=== PATIENT | female | born 2000 | race Caucasian/White ===

== ENCOUNTER 2022-11-14 05:06 | Emergency (ER) | payer BC, OTHER, SELFPAY ==
[2022-11-14 05:19] VITALS: BP 106/75; PULSE 103; RESP 18; TEMP 36.8; O2SAT 96; BMI 51.6
--- NOTE | 2022-11-14 05:44 | PC.NURSE ---
patient c/o nausea and vomiting since 6pm yesterday when she took her colonoscopy prep.patient states she was nauseous before she took it but believes it was due to not eating all day in preparment for colonoscopy this morning at 11am. patient states she still has to finish the rest of her prep at 6am this morning. patient has been having diarrhea since taking prep which is normal. complaints of slight abdominal cramping but states its not that bad vomiting x2
--- NOTE | 2022-11-14 05:51 | ED_ITS ---
HPI - Nausea/Vomiting/Diarrhea General Chief complaint: Nausea/Vomiting/Diarrhea Stated complaint: NAUSEA Time Seen by Provider: 11/14/22 05:10 Source: patient and family Mode of arrival: walk-in Limitations: no limitations History of Present Illness HPI Narrative: This 22-year-old female presents for evaluation of nausea vomiting and diarrhea. She is currently doing a colon prep for colonoscopy later this morning at [facility]. She is having a colonoscopy performed because she had some lower gastrointestinal bleeding in the recent past. She started her colon prep last night around 10 PM and around midnight started having nausea and diarrhea. She has had 2 episodes of vomiting since that time and multiple episodes of diarrhea. She denies any chest pain or shortness of breath. MD elicited complaint: Reports nausea, vomiting and diarrhea Related Data Home Medications Medication Instructions Recorded Confirmed peg-electrolyte solution 420 gram ml 11/14/22 oral solution vits no.130-ferrous fum tab 11/14/22 27 mg iron-folic acid 800 mcg tablet ( Vitamin) Allergies Allergy/AdvReac Type Severity Reaction Status Date / Time amoxicillin Allergy Verified 11/14/22 05:23 Review of Systems ROS Status of ROS 10 or more systems reviewed and unremarkable except as noted in history and below PFSH PFS Social History Smoking status: Never smoker Exam Narrative Exam Narrative: Constitutional: Nontoxic thin female resting comfortably on the stretcher, no respiratory distress, 1 episode of emesis emergency department Vital signs reviewed, the patient is afebrile, she is medically tachycardic with a pulse of 103, she is not hypoxic with pulse ox 96 percent on room air HEENT: Normocephalic atraumatic, mucous membranes are dry, no scleral icterus Neck: supple Chest: Clear to auscultation with good air entry, there is no wheezing rhonchi or rales appreciated, patient speaking in complete sentences CVS: Regular rate and rhythm at 90 and exam, no murmurs rubs or gallops appreciated Abd: Nondistended, nontender, no rebound guarding rigidity, hyperactive bowel sounds appreciated, 1 episode of emesis in emergency department Ext: Nontender, full range of motion Neuro: No focal deficits Psych: tearful Constitutional Vital Signs - 24 hr 11/14/22 05:19 Temperature 98.2 F Pulse Rate [Monitor] 103 H Respiratory Rate 18 Blood Pressure [Right Arm] 106/75 Pulse Oximetry 96 Oxygen Delivery Method Room Air Course Vital Signs Vital signs: Vital Signs Temperature 98.2 F 11/14/22 05:19 Pulse Rate 103 H 11/14/22 05:19 Respiratory Rate 18 11/14/22 05:19 Blood Pressure 106/75 11/14/22 05:19 Pulse Oximetry 96 11/14/22 05:19 Oxygen Delivery Method Room Air 11/14/22 05:19 Temperature 98.2 F 11/14/22 05:19 Pulse Rate 103 H 11/14/22 05:19 Respiratory Rate 18 11/14/22 05:19 Blood Pressure 106/75 11/14/22 05:19 Pulse Oximetry 96 11/14/22 05:19 Oxygen Delivery Method Room Air 11/14/22 05:19 MDM - Nausea/Vomiting/Diarrhea MDM Narrative Medical decision making narrative: This 22-year-old female who is scheduled to have a colonoscopy later today was brought to the emergency department by her mother for evaluation of nausea vomiting and diarrhea. The symptoms started after starting the bowel prep last night. She has had diarrhea throughout the night and has had 2 episodes of vomiting. She does not think she can finish the colon prep. She denies any chest pain or shortness of breath. She has no specific abdominal pain. Her abdomen is soft. She did have an episode of vomiting in the emergency department. An IV is placed and she was medicated with IV fluids, Zofran, Pepcid and Toradol. She was reevaluated and states she is feeling somewhat better. Her vomiting has resolved. She has a normal white count and hemoglobin. lactic acid is normal. She will be discharged home with Rx for zofran. She has decided that she is going to complete the bowel prep this morning and have the colonoscopy She is otherwise improved and stable for discharge. Lab Data Labs: Lab Results 11/14/22 Range/Units 05:35 WBC 8.1 (4.0-11.0) 10^3/uL RBC 4.39 (4.20-5.40) 10^6/uL Hgb 13.4 (12.0-16.0) g/dL Hct 40.2 (36.0-48.0) % MCV 91.6 (81.0-99.0) fL MCH 30.5 (26.7-34.0) pg MCHC 33.3 (29.9-35.2) g/dL RDW 13.5 (11.0-15.0) % Plt Count 168 (150-450) 10^3/uL MPV 10.5 (9.5-13.5) fL Neut % (Auto) 77.2 H (43.0-75.0) % Lymph % (Auto) 15.8 L (20.5-60.0) % Dawes % (Auto) 6.0 (1.7-12.0) % Eos % (Auto) 0.1 L (0.9-7.0) % Baso % (Auto) 0.4 (0.2-2.0) % Neut # (Auto) 6.3 (1.4-6.5) 10^3/uL Lymph # (Auto) 1.3 (1.2-3.8) 10^3/uL Dawes # (Auto) 0.5 (0.3-0.8) 10^3/uL Eos # (Auto) 0.0 (0.0-0.7) 10^3/uL Baso # (Auto) 0.0 (0.0-0.1) 10^3/uL Abs Immat Gran (auto) 0.04 H (0.00-0.03) 10^3/uL Imm/Tot Granulo (auto) 0.5 (0.0-0.5) % Sodium 133 L (136-145) mmol/L Potassium 3.8 (3.5-5.1) mmol/L Chloride 100 (98-107) mmol/L Carbon Dioxide 21.0 (21.0-32.0) mmol/L Anion Gap 15.8 BUN 15.0 (7.0-18.0) mg/dL Creatinine 0.71 (0.55-1.02) mg/dL Est GFR ( Amer) >60 (>=60) Est GFR (Non-Af Amer) >60 (>=60) BUN/Creatinine Ratio 21.1 Glucose 84 (74-106) mg/dL Lactate 1.6 (0.4-2.0) mmol/L Calcium 8.9 (8.5-10.1) mg/dL Total Bilirubin 1.2 H (0.2-1.0) mg/dL AST 17 (15-37) U/L ALT 19 (14-59) U/L Alkaline Phosphatase 81 (46-116) U/L Total Protein 7.1 (6.4-8.2) g/dL Albumin 4.0 (3.4-5.0) g/dL Globulin 3.1 g/dL Albumin/Globulin Ratio 1.3 Lipase 94.0 (73.0-393.0) U/L Discharge Plan Discharge Chief Complaint: Nausea/Vomiting/Diarrhea Clinical Impression: Drug-induced nausea and vomiting Patient Disposition: Home, Self-Care Time of Disposition Decision: 06:58 Condition: Good Prescriptions / Home Meds: No Action peg-electrolyte soln 420 gram recon soln Vitamin 27 mg iron- 800 mcg tablet Stand Alone Forms: Portal Instructions Referrals: EMIR HACKETT [Primary Care Provider] - 1 week
[2022-11-14] MEDS: 0.9 % SODIUM CHLORIDE 1,000 ML 999 ML IV (06:00)
[2022-11-14] MEDS: ONDANSETRON PF 4 MG/2 ML VIAL IV (06:01)
[2022-11-14] MEDS: KETOROLAC TROMETHAMINE 30 MG/ML VIAL 15 MG IVP (06:01)
[2022-11-14] MEDS: FAMOTIDINE/PF 20 MG/2 ML VIAL IV (06:01)
[2022-11-14 06:13] LABS: Basophils Percent Auto 0.4 % (0.2-2.0); Eosinophils Percent Auto 0.1 % (0.9-7.0); Hematocrit 40.2 % (36.0-48.0); Hemoglobin 13.4 g/dL (12.0-16.0); Immature Granulocytes Abs Auto 0.04 10^3/uL (0.00-0.03); Immature Granulocytes Pct Auto 0.5 % (0.0-0.5); Lymphocytes Absolute Auto 1.3 10^3/uL (1.2-3.8); Lymphocytes Percent Auto 15.8 % (20.5-60.0); Mean Corpuscular HGB Conc 33.3 g/dL (29.9-35.2); Mean Corpuscular Hemoglobin 30.5 pg (26.7-34.0); Mean Corpuscular Volume 91.6 fL (81.0-99.0); Mean Platelet Volume 10.5 fL (9.5-13.5); Monocytes Absolute Auto 0.5 10^3/uL (0.3-0.8); Neutrophils Absolute Auto 6.3 10^3/uL (1.4-6.5); Neutrophils Percent Auto 77.2 % (43.0-75.0); Platelet Count 168 10^3/uL (150-450); Red Blood Count 4.39 10^6/uL (4.20-5.40); Red Cell Distribution Width 13.5 % (11.0-15.0); White Blood Count 8.1 10^3/uL (4.0-11.0)
[2022-11-14 06:29] LABS: Lactate/Lactic Acid 1.6 mmol/L (0.4-2.0)
[2022-11-14 06:52] LABS: Alanine Aminotransferase 19 U/L (14-59); Albumin Globulin Ratio 1.3; Alkaline Phosphatase 81 U/L (46-116); Anion Gap 15.8; Aspartate Amino Transferase 17 U/L (15-37); BUN Creatinine Ratio 21.1; Bilirubin Total 1.2 mg/dL (0.2-1.0); Calcium 8.9 mg/dL (8.5-10.1); Chloride 100 mmol/L (98-107); Estimated GFR (African America >60 (>=60); Estimated GFR (Non-African Ame >60 (>=60); Globulin 3.1 g/dL; Glucose 84 mg/dL (74-106); Potassium 3.8 mmol/L (3.5-5.1); Sodium 133 mmol/L (136-145); Total Protein 7.1 g/dL (6.4-8.2)
== END 2022-11-14 07:27 | disposition home or self-care (01) ==
PROVIDERS: Emergency Provider Emergency Medicine; PCP Family Medicine
DX: R11.2 Nausea with vomiting, unspecified (principal); R11.10 Vomiting, unspecified
CPT/HCPCS: 36415; 80053; 83605; 83690; 84703; 85025; 96374; 96375; 99284

== ENCOUNTER 2024-02-19 13:34 | Outpatient (OUT) | payer OTHER, SELFPAY ==
--- NOTE | 2024-02-19 | US_ITS ---
[address] [address] Patient Name: BASSAM FERGUSON MRN: [id number] date: 2000 Sex: F Assigned Patient Location: [facility] Current Patient Location: [facility] Accession/Order Number: [id number] Exam Date: 02/19/2024 13:36 Report Date: 02/19/2024 15:42 At the request of: SHADI VAZQUEZ Procedure: US OB transvaginal EXAMINATION: US OB transvaginal HISTORY: MISSED MENSES COMPARISON: No relevant comparison available. FINDINGS: Transvaginal images Sierra intrauterine gestation Gestational sac: 4.09 cm, 9 weeks 3 days CRL: 2.02 cm, 8 weeks 4 days Yolk sac: 3.7 mm Heart rate: 171 beats minute Cervix: Closed, 4.2 cm Clinical age: 8 weeks 6 days Clinical ARTUR: 09/20/2024 Ultrasound age: 8 weeks 4 days Ultrasound ARTUR: 09/26/2024 US/US OB transvaginal IMPRESSION: Viable sierra intrauterine gestation measuring 8 weeks 4 days Electronically authenticated by: NATASHA HERNANDEZ Date: 02/19/2024 15:42
== END 2024-02-19 13:35 | disposition home or self-care (01) ==
LOC: NOMS 13:35
PROVIDERS: PCP Family Medicine; Visit Provider Obstetrics & Gynecology
DX: Z34.91 Encounter for supervision of normal pregnancy, unspecified, first trimester (principal); Z3A.08 8 weeks gestation of pregnancy; N92.6 Irregular menstruation, unspecified
CPT/HCPCS: 76817

== ENCOUNTER 2024-02-27 10:55 | Outpatient (OUT) | payer OTHER, SELFPAY ==
--- OUTSIDE RECORDS SUMMARY | 2024-02-27 11:01 | XMS_ITS | CCD ---
Author Organization [facility] ion [facility] Care Team Providers Care Clock Maker Name Role Phone DR EMIR HACKETT Primary Care Unavailable ANAI, DR BRIAN Madera Admitting Unavailabl e ANAI, DR BRIAN Madera Attending Unavailabl e ANAI, DR BRIAN Madera Consulting Unavailabl e GRECHNY ., KRISTY ECHAVARRIA Consulting Unavailabl e OWENS, HUGO Consulting Unavailable LEW, DR EMIR Fisher Primary Care Unavailable ERICKA Go, DR MORIN Admitting Unavailable ERICKA Go, DR MORIN Attending Unavailable SHREE, DR AGUSTIN Montes De Oca Consulting Unavailable ERICKA Go, DR MORIN Consulting Unavailable Unavailable Primary Care Provider UnavailCARLI Garcia Referring Unavailable VENITA AMBROSIO Admitting Unavailable VENITA AMBROSIO Attending Unavailable CARLI WILD Referring Unavailable Brian Harris ROBERT Primary Care Provider [phone] MD Brian Elizabeth Primary Care Provider MD Krzysztof Montesinos Admit Provider MD Krzysztof Montesinos Attending Provider [phone] HARRIS MONTAGUE Attending Unavailable EMIR HACKETT Referring Unavailable HARRIS MONTAGUE Primary Care Unavailable HARRIS MONTAGUE Attending Unavailable HARRIS MONTAGUE Referring Unavailable BRIANHARRIS Primary Care Unavailable BRIANHARRIS Referring Unavailable BRIANHARRIS Primary Care Unavailable Glenn, Brian Primary Care Unavailable Demetrius Kelley Attending Unavailable Krzysztof Montesinos Admitting Unavailab le Brian Elizbaeth Primary Care Unavailable Krzysztof Montesinos Admitting Unavailab le Krzysztof Montesinos Attending Unavailab SHADI Trevino Attending Unavailable BRIANKAL FinneyHAMID M Primary Care Unavailable NATASHA ELIZABETH Attending Unavailable HAROLDO SOTO Attending Unavailable HAROLDO SOTO Referring Unavailable BRIAN MUHAMID M Primary Care Unavailable SHADI FLOWERS RDonavan Referring Unavailable BRIAN, MUHAMID M Primary Care Unavailable SHADI FLOWERS RDonavan Referring Unavailable BRIAN MUHAMID M Primary Care Unavailable SHADI FLOWERS RDonavan Referring Unavailable BRIAN, MUHAMID M Primary Care Unavailable SHADI FLOWERS RDonavan Referring Unavailable BRIAN, MUHAMID M Primary Care Unavailable BRIAN, KALHAMID M Primary Care Unavailable ALEX CHAVES Attending Unavailable SHADI FLOWERS Referring Unavailable BRIANKALHAMID M Primary Care Unavailable Allergies Allergy Classification Reported Allergen(s) Allergy Type Date of Onset Reaction(s) Facility (4 sources) Amoxicillin; Translations: [AMOXICILLIN] Drug Allergy 01-14-2021 [facility] Repository (3 sources) Amoxicillin Drug Allergy 04-07-2021 Vomiting [facility] Medications Current Medications Medication Drug Class(es) Dates Sig (Normalized) Sig (Original) nicotine 2 mg chewing gum (1 source) Cholinergic Nicotinic Agonist Start: 11-25-2023 Nicotine (Polacrilex) Active 2 MG BUCCAL Q2H 20 November 25, 2023 12:00am Pnv Cmb#95-Ferrous Fumarate-Fa () 28 mg iron- 800 mcg tablet (1 source) Start: 11-22-2023 take 1 tablet by mouth once daily Pnv Cmb#95-Ferrous Fumarate-Fa () 28 mg iron- 800 mcg tablet Active 1 TAB PO Daily November 22, 2023 12:00am polyethylene glycol 3350 16643 mg powder for oral solution (1 source) Osmotic Laxative Start: 11-22-2023 Polyethylene Glycol 3350 (Miralax) 17 gram/dose powder Active 17 GM PO Daily November 22, 2023 12:00am 25/iron fum/folic/dha (-1 ORAL) (2 sources) take 1 tablet by mouth once daily 25/iron fum/folic/dha (-1 ORAL) Take 1 tablet by mouth daily. 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] Onset: 2 10-23-2022 Chronic Gastrointestinal hemorrhage (3 sources) Gastrointestinal hemorrhage, unspecified; Translations: [Rectal hemorrhage] Onset: 2 Episodic Genitourinary symptoms and ill-defined conditions (3 sources) Personal history of urinary (tract) infections; Translations: [Dysuria] Onset: 3 Episodic Menstrual disorders (1 source) Irregular menstruation, unspecified; Translations: [Irregular menstruation, unspecified] Onset: 4 Chronic Mood disorders (3 sources) Recurrent major depressive episodes, moderate ; Translations: [Major depressive disorder, recurrent, moderate] Onset: 4 11-23-2023 Chronic Mood disorders (3 sources) Mood disorders; Translations: [Depression, unspecified] Onset: 4 07-23-2023 Other gastrointestinal disorders (1 source) Irritable bowel syndrome; Translations: [Mixed irritable bowel syndrome] 07-23-2023 Chronic Other gastrointestinal disorders (1 source) Right lower quadrant abdominal swelling, mass and lump; Translations: [Right lower quadrant abdominal swelling, mass and lump] Onset: 4 Episodic Other lower respiratory disease (4 sources) Shortness of breath; Translations: [SHORTNESS OF BREATH] Onset: 3 Episodic Other and delivery including normal (3 sources) Finding of ; Translations: [Encounter for care and examination of lactating mother] Onset: 2 11-07-2021 Episodic Other screening for suspected conditions (not mental disorders or infectious disease) (2 sources) CT of abdomen abnormal; Translations: [Abnormal findings on diagnostic imaging of other abdominal regions, including retroperitoneum] Onset: 3 Episodic Residual codes; unclassified (1 source) Gestation period, 9 weeks; Translations: [9 weeks gestation of ] 07-23-2023 Episodic Unclassified (1 source) Establish Care Onset: 4 Unclassified (1 source) Vaginal Bleeding - Onset: 4 Unclassified (1 source) Vaginal Bleeding - 10 wks Onset: 4 Urinary tract infections (1 source) Urinary tract infectious disease Onset: 4 Episodic Past or Other Problems Problem Classification Problem Date Documented Da te Episodic/Chronic Abdominal pain (4 sources) Lower abdominal pain, unspecified; Translations: [LOWER ABDOMINAL PAIN UNSPECIFIED] Onset: 02-14-2022 Episodic Hemorrhage during ; abruptio placenta; placenta previa (1 source) Hemorrhage in early , unspecified; Translations: [Hemorrhage in early , unspecified] Onset: 07-30-2023 Episodic Hemorrhoids (2 sources) Residual hemorrhoidal skin tags; Translations: [Other hemorrhoids] Onset: 02-15-2022 Episodic Spontaneous (1 source) Complete or unspecified spontaneous without complication; Translations: [Complete or unspecified spontaneous without complication] Onset: 08-06-2023 Episodic Results Test Name Value Interpretation Reference Range Facility CBC AND AUTO DIFFon 02-19-20 24 ABSOLUTE BASOPHIL 0.0 X10E9/L Normal 0.0-0.[address] [facility] Comment on above: Performed By: #### C MIL [facility], #### [facility] ([id number]) [address] [place] [address] 97396 ABSOLUTE NEUTROPHIL 6.7 X10E9/L High 1.5-6.6 [facility] Comment on above: Performed By: #### C MIL [facility], #### [facility] ([id number]) [address] [place] [address] 56344 Basophils/100 WBC (Bld) 0.3 % Normal [facility] Comment on above: Performed By: #### C MIL [facility], #### [facility] ([id number]) [address] [place] [address] 08147 Eosinophils (Bld) [#/Vol] 0.0 10*3/uL Normal 0.0-0.4 [facility] Comment on above: Performed By: #### Manish JAEGER CMP, #### [facility] ([id number]) [address] [place] [address] 47224 Eosinophils/100 WBC (Bld) 0.4 % Normal [facility] Comment on above: Performed By: #### Manish JAEGER [facility], #### [facility] ([id number]) [address] [place] [address] 04617 Erythrocyte distribution width (RBC) [Ratio] 14.2 % Normal 11.5-15.0 [facility] Comment on above: Performed By: #### Manish JAEGER CMP, #### [facility] ([id number]) [address] [place] [address] 62375 Hematocrit (Bld) [Volume fraction] 40.0 % Normal 35-47 [facility] Comment on above: Performed By: #### Manish JAEGER [facility], #### [facility] ([id number]) [address] [place] [address] 11076 Hemoglobin (Bld) [Mass/Vol] 13.7 g/dL Normal 11.7-15.5 [facility] Comment on above: Performed By: #### Manish JAEGER CMP, #### [facility] ([id number]) [address] [place] [address] 79699 Lymphocytes (Bld) [#/Vol] 1.6 10*3/uL Normal 1.0-3.5 [facility] Comment on above: Performed By: #### Manish JAEGER CMP, #### [facility] ([id number]) [address] [place] [address] 86425 Lymphocytes/100 WBC (Bld) 17.6 % Normal [facility] Comment on above: Performed By: #### Manish JAEGER CMP, #### [facility] ([id number]) [address] [place] [address] 75355 MCH (RBC) [Entitic mass] 31.3 pg Normal 27-34 [facility] Comment on above: Performed By: #### Manish JAEGER CMP, #### [facility] ([id number]) [address] [place] [address] 07475 MCHC (RBC) [Mass/Vol] 34.3 g/dL Normal 32-36 [facility] Comment on above: Performed By: #### Manish JAEGER CMP, #### [facility] ([id number]) [address] [place] [address] 13060 MCV (RBC) [Entitic vol] 91 fL Normal 80-100 [facility] Comment on above: Performed By: #### Manish JAEGER CMP, #### [facility] ([id number]) [address] [place] [address] 14033 Monocytes (Bld) [#/Vol] 0.6 10*3/uL Normal 0-0.9 [facility] Comment on above: Performed By: #### Manish JAEGER CMP, #### [facility] ([id number]) [address] [place] [address] 58403 Monocytes/100 WBC (Bld) 6.6 % Normal [facility] Comment on above: Performed By: #### Manish JAEGER CMP, #### [facility] ([id number]) [address] [place] [address] 08970 Neutrophils/100 WBC (Bld) 75.1 % Normal [facility] Comment on above: Performed By: #### Manish JAEGER CMP, #### [facility] ([id number]) [address] [place] [address] 96189 Platelet mean volume (Bld) [Entitic vol] 9.0 fL Normal 7-12 [facility] Comment on above: Performed By: #### C MIL CMP, #### [facility] ([id number]) [address] [place] [address] 02723 Platelets (Bld) [#/Vol] 173 10*3/uL Normal 150-450 [facility] Comment on above: Performed By: #### C MIL CMP, #### [facility] ([id number]) [address] [place] [address] 57130 RBC COUNT 4.39 X10E12/L Normal 3.80-5.20 [facility] Comment on above: Performed By: #### Manish JAEGER CMP, #### [facility] ([id number]) [address] [place] [address] 16185 WBC (Bld) [#/Vol] 8.9 10*3/uL Normal 4.0-11.[address] [facility] Comment on above: Performed By: #### Manish JAEGER CMP, #### [facility] ([id number]) [address] [place] [address] 90613 DRUG SCREEN, URINEon 024 AMPHETAMINE/METHAMP Negative Normal NEG [facility] Comment on above: Result Comment: AMPH /METH screening cut off = 1000 ng/mL Performed By: #### C MIL CMP, #### [facility] ([id number]) [address] [place] [address] 89090 BARBITURATES Negative Normal NEG [facility] Comment on above: Result Comment: Marcela iturates screening cut off value = 200 ng/mL Performed By: #### C MIL, CMP, #### [facility] ([id number]) [address] [place] [address] 14244 BENZODIAZEPINES Negative Normal [facility] Comment on above: Result Comment: Jose odiazepines screening cut off value = 200 ng/mL Performed By: #### C MIL [facility], #### [facility] ([id number]) [address] [place] [address] 34706 CANNABINOIDS Negative Normal NEG [facility] Comment on above: Result Comment: Tre abinoids/THC screening cut off value = 50 ng/mL Performed By: #### C MIL [facility], #### [facility] ([id number]) [address] [place] [address] 38804 COCAINE METABOLITE Negative Normal NEG [facility] Comment on above: Result Comment: Coca ine screening cut off value = 300 ng/mL Performed By: #### C MIL [facility], #### [facility] ([id number]) [address] [place] [address] [address] [facility] Comment on above: Result Comment: Ecst asy screening cut off value = 500 ng/mL This report is intended for use in clinical monitoring or management of patients. Performed By: #### C MIL [facility], #### [facility] ([id number]) [address] [place] [address] 42424 [address] [facility] Comment on above: Result Comment: Meth adone screening cut off value = 300 ng/mL. Performed By: #### C MIL [facility], #### [facility] ([id number]) [address] [place] [address] 43144 OPIATES Negative Normal NEG [facility] Comment on above: Result Comment: Opia krys screening cut off value = 300 ng/mL NOTE: This test is used for the detection of codeine, hydrocodone (>1000 ng/mL), morphine and hydromorphone (>900 ng/mL) in urine. Performed By: #### C NIKA JAEGER, #### [facility] ([id number]) [address] [place] [address] 16136 OXYCODONE Negative Normal NEG [facility] Comment on above: Result Comment: Oxyc odone screening cut off value = 300 ng/mL NOTE: This test is used for the detection of oxycodone and oxymorphone in urine. Performed By: #### C NIKA JAEGER, #### [facility] ([id number]) [address] [place] [address] 32655 PHENCYCLIDINE Negative Normal NEG [facility] Comment on above: Result Comment: Phen cyclidine screening cut off value = 25 ng/mL Performed By: #### Manish JAEGER CMP, #### [facility] ([id number]) [address] [place] [address] 55965 HBV surface Ag IA Qlon 02-18 HEPATITIS B SURF AG Negative Normal NEG [facility] Comment on above: Performed By: #### Manish JAEGER CMP, #### [facility] ([id number]) [address] [place] [address] 13509 HCV Ab IA Qlon 02-19-2024 ANTI HCV W/PCR REFLX Non-Reactive Normal NRCT [facility] Comment on above: Result Comment: If recent infection suspected, recommend repeat testing (>2 months). Bcumrg-mm-ulifwm ratio is <0.80. Performed By: #### C NIKA JAEGER, #### [facility] ([id number]) [address] [place] [address] 80091 HGB A1C (GLYCO-HGB)on 2023 Glucose [Mass/Vol] 105 mg/dL Normal [facility] Comment on above: Performed By: #### C NIKA JAEGER, #### [facility] ([id number]) [address] [place] [address] 94168 HbA1c (Bld) [Mass fraction] 5.3 % Normal 4.4-5.6 [facility] Comment on above: Result Comment: NOTE ADA Guidelines Result HgbA1c Normal : less than 5.7 % Prediabetes : 5.7 % to 6.4 % Diabetes : > 6.4 % Use with caution in patients with abnormal hemoglobin variants as the half-life of red blood cells and in vivo glycation rates are affected. Performed By: #### C NIKA JAEGER, #### [facility] ([id number]) [address] [place] [address] 21683 HIV 1+2 Ab+HIV1 p24 Ag IA Ql on 02-19-2024 HIV 1 and 2 Ab/Ag Screen Non-Reactive Normal NRCT [facility] Comment on above: Result Comment: This information has been disclosed to you from confidential records protected from disclosure by state law. You shall make no further disclosure of this information without the specific, written and informed release of the individual to whom it pertains, or as otherwise permitted by state law. A general authorization for the release of medical or other information is not sufficient for the purpose of the release of HIV test results or diagnoses. Performed By: #### C NIKA JAEGER, #### [facility] ([id number]) [address] [place] [address] 28060 Rubella virus IgG Qn (S)on RUBELLA IgG 119 IU/mL Normal [facility] Comment on above: Result Comment: Interpretation-------- <8 NEGATIVE-considered Not Immune 8-9 EQUIVOCAL-consider retesting with new specimen >9 POSITIVE-considered Immune Performed By: #### C NIKA JAEGER, #### [facility] ([id number]) [address] [place] [address] 22231 T. pallidum IgG+IgM IA Ql (S )on 02-19-2024 Syphilis Total <0.2 Normal 0.0-0.8 [facility] Comment on above: Result Comment: NON REACTIVE No serologic evidence of infection to Treponema pallidum (syphilis). Repeat testing may be considered in patients with suspected acute or primary syphilis in 2 to 4 weeks. Performed By: #### C NIKA JAEGER, #### [facility] ([id number]) [address] [place] [address] 54605 URINE CULTUREon 02-19-2024 Bacteria identified Cx Nom (U) CULTURE RESULTS 10-50,000 ORGANISMS/mL NORMAL UROGENITAL KACEY Normal [facility] Comment on above: Performed By: #### C MIL [facility], #### [facility] ([id number]) [address] [place] [address] 85085 URINE CULTUREon 02-05-2024 Bacteria identified Cx Nom (U) CULTURE RESULTS 10-50,000 ORGANISMS/mL NORMAL UROGENITAL KACEY Normal [facility] Comment on above: Performed By: #### 6 30-4 #### [facility] ([id number]) [address], [address] [place] [address] Alanine aminotransferase [En zymatic activity/volume] in Serum or PlasmaOrdered By: Krzysztof Montesinos on 11-24-2023 ALT [Catalytic activity/Vol] 9 U/L Normal 7-52 [facility] Comment on above: Performed By: #### C MP #### [facility] [address] [place] [address] [facility] Albumin [Mass/volume] in Ser um or Plasma by Bromocresol green (BCG) dye binding methoOrdered By: Krzysztof Montesinos on 11-24-2023 Albumin BCG dye [Mass/Vol] 4.3 g/dL 3.5-5.7 [facility] Alkaline phosphatase [Enzyma tic activity/volume] in Serum or PlasmaOrdered By: Krzysztof Montesinos on 11-24-2023 ALP [Catalytic activity/Vol] 39 U/L Normal 34-104 [facility] Comment on above: Performed By: #### C MP #### [address] Aspartate aminotransferase [ Enzymatic activity/volume] in Serum or PlasmaOrdered By: Krzysztof Montesinos on 11-24-2023 AST [Catalytic activity/Vol] 14 U/L Normal 13-39 [facility] Comment on above: Performed By: #### C MP #### [address] Bilirubin.total [Mass/volume ] in Serum or PlasmaOrdered By: Krzysztof Montesinos on 11-24-2023 Bilirubin [Mass/Vol] 1.0 mg/dL Normal 0.3-1.0 [facility] Comment on above: Performed By: #### C MP #### [address] Calcium [Mass/volume] in Ser um or PlasmaOrdered By: Krzysztof Montesinos on 11-24-2023 Calcium [Mass/Vol] 9.0 mg/dL Normal 8.6-10.3 [facility] Comment on above: Performed By: #### C MP #### [place] [address] [place] Carbon dioxide, total [Moles /volume] in Serum or PlasmaOrdered By: Krzysztof Montesinos on 11-24-2023 CO2 [Moles/Vol] 25.4 mmol/L Normal 21.0-31.0 [facility] Comment on above: Performed By: #### C MP #### [place] [address] [place] Chloride [Moles/volume] in S delgado or PlasmaOrdered By: Krzysztof Montesinos on 11-24-2023 Chloride [Moles/Vol] 111 mmol/L High 98-107 [facility] Comment on above: Performed By: #### C MP #### [address] Comprehensive Metabolic Pane thomas 11-24-2023 Albumin [Mass/Vol] 4.3 g/dL Normal 3.5-5.7 [facility] Comment on above: Performed By: #### C MP #### [place] [address] [place] Creatinine Clr Calc Pharmacy 94.43 Normal [facility] Comment on above: Result Comment: PERF ORMED BY: [place] [address] PATHOLOGIST MARINE FIRE FIGHTER MARGARITA CUELLAR M.D. Performed By: #### C MP #### [address] GFR/1.73 sq M.predicted MDRD (S/P/Bld) [Vol rate/Area] mL/min/{1.73_m2} Normal [facility] Comment on above: Performed By: #### C MP #### [address] Creatinine [Mass/volume] in Serum or PlasmaOrdered By: Krzysztof Montesinos on 11-24-2023 Creatinine [Mass/Vol] 0.86 mg/dL Normal 0.60-1.20 [facility] Comment on above: Performed By: #### C MP #### [place] [address] [place] Glucose [Mass/volume] in Ser um or PlasmaOrdered By: Krzysztof Montesinos on 11-24-2023 Glucose [Mass/Vol] 94 mg/dL Normal 70-100 [facility] Comment on above: ADA recommended refe rence rangeRandom Glucose Reference Range is dependent on time and content of last meal. Glucose of more than 200 mg/dL in a nonstressed, ambulatory subject supports the diagnosis of Diabetes Mellitus. Result Comment: [facility] Glucose Reference Range is dependent on time and content of last meal. Glucose of more than 200 mg/dL in a nonstressed, ambulatory subject supports the diagnosis of Diabetes Mellitus. ADA recommended reference range Performed By: #### C MP #### [address] No Panel InformationOrdered By: Krzysztof Montesinos on 11-24-2023 Estimated GFR (CKD-EPI) > 60.0 mL/Min [facility] Creatinine Clearance (Chem 94.43 [facility] Potassium [Moles/volume] in Serum or PlasmaOrdered By: Krzysztof Montesinos on 11-24-2023 Potassium [Moles/Vol] 4.7 mmol/L Normal 3.5-5.1 [facility] Comment on above: Performed By: #### C MP #### [address] Protein [Mass/volume] in Ser um or PlasmaOrdered By: Krzysztof Montesinos on 11-24-2023 Protein [Mass/Vol] 6.7 g/dL Normal 6.4-8.9 [facility] Comment on above: Performed By: #### C MP #### [address] Serum globulin measurement b y calculation (mass/volume)Ordered By: Krzysztof Montesinos on 11-24-2023 Globulin (S) [Mass/Vol] 2.4 g/dL Normal [facility] Comment on above: Performed By: #### C MP #### [address] Serum or plasma albumin/glob ulin mass ratioOrdered By: Krzysztof Montesinos on 11-24-2023 Albumin/Globulin [Mass ratio] 1.8 {ratio} Normal [facility] Comment on above: Performed By: #### C MP #### [address] [place] [address] [place] Serum or plasma anion gap de terminationOrdered By: Krzysztof Montesinos on 11-24-2023 Anion gap [Moles/Vol] 9.3 mmol/L Normal 6.0-15.0 [facility] Comment on above: Performed By: #### C MP #### [place] [address] [place] Sodium [Moles/volume] in Ser um or PlasmaOrdered By: Krzysztof Montesinos on 11-24-2023 Sodium [Moles/Vol] 141 mmol/L Normal 136-145 [facility] Comment on above: Performed By: #### C MP #### [address] Urea nitrogen [Mass/volume] in Serum or PlasmaOrdered By: Krzysztof Montesinos on 11-24-2023 Urea nitrogen [Mass/Vol] 12 mg/dL Normal 7-25 [facility] Comment on above: Performed By: #### C MP #### [address] Cholesterol [Mass/volume] in Serum or PlasmaOrdered By: Krzysztof Montesinos on 11-23-2023 Cholesterol [Mass/Vol] 129 mg/dL Low 140-200 [facility] Comment on above: Chol less than 200 m g/dl low riskChol 201-239 mg/dl borderline riskChol 240 mg/dl and greater high risk Result Comment: Chol less than 200 mg/dl low risk Chol 201-239 mg/dl borderline risk Chol 240 mg/dl and greater high risk Performed By: #### L IPID, TSH3 [id number] #### [place] [address] [place] Cholesterol in LDL Calc [Mas s/Vol]Ordered By: Krzysztof Montesinos on 11-23-2023 Cholesterol in LDL [Mass/Vol] 64 mg/dL 0-100 [facility] Comment on above: LDL ATP III CLASSIFI CATIONLDL less than 100 mg/dL OptimalLDL 100-129 mg/dL Near or above optimalLDL 130-159 mg/dL Borderline highLDL 160-189 mg/dL HighLDL greater than 189 mg/dL Very high Cholesterol in VLDL Calc [Ma ss/Vol]Ordered By: Krzysztof Montesinos on 11-23-2023 Cholesterol in VLDL [Mass/Vol] 7 mg/dL [facility] Lipid Panelon 11-23-2023 LDL Cholesterol,Calculated 64 mg/dL Normal 0-100 [facility] Comment on above: Result Comment: LDL ATP III CLASSIFICATION LDL less than 100 mg/dL Optimal LDL 100-129 mg/dL Near or above optimal LDL 130-159 mg/dL Borderline high LDL 160-189 mg/dL High LDL greater than 189 mg/dL Very high Performed By: #### L IPID, TSH3 wRFLX, [id number] #### [facility] [address] Triglyceride w/Reflex 39 mg/dL Normal 0-149 [facility] Comment on above: Result Comment: TRIG ATP III CLASSIFICATION TRIG less than 150 mg/dL Normal TRIG 150-199 mg/dL Borderline high TRIG 200-500 mg/dL High TRIG greater than 500 mg/dL Very high Standard traceable to the Center for Disease Conrtrol and Prevention (CDC) test method. Performed By: #### L IPID, TSH3 wRFLX, [id number] #### [facility] [address] VLDL CHOLESTEROL 7 mg/dL Normal [facility] Comment on above: Performed By: #### L IPID, TSH3 wRFLX, [id number] #### [facility] [address] [place] [address] [facility] Serum or plasma high density lipoprotein (HDL) cholesterol measurementOrdered By: Krzysztof Montesinos on 11-23-2023 Cholesterol in HDL [Mass/Vol] 57 mg/dL Normal 23-92 [facility] Comment on above: HDL CHOL ATP-III CLA SSIFICATION Cardiovascular RiskHDL > or equal to 60 mg/dL LOWHDL < 40 mg/dL HIGH Result Comment: HDL CHOL ATP-III CLASSIFICATION Cardiovascular Risk HDL > or equal to 60 mg/dL LOW HDL < 40 mg/dL HIGH Performed By: #### L IPID, TSH3 wRFLX, [id number] #### [facility] [address] Serum or plasma total choles terol/high density lipoprotein (HDL) cholesterol mass ratOrdered By: Krzysztof Montesinos on 11-23-2023 Cholesterol.total/Choles terol in HDL [Mass ratio] 2.3 {ratio} Normal <5.0 [facility] Comment on above: Performed By: #### L IPID, TSH3 wRFLX, [id number] #### [facility] [address] Thyroid Stim Hormone w/Rflxo n 11-23-2023 Thyroid Stim Hormone w/Rflx 1.52 u[iU]/mL Normal 0.45-5.33 [facility] Comment on above: Performed By: #### L IPID, TSH3 wRFLX, [id number] #### [facility] [address] [place] [address] Thyrotropin [Units/volume] i n Serum or PlasmaOrdered By: Krzysztof Montesinos on 11-23-2023 TSH Qn 1.52 m[IU]/L 0.45-5.33 [facility] Triglyceride [Mass/volume] i n Serum or PlasmaOrdered By: Krzysztof Montesinos on 11-23-2023 Triglyceride [Mass/Vol] 39 mg/dL 0-149 [facility] Comment on above: TRIG ATP III CLASSIF ICATIONTRIG less than 150 mg/dL NormalTRIG 150-199 mg/dL Borderline highTRIG 200-500 mg/dL High TRIG greater than 500 mg/dL Very highStandard traceable to the Center for Disease Conrtrol and Prevention (CDC) test method. Vitamin D 25 Hydroxy Totalon 11-23-2023 Vitamin D 25 Hydroxy Total 23.9 ng/mL Low 30-100 [facility] Comment on above: Result Comment: NATE MIN D STATUS 25(OH)VITAMIN D RANGE (ng/mL) Deficient <20 Insufficient 20 to <30 Sufficient 30 to 100 Reference: Shanthi MF,Ysabel NC, Jia CABRERA, et al. Evaluation,treatment, and prevention of vitamin D deficiency; an Endocrine Society clinical practice guideline. JCEM. 2010; 96(7):1911-30. PERFORMED BY: [facility] [address] [facility] [address] [place] [address] PATHOLOGIST MARINE [employer]RE FIGHTER MARGARITA CUELLAR M.D. Performed By: #### L IPID, TSH3 wRFLX, [id number] #### [facility] [address] [place] [address] [facility] Vitamin D+Metabolites [Mass/ volume] in Serum or PlasmaOrdered By: Krzysztof Montesinos on 11-23-2023 Vitamin D+Metabolites [Mass/Vol] 23.9 ng/mL Low 30-100 [facility] Comment on above: VITAMIN D STATUS 25( [place])VITAMIN D RANGE (ng/mL) Deficient <20 Insufficient 20 to <30Sufficient 30 to 100Reference: Shanthi CHERRY,Ysabel PACKER, Jia CABRERA, et al. Evaluation,treatment, and prevention of vitamin D deficiency; an Endocrine Society clinical practice guideline. JCEM. 2010; 96(7):1911-30. BASIC METABOLIC PANLon 11-21 Anion gap [Moles/Vol] 6 mmol/L Normal 5-15 [facility] Comment on above: Performed By: #### C BCA, CMP, #### [facility] ([id number]) [address] [place] [address] 76899 Calcium [Mass/Vol] 8.6 mg/dL Normal 8.5-10.5 [facility] Comment on above: Performed By: #### C BCA, CMP, #### [facility] ([id number]) [address] [place] [address] 45931 Chloride [Moles/Vol] 108 mmol/L Normal 98-109 [facility] Comment on above: Performed By: #### C BCA, CMP, #### [facility] ([id number]) [address] [place] [address] 03396 CO2 [Moles/Vol] 22 mmol/L Normal 22-32 [facility] Comment on above: Performed By: #### C NIKA JAEGER, #### [facility] ([id number]) [address] [place] [address] 37742 Creatinine [Mass/Vol] 0.84 mg/dL Normal 0.40-1.00 [facility] Comment on above: Result Comment: METH OD TRACEABLE TO IDMS STANDARD Performed By: #### C NIKA JAEGER, #### [facility] ([id number]) [address] [place] [address] 68825 eGFR (CKD-EPI) NON-RACE DEPENDENT >90 Normal >59 [facility] Comment on above: Result Comment: Reported eGFR is based on the CKD-EPI 2020 equation that does not use a race coefficient. Performed By: #### C NIKA JAEGER, #### [facility] ([id number]) [address] [place] [address] 55249 Glucose [Mass/Vol] 98 mg/dL Normal 65-[address] [facility] Comment on above: Performed By: #### C NIKA JAEGER, 47605-9 #### [facility] ([id number]) [address] [place] [address] 74493 Potassium [Moles/Vol] 3.3 mmol/L Low 3.5-5.0 [facility] Comment on above: Performed By: #### C NIKA JAEGER, #### [facility] ([id number]) [address] [place] [address] 14586 Sodium [Moles/Vol] 136 mmol/L Normal 134-[address] [facility] Comment on above: Performed By: #### C NIKA JAEGER, #### [facility] ([id number]) [address] [place] [address] 21361 Urea nitrogen [Mass/Vol] 14 mg/dL Normal 5-23 [facility] Comment on above: Performed By: #### Manish JAEGER CMP, #### [facility] ([id number]) [address] [place] [address] 21280 CBC AND AUTO DIFFon 11-22-19 24 ABSOLUTE BASOPHIL 0.0 X10E9/L Normal 0.0-0.[address] [facility] Comment on above: Performed By: #### C NIKA JAEGER, #### [facility] ([id number]) [address] [place] [address] 93126 ABSOLUTE NEUTROPHIL 5.3 X10E9/L Normal 1.5-6.6 [facility] Comment on above: Performed By: #### Manish JAEGER CMP, #### [facility] ([id number]) [address] [place] [address] 97025 Basophils/100 WBC (Bld) 0.5 % Normal [facility] Comment on above: Performed By: #### Manish JAEGER [facility], #### [facility] ([id number]) [address] [place] [address] 93493 Eosinophils (Bld) [#/Vol] 0.1 10*3/uL Normal 0.0-0.4 [facility] Comment on above: Performed By: #### Manish JAEGER CMP, #### [facility] ([id number]) [address] [place] [address] 27957 Eosinophils/100 WBC (Bld) 0.7 % Normal [facility] Comment on above: Performed By: #### Manish JAEGER CMP, #### [facility] ([id number]) [address] [place] [address] 52066 Erythrocyte distribution width (RBC) [Ratio] 14.2 % Normal 11.5-15.0 [facility] Comment on above: Performed By: #### Manish JAEGER CMP, #### [facility] ([id number]) [address] [place] [address] 61642 Hematocrit (Bld) [Volume fraction] 41.6 % Normal 35-47 [facility] Comment on above: Performed By: #### Manish JAEGER CMP, #### [facility] ([id number]) [address] [place] [address] 10154 Hemoglobin (Bld) [Mass/Vol] 14.3 g/dL Normal 11.7-15.5 [facility] Comment on above: Performed By: #### Manish JAEGER CMP, #### [facility] ([id number]) [address] [place] [address] 72082 Lymphocytes (Bld) [#/Vol] 1.8 10*3/uL Normal 1.0-3.5 [facility] Comment on above: Performed By: #### Manish JAEGER CMP, #### [facility] ([id number]) [address] [place] [address] 86231 Lymphocytes/100 WBC (Bld) 23.3 % Normal [facility] Comment on above: Performed By: #### Manish JAEGER CMP, #### [facility] ([id number]) [address] [place] [address] 36039 MCH (RBC) [Entitic mass] 30.6 pg Normal 27-34 [facility] Comment on above: Performed By: #### Manish JAEGER CMP, #### [facility] ([id number]) [address] [place] [address] 49419 MCHC (RBC) [Mass/Vol] 34.5 g/dL Normal 32-36 [facility] Comment on above: Performed By: #### C MIL CMP, #### [facility] ([id number]) [address] [place] [address] 07150 MCV (RBC) [Entitic vol] 89 fL Normal 80-100 [facility] Comment on above: Performed By: #### C MIL, CMP, #### [facility] ([id number]) [address] [place] [address] 08653 Monocytes (Bld) [#/Vol] 0.5 10*3/uL Normal 0-0.9 [facility] Comment on above: Performed By: #### Manish JAEGER CMP, #### [facility] ([id number]) [address] [place] [address] 67252 Monocytes/100 WBC (Bld) 6.6 % Normal [facility] Comment on above: Performed By: #### Manish JAEGER CMP, #### [facility] ([id number]) [address] [place] [address] 04923 Neutrophils/100 WBC (Bld) 68.9 % Normal [facility] Comment on above: Performed By: #### Manish JAEGER, CMP, #### [facility] ([id number]) [address] [place] [address] 90453 Platelet mean volume (Bld) [Entitic vol] 9.0 fL Normal 7-12 [facility] Comment on above: Performed By: #### Manish JAEGER, CMP, #### [facility] ([id number]) [address] [place] [address] 66198 Platelets (Bld) [#/Vol] 186 10*3/uL Normal 150-450 [facility] Comment on above: Performed By: #### Manish JAEGER, CMP, #### [facility] ([id number]) [address] [place] [address], [place] [address] RBC COUNT 4.68 X10E12/L Normal 3.80-5.20 [facility] Comment on above: Performed By: #### C MIL, CMP, #### [facility] ([id number]) [address] [place] [address] 19494 WBC (Bld) [#/Vol] 7.7 10*3/uL Normal 4.0-11.[address] [facility] Comment on above: Performed By: #### C MIL, CMP, #### [facility] ([id number]) [address] [place] [address] 62633 DRUG SCREEN, URINEon 024 AMPHETAMINE/METHAMP Negative Normal NEG [facility] Comment on above: Result Comment: AMPH /METH screening cut off = 1000 ng/mL Performed By: #### C MIL, [facility], #### [facility] ([id number]) [address] [place] [address] 06674 BARBITURATES Negative Normal NEG [facility] Comment on above: Result Comment: Marcela iturates screening cut off value = 200 ng/mL Performed By: #### C MIL, [facility], #### [facility] ([id number]) [address] [place] [address] 57177 BENZODIAZEPINES Negative Normal NEG [facility] Comment on above: Result Comment: Jose odiazepines screening cut off value = 200 ng/mL Performed By: #### C MIL, [facility], #### [facility] ([id number]) [address] [place] [address] 83180 CANNABINOIDS Negative Normal NEG [facility] Comment on above: Result Comment: Tre abinoids/THC screening cut off value = 50 ng/mL Performed By: #### C BCA, CMP, #### [facility] ([id number]) [address] [place] [address] 16390 COCAINE METABOLITE Negative Normal NEG [facility] Comment on above: Result Comment: Coca ine screening cut off value = 300 ng/mL Performed By: #### C NIKA JAEGER, #### [facility] ([id number]) [address] [place] [address] 48123 ECSTASY Negative Normal NEG [facility] Comment on above: Result Comment: Ecst asy screening cut off value = 500 ng/mL This report is intended for use in clinical monitoring or management of patients. Performed By: #### C NIKA JAEGER, #### [facility] ([id number]) [address] [place] [address] 35475 METHADONE Negative Normal NEG [facility] Comment on above: Result Comment: Meth adone screening cut off value = 300 ng/mL. Performed By: #### C MIL [facility], #### [facility] ([id number]) [address] [place] [address] 46390 OPIATES Negative Normal NEG [facility] Comment on above: Result Comment: Opia krys screening cut off value = 300 ng/mL NOTE: This test is used for the detection of codeine, hydrocodone (>1000 ng/mL), morphine and hydromorphone (>900 ng/mL) in urine. Performed By: #### C MIL [facility], #### [facility] ([id number]) [address] [place] [address] 27777 OXYCODONE Negative Normal NEG [facility] Comment on above: Result Comment: Oxyc odone screening cut off value = 300 ng/mL NOTE: This test is used for the detection of oxycodone and oxymorphone in urine. Performed By: #### C NIKA JAEGER, #### [facility] ([id number]) [address] [place] [address] 89754 PHENCYCLIDINE Negative Normal NEG [facility] Comment on above: Result Comment: Phen cyclidine screening cut off value = 25 ng/mL Performed By: #### C NIKA JAEGER, 70878-5 #### [facility] ([id number]) [address] [place] [address] 56253 ECG 12 lead ECGon 11-22-2023 ECG 12 lead ECG [facility] [place] [address] [place] [address] 25997 Electrocardiograph Report Signed Patient: Megan Collado MR#: [id number] : 2000 Acct:[id number] Age/Sex: 23 / F ADM Date: 11/22/23 Loc: Room: [address] [place] [address] Type: ADM IN Attending Dr: Krzysztof Montesinos MD Ordering Provider: Krzysztof Montesinos MD Date of Service: 11/22/2311/09/1412 ECG/ECG 12 lead ECG: New Admit Copies to: Test Reason : Blood Pressure : / mmHG Vent. Rate : 096 BPM Atrial Rate : 096 BPM P-R Int : 108 ms QRS Dur : 066 ms QT Int : 356 ms P-R-T Axes : 041 081 049 degrees QTc Int : 449 ms Sinus rhythm with sinus arrhythmia with short MT Otherwise normal ECG No previous ECGs available Confirmed by HODAN ROBERT [facility], GEMA ([id number]) on 11/23/2023 9:57:14 AM Referred By: Electronically Signed By:GEMA SLAUGHTER MD [facility] Transcribed By: MUS Signed By Gema Slaughter MD, [facility] 11/23/23 0957 Normal [facility] ETHANOLon 11-22-2023 Ethanol [Mass/Vol] mg/dL Normal 0.00-0.[address] [facility] Comment on above: Result Comment: This report is intended for use in clinical monitoring or management of patients. Performed By: #### C NIKA JAEGER, 86717-1 #### [facility] ([id number]) [address] [place] [address] 41284 HCG ( test) Ql (U)o n 11-22-2023 Beta HCG ( test) Ql (U) Negative Normal NEG [facility] Comment on above: Performed By: #### 2 106-3 #### [facility] ([id number]) [address] [place] [address] 23270 TSH Qnon 11-22-2023 TSH 1.42 uIU/mL Normal 0.49-4.67 [facility] Comment on above: Performed By: #### C BCA, CMP, 20874-3 #### [facility] ([id number]) [address] [place] [address] 05286 URN MACROSCOPIC NURon 2023 BILIRUBIN BAO Negative Normal NEG [facility] Comment on above: Performed By: #### N UM #### [facility] ([id number]) [address] [place] [address] 10181 BLOOD/HGB BAO Negative Normal NEG [facility] Comment on above: Performed By: #### N UM #### [facility] ([id number]) [address] [place] [address] 01949 GLUCOSE BAO Negative Normal NEG [facility] Comment on above: Performed By: #### N UM #### [facility] ([id number]) [address] [place] [address] [place] [address] KETONES BAO Negative Normal NEG [facility] Comment on above: Performed By: #### N UM #### [facility] ([id number]) [address] [place] [address] [place] [address] LEUKOCYTE ESTERASE BAO Negative Normal NEG [facility] Comment on above: Performed By: #### N UM #### [facility] ([id number]) [address] [place] [address] [place] [address] NITRITE BAO Negative Normal NEG [facility] Comment on above: Performed By: #### N UM #### [facility] ([id number]) [address] [place] [address] PH BAO 6.5 Normal 5.0-8.5 [facility] Comment on above: Performed By: #### N UM #### [facility] ([id number]) [address] [place] [address] PROTEIN BAO Negative Normal NEG [facility] Comment on above: Performed By: #### N UM #### [facility] ([id number]) [address] [place] [address] 12709 SPECIFIC GRAVITY BAO 1.010 Normal 1.003-1.035 [facility] Comment on above: Performed By: #### N UM #### [facility] ([id number]) [address] [place] [address] 62870 UROBILINOGEN BAO 0.2 eu/dL Normal <1.1 [facility] Comment on above: Performed By: #### N UM #### [facility] ([id number]) [address] [place] [address] 72379 HCG.beta subunit IA 3rd IS Q non 08-29-2023 SERUM B HCG,3RD I.S. <5 Normal [facility] Comment on above: Result Comment: NEW REFERENCE RANGE WEEKS (SINCE LMP) MIU/mL 3 WEEKS 5 - 50 4 WEEKS 5 - 426 5 WEEKS 18 - 7,340 6 WEEKS 1,080 - 56,500 7-8 WEEKS 7,650 - 229,000 9-12 WEEKS 25,700 - 288,000 13-16 WEEKS 13,300 - 254,000 17-24 WEEKS 4,060 - 165,400 25-40 WEEKS 3,640 - 117,000 MALES AND NON- FEMALES - <5 MIU/mL This test has been FDA approved for use in only. Elevated levels are not necessarily diagnostic for trophoblastic or nontrophoblastic neoplasms. Performed By: #### 2 0415-6 #### [facility] ([id number]) [address] [place] [address], [address] [place] [id number] HCG.beta subunit IA 3rd IS Q non 08-22-2023 HCG.beta subunit Qn 11 m[IU]/mL Normal [facility] Comment on above: Result Comment: NEW REFERENCE RANGE WEEKS (SINCE LMP) MIU/mL 3 WEEKS 5 - 50 4 WEEKS 5 - 426 5 WEEKS 18 - 7,340 6 WEEKS 1,080 - 56,500 7-8 WEEKS 7,650 - 229,000 9-12 WEEKS 25,700 - 288,000 13-16 WEEKS 13,300 - 254,000 17-24 WEEKS 4,060 - 165,400 25-40 WEEKS 3,640 - 117,000 MALES AND NON- FEMALES - <5 MIU/mL This test has been FDA approved for use in only. Elevated levels are not necessarily diagnostic for trophoblastic or nontrophoblastic neoplasms. Performed By: #### 2 0415-6 #### [facility] ([id number]) [address] [place] [address], [address] [place] [address] HCG.beta subunit IA 3rd IS Q non 08-13-2023 HCG.beta subunit Qn 60 m[IU]/mL Normal [facility] Comment on above: Result Comment: NEW REFERENCE RANGE WEEKS (SINCE LMP) MIU/mL 3 WEEKS 5 - 50 4 WEEKS 5 - 426 5 WEEKS 18 - 7,340 6 WEEKS 1,080 - 56,500 7-8 WEEKS 7,650 - 229,000 9-12 WEEKS 25,700 - 288,000 13-16 WEEKS 13,300 - 254,000 17-24 WEEKS 4,060 - 165,400 25-40 WEEKS 3,640 - 117,000 MALES AND NON- FEMALES - <5 MIU/mL This test has been FDA approved for use in only. Elevated levels are not necessarily diagnostic for trophoblastic or nontrophoblastic neoplasms. Performed By: #### 2 0415-6 #### [facility] ([id number]) [address], [address] [place] [address] HCG.beta subunit IA 3rd IS Q non 08-06-2023 HCG.beta subunit Qn 394 m[IU]/mL Normal [facility] Comment on above: Result Comment: NEW REFERENCE RANGE WEEKS (SINCE LMP) MIU/mL 3 WEEKS 5 - 50 4 WEEKS 5 - 426 5 WEEKS 18 - 7,340 6 WEEKS 1,080 - 56,500 7-8 WEEKS 7,650 - 229,000 9-12 WEEKS 25,700 - 288,000 13-16 WEEKS 13,300 - 254,000 17-24 WEEKS 4,060 - 165,400 25-40 WEEKS 3,640 - 117,000 MALES AND NON- FEMALES - <5 MIU/mL This test has been FDA approved for use in only. Elevated levels are not necessarily diagnostic for trophoblastic or nontrophoblastic neoplasms. Performed By: #### 2 0415-6 #### [facility] ([id number]) [address], [address] [place] [address] CBC AND AUTO DIFFon 07-30-19 24 ABSOLUTE BASOPHIL 0.0 X10E9/L Normal 0.0-0.[address] [facility] Comment on above: Performed By: #### C NIKA JAEGER, #### [facility] ([id number]) [address] [place] [address], [place] [address] ABSOLUTE NEUTROPHIL 6.4 X10E9/L Normal 1.5-6.6 [facility] Comment on above: Performed By: #### Manish JAEGER CMP, #### [facility] ([id number]) [address] [place] [address] 27213 Basophils/100 WBC (Bld) 0.5 % Normal [facility] Comment on above: Performed By: #### C NIKA JAEGER, #### [facility] ([id number]) [address] [place] [address] 88142 Eosinophils (Bld) [#/Vol] 0.0 10*3/uL Normal 0.0-0.4 [facility] Comment on above: Performed By: #### C MIL [facility], #### [facility] ([id number]) [address] [place] [address] 32474 Eosinophils/100 WBC (Bld) 0.2 % Normal [facility] Comment on above: Performed By: #### Manish JAEGER [facility], #### [facility] ([id number]) [address] [place] [address] 54982 Erythrocyte distribution width (RBC) [Ratio] 14.2 % Normal 11.5-15.0 [facility] Comment on above: Performed By: #### Manish JAEGER [facility], #### [facility] ([id number]) [address] [place] [address] 67839 Hematocrit (Bld) [Volume fraction] 43.4 % Normal 35-47 [facility] Comment on above: Performed By: #### C MIL [facility], #### [facility] ([id number]) [address] [place] [address] 33803 Hemoglobin (Bld) [Mass/Vol] 14.9 g/dL Normal 11.7-15.5 [facility] Comment on above: Performed By: #### Manish JAEGER CMP, #### [facility] ([id number]) [address] [place] [address], [place] [address] Lymphocytes (Bld) [#/Vol] 1.4 10*3/uL Normal 1.0-3.5 [facility] Comment on above: Performed By: #### Manish JAEGER CMP, #### [facility] ([id number]) [address] [place] [address] 44266 Lymphocytes/100 WBC (Bld) 16.3 % Normal [facility] Comment on above: Performed By: #### Manish JAEGER CMP, #### [facility] ([id number]) [address] [place] [address] 20029 MCH (RBC) [Entitic mass] 30.9 pg Normal 27-34 [facility] Comment on above: Performed By: #### Manish JAEGER CMP, #### [facility] ([id number]) [address] [place] [address] 42476 MCHC (RBC) [Mass/Vol] 34.4 g/dL Normal 32-36 [facility] Comment on above: Performed By: #### Manish JAEGER [facility], #### [facility] ([id number]) [address] [place] [id number] MCV (RBC) [Entitic vol] 90 fL Normal 80-100 P [facility] Comment on above: Performed By: #### Manish JAEGER CMP, #### [facility] ([id number]) [address] [place] [id number] Monocytes (Bld) [#/Vol] 0.7 10*3/uL Normal 0-0.9 [facility] Comment on above: Performed By: #### Manish JAEGER CMP, #### [facility] ([id number]) [address] [place] [address] [id number] Monocytes/100 WBC (Bld) 7.8 % Normal P [facility] Comment on above: Performed By: #### C BCA, CMP, #### [facility] ([id number]) [address] [place] [address] 26682 Neutrophils/100 WBC (Bld) 75.2 % Normal [facility] Comment on above: Performed By: #### C BCA, CMP, #### [facility] ([id number]) [address] [place] [address] 98059 Platelet mean volume (Bld) [Entitic vol] 8.5 fL Normal 7-12 [facility] Comment on above: Performed By: #### C BCA, CMP, #### [facility] ([id number]) [address] [place] [address] 51743 Platelets (Bld) [#/Vol] 188 10*3/uL Normal 150-450 [facility] Comment on above: Performed By: #### C BCA, CMP, #### [facility] ([id number]) [address] [place] [address] 25528 RBC COUNT 4.83 X10E12/L Normal 3.80-5.20 [facility] Comment on above: Performed By: #### C BCA, CMP, #### [facility] ([id number]) [address] [place] [address] 06564 WBC (Bld) [#/Vol] 8.5 10*3/uL Normal 4.0-11.[address] [facility] Comment on above: Performed By: #### C BCA, CMP, #### [facility] ([id number]) [address] [place] [address] 85855 COMPREHENSIVE METABOLIC PANE Thomas 07-30-2023 Albumin [Mass/Vol] 4.7 g/dL Normal 3.2-5.[address] [facility] Comment on above: Performed By: #### C BCA, CMP, #### [facility] ([id number]) [address] [place] [address] 04192 ALP [Catalytic activity/Vol] 57 U/L Normal 39-130 [facility] Comment on above: Performed By: #### C BCA, CMP, #### [facility] ([id number]) [address] [place] [address] 51798 ALT [Catalytic activity/Vol] 12 U/L Normal 0-31 [facility] Comment on above: Performed By: #### C BCA, CMP, #### [facility] ([id number]) [address] [place] [address] 47316 Anion gap [Moles/Vol] 6 mmol/L Normal 5-15 [facility] Comment on above: Performed By: #### C BCA, CMP, #### [facility] ([id number]) [address] [place] [address] 15762 AST [Catalytic activity/Vol] 18 U/L Normal 0-41 [facility] Comment on above: Performed By: #### C BCA, CMP, #### [facility] ([id number]) [address] [place] [address] 84535 Bilirubin [Mass/Vol] 0.8 mg/dL Normal 0.3-1.2 [facility] Comment on above: Performed By: #### C BCA, CMP, #### [facility] ([id number]) [address] [place] [address] 10994 Calcium [Mass/Vol] 9.4 mg/dL Normal 8.5-10.[address] [facility] Comment on above: Performed By: #### C BCA, CMP, #### [facility] ([id number]) [address] [place] [address], [place] [address] Chloride [Moles/Vol] 107 mmol/L Normal 98-109 [facility] Comment on above: Performed By: #### C NIKA JAEGER, #### [facility] ([id number]) [address] [place] [address] 24416 CO2 [Moles/Vol] 23 mmol/L Normal 22-32 [facility] Comment on above: Performed By: #### C NIKA JAEGER, #### [facility] ([id number]) [address] [place] [address] 09621 Creatinine [Mass/Vol] 0.63 mg/dL Normal 0.40-1.00 [facility] Comment on above: Result Comment: METH OD TRACEABLE TO IDMS STANDARD Performed By: #### C NIKA JAEGER, #### [facility] ([id number]) [address] [place] [address] 58425 eGFR (CKD-EPI) NON-RACE DEPENDENT >90 Normal >59 [facility] Comment on above: Result Comment: Reported eGFR is based on the CKD-EPI 2020 equation that does not use a race coefficient. Performed By: #### C NIKA JAEGER, #### [facility] ([id number]) [address] [place] [address] 00150 Glucose [Mass/Vol] 92 mg/dL Normal 65-[address] [facility] Comment on above: Performed By: #### C NIKA JAEGER, #### [facility] ([id number]) [address] [place] [address] 76142 Potassium [Moles/Vol] 3.5 mmol/L Normal 3.5-5.0 [facility] Comment on above: Performed By: #### C NIKA JAEGER, #### [facility] ([id number]) [address] [place] [address] 82203 Protein [Mass/Vol] 7.8 g/dL Normal 6.0-8.[address] [facility] Comment on above: Performed By: #### C NIKA JAEGER, #### [facility] ([id number]) [address] [place] [address] 72775 Sodium [Moles/Vol] 136 mmol/L Normal 134-[address] [facility] Comment on above: Performed By: #### C MIL CMP, #### [facility] ([id number]) [address] [place] [address] 61246 Urea nitrogen [Mass/Vol] 12 mg/dL Normal 5-23 [facility] Comment on above: Performed By: #### C NIKA JAEGER, #### [facility] ([id number]) [address] [place] [address] 14220 HCG.beta subunit IA 3rd IS Q non 07-30-2023 [place] [address] m[IU]/mL Normal P [facility] Comment on above: Result Comment: NEW REFERENCE RANGE WEEKS (SINCE LMP) MIU/mL 3 WEEKS 5 - 50 4 WEEKS 5 - 426 5 WEEKS 18 - 7,340 6 WEEKS 1,080 - 56,500 7-8 WEEKS 7,650 - 229,000 9-12 WEEKS 25,700 - 288,000 13-16 WEEKS 13,300 - 254,000 17-24 WEEKS 4,060 - 165,400 25-40 WEEKS 3,640 - 117,000 MALES AND NON- FEMALES - <5 MIU/mL This test has been FDA approved for use in only. Elevated levels are not necessarily diagnostic for trophoblastic or nontrophoblastic neoplasms. Performed By: #### C BCA, CMP, #### [facility] ([id number]) [address] [place] [address] [place] [address] US PREG LESS THAN 14 WKS WIT H TRANSVAGINALon 07-30-2023 US PREG LESS THAN 14 WKS WITH TRANSVAGINAL US PREG LESS THAN 14 WKS WITH TRANSVAGINAL Indication: patient with vaginal bleeding. Pelvic cramping. TECHNIQUE: Transabdominal real-time grayscale and color-flow imaging was first performed followed by transvaginal imaging for better visualization of endometrial contents and adnexa. No prior comparison. FINDINGS: Endometrium appears thickened and heterogeneous with no definite internal color flow likely some blood. The right ovary measures 1.19 x 1.16 x 3.4 cm. The left ovary measures 4.4 cm x 1.6 cm x 2.6 cm. Uterus measures 9.9 cm x 5.3 cm x 6.2 cm. No intrauterine or ectopic gestation demonstrated. No intrauterine gestation demonstrated therefore there is no gestational sac, amniotic fluid, placenta, yolk sac, subchorionic hemorrhage or crown-rump length. IMPRESSION: 1. Heterogeneous thickened endometrium likely containing some blood. No abnormal color flow to suggest retained products of conception. 2. No intrauterine or ectopic gestation demonstrated. Follow-up beta hCG levels recommended. Finalized by Izzy Rodrigues MD on 07/30/2023 2:51 PM Normal [facility] US ABDOMEN LIMITEDon 024 US ABDOMEN LIMITED EXAMINATION: LIMITED ABDOMINAL ULTRASOUND 05/29/2023 9:27 am COMPARISON: None. HISTORY: ORDERING SYSTEM PROVIDED HISTORY: Abdominal mass, right lower quadrant TECHNOLOGIST PROVIDED HISTORY: This procedure can be scheduled via [employer]. Access your [employer] account by visiting [employer]. RUQ lump with straining or sitting up. FINDINGS: Direct scanning was performed in the area of interest in the right upper quadrant indicated by the patient. The patient was scanned supine, sitting, and with Valsalva maneuver. By ultrasound no discrete mass, fluid collection or definite hernia is identified. Consider CT if additional imaging is warranted clinically. IMPRESSION: Unremarkable exam Interpreted by: Zay Boyce MD Signed by: Zay Boyce MD 05/29/23 Final result Normal [facility] CBC WITH DIFFon 02-24-2023 ABS BASOPHIL 0.04 x10^3ul Normal (0.00 - 0.16) [facility] Comment on above: Order Comment: FACIL ITY: [facility] [id number] Performed By: #### C BC/D, CHEM-C, TSHT34, B12+, MG #### [place] [facility] [address] [place], [address] ABS EOSINOPHIL 0.08 x10^3ul Normal (0.00 - 0.40) [facility] Comment on above: Order Comment: FACIL ITY: [facility] [id number] Performed By: #### C BC/D, CHEM-C, TSHT34, B12+, MG #### [facility] [address] [facility], [address] ABS IMMATURE GRANS 0.01 x10^3ul Normal (0.00 - 0.11) [facility] Comment on above: Order Comment: FACIL ITY: [facility] [id number] Performed By: #### C BC/D, CHEM-C, TSHT34, B12+, MG #### [facility] [address] [facility], [address] ABS LYMPHOCYTE 2.28 x10^3ul Normal (0.96 - 5.40) [facility] Comment on above: Order Comment: FACIL ITY: [facility] [id number] Performed By: #### C BC/D, CHEM-C, TSHT34, B12+, MG #### [facility] [address] [facility], [address] ABS MONOCYTE 0.70 x10^3ul Normal (0.10 - 1.00) [facility] Comment on above: Order Comment: FACIL ITY: [facility] [id number] Performed By: #### C BC/D, CHEM-C, TSHT34, B12+, MG #### [place] [facility] [address] [place], [address] ABS NEUTROPHIL 3.91 x10^3ul Normal (1.50 - 7.00) [facility] Comment on above: Order Comment: FACIL ITY: [facility] [id number] Performed By: #### C BC/D, CHEM-C, TSHT34, B12+, MG #### [place] [facility] [address] [place], [address] Basophils/100 WBC (Bld) 0.6 % Normal () [facility] Comment on above: Order Comment: FACIL ITY: [facility] [id number] Performed By: #### C BC/D, CHEM-C, TSHT34, B12+, MG #### [facility] [address] [place], [address] Eosinophils/100 WBC (Bld) 1.1 % Normal () [facility] Comment on above: Order Comment: FACIL ITY: [facility] [id number] Performed By: #### C BC/D, CHEM-C, TSHT34, B12+, MG #### [facility] [address] [place], [address] Hematocrit (Bld) [Volume fraction] 46.1 % Normal (37.0 - 47.0) [facility] Comment on above: Order Comment: FACIL ITY: [facility] [id number] Performed By: #### C BC/D, CHEM-C, TSHT34, B12+, MG #### [facility] [address] [place], [address] Hemoglobin (Bld) [Mass/Vol] 15.3 g/dL Normal (12.0 - 16.0) [facility] Comment on above: Order Comment: FACIL ITY: [facility] [id number] Performed By: #### C BC/D, CHEM-C, TSHT34, B12+, MG #### [place] [facility] [address] [place], [address] IMMATURE GRANS (IG) 0.1 % Normal () [facility] Comment on above: Order Comment: [facility] [id number] Performed By: #### C BC/D, CHEM-C, TSHT34, B12+, MG #### [facility] [address] [place], [address] LYMPS 32.5 % Normal () [facility] Comment on above: Order Comment: [facility] [id number] Performed By: #### C BC/D, CHEM-C, TSHT34, B12+, MG #### [place] [facility] [address] [place], [address] MCH (RBC) [Entitic mass] 30.5 pg Normal (27 .0 - 33.0) [facility] Comment on above: Order Comment: [facility] [id number] Performed By: #### C BC/D, CHEM-C, TSHT34, B12+, MG #### [place] [facility] [address] [place], [address] MCHC (RBC) [Mass/Vol] 33.2 g/dL Normal (30.0 - 37.0) [facility] Comment on above: Order Comment: [facility] [id number] Performed By: #### C BC/D, CHEM-C, TSHT34, B12+, MG #### [place] [facility] [address] [place], [address] MCV (RBC) [Entitic vol] 92.0 fL Normal (81. 0 - 99.0) [facility] Comment on above: Order Comment: [facility]IL [facility] [id number] Performed By: #### C BC/D, CHEM-C, TSHT34, B12+, MG #### [facility] [address] [place], [address] MONOS 10.0 % Normal () [facility] Comment on above: Order Comment: FACIL ITY: [facility] [id number] Performed By: #### C BC/D, CHEM-C, TSHT34, B12+, MG #### [facility] [address] [place], [address] PLT 201 x10^3ul Normal (130 - 400) [facility] Comment on above: Order Comment: FACIL ITY: [facility] [id number] Performed By: #### C BC/D, CHEM-C, TSHT34, B12+, MG #### [place] [facility] [address] [place], [address] RBC 5.01 x10^6ul Normal (4.20 - 5.40) [facility] Comment on above: Order Comment: FACIL ITY: [facility] [id number] Performed By: #### C BC/D, CHEM-C, TSHT34, B12+, MG #### [facility] [address] [place], [address] RDW-SD 46.7 fl Normal (37.0 - 49.0) [place] [facility] Comment on above: Order Comment: FACIL ITY: [facility] [id number] Performed By: #### C BC/D, CHEM-C, TSHT34, B12+, MG #### [facility] [address] [place], [address] SEGS 55.7 % Normal () [facility] Comment on above: Order Comment: FACIL ITY: [facility] [id number] Performed By: #### C BC/D, CHEM-C, TSHT34, B12+, MG #### [facility] [address] [place], [address] WBC 7.02 x10^3ul Normal (3.80 - 10.60) [place] [facility] Comment on above: Order Comment: FACIL ITY: [facility] [id number] Performed By: #### C BC/D, CHEM-C, TSHT34, B12+, MG #### [facility] [address] [place], [address] COMP METABOLIC PANEL W/GFRon 02-24-2023 Albumin [Mass/Vol] 4.8 g/dL Normal (3.5 - 5.0) [facility] Comment on above: Performed By: #### C BC/D, CHEM-C, TSHT34, B12+, MG #### [facility] [address] [place], [address] ALK PHOS 63 U/L Normal (38 - 126) [facility] Comment on above: Performed By: #### C BC/D, CHEM-C, TSHT34, B12+, MG #### [facility] [address] [place], [address] ALT [Catalytic activity/Vol] 18 U/L Normal (1 - 35) [facility] Comment on above: Performed By: #### C BC/D, CHEM-C, TSHT34, B12+, MG #### [facility] [address] [place], [address] AST [Catalytic activity/Vol] 22 U/L Normal (15 - 46) [facility] Comment on above: Performed By: #### C BC/D, CHEM-C, TSHT34, B12+, MG #### [facility] [address] [place], [address] Bilirubin [Mass/Vol] 1.0 mg/dL Normal (0.2 - 1.3) [facility] Comment on above: Performed By: #### C BC/D, CHEM-C, TSHT34, B12+, MG #### [facility] [address] [place], [address] Calcium [Mass/Vol] 9.6 mg/dL Normal (8.6 - 10.6) [facility] Comment on above: Performed By: #### C BC/D, CHEM-C, TSHT34, B12+, MG #### [place] [facility] [address] [place], [address] Chloride [Moles/Vol] 105 mmol/L Normal (98 - 107) [facility] Comment on above: Performed By: #### C BC/D, CHEM-C, TSHT34, B12+, MG #### [place] [facility] [address] [place], [address] CO2 [Moles/Vol] 24 mmol/L Normal (22 - 30) [facility] Comment on above: Performed By: #### C BC/D, CHEM-C, TSHT34, B12+, MG #### [place] [facility] [address] [place], [address] Creatinine [Mass/Vol] 0.67 mg/dL Normal (0.52 - 1.04) [facility] Comment on above: Performed By: #### C BC/D, CHEM-C, TSHT34, B12+, MG #### [place] [facility] [address] [place], [address] GFR- AMER 132.0 ML/M1.7 Normal (60.0 - 140.1) [facility] Comment on above: Performed By: #### C BC/D, CHEM-C, TSHT34, B12+, MG #### [place] [facility] [address] [place], [address] GFR-NON AFRIC-AMER 109.1 ML/M1.7 Normal (60.0 - 115.8) [facility] Comment on above: Performed By: #### C BC/D, CHEM-C, TSHT34, B12+, MG #### [place] [facility] [address] [place], [address] Glucose [Mass/Vol] 76 mg/dL Normal (74 - 106) [facility] Comment on above: Performed By: #### C BC/D, CHEM-C, TSHT34, B12+, MG #### [facility] [address] [place], [address] Potassium [Moles/Vol] 4.0 mmol/L Normal (3.5 - 5.1) [facility] Comment on above: Performed By: #### C BC/D, CHEM-C, TSHT34, B12+, MG #### [facility] [address] [place], [address] Protein [Mass/Vol] 7.5 g/dL Normal (6.3 - 8.2) [facility] Comment on above: Performed By: #### C BC/D, CHEM-C, TSHT34, B12+, MG #### [facility] [address] [place], [address] Sodium [Moles/Vol] 143 mmol/L Normal (137 - 145) [facility] Comment on above: Performed By: #### C BC/D, CHEM-C, TSHT34, B12+, MG #### [facility] [address] [place], [address] Urea nitrogen [Mass/Vol] 12 mg/dL Normal (7 - 17) [facility] Comment on above: Performed By: #### C BC/D, CHEM-C, TSHT34, B12+, MG #### [facility] [address] [place], [address] MAGNESIUMon 02-24-2023 Magnesium [Mass/Vol] 1.8 mg/dL Normal (1.6 - 2.3) [facility] Comment on above: Performed By: #### C BC/D, CHEM-C, TSHT34, B12+, MG #### [facility] [address] [place], [address] T3 FREE, T4 FREE AND TSHon 1 Free T3 [Mass/Vol] 5.32 pg/mL Normal (2.32 - 6.09) [facility] Comment on above: Performed By: #### C BC/D, CHEM-C, TSHT34, B12+, MG #### [place] [facility] [address] [place], [address] Free T4 [Mass/Vol] 1.45 ng/dL Normal (0.78 - 2.35) [facility] Comment on above: Performed By: #### C BC/D, CHEM-C, TSHT34, B12+, MG #### [place] [facility] [address] [place], [address] TSH Qn 1.43 m[IU]/L Normal (0.470 - 4.680) [facility] Comment on above: Performed By: #### C BC/D, CHEM-C, TSHT34, B12+, MG #### [facility] [address] [place], [address] VIT B12 AND FOLATEon 023 Cobalamin (Vitamin B12) [Mass/Vol] 653 pg/mL Normal (239 - 931) [facility] Comment on above: Performed By: #### C BC/D, CHEM-C, TSHT34, B12+, MG #### [place] [facility] [address] [place], [address] FOLIC ACID >20.0 High (2.8 - 20.0) [facility] Comment on above: Performed By: #### C BC/D, CHEM-C, TSHT34, B12+, MG #### [place] [facility] [address] [place], [address] HCG, ,Urineon 11-14 Beta HCG ( test) Ql (U) Negative Normal NEG [facility] Comment on above: Performed By: #### U HCG #### [facility] [address] [place] [address] Inside Tester: Natasha Bragg MD Surgical Pathologyon 023 Surgical Pathology (NOTE) Path Number: [id number] -- Diagnosis -- TERMINAL ILEUM, BIOPSY: -UNREMARKABLE SMALL INTESTINAL MUCOSA WITH NO SIGNIFICANT INFLAMMATION. Natasha Bragg M.D Electronically Signed Out 11/18/2022 Clinical Information Pre-Op Diagnosis: HEMORRHAGE OF RECTUM AND ANUS Operative Findings: TERMINAL ILEUM BIOPSIES Operation Performed: COLONOSCOPY BIOPSY/STOMA cd Source of Specimen A: TERMINAL ILEUM BIOPSY Gross Description JORDAN COLLADO TERMINAL ILEUM BIOPSIES Received in formalin is one soft montano fragment, 0.3 x 0.2 x 0.1 cm. Entirely 1cs. jj cd Microscopic Description Microscopic examination performed. Processing Lab: [address] [id number] Interpretation Performed at [address] [address] SURGICAL PATHOLOGY CONSULTATION Patient Name: MEGAN COLLADO [facility] Rec: [id number] [facility] ANATOMIC PATHOLOGY [address] [place] [id number] Normal [facility] Comment on above: Performed By: #### P PPVS #### [address] [address] Inside Tester: Alex Deleon MD Calprotectin, Fecalon 2022 Calprotectin, Fecal 7 ug/g Normal <=49 [facility] Comment on above: Result Comment: (NOT E) REFERENCE INTERVAL: Calprotectin, Fecal by Immunoassay Less than 50 ug/g.........Normal 50-120 ug/g...............Borderline elevated, test should be re-evaluated in 4-6 weeks. 121 ug/g or greater.......Elevated Performed By: [employer] [address] [place] [address] Monitor Tech: Louie Kidd MD, PhD Performed By: #### A CALPF #### [employer] [address] [place] [address] Inside Tester: Jesu Farley MD Celiac Disease Panelon 10-24 Gliadin Deam Pep IgA 0.5 U/mL Normal <7.0 [facility] Comment on above: Result Comment: CELIAC INTERPRETATION <7.0 Negative 7.0-10.0 Equivocal >10.0 Positive units: U/mL Performed By: #### C ELP #### [address] [address] Inside Tester: Alex Deleon MD Gliadin Deam Pep IgG <0.4 Normal <7.0 [facility] Comment on above: Result Comment: CELIAC INTERPRETATION <7.0 Negative 7.0-10.0 Equivocal >10.0 Positive units: U/mL Performed By: #### C ELP #### [address] [address] Inside Tester: Alex Deleon MD Tiss Transglutam IgA <0.1 Normal <7.0 [facility] Comment on above: Result Comment: CELIAC INTERPRETATION <7.0 Negative 7.0-10.0 Equivocal >10.0 Positive units: U/mL Performed By: #### C ELP #### [address] [address] Inside Tester: Alex Deleon MD IgA [Mass/Vol] 132 mg/dL Normal 70-400 [facility] Comment on above: Performed By: #### C ELP #### [address] [address] Inside Tester: Alex Deleon MD AEROBIC CULTURE AND SENSITIV ITYon 10-07-2022 AMPICILLIN N/A Normal () [facility] Comment on above: Order Comment: FACIL ITY: [facility] [id number] Performed By: #### C -M75 #### [facility] [address] [facility], [address] CEFOXITIN SCREEN Negative Normal () [facility] Comment on above: Order Comment: FACIL ITY: [facility] [id number] Performed By: #### C -M75 #### [facility] [address] [place], [address] CIPROFLOXACIN S Normal () [facility] Comment on above: Order Comment: FACIL ITY: [facility] [id number] Performed By: #### C -M75 #### [facility] [address] [place], [address] CLINDAMYCIN S Normal () [facility] Comment on above: Order Comment: FACIL ITY: [facility] [id number] Performed By: #### C -M75 #### [facility] [address] [place], [address] CULTURE, AEROBIC SENS Normal (SEE - REPOR) [facility] Comment on above: Order Comment: [facility] [id number] Performed By: #### C -M75 #### [facility] [address] [place], [address] DAPTOMYCIN S Normal () [facility] Comment on above: Order Comment: [facility]IL ITY[facility] [id number] Performed By: #### C -M75 #### [facility] [address] [place], [address] DOXYCYCLINE I Normal () [facility] Comment on above: Order Comment: FACIL ITY: [facility] [id number] Performed By: #### C -M75 #### [facility] [address] [place], [address] ERYTHROMYCIN R High () [facility] Comment on above: Order Comment: FACIL ITY: [facility] [id number] Performed By: #### C -M75 #### [facility] [address] [place], [address] GENTAMICIN S Normal () [facility] Comment on above: Order Comment: FACIL ITY: [facility] [id number] Performed By: #### C -M75 #### [facility] [address] [facility], [address] GENTAMICIN HIGH LEVEL N/A Normal () [facility] Comment on above: Order Comment: FACIL ITY: [facility] [id number] Performed By: #### C -M75 #### [facility] [address] [facility], [address] INDUCIBLE CLINDAMYCIN RESISTANCE Negative Normal () [facility] Comment on above: Order Comment: FACIL ITY: [facility] [id number] Performed By: #### C -M75 #### [facility] [address] [facility], [address] LEVOFLOXACIN S Normal () [facility] Comment on above: Order Comment: FACIL ITY: [facility] [id number] Performed By: #### C -M75 #### [facility] [address] [facility], [address] LINEZOLID S Normal () [facility] Comment on above: Order Comment: FACIL ITY: [facility] [id number] Performed By: #### C -M75 #### [facility] [address] [facility], [address] MOXIFLOXACIN S Normal () [facility] Comment on above: Order Comment: FACIL ITY: [facility] [id number] Performed By: #### C -M75 #### [facility] [address] [facility], [address] NITROFURANTOIN S Normal () [facility] Comment on above: Order Comment: FACIL ITY: [facility] [id number] Performed By: #### C -M75 #### [facility] [address] [facility], [address] OXACILLIN S Normal () [facility] Comment on above: Order Comment: FACIL ITY: [facility] [id number] Performed By: #### C -M75 #### [facility] [address] [facility], [address] REPORT STATUS FINAL Normal () [facility] Comment on above: Order Comment: FACIL ITY: [facility] [id number] Result Comment: SOUR CE: NO SOURCE INDICATED GROWTH: FEW ISOLATE: STAPHYLOCOCCUS EPIDERMIDIS SENSITIVITY INTERPRETATION S = SUSCEPTIBLE R = RESISTANT I = INTERMEDIATE N/A = NOT APPLICABLE Performed By: #### C -M75 #### [facility] [address] [facility], [address] RIFAMPICIN S Normal () [facility] Comment on above: Order Comment: [facility] [id number] Performed By: #### C -M75 #### [facility] [address] [facility], [address] STREPTOMYCIN HIGH LEVEL N/A Normal () [facility] Comment on above: Order Comment: [facility] [id number] Performed By: #### C -M75 #### [facility] [address] [facility], [address] TETRACYCLINE R High () [facility] Comment on above: Order Comment: [facility] [id number] Performed By: #### C -M75 #### [facility] [address] [facility], [address] TIGECYCLINE S Normal () [facility] Comment on above: Order Comment: [facility] [id number] Performed By: #### C -M75 #### [facility] [address] [facility], [address] TRIMETH/SULFA S Normal () [facility] Comment on above: Order Comment: FACIL ITY: [facility] [id number] Performed By: #### C -M75 #### [facility] [address] [facility], [address] VANCOMYCIN S Normal () [facility] Comment on above: Order Comment: FACIL ITY: [facility] [id number] Performed By: #### C -M75 #### [facility] [address] [facility], [address] BNPon 08-07-2022 Natriuretic peptide B (Bld) [Mass/Vol] 23.0 pg/mL Normal <=450.0 [facility] Comment on above: Performed By: #### H STROPN, BNP, BMP #### [facility] [address] [place] [address] Dr. Anette Siddiqui CBC AUTO DIFFon 08-07-2022 BASO # 0.0 103/ul Normal 0.0-0.1 [facility] Comment on above: Performed By: #### C BC #### [facility] [address] [place] [address] Dr. Anette Siddiqui Basophils/100 WBC (Bld) 0.4 % Normal 0.2-2.0 [facility] Comment on above: Performed By: #### C BC #### [facility] [address] [place] [address] Dr. Anette Siddiqui EO # 0.1 103/ul Normal 0.0-0.7 [facility] Comment on above: Performed By: #### C BC #### [facility] [address] [place] [address] Dr. Anette Siddiqui Eosinophils/100 WBC (Bld) 1.0 % Normal 0.9-7.0 [facility] Comment on above: Performed By: #### C BC #### [facility] [address] [place] [address] Dr. Anette Siddiqui Erythrocyte distribution width (RBC) [Ratio] 13.3 % Normal 11.0-15.0 [facility] Comment on above: Performed By: #### C BC #### [facility] [address] [place] [address] Dr. Anette Siddiqui Hematocrit (Bld) [Volume fraction] 42.2 % Normal 36.0-48.0 [facility] Comment on above: Performed By: #### C BC #### [facility] [address] [place] [address] Dr. Anette Siddiqui Hemoglobin (Bld) [Mass/Vol] 14.2 g/dL Normal 12.0-16.0 [facility] Comment on above: Performed By: #### C BC #### [facility] [address] [place] [address] Dr. Anette Siddiqui IG # 0.02 10e3/ul Normal 0.00-0.03 [facility] Comment on above: Performed By: #### C BC #### [facility] [address] [place] [address] Dr. Anette Siddiqui IG % 0.3 % Normal 0.0-0.5 [facility] Comment on above: Performed By: #### C BC #### [facility] [address] [place] [address] Dr. Anette Siddiqui LYMPH # 1.9 103/ul Normal 1.2-3.8 [facility] Comment on above: Performed By: #### C BC #### [facility] [address] [place] [address] Dr. Anette Siddiqui Lymphocytes/100 WBC (Bld) 24.8 % Normal 20.5-60.0 [facility] Comment on above: Performed By: #### C BC #### [facility] [address] [place] [address] Dr. Anette Siddiqui MANUAL DIFF REQ NO Normal [facility] Comment on above: Performed By: #### C BC #### [facility] [address] [place] [address] Dr. Anette Siddiqui MCH (RBC) [Entitic mass] 30.5 pg Normal 26.7-34.0 [facility] Comment on above: Performed By: #### C BC #### [facility] [address] [address] [address] Anette Siddiqui MCHC (RBC) [Mass/Vol] 33.6 g/dL Normal 29.9-35.2 [facility] Comment on above: Performed By: #### C BC #### [facility] [address] [address] [address] Anette Siddiqui MCV (RBC) [Entitic vol] 90.8 fL Normal 81.0-99.0 [facility] Comment on above: Performed By: #### C BC #### [facility] [address] [address] [address] Anette Siddiqui MONO # 0.6 103/ul Normal 0.3-0.8 [facility] Comment on above: Performed By: #### C BC #### [facility] [address] [place] [address] Dr. Anette Siddiqui Monocytes/100 WBC (Bld) 7.7 % Normal 1.7-12.0 [facility] Comment on above: Performed By: #### C BC #### [facility] [address] [place] [address] Dr. Anette Siddiqui NEUT # 5.0 103/ul Normal 1.4-6.5 [facility] Comment on above: Performed By: #### C BC #### [facility] [address] [place] [address] Dr. Anette Siddiqui Neutrophils/100 WBC (Bld) 65.8 % Normal 43.0-75.0 [facility] Comment on above: Performed By: #### C BC #### [facility] [address] [place] [address] Dr. Anette Siddiqui Platelet mean volume (Bld) [Entitic vol] 10.3 fL Normal 9.5-13.5 [facility] Comment on above: Performed By: #### C BC #### [facility] [address] [place] [address] Dr. Anette Siddiqui PLT 186 103/ul Normal 150-450 [facility] Comment on above: Performed By: #### C BC #### [facility] [address] [address] [address] Anette Siddiqui RBC 4.65 106/ul Normal 4.20-5.40 [facility] Comment on above: Performed By: #### C BC #### [facility] [address] [address] [address] Anette Siddiqui WBC 7.6 103/ul Normal 4.0-11.0 [facility] Comment on above: Performed By: #### C BC #### [facility] [address] [address] [address] Anette Siddiqui PREG HCG QUALon 08-07-2022 , QUAL Negative Normal NEGATIVE [facility] Comment on above: Performed By: #### P TT, PT #### [facility] [address] [place] [address] Dr. Anette Siddiqui PROF CHEM 8 (BAS METB)on Anion gap [Moles/Vol] 14.8 mmol/L Normal [facility] Comment on above: Performed By: #### H STROPN, BNP, BMP #### [facility] [address] [address] [address] Anette Siddiqui Calcium [Mass/Vol] 8.8 mg/dL Normal 8.5-10.1 [facility] Comment on above: Performed By: #### H STROPN, BNP, BMP #### [facility] [address] [address] [address] Anette Siddiqui Chloride [Moles/Vol] 105 mmol/L Normal 98-107 [facility] Comment on above: Performed By: #### H STROPN, BNP, BMP #### [facility] [address] [address] [address] Anette Siddiqui CO2 [Moles/Vol] 24.0 mmol/L Normal 21.0-32.0 [facility] Comment on above: Performed By: #### H STROPN, BNP, BMP #### [facility] [address] [address] [address] Anette Siddiqui Creatinine [Mass/Vol] 0.71 mg/dL Normal 0.55-1.02 [facility] Comment on above: Performed By: #### H STROPN, BNP, BMP #### [facility] [address] [address] [address] Anette Siddiqui EGFR-AF POLISH >60 Normal >=60 [facility] Comment on above: Performed By: #### H STROPN, BNP, BMP #### [facility] [address] [address] [address] Anette Siddiqui EGFR-NON AF POLISH >60 Normal >=60 [facility] Comment on above: Performed By: #### H STROPN, BNP, BMP #### [facility] [address] [address] [address] Anette Siddiqui Glucose [Mass/Vol] 99 mg/dL Normal 74-106 [facility] Comment on above: Performed By: #### H STROPN, BNP, BMP #### [facility] [address] [place] [address] Dr. Anette Siddiqui Potassium [Moles/Vol] 3.8 mmol/L Normal 3.5-5.1 [facility] Comment on above: Performed By: #### H STROPN, BNP, BMP #### [facility] [address] [place] [address] Dr. Anette Siddiqui Sodium [Moles/Vol] 140 mmol/L Normal 136-145 [facility] Comment on above: Performed By: #### H STROPN, BNP, BMP #### [facility] [address] [place] [address] Dr. Anette Siddiqui Urea nitrogen [Mass/Vol] 15.0 mg/dL Normal 7.0-18.0 [facility] Comment on above: Performed By: #### H STROPN, BNP, BMP #### [facility] [address] [place] [address] Dr. Anette Siddiqui Urea nitrogen/Creatinine [Mass ratio] 21.1 mg/mg Normal [facility] Comment on above: Performed By: #### H STROPN, BNP, BMP #### [facility] [address] [place] [address] Dr. Anette Siddiqui TROPONIN, HIGH SENSITIVITYon 08-07-2022 HSTROP <4.0 Normal 4.0-51.3 [facility] Comment on above: Result Comment: CUT- OFF POINTS HAVE BEEN ESTABLISHED BASED ON THE FOURTH UNIVERSAL DEFINITIONS OF MYOCARDIAL INFARCTION. THE UPPER REFERENCE LIMIT (URL) OF TROPONIN, DEFINED THE 99TH PERCENTILE OF cTnI DISTRIBUTION IN A REFERENCE POPULATION, HAS BEEN CONFIRMED THE DECISION THRESHOLD FOR [place] DIAGNOSIS. Performed By: #### H STROPN, BNP, BMP #### [facility] [address] [place] [address] Dr. Anette Siddiqui XR CHEST 1 Von 08-07-2022 XR CHEST 1 V TITLE: XR CHEST 1 V COMPARISON: 2020 chest x-ray CLINICAL HISTORY: SHORTNESS OF BREATH TECHNIQUE: 1 view FINDINGS: The cardiac and mediastinal contours are unremarkable. There is no infiltrate, edema, pleural effusion, or pneumothorax. There is no skeletal abnormality IMPRESSION: NO ACUTE X-RAY FINDINGS Electronically authenticated by: HUGO OWENS Date: 2022-08-07 15:54 Normal [facility] CBC AUTO DIFFon 02-14-2022 BASO # 0.0 103/ul Normal 0.0-0.1 [facility] Comment on above: Performed By: #### C BC #### [facility] [address] [place] [address] Dr. Anette Siddiqui Basophils/100 WBC (Bld) 0.5 % Normal 0.2-2.0 [facility] Comment on above: Performed By: #### C BC #### [facility] [address] [place] [address] Dr. Anette Siddiqui EO # 0.1 103/ul Normal 0.0-0.7 [facility] Comment on above: Performed By: #### C BC #### [facility] [address] [place] [address] Dr. Anette Siddiqui Eosinophils/100 WBC (Bld) 1.0 % Normal 0.9-7.0 [facility] Comment on above: Performed By: #### C BC #### [facility] [address] [place] [address] Dr. Anette Siddiqui Erythrocyte distribution width (RBC) [Ratio] 12.9 % Normal 11.0-15.0 [facility] Comment on above: Performed By: #### C BC #### [facility] [address] [place] [address] Dr. Anette Siddiqui Hematocrit (Bld) [Volume fraction] 43.2 % Normal 36.0-48.0 [facility] Comment on above: Performed By: #### C BC #### [facility] [address] [place] [address] Dr. Anette Siddiqui Hemoglobin (Bld) [Mass/Vol] 14.4 g/dL Normal 12.0-16.0 [facility] Comment on above: Performed By: #### C BC #### [facility] [address] [place] [address] Dr. Anette Siddiqui IG # 0.01 10e3/ul Normal 0.00-0.03 [facility] Comment on above: Performed By: #### C BC #### [facility] [address] [place] [address] Dr. Anette Siddiqui IG % 0.2 % Normal 0.0-0.5 [facility] Comment on above: Performed By: #### C BC #### [facility] [address] [place] [address] Dr. Anette Siddiqui LYMPH # 1.7 103/ul Normal 1.2-3.8 [facility] Comment on above: Performed By: #### C BC #### [facility] [address] [place] [address] Dr. Anette Siddiqui Lymphocytes/100 WBC (Bld) 29.8 % Normal 20.5-60.0 [facility] Comment on above: Performed By: #### C BC #### [facility] [address] [place] [address] Dr. Anette Siddiqui MANUAL DIFF REQ NO Normal [facility] Comment on above: Performed By: #### C BC #### [facility] [address] [place] [address] Dr. Anette Siddiqui MCH (RBC) [Entitic mass] 30.4 pg Normal 26.7-34.0 [facility] Comment on above: Performed By: #### C BC #### [facility] [address] [address] [address] Anette Siddiqui MCHC (RBC) [Mass/Vol] 33.3 g/dL Normal 29.9-35.2 [facility] Comment on above: Performed By: #### C BC #### [facility] [address] [address] [address] Anette Siddiqui MCV (RBC) [Entitic vol] 91.1 fL Normal 81.0-99.0 [facility] Comment on above: Performed By: #### C BC #### [facility] [address] [place] [address] Dr. Anette Siddiqui MONO # 0.5 103/ul Normal 0.3-0.8 [facility] Comment on above: Performed By: #### C BC #### [facility] [address] [place] [address] Dr. Anette Siddiqui Monocytes/100 WBC (Bld) 9.1 % Normal 1.7-12.0 [facility] Comment on above: Performed By: #### C BC #### [facility] [address] [place] [address] Dr. Anette Siddiqui NEUT # 3.5 103/ul Normal 1.4-6.5 [facility] Comment on above: Performed By: #### C BC #### [facility] [address] [place] [address] Dr. Anette Siddiqui Neutrophils/100 WBC (Bld) 59.4 % Normal 43.0-75.0 [facility] Comment on above: Performed By: #### C BC #### [facility] [address] [address] [address] Anette Siddiqui Platelet mean volume (Bld) [Entitic vol] 10.1 fL Normal 9.5-13.5 [facility] Comment on above: Performed By: #### C BC #### [facility] [address] [address] [address] Anette Siddiqui PLT 198 103/ul Normal 150-450 [facility] Comment on above: Performed By: #### C BC #### [facility] [address] [place], [place] [address] Dr. Anette Siddiqui RBC 4.74 106/ul Normal 4.20-5.40 [facility] Comment on above: Performed By: #### C BC #### [facility] [address] [place], [place] [address] Dr. Anette Siddiqui WBC 5.8 103/ul Normal 4.0-11.0 [facility] Comment on above: Performed By: #### C BC #### [facility] [address] [place], [place] [address] ABD/PELVIS WO CONon 02-14 CT ABD/PELVIS WO CON EXAMINATION: CT ABD/PELVIS WO CON HISTORY: Lower abdominal pain and cramping ; bloody stool for one day COMPARISON: No relevant comparison available. TECHNIQUE: Axial, Coronal, and Sagittal images were obtained without and/or with IV contrast as indicated by examination type. Dose reduction techniques were achieved by using automated exposure control and/or adjustment of mA and/or kV according to patient size and/or use of iterative reconstruction technique. FINDINGS: LUNG BASES: No visible pulmonary or pleural disease. LIVER: No enlargement, atrophy, suspicious density, or significant focal lesion. BILIARY: No dilatation or calcification. PANCREAS: No lesion, fluid collection, or abnormal duct dilatation. SPLEEN: No enlargement or focal lesion. ADRENALS: No mass or enlargement. KIDNEYS: No mass, obstruction, or calcification. BOWEL/MESENTERY: No visible mass, obstruction, or bowel wall thickening. Normal appendix. AORTA/VASCULAR: No aneurysm or dissection. RETROPERITONEUM: No mass or adenopathy. LYMPH NODES: No adenopathy. URINARY BLADDER: No visible focal wall thickening, lesion, or calculus. PELVIC ORGANS: No visible mass. Pelvic organs appropriate for patient age. ABDOMINAL WALL: No mass or hernia. BONES: No bony lesion or fracture. OTHER: Negative. IMPRESSION: 1. No abnormal or suspicious findings to account for patient's symptoms. Electronically authenticated by: AGUSTIN SWANN Date: 2022-02-14 13:11 Normal [facility] URINE PROFILEon 2 Bilirubin Ql (U) Negative Normal NEGATIVE [facility] Comment on above: Performed By: #### P TT, PT #### [facility] [address] [place] [address] Dr. Anette Siddiqui Clarity (U) CLEAR Normal CLEAR [facility] Comment on above: Performed By: #### P TT, PT #### [facility] [address] [place] [address] Dr. Anette Siddiqui Color (U) LT. YELLOW Normal YELLOW [facility] Comment on above: Performed By: #### P TT, PT #### [facility] [address] [place] [address] Dr. Anette BOWMAN A micrscopic examination will be performed if indicated. Normal [facility] Comment on above: Performed By: #### P TT, PT #### [facility] [address] [place] [address] Dr. Anette Siddiqui Glucose Ql (U) Negative Normal NEGATIVE [facility] Comment on above: Performed By: #### P TT, PT #### [facility] [address] [place] [address] Dr. Anette Siddiqui Hemoglobin Ql (U) Negative Normal NEGATIVE [facility] Comment on above: Performed By: #### P TT, PT #### [facility] [address] [place] [address] Dr. Anette Siddiqui Ketones Ql (U) Negative Normal NEGATIVE [facility] Comment on above: Performed By: #### P TT, PT #### [facility] [address] [place] [address] Dr. Anette Siddiqui LEUKOCYTES Negative Normal NEGATIVE [facility] Comment on above: Performed By: #### P TT, PT #### [facility] [facility] [address] [place] [address] Dr. Anette Siddiqui Nitrite Ql (U) Negative Normal NEGATIVE [facility] Comment on above: Performed By: #### P TT, PT #### [facility] [address] [place] [address] Dr. Anette Siddiqui pH (U) 6.0 [pH] Normal 5-9 [facility] Comment on above: Performed By: #### P TT, PT #### [facility] [address] [address] [address] Anette Siddiqui SPEC GRAVITY 1.015 Normal 1.005-<=1.02 5 [facility] Comment on above: Performed By: #### P TT, PT #### [facility] [address] [address] [address] Anette Siddiqui UA PROTEIN Negative Normal NEGATIVE/ TRACE [facility] Comment on above: Performed By: #### P TT, PT #### [facility] [address] [address] [address] Anette Siddiqui UR MICRO IND NOT INDICATED Normal [facility] Comment on above: Performed By: #### P TT, PT #### [facility] [address] [place] [address] Dr. Anette Siddiqui Urobilinogen Qn (U) 0.2 {Shaniqua'U}/dL Normal 0.2 - 1. 0 [facility] Comment on above: Performed By: #### P TT, PT #### [facility] [address] [place] [address] Dr. Anette Siddiqui URon 02-14-2022 , QUAL Negative Normal NEGATIVE [facility] Comment on above: Performed By: #### P TT, PT #### [facility] [address] [place] [address] Dr. Anette Siddiqui PROF 14(COMP METB)on 022 Albumin [Mass/Vol] 4.2 g/dL Normal 3.4-5.0 [facility] Comment on above: Performed By: #### C MP #### [facility] [address] [place] [address] Dr. Anette Siddiqui Albumin/Globulin [Mass ratio] 1.4 {ratio} Normal [facility] Comment on above: Performed By: #### C MP #### [facility] [address] [place] [address] Dr. Anette Siddiqui ALP [Catalytic activity/Vol] 105 U/L Normal 46-116 [facility] Comment on above: Performed By: #### C MP #### [facility] [address] [address] [address] Aentte Siddiqui ALT [Catalytic activity/Vol] 31 U/L Normal 14-59 [facility] Comment on above: Performed By: #### C MP #### [facility] [address] [place] [address] Dr. Anette Siddiqui Anion gap [Moles/Vol] 11.9 mmol/L Normal [facility] Comment on above: Performed By: #### C MP #### [facility] [address] [address] [address] Aentte Siddiqui AST [Catalytic activity/Vol] 17 U/L Normal 15-37 [facility] Comment on above: Performed By: #### C MP #### [facility] [address] [address] [address] Anette Siddiqui Bilirubin [Mass/Vol] 0.6 mg/dL Normal 0.2-1.0 [facility] Comment on above: Performed By: #### C MP #### [facility] [address] [place] [address] Dr. Anette Siddiqui Calcium [Mass/Vol] 9.2 mg/dL Normal 8.5-10.1 [facility] Comment on above: Performed By: #### C MP #### [facility] [address] [place] [address] Dr. Antete Siddiqui Chloride [Moles/Vol] 105 mmol/L Normal 98-107 [facility] Comment on above: Performed By: #### C MP #### [facility] [address] [address] [address] Anette Siddiqui CO2 [Moles/Vol] 27.8 mmol/L Normal 21.0-32.0 [facility] Comment on above: Performed By: #### C MP #### [facility] [address] [place] [address] Dr. Anette Siddiqui Creatinine [Mass/Vol] 0.74 mg/dL Normal 0.55-1.02 [facility] Comment on above: Performed By: #### C MP #### [facility] [address] [address] [address] Anette Siddiqui EGFR-AF POLISH >60 Normal >=60 [facility] Comment on above: Performed By: #### C MP #### [facility] [address] [address] [address] Anette Siddiqui EGFR-NON AF POLISH >60 Normal >=60 [facility] Comment on above: Performed By: #### C MP #### [facility] [address] [address] [address] Anette Siddiqui Globulin (S) [Mass/Vol] 3.0 g/dL Normal [facility] Comment on above: Performed By: #### C MP #### [facility] [address] [address] [address] Anette Siddiqui Glucose [Mass/Vol] 79 mg/dL Normal 74-106 [facility] Comment on above: Performed By: #### C MP #### [facility] [address] [address] [address] Anette Siddiqui Potassium [Moles/Vol] 3.7 mmol/L Normal 3.5-5.1 [facility] Comment on above: Performed By: #### C MP #### [facility] [address] [address] [address] Anette Siddiqui Protein [Mass/Vol] 7.2 g/dL Normal 6.4-8.2 [facility] Comment on above: Performed By: #### C MP #### [facility] [address] [address] [address] Anette Siddiqui Sodium [Moles/Vol] 141 mmol/L Normal 136-145 [facility] Comment on above: Performed By: #### C MP #### [facility] [address] [address] [address] Anette Siddiqui Urea nitrogen [Mass/Vol] 13.0 mg/dL Normal 7.0-18.0 [facility] Comment on above: Performed By: #### C MP #### [facility] [address] [address] [address] Anette Siddiqui Urea nitrogen/Creatinine [Mass ratio] 17.6 mg/mg Normal [facility] Comment on above: Performed By: #### C MP #### [facility] [address] [address] [address] Anette Siddiqui PROTIMEon 02-14-2022 INR Coag (PPP) [Relative time] 1.01 {INR} Normal [facility] Comment on above: Performed By: #### P TT, PT #### [facility] [address] [place] [address] Dr. Anette Siddiqui INR GUIDELINES SEE BELOW Normal [facility] Comment on above: Result Comment: HERB RED INR: 2.0 - 3.0 CONDITIONS NOT LISTED BELOW 2.5 - 3.5 FOR PROSTHETIC HEART VALVE REPLACEMENT 2.5 - 3.5 RECURRENT THROMBOSIS Performed By: #### P TT, PT #### [facility] [address] [place] [address] Dr. Anette Siddiqui PT Coag (PPP) [Time] 10.9 s Normal 9.0-11.6 [facility] Comment on above: Performed By: #### P TT, PT #### [facility] [address] [place] [address] Dr. Anette Siddiqui PTTon 02-14-2022 aPTT Coag (Bld) [Time] 26.9 s Normal 22.3-36.2 [facility] Comment on above: Performed By: #### P TT, PT #### [facility] [address] [place] [address] Dr. Anette Siddiqui Vital Signs Date Time Vital Sign Value Performing Clinician Facility 11-25-2023 11:50-0400 Body temperature 98.5 [degF] MD Brian Elizabeth Work Phone: [facility] 11-25-2023 11:50-0400 Diastolic blood pressure 77 mm[Hg] MD Brian Elizabeth Work Phone: [facility] 11-25-2023 11:50-0400 Heart rate 104 /min MD Brian Elizabeth Work Phone: [facility] 11-25-2023 11:50-0400 SaO2% (BldA) [Mass fraction] 97 % MD Brian Elizabeth Work Phone: [facility] 11-25-2023 11:50-0400 Systolic blood pressure 108 mm[Hg] MD Brian Elizabeth Work Phone: [facility] 11-24-2023 20:13-0400 Respiratory rate 18 /min MD Brian Elizabeth Work Phone: [facility] 11-24-2023 14:55-0400 Body height 167.64 cm MD Brian Elizabeth Work Phone: [facility] 11-24-2023 09:00-0400 Body weight 60.32 kg MD Brian Elizabeth Work Phone: [facility] 07-23-2023 09:12-0500 Body height 167.6 cm Harris Montague MD Work Phone: [facility] 07-23-2023 09:12-0500 Body mass index (BMI) [Ratio] 23.25 kg/m2 Harris Montague MD Work Phone: [facility] 07-23-2023 09:12-0500 Body temperature 98.49 [degF] Harris Montague MD Work Phone: [facility] 07-23-2023 09:12-0500 Body weight 65.32 kg Harris Montague MD Work Phone: [facility] 07-23-2023 09:12-0500 Diastolic blood pressure 74 mm[Hg] Harris Montague MD Work Phone: [facility] 07-23-2023 09:12-0500 Heart rate 56 /min Harris Montague MD Work Phone: [facility] 07-23-2023 09:12-0500 SaO2% (BldA) [Mass fraction] 97 % Harris Montague MD Work Phone: [facility] 07-23-2023 09:12-0500 Systolic blood pressure 124 mm[Hg] Harris Montague MD Work Phone: [facility] Encounters Encounter Date Encounter Type Care Provider Facility Start: 02-19-2024 End: 02-19-2024 ambulatory SHADI Ignacio [facility] Start: 02-19-2024 End: 02-19-2024 ambulatory SHADI TAYLOR Not Available Start: 02-05-2024 End: 02-05-2024 ambulatory [facility] Start: 02-05-2024 End: 02-05-2024 ambulatory KASEY Crandall [facility] Start: 02-03-2024 ambulatory Brian Elizabeth Facility:[facility] Start: 11-23-2023 Non-patient / Non-visit MD Treasure Elizabeth Work Phone: [facility] Work Phone: Start: 11-22-2023 End: 11-25-2023 Evaluation and management of inpatient MD Brian Elizabeth Work Phone: [address] Work Phone: Start: 11-22-2023 End: 11-22-2023 Emergency department patient visit KASEY Crandall [facility] Start: 08-29-2023 End: 08-29-2023 ambulatory [facility]. [facility] Start: 08-22-2023 End: 08-22-2023 ambulatory [facility] R. [facility] Start: 08-14-2023 Telephone encounter Malia Hammond MA [facility] Start: 08-14-2023 End: 08-14-2023 ambulatory SHADI TAYLOR Not Available Start: 08-13-2023 End: 08-13-2023 ambulatory [facility] R[facility] Start: 08-06-2023 End: 08-06-2023 ambulatory [facility] Start: 07-30-2023 End: 07-31-2023 Emergency department patient visit HAROLDO SOTO [facility] Start: 07-23-2023 End: 07-23-2023 Office outpatient new 45 minutes Harris Montague MD Work Phone: [facility] Comment on above: Irritable bowel synd sarah with both constipation and diarrhea (Primary Dx); 9 weeks gestation of Start: 07-23-2023 End: 07-23-2023 ambulatory HARRIS MONTAGUE [facility] Start: 05-29-2023 End: 06-01-2023 ambulatory [facility] Start: 11-14-2022 End: 11-14-2022 ambulatory [facility] Start: 10-23-2022 End: 10-24-2022 ambulatory CARLI [facility] Start: 10-23-2022 End: 10-23-2022 Subsequent hospital visit by physician [facility] Comment on above: Rectal bleeding; Abnormal CT of the abdomen Start: 08-07-2022 End: 08-07-[address] EMIR HACKETT Facility:[facility] Start: 02-14-2022 End: 02-14-[address] EMIR HACKETT Facility:[facility] Procedures Date Procedure Procedure Detail Performing Clinician Start: 07-23-2023 Adult depression scr eening assessment Harris Montague MD Work Phone: Start: 10-23-2022 Assay of gammaglobul in iga igd igg igm each Carli Wild PET 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 - 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 Work Phone: Plan of Treatment Date Care Activity Detail Author Start: 08-02-2031 DTaP,Tdap and Td Vaccines (7 - Td or Tdap) DTaP,Tdap and Td Vaccines (7 - Td or Tdap) [facility] Start: 08-02-2031 DTaP/Tdap/Td vaccine (7 - Td or Tdap) DTaP/Tdap/Td vaccine (7 - Td or Tdap) [facility] Start: 07-29-2024 Adult BMI Screening Adult BMI Screen ing [facility] Start: 07-29-2024 Tobacco Screening Tobacco Screening [facility] Start: 07-22-2024 Adult BMI Screening Adult BMI Screen ing [facility] [employer] [facility] Start: 07-22-2024 Depression Screening Depression Scre ening [facility] Start: 07-22-2024 Tobacco Screening Tobacco Screening [facility] Start: 11-25-2023 [facility] Start: 11-22-2023 Hospital admission [facility] Start: 11-22-2023 [facility] Start: 01-17-2023 Influenza vaccination Influenza Vacc ine [facility] Start: 12-17-2022 Influenza vaccination Flu vacc ine (Season Ended) [facility] Start: 04-03-2022 Screening for Chlamy altagracia trachomatis Chlamydia Screening [facility] Start: 09-23-2020 Screening for malign ant neoplasm of cervix Pap smear [facility] Start: 09-23-2017 Hepatitis C screening Hepatitis C sc [facility]en [facility] Start: 2015 Screening for Chlamy altagracia trachomatis Chlamydia/GC screen [facility] Start: 09-23-2014 HIV screening HIV screen [employer] Start: 2011 Depression Screen Depression Screen [facility] Start: 03-26-2000 COVID-19 Vaccine (#1) COVID-19 Vacci ne (#1) [facility] End: 10-23-2022 Calprotectin Stool [facility] Work Phone: Comment on above: 1 Occurrences starti ng 10/23/2022 until 10/23/2022 Celiac Disease Panel Celiac Dise ase Panel Lab Routine Rectal bleeding Abnormal CT of the abdomen 10/23/2022 4:23 PM EDT [facility] [employer] Work Phone: Patient Education Depression, Ad ult (DC) [facility] [place] Instructions Know your Med[facility] Work Phone: Patient referral [facility] Work Phone: Payers Date Payer Category Payer Self-pay 2021 Medicaid [employer] [id number] 2021-Present [phone] [address] [place] [address] [id number] 2019 Unknown VIRI VELEZ ATUL REYNA (PPO) [id number] 2019-Present [phone] [address] [place] [address] [id number] 1999 Unknown [id number] 2.16.840.1.550101.3.579.2.593 1999 Unknown [id number] 2.16.840.1.109308.3.579.2.593 1999 Unknown [id number] 2.16.840.1.924397.3.579.2.174 1999 Unknown [id number] 2.16.840.1.164999.3.579.2.174 1999 Unknown [id number] 2.16.840.1.476149.3.579.2.173 1999 Unknown [id number] 2.16.840.1.053541.3.579.2.1286 1999 Unknown [id number] 2.16.840.1.037625.3.579.2.1286 1999 Unknown [id number] 2.16.840.1.982813.3.579.2.1286 1999 Unknown [id number] 2.16.840.1.266943.3.579.2.1259 1999 Unknown [id number] 2.16.840.1.086386.3.579.2.9 1999 Unknown [id number] 2.16.840.1.713049.3.579.2.1286 1999 Unknown [id number] 2.16.840.1.616291.3.579.2.1286 1999 Unknown [id number] 2.16.840.1.940322.3.579.2.1285 1999 Unknown [id number] 2.16.840.1.457041.3.579.2.1285 1999 Unknown [id number] 2.16.840.1.693641.3.579.2.1285 1999 Unknown [id number] 2.16.840.1.761744.3.579.2.128 1999 Unknown [id number] 2.16.840.1.194388.3.579.2.1285 1999 Unknown [id number] 2.16.840.1.625107.3.579.2.1286 1959 Unknown [id number] 1959 Unknown [id number] Unknown [id number] 2.16.840.1.665783.3.579.2.531 Unknown [id number] 2.16.840.1.728171.3.579.2.531 Social History Date Type Detail Facility Start: 10-23-2022 End: 11-23-2023 Tobacco smoking status NHIS Never smoked tobacco [employer] Phone: Start: 10-23-2022 End: 07-23-2023 Tobacco use and exposure Smokeless tobacco [facility] Phone: Start: 2000 Sex Assigned At Not on file B ON [employer] Phone: Start: 07-23-2023 End: 07-30-2023 Alcohol intake Lifetime non-drinker (finding) [facility] Start: 03-11-2020 End: 06-29-2020 History of Social function [facility] Start: 03-11-2020 End: 06-29-2020 Alcohol Use Disorder Identification Test - Consumption [AUDIT-C] [facility] How often to you hav e a drink containing alcohol? Never [facility] Average Number of Drinks Not on file [facility] How hard is it for y ou to pay for the very basics like food, housing, medical care, and heating Somewhat hard [facility] The thought of kelli flynn myself has occurred to me Hardly ever [facility] Start: 05-27-2023 [facility] Start: 2000 Sex Assigned At Female F [facility] Goals Date Patient Goal Desired Activity /State Functional Status Date Assessment Result Facility 11-25-2023 Functional status Patient at [facility] Work Phone: Mental Status Date Assessment Result Facility 11-25-2023 Cognitive function Cognitive Sta tus Patient at [facility] Work Phone: Clinical Notes 07-23-2023 to 11-24-2023 Note Date & Type Note Facility 11-24-2023 Progress note Note Date/Time November 24, 2023 1:21p m [facility] [address] [place] [address] Psychiatry Progress Note Signed Patient: Megan Collado MR#: [id number] : 2000 Acct:[id number] Age/Sex: 23 / F Adm Date: 4 Loc: Room: [address] [place] [address] Type : ADM IN Attending Dr: Krzysztof Montesinos MD Copies to: ~ Date of Service: 11/24/2023 Subjective Subjective Narrative: Ms. Collado reported that she is not too bad. She is tolerating her medications. She stated that she has been talking with her son's father and they have discussed about plans moving forward for the relationship. She denies current suicidal thoughts at this time. She reported that she slept better overnight and appetite has been normal. She does report some mild nausea but this has been improved today. Mental Status Exam: Appearance: grossly normal Mental Status: mental status grossly normal Mood: Improving mood Affect: Improving affect Speech and Movement: speech normal, movement normal Attitude: cooperative Thought Process: normal Thought Content: Denied hallucinations, no homicidality, improving suicidality Insight: fair Judgment: fair Exam Physical Exam Vital Signs: Temp Pulse Resp BP Pulse Ox O2 Del Method 98.2 F 109 H 16 108/67 98 Room Air 11/24/23 07:30 11/24/23 07:30 11/24/23 07:30 11/24/23 07:30 11/24/23 07:30 11/24/23 07:30 Objective Labs Labs: Abnormal Labs 11/24/23 05:29 Chloride 111 H Assessment/Plan Assessment/Plan (1) Major depressive disorder, recurrent, moderate: Plan Patient reported that mood has been improving Continue Zoloft 25 mg daily Continue to monitor mental status Encourage group participation and medication compliance Risk benefits alternatives explained Documented By: Demetrius Kelley MD 11/24/23 1320 Signed By: <Electronically signed by Demetrius Kelley MD> 11/24/23 1322 [facility] Work Phone: 1(635) 753-147807-07-2024 History and physical note Author Krzysztof vargas [facility] November 23, 2023 9:45am Note Date/Time November 23, 2023 7:42a m [facility] [address] [place] [address] Psychiatry H&P Signed Patient: Megan Collado MR#: [id number] : 2000 Acct:[id number] Age/Sex: 23 / F Adm Date: 4 Loc: Room: [address] [place] [address] Type: ADM IN Attending Dr: Krzysztof Montesinos MD Copies to: MD Brian Grant MD~ Date of Service: 11/23/2023 HPI History of Present Illness History of present illness: Ms. Collado is a 23 year old female with a reported history of depression who presents for inpatient admission due to worsening of depression and feeling suicidal with a plan to wreck her car. Reportedly, pt states that she found out her boyfriend is cheating on her again. Pt lives with boyfriend and their 2 yearold son in an apartment. Pt states she had a miscarriage in July 2023. At the time of the interview, she presents as overwhelmed. She said she wants to speak to the counselor to ventilate her feelings and build better coping skills. She rates her depression at 8 out of 10 with 10 being the worst. For at least two weeks, the patient complains of depressed mood most of the day every day, decreased interest in activities normally enjoyed, low energy andfatigue throughout the day even when sleeping adequately, feelings of worthlessness, high anxiety, and poor focus and concentration in routine activities. Sleep has been poor and appetite fluctuates. Pertinent stressors include not trusting her significant other due to cheating on her. She said he has done this frequently and always apologizes but she cannot trust them anymore. She is not sure what she will do about her relationship. Pt states she still currently breast feeding the 2 year old because he will only eat chicken nuggets and macaroni and cheese and will not drink cows milk. Pt states she has no support person and described her childhoodas rough. She said her family had the money but were not generous with her. 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 She said she does not talkto them and does not rely on them for any support. 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 She denies any illicit drug use. She reports previously taking Zoloft which was effective in reducing her depressive symptoms. She denies previous psychiatric hospitalization or previous suicide attempts. She denies symptoms suggestive of hernán, psychosis or agitation. Review of Systems Constitutional: Pt denies fatigue, malaise. Neuro: Denies dizziness/lightheadedness. Denies TBI, seizure, memory loss. Denies numbness/tingling in extremities HEENT: Denies vision/hearing changes. Pulmonary: Denies SOB, dyspnea, cough, wheezing. Cardiac: Denies chest pain/pressure. Denies edema, palpitations. GI: Denies abdominal pain, heartburn, N/V. Denies constipation and diarrhea : Denies dysuria, hematuria, polyuria. Physical exam General: not in any acute distress Skin: intact HEENT: head atraumatic, face symmetrical. Pulm: Breathing normally without excessive effort Cardio: Regular rate and rhythm Abdomen: Normal inspection Musculoskeletal: Moves all extremities, normal strength all extremities. Neuro: Pt alert, oriented x3. Gait normal. CNI: normal olfaction, no concerns reported CNII: Visual springer intact CNIII,IV,: EOM intact, no nystagmus. CNV: Sensation intact to light touch. CNVII: Raises eyebrows, smile/frown, puff out cheeks symmetrically. CNVIII: Hearing intact bilaterally. CNIX,X: Voice normal, soft palate elevation normal, symmetrical. CNXI: Shoulder shrug strong, equal bilaterally. CNXII: Tongue protrusion midline Mental Status: mental status grossly normal Mood: depressed mood Affect: constricted affect Speech and Movement: speech and movement normal and speech clear Attitude: cooperative Thought Process: normal Thought Content: Denied hallucinations, no homicidality and positive suicidality Insight: Fair Judgment: Fair PMFSH Social History Smoking Status: Never smoker Substance Use Type: None Meds Medications and Allergies Allergies No Known Allergies Allergy (Verified 11/22/23 15:06) Home Medications polyethylene glycol 3350 17 gram/dose oral powder (Miralax) 17 g PO DAILY PRN constipation 11/22/23 [History Confirmed 11/22/23] vit no.95-ferrous fumarate 28 mg-folic acid 800 mcg tablet () 1tab PO DAILY 11/22/23 [History Confirmed 11/22/23] Exam Physical Exam Vital Signs: Temp Pulse Resp BP Pulse Ox O2 Del Method 98.4 F 100 16 104/75 99 Room Air 11/22/23 22:34 11/22/23 22:34 11/22/23 22:34 11/22/23 22:34 11/22/23 22:34 11/22/23 22:34 Assessment/Plan (1) Major depressive disorder, recurrent, moderate: Plan Admit to 1S for management of depression and to ensure safety of self due to SI. Start Zoloft 25 mg p.o. daily. Monitor suicidal behaviors for safety of self (15-minute face check). Recommend attending groups and psychoeducation for building coping skills. Typical short- and long-term side effects of the proposed medication regimen, including contraindications and clinically significant interactions, were discussed with the patient. I gave examples of side effects such as but not limited to sedation, movement disorders (TD, EPS), weight gain, and appetite changes and advised the patient not to drive while taking these meds. We also discussed risk of overdose with this current med regimen. Targeted symptoms and signs, possible therapeutic benefit, side effect and risks No abnormal movements noted on exam. AIMS is Zero. Involve friends/family members if applicable to coordinate care and ensure appropriate outpatient appointments are scheduled prior to discharge. I have reviewed evaluations by other providers (ER notes, nurses and staff) Documented By: Krzysztof Montesinos MD [id number] Signed By: <Electronically signed by Krzysztof Montesinos MD> 11/23/23 0945 [facility] Work Phone: 1(190) 999-866803-28-2024 Miscellaneous Notes* Telephone Encounter - Malia Sanchez CMA - 08/14/2023 1:54 PM EDT ----- Message from Harris Montague MD sent at 08/14/2023 12:44 PM EDT ----- Abnormal result. Concerning for miscarriage/ termination Please call patient to see if she would like appointment with provider to discuss or if OB providerhas already reviewed? * Telephone Encounter - Malia Sanchez CMA - 08/14/2023 1:54 PM EDT Called patient she stated that she did not need to set up an appointment [facility]* Telephone Encounter - Malia Sanchez CMA - 08/14/2023 1:54 PM EDT ----- Message from Harris Montague MD sent at 08/14/2023 12:44 PM EDT ----- Abnormal result. Concerning for miscarriage/ termination Please call patient to see if she would like appointment with provider to discuss or if OB providerhas already reviewed? [facility] Telephone encounter Note* Telephone Encounter - Malia Sanchez CMA - 08/14/2023 1:54 PM EDT Called patient she stated that she did not need to set up an appointment T [facility]03[facility] History of Present illness Narrative* Harris Montague MD - 07/23/2023 9:00 AM EST Images from the original note were not included. [address] [place] [address] [facility] [id number] Patient: Megan Collado Date of : 2000 Encounter Date: 07/23/2023 SUBJECTIVE: Chief Complaint: Chief Complaint Patient presents with [facility] Care Patient ID: Megan Collado is a 22 y.o. female. Pleasant 22-year-old female comes in today She is currently 9 weeks , . Has intake scheduled with OB [facility] next week, Dr. Flowers. Last was a spontaneous vaginal delivery, went to term and was uncomplicated. Her did have SVT and required readmission Past medical history is largely unremarkable, she has a healthy 22-year-old female with some history of anxiety previously required SSRI is not currently on any therapy or seeing any counseling services. No other hospitalizations reported Did have a colonoscopy completed and found to have a tortuous colon. Does continue have some symptoms of constipation and diarrhea consistent with IBS. Has previously tried MiraLax among other therapies. Never tried the FODMAP diet. The following portions of the patient's history were reviewed and updated as appropriate: allergies, current medications, past family history, past medical history, past social history, past surgicalhistory and problem list. PHYSICAL EXAMINATION: Vitals: 07/23/23 0912 BP: 124/74 Pulse: 56 Temp: 36.9 C (98.5 F) SpO2: 97% Weight: 65.3 kg (144 lb) Height: 167.6 cm (5' 5.98 ) Physical Exam Vitals reviewed. Constitutional: General: She is not in acute distress. Appearance: Normal appearance. Eyes: Extraocular Movements: Extraocular movements intact. Pupils: Pupils are equal, round, and reactive to light. Cardiovascular: Rate and Rhythm: Normal rate and regular rhythm. Pulses: Normal pulses. Heart sounds: Normal heart sounds. Pulmonary: Effort: Pulmonary effort is normal. No respiratory distress. Breath sounds: Normal breath sounds. No wheezing or rhonchi. Abdominal: General: Bowel sounds are normal. There is no distension. Palpations: Abdomen is soft. There is no mass. Tenderness: There is no abdominal tenderness. There is no right CVA tenderness, left CVA tendernessor guarding. Musculoskeletal: Cervical back: Normal range of motion and neck supple. Neurological: Mental Status: She is alert and oriented to person, place, and time. Mental status is at baseline. ASSESSMENT/PLAN: Megan was seen today for establish care. Diagnoses and all orders for this visit: Irritable bowel syndrome with both constipation and diarrhea 9 weeks gestation of Discussed FODMAP diet Diet and exercise counseling Recommended use of probiotics regularly Follow-up as needed. HARRIS MONTAGUE MD Family Medicine Physician [facility] 07/23/23 This note was completed with voice recognition software. The document was reviewed for errors however some may still be present. Please do not hesitate to contact/[facility] the author to verify any questions/concerns. documented in this encounter[facility] SystemDischarge summary Author Demetrius Kelley [facility] November 25, 2023 12:08pm Note Date/Time November 25, 2023 11:[address] [facility] [address] [place] [address] Discharge Summary Signed Patient: Megan Collado MR#: [id number] : 2000 Acct:[id number] Age/Sex: 23 / F Adm Date: 4 Loc: Room: [address] [place] [address]: Krzysztof Montesinos MD Copies to: MD Demetrius Grant MD Asif Mahmood MD~ Providers Date of Discharge: 11/25/23 Discharging Provider: Demetrius Kelley Primary Care Provider: Brian Elizabeth Discharge Diagnosis (1) Major depressive disorder, recurrent, moderate: Final Diagnosis Final Discharge Diagnosis: Major depressive disorder Summary Hospital Course Hospital course: Ms. Collado is a 23 year old female with a reported history of depression who presents for inpatient admission due to worsening of depression and feeling suicidal with a plan to wreck her car. Reportedly, pt states that she found outher boyfriend is cheating on her again. Pt lives with boyfriend and their 2 yearold son in an apartment. Pt states she had a miscarriage in July 2023. At the time of the interview, she presents as overwhelmed. She said she wants to speak to the counselor to ventilate her feelings and build better coping skills. She rates her depression at 8 out of 10 with 10 being the worst. For at least two weeks, the patient complains of depressed mood most of the day every day, decreased interest in activities normally enjoyed, low energy andfatigue throughout the day even when sleeping adequately, feelings of worthlessness, high anxiety, and poor focus and concentration in routine activities. Sleep has been poor and appetite fluctuates. Pertinent stressors include not trusting her significant other due to cheating on her. She said he has done this frequently and always apologizes but she cannot trust them anymore. She is not sure what she will do about her relationship. Pt states she still currently breast feeding the 2 year old because he will only eat chicken nuggets and macaroni and cheese and will not drink cows milk. Pt states she has no support person and described her childhoodas rough. She said her family had the money but were not generous with her. 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 She said she does not talkto them and does not rely on them for any support. 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 She denies any illicit drug use. She reports previously taking Zoloft which was effective in reducing her depressive symptoms. She denies previous psychiatric hospitalization or previous suicide attempts. She denies symptoms suggestive of hernán, psychosis or agitation. Patient was started on Zoloft. She tolerated the medication without any problems and did not report any side effects. She had gradual improvement of her symptoms as time went on. Her depression gradually improved and she no longer reported any suicidal thoughts. She did not exhibit any behavior concerning for suicidality during her hospitalization. As her symptoms improved, shesocialized with peers. Her appetite and sleep were normal during her hospitalization. She does report better outlook of her relationship as time went on during her hospitalization. She was open to continuing to work on things. She was future oriented during her hospitalization and talked about continuing to complete her college course. On the day of discharge, she reported she was feeling better. She denied any depression or suicidality. Shewas comfortable with the discharge plan home and following up with outpatient services. Time spent discussing smoking cessation with patient: 3 to 10 minutes Condition Condition at Discharge: Stable Status at Discharge Cognitive/behavioral status at discharge: Mental Status Exam: Appearance: grossly normal Mental Status: mental status grossly normal Mood: Euthymic mood Affect: Normal affect Speech and Movement: speech normal, movement normal Attitude: cooperative Thought Process: normal Thought Content: Denied hallucinations, no homicidality and no suicidality Insight: Good Judgment: Good Functional status at discharge: independent ambulation Overall status at discharge: patient is back to baseline Time Spent with Patient Time spent providing/coordinating discharge services (# min): 30 Discharge Plan Discharge Plan Patient Disposition: Home Activity: No Activity Restriction Diet: Regular Additional Instructions: Important Contact Information You can call [facility] at [phone] any time day or night if you have emergent questions or question regarding discharge instructions. If at any time you are feeling an increase inyour psychiatric symptoms, call your physician or behavioral healthcare provider. If any time you have thoughts of harming yourself or others contact one of the following: Call 98-8 (available 09/12) Crisis Text Line (available 09/12) text 4HOPE to [phone] [facility] Hope Line (available 8 a.m. Midnight) call [phone] ([phone]) Instructions: Depression, Adult (DC), [facility]al [facility] DC Instructions, Know your Meds Stand Alone Forms: Work/School Release Form Prescriptions: New nicotine (polacrilex) 2 mg Gum 2 mg buccal Q2H PRN (Reason: Nicotine Cravings) Qty: 20 0RF sertraline 25 mg Tablet 25 mg PO QAM 30 Days Qty: 30 0RF Continued PNV cmb#95-ferrous fumarate-FA [] 28 mg iron- 800 mcg tablet 1 tab PO DAILY polyethylene glycol 3350 [Miralax] 17 gram/dose powder 17 g PO DAILY PRN (Reason: constipation) Follow Up: [facility] [Outside] - 11/26/23 (This will be phone call. If you miss the call please return it as soon as possible. All future appointments will be made then.) Brian Elizabeth MD [Primary Care Provider] - (Please contact for any medical needs or concerns) Exam Physical Exam Vital Signs: Temp Pulse Resp BP Pulse Ox O2 Del Method 98.5 F 104 H 18 108/77 97 Room Air 11/25/23 07:30 11/25/23 07:30 11/24/23 20:13 11/25/23 07:30 11/25/23 07:30 11/25/23 07:30 Documented By: Demetrius Kelley MD 11/25/23 1113 Signed By: <Electronically signed by Demetrius Kelley MD> 11/25/23 1208 [facility] Work Phone: Evaluation note* Diagnosis Rectal bleeding Hemorrhage of rectum and anus Abnormal CT of the abdomen Nonspecific (abnormal) findings on radiological and other examination of abdominal area, including retroperitoneum documented in this encounter [facility] Work Phone: evaluation note* Diagnosis Irritable bowel syndrome with both constipation and diarrhea- Primary 9 weeks gestation of documented in this encounter [facility] SystemEvaluation note* Diagnosis Onset Date Resolution Status Major depressive disorder, recurrent, moderate acute [facility] Work Phone: InstructionsNot on filedocumented in this encounter [facility] [employer] SystemInstructionsNot on filedocumented in this encounter [facility] Summary Purpose Family History No Family History Records FoundNo Family History Records FoundNo Family History Records FoundNo Family History Records FoundNo Family History Records FoundNo Family History Records FoundNo Family History Records FoundNo Family History Records FoundNo Family History Records Found Advance Directives No Advanced Directives Records FoundLatest Code Status on File Code Status Date Activated Date Inactivated Comments Full Code 09/25/2021 12:10 PM 09/27/2021 3:39 PM Code Status History Code Status Date Activated Date Inactivated Comments Full Code 08/24/2021 12:03 PM 08/24/2021 2:24 PM Advance Directive Response Recorded Date/ Time Advance Directives No November 21 1:28pm Chief Complaint and Reason for Visit Chief Complaint Major Depression Major Depression Reason for Visit Major depressive dis order, recurrent, moderate Additional Source Comments INFORMATION SOURCE (unrecogn ized section and content) DATE CREATED AUTHOR 08/10/2022 [facility] DATE CREATED AUTHOR AUTHOR'S ORGANIZ ATION 11/18/2022 [facility] DATE CREATED AUTHOR AUTHOR'S ORGANIZ ATION 02/26/2023 [facility] DATE CREATED AUTHOR AUTHOR'S ORGANIZ ATION 06/01/2023 [facility] DATE CREATED AUTHOR AUTHOR'S ORGANIZ ATION 02/07/2024 [facility] DATE CREATED AUTHOR AUTHOR'S ORGANIZ ATION 02/08/2024 [facility] DATE CREATED AUTHOR AUTHOR'S ORGANIZ ATION 02/19/2024 [facility] DATE CREATED AUTHOR AUTHOR'S ORGANIZ ATION 02/21/2024 [facility] DATE CREATED AUTHOR AUTHOR'S ORGANIZ ATION 02/21/2024 [facility] Reason for Visit (unrecogniz ed section and content) Reason Comments Establish Care Care Teams (unrecognized sec tion and content) Clock Maker Relationship Specialty Start Date End Date Harris Montague MD [address] [place] [address] PCP - General Internal Medicine 07/23/23 Clock Maker Relationship Specialty Start Date End Date Harris Montague MD [address] [facility] [place] [address] PCP - General Internal Medicine 07/23/23 Team Status: Active Member Role Status Dates Brian Elizabeth MD Primary Care Provider Active Team Status: Inactive Member Role Status Dates Brian Elizabeth MD Primary Care Provider Active S tart: November 22, 2023 End: November 25, 2023 Krzysztof Montesinos MD Admit Provide r, Attending Provider Active Start: November 22, 2023 End: November 25, 2023 Team Status: Active Member Role Status Dates Brian Elizabeth MD Primary Care Provider Active S tart: November 23, 2023 Krzysztof Montesinos MD Admit Provide r, Attending Provider, Other Provider Active Start: November 23, 2023 FOR RECORDS PERTAINING TO PATIENTS WHO ARE OR HAVE BEEN ENROLLED IN A CHEMICAL DEPENDENCY/SUBSTANCEABUSE PROGRAM, SOME INFORMATION MAY BE OMITTED. This clinical summary was aggregated from multiple sources. Caution should be exercised in using it in the provision of clinical care. This summary normalizes information from multiple sources, and as a consequence, information in this document may materially change the coding, format and clinical context of patient data. In addition, data may be omitted in some cases. CLINICAL DECISIONS SHOULD BE BASED ON THE PRIMARY CLINICAL RECORDS. [facility]. provides no warranty or guarantee of the accuracy or completeness of information in this document.
== END 2024-02-27 10:56 | disposition home or self-care (01) ==
LOC: LAB 10:55
PROVIDERS: PCP Family Medicine; Visit Provider Obstetrics & Gynecology
DX: Z34.80 Encounter for supervision of other normal pregnancy, unspecified trimester (principal)

== ENCOUNTER 2024-04-06 21:11 | Outpatient (REF) | payer OTHER, SELFPAY ==
--- OUTSIDE RECORDS SUMMARY | 2024-04-06 21:17 | XMS_ITS | CCD ---
Author Organization [facility] CliniSyid Care Team Providers Care Senior Field Engineer Name Role Phone DR SHARMILA KING Primary Care Unavailable ANAI, DR BRIAN Madera Admitting Unavailabl e REINECK, DR BRIAN Madera Attending Unavailabl e DINAECK, DR BRIAN Madera Consulting Unavailabl e GRECHNY ., KRISTY ECHAVARRIA Consulting Unavailabl e OWENS, HUGO Consulting Unavailable LEW, DR SHARMILA Fisher Primary Care Unavailable ERICKA Go, DR MORIN Admitting Unavailable ERICKA Go, DR MORIN Attending Unavailable SHREE, DR AGUSTIN Montes De Oca Consulting Unavailable ERICKA Go, DR MORIN Consulting Unavailable Unavailable Primary Care Provider UnavailCARLI Garcia Referring Unavailable VENITA AMBROSIO Admitting Unavailable VENITA AMBROSIO Attending Unavailable CARLI WILD Referring Unavailable Harris Montague MD Primary Care Provider [phone] MD Brian Elizabeth Primary Care Provider [phone] MD Krzysztof Montesinos Admit Provider MD Krzysztof Montesinos Attending Provider HARRIS MONTAGUE Attending Unavailable SHARMILA KING Referring Unavailable BRIANHARRIS Primary Care Unavailable BRIANHARRIS Attending Unavailable HARRIS MONTAGUE Referring Unavailable BRIANKALHAMID Karley Primary Care Unavailable BRIANKALHAMID Karley Referring Unavailable BRIAN MUHAMID Karley Primary Care Unavailable PRADIP FLOWERS Attending Unavailable Sharmila King MD Unavailable [phone] Harris Montague MD Primary Care Provider HARRIS MONTAGUE Primary Care Unavailable NATASHA ELIZABETH Attending Unavailable HAROLDO SOTO Attending Unavailable HAROLDO SOTO Referring Unavailable BRIAN, MUHAMID M Primary Care Unavailable LIONEL, PRADIP R Referring Unavailable BRIAN, MUHAMID M Primary Care Unavailable LIONEL, PRADIP R Referring Unavailable BRIAN, MUHAMID M Primary Care Unavailable LIONEL, PRADIP R Referring Unavailable BRIAN, MUHAMID M Primary Care Unavailable LIONEL, PRADIP R Referring Unavailable BRIAN, MUHAMID M Primary Care Unavailable BRIAN, MUHAMID M Primary Care Unavailable ALEX CHAVES Attending Unavailable LIONEL, PRADIP R Referring Unavailable BRIAN, MUHAMID M Primary Care Unavailable BRIAN, MUHAMID M Primary Care Unavailable JaguarKrzysztof vargas Admitting Unavailab le Glenn, Brian Primary Care Unavailable Demetrius Kelley Attending Unavailable Krzysztof Montesinos Attending Unavailab le JaguarKrzysztof vargas Admitting Unavailab le Glenn, Brian Primary Care Unavailable Allergies Allergy Classification Reported Allergen(s) Allergy Type Date of Onset Reaction(s) Facility (4 sources) Amoxicillin; Translations: [AMOXICILLIN] Drug Allergy 01-14-2021 [facility] Repository (7 sources) Amoxicillin Drug Allergy 04-07-2021 Vomiting [facility] Medications Current Medications Medication Drug Class(es) Dates Sig (Normalized) Sig (Original) nicotine 2 mg chewing gum (1 source) Cholinergic Nicotinic Agonist Start: 11-25-2023 Nicotine (Polacrilex) Active 2 MG BUCCAL Q2H November 25, 2023 12:00am ondansetron 4 mg disintegrating oral tablet (3 sources) Serotonin-3 Receptor Antagonist Start: 02-25-2024 End: 03-26-2024 take 1 tablet by mouth every six hours for nausea ondansetron ODT (Zofran-ODT) 4 MG disintegrating tablet Indications: Nausea and vomiting in Take 1 tablet (4 mg) by mouth every 6 (six) hours if needed for nausea or vomiting 30 tablet 2 02/25/2024 03/26/2024 Active Pnv Cmb#95-Ferrous Fumarate-Fa () 28 mg iron- 800 mcg tablet (1 source) Start: 11-22-2023 take 1 tablet by mouth once daily Pnv Cmb#95-Ferrous Fumarate-Fa () 28 mg iron- 800 mcg tablet Active 1 TAB PO Daily November 22, 2023 12:00am polyethylene glycol 3350 03276 mg powder for oral solution (1 source) Osmotic Laxative Start: 11-22-2023 Polyethylene Glycol 3350 (Miralax) 17 gram/dose powder Active 17 GM PO Daily November 22, 2023 12:00am 25/iron fum/folic/dha (-1 ORAL) (2 sources) take 1 tablet by mouth once daily 25/iron fum/folic/dha (-1 ORAL) Take 1 tablet by mouth daily. 0 Active MV & Min w/FA-DHA ( Gummies) 0.18-25 MG chewable tablet (2 sources) Start: 03-09-2024 MV & Min w/FA-DHA ( Gummies) 0.18-25 MG chewable tablet Indications: First trimester Chew 1 each Daily 30 tablet 11 03/09/2024 Active MV-Min-Fe Fum-FA-DHA ( 1 PO) (1 source) MV-Min- Fe Fum-FA-DHA ( 1 PO) Take 1 tablet by mouth daily 0 Active Vit-Fe Fumarate-FA ( Vitamins) 28-0.8 MG tablet (4 sources) Start: 11-17-2023 take 1 tablet by mouth once daily Vit-Fe Fumarate-FA ( Vitamins) 28-0.8 MG tablet Take 1 tablet by mouth Daily 11/17/2023 Active sertraline 50 mg oral tablet (5 sources) Serotonin Reuptake Inhibitor Start: 01-27-2024 take 1 tablet by mouth once daily sertraline (Zoloft) 50 MG tablet Take 50 mg by mouth Daily 01/27/2024 Active Start: 11-25-2023 take 25 mg by mouth once daily in the morning Sertraline Active 25 MG PO Every morning November 25, 2023 12:00am Problems Active Problems Problem Classification Problem Date Documented Da te Episodic/Chronic Anxiety disorders (5 sources) Anxiety disorder, unspecified; 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] Onset: 2 10-23-2022 Chronic Gastrointestinal hemorrhage (3 sources) Gastrointestinal hemorrhage, unspecified; Translations: [Rectal hemorrhage] Onset: Episodic Genitourinary symptoms and ill-defined conditions (3 sources) Personal history of urinary (tract) infections; Translations: [Dysuria] Onset: 3 Episodic Menstrual disorders (2 sources) Missed period; Translations: [Irregular menstruation, unspecified] Onset: 4 02-19-2024 Chronic Mood disorders (3 sources) Recurrent major [...] mass and lump] Onset: 4 Episodic Other gastrointestinal disorders (1 source) Constipation, unspecified; Translations: [Constipation, unspecified] Onset: 4 Episodic Other gastrointestinal disorders (1 source) Constipation Onset: 4 Episodic Other lower respiratory disease (4 sources) Shortness of breath; Translations: [SHORTNESS OF BREATH] Onset: 3 Episodic Other and delivery including normal (7 sources) Finding of ; Translations: [Encounter for [...] [9 weeks gestation of ] 07-23-2023 Episodic Residual codes; unclassified (2 sources) Gestation period, 11 weeks; Translations: [11 weeks gestation of ] 03-09-2024 Episodic Unclassified (1 source) Establish Care Onset: 4 Unclassified (1 source) Vaginal Bleeding - Onset: 4 Unclassified (1 source) Vaginal Bleeding - 10 wks Onset: 4 Urinary tract infections (1 source) Urinary tract infectious disease Onset: 09-19-202 4 Episodic Past or Other Problems Problem [...] Test Name Value Interpretation Reference Range Facility Urinalysis macro (dipstick) panel (U)on 03-09-2024 Bilirubin, UA Negative Negative - 4(70) +++ mg/dL [facility] Blood, UA Negative Negative - 50 Hosea/mcL [facility] Clarity, UA Clear [facility] Color, UA Yellow [facility] Glucose, UA Negative Negative - 2000(110) ++++ mg/dL [facility] Interpretation and review of laboratory results Abnormal [facility] Ketones, UA Negative Negative - 160(16) ++++ mg/dL [facility] Leukocytes, UA Trace Negative - 500+++ Greg/mcL [facility] Nitrite, UA Negative Negative - Positive [facility] pH, UA 6.5 5 - 9 [facility] Protein, UA Negative Negative - 2000(20) ++++ mg/dL [facility] Spec Grav, UA 1.02 1 - 1.03 [facility] Urobilinogen, UA 0.2 0.2 - 12 mg/dL Replaced by [facility] CBC AND AUTO DIFFon 02-19-20 24 ABSOLUTE BASOPHIL 0.0 X10E9/L Normal 0.0-0.[address] [facility] Comment on above: Performed By: #### C BCA, CMP, [id number] #### [facility] ([id number]) [address] [place] [address], [place] [address] ABSOLUTE NEUTROPHIL 6.7 X10E9/L High 1.5-6.6 [facility] Comment on above: Performed By: #### C MIL CMP, #### [facility] ([id number]) [address] [place] [address]38 Basophils/100 WBC (Bld) 0.3 % Normal [facility] Comment on above: Performed By: #### C MIL, CMP, #### [facility] ([id number]) [address] [place] [address]121 Eosinophils (Bld) [#/Vol] 0.0 10*3/uL Normal 0.0-0.4 [facility] Comment on above: Performed By: #### C MIL, CMP, #### [facility] ([id number]) [address] [place] [address] 05149 Eosinophils/100 WBC (Bld) 0.4 % Normal [facility] Comment on above: Performed By: #### Manish JAEGER CMP, #### [facility] ([id number]) [address] [place] [address] 65655 Erythrocyte distribution width (RBC) [Ratio] 14.2 % Normal 11.5-15.0 [facility] Comment on above: Performed By: #### C MIL CMP, #### [facility] ([id number]) [address] [place] [address] 51993 Hematocrit (Bld) [Volume fraction] 40.0 % Normal 35-47 [facility] Comment on above: Performed By: #### C MIL, CMP, #### [facility] ([id number]) [address] [place] [address] 71453 Hemoglobin (Bld) [Mass/Vol] 13.7 g/dL Normal 11.7-15.5 [facility] Comment on above: Performed By: #### Manish JAEGER, CMP, #### [facility] ([id number]) [address] [place] [address] 36778 Lymphocytes (Bld) [#/Vol] 1.6 10*3/uL Normal 1.0-3.5 [facility] Comment on above: Performed By: #### Manish JAEGER CMP, #### [facility] ([id number]) [address] [place] [address] 71686 Lymphocytes/100 WBC (Bld) 17.6 % Normal [facility] Comment on above: Performed By: #### Manish JAEGER CMP, #### [facility] ([id number]) [address] [place] [address] 22882 MCH (RBC) [Entitic mass] 31.3 pg Normal 27-34 [facility] Comment on above: Performed By: #### Manish JAEGER CMP, #### [facility] ([id number]) [address] [place] [address] 46683 MCHC (RBC) [Mass/Vol] 34.3 g/dL Normal 32-36 [facility] Comment on above: Performed By: #### Manish JAEGER CMP, #### [facility] ([id number]) [address] [place] [address] 30709 MCV (RBC) [Entitic vol] 91 fL Normal 80-100 [facility] Comment on above: Performed By: #### Manish JAEGER CMP, #### [facility] ([id number]) [address] [place] [address] 80705 Monocytes (Bld) [#/Vol] 0.6 10*3/uL Normal 0-0.9 [facility] Comment on above: Performed By: #### Manish JAEGER CMP, #### [facility] ([id number]) [address] [place] [address] 99292 Monocytes/100 WBC (Bld) 6.6 % Normal [facility] Comment on above: Performed By: #### Manish JAEGER CMP, #### [facility] ([id number]) [address] [place] [address] 16389 Neutrophils/100 WBC (Bld) 75.1 % Normal [facility] Comment on above: Performed By: #### Manish JAEGER CMP, #### [facility] ([id number]) [address] [place] [address] 59745 Platelet mean volume (Bld) [Entitic vol] 9.0 fL Normal 7-12 [facility] Comment on above: Performed By: #### Manish JAEGER CMP, #### [facility] ([id number]) [address] [place] [address] 34514 Platelets (Bld) [#/Vol] 173 10*3/uL Normal 150-450 [facility] Comment on above: Performed By: #### Manish JAEGER CMP, #### [facility] ([id number]) [address] [place] [address] 89726 RBC COUNT 4.39 X10E12/L Normal 3.80-5.20 [facility] Comment on above: Performed By: #### Manish JAEGER CMP, #### [facility] ([id number]) [address] [place] [address] 99349 WBC (Bld) [#/Vol] 8.9 10*3/uL Normal 4.0-11.[address] [facility] Comment on above: Performed By: #### Manish JAEGER CMP, #### [facility] ([id number]) [address] [place] [address] 29069 DRUG SCREEN, URINEon 024 AMPHETAMINE/METHAMP Negative Normal NEG [facility] Comment on above: Result Comment: AMPH /METH screening cut off = 1000 ng/mL Performed By: #### C MIL [facility], #### [facility] ([id number]) [address] [place] [address] 77833 BARBITURATES Negative Normal NEG [facility] Comment on above: Result Comment: Marcela iturates screening cut off value = 200 ng/mL Performed By: #### C MIL [facility], #### [facility] ([id number]) [address] [place] [address] 70230 BENZODIAZEPINES Negative Normal NEG [facility] Comment on above: Result Comment: Jose odiazepines screening cut off value = 200 ng/mL Performed By: #### C MIL [facility], #### [facility] ([id number]) [address] [place] [address] 08222 CANNABINOIDS Negative Normal NEG [facility] Comment on above: Result Comment: Tre abinoids/THC screening cut off value = 50 ng/mL Performed By: #### C MIL [facility], #### [facility] ([id number]) [address] [place] [address] 83368 COCAINE METABOLITE Negative Normal NEG [facility] Comment on above: Result Comment: Coca ine screening cut off value = 300 ng/mL Performed By: #### C MIL [facility], #### [facility] ([id number]) [address] [place] [address] 60941 ECSTASY Negative Normal NEG [facility] Comment on above: Result Comment: Ecst asy screening cut off value = 500 ng/mL This report is intended for use in clinical monitoring or management of patients. Performed By: #### C MIL [facility], #### [facility] ([id number]) [address] [place] [address] 65450 METHADONE Negative Normal NEG [facility] Comment on above: Result Comment: Meth adone screening cut off value = 300 ng/mL. Performed By: #### C NIKA JAEGER, #### [facility] ([id number]) [address] [place] [address] 52380 OPIATES Negative Normal NEG [facility] Comment on above: Result Comment: Opia krys screening cut off value = 300 ng/mL NOTE: This test is used for the detection of codeine, hydrocodone (>1000 ng/mL), morphine and hydromorphone (>900 ng/mL) in urine. Performed By: #### C NIKA JAEGER, #### [facility] ([id number]) [address] [place] [address] 26079 OXYCODONE Negative Normal NEG [facility] Comment on above: Result Comment: Oxyc odone screening cut off value = 300 ng/mL NOTE: This test is used for the detection of oxycodone and oxymorphone in urine. Performed By: #### C NIKA JAEGER, #### [facility] ([id number]) [address] [place] [address] 96725 PHENCYCLIDINE Negative Normal NEG [facility] Comment on above: Result Comment: Phen cyclidine screening cut off value = 25 ng/mL Performed By: #### Manish JAEGER CMP, #### [facility] ([id number]) [address] [place] [address] 72854 HBV surface Ag IA Qlon 02-18 HEPATITIS B SURF AG Negative Normal NEG [facility] Comment on above: Performed By: #### Manish JAEGER CMP, #### [facility] ([id number]) [address] [place] [address] 90022 HCG ( test) Ql (U)o n 02-19-2024 Interpretation and review of laboratory results Abnormal [facility] Preg Test, Ur Positive [facility] HCV Ab IA Qlon 02-19-2024 ANTI HCV W/PCR REFLX Non-Reactive Normal NRCT [facility] Comment on above: Result Comment: If recent infection suspected, recommend repeat testing (>2 months). Whgtvn-bn-lbizcd ratio is <0.80. Performed By: #### C NIKA JAEGER, #### [facility] ([id number]) [address] [place] [address] 74341 HGB A1C (GLYCO-HGB)on 2023 Glucose [Mass/Vol] 105 mg/dL Normal [facility] Comment on above: Performed By: #### C MIL [facility], #### [facility] ([id number]) [address] [place] [address] 20576 HbA1c (Bld) [Mass fraction] 5.3 % Normal 4.4-5.6 [facility] Comment on above: Result Comment: NOTE ADA Guidelines Result HgbA1c Normal : less than 5.7 % Prediabetes : 5.7 % to 6.4 % Diabetes : > 6.4 % Use with caution in patients with abnormal hemoglobin variants as the half-life of red blood cells and in vivo glycation rates are affected. Performed By: #### C MIL [facility], #### [facility] ([id number]) [address] [place] [address] 43402 HIV 1+2 Ab+HIV1 p24 Ag IA Ql on 02-19-2024 HIV 1 and 2 Ab/Ag Screen Non-Reactive Normal NRCT [facility] Comment on above: Result Comment: This information [...] test results or diagnoses. Performed By: #### Manish JAEGER CMP, #### [facility] ([id number]) [address] [place] [address] 77587 Rubella virus IgG Qn (S)on 1 RUBELLA IgG 119 IU/mL Normal [facility] Comment on above: Result Comment: Interpretation-------- <8 NEGATIVE-considered Not Immune 8-9 EQUIVOCAL-consider retesting with new specimen >9 POSITIVE-considered Immune Performed By: #### Manish JAEGER CMP, #### [facility] ([id number]) [address] [place] [address] 27887 T. pallidum IgG+IgM IA Ql (S )on 02-19-2024 Syphilis Total <0.2 Normal 0.0-0.8 [facility] Comment on above: Result Comment: NON REACTIVE No serologic evidence of infection to Treponema pallidum (syphilis). Repeat testing may be considered in patients with suspected acute or primary syphilis in 2 to 4 weeks. Performed By: #### Manish JAEGER CMP, #### [facility] ([id number]) [address] [place] [address] 64935 URINE CULTUREon 02-19-2024 Bacteria identified Cx Nom (U) CULTURE RESULTS 10-50,000 ORGANISMS/mL NORMAL UROGENITAL KACEY Normal [facility] Comment on above: Performed By: #### Manish JAEGER CMP, #### [facility] ([id number]) [address] [place] [address] 48575 Urinalysis macro (dipstick) panel (U)on 02-19-2024 Bilirubin, UA Negative Negative - 4(70) +++ mg/dL [facility] Blood, UA Negative Negative - 50 Hosea/mcL [facility] Clarity, UA Clear [facility] Color, UA Yellow [facility] Glucose, UA Negative Negative - 1999(110) ++++ mg/dL [facility] Interpretation and review of laboratory results Normal [facility] Ketones, UA Negative Negative - 160(16) ++++ mg/dL [facility] Leukocytes, UA Negative Negative - 500+++ Greg/mcL [facility] Nitrite, UA Negative Negative - Positive [facility] pH, UA 5.5 5 - 9 [facility] Protein, UA Negative Negative - 2000(20) ++++ mg/dL [facility] Spec Grav, UA 1.015 1 - 1.03 [facility] Urobilinogen, UA 1.0 0.2 - 12 mg/dL Replaced by [facility] URINE CULTUREon 02-05-2024 Bacteria identified Cx [facility] (U) CULTURE RESULTS 10-50,000 ORGANISMS/mL NORMAL UROGENITAL KACEY Normal [facility] Comment on above: Performed By: #### 6 30-4 #### [facility] ([id number]) [address] [place] [address], [address] [place] [address] Alanine aminotransferase [En zymatic activity/volume] in Serum or PlasmaOrdered By: Krzysztof Montesinos on 11-24-2023 ALT [Catalytic activity/Vol] 9 U/L Normal 7-52 [facility] Comment on above: Performed By: #### C MP #### [facility] [address] Albumin [Mass/volume] in Ser um or Plasma by Bromocresol green (BCG) dye binding methoOrdered By: Krzysztof Montesinos on 11-24-2023 Albumin BCG dye [Mass/Vol] 4.3 g/dL 3.5-5.7 [facility] Alkaline phosphatase [Enzyma tic activity/volume] in Serum or PlasmaOrdered By: Krzysztof Montesinos on 11-24-2023 ALP [Catalytic activity/Vol] 39 U/L Normal 34-104 [facility] Comment on above: Performed By: #### C MP #### [address] Aspartate aminotransferase [ Enzymatic activity/volume] in Serum or PlasmaOrdered By: Krzysztof Montesinos on 11-24-2023 AST [Catalytic activity/Vol] 14 U/L Normal 13-39 [facility] Comment on above: Performed By: #### C MP #### [address] Bilirubin.total [Mass/volume ] in Serum or PlasmaOrdered By: Krzysztof Montesinos on 11-24-2023 Bilirubin [Mass/Vol] 1.0 mg/dL Normal 0.3-1.0 [facility] Comment on above: Performed By: #### C MP #### [address] Calcium [Mass/volume] in Ser um or PlasmaOrdered By: Krzysztof Montesinos on 11-24-2023 Calcium [Mass/Vol] 9.0 mg/dL Normal 8.6-10.3 [facility] Comment on above: Performed By: #### C MP #### [address] Carbon dioxide, total [Moles /volume] in Serum or PlasmaOrdered By: Krzysztof Montesinos on 11-24-2023 CO2 [Moles/Vol] 25.4 mmol/L Normal 21.0-31.0 [facility] Comment on above: Performed By: #### C MP #### [place] [address] [place] Chloride [Moles/volume] in S delgado or PlasmaOrdered By: Krzysztof Montesinos on 11-24-2023 Chloride [Moles/Vol] 111 mmol/L High 98-107 [facility] Comment on above: Performed By: #### C MP #### [address] Comprehensive Metabolic Pane thomas 11-24-2023 Albumin [Mass/Vol] 4.3 g/dL Normal 3.5-5.7 [facility] Comment on above: Performed By: #### C MP #### [address] Creatinine Clr Calc Pharmacy 94.43 Normal [facility] Comment on above: Result Comment: PERF ORMED BY: [place] [address] PATHOLOGIST PUBLIC POLICY COORDINATOR MARGARITA CUELLAR M.D. Performed By: #### C MP #### [address] GFR/1.73 sq M.predicted MDRD (S/P/Bld) [Vol rate/Area] mL/min/{1.73_m2} Normal [facility] Comment on above: Performed By: #### C MP #### [address] Creatinine [Mass/volume] in Serum or PlasmaOrdered By: Krzysztof Montesinos on 11-24-2023 Creatinine [Mass/Vol] 0.86 mg/dL Normal 0.60-1.20 [facility] Comment on above: Performed By: #### C MP #### [address] Glucose [Mass/volume] in Ser um or PlasmaOrdered By: Krzysztof Montesinos on 11-24-2023 Glucose [Mass/Vol] 94 mg/dL Normal 70-100 [facility] Comment on above: ADA recommended refe rence rangeRandom Glucose Reference Range is dependent on time and content of last meal. Glucose of more than 200 mg/dL in a nonstressed, ambulatory subject supports the diagnosis of Diabetes Mellitus. Result Comment: [place] om Glucose Reference Range is dependent on time and content of last meal. Glucose of more than 200 mg/dL in a nonstressed, ambulatory subject supports the diagnosis of Diabetes Mellitus. ADA recommended reference range Performed By: #### C MP #### [address] No Panel InformationOrdered By: Krzysztof Montesinos on 11-24-2023 Estimated GFR (CKD-EPI) > 60.0 mL/Min [facility] Creatinine Clearance (Chem 94.43 [facility] Potassium [Moles/volume] in Serum or PlasmaOrdered By: Krzysztof Montesinos on 11-24-2023 Potassium [Moles/Vol] 4.7 mmol/L Normal 3.5-5.1 [facility] Comment on above: Performed By: #### C MP #### [address] Protein [Mass/volume] in Ser um or PlasmaOrdered By: Krzysztof Montesinos on 11-24-2023 Protein [Mass/Vol] 6.7 g/dL Normal 6.4-8.9 [facility] Comment on above: Performed By: #### C MP #### [address] Serum globulin measurement b y calculation (mass/volume)Ordered By: Krzysztof Montesinos on 11-24-2023 Globulin (S) [Mass/Vol] 2.4 g/dL Normal [facility] Comment on above: Performed By: #### C MP #### [address] Serum or plasma albumin/glob ulin mass ratioOrdered By: Krzysztof Montesinos on 11-24-2023 Albumin/Globulin [Mass ratio] 1.8 {ratio} Normal [facility] Comment on above: Performed By: #### C MP #### [address] Serum or plasma anion gap de terminationOrdered By: Krzystzof Montesinos on 11-24-2023 Anion gap [Moles/Vol] 9.3 mmol/L Normal 6.0-15.0 [facility] Comment on above: Performed By: #### C MP #### [place] [address] [place] Sodium [Moles/volume] in Ser um or PlasmaOrdered By: Krzysztof Montesinos on 11-24-2023 Sodium [Moles/Vol] 141 mmol/L Normal 136-145 [facility] Comment on above: Performed By: #### C MP #### [facility] [address] [place] [address] [place] Urea nitrogen [Mass/volume] in Serum or PlasmaOrdered By: Krzysztof Montesinos on 11-24-2023 Urea nitrogen [Mass/Vol] 12 mg/dL Normal 7-25 [facility] Comment on above: Performed By: #### C MP #### [facility] [address] [place] [address] [place] Cholesterol [Mass/volume] in Serum or PlasmaOrdered By: Krzysztof Montesinos on 11-23-2023 Cholesterol [Mass/Vol] 129 mg/dL Low 140-200 [facility] Comment on above: Chol less than 200 m g/dl low riskChol 201-239 mg/dl borderline riskChol 240 mg/dl and greater high risk Result Comment: Chol less than 200 mg/dl low risk Chol 201-239 mg/dl borderline risk Chol 240 mg/dl and greater high risk Performed By: #### L IPID, TSH3 wRFLX, [id number] #### [facility] [address] [place] [address] [place] Cholesterol in LDL Calc [Mas s/Vol]Ordered By: Krzysztof Montesinos on 11-23-2023 Cholesterol in LDL [Mass/Vol] 64 mg/dL 0-100 [facility] Comment on above: LDL ATP III CLASSIFI CATIONLDL less than 100 mg/dL OptimalLDL 100-129 mg/dL Near or above optimalLDL 130-159 mg/dL Borderline highLDL 160-189 mg/dL HighLDL greater than 189 mg/dL Very high Cholesterol in VLDL Calc [Ma ss/Vol]Ordered By: Krzysztof Montesinos on 11-23-2023 Cholesterol in VLDL [Mass/Vol] 7 mg/dL [facility] Lipid Panelon 11-23-2023 LDL Cholesterol,Calculated 64 mg/dL Normal 0-100 [facility] Comment on above: Result Comment: LDL ATP III CLASSIFICATION LDL less than 100 mg/dL Optimal LDL 100-129 mg/dL Near or above optimal LDL 130-159 mg/dL Borderline high LDL 160-189 mg/dL High LDL greater than 189 mg/dL Very high Performed By: #### L IPID, TSH3 wRFLX, [id number] #### [facility] [address] [place] [id number] [facility] Triglyceride w/Reflex 39 mg/dL Normal 0-149 [facility] Comment on above: Result Comment: TRIG ATP III CLASSIFICATION TRIG less than 150 mg/dL Normal TRIG 150-199 mg/dL Borderline high TRIG 200-500 mg/dL High TRIG greater than 500 mg/dL Very high Standard traceable to the Center for Disease Conrtrol and Prevention (CDC) test method. Performed By: #### L IPID, TSH3 wRFLX, [id number] #### [facility] [address] VLDL CHOLESTEROL 7 mg/dL Normal [facility] Comment on above: Performed By: #### L IPID, TSH3 wRFLX, [id number] #### [facility] [address] [place] [id number] [facility] Serum or plasma high density lipoprotein (HDL) cholesterol measurementOrdered By: Krzysztof Motnesinos on 11-23-2023 Cholesterol in HDL [Mass/Vol] 57 mg/dL Normal 23-92 [facility] Comment on above: HDL CHOL ATP-III CLA SSIFICATION Cardiovascular RiskHDL > or equal to 60 mg/dL LOWHDL < 40 mg/dL HIGH Result Comment: HDL CHOL ATP-III CLASSIFICATION Cardiovascular Risk HDL > or equal to 60 mg/dL LOW HDL < 40 mg/dL HIGH Performed By: #### L IPID, TSH3 wRFLX, [id number] #### [facility] [address] Serum or plasma total choles terol/high density lipoprotein (HDL) cholesterol mass ratOrdered By: Krzysztof Montesinos on 11-23-2023 Cholesterol.total/Choles terol in HDL [Mass ratio] 2.3 {ratio} Normal <5.0 [facility] Comment on above: Performed By: #### L IPID, TSH3 wRFLX, [id number] #### [address] Thyroid Stim Hormone w/Rflxo n 11-23-2023 Thyroid Stim Hormone w/Rflx 1.52 u[iU]/mL Normal 0.45-5.33 [facility] Comment on above: Performed By: #### L IPID, TSH3 wRFLX, [id number] #### [address] Thyrotropin [Units/volume] i n Serum or PlasmaOrdered By: Krzysztof Montesinos on 11-23-2023 TSH Qn 1.52 m[IU]/L 0.45-5.33 [facility] Triglyceride [Mass/volume] i n Serum or PlasmaOrdered By: Krzysztof Montesinos on 11-23-2023 Triglyceride [Mass/Vol] 39 mg/dL 0-149 [facility] Comment on above: TRIG ATP III CLASSIF ICATIONTRIG less than 150 mg/dL NormalTRIG 150-199 mg/dL Borderline highTRIG 200-500 mg/dL High TRIG greater than 500 mg/dL Very highStandard traceable to the Center for Disease Conrtrol and Prevention (CDC) test method. Vitamin D 25 Hydroxy Totalon 11-23-2023 Vitamin D 25 Hydroxy Total 23.9 ng/mL Low 30-100 [facility] Comment on above: Result Comment: NATE MIN D STATUS 25(OH)VITAMIN D RANGE (ng/mL) Deficient <20 Insufficient 20 to <30 Sufficient 30 to 100 Reference: Shanthi MF,Ysabel NC, Jia CABRERA, et al. Evaluation,treatment, and prevention of vitamin D deficiency; an Endocrine Society clinical practice guideline. JCEM. 2010; 96(7):1911-30. PERFORMED BY: [place] [address] PATHOLOGIST PUBLIC POLICY COORDINATOR MARGARITA CUELLAR M.D. Performed By: #### L IPID, TSH3 wRFLX, [id number] #### [address] Vitamin D+Metabolites [Mass/ volume] in Serum or PlasmaOrdered By: Krzysztof Montesinos on 11-23-2023 Vitamin D+Metabolites [Mass/Vol] 23.9 ng/mL Low 30-100 [facility] Comment on above: VITAMIN D STATUS 25( [place])VITAMIN D RANGE (ng/mL) Deficient <20 Insufficient 20 to <30Sufficient 30 to 100Reference: Shanthi MF,Ysabel PACKER, Jia CABRERA, et al. Evaluation,treatment, and prevention of vitamin D deficiency; an Endocrine Society clinical practice guideline. JCEM. 2010; 96(7):1911-30. BASIC METABOLIC PANLon 11-21 Anion gap [Moles/Vol] 6 mmol/L Normal 5-15 [facility] Comment on above: Performed By: #### C MIL CMP, #### [facility] ([id number]) [address] [place] [address], [place] [address] Calcium [Mass/Vol] 8.6 mg/dL Normal 8.5-10.[address] [facility] Comment on above: Performed By: #### C MIL [facility], #### [facility] ([id number]) [address] [place] [address] Chloride [Moles/Vol] 108 mmol/L Normal 98-109 [facility] Comment on above: Performed By: #### Manish BCA CMP, #### [facility] ([id number]) [address] [place] [address], [place] [address] CO2 [Moles/Vol] 22 mmol/L Normal 22-32 [facility] Comment on above: Performed By: #### C BCA CMP, #### [facility] ([id number]) [address] [place] [address] [place] [address] Creatinine [Mass/Vol] 0.84 mg/dL Normal 0.40-1.00 [facility] Comment on above: Result Comment: METH OD TRACEABLE TO IDMS STANDARD Performed By: #### C NIKA JAEGER, 47221-0 #### [facility] ([id number]) [address] [place] [address]44 eGFR (CKD-EPI) NON-RACE DEPENDENT >90 Normal >59 [facility] Comment on above: Result Comment: Reported eGFR is based on the CKD-EPI 2020 equation that does not use a race coefficient. Performed By: #### C NIKA JAEGER, #### [facility] ([id number]) [address] [place] [address]11 Glucose [Mass/Vol] 98 mg/dL Normal 65-[address] [facility] Comment on above: Performed By: #### C NIKA JAEGER, #### [facility] ([id number]) [address] [place] [address] Potassium [Moles/Vol] 3.3 mmol/L Low 3.5-5.0 [facility] Comment on above: Performed By: #### C NIKA JAEGER, #### [facility] ([id number]) [address] [place] [address] 44877 Sodium [Moles/Vol] 136 mmol/L Normal 134-[address] [facility] Comment on above: Performed By: #### C NIKA JAEGER, #### [facility] ([id number]) [address] [place] [address] 01591 Urea nitrogen [Mass/Vol] 14 mg/dL Normal 5-23 [facility] Comment on above: Performed By: #### C NIKA JAEGER, 33776-9 #### [facility] ([id number]) [address] [place] [address] 78643 CBC AND AUTO DIFFon 11-22-19 24 ABSOLUTE BASOPHIL 0.0 X10E9/L Normal 0.0-0.[address] [facility] Comment on above: Performed By: #### C MIL CMP, #### [facility] ([id number]) [address] [place] [address] ABSOLUTE NEUTROPHIL 5.3 X10E9/L Normal 1.5-6.6 [facility] Comment on above: Performed By: #### C BCA, CMP, #### [facility] ([id number]) [address] [place] [address] Basophils/100 WBC (Bld) 0.5 % Normal [facility] Comment on above: Performed By: #### C MIL, CMP, #### [facility] ([id number]) [address] [place] [address] Eosinophils (Bld) [#/Vol] 0.1 10*3/uL Normal 0.0-0.4 [facility] Comment on above: Performed By: #### C BCA, CMP, #### [facility] ([id number]) [address] [place] [address] 18218 Eosinophils/100 WBC (Bld) 0.7 % Normal [facility] Comment on above: Performed By: #### Manish JAEGER, CMP, #### [facility] ([id number]) [address] [place] [address]68 Erythrocyte distribution width (RBC) [Ratio] 14.2 % Normal 11.5-15.0 [facility] Comment on above: Performed By: #### C BCA, CMP, #### [facility] ([id number]) [address] [place] [address] 93735 Hematocrit (Bld) [Volume fraction] 41.6 % Normal 35-47 [facility] Comment on above: Performed By: #### C BCA, CMP, #### [facility] ([id number]) [address] [place] [address] 48423 Hemoglobin (Bld) [Mass/Vol] 14.3 g/dL Normal 11.7-15.5 [facility] Comment on above: Performed By: #### Manish JAEGER CMP, #### [facility] ([id number]) [address] [place] [address] 31754 Lymphocytes (Bld) [#/Vol] 1.8 10*3/uL Normal 1.0-3.5 [facility] Comment on above: Performed By: #### Manish JAEGER CMP, #### [facility] ([id number]) [address] [place] [address] 83877 Lymphocytes/100 WBC (Bld) 23.3 % Normal [facility] Comment on above: Performed By: #### Manish JAEGER CMP, #### [facility] ([id number]) [address] [place] [address] 11013 MCH (RBC) [Entitic mass] 30.6 pg Normal 27-34 [facility] Comment on above: Performed By: #### Manish JAEGER [facility], #### [facility] ([id number]) [address] [place] [address] 22830 MCHC (RBC) [Mass/Vol] 34.5 g/dL Normal 32-36 [facility] Comment on above: Performed By: #### Manish JAEGER CMP, #### [facility] ([id number]) [address] [place] [address] 92990 MCV (RBC) [Entitic vol] 89 fL Normal 80-100 [facility] Comment on above: Performed By: #### Manish JAEGER CMP, #### [facility] ([id number]) [address] [place] [address] 70008 Monocytes (Bld) [#/Vol] 0.5 10*3/uL Normal 0-0.9 [facility] Comment on above: Performed By: #### C NIKA JAEGER, #### [facility] ([id number]) [address] [place] [address] 56034 Monocytes/100 WBC (Bld) 6.6 % Normal [facility] Comment on above: Performed By: #### C NIKA JAEGER, #### [facility] ([id number]) [address] [place] [address] 31261 Neutrophils/100 WBC (Bld) 68.9 % Normal [facility] Comment on above: Performed By: #### Manish JAEGER CMP, #### [facility] ([id number]) [address] [place] [address] 84837 Platelet mean volume (Bld) [Entitic vol] 9.0 fL Normal 7-12 [facility] Comment on above: Performed By: #### Manish JAEGER CMP, #### [facility] ([id number]) [address] [place] [address] 23276 Platelets (Bld) [#/Vol] 186 10*3/uL Normal 150-450 [facility] Comment on above: Performed By: #### Manish JAEGER CMP, #### [facility] ([id number]) [address] [place] [address] 81405 RBC COUNT 4.68 X10E12/L Normal 3.80-5.20 [facility] Comment on above: Performed By: #### Manish JAEGER CMP, #### [facility] ([id number]) [address] [place] [address] 45558 WBC (Bld) [#/Vol] 7.7 10*3/uL Normal 4.0-11.[address] [facility] Comment on above: Performed By: #### C MIL, [facility], #### [facility] ([id number]) [address] [place] [address] 00102 DRUG SCREEN, URINEon 024 AMPHETAMINE/METHAMP Negative Normal NEG [facility] Comment on above: Result Comment: AMPH /METH screening cut off = 1000 ng/mL Performed By: #### C MIL, [facility], #### [facility] ([id number]) [address] [place] [address] 37649 BARBITURATES Negative Normal NEG [facility] Comment on above: Result Comment: Marcela iturates screening cut off value = 200 ng/mL Performed By: #### C MIL, [facility], #### [facility] ([id number]) [address] [place] [address] 53523 BENZODIAZEPINES Negative Normal NEG [facility] Comment on above: Result Comment: Jose odiazepines screening cut off value = 200 ng/mL Performed By: #### C MIL, [facility], #### [facility] ([id number]) [address] [place] [address] 87935 CANNABINOIDS Negative Normal NEG [facility] Comment on above: Result Comment: Tre abinoids/THC screening cut off value = 50 ng/mL Performed By: #### C MIL, [facility], #### [facility] ([id number]) [address] [place] [address] 89078 COCAINE METABOLITE Negative Normal NEG [facility] Comment on above: Result Comment: Coca ine screening cut off value = 300 ng/mL Performed By: #### C MIL, [facility], #### [facility] ([id number]) [address] [place] [address] 64148 ECSTASY Negative Normal NEG [facility] Comment on above: Result Comment: Ecst asy screening cut off value = 500 ng/mL This report is intended for use in clinical monitoring or management of patients. Performed By: #### C NIKA JAEGER, 12046-1 #### [facility] ([id number]) [address] [place] [address] 18946 METHADONE Negative Normal NEG [facility] Comment on above: Result Comment: Meth adone screening cut off value = 300 ng/mL. Performed By: #### C NIKA JAEGER, #### [facility] ([id number]) [address] [place] [address] 82079 OPIATES Negative Normal NEG [facility] Comment on above: Result Comment: Opia krys screening cut off value = 300 ng/mL NOTE: This test is used for the detection of codeine, hydrocodone (>1000 ng/mL), morphine and hydromorphone (>900 ng/mL) in urine. Performed By: #### C NIKA JAEGER, #### [facility] ([id number]) [address] [place] [address] 11290 OXYCODONE Negative Normal NEG [facility] Comment on above: Result Comment: Oxyc odone screening cut off value = 300 ng/mL NOTE: This test is used for the detection of oxycodone and oxymorphone in urine. Performed By: #### C NIKA JAEGER, #### [facility] ([id number]) [address] [place] [address] 32083 PHENCYCLIDINE Negative Normal NEG [facility] Comment on above: Result Comment: Phen cyclidine screening cut off value = 25 ng/mL Performed By: #### C NIKA JAEGER, #### [facility] ([id number]) [address] [place] [address] 47387 ECG 12 lead ECGon 11-22-2023 ECG 12 lead ECG [facility] [place] [address] Electrocardiograph Report Signed Patient: Bassam Collado MR#: [id number] : 2000 Acct:[id number] Age/Sex: 23 / F ADM Date: 11/22/23 Loc: Room: 3K3754-7 Type: ADM IN Attending Dr: Krzysztof Montesinos [...] Sinus rhythm with sinus arrhythmia with short RI Otherwise normal ECG No previous ECGs available Confirmed by HODAN ROBERT [facility], GEMA ([id number]) on 11/23/2023 9:57:14 AM Referred By: Electronically Signed By:GEMA SLAUGHTER MD [facility] Transcribed By: MUS Signed By Gema Slaughter MD, FACC 11/23/23 0957 Normal [facility] ETHANOLon 11-22-2023 Ethanol [Mass/Vol] mg/dL Normal 0.00-0.[address] [facility] Comment on above: Result Comment: This report is intended for use in clinical monitoring or management of patients. Performed By: #### C NIKA JAEGER, 16805-5 #### [facility] ([id number]) [address] [place] [address] 05472 HCG ( test) Ql (U)o n 11-22-2023 Beta HCG ( test) Ql (U) Negative Normal NEG [facility] Comment on above: Performed By: #### 2 106-3 #### [facility] ([id number]) [address] [place] [address] 69136 TSH Qnon 11-22-2023 TSH 1.42 uIU/mL Normal 0.49-4.67 [facility] Comment on above: Performed By: #### C NIKA JAEGER, 46126-7 #### [facility] ([id number]) [address] [place] [address] 04026 URN MACROSCOPIC NURon 2023 BILIRUBIN BAO Negative Normal NEG [facility] Comment on above: Performed By: #### N UM #### [facility] ([id number]) [address] [place] [address] 11676 BLOOD/HGB BAO Negative Normal NEG [facility] Comment on above: Performed By: #### N UM #### [facility] ([id number]) [address] [place] [address] 77438 GLUCOSE BAO Negative Normal NEG [facility] Comment on above: Performed By: #### N UM #### [facility] ([id number]) [address] [place] [address] [place] [address] KETONES BAO Negative Normal NEG [facility] Comment on above: Performed By: #### N UM #### [facility] ([id number]) [address] [place] [address] 64676 LEUKOCYTE ESTERASE BAO Negative Normal NEG [facility] Comment on above: Performed By: #### N UM #### [facility] ([id number]) [address] [place] [address] 63587 NITRITE BAO Negative Normal NEG [facility] Comment on above: Performed By: #### N UM #### [facility] ([id number]) [address] [place] [address] 12661 PH BAO 6.5 Normal 5.0-8.5 [facility] Comment on above: Performed By: #### N UM #### [facility] ([id number]) [address] [place] [address] 59430 PROTEIN BAO Negative Normal NEG [facility] Comment on above: Performed By: #### N UM #### [facility] ([id number]) [address] [facility], [place] [address] SPECIFIC GRAVITY BAO 1.010 Normal 1.003-1.035 [facility] Comment on above: Performed By: #### N UM #### [facility] ([id number]) [address] [facility], [place] [address] UROBILINOGEN BAO 0.2 eu/dL Normal <1.1 [facility] Comment on above: Performed By: #### N UM #### [facility] ([id number]) [address] [facility], [place] [address] HCG.beta subunit IA 3rd IS Q non 08-29-2023 SERUM B HCG,3RD I.S. <5 Normal [facility] Comment on above: Result Comment: NEW [...] neoplasms. Performed By: #### 2 0415-6 #### [facility] ([id number]) [address] [facility], [address] [place] [address] HCG.beta subunit IA 3rd IS Q non 08-22-2023 HCG.beta subunit Qn 11 m[IU]/mL Normal [facility] Comment on above: Result Comment: NEW [...] neoplasms. Performed By: #### 2 0415-6 #### [facility] ([id number]) [address] [place] [address], [address] [place] [address] HCG.beta subunit IA 3rd IS Q non 08-13-2023 HCG.beta subunit Qn 60 m[IU]/mL Normal [facility] Comment on above: Result Comment: NEW [...] neoplasms. Performed By: #### 2 0415-6 #### [facility] ([id number]) [address] [place] [address], [address] [place] [address] HCG.beta subunit IA 3rd IS Q non 08-06-2023 HCG.beta subunit Qn 394 m[IU]/mL Normal [facility] Comment on above: Result Comment: NEW [...] neoplasms. Performed By: #### 2 0415-6 #### [facility] ([id number]) [address] [place] [address], [address] [place] [address] CBC AND AUTO DIFFon 07-30-19 24 ABSOLUTE BASOPHIL 0.0 X10E9/L Normal 0.0-0.[address] [facility] Comment on above: Performed By: #### C MIL [facility], #### [facility] ([id number]) [address] [place] [address] 14254 ABSOLUTE NEUTROPHIL 6.4 X10E9/L Normal 1.5-6.6 [facility] Comment on above: Performed By: #### C MIL [facility], #### [facility] ([id number]) [address] [place] [address] 32421 Basophils/100 WBC (Bld) 0.5 % Normal [facility] Comment on above: Performed By: #### C MIL [facility], 24970-2 #### [facility] ([id number]) [address] [place] [address] 14613 Eosinophils (Bld) [#/Vol] 0.0 10*3/uL Normal 0.0-0.4 [facility] Comment on above: Performed By: #### C NIKA JAEGER, #### [facility] ([id number]) [address] [place] [address] 63196 Eosinophils/100 WBC (Bld) 0.2 % Normal [facility] Comment on above: Performed By: #### C MIL [facility], #### [facility] ([id number]) [address] [place] [address] 82213 Erythrocyte distribution width (RBC) [Ratio] 14.2 % Normal 11.5-15.0 [facility] Comment on above: Performed By: #### C NIKA JAEGER, #### [facility] ([id number]) [address] [place] [address] 65225 Hematocrit (Bld) [Volume fraction] 43.4 % Normal 35-47 [facility] Comment on above: Performed By: #### C MIL [facility], #### [facility] ([id number]) [address] [place] [address] 84150 Hemoglobin (Bld) [Mass/Vol] 14.9 g/dL Normal 11.7-15.5 [facility] Comment on above: Performed By: #### C MIL [facility], #### [facility] ([id number]) [address] [place] [address] 81289 Lymphocytes (Bld) [#/Vol] 1.4 10*3/uL Normal 1.0-3.5 [facility] Comment on above: Performed By: #### C NIKA JAEGER, #### [facility] ([id number]) [address] [place] [address] 19991 Lymphocytes/100 WBC (Bld) 16.3 % Normal [facility] Comment on above: Performed By: #### C BCA, CMP, #### [facility] ([id number]) [address] [place] [address] 39444 MCH (RBC) [Entitic mass] 30.9 pg Normal 27-34 [facility] Comment on above: Performed By: #### C BCA, CMP, #### [facility] ([id number]) [address] [place] [address] 40845 MCHC (RBC) [Mass/Vol] 34.4 g/dL Normal 32-36 [facility] Comment on above: Performed By: #### C MIL, CMP, #### [facility] ([id number]) [address] [place] [address] 62585 MCV (RBC) [Entitic vol] 90 fL Normal 80-100 [facility] Comment on above: Performed By: #### Manish BCA, CMP, #### [facility] ([id number]) [address] [place] [address] 57648 Monocytes (Bld) [#/Vol] 0.7 10*3/uL Normal 0-0.9 [facility] Comment on above: Performed By: #### C MIL, CMP, #### [facility] ([id number]) [address] [place] [address] 95703 Monocytes/100 WBC (Bld) 7.8 % Normal [facility] Comment on above: Performed By: #### C BCA, CMP, #### [facility] ([id number]) [address] [place] [address] [id number] Neutrophils/100 WBC (Bld) 75.2 % Normal [facility] Comment on above: Performed By: #### C BCA, CMP, #### [facility] ([id number]) [address] [place] [address] Platelet mean volume (Bld) [Entitic vol] 8.5 fL Normal 7-12 [facility] Comment on above: Performed By: #### C MIL, CMP, #### [facility] ([id number]) [address] [place] [address] 61354 Platelets (Bld) [#/Vol] 188 10*3/uL Normal 150-450 [facility] Comment on above: Performed By: #### C MIL, CMP, #### [facility] ([id number]) [address] [place] [address] 49765 RBC COUNT 4.83 X10E12/L Normal 3.80-5.20 [facility] Comment on above: Performed By: #### C MIL, CMP, #### [facility] ([id number]) [address] [place] [address] 06742 WBC (Bld) [#/Vol] 8.5 10*3/uL Normal 4.0-11.[address] [facility] Comment on above: Performed By: #### C BCA, CMP, #### [facility] ([id number]) [address] [place] [address] 46913 COMPREHENSIVE METABOLIC PANE Thomas 07-30-2023 Albumin [Mass/Vol] 4.7 g/dL Normal 3.2-5.[address] [facility] Comment on above: Performed By: #### C BCA, CMP, #### [facility] ([id number]) [address] [place] [address] 04255 ALP [Catalytic activity/Vol] 57 U/L Normal 39-130 [facility] Comment on above: Performed By: #### C BCA, CMP, #### [facility] ([id number]) [address] [place] [address] 60449 ALT [Catalytic activity/Vol] 12 U/L Normal 0-31 [facility] Comment on above: Performed By: #### C NIKA JAEGER, #### [facility] ([id number]) [address] [place] [address] 82537 Anion gap [Moles/Vol] 6 mmol/L Normal 5-15 [facility] Comment on above: Performed By: #### C NIKA JAEGER, #### [facility] ([id number]) [address] [place] [address] 50914 AST [Catalytic activity/Vol] 18 U/L Normal 0-41 [facility] Comment on above: Performed By: #### C NIKA JAEGER, #### [facility] ([id number]) [address] [place] [address] 63591 Bilirubin [Mass/Vol] 0.8 mg/dL Normal 0.3-1.2 [facility] Comment on above: Performed By: #### C NIKA JAEGER, #### [facility] ([id number]) [address] [place] [address] 13560 Calcium [Mass/Vol] 9.4 mg/dL Normal 8.5-10.[address] [facility] Comment on above: Performed By: #### C NIKA JAEGER, #### [facility] ([id number]) [address] [place] [address] 76755 Chloride [Moles/Vol] 107 mmol/L Normal 98-109 [facility] Comment on above: Performed By: #### C MIL CMP, #### [facility] ([id number]) [address] [place] [address] 50358 CO2 [Moles/Vol] 23 mmol/L Normal 22-32 [facility] Comment on above: Performed By: #### C MIL CMP, #### [facility] ([id number]) [address] [place] [address] 57808 Creatinine [Mass/Vol] 0.63 mg/dL Normal 0.40-1.00 [facility] Comment on above: Result Comment: METH OD TRACEABLE TO IDMS STANDARD Performed By: #### C NIKA JAEGER, #### [facility] ([id number]) [address] [place] [address] 59136 eGFR (CKD-EPI) NON-RACE DEPENDENT >90 Normal >59 [facility] Comment on above: Result Comment: Reported eGFR is based on the CKD-EPI 2020 equation that does not use a race coefficient. Performed By: #### C NIKA JAEGER, #### [facility] ([id number]) [address] [place] [address] 96541 Glucose [Mass/Vol] 92 mg/dL Normal 65-[address] [facility] Comment on above: Performed By: #### Manish JAEGER CMP, #### [facility] ([id number]) [address] [place] [address] 18698 Potassium [Moles/Vol] 3.5 mmol/L Normal 3.5-5.0 [facility] Comment on above: Performed By: #### C NIKA JAEGER, #### [facility] ([id number]) [address] [place] [address] 30614 Protein [Mass/Vol] 7.8 g/dL Normal 6.0-8.[address] [facility] Comment on above: Performed By: #### C NIKA JAEGER, #### [facility] ([id number]) [address] [place] [address] 83425 Sodium [Moles/Vol] 136 mmol/L Normal 134-[address] [facility] Comment on above: Performed By: #### C NIKA JAEGER, #### [facility] ([id number]) [address] [place] [address] 60306 Urea nitrogen [Mass/Vol] 12 mg/dL Normal 5-23 [facility] Comment on above: Performed By: #### C NIKA JAEGER, [id number] #### [facility] ([id number]) [address] [place] [address] 15974 HCG.beta subunit IA 3rd IS Q non 07-30-2023 [place] [address] m[IU]/mL Normal P [facility] Comment on above: Result Comment: NEW [...] or nontrophoblastic neoplasms. Performed By: #### C NIKA JAEGER, #### [facility] ([id number]) [address] [place] [address] 21172 US PREG LESS THAN 14 WKS WIT [...] Rodrigues MD on 07/30/2023 2:51 PM Normal [facility] US ABDOMEN LIMITEDon 024 US ABDOMEN LIMITED EXAMINATION: LIMITED ABDOMINAL ULTRASOUND 05/29/2023 9:27 am COMPARISON: None. HISTORY: ORDERING SYSTEM PROVIDED HISTORY: Abdominal mass, right lower quadrant TECHNOLOGIST PROVIDED HISTORY: This procedure can be scheduled via [employer]. Access your [employer] account by visiting [employer]. RUQ lump with straining or sitting up. [...] Zay Boyce MD 05/29/23 Final result Normal [facility] CBC WITH DIFFon 02-24-2023 ABS BASOPHIL 0.04 x10^3ul Normal (0.00 - 0.16) [facility] Comment on above: Order Comment: FACIL ITY: [facility] [id number] Performed By: #### C BC/D, CHEM-C, TSHT34, B12+, MG #### [facility] [address] [facility], [address] ABS EOSINOPHIL 0.08 x10^3ul Normal (0.00 - 0.40) [facility] Comment on above: Order Comment: FACIL ITY: [facility] [id number] Performed By: #### C BC/D, CHEM-C, TSHT34, B12+, MG #### [facility] [address] [place], [address] ABS IMMATURE GRANS 0.01 x10^3ul Normal (0.00 - 0.11) [place] Comment on above: Order Comment: FACIL ITY: [facility] - [facility] [id number] Performed By: #### C BC/D, CHEM-C, TSHT34, B12+, MG #### [facility] [address] [facility], [address] ABS LYMPHOCYTE 2.28 x10^3ul Normal (0.96 - 5.40) [place] Comment on above: Order Comment: FACIL ITY: [facility] [id number] Performed By: #### C BC/D, CHEM-C, TSHT34, B12+, MG #### [facility] [address] [facility], [address] ABS MONOCYTE 0.70 x10^3ul Normal (0.10 - 1.00) [place] Comment on above: Order Comment: FACIL ITY: [facility] [id number] Performed By: #### C BC/D, CHEM-C, TSHT34, B12+, MG #### [facility] [address] [facility], [address] ABS NEUTROPHIL 3.91 x10^3ul Normal (1.50 - 7.00) [place] Comment on above: Order Comment: FACIL ITY: [facility] [id number] Performed By: #### C BC/D, CHEM-C, TSHT34, B12+, MG #### [facility] [address] [place], [address] Basophils/100 WBC (Bld) 0.6 % Normal () [facility] Comment on above: Order Comment: FACIL ITY: [facility] [id number] Performed By: #### C BC/D, CHEM-C, TSHT34, B12+, MG #### [facility] [address] [place], [address] Eosinophils/100 WBC (Bld) 1.1 % Normal () [facility] Comment on above: Order Comment: FACIL ITY: [facility] [id number] Performed By: #### C BC/D, CHEM-C, TSHT34, B12+, MG #### [facility] [address] [place], [address] Hematocrit (Bld) [Volume fraction] 46.1 % Normal (37.0 - 47.0) [facility] Comment on above: Order Comment: [facility] [id number] Performed By: #### C BC/D, CHEM-C, TSHT34, B12+, MG #### [facility] [address] [place], [address] Hemoglobin (Bld) [Mass/Vol] 15.3 g/dL Normal (12.0 - 16.0) [facility] Comment on above: Order Comment: FACIL ITY: [facility] [id number] Performed By: #### C BC/D, CHEM-C, TSHT34, B12+, MG #### [place] [facility] [address] [place], [address] IMMATURE GRANS (IG) 0.1 % Normal () [facility] Comment on above: Order Comment: FACIL ITY: [facility] [id number] Performed By: #### C BC/D, CHEM-C, TSHT34, B12+, MG #### [place] [facility] [address] [place], [address] LYMPS 32.5 % Normal () [facility] Comment on above: Order Comment: FACIL ITY: [facility] [id number] Performed By: #### C BC/D, CHEM-C, TSHT34, B12+, MG #### [place] [facility] [address] [place], [address] MCH (RBC) [Entitic mass] 30.5 pg Normal (27 .0 - 33.0) [facility] Comment on above: Order Comment: [facility]ACIL ITY[facility] [id number] Performed By: #### C BC/D, CHEM-C, TSHT34, B12+, MG #### [facility] [address] [place], [address] MCHC (RBC) [Mass/Vol] 33.2 g/dL Normal (30.0 - 37.0) [place] Comment on above: Order Comment: FACIL ITY: [facility] [id number] Performed By: #### C BC/D, CHEM-C, TSHT34, B12+, MG #### [facility] [address] [place], [address] MCV (RBC) [Entitic vol] 92.0 fL Normal (81. 0 - 99.0) [facility] Comment on above: Order Comment: FACIL ITY[facility] [id number] Performed By: #### C BC/D, CHEM-C, TSHT34, B12+, MG #### [place] [facility] [address] [place], [address] MONOS 10.0 % Normal () [facility] Comment on above: Order Comment: FACIL ITY[facility] [id number] Performed By: #### C BC/D, CHEM-C, TSHT34, B12+, MG #### [place] [facility] [address] [place], [address] PLT 201 x10^3ul Normal (130 - 400) [place] [facility] Comment on above: Order Comment: FACIL ITY[facility] [id number] Performed By: #### C BC/D, CHEM-C, TSHT34, B12+, MG #### [place] [facility] [address] [place], [address] RBC 5.01 x10^6ul Normal (4.20 - 5.40) [facility] Comment on above: Order Comment: FACIL ITY[facility] [id number] Performed By: #### C BC/D, CHEM-C, TSHT34, B12+, MG #### [place] [facility] [address] [place], [address] RDW-SD 46.7 fl Normal (37.0 - 49.0) [facility] Comment on above: Order Comment: FACIL ITY: [facility] [id number] Performed By: #### C BC/D, CHEM-C, TSHT34, B12+, MG #### [place] [facility] [address] [place], [address] SEGS 55.7 % Normal () [place] Comment on above: Order Comment: FACIL ITY[facility] [id number] Performed By: #### C BC/D, CHEM-C, TSHT34, B12+, MG #### [facility] [address] [place], [address] WBC 7.02 x10^3ul Normal (3.80 - 10.60) [facility] Comment on above: Order Comment: FACIL ITY: [facility] [id number] Performed By: #### C BC/D, CHEM-C, TSHT34, B12+, MG #### [facility] [address] [place], [address] COMP METABOLIC PANEL W/GFRon 02-24-2023 Albumin [Mass/Vol] 4.8 g/dL Normal (3.5 - 5.0) [facility] Comment on above: Performed By: #### C BC/D, CHEM-C, TSHT34, B12+, MG #### [place] [facility] [address] [place], [address] ALK PHOS 63 U/L Normal (38 - 126) [place] [facility] Comment on above: Performed By: #### C BC/D, CHEM-C, TSHT34, B12+, MG #### [place] [facility] [address] [place], [address] ALT [Catalytic activity/Vol] 18 U/L Normal (1 - 35) [place] [facility] Comment on above: Performed By: #### C BC/D, CHEM-C, TSHT34, B12+, MG #### [place] [facility] [address] [place], [address] AST [Catalytic activity/Vol] 22 U/L Normal (15 - 46) [facility] Comment on above: Performed By: #### C BC/D, CHEM-C, TSHT34, B12+, MG #### [facility] [address] [place], [address] Bilirubin [Mass/Vol] 1.0 mg/dL Normal (0.2 - 1.3) [facility] Comment on above: Performed By: #### C BC/D, CHEM-C, TSHT34, B12+, MG #### [facility] [address] [place], [address] Calcium [Mass/Vol] 9.6 mg/dL Normal (8.6 - 10.6) [facility] Comment on above: Performed By: #### C BC/D, CHEM-C, TSHT34, B12+, MG #### [facility] [address] [place], [address] Chloride [Moles/Vol] 105 mmol/L Normal (98 - 107) [facility] Comment on above: Performed By: #### C BC/D, CHEM-C, TSHT34, B12+, MG #### [facility] [address] [place], [address] CO2 [Moles/Vol] 24 mmol/L Normal (22 - 30) [facility] Comment on above: Performed By: #### C BC/D, CHEM-C, TSHT34, B12+, MG #### [facility] [address] [place], [address] Creatinine [Mass/Vol] 0.67 mg/dL Normal (0.52 - 1.04) [facility] Comment on above: Performed By: #### C BC/D, CHEM-C, TSHT34, B12+, MG #### [place] [facility] [address] [place], [address] GFR- AMER 132.0 ML/M1.7 Normal (60.0 - 140.1) [facility] Comment on above: Performed By: #### C BC/D, CHEM-C, TSHT34, B12+, MG #### [place] [facility] [address] [place], [address] GFR-NON AFRIC-AMER 109.1 ML/M1.7 Normal (60.0 - 115.8) [facility] Comment on above: Performed By: #### C BC/D, CHEM-C, TSHT34, B12+, MG #### [facility] [address] [place], [address] Glucose [Mass/Vol] 76 mg/dL Normal (74 - 106) [facility] Comment on above: Performed By: #### C BC/D, CHEM-C, TSHT34, B12+, MG #### [facility] [address] [place], [address] Potassium [Moles/Vol] 4.0 mmol/L Normal (3.5 - 5.1) To [facility] Comment on above: Performed By: #### C BC/D, CHEM-C, TSHT34, B12+, MG #### [place] [facility] [address] [place], [address] Protein [Mass/Vol] 7.5 g/dL Normal (6.3 - 8.2) [facility] Comment on above: Performed By: #### C BC/D, CHEM-C, TSHT34, B12+, MG #### [facility] [address] [place], [address] Sodium [Moles/Vol] 143 mmol/L Normal (137 - 145) [facility] Comment on above: Performed By: #### C BC/D, CHEM-C, TSHT34, B12+, MG #### [facility] [address] [place], [address] Urea nitrogen [Mass/Vol] 12 mg/dL Normal (7 - 17) [facility] Comment on above: Performed By: #### C BC/D, CHEM-C, TSHT34, B12+, MG #### [facility] [address] [place], [address] MAGNESIUMon 02-24-2023 Magnesium [Mass/Vol] 1.8 mg/dL Normal (1.6 - 2.3) [facility] Comment on above: Performed By: #### C BC/D, CHEM-C, TSHT34, B12+, MG #### [facility] [address] [place], [address] T3 FREE, T4 FREE AND TSHon 1 Free T3 [Mass/Vol] 5.32 pg/mL Normal (2.32 - 6.09) [facility] Comment on above: Performed By: #### C BC/D, CHEM-C, TSHT34, B12+, MG #### [facility] [address] [place], [address] Free T4 [Mass/Vol] 1.45 ng/dL Normal (0.78 - 2.35) [facility] Comment on above: Performed By: #### C BC/D, CHEM-C, TSHT34, B12+, MG #### [place] [facility] [address] [place], [address] TSH Qn 1.43 m[IU]/L Normal (0.470 - 4.680) [place] Comment on above: Performed By: #### C BC/D, CHEM-C, TSHT34, B12+, MG #### [place] [facility] [address] [facility], [address] VIT B12 AND FOLATEon 023 Cobalamin (Vitamin B12) [Mass/Vol] 653 pg/mL Normal (239 - 931) [place] Comment on above: Performed By: #### C BC/D, CHEM-C, TSHT34, B12+, MG #### [place] [facility] [address] [place], [address] FOLIC ACID >20.0 High (2.8 - 20.0) [place] [facility] Comment on above: Performed By: #### C BC/D, CHEM-C, TSHT34, B12+, MG #### [place] [facility] [address] [facility], [address] HCG, ,Urineon 11-14 Beta HCG ( test) Ql (U) Negative Normal NEG [facility] Comment on above: Performed By: #### U HCG #### [facility] [address] [place] [address] Database Designer: Natasha Bragg MD Surgical Pathologyon 023 Surgical Pathology (NOTE) Path Number: [id number] -- Diagnosis -- TERMINAL ILEUM, BIOPSY: -UNREMARKABLE SMALL INTESTINAL MUCOSA WITH NO SIGNIFICANT INFLAMMATION. Natasha Bragg M.D Electronically Signed Out 11/18/2022 Clinical Information Pre-Op Diagnosis: HEMORRHAGE OF RECTUM AND ANUS Operative Findings: TERMINAL ILEUM BIOPSIES Operation Performed: COLONOSCOPY BIOPSY/STOMA cd Source of Specimen A: TERMINAL ILEUM BIOPSY Gross Description JORDAN COLLADO, TERMINAL ILEUM BIOPSIES Received in formalin is one soft montano fragment, 0.3 x 0.2 x 0.1 cm. Entirely 1cs. jj cd Microscopic Description Microscopic examination performed. Processing Lab: [facility] [address] [place] [address] Interpretation Performed at [facility] [address] [place], [place] [address] SURGICAL PATHOLOGY CONSULTATION Patient Name: BASSAM COLLADO [facility] Rec: [id number] [facility] ANATOMIC PATHOLOGY [address] [place] [id number] Normal [facility] Comment on above: Performed By: #### P PPVS #### [facility] [address] [place] [address] Database Designer: Alex Deleon MD Calprotectin, Fecalon 2022 Calprotectin, Fecal 7 ug/g Normal <=49 [facility] Comment on above: Result Comment: (NOT E) REFERENCE INTERVAL: Calprotectin, Fecal by Immunoassay Less than 50 ug/g.........Normal 50-120 ug/g...............Borderline elevated, test should be re-evaluated in 4-6 weeks. 121 ug/g or greater.......Elevated Performed By: [facility] [address] [place] [address] Binder Caser: Louie Kidd MD, PhD Performed By: #### A CALPF #### [facility] [address] [place] [address] Database Designer: Jesu Farley MD Celiac Disease Panelon 10-24 Gliadin Deam Pep IgA 0.5 U/mL Normal <7.0 [facility] Comment on above: Result Comment: CELIAC INTERPRETATION <7.0 Negative 7.0-10.0 Equivocal >10.0 Positive units: U/mL Performed By: #### C ELP #### [address] [address] Database Designer: Alex Deleon MD Gliadin Deam Pep IgG <0.4 Normal <7.0 [facility] Comment on above: Result Comment: CELIAC INTERPRETATION <7.0 Negative 7.0-10.0 Equivocal >10.0 Positive units: U/mL Performed By: #### C ELP #### [address] [facility] [address] [place] [address] Database Designer: Alex Deleon MD Tiss Transglutam IgA <0.1 Normal <7.0 [facility] Comment on above: Result Comment: CELIAC INTERPRETATION <7.0 Negative 7.0-10.0 Equivocal >10.0 Positive units: U/mL Performed By: #### C ELP #### [address] [address] Database Designer: Alex Deleon MD IgA [Mass/Vol] 132 mg/dL Normal 70-400 [facility] Comment on above: Performed By: #### C ELP #### [address] [address] Database Designer: Alex Deleon MD AEROBIC CULTURE AND SENSITIV ITYon 10-07-2022 AMPICILLIN N/A Normal () [facility] Comment on above: Order Comment: FACIL ITY: [facility] [id number] Performed By: #### C -M75 #### [facility] [address] [facility], [address] CEFOXITIN SCREEN Negative Normal () [facility] Comment on above: Order Comment: FACIL ITY[facility] [id number] Performed By: #### C -M75 #### [facility] [address] [facility], [address] CIPROFLOXACIN S Normal () [facility] Comment on above: Order Comment: FACIL ITY: [facility] [id number] Performed By: #### C -M75 #### [facility] [address] [facility], [address] CLINDAMYCIN S Normal () [facility] Comment on above: Order Comment: FACIL ITY: [facility] [id number] Performed By: #### C -M75 #### [facility] [address] [facility], [address] CULTURE, AEROBIC SENS Normal (SEE - REPOR) [facility] Comment on above: Order Comment: FACIL ITY: [facility] [id number] Performed By: #### C -M75 #### [facility] [address] [facility], [address] DAPTOMYCIN S Normal () [facility] Comment on above: Order Comment: FACIL ITY: [facility] [id number] Performed By: #### C -M75 #### [facility] [address] [facility], [address] DOXYCYCLINE I Normal () [facility] Comment on above: Order Comment: FACIL ITY: [facility] [id number] Performed By: #### C -M75 #### [facility] [address] [facility], [address] ERYTHROMYCIN R High () [facility] Comment on above: Order Comment: FACIL ITY: [facility] [id number] Performed By: #### C -M75 #### [facility] [address] [facility], [address] GENTAMICIN S Normal () [facility] Comment on above: Order Comment: FACIL ITY: [facility] [id number] Performed By: #### C -M75 #### [facility] [address] [facility], [address] GENTAMICIN HIGH LEVEL N/A Normal () [facility] Comment on above: Order Comment: FACIL ITY: [facility] [id number] Performed By: #### C -M75 #### [facility] [address] [place], [address] INDUCIBLE CLINDAMYCIN RESISTANCE Negative Normal () [facility] Comment on above: Order Comment: FACIL ITY: [facility] [id number] Performed By: #### C -M75 #### [facility] [address] [place], [address] LEVOFLOXACIN S Normal () [facility] Comment on above: Order Comment: FACIL ITY: [facility] [id number] Performed By: #### C -M75 #### [facility] [address] [place], [address] LINEZOLID S Normal () [facility] Comment on above: Order Comment: FACIL ITY: [facility] [id number] Performed By: #### C -M75 #### [facility] [address] [place], [address] MOXIFLOXACIN S Normal () [facility] Comment on above: Order Comment: FACIL ITY: [facility] [id number] Performed By: #### C -M75 #### [facility] [address] [place], [address] NITROFURANTOIN S Normal () [facility] Comment on above: Order Comment: FACIL ITY: [facility] [id number] Performed By: #### C -M75 #### [facility] [address] [place], [address] OXACILLIN S Normal () [facility] Comment on above: Order Comment: FACIL ITY: [facility] [id number] Performed By: #### C -M75 #### [facility] [address] [place], [address] REPORT STATUS FINAL Normal () [facility] Comment on above: Order Comment: FACIL ITY: [facility] [id number] Result Comment: SOUR CE: NO SOURCE INDICATED GROWTH: FEW ISOLATE: STAPHYLOCOCCUS EPIDERMIDIS SENSITIVITY INTERPRETATION S = SUSCEPTIBLE R = RESISTANT I = INTERMEDIATE N/A = NOT APPLICABLE Performed By: #### C -M75 #### [facility] [address] [place], [address] RIFAMPICIN S Normal () [facility] Comment on above: Order Comment: FACIL ITY: [facility] [id number] Performed By: #### C -M75 #### [facility] [address] [place], [address] STREPTOMYCIN HIGH LEVEL N/A Normal () [facility] Comment on above: Order Comment: FACIL ITY[facility] [id number] Performed By: #### C -M75 #### [place] [facility] [address] [place], [address] TETRACYCLINE R High () [facility] Comment on above: Order Comment: FACIL ITY: [facility] [id number] Performed By: #### C -M75 #### [facility] [address] [place], [address] TIGECYCLINE S Normal () [facility] Comment on above: Order Comment: FACIL ITY: [facility] [id number] Performed By: #### C -M75 #### [facility] [address] [place], [address] TRIMETH/SULFA S Normal () [facility] Comment on above: Order Comment: FACIL ITY: [facility] [id number] Performed By: #### C -M75 #### [facility] [address] [place], [address] VANCOMYCIN S Normal () [facility] Comment on above: Order Comment: FACIL ITY: [facility] [id number] Performed By: #### C -M75 #### [facility] [address] [facility], [address] BNPon 08-07-2022 Natriuretic peptide B (Bld) [Mass/Vol] 23.0 pg/mL Normal <=450.0 [facility] Comment on above: Performed By: #### H STROPN, BNP, BMP #### [facility] [address] [place] [address] Dr. Anette Siddiqui CBC AUTO DIFFon 08-07-2022 BASO # 0.0 103/ul Normal 0.0-0.1 [facility] Comment on above: Performed By: #### C BC #### [facility] [address] [place] [address] Dr. Anette Siddiqui Basophils/100 WBC (Bld) 0.4 % Normal 0.2-2.0 [facility] Comment on above: Performed By: #### C BC #### [facility] [address] [place] [address] Dr. Anette Siddiqui EO # 0.1 103/ul Normal 0.0-0.7 [facility] Comment on above: Performed By: #### C BC #### [facility] [address] [place] [address] Dr. Anette Siddiqui Eosinophils/100 WBC (Bld) 1.0 % Normal 0.9-7.0 [facility] Comment on above: Performed By: #### C BC #### [facility] [address] [place] [address] Dr. Anette Siddiqui Erythrocyte distribution width (RBC) [Ratio] 13.3 % Normal 11.0-15.0 [facility] Comment on above: Performed By: #### C BC #### [facility] [address] [place] [address] Dr. Anette Siddiqui Hematocrit (Bld) [Volume fraction] 42.2 % Normal 36.0-48.0 [facility] Comment on above: Performed By: #### C BC #### [facility] [address] [place] [address] Dr. Anette Siddiqui Hemoglobin (Bld) [Mass/Vol] 14.2 g/dL Normal 12.0-16.0 [facility] Comment on above: Performed By: #### C BC #### [facility] [address] [place] [address] Dr. Anette Sididqui IG # 0.02 10e3/ul Normal 0.00-0.03 [facility] Comment on above: Performed By: #### C BC #### [facility] [address] [place] [address] Dr. Anette Siddiqui IG % 0.3 % Normal 0.0-0.5 [facility] Comment on above: Performed By: #### C BC #### [facility] [address] [place] [address] Dr. Anette Siddiqui LYMPH # 1.9 103/ul Normal 1.2-3.8 [facility] Comment on above: Performed By: #### C BC #### [facility] [address] [place] [address] Dr. Anette Siddiqui Lymphocytes/100 WBC (Bld) 24.8 % Normal 20.5-60.0 [facility] Comment on above: Performed By: #### C BC #### [facility] [address] [place] [address] Dr. Anette Siddiqui MANUAL DIFF REQ NO Normal [facility] Comment on above: Performed By: #### C BC #### [facility] [address] [place] [address] Dr. Anette Siddiqui MCH (RBC) [Entitic mass] 30.5 pg Normal 26.7-34.0 [facility] Comment on above: Performed By: #### C BC #### [facility] [address] [place] [address] Dr. Anette Siddiqui MCHC (RBC) [Mass/Vol] 33.6 g/dL Normal 29.9-35.2 [facility] Comment on above: Performed By: #### C BC #### [facility] [address] [place] [address] Dr. Anette Siddiqui MCV (RBC) [Entitic vol] 90.8 fL Normal 81.0-99.0 [facility] Comment on above: Performed By: #### C BC #### [facility] [address] [place] [address] Dr. Anette Siddiqui MONO # 0.6 103/ul Normal 0.3-0.8 [facility] Comment on above: Performed By: #### C BC #### [facility] [address] [place] [address] Dr. Anette Siddiqui Monocytes/100 WBC (Bld) 7.7 % Normal 1.7-12.0 [facility] Comment on above: Performed By: #### C BC #### [facility] [address] [place] [address] Dr. Anette Siddiqui NEUT # 5.0 103/ul Normal 1.4-6.5 [facility] Comment on above: Performed By: #### C BC #### [facility] [address] [place] [address] Dr. Anette Siddiqui Neutrophils/100 WBC (Bld) 65.8 % Normal 43.0-75.0 [facility] Comment on above: Performed By: #### C BC #### [facility] [address] [place] [address] Dr. Anette Siddiqui Platelet mean volume (Bld) [Entitic vol] 10.3 fL Normal 9.5-13.5 [facility] Comment on above: Performed By: #### C BC #### [facility] [address] [place] [address] Dr. Anette Siddiqui PLT 186 103/ul Normal 150-450 [facility] Comment on above: Performed By: #### C BC #### [facility] [address] [place] [address] Dr. Anette Siddiqui RBC 4.65 106/ul Normal 4.20-5.40 [facility] Comment on above: Performed By: #### C BC #### [facility] [address] [place] [address] Dr. Anette Siddiqui WBC 7.6 103/ul Normal 4.0-11.0 [facility] Comment on above: Performed By: #### C BC #### [facility] [address] [address] [address] Anette Siddiqui PREG HCG QUALon 08-07-2022 , QUAL Negative Normal NEGATIVE [facility] Comment on above: Performed By: #### P TT, PT #### [facility] [address] [address] [address] Anette Siddiqui PROF CHEM 8 (BAS METB)on Anion gap [Moles/Vol] 14.8 mmol/L Normal [facility] Comment on above: Performed By: #### H STROPN, BNP, BMP #### [facility] [address] [place] [address] Dr. Anette Siddiqui Calcium [Mass/Vol] 8.8 mg/dL Normal 8.5-10.1 [facility] Comment on above: Performed By: #### H STROPN, BNP, BMP #### [facility] [address] [place] [address] Dr. Anette Siddiqui Chloride [Moles/Vol] 105 mmol/L Normal 98-107 [facility] Comment on above: Performed By: #### H STROPN, BNP, BMP #### [facility] [address] [place] [address] Dr. Anette Siddiqui CO2 [Moles/Vol] 24.0 mmol/L Normal 21.0-32.0 [facility] Comment on above: Performed By: #### H STROPN, BNP, BMP #### [facility] [address] [place] [address] Dr. Anette Siddiqui Creatinine [Mass/Vol] 0.71 mg/dL Normal 0.55-1.02 [facility] Comment on above: Performed By: #### H STROPN, BNP, BMP #### [facility] [address] [place] [address] Dr. Anette Siddiqui EGFR-AF GEORGIAN >60 Normal >=60 [facility] Comment on above: Performed By: #### H STROPN, BNP, BMP #### [facility] [address] [address] [address] Anette Siddiqui EGFR-NON AF GEORGIAN >60 Normal >=60 [facility] Comment on above: Performed By: #### H STROPN, BNP, BMP #### [facility] [address] [address] [address] Anette Siddiqui Glucose [Mass/Vol] 99 mg/dL Normal 74-106 [facility] Comment on above: Performed By: #### H STROPN, BNP, BMP #### [facility] [address] [place] [address] Dr. Anette Siddiqui Potassium [Moles/Vol] 3.8 mmol/L Normal 3.5-5.1 [facility] Comment on above: Performed By: #### H STROPN, BNP, BMP #### [facility] [address] [address] [address] Anette Siddiqui Sodium [Moles/Vol] 140 mmol/L Normal 136-145 [facility] Comment on above: Performed By: #### H STROPN, BNP, BMP #### [facility] [address] [place] [address] Dr. Anette Siddiqui Urea nitrogen [Mass/Vol] 15.0 mg/dL Normal 7.0-18.0 [facility] Comment on above: Performed By: #### H STROPN, BNP, BMP #### [facility] [address] [place] [address] Dr. Anette Siddiqui Urea nitrogen/Creatinine [Mass ratio] 21.1 mg/mg Normal [facility] Comment on above: Performed By: #### H STROPN, BNP, BMP #### [facility] [address] [place] [address] Dr. Anette Siddiqui TROPONIN, HIGH SENSITIVITYon 08-07-2022 HSTROP <4.0 Normal 4.0-51.3 [facility] Comment on above: Result Comment: CUT- OFF POINTS HAVE BEEN ESTABLISHED BASED ON THE FOURTH UNIVERSAL DEFINITIONS OF MYOCARDIAL INFARCTION. THE UPPER REFERENCE LIMIT (URL) OF TROPONIN, DEFINED THE 99TH PERCENTILE OF cTnI DISTRIBUTION IN A REFERENCE POPULATION, HAS BEEN CONFIRMED THE DECISION THRESHOLD FOR IA DIAGNOSIS. Performed By: #### H STROPN, BNP, BMP #### [facility] [address] [place] [address] Dr. Anette Siddiqui XR CHEST 1 Von [...] HUGO OWENS Date: 2022-08-07 15:54 Normal [facility] CBC AUTO DIFFon 02-14-2022 BASO # 0.0 103/ul Normal 0.0-0.1 [facility] Comment on above: Performed By: #### C BC #### [facility] [address] [place] [address] Dr. Anette Siddiqui Basophils/100 WBC (Bld) 0.5 % Normal 0.2-2.0 [facility] Comment on above: Performed By: #### C BC #### [facility] [address] [place] [address] Dr. Anette Siddiqui EO # 0.1 103/ul Normal 0.0-0.7 [facility] Comment on above: Performed By: #### C BC #### [facility] [address] [place] [address] Dr. Anette Siddiqui Eosinophils/100 WBC (Bld) 1.0 % Normal 0.9-7.0 [facility] Comment on above: Performed By: #### C BC #### [facility] [address] [place] [address] Dr. Anette Siddiqui Erythrocyte distribution width (RBC) [Ratio] 12.9 % Normal 11.0-15.0 [facility] Comment on above: Performed By: #### C BC #### [facility] [address] [place] [address] Dr. Anette Siddiqui Hematocrit (Bld) [Volume fraction] 43.2 % Normal 36.0-48.0 [facility] Comment on above: Performed By: #### C BC #### [facility] [address] [place] [address] Dr. Anette Siddiqui Hemoglobin (Bld) [Mass/Vol] 14.4 g/dL Normal 12.0-16.0 [facility] Comment on above: Performed By: #### C BC #### [facility] [address] [place] [address] Dr. Anette Siddiqui IG # 0.01 10e3/ul Normal 0.00-0.03 [facility] Comment on above: Performed By: #### C BC #### [facility] [address] [place] [address] Dr. Anette Siddiqui IG % 0.2 % Normal 0.0-0.5 [facility] Comment on above: Performed By: #### C BC #### [facility] [address] [place] [address] Dr. Anette Siddiqui LYMPH # 1.7 103/ul Normal 1.2-3.8 [facility] Comment on above: Performed By: #### C BC #### [facility] [address] [place] [address] Dr. Anette Siddiqui Lymphocytes/100 WBC (Bld) 29.8 % Normal 20.5-60.0 [facility] Comment on above: Performed By: #### C BC #### [facility] [address] [place] [address] Dr. Anette Siddiqui MANUAL DIFF REQ NO Normal [facility] Comment on above: Performed By: #### C BC #### [facility] [address] [place] [address] Dr. Anette Siddiqui MCH (RBC) [Entitic mass] 30.4 pg Normal 26.7-34.0 [facility] Comment on above: Performed By: #### C BC #### [facility] [address] [place] [address] Dr. Anette Siddiqui MCHC (RBC) [Mass/Vol] 33.3 g/dL Normal 29.9-35.2 [facility] Comment on above: Performed By: #### C BC #### [facility] [address] [place] [address] Dr. Anette Siddiqui MCV (RBC) [Entitic vol] 91.1 fL Normal 81.0-99.0 [facility] Comment on above: Performed By: #### C BC #### [facility] [address] [place] [address] Dr. Anette Siddiqui MONO # 0.5 103/ul Normal 0.3-0.8 [facility] Comment on above: Performed By: #### C BC #### [facility] [address] [place] [address] Dr. Anette Siddiqui Monocytes/100 WBC (Bld) 9.1 % Normal 1.7-12.0 [facility] Comment on above: Performed By: #### C BC #### [facility] [address] [place] [address] Dr. Anette Siddiqui NEUT # 3.5 103/ul Normal 1.4-6.5 [facility] Comment on above: Performed By: #### C BC #### [facility] [address] [place] [address] Dr. Anette Siddiqui Neutrophils/100 WBC (Bld) 59.4 % Normal 43.0-75.0 [facility] Comment on above: Performed By: #### C BC #### [facility] [address] [place] [address] Dr. Anette Siddiqui Platelet mean volume (Bld) [Entitic vol] 10.1 fL Normal 9.5-13.5 [facility] Comment on above: Performed By: #### C BC #### [facility] [address] [place] [address] Dr. Anette Siddiqui PLT 198 103/ul Normal 150-450 [facility] Comment on above: Performed By: #### C BC #### [facility] [address] [place] [address] Dr. Anette Siddiqui RBC 4.74 106/ul Normal 4.20-5.40 [facility] Comment on above: Performed By: #### C BC #### [facility] [address] [place] [address] Dr. Anette Siddiqui WBC 5.8 103/ul Normal 4.0-11.0 [facility] Comment on above: Performed By: #### C BC #### [facility] [address] [address] [address] ABD/PELVIS WO CONon [...] AGUSTIN SWANN Date: 2022-02-14 13:11 Normal [facility] ER URINE PROFILEon 2 Bilirubin Ql (U) Negative Normal NEGATIVE [facility] Comment on above: Performed By: #### P TT, PT #### [facility] [address] [address] [address] Anette Siddiqui Clarity (U) CLEAR Normal CLEAR [facility] Comment on above: Performed By: #### P TT, PT #### [facility] [address] [place], [place] [address] Dr. Anette Siddiqui Color (U) LT. YELLOW Normal YELLOW [facility] Comment on above: Performed By: #### P TT, PT #### [facility] [address] [address] [address] Anette BOWMAN A micrscopic examination will be performed if indicated. Normal [facility] Comment on above: Performed By: #### P TT, PT #### [facility] [address] [place] [address] Dr. Anette Siddiqui Glucose Ql (U) Negative Normal NEGATIVE [facility] Comment on above: Performed By: #### P TT, PT #### [facility] [address] [address] [address] Anette Siddiqui Hemoglobin Ql (U) Negative Normal NEGATIVE [facility] Comment on above: Performed By: #### P TT, PT #### [facility] [address] [place] [address] Dr. Anette Siddiqui Ketones Ql (U) Negative Normal NEGATIVE [facility] Comment on above: Performed By: #### P TT, PT #### [facility] [address] [place] [address] Dr. Anette Siddiqui LEUKOCYTES Negative Normal NEGATIVE [facility] Comment on above: Performed By: #### P TT, PT #### [facility] [address] [address] [address] Anette Siddiqui Nitrite Ql (U) Negative Normal NEGATIVE [facility] Comment on above: Performed By: #### P TT, PT #### [facility] [address] [place] [address] Dr. Anette Siddiqui pH (U) 6.0 [pH] Normal 5-9 [facility] Comment on above: Performed By: #### P TT, PT #### [facility] [address] [address] [address] Anette Siddiqui SPEC GRAVITY 1.015 Normal 1.005-<=1.02 5 [facility] Comment on above: Performed By: #### P TT, PT #### [facility] [address] [place] [address] Dr. Anette Siddiqui UA PROTEIN Negative Normal NEGATIVE/ TRACE [facility] Comment on above: Performed By: #### P TT, PT #### [facility] [address] [place] [address] Dr. Anette Siddiqui UR MICRO IND NOT INDICATED Normal [facility] Comment on above: Performed By: #### P TT, PT #### [facility] [address] [place] [address] Dr. Anette Siddiqui Urobilinogen Qn (U) 0.2 {Shaniqua'U}/dL Normal 0.2 - 1. 0 [facility] Comment on above: Performed By: #### P TT, PT #### [facility] [address] [place] [address] Dr. Anette Siddiqui URon 02-14-2022 , QUAL Negative Normal NEGATIVE [facility] Comment on above: Performed By: #### P TT, PT #### [facility] [address] [place] [address] Dr. Anette Siddiqui PROF 14(COMP METB)on 022 Albumin [Mass/Vol] 4.2 g/dL Normal 3.4-5.0 [facility] Comment on above: Performed By: #### C MP #### [facility] [address] [place] [address] Dr. Anette Siddiqui Albumin/Globulin [Mass ratio] 1.4 {ratio} Normal [facility] Comment on above: Performed By: #### C MP #### [facility] [address] [place] [address] Dr. Anette Siddiqui ALP [Catalytic activity/Vol] 105 U/L Normal 46-116 [facility] Comment on above: Performed By: #### C MP #### [facility] [address] [place] [address] Dr. Anette Siddiqui ALT [Catalytic activity/Vol] 31 U/L Normal 14-59 [facility] Comment on above: Performed By: #### C MP #### [facility] [address] [place] [address] Dr. Anette Siddiqui Anion gap [Moles/Vol] 11.9 mmol/L Normal [facility] Comment on above: Performed By: #### C MP #### [facility] [address] [address] [address] Anette Siddiqui AST [Catalytic activity/Vol] 17 U/L Normal 15-37 [facility] Comment on above: Performed By: #### C MP #### [facility] [address] [address] [address] Anette Siddiqui Bilirubin [Mass/Vol] 0.6 mg/dL Normal 0.2-1.0 [facility] Comment on above: Performed By: #### C MP #### [facility] [address] [address] [address] Anette Siddiqui Calcium [Mass/Vol] 9.2 mg/dL Normal 8.5-10.1 [facility] Comment on above: Performed By: #### C MP #### [facility] [address] [place] [address] Dr. Anette Siddiqui Chloride [Moles/Vol] 105 mmol/L Normal 98-107 [facility] Comment on above: Performed By: #### C MP #### [facility] [address] [address] [address] Anette Siddiqui CO2 [Moles/Vol] 27.8 mmol/L Normal 21.0-32.0 [facility] Comment on above: Performed By: #### C MP #### [facility] [address] [address] [address] Anette Siddiqui Creatinine [Mass/Vol] 0.74 mg/dL Normal 0.55-1.02 [facility] Comment on above: Performed By: #### C MP #### [facility] [address] [address] [address] Anette Siddiqui EGFR-AF GEORGIAN >60 Normal >=60 [facility] Comment on above: Performed By: #### C MP #### [facility] [address] [address] [address] Anette Siddiqui EGFR-NON AF GEORGIAN >60 Normal >=60 [facility] Comment on above: Performed By: #### C MP #### [facility] [address] [address] [address] Anette Siddiqui Globulin (S) [Mass/Vol] 3.0 g/dL Normal [facility] Comment on above: Performed By: #### C MP #### [facility] [address] [place] [address] Dr. Anette Siddiqui Glucose [Mass/Vol] 79 mg/dL Normal 74-106 [facility] Comment on above: Performed By: #### C MP #### [facility] [address] [address] [address] Anette Siddiqui Potassium [Moles/Vol] 3.7 mmol/L Normal 3.5-5.1 [facility] Comment on above: Performed By: #### C MP #### [facility] [address] [place] [address] Dr. Anette Siddiqui Protein [Mass/Vol] 7.2 g/dL Normal 6.4-8.2 [facility] Comment on above: Performed By: #### C MP #### [facility] [address] [place] [address] Dr. Anette Siddiqui Sodium [Moles/Vol] 141 mmol/L Normal 136-145 [facility] Comment on above: Performed By: #### C MP #### [facility] [address] [place] [address] Dr. Anette Siddiqui Urea nitrogen [Mass/Vol] 13.0 mg/dL Normal 7.0-18.0 [facility] Comment on above: Performed By: #### C MP #### [facility] [address] [place] [address] Dr. Anette Siddiqui Urea nitrogen/Creatinine [Mass ratio] 17.6 mg/mg Normal [facility] Comment on above: Performed By: #### C MP #### [facility] [address] [place] [address] Dr. Anette Siddiqui PROTIMEon 02-14-2022 INR Coag (PPP) [Relative time] 1.01 {INR} Normal [facility] Comment on above: Performed By: #### P TT, PT #### [facility] [address] [place] [address] Dr. Anette Siddiqui INR GUIDELINES SEE BELOW Normal [facility] Comment on above: Result Comment: HERB RED INR: 2.0 - 3.0 CONDITIONS NOT LISTED BELOW 2.5 - 3.5 FOR PROSTHETIC HEART VALVE REPLACEMENT 2.5 - 3.5 RECURRENT THROMBOSIS Performed By: #### P TT, PT #### [facility] [address] [address] [address] Anette Siddiqui PT Coag (PPP) [Time] 10.9 s Normal 9.0-11.6 [facility] Comment on above: Performed By: #### P TT, PT #### [facility] [address] [address] [address] Anette Siddiqui PTTon 02-14-2022 aPTT Coag (Bld) [Time] 26.9 s Normal 22.3-36.2 [facility] Comment on above: Performed By: #### P TT, PT #### [facility] [address] [place] [address] Dr. Anette Siddiqui Vital Signs Date Time Vital Sign Value Performing Clinician Facility 03-09-2024 13:40-0400 Body mass index (BMI) [Ratio] 21.21 kg/m2 [employer] Work Phone: [facility] 03-09-2024 13:40-0400 Body weight 60.06 kg Pradip [employer] Work Phone: [facility] 03-09-2024 13:40-0400 Diastolic blood pressure 60 mm[Hg] Pradip Lionel DO Work Phone: [facility] 03-09-2024 13:40-0400 Systolic blood pressure 106 mm[Hg] Pradip Lionel DO Work Phone: [facility] 02-19-2024 14:28-0400 Body mass index (BMI) [Ratio] 21.21 kg/m2 [facility] Nurse [facility] 02-19-2024 14:28-0400 Body weight 60.06 kg [facility] Nurse [facility] 11-25-2023 11:50-0400 Body temperature 98.5 [degF] MD Brian Elizabeth Work Phone: [facility] 11-25-2023 11:50-0400 Diastolic blood pressure 77 mm[Hg] MD Brian Elizabeth Work Phone: [facility] 11-25-2023 11:50-0400 Heart rate 104 /min MD Brian Elizabeth Work Phone: [facility] 11-25-2023 11:50-0400 SaO2% (BldA) [Mass fraction] 97 % MD Brian Elizabeth Work Phone: [facility] 11-25-2023 11:50-0400 Systolic blood pressure 108 mm[Hg] MD Brian Elizabeth Work Phone: [facility] 11-24-2023 20:13-0400 Respiratory rate 18 /min MD Brian Elizabeth Work Phone: [facility] 11-24-2023 14:55-0400 Body height 167.64 cm MD Brian Elizabeth Work Phone: [facility] 11-24-2023 09:00-0400 Body weight 60.32 kg MD Brian Elizabeth Work Phone: [facility] 07-23-2023 09:12-0500 Body height 167.6 cm Harris Montague MD Work Phone: [facility] 07-23-2023 09:12-0500 Body mass index (BMI) [Ratio] 23.25 kg/m2 Harris Montague MD Work Phone: [facility] 07-23-2023 09:12-0500 Body temperature 98.49 [degF] Harris Montague MD Work Phone: [facility] 07-23-2023 09:12-0500 Body weight 65.32 kg Harris Montague MD Work Phone: [facility] 07-23-2023 09:12-0500 Diastolic blood pressure 74 mm[Hg] Harris Montague MD Work Phone: [facility] [employer] [facility] 07-23-2023 09:12-0500 Heart rate 56 /min Harris Montague MD Work Phone: [facility] [employer] [facility] 07-23-2023 09:12-0500 SaO2% (BldA) [Mass fraction] 97 % Harris Montague MD Work Phone: [facility] 07-23-2023 09:12-0500 Systolic blood pressure 124 mm[Hg] Harris Montague MD Work Phone: [facility] [employer] Encounters Encounter Date Encounter Type Care Provider Facility Start: 03-09-2024 End: 03-09-2024 Bamboo flowsheet Pradip Lionel DO Work Phone: [facility] Start: 03-09-2024 End: 03-09-2024 Bamboo flowsheet Pradip Lionel DO Work Phone: [facility] Start: 03-09-2024 End: 03-09-2024 Office outpatient visit 15 minutes Pradip Lionel DO Work Phone: [facility] Comment on above: 11 weeks gestation o f ; First trimester Start: 03-01-2024 End: 03-01-2024 Emergency department patient visit [facility] Start: 02-19-2024 End: 02-19-2024 ambulatory PRADIP R LIONEL [facility] Start: 02-19-2024 End: 02-19-2024 Office outpatient visit 5 minutes [facility] Lionel Nurse [facility] Start: 02-19-2024 End: 02-19-2024 ambulatory PRADIP LIONEL Not Available Start: 02-05-2024 End: 02-05-2024 ambulatory [facility] Start: 02-05-2024 End: 02-05-2024 ambulatory [facility] Start: 02-03-2024 ambulatory Krzysztof Finney acility:[facility] Start: 11-23-2023 Non-patient / Non-visit MD Treasure Elizabeth Work Phone: [facility] Work Phone: Start: 11-22-2023 End: 11-25-2023 Evaluation and management of inpatient MD Brian Elizabeth Work Phone: [address] Work Phone: Start: 11-22-2023 End: 11-22-2023 Emergency department patient visit HARRIS Crandall [facility] Start: 08-29-2023 End: 08-29-2023 ambulatory [facility] Start: 08-22-2023 End: 08-22-2023 ambulatory [facility] Start: 08-14-2023 Telephone encounter Malia Hammond MA [facility] Start: 08-14-2023 End: 08-14-2023 ambulatory [facility] Not Available Start: 08-13-2023 End: 08-13-2023 ambulatory [facility] Start: 08-06-2023 End: 08-06-2023 ambulatory [facility] Start: 07-30-2023 End: 07-31-2023 [facility] Start: 07-23-2023 End: 07-23-2023 Office outpatient new 45 minutes Harris Montague MD Work Phone: [facility] Comment on above: Irritable bowel synd sarah with both constipation and diarrhea (Primary Dx); 9 weeks gestation of Start: 07-23-2023 End: 07-23-2023 ambulatory HARRIS Crandall [facility] Start: 05-29-2023 End: 06-01-2023 ambulatory CARLI WILD [facility] Start: 11-14-2022 End: 11-14-2022 ambulatory VENITA N [facility] Start: 10-23-2022 End: 10-24-2022 ambulatory CARLI Tavon WILD [facility] Start: 10-23-2022 End: 10-23-2022 Subsequent hospital visit by physician [facility] Comment on above: Rectal bleeding; Abnormal CT of the abdomen Start: 08-07-2022 End: 08-07-[address] SHARMILA KING Facility:[facility] Start: 02-14-2022 End: 02-14-[address] SHARMILA KING Facility:[facility] Procedures Date Procedure Procedure Detail Performing Clinician Start: 03-09-2024 Urnls dip stick/tabl et rgnt non-auto w/o micrscp Pradip Lionel DO Work Phone: Start: 02-19-2024 Urnls dip stick/tabl et rgnt non-auto w/o micrscp Pradip Lionel DO Work Phone: Start: 07-23-2023 Adult depression scr eening assessment Harris Montague MD Work Phone: Start: 10-23-2022 Assay of gammaglobul in iga igd igg igm each Carli R Everton [employer] Work Phone: Plan of Treatment Date Care Activity Detail Author Start: 08-02-2031 DTaP,Tdap and Td Vaccines (7 - Td or Tdap) DTaP,Tdap and Td Vaccines (7 - Td or Tdap) [facility] Start: 08-02-2031 DTaP/Tdap/Td vaccine (7 - Td or Tdap) DTaP/Tdap/Td vaccine (7 - Td or Tdap) [facility] Start: 07-29-2024 Adult BMI Screening Adult BMI Screen ing [facility] Start: 07-29-2024 Tobacco Screening Tobacco Screening [facility] Start: 07-22-2024 Adult BMI Screening Adult BMI Screen ing [facility] Start: 07-22-2024 Depression Screening Depression Scre ening [facility] Start: 07-22-2024 Tobacco Screening Tobacco Screening [facility] Start: 04-06-2024 End: 04-06-2024 Patient encounter procedure 04/06/2024 1:50 PM EST Routine [facility] [address] [place] [id number] Dasha Martin PA [address] [place] [address] [facility] Start: 03-09-2024 End: 03-09-2024 Patient encounter procedure [facility] Comment on above: Arrived Start: 02-19-2024 End: 02-18-2025 ABO/Rh ABO/Rh Lab Routine Missed menses , unspecified gestational age Expected: 02/19/2024 (Approximate), Expires: 02/18/2025 [facility] Comment on above: Expected: 02/19/2024 (Approximate), Expires: 02/18/2025 Start: 02-19-2024 End: 02-18-2025 Blood type and Indirect antibody screen panel - Blood Type and screen Lab Routine Missed menses , unspecified gestational age Expected: 02/19/2024 (Approximate), Expires: 02/18/2025 [facility] Work Phone: Comment on above: Expected: 02/19/2024 (Approximate), Expires: 02/18/2025 Start: 02-19-2024 End: 02-18-2025 Drugs of abuse panel - Urine by Screen method Rapid drug screen, urine Lab Routine , unspecified gestational age Encounter for supervision of normal first in first trimester Expected: 02/19/2024 (Approximate), Expires: 02/18/2025 [facility] Comment on above: Expected: 02/19/2024 (Approximate), Expires: 02/18/2025 Start: 02-19-2024 End: 02-18-2025 US Pelvis transvaginal US OB transvaginal Imaging Routine Missed menses Expected: 02/19/2024 (Approximate), Expires: 02/18/2025 [facility] Comment on above: Expected: 02/19/2024 (Approximate), Expires: 02/18/2025 Start: 11-25-2023 [facility] Start: 11-22-2023 Hospital admission [facility] Start: 11-22-2023 [facility] Start: 01-17-2023 Influenza vaccination Influenza Vacc ine [facility] Start: 12-17-2022 Influenza vaccination Flu vacc ine (Season Ended) [facility] Start: 04-03-2022 Screening for Chlamy altagracia trachomatis Chlamydia Screening [facility] Start: 09-23-2020 Screening for malign ant neoplasm of cervix Pap smear [facility] Start: 09-23-2017 Hepatitis C screening Hepatitis C sc reen [facility] Start: 2015 Screening for Chlamy altagracia trachomatis Chlamydia/GC screen [facility] Start: 09-23-2014 HIV screening HIV screen [facility] [employer] Start: 2011 Depression Screen Depression Screen [facility] [employer] Start: 03-26-2000 COVID-19 Vaccine (#1) COVID-19 Vacci ne (#1) [facility] Bacteria identified in Urine by Culture Urine culture Microbiology Routine Missed menses Ordered: 02/19/2024 [facility] Comment on above: Ordered: 02/19/2024 End: 10-23-2022 Calprotectin Stool [employer] Phone: Comment on above: 1 Occurrences starti ng 10/23/2022 until 10/23/2022 CBC W Auto Different ial panel - Blood CBC and differential Lab Routine Missed menses , unspecified gestational age Ordered: 02/19/2024 [facility] Comment on above: Ordered: 02/19/2024 Celiac Disease Panel Celiac Dise ase Panel Lab Routine Rectal bleeding Abnormal CT of the abdomen 10/23/2022 4:23 PM EDT [facility] [employer] Phone: Hemoglobin A1c/Hemoglobin.total in Blood Hemoglobin A1c Lab Routine Missed menses , unspecified gestational age Ordered: 02/19/2024 [facility] Comment on above: Ordered: 02/19/2024 Hepatitis B virus surface Ag [Presence] in Serum or Plasma by Immunoassay Hepatitis B surface antigen Lab Routine Missed menses , unspecified gestational age Ordered: 02/19/2024 [facility] Comment on above: Ordered: 02/19/2024 Hepatitis C virus Ab [Presence] in Serum or Plasma by Immunoassay Hepatitis C antibody Lab Routine Missed menses , unspecified gestational age Ordered: 02/19/2024 [facility] Comment on above: Ordered: 02/19/2024 HIV-1/HIV-2 antigen/antibody combination immunoassay HIV-1 and HIV-2 antibodies Lab Routine Missed menses , unspecified gestational age Ordered: 02/19/2024 [facility] Comment on above: Ordered: 02/19/2024 Patient Education Depression, Ad ult (DC) [facility] [place] Instructions Know your Meds [facility] Work Phone: Patient referral [facility] Work Phone: Reagin Ab [Presence] in Serum by RPR RPR Lab Routine Missed menses , unspecified gestational age Ordered: 02/19/2024 [facility] Comment on above: Ordered: 02/19/2024 Rubella antibody, IgG Rubella an tibody, IgG Lab Routine Missed menses , unspecified gestational age Ordered: 02/19/2024 [facility] Comment on above: Ordered: 02/19/2024 Payers Date Payer Category Payer Self-pay 2021 Medicaid (Managed Care) [facility] MEDICAID [id number] 2021 Medicaid [id number] 2019 Unknown VIRI REYNA (PPO) [id number] 2019-Present [phone] [address] [place] [address] [id number]. [id number] 1999 Unknown [id number] 2.16.840.1.313464.3.579.2. 593 1999 Unknown [id number] 2.16.840.1.034163.3.579.2. 593 1999 Unknown [id number] 2.16.840.1.424804.3.579.2. 174 1999 Unknown [id number] 2.16.840.1.756495.3.579.2. 174 1999 Unknown [id number] 2.16.840.1.112342.3.579.2. 173 1999 Unknown [id number] 2.16.840.1.714232.3.579.2. 1285 1999 Unknown [id number] 2.16.840.1.767086.3.579.2. 1285 1999 Unknown [id number] 2.16.840.1.294197.3.579.2. 1285 1999 Unknown [id number] 2.16.840.1.629218.3.579.2. 9 1999 Unknown [id number] 2.16.840.1.487426.3.579.2. 9 1999 Unknown [id number] 2.16.840.1.662256.3.579.2. 1285 1999 Unknown [id number] 2.16.840.1.985289.3.579.2. 1285 1999 Unknown [id number] 2.16.840.1.204888.3.579.2. 1285 1999 Unknown [id number] 2.16.840.1.093435.3.579.2. 1285 1999 Unknown [id number] 2.16.840.1.800380.3.579.2. 1285 1999 Unknown [id number] 2.16.840.1.712009.3.579.2. 1286 1999 Unknown [id number] 2.16.840.1.996332.3.579.2. 1286 1999 Unknown [id number] 2.16.840.1.511520.3.579.2. 1286 1999 Unknown [id number] 2.16.840.1.591749.3.579.2. 1286 1959 Unknown [id number] 1959 Unknown [id number] Unknown [id number] 2.16.840.1.305662.3.579.2. 531 Unknown [id number] 2.16.840.1.034609.3.579.2. 531 Social History Date Type Detail Facility Start: 10-23-2022 End: 08-13-2023 Tobacco smoking status ALIS Never smoked tobacco [employer] Phone: Start: 10-23-2022 End: 07-23-2023 Tobacco use and exposure Smokeless tobacco non-user [employer] Phone: Start: 2000 Sex Assigned At Not on file [employer] Phone: Start: 07-23-2023 End: 03-09-2024 Alcohol intake Lifetime non-drinker (finding) [facility] [employer] [facility] Start: 03-11-2020 End: 08-13-2023 History of Social function [facility] [employer] [facility] Start: 03-11-2020 End: 08-13-2023 Alcohol Use Disorder Identification Test - Consumption [AUDIT-C] [facility] How often to you hav e a drink containing alcohol? Never [facility] Average Number of Drinks Not on file [facility] How hard is it for y ou to pay for the very basics like food, housing, medical care, and heating Somewhat hard [facility] The thought of kelli flynn myself has occurred to me Hardly ever [facility] Start: 05-27-2023 [facility] Start: 2000 Sex Assigned At Female [facility] Start: 07-24-2023 Sexual orientation Heterosexual (finding) [facility] Goals Date Patient Goal Desired Activity /State Functional Status Date Assessment Result Facility 11-25-2023 Functional status Patient at Baseline [facility] Work Phone: Mental Status Date Assessment Result Facility 11-25-2023 Cognitive function Cognitive Sta tus Patient at Baseline [facility] Work Phone: Clinical Notes 07-23-2023 to 03-09-2024 Iris Espositodonn, CASH APPLICATIONS CLERK - 03/09/2024 1:30 PM EDTErandrade Stone, CASH APPLICATIONS CLERK - 02/19/2024 2:00 PM EDT Note Date & Type Note Facility 03-09-2024 History of Presen t illness Narrative Reason for Appointment: Patient ID: Bassam Collado is a 23 y.o. female who presents for Routine Visit Patient presents today for Return OB appointment. MEDICATIONS Current Outpatient Medications Medication Instructions ondansetron ODT (ZOFRAN-ODT) 4 mg, Oral, Every 6 hours PRN Vit-Fe Fumarate-FA ( Vitamins) 28-0.8 MG tablet 1 tablet, Daily sertraline (ZOLOFT) 50 mg, Daily ALLERGIES Allergies Allergen Reactions Amoxicillin Other Reaction(s): stomach upset, Vomiting PROBLEMS Active Ambulatory Problems Diagnosis Date Noted No Active Ambulatory Problems Resolved Ambulatory Problems Diagnosis Date Noted No Resolved Ambulatory Problems Past Medical History: Diagnosis Date Heavy periods Tortuous colon HISTORY PAST MEDICAL HISTORY SOCIAL HISTORY Past Medical History: Diagnosis Date Heavy periods Tortuous colon Social History Tobacco Use Smoking status: Never Smokeless tobacco: Not on file Substance Use Topics Alcohol use: Never Drug use: Never FAMILY HISTORY Family History Problem Relation Name Age of Onset Mitral valve prolapse Father No Known Problems Brother SURGICAL HISTORY Past Surgical History: Procedure Laterality Date TONSILLECTOMY REVIEW OF SYSTEMS Review of Systems: Review of Systems Constitutional: Negative. HENT: Negative. Eyes: Negative. Respiratory: Negative. Cardiovascular: Negative. Gastrointestinal: Negative. Genitourinary: Negative. Musculoskeletal: Negative. Skin: Negative. Neurological: Negative. All other systems reviewed and are negative. Hematological: Negative. Endocrine: Negative. Allergic/Immunologic: Negative. OBJECTIVE Objective: Physical Exam Constitutional: Appearance: Normal appearance. She is well-developed. Cardiovascular: Rate and Rhythm: Normal rate and regular rhythm. Pulmonary: Effort: Pulmonary effort is normal. Breath sounds: Normal breath sounds. Abdominal: General: Bowel sounds are normal. There is no distension. Palpations: Abdomen is soft. Tenderness: There is no abdominal tenderness. There is no guarding or rebound. Musculoskeletal: General: No swelling. Normal range of motion. Right lower leg: No edema. Left lower leg: No edema. Neurological: Mental Status: She is alert and oriented to person, place, and time. Skin: General: Skin is warm and dry. Psychiatric: Mood and Affect: Mood normal. Behavior: Behavior normal. Vitals and nursing note reviewed. Exam conducted with a fiberglass container winding operator present. Vitals: Estimated body mass index is 21.21 kg/m as calculated from the following: Height as of 18: 5' 6.25 . Weight as of this encounter: 132 lb 6.4 oz. BP: 106/60 Patient's last menstrual period was 12/19/2023. ASSESSMENT & PLAN ICD-10-CM 1. 11 weeks gestation of Z3A.11 POCT urinalysis dipstick manually resulted 2. First trimester Z34.91 POCT urinalysis dipstick manually resulted New OB: Patient presents today for 1st time obstetrics appointment with provider. Patient is currently 11w4d . Patients history has been reviewed in great detail including any potential risks. Patient stated she currently has no complaints. Expectations throughout regarding labs, ultrasounds, and appointments have been discussed with the patient in detail. It was reiterated that the patient is to drink 6-8 glasses of water a day, eat 6 small meals a day, do not consume raw or undercooked meat, and stay away from [facility]. Patient has been consulted regarding any further do's and don'ts of . Patient voiced understanding and all questions and concerns were answered. Orders Placed This Encounter Procedures POCT urinalysis dipstick manually resulted Follow Up: Patient is to return in 4 weeks for routine OB appointment. Documented by Irsi Gale LPN on behalf of: Pradip Flowers DO documented in this encounter [facility] 02-19-2024 History of Presen t illness Narrative Reason for Appointment: Patient ID: Bassam Collado is a 23 y.o. female who presents for Amenorrhea Patient presents today for a Nurse OB Intake appointment. Patient is Unknown with a Estimated Date of Delivery: None noted. OB History Para Term AB Living 3 1 1 1 1 SAB IAB Ectopic Multiple Live Births 1 1 # Outcome Date GA Lbr Thony/2nd Weight Sex Type Anes PTL Lv 3 Current 2 SAB 08/06/23 1 Term 09/25/21 40w0d 10:55 / 00:44 8 lb 4 oz M Vag-Spont Local N CANDACE Comments: SPONTANEOUS CRY AT DELIVERY Current Medications: has a current medication list which includes the following prescription(s): vitamins and sertraline. Medical History: Active Ambulatory Problems Diagnosis Date Noted No Active Ambulatory Problems Resolved Ambulatory Problems Diagnosis Date Noted No Resolved Ambulatory Problems Past Medical History: Diagnosis Date Heavy periods Family History Problem Relation Name Age of Onset Mitral valve prolapse Father No Known Problems Brother Social History Tobacco Use Smoking status: Never Smokeless tobacco: Not on file Substance Use Topics Alcohol use: Never Drug use: Never Past Surgical History: Procedure Laterality Date TONSILLECTOMY Allergies Allergen Reactions Amoxicillin Other Reaction(s): stomach upset, Vomiting Vitals: Estimated body mass index is 21.21 kg/m as calculated from the following: Height as of 18: 5' 6.25 . Weight as of this encounter: 132 lb 6.4 oz. BP: Patient's last menstrual period was 12/19/2023. Assessment/Plan Diagnoses and all orders for this visit: Missed menses - Type and screen; Future - ABO/Rh; Future - CBC and differential - Hemoglobin A1c - RPR - Rubella antibody, IgG - Hepatitis B surface antigen - Hepatitis C antibody - HIV-1 and HIV-2 antibodies - Urine culture - US OB transvaginal; Future - POCT , urine manually resulted - POCT urinalysis dipstick manually resulted , unspecified gestational age - Type and screen; Future - ABO/Rh; Future - CBC and differential - Hemoglobin A1c - RPR - Rubella antibody, IgG - Hepatitis B surface antigen - Hepatitis C antibody - HIV-1 and HIV-2 antibodies - Rapid drug screen, urine; Future Encounter for supervision of normal first in first trimester - Rapid drug screen, urine; Future Nurse Note: OB Intake: Patient presents today for first OB visit. Patients history has been reviewed in great detail including any potential risks. Patient signed consent forms and patient desires testing in both trimesters. Patient currently has no complaints and has been advised to drink 6-8 glasses of water a day, eat no raw or undercooked meat, and stay away from [facility]. Patient has also been advised to not change litter boxes and eat 6 small meals a day. Patient has been consulted regarding the do's and don'ts of . Patient was given labs and all questions and concerns were answered. Follow Up: Patient is to return in 4 weeks for routine OB appointment. Follow Up: Patient is to have labs drawn at directed and return to office for initial OB appointment with provider. Patient may call office as needed with any concerns or questions. Nurse Visit Completed by: Sridevi Stone LPN documented in this encounter [facility] 11-24-2023 Progress note Note Date/Time November 24, 2023 1:21p m [facility] [address] [place] [address] Psychiatry Progress Note Signed Patient: Bassam Collado MR#: [id number] : 2000 Acct:[id number] Age/Sex: 23 / F Adm Date: 4 Loc: Room: [address] [place] [address] Type : ADM IN Attending Dr: Krzysztof [...] alternatives explained Documented By: Demetrius Kelley MD 11/24/231319 Signed By: <Electronically signed by Demetrius Kelley MD> 11/24/23 1322 [facility] Work Phone: 1(610) 709-387307-07-2024 History and physical note Author Krzysztof vargas [facility] November 23, 2023 9:45am Note Date/Time November 23, 2023 7:42a m [facility] [address] [place] [address] Psychiatry H&P Signed Patient: Bassam Collado MR#: [id number] : 2000 Acct:[id number] Age/Sex: 23 / F Adm Date: 4 Loc: Room: [address] [place] [address] Type: ADM IN Attending Dr: Krzysztof Montesinos [...] them for any support. 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[employer], pt is worried about falling behind in [...] depressive disorder, recurrent, moderate: Plan Admit to for management of depression and to ensure [...] staff) Documented By: Krzysztof Montesinos MD 4 [id number] Signed By: <Electronically signed by Krzysztof Montesinos MD> 11/23/23 0936 [facility] Work Phone: [phone] 277-661603-28-2024 Miscellaneous Notes* Telephone Encounter - Malia Sanchez [...] set up an appointment [facility] Telephone encounter Note* Telephone Encounter - Malia Sanchez CMA - 08/14/2023 1:54 PM EDT ----- Message from Harris Montague MD sent at 08/14/2023 12:44 PM EDT ----- Abnormal result. Concerning for miscarriage/ termination Please call patient to see if she would like appointment with provider to discuss or if OB providerhas already reviewed? [facility]03-28-2024 Telephone encounter Note* Telephone Encounter - Malia Sanchez CMA - 08/14/2023 1:54 PM EDT Called patient she stated that she did not need to set up an appointment [facility]03-06-[facility]24 History of Present illness Narrative* Harris Montague MD - 07/23/2023 9:00 AM EST Images from the original note were not included. [address] [place] [address] [address] [facility] [id number] Patient: Bassam Collado Date of : 2000 Encounter Date: 07/23/2023 SUBJECTIVE: Chief Complaint: Chief Complaint Patient presents with [facility] Care Patient ID: Bassam Collado is a 22 y.o. female. Pleasant [...] time. Mental status is at baseline. ASSESSMENT/PLAN: Bassam was seen today for establish care. Diagnoses and all orders for this visit: Irritable bowel syndrome with both constipation and diarrhea 9 weeks gestation of Discussed FODMAP diet Diet and exercise counseling Recommended use of probiotics regularly Follow-up as needed. HARRIS MONTAGUE MD Family Medicine Physician [facility] Family Medicine / [facility] 07/23/23 This note was completed with voice recognition software. The document was reviewed for errors however some may still be present. Please do not hesitate to contact/Epic ms the author to verify any questions/concerns. documented in this encounterGenesis Hospital SystemDischarge summary Author Demetrius Kelley [facility] November 25, 2023 12:08pm Note Date/Time November 25, 2023 11:13 am [facility] [address] [place] [address] Discharge Summary Signed Patient: Bassam Collado MR#: [id number] : 2000 Acct:[id number] Age/Sex: 23 / F Adm Date: 4 Loc: Room: [address] [place] [address]: Krzysztof Montesinos MD Copies to: [...] them for any support. 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 If at any time you are feeling an increase inyour psychiatric symptoms, call your physician or behavioral healthcare provider. If any time you have thoughts of harming yourself or others contact one of the following: Call 8-8 (available 09/12) Crisis Text Line (available 09/12) text [facility] to [phone] [facility] Line (available 8 a.m. Midnight) call [phone]) Instructions: Depression, Adult (DC), [facility] DC Instructions, Know your Meds [...] PO DAILY PRN (Reason: constipation) Follow Up: [facility] [Outside] - 11/26/23 (This will be [...] signed by Demetrius Kelley MD> 11/25/23 1208 [facility] Work Phone: Evaluation note* Diagnosis Rectal bleeding Hemorrhage of rectum and anus Abnormal CT of the abdomen Nonspecific (abnormal) findings on radiological and other examination of abdominal area, including retroperitoneum documented in this encounter [facility] Work Phone: evaluation note* Diagnosis Irritable bowel syndrome with both constipation and diarrhea- Primary 9 weeks gestation of [facility] this encounter [facility] Diagnosis Onset Date Resolution Status Major depressive disorder, recurrent, moderate acute [facility] Work Phone: Evaluation note* Diagnosis Missed menses , unspecified gestational age Encounter for supervision of normal first in first trimester documented [facility] this encounter [facility] Diagnosis 11 weeks gestation of First trimester state, incidental documented in this encounter [facility] HealthcareInstructionsNot on filedocumented in this encounterProMedica Health SystemInstructionsNot on filedocumented in this encounterProMercy Health [facility] Summary Purpose Family History No Family [...] and content) DATE CREATED AUTHOR 08/10/2022 [facility] DATE CREATED AUTHOR AUTHOR'S ORGANIZ ATION 11/18/2022 [facility] DATE CREATED AUTHOR AUTHOR'S ORGANIZ ATION 02/26/2023 [place] DATE CREATED AUTHOR AUTHOR'S ORGANIZ ATION [facility]/01/2023 [facility] DATE CREATED AUTHOR AUTHOR'S ORGANIZ ATION 02/07/2024 [facility] DATE CREATED AUTHOR AUTHOR'S ORGANIZ ATION 02/08/2024 [facility] DATE CREATED AUTHOR AUTHOR'S ORGANIZ ATION 02/21/2024 [facility] DATE CREATED AUTHOR AUTHOR'S ORGANIZ ATION 03/03/2024 [facility] DATE CREATED AUTHOR AUTHOR'S ORGANIZ ATION 03/14/2024 [facility] Reason for Visit (unrecogniz ed section and content) Reason Comments Establish Care Reason Comments Amenorrhea Reason Comments Routine Visit Care Teams (unrecognized sec tion and content) Senior Field Engineer Relationship Specialty Start Date End Date Harris Montague MD [address] [place] [address] PCP - General Internal Medicine 07/23/23 Senior Field Engineer Relationship Specialty Start Date End Date Harris Montague MD [address] [place] [address] PCP - General Internal Medicine 07/23/23 Team [...] Other Provider Active Start: November 23, 2023 Senior Field Engineer Relationship Specialty Start Date End Date Sharmila King MD [address] [place] [address] PCP - External PCP Family Medicine 10/26/22 Harris Montague MD [address] [facility] [place] [place] [address] PCP - General Family Medicine 08/14/23 Senior Field Engineer Relationship Specialty Start Date End Date Sharmila King MD [address] [place], [place] [id number] PCP - External PCP Family Medicine 10/26/22 Harris Montague MD [address] [facility] [place] [address] PCP - General Family Medicine 08/14/23 Senior Field Engineer Relationship Specialty Start Date End Date Sharmila King MD [address] [place] [address] PCP - External PCP Family Medicine 10/26/22 Harris Montague MD [address] [facility] [place] [address] PCP - General Family Medicine 08/14/23 FOR RECORDS PERTAINING TO PATIENTS WHO ARE [...] BE BASED ON THE PRIMARY CLINICAL RECORDS. [facility] [facility]. provides no warranty or guarantee of the accuracy or completeness of information in this document.
== END 2024-04-06 21:12 | disposition home or self-care (01) ==
LOC: LAB 21:11
PROVIDERS: PCP Family Medicine; Visit Provider Physician Assistant
DX: Z01.419 Encounter for gynecological examination (general) (routine) without abnormal findings (principal)
CPT/HCPCS: 88175

== ENCOUNTER 2024-05-07 14:41 | Outpatient (OUT) | payer OTHER, SELFPAY ==
--- NOTE | 2024-05-07 14:47 | US_ITS ---
[address] [address] Patient Name: BASSAM FERGUSON MRN: [id number] date: 2000 Sex: F Assigned Patient Location: US Current Patient Location: Accession/Order Number: [id number] Exam Date: 05/07/2024 15:01 Report Date: 05/08/2024 05:29 At the request of: SHADI VAZQUEZ Procedure: US OB anatomy EXAMINATION: US OB anatomy, US OB cervical length HISTORY: Screening Anatomic Survey COMPARISON: Ultrasound OB transvaginal 02/19/2024 TECHNIQUE: Transabdominal sonographic examination was performed for obstetrical and evaluation. FINDINGS: Number: 1 Heart Rate: 159.76 bpm H.B. /min Amniotic Fluid Volume: Subjectively normal. Placental Location: ANTERIOR with lower margin 4.3 cm from os. Cervix Length: 3.77 cm ; closed. ANATOMY: Normal Structures -cerebellum, choroid plexus, cisterna magna, lateral cerebral ventricles, orbits, midline falx, hard palate, four-chamber heart, RVOT, LVOT, stomach, kidneys, bladder, umbilical cord insertion into abdomen, three-vessel cord, cervical spine, thoracic spine, lumbar spine, sacral spine, right upper extremity, left upper extremity, right lower extremity, left lower extremity. SUBOPTIMALLY SEEN: None ABNORMALITIES: 2 mm round hyperechoic structure within stomach; nonspecific. BIOMETRY: BPD: 4.80 cm; 20 weeks 4 days; 71.10 % HC: 17.82 cm; 20 weeks 2 days; 55.30 % AC: 15.54 cm; 20 weeks 5 days; 68.30 % FL: 3.08 cm; 19 weeks 4 days; 26.10 % EFW:338.15 g; 56.80 % FL/AC: 19.80 FL/BPD: 64.14 HC/AC: 1.15 GESTATIONAL AGE: Age by EDC: 20 weeks 0 days Age by current US: 20 weeks 2 days ARTUR by current US: 2024-09-22 ARTUR by EDC: 2024-09-24 US/US OB anatomy IMPRESSION: 1. Single live intrauterine with growth detailed above. 2. Nonspecific 2 mm round hyperechoic structure within stomach; nonspecific. Consider follow-up. Electronically authenticated by: AGUSTIN SWANN Date: 05/08/2024 05:29
--- NOTE | 2024-05-07 14:47 | US_ITS ---
[address] [address] Patient Name: BASSAM FERGUSON MRN: [id number] date: 2000 Sex: F Assigned Patient Location: US Current Patient Location: Accession/Order Number: [id number] Exam Date: 05/07/2024 15:01 Report Date: 05/08/2024 05:29 At the request of: SHADI VAZQUEZ Procedure: US OB cervical length EXAMINATION: US OB anatomy, US OB cervical length HISTORY: Screening Anatomic Survey COMPARISON: Ultrasound OB transvaginal 02/19/2024 TECHNIQUE: Transabdominal sonographic examination was performed for obstetrical and evaluation. FINDINGS: Number: 1 Heart Rate: 159.76 bpm H.B. /min Amniotic Fluid Volume: Subjectively normal. Placental Location: ANTERIOR with lower margin 4.3 cm from os. Cervix Length: 3.77 cm ; closed. ANATOMY: Normal Structures -cerebellum, choroid plexus, cisterna magna, lateral cerebral ventricles, orbits, midline falx, hard palate, four-chamber heart, RVOT, LVOT, stomach, kidneys, bladder, umbilical cord insertion into abdomen, three-vessel cord, cervical spine, thoracic spine, lumbar spine, sacral spine, right upper extremity, left upper extremity, right lower extremity, left lower extremity. SUBOPTIMALLY SEEN: None ABNORMALITIES: 2 mm round hyperechoic structure within stomach; nonspecific. BIOMETRY: BPD: 4.80 cm; 20 weeks 4 days; 71.10 % HC: 17.82 cm; 20 weeks 2 days; 55.30 % AC: 15.54 cm; 20 weeks 5 days; 68.30 % FL: 3.08 cm; 19 weeks 4 days; 26.10 % EFW:338.15 g; 56.80 % FL/AC: 19.80 FL/BPD: 64.14 HC/AC: 1.15 GESTATIONAL AGE: Age by EDC: 20 weeks 0 days Age by current US: 20 weeks 2 days ARTUR by current US: 2024-09-22 ARTUR by EDC: 2024-09-24 US/US OB cervical length IMPRESSION: 1. Single live intrauterine with growth detailed above. 2. Nonspecific 2 mm round hyperechoic structure within stomach; nonspecific. Consider follow-up. Electronically authenticated by: AGUSTIN SWANN Date: 05/08/2024 05:29
--- OUTSIDE RECORDS SUMMARY | 2024-05-07 14:48 | XMS_ITS | CCD ---
Author Organization [facility] Care Team Providers Care Production Operations Engineer Name Role Phone DR SHARMILA KING [...] Referring Unavailable VENITA AMBROSIO Admitting Unavailable VENITA AMBORSIO Attending Unavailable CARLI WILD Referring Unavailable Harris Montague MD Primary Care Provider MD Brian Elizabeth Primary Care Provider MD Krzysztof Montesinos Admit Provider MD Krzysztof Montesinos Attending Provider [phone] HARRIS MONTAGUE Attending Unavailable SHARMILA KING Referring Unavailable BRIANHARRIS Primary Care Unavailable BRIANHARRIS Attending Unavailable BRIANHARRIS Referring Unavailable BRIANKALHAMID Karley Primary Care Unavailable BRIANJOSELINID Karley Referring Unavailable BRIANHARRIS Primary Care Unavailable Sharmila King MD Unavailable [phone] Harris Montague MD Primary Care Provider BRIANKALHAMID Karley Primary Care Unavailable NATASHA ELIZABETH Attending Unavailable [...] Unavailable BRIAN, MUHAMID M Primary Care Unavailable Krzysztof Montesinos Admitting Unavailab le Glenn, Brian Primary Care Unavailable Demetrius Kelley Attending Unavailable Krzysztof Montesinos Attending Unavailab le JaguarKrzysztof vargas Admitting Unavailab le Glenn, Brian Primary Care Unavailable LIONEL, PRADIP Attending Unavailable LIONEL, PRADIP Attending Unavailable DASHA POWERS Attending Unavailable Allergies Allergy Classification Reported Allergen(s) Allergy Type Date of Onset Reaction(s) Facility (4 sources) Amoxicillin; Translations: [AMOXICILLIN] Drug Allergy 01-14-2021 [facility] (11 sources) Amoxicillin Drug Allergy 04-07-2021 Vomiting [facility] Medications Current Medications Medication Drug Class(es) Dates Sig (Normalized) Sig (Original) nicotine 2 mg chewing gum (1 source) Cholinergic Nicotinic Agonist Start: 11-25-2023 Nicotine (Polacrilex) Active 2 MG BUCCAL Q2H November 25, 2023 12:00am ondansetron 4 mg disintegrating oral tablet (7 sources) Serotonin-3 Receptor Antagonist Start: 02-25-2024 End: 04-22-2024 take 1 tablet by mouth every six hours for nausea ondansetron ODT (Zofran-ODT) 4 MG disintegrating tablet Indications: Nausea and vomiting in Take 1 tablet (4 mg) by mouth every 6 (six) hours if needed for nausea or vomiting 30 tablet 2 03/23/2024 04/22/2024 Active Pnv Cmb#95-Ferrous Fumarate-Fa () 28 mg iron- 800 mcg tablet (1 source) Start: 11-22-2023 take 1 tablet by mouth once daily Pnv Cmb#95-Ferrous Fumarate-Fa () 28 mg iron- 800 mcg tablet Active 1 TAB PO Daily November 22, 2023 12:00am polyethylene glycol 3350 69822 mg powder for oral solution (1 source) Osmotic Laxative Start: 11-22-2023 Polyethylene Glycol 3350 (Miralax) 17 gram/dose powder Active 17 GM PO Daily November 22, 2023 12:00am 25/iron fum/folic/dha (-1 ORAL) (2 sources) take 1 tablet by mouth once daily 25/iron fum/folic/dha (-1 ORAL) Take 1 tablet by mouth daily. 0 Active MV & Min w/FA-DHA ( Gummies) 0.18-25 MG chewable tablet (6 sources) Start: 03-09-2024 MV & Min w/FA-DHA ( Gummies) 0.18-25 MG chewable tablet Indications: First trimester Chew 1 each Daily 30 tablet 11 03/09/2024 Active MV-Min-Fe Fum-FA-DHA ( 1 PO) (1 source) MV-Min- Fe Fum-FA-DHA ( 1 PO) Take 1 tablet by mouth daily 0 Active Vit-Fe Fumarate-FA ( Vitamins) 28-0.8 MG tablet (8 sources) Start: 11-17-2023 take 1 tablet by mouth once daily Vit-Fe Fumarate-FA ( Vitamins) 28-0.8 MG tablet Take 1 tablet by mouth Daily 11/17/2023 Active sertraline 50 mg oral tablet (9 sources) Serotonin Reuptake Inhibitor Start: 01-27-2024 take [...] (tract) infections; Translations: [Dysuria] Onset: 3 Episodic Immunizations and screening for infectious disease (2 sources) Exposure to sexually transmissible disorder; Translations: [Contact with and (suspected) exposure to infections with a predominantly sexual mode of transmission] 04-06-2024 Episodic Menstrual disorders (2 sources) Missed period; [...] 3 Episodic Other and delivery including normal (9 sources) Finding of ; Translations: [Encounter for care and examination of lactating mother] Onset: 2 11-07-2021 Episodic Other screening for suspected conditions (not mental disorders or infectious disease) (8 sources) CT of abdomen abnormal; Translations: [Abnormal findings on diagnostic imaging of other abdominal regions, including retroperitoneum] Onset: 3 Episodic Residual codes; unclassified (1 source) Gestation period, 9 weeks; Translations: [9 weeks gestation of ] 07-23-2023 Episodic Residual codes; unclassified (2 sources) Gestation period, 11 weeks; Translations: [11 weeks gestation of ] 03-09-2024 Episodic Residual codes; unclassified (2 sources) Gestation period, 15 weeks; Translations: [15 weeks gestation of ] 04-06-2024 Episodic Unclassified (1 source) Establish Care Onset: [...] Test Name Value Interpretation Reference Range Facility IGP,APTIMA HPV,AGE GDLNon AGE GDLN ACOG TESTING Note . [facility] Comment on above: TESTS RESULT FLAG U NITS REF RANGE LAB Clinician Provided Cytology Information Source.............Cervix No. of containers..01 ThinPrep Vial Age Algo ACOG Krys... FLAG LEGEND: L-Low Normal,H-High Normal,LL-Alert Low,HH-Alert High <-Panic Low,>-Panic High,A-Abnormal,AA-Critical Abnormal Performed at: 01 =G [facility] [place] [address] Eliza Peters MD, IGP, RFX APTIMA HPV ASCU Note . [facility] Comment on above: TESTS RESULT FLAG UN ITS REF RANGE LAB DIAGNOSIS: 02 NEGATIVE FOR INTRAEPITHELIAL LESION OR MALIGNANCY. THIS SPECIMEN WAS RESCREENED PART OF OUR SKEIN TIER PROGRAM. Specimen adequacy: 02 Satisfactory for evaluation. No endocervical component is identified. Performed by: 02 Alyssia Funez, Washtub Worker Helper (ASCP) QC reviewed by: 02 Elena Dumont, Supervisory Washtub Worker Helper (ASCP) . 02 Note: Note 02 The Pap smear is a screening test designed to aid in the detection of premalignant and malignant conditions of the uterine cervix. It is not a diagnostic procedure and should not be used as the sole means of detecting cervical cancer. Both false-positive and false-negative reports do occur. Test Methodology: Note 02 This liquid based ThinPrep(R) pap test was screened with the use of an image guided system. . 02 The HPV DNA reflex criteria were not met with this specimen result therefore, no HPV testing was performed. FLAG LEGEND: L-Low Normal,H-High Normal,LL-Alert Low,HH-Alert High <-Panic Low,>-Panic High,A-Abnormal,AA-Critical Abnormal Performed at: [address] [facility] [address] [address] Eliza Peters MD, Performed at: = - [facility] [address] [id number] Hydroelectric Production Technician: Eliza Peters MD, Phone: [phone] Performed at: [facility] [id number] Hydroelectric Production Technician: Eliza Peters MD, Phone: [phone] [facility] macro (dipstick) panel (U)on 04-06-2024 Bilirubin, UA Negative Negative - 4(70) +++ mg/dL [facility] Blood, UA Negative Negative - 50 Hosea/mcL [facility] Clarity, UA Clear [facility] Color, UA Yellow [facility] Glucose, UA Negative Negative - 1999(110) ++++ mg/dL [facility] Interpretation and review of laboratory results Abnormal [facility] Ketones, UA Positive Negative - 160(16) ++++ mg/dL [facility] Comment on above: trace Leukocytes, UA Negative Negative - 500+++ Greg/mcL [facility] Nitrite, UA Negative Negative - Positive [facility] pH, UA 7 5 - 9 [facility] Protein, UA Negative Negative - 1999(20) ++++ mg/dL [facility] Spec Grav, UA 1.025 1 - 1.03 [facility] Urobilinogen, UA 1.0 0.2 - 12 mg/dL [facility] Urinalysis macro (dipstick) panel (U)on 03-09-2024 Bilirubin, UA Negative Negative - 4(70) +++ mg/dL [facility] Blood, UA Negative Negative - 50 Hosea/mcL [facility] Clarity, UA Clear [facility] Color, UA Yellow [facility] Glucose, UA Negative Negative - 1999(110) ++++ mg/dL [facility] Interpretation and review of laboratory results Abnormal [facility] Ketones, UA Negative Negative - 160(16) ++++ mg/dL [facility] Leukocytes, UA Trace Negative - 500+++ Greg/mcL [facility] Nitrite, UA Negative Negative - Positive [facility] pH, UA 6.5 5 - 9 [facility] Protein, UA Negative Negative - 2000(20) ++++ mg/dL [facility] Spec Grav, UA 1.02 1 - 1.03 [facility] Urobilinogen, UA 0.2 0.2 - 12 mg/dL [facility] CBC AND AUTO DIFFon 02-19-20 24 ABSOLUTE BASOPHIL 0.0 X10E9/L Normal 0.0-0.2 [facility] Comment on above: Performed By: #### C NIKA JAEGER, #### [facility] ([id number]) [address] [place] [address] ABSOLUTE NEUTROPHIL 6.7 X10E9/L High 1.5-6.6 [facility] Comment on above: Performed By: #### Manish JAEGER CMP, #### [facility] ([id number]) [address] [place] [address] Basophils/100 WBC (Bld) 0.3 % Normal [facility] Comment on above: Performed By: #### C MIL CMP, #### [facility] ([id number]) [address] [place] [address] 08547 Eosinophils (Bld) [#/Vol] 0.0 10*3/uL Normal 0.0-0.4 [facility] Comment on above: Performed By: #### C MIL, CMP, #### [facility] ([id number]) [address] [place] [address] 26766 Eosinophils/100 WBC (Bld) 0.4 % Normal [facility] Comment on above: Performed By: #### C MIL, CMP, #### [facility] ([id number]) [address] [place] [address] 24394 Erythrocyte distribution width (RBC) [Ratio] 14.2 % Normal 11.5-15.0 [facility] Comment on above: Performed By: #### C MIL [facility], #### [facility] ([id number]) [address] [place] [address] 71279 Hematocrit (Bld) [Volume fraction] 40.0 % Normal 35-47 [facility] Comment on above: Performed By: #### C MIL [facility], #### [facility] ([id number]) [address] [place] [address] 16231 Hemoglobin (Bld) [Mass/Vol] 13.7 g/dL Normal 11.7-15.5 [facility] Comment on above: Performed By: #### Manish JAEGER [facility], #### [facility] ([id number]) [address] [place] [address] 67038 Lymphocytes (Bld) [#/Vol] 1.6 10*3/uL Normal 1.0-3.5 [facility] Comment on above: Performed By: #### Manish JAEGER [facility], #### [facility] ([id number]) [address] [place] [address] 82482 Lymphocytes/100 WBC (Bld) 17.6 % Normal [facility] Comment on above: Performed By: #### Manish JAEGER [facility], #### [facility] ([id number]) [address] [place] [address] 61556 MCH (RBC) [Entitic mass] 31.3 pg Normal 27-34 [facility] Comment on above: Performed By: #### Manish JAEGER [facility], #### [facility] ([id number]) [address] [place] [address] 35542 MCHC (RBC) [Mass/Vol] 34.3 g/dL Normal 32-36 [facility] Comment on above: Performed By: #### C NIKA JAEGER, #### [facility] ([id number]) [address] [place] [address] 97379 MCV (RBC) [Entitic vol] 91 fL Normal 80-100 [facility] Comment on above: Performed By: #### Manish JAEGER CMP, #### [facility] ([id number]) [address] [place] [address] 07044 Monocytes (Bld) [#/Vol] 0.6 10*3/uL Normal 0-0.9 [facility] Comment on above: Performed By: #### C NIKA JAEGER, #### [facility] ([id number]) [address] [place] [address] 37410 Monocytes/100 WBC (Bld) 6.6 % Normal [facility] Comment on above: Performed By: #### Manish JAEGER CMP, #### [facility] ([id number]) [address] [place] [address] 72479 Neutrophils/100 WBC (Bld) 75.1 % Normal [facility] Comment on above: Performed By: #### C NIKA JAEGER, #### [facility] ([id number]) [address] [place] [address] 52763 Platelet mean volume (Bld) [Entitic vol] 9.0 fL Normal 7-12 [facility] Comment on above: Performed By: #### Manish JAEGER CMP, #### [facility] ([id number]) [address] [place] [address] 66723 Platelets (Bld) [#/Vol] 173 10*3/uL Normal 150-450 [facility] Comment on above: Performed By: #### C MIL CMP, #### [facility] ([id number]) [address] [place] [address] 51999 RBC COUNT 4.39 X10E12/L Normal 3.80-5.20 [facility] Comment on above: Performed By: #### C BCA, [facility], #### [facility] ([id number]) [address] [place] [address] 55730 WBC (Bld) [#/Vol] 8.9 10*3/uL Normal 4.0-11.0 [facility] Comment on above: Performed By: #### C MIL, [facility], #### [facility] ([id number]) [address] [place] [address] 74469 DRUG SCREEN, URINEon 024 AMPHETAMINE/METHAMP Negative Normal NEG [facility] Comment on above: Result Comment: AMPH /METH screening cut off = 1000 ng/mL Performed By: #### C MIL, [facility], #### [facility] ([id number]) [address] [place] [address] 68155 BARBITURATES Negative Normal NEG [facility] Comment on above: Result Comment: Marcela iturates screening cut off value = 200 ng/mL Performed By: #### C MIL, [facility], #### [facility] ([id number]) [address] [place] [address] 82670 BENZODIAZEPINES Negative Normal NEG [facility] Comment on above: Result Comment: Jose odiazepines screening cut off value = 200 ng/mL Performed By: #### C BCA, [facility], #### [facility] ([id number]) [address] [place] [address] 04689 CANNABINOIDS Negative Normal NEG [facility] Comment on above: Result Comment: Tre abinoids/THC screening cut off value = 50 ng/mL Performed By: #### C BCA, CMP, #### [facility] ([id number]) [address] [place] [address] 82942 COCAINE METABOLITE Negative Normal NEG [facility] Comment on above: Result Comment: Coca ine screening cut off value = 300 ng/mL Performed By: #### C MIL, NIKA, #### [facility] ([id number]) [address] [place] [address] 93544 ECSTASY Negative Normal NEG [facility] Comment on above: Result Comment: Ecst asy screening cut off value = 500 ng/mL This report is intended for use in clinical monitoring or management of patients. Performed By: #### C NIKA JAEGER, #### [facility] ([id number]) [address] [place] [address] 80418 METHADONE Negative Normal NEG [facility] Comment on above: Result Comment: Meth adone screening cut off value = 300 ng/mL. Performed By: #### C NIKA JAEGER, #### [facility] ([id number]) [address] [place] [address] 05897 OPIATES Negative Normal NEG [facility] Comment on above: Result Comment: Opia krys screening cut off value = 300 ng/mL NOTE: This test is used for the detection of codeine, hydrocodone (>1000 ng/mL), morphine and hydromorphone (>900 ng/mL) in urine. Performed By: #### C MIL, NIKA, #### [facility] ([id number]) [address] [place] [address] 81877 OXYCODONE Negative Normal NEG [facility] Comment on above: Result Comment: Oxyc odone screening cut off value = 300 ng/mL NOTE: This test is used for the detection of oxycodone and oxymorphone in urine. Performed By: #### C MIL, CMP, #### [facility] ([id number]) [address] [place] [address] PHENCYCLIDINE Negative Normal NEG [facility] Comment on above: Result Comment: Phen cyclidine screening cut off value = 25 ng/mL Performed By: #### C NIKA JAEGER, #### [facility] ([id number]) [address] [place] [address] 17005 HBV surface Ag IA Qlon 02-18 HEPATITIS B SURF AG Negative Normal NEG [facility] Comment on above: Performed By: #### C NIKA JAEGER, #### [facility] ([id number]) [address] [place] [address] 85512 HCG ( test) Ql (U)o n 02-19-2024 Interpretation and review of laboratory results Abnormal [facility] Preg Test, Ur Positive [facility] HCV Ab IA Qlon 02-19-2024 ANTI HCV W/PCR REFLX Non-Reactive Normal NRCT Pr [facility] Comment on above: Result Comment: If recent infection suspected, recommend repeat testing (>2 months). Szuarl-bv-bqvfub ratio is <0.80. Performed By: #### C MIL [facility], #### [facility] ([id number]) [address] [place] [address] 11696 HGB A1C (GLYCO-HGB)on 2023 Glucose [Mass/Vol] 105 mg/dL Normal [facility] Comment on above: Performed By: #### C NIKA JAEGER, #### [facility] ([id number]) [address] [place] [address] 22272 HbA1c (Bld) [Mass fraction] 5.3 % Normal 4.4-5.6 [facility] Comment on above: Result Comment: NOTE ADA Guidelines Result HgbA1c Normal : less than 5.7 % Prediabetes : 5.7 % to 6.4 % Diabetes : > 6.4 % Use with caution in patients with abnormal hemoglobin variants as the half-life of red blood cells and in vivo glycation rates are affected. Performed By: #### C NIKA JAEGER, #### [facility] ([id number]) [address] [place] [address] 50291 HIV 1+2 Ab+HIV1 p24 Ag IA Ql on 02-19-2024 HIV 1 and 2 Ab/Ag Screen Non-Reactive Normal NRCT [facility] Comment on above: Result Comment: This [...] results or diagnoses. Performed By: #### C MIL [facility], #### [facility] ([id number]) [address] [place] [address] 36593 Rubella virus IgG Qn (S)on 1 RUBELLA IgG 119 IU/mL Normal [facility] Comment on above: Result Comment: Interpretation-------- <8 NEGATIVE-considered Not Immune 8-9 EQUIVOCAL-consider retesting with new specimen >9 POSITIVE-considered Immune Performed By: #### Manish JAEGER CMP, #### [facility] ([id number]) [address] [place] [address] 08088 T. pallidum IgG+IgM IA Ql (S )on 02-19-2024 Syphilis Total <0.2 Normal 0.0-0.8 [facility] Comment on above: Result Comment: NON REACTIVE No serologic evidence of infection to Treponema pallidum (syphilis). Repeat testing may be considered in patients with suspected acute or primary syphilis in 2 to 4 weeks. Performed By: #### C BCA, CMP, [id number] #### [facility] ([id number]) [address] [place] [address] URINE CULTUREon 02-19-2024 Bacteria identified Cx Nom (U) CULTURE RESULTS 10-50,000 ORGANISMS/mL NORMAL UROGENITAL KACEY Normal [facility] Comment on above: Performed By: #### C BCA, [facility], #### [facility] ([id number]) [address] [place] [address] 75763 Urinalysis macro (dipstick) panel (U)on 02-19-2024 Bilirubin, UA Negative Negative - 4(70) +++ mg/dL [facility] Blood, UA Negative Negative - 50 Hosea/mcL [facility] Clarity, UA Clear [facility] Color, UA Yellow [facility] Glucose, UA Negative Negative - 2000(110) ++++ mg/dL [facility] Interpretation and review of laboratory results Normal [facility] Ketones, UA Negative Negative - 160(16) ++++ mg/dL [facility] Leukocytes, UA Negative Negative - 500+++ Greg/mcL [facility] Nitrite, UA Negative Negative - Positive [facility] pH, UA 5.5 5 - 9 [facility] Protein, UA Negative Negative - 2000(20) ++++ mg/dL [facility] Spec Grav, UA 1.015 1 - 1.03 [facility] Urobilinogen, UA 1.0 0.2 - 12 mg/dL [facility] URINE CULTUREon 02-05-2024 Bacteria identified Cx Nom (U) CULTURE RESULTS 10-50,000 ORGANISMS/mL NORMAL UROGENITAL KACEY Normal [facility] Comment on above: Performed By: #### 6 30-4 #### [facility] ([id number]) [address], [address] [place] [address] Alanine aminotransferase [En zymatic activity/volume] in Serum or PlasmaOrdered By: Krzysztof Montesinos on 11-24-2023 ALT [Catalytic activity/Vol] 9 U/L Normal 7-52 [facility] Comment on above: Performed By: #### C MP #### [facility] [address] [place] [address] [place] Albumin [Mass/volume] in Ser um or Plasma by Bromocresol green (BCG) dye binding methoOrdered By: Krzysztof Montesinos on 11-24-2023 Albumin BCG dye [Mass/Vol] 4.3 g/dL 3.5-5.7 [facility] Alkaline phosphatase [Enzyma tic activity/volume] in Serum or PlasmaOrdered By: Krzysztof Montesinos on 11-24-2023 ALP [Catalytic activity/Vol] 39 U/L Normal 34-104 [facility] Comment on above: Performed By: #### C MP #### [facility] [address] [place] [id number] [place] Aspartate aminotransferase [ Enzymatic activity/volume] in Serum or PlasmaOrdered By: Krzysztof Montesinos on 11-24-2023 AST [Catalytic activity/Vol] 14 U/L Normal 13-39 [facility] Comment on above: Performed By: #### C MP #### [facility] [address] [place] [address] [place] Bilirubin.total [Mass/volume ] in Serum or PlasmaOrdered By: Krzysztof Montesinos on 11-24-2023 Bilirubin [Mass/Vol] 1.0 mg/dL Normal 0.3-1.0 [facility] Comment on above: Performed By: #### C MP #### [facility] [address] [place] [address] [place] Calcium [Mass/volume] in Ser um or PlasmaOrdered By: Krzysztof Montesinos on 11-24-2023 Calcium [Mass/Vol] 9.0 mg/dL Normal 8.6-10.3 [facility] Comment on above: Performed By: #### C MP #### [address] Carbon dioxide, total [Moles /volume] in Serum or PlasmaOrdered By: Krzysztof Montesinos on 11-24-2023 CO2 [Moles/Vol] 25.4 mmol/L Normal 21.0-31.0 [facility] Comment on above: Performed By: #### C MP #### [address] Chloride [Moles/volume] in S delgado or PlasmaOrdered By: Krzysztof Montesinos on 11-24-2023 Chloride [Moles/Vol] 111 mmol/L High 98-107 [facility] Comment on above: Performed By: #### C MP #### [address] Comprehensive Metabolic Pane thomas 11-24-2023 Albumin [Mass/Vol] 4.3 g/dL Normal 3.5-5.7 [facility] Comment on above: Performed By: #### C MP #### [address] Creatinine Clr Calc Pharmacy 94.43 Normal [facility] Comment on above: Result Comment: PERF ORMED BY: [place] [address] PATHOLOGIST BEHAVIORAL HEALTH ASSISTANT MARGARITA CUELLAR M.D. Performed By: #### C MP #### [address] GFR/1.73 sq M.predicted MDRD (S/P/Bld) [Vol rate/Area] mL/min/{1.73_m2} Normal [facility] Comment on above: Performed By: #### C MP #### [address] Creatinine [Mass/volume] in Serum or PlasmaOrdered By: Krzysztof Montesinos on 11-24-2023 Creatinine [Mass/Vol] 0.86 mg/dL Normal 0.60-1.20 [facility] Comment on above: Performed By: #### C MP #### [facility] [address] Glucose [Mass/volume] in Ser um or PlasmaOrdered By: Krzysztof Montesinos on 11-24-2023 Glucose [Mass/Vol] 94 mg/dL Normal 70-100 [facility] Comment on above: ADA recommended refe rence rangeRandom Glucose Reference Range is dependent on time and content of last meal. Glucose of more than 200 mg/dL in a nonstressed, ambulatory subject supports the diagnosis of Diabetes Mellitus. Result Comment: [place] om Glucose Reference Range is dependent on time and content of last meal. Glucose of more than 200 mg/dL in a nonstressed, ambulatory subject supports the diagnosis of Diabetes Mellitus. ADA recommended reference range Performed By: #### C MP #### [address] No Panel InformationOrdered By: Krzysztof Montesinos on 11-24-2023 Estimated GFR (CKD-EPI) > 60.0 mL/Min [facility] Creatinine Clearance (Chem 94.43 [facility] Potassium [Moles/volume] in Serum or PlasmaOrdered By: Krzysztof Montesinos on 11-24-2023 Potassium [Moles/Vol] 4.7 mmol/L Normal 3.5-5.1 [facility] Comment on above: Performed By: #### C MP #### [address] Protein [Mass/volume] in Ser um or PlasmaOrdered By: Krzysztof Montesinos on 11-24-2023 Protein [Mass/Vol] 6.7 g/dL Normal 6.4-8.9 [facility] Comment on above: Performed By: #### C MP #### [address] Serum globulin measurement b y calculation (mass/volume)Ordered By: Krzysztof Montesinos on 11-24-2023 Globulin (S) [Mass/Vol] 2.4 g/dL Normal F [facility] Comment on above: Performed By: #### C MP #### [facility] [address] [place] [address] Serum or plasma albumin/glob ulin mass ratioOrdered By: Krzysztof Montesinos on 11-24-2023 Albumin/Globulin [Mass ratio] 1.8 {ratio} Normal [facility] Comment on above: Performed By: #### C MP #### [address] Serum or plasma anion gap de terminationOrdered By: Krzysztof Montesinos on 11-24-2023 Anion gap [Moles/Vol] 9.3 mmol/L Normal 6.0-15.0 [facility] Comment on above: Performed By: #### C MP #### [address] Sodium [Moles/volume] in Ser um or PlasmaOrdered By: Krzysztof Montesinos on 11-24-2023 Sodium [Moles/Vol] 141 mmol/L Normal 136-145 [facility] Comment on above: Performed By: #### C MP #### [address] Urea nitrogen [Mass/volume] in Serum or PlasmaOrdered By: Krzysztof Montesinos on 11-24-2023 Urea nitrogen [Mass/Vol] 12 mg/dL Normal 7-25 [facility] Comment on above: Performed By: #### C MP #### [address] Cholesterol [Mass/volume] in Serum or PlasmaOrdered By: Krzysztof Montesinos on 11-23-2023 Cholesterol [Mass/Vol] 129 mg/dL Low 140-200 [facility] Comment on above: Chol less than 200 m g/dl low riskChol 201-239 mg/dl borderline riskChol 240 mg/dl and greater high risk Result Comment: Chol less than 200 mg/dl low risk Chol 201-239 mg/dl borderline risk Chol 240 mg/dl and greater high risk Performed By: #### L IPID, TSH3 wRFLX, [id number] #### [facility] [address] [place] [address] [place] Cholesterol in LDL Calc [Mas s/Vol]Ordered By: Krzysztof Montesinos on 11-23-2023 Cholesterol in LDL [Mass/Vol] 64 mg/dL 0-100 [facility] Comment on above: LDL ATP III CLASSIFI CATIONLDL less than 100 mg/dL OptimalLDL 100-129 mg/dL Near or above optimalLDL 130-159 mg/dL Borderline highLDL 160-189 mg/dL HighLDL greater than 189 mg/dL Very high Cholesterol in VLDL Calc [Ma ss/Vol]Ordered By: Krzysztof Montesinos on 11-23-2023 Cholesterol in VLDL [Mass/Vol] 7 mg/dL [facility] Lipid Panelon 11-23-2023 LDL Cholesterol,Calculated 64 mg/dL Normal 0-100 [facility] Comment on above: Result Comment: LDL ATP III CLASSIFICATION LDL less than 100 mg/dL Optimal LDL 100-129 mg/dL Near or above optimal LDL 130-159 mg/dL Borderline high LDL 160-189 mg/dL High LDL greater than 189 mg/dL Very high Performed By: #### L IPID, TSH3 wRFLX, [id number] #### [facility] [address] [place] [id number] [facility] Triglyceride w/Reflex 39 mg/dL Normal 0-149 [facility] Comment on above: Result Comment: TRIG ATP III CLASSIFICATION TRIG less than 150 mg/dL Normal TRIG 150-199 mg/dL Borderline high TRIG 200-500 mg/dL High TRIG greater than 500 mg/dL Very high Standard traceable to the Center for Disease Conrtrol and Prevention (CDC) test method. Performed By: #### L IPID, TSH3 wRFLX, [id number] #### [facility] [address] [id number] [facility] VLDL CHOLESTEROL 7 mg/dL Normal [facility] Comment on above: Performed By: #### L IPID, TSH3 wRFLX, [id number] #### [facility] [address] [id number] [place] Serum or plasma high density lipoprotein (HDL) cholesterol measurementOrdered By: Krzysztof Montesinos on 11-23-2023 Cholesterol in HDL [Mass/Vol] 57 mg/dL Normal 23-92 [facility] Comment on above: HDL CHOL ATP-III CLA SSIFICATION Cardiovascular RiskHDL > or equal to 60 mg/dL LOWHDL < 40 mg/dL HIGH Result Comment: HDL CHOL ATP-III CLASSIFICATION Cardiovascular Risk HDL > or equal to 60 mg/dL LOW HDL < 40 mg/dL HIGH Performed By: #### L IPID, TSH3 wRFLX, [id number] #### [facility] [address] Serum or plasma total choles terol/high density lipoprotein (HDL) cholesterol mass ratOrdered By: Krzysztof Montesinos on 11-23-2023 Cholesterol.total/Choles terol in HDL [Mass ratio] 2.3 {ratio} Normal <5.0 [facility] Comment on above: Performed By: #### L IPID, TSH3 wRFLX, [id number] #### [facility] [address] Thyroid Stim Hormone w/Rflxo n 11-23-2023 Thyroid Stim Hormone w/Rflx 1.52 u[iU]/mL Normal 0.45-5.33 [facility] Comment on above: Performed By: #### L IPID, TSH3 wRFLX, [id number] #### [facility] [address] [place] [address] Thyrotropin [Units/volume] i n Serum or PlasmaOrdered By: Krzysztof Montesinos on 11-23-2023 TSH Qn 1.52 m[IU]/L 0.45-5.33 [facility] Triglyceride [Mass/volume] i n Serum or PlasmaOrdered By: Krzysztof Montesinos on 11-23-2023 Triglyceride [Mass/Vol] 39 mg/dL 0-[address] [facility] Comment on above: TRIG ATP III CLASSIF ICATIONTRIG less than 150 mg/dL NormalTRIG 150-199 mg/dL Borderline highTRIG 200-500 mg/dL High TRIG greater than 500 mg/dL Very highStandard traceable to the Center for Disease Conrtrol and Prevention (CDC) test method. Vitamin D 25 Hydroxy Totalon 11-23-2023 Vitamin D 25 Hydroxy Total 23.9 ng/mL Low 30-100 [facility] Comment on above: Result Comment: NATE MIN D STATUS 25(OH)VITAMIN D RANGE (ng/mL) Deficient <20 Insufficient 20 to <30 Sufficient 30 to 100 Reference: Ysabel Robertson Bischoff-Ferrari HA, et al. Evaluation,treatment, and prevention of vitamin D deficiency; an Endocrine Society clinical practice guideline. JCEM. 2010; 96(7):1911-. PERFORMED BY: [facility] [address] [place] [address] PATHOLOGIST BEHAVIORAL HEALTH ASSISTANT MARGARITA CUELLAR M.D. Performed By: #### L IPID, TSH3 wRFLX, [id number] #### [facility] [address] Vitamin D+Metabolites [Mass/ volume] in Serum or PlasmaOrdered By: Krzysztof Montesinos on 11-23-2023 Vitamin D+Metabolites [Mass/Vol] 23.9 ng/mL Low 30-100 [facility] Comment on above: VITAMIN D STATUS 25( [place])VITAMIN D RANGE (ng/mL) Deficient <20 Insufficient 20 to <30Sufficient 30 to 100Reference: Ysabel Robertson, Jia CABRERA, et al. Evaluation,treatment, and prevention of vitamin D deficiency; an Endocrine Society clinical practice guideline. JCEM. 2010; 96(7):1911-30. BASIC METABOLIC PANLon 11-21 Anion gap [Moles/Vol] 6 mmol/L Normal 5-15 [facility] Comment on above: Performed By: #### C BCA, CMP, 58938-5 #### [facility] ([id number]) [address] [facility] [place] [address] Calcium [Mass/Vol] 8.6 mg/dL Normal 8.5-10.5 [facility] Comment on above: Performed By: #### C NIKA JAEGER, #### [facility] ([id number]) [address] [place] [address] 82768 Chloride [Moles/Vol] 108 mmol/L Normal 98-109 [facility] Comment on above: Performed By: #### C NIKA JAEGER, #### [facility] ([id number]) [address] [place] [address] 57036 CO2 [Moles/Vol] 22 mmol/L Normal 22-32 [facility] Comment on above: Performed By: #### C NIKA JAEGER, #### [facility] ([id number]) [address] [place] [address] 55537 Creatinine [Mass/Vol] 0.84 mg/dL Normal 0.40-1.00 [facility] Comment on above: Result Comment: METH OD TRACEABLE TO IDMS STANDARD Performed By: #### C NIKA JAEGER, #### [facility] ([id number]) [address] [place] [address] 72958 eGFR (CKD-EPI) NON-RACE DEPENDENT >90 Normal >59 [facility] Comment on above: Result Comment: Reported eGFR is based on the CKD-EPI 2020 equation that does not use a race coefficient. Performed By: #### C NIKA JAEGER, #### [facility] ([id number]) [address] [place] [address] 95613 Glucose [Mass/Vol] 98 mg/dL Normal 65-99 [facility] Comment on above: Performed By: #### C NIKA JAEGER, #### [facility] ([id number]) [address] [place] [address] 09972 Potassium [Moles/Vol] 3.3 mmol/L Low 3.5-5.0 [facility] Comment on above: Performed By: #### C NIKA JAEGER, #### [facility] ([id number]) [address] [place] [address] 29167 Sodium [Moles/Vol] 136 mmol/L Normal 134-146 [facility] Comment on above: Performed By: #### C BCA, CMP, #### [facility] ([id number]) [address] [place] [address] 13927 Urea nitrogen [Mass/Vol] 14 mg/dL Normal 5-23 [facility] Comment on above: Performed By: #### C BCA, CMP, #### [facility] ([id number]) [address] [place] [address] 10318 CBC AND AUTO DIFFon 11-21- 24 ABSOLUTE BASOPHIL 0.0 X10E9/L Normal 0.0-0.2 [facility] Comment on above: Performed By: #### C BCA, CMP, #### [facility] ([id number]) [address] [place] [address] 46087 ABSOLUTE NEUTROPHIL 5.3 X10E9/L Normal 1.5-6.6 [facility] Comment on above: Performed By: #### C BCA, CMP, #### [facility] ([id number]) [address] [place] [address] 24141 Basophils/100 WBC (Bld) 0.5 % Normal [facility] Comment on above: Performed By: #### C BCA, CMP, #### [facility] ([id number]) [address] [place] [address] 79222 Eosinophils (Bld) [#/Vol] 0.1 10*3/uL Normal 0.0-0.4 [facility] Comment on above: Performed By: #### C BCA, CMP, #### [facility] ([id number]) [address] [place] [address] 81395 Eosinophils/100 WBC (Bld) 0.7 % Normal [facility] Comment on above: Performed By: #### Manish JAEGER [facility], #### [facility] ([id number]) [address] [place] [address] 84428 Erythrocyte distribution width (RBC) [Ratio] 14.2 % Normal 11.5-15.0 [facility] Comment on above: Performed By: #### Manish JAEGER CMP, #### [facility] ([id number]) [address] [place] [address] 82815 Hematocrit (Bld) [Volume fraction] 41.6 % Normal 35-47 [facility] Comment on above: Performed By: #### Manish JAEGER [facility], #### [facility] ([id number]) [address] [place] [address] 52275 Hemoglobin (Bld) [Mass/Vol] 14.3 g/dL Normal 11.7-15.5 [facility] Comment on above: Performed By: #### Manish JAEGER [facility], #### [facility] ([id number]) [address] [place] [address] 33633 Lymphocytes (Bld) [#/Vol] 1.8 10*3/uL Normal 1.0-3.5 [facility] Comment on above: Performed By: #### Manish JAEGER CMP, #### [facility] ([id number]) [address] [place] [address] 64009 Lymphocytes/100 WBC (Bld) 23.3 % Normal [facility] Comment on above: Performed By: #### Manish JAEGER CMP, #### [facility] ([id number]) [address] [place] [address] 18438 MCH (RBC) [Entitic mass] 30.6 pg Normal 27-34 [facility] Comment on above: Performed By: #### C NIKA JAEGER, #### [facility] ([id number]) [address] [place] [address] 91908 MCHC (RBC) [Mass/Vol] 34.5 g/dL Normal 32-36 [facility] Comment on above: Performed By: #### Manish JAEGER CMP, #### [facility] ([id number]) [address] [place] [address] 27527 MCV (RBC) [Entitic vol] 89 fL Normal 80-100 [facility] Comment on above: Performed By: #### Manish JAEGER CMP, #### [facility] ([id number]) [address] [place] [address] 37584 Monocytes (Bld) [#/Vol] 0.5 10*3/uL Normal 0-0.9 [facility] Comment on above: Performed By: #### Manish JAEGER CMP, #### [facility] ([id number]) [address] [place] [address] 75293 Monocytes/100 WBC (Bld) 6.6 % Normal [facility] Comment on above: Performed By: #### Manish JAEGER CMP, #### [facility] ([id number]) [address] [place] [address] 18931 Neutrophils/100 WBC (Bld) 68.9 % Normal [facility] Comment on above: Performed By: #### Manish JAEGER CMP, #### [facility] ([id number]) [address] [place] [address] 31194 Platelet mean volume (Bld) [Entitic vol] 9.0 fL Normal 7-12 [facility] Comment on above: Performed By: #### Manish JAEGER CMP, #### [facility] ([id number]) [address] [place] [address] 54772 Platelets (Bld) [#/Vol] 186 10*3/uL Normal 150-450 [facility] Comment on above: Performed By: #### C NIKA JAEGER, #### [facility] ([id number]) [address] [place] [address] 65941 RBC COUNT 4.68 X10E12/L Normal 3.80-5.20 [facility] Comment on above: Performed By: #### C NIKA JAEGER, #### [facility] ([id number]) [address] [place] [address] 34073 WBC (Bld) [#/Vol] 7.7 10*3/uL Normal 4.0-11.0 [facility] Comment on above: Performed By: #### C MIL [facility], #### [facility] ([id number]) [address] [place] [address] 18785 DRUG SCREEN, URINEon 024 AMPHETAMINE/METHAMP Negative Normal NEG [facility] Comment on above: Result Comment: AMPH /METH screening cut off = 1000 ng/mL Performed By: #### C NIKA JAEGER, #### [facility] ([id number]) [address] [place] [address] [place] [address] BARBITURATES Negative Normal NEG [facility] Comment on above: Result Comment: Marcela iturates screening cut off value = 200 ng/mL Performed By: #### C NIKA JAEGER, #### [facility] ([id number]) [address] [place] [address] [place] [address] BENZODIAZEPINES Negative Normal NEG [facility] Comment on above: Result Comment: Jose odiazepines screening cut off value = 200 ng/mL Performed By: #### C NIKA JAEGER, #### [facility] ([id number]) [address] [place] [address] 32311 CANNABINOIDS Negative Normal NEG [facility] Comment on above: Result Comment: Tre abinoids/THC screening cut off value = 50 ng/mL Performed By: #### C BCA, [facility], #### [facility] ([id number]) [address] [place] [address] 52150 COCAINE METABOLITE Negative Normal NEG [facility] Comment on above: Result Comment: Coca ine screening cut off value = 300 ng/mL Performed By: #### C MIL, [facility], #### [facility] ([id number]) [address] [place] [address] 94804 ECSTASY Negative Normal NEG [facility] Comment on above: Result Comment: Ecst asy screening cut off value = 500 ng/mL This report is intended for use in clinical monitoring or management of patients. Performed By: #### C MIL, [facility], #### [facility] ([id number]) [address] [place] [address] 95734 METHADONE Negative Normal [facility] Comment on above: Result Comment: Meth adone screening cut off value = 300 ng/mL. Performed By: #### C MIL, [facility], #### [facility] ([id number]) [address] [place] [address] 14766 OPIATES Negative Normal NEG [facility] Comment on above: Result Comment: Opia krys screening cut off value = 300 ng/mL NOTE: This test is used for the detection of codeine, hydrocodone (>1000 ng/mL), morphine and hydromorphone (>900 ng/mL) in urine. Performed By: #### C BCA, CMP, #### [facility] ([id number]) [address] [place] [address] 42941 OXYCODONE Negative Normal NEG [facility] Comment on above: Result Comment: Oxyc odone screening cut off value = 300 ng/mL NOTE: This test is used for the detection of oxycodone and oxymorphone in urine. Performed By: #### C BCA, CMP, 31559-0 #### [facility] ([id number]) [address] [place] [address] 91203 PHENCYCLIDINE Negative Normal NEG [facility] Comment on above: Result Comment: Phen cyclidine screening cut off value = 25 ng/mL Performed By: #### C BCA, CMP, 57644-8 #### [facility] ([id number]) [address] [place] [address], [place] [address] ECG 12 lead ECGon 11-22-2023 ECG 12 lead ECG [facility] Main [address] [address] Electrocardiograph Report Signed Patient: Megan Collado MR#: [id number] : 2000 Acct:[id number] Age/Sex: 23 / F ADM Date: 11/22/23 Loc: Room: [address] [place] [address] Type: ADM IN Attending Dr: Krzysztof Montesinos [...] Sinus rhythm with sinus arrhythmia with short TX Otherwise normal ECG No previous ECGs available Confirmed by [facility] ([id number][facility] on 11/23/2023 9:57:14 AM Referred By: Electronically Signed By:GEMA SLAUGHTER MD [facility] Transcribed By: MUS Signed By Gema Slaughter MD, FACC 11/23/23 0957 Normal [facility] ETHANOLon 11-22-2023 Ethanol [Mass/Vol] mg/dL Normal 0.00-0.08 [facility] Comment on above: Result Comment: This report is intended for use in clinical monitoring or management of patients. Performed By: #### C NIKA JAEGER, 90691-5 #### [facility] ([id number]) [address] [place] [address] 71107 HCG ( test) Ql (U)o n 11-22-2023 Beta HCG ( test) Ql (U) Negative Normal NEG [facility] Comment on above: Performed By: #### 2 106-3 #### [facility] ([id number]) [address] [place] [address] 30370 TSH Qnon 11-22-2023 TSH 1.42 uIU/mL Normal 0.49-4.67 [facility] Comment on above: Performed By: #### C MIL [facility], #### [facility] ([id number]) [address] [place] [address] [place] [address] URN MACROSCOPIC NURon 2023 BILIRUBIN BAO Negative Normal NEG [facility] Comment on above: Performed By: #### N UM #### [facility] ([id number]) [address] [place] [address] 56583 BLOOD/HGB BAO Negative Normal NEG [facility] Comment on above: Performed By: #### N UM #### [facility] ([id number]) [address] [place] [address] [place] [address] GLUCOSE BAO Negative Normal NEG [facility] Comment on above: Performed By: #### N UM #### [facility] ([id number]) [address] [place] [address] [place] [address] KETONES BAO Negative Normal NEG [facility] Comment on above: Performed By: #### N UM #### [facility] ([id number]) [address] [place] [address] 76433 LEUKOCYTE ESTERASE BAO Negative Normal NEG [facility] Comment on above: Performed By: #### N UM #### [facility] ([id number]) [address] [place] [address] 28726 NITRITE BAO Negative Normal NEG [facility] Comment on above: Performed By: #### N UM #### [facility] ([id number]) [address] [place] [address] 82031 PH BAO 6.5 Normal 5.0-8.5 [facility] Comment on above: Performed By: #### N UM #### [facility] ([id number]) [address] [place] [address] 95524 PROTEIN BAO Negative Normal NEG [facility] Comment on above: Performed By: #### N UM #### [facility] ([id number]) [address] [place] [address] 66383 SPECIFIC GRAVITY BAO 1.010 Normal 1.003-1.035 [facility] Comment on above: Performed By: #### N UM #### [facility] ([id number]) [address] [place] [address] 07579 UROBILINOGEN BAO 0.2 eu/dL Normal <1.1 [facility] Comment on above: Performed By: #### N UM #### [facility] ([id number]) [address] [place] [address] 31662 HCG.beta subunit IA 3rd IS Q non 08-29-2023 SERUM B HCG,3RD I.S. <5 Normal [facility] Comment on above: Result Comment: [...] neoplasms. Performed By: #### 2 0415-6 #### [facility] ([id number]) [address] [place] [address], [address] [place] [address] HCG.beta subunit IA 3rd IS Q non 08-22-2023 HCG.beta subunit Qn 11 m[IU]/mL Normal [facility] Comment on above: Result Comment: [...] neoplasms. Performed By: #### 2 0415-6 #### [facility] ([id number]) [address] [place] [address], [address] [place] [address] HCG.beta subunit IA 3rd IS Q non 08-13-2023 HCG.beta subunit Qn 60 m[IU]/mL Normal [facility] Comment on above: Result Comment: [...] neoplasms. Performed By: #### 2 0415-6 #### [facility] ([id number]) [address] [facility], [address] [place] [address] HCG.beta subunit IA 3rd IS Q non 08-06-2023 HCG.beta subunit Qn 394 m[IU]/mL Normal [facility] Comment on above: Result Comment: [...] neoplasms. Performed By: #### 2 0415-6 #### [facility] ([id number]) [address] [facility] [place] [address] CBC AND AUTO DIFFon 07-30-19 24 ABSOLUTE BASOPHIL 0.0 X10E9/L Normal 0.0-0.2 [facility] Comment on above: Performed By: #### C NIKA JAEGER, #### [facility] ([id number]) [address] [place] [address] 24419 ABSOLUTE NEUTROPHIL 6.4 X10E9/L Normal 1.5-6.6 [facility] Comment on above: Performed By: #### C MIL CMP, #### [facility] ([id number]) [address] [place] [address] 94107 Basophils/100 WBC (Bld) 0.5 % Normal [facility] Comment on above: Performed By: #### C NIKA JAEGER, #### [facility] ([id number]) [address] [place] [address] 42290 Eosinophils (Bld) [#/Vol] 0.0 10*3/uL Normal 0.0-0.4 [facility] Comment on above: Performed By: #### C NIKA JAEGER, #### [facility] ([id number]) [address] [place] [address] 13370 Eosinophils/100 WBC (Bld) 0.2 % Normal [facility] Comment on above: Performed By: #### Manish JAEGER CMP, #### [facility] ([id number]) [address] [place] [address] 77256 Erythrocyte distribution width (RBC) [Ratio] 14.2 % Normal 11.5-15.0 [facility] Comment on above: Performed By: #### C MIL CMP, #### [facility] ([id number]) [address] [place] [address] 94481 Hematocrit (Bld) [Volume fraction] 43.4 % Normal 35-47 [facility] Comment on above: Performed By: #### C BCANIKA, #### [facility] ([id number]) [address] [place] [address] 38775 Hemoglobin (Bld) [Mass/Vol] 14.9 g/dL Normal 11.7-15.5 [facility] Comment on above: Performed By: #### C MIL CMP, #### [facility] ([id number]) [address] [place] [address] 62432 Lymphocytes (Bld) [#/Vol] 1.4 10*3/uL Normal 1.0-3.5 [facility] Comment on above: Performed By: #### Manish JAEGER CMP, #### [facility] ([id number]) [address] [place] [address] 06600 Lymphocytes/100 WBC (Bld) 16.3 % Normal [facility] Comment on above: Performed By: #### Manish JAEGER CMP, #### [facility] ([id number]) [address] [place] [address] 05719 MCH (RBC) [Entitic mass] 30.9 pg Normal 27-34 [facility] Comment on above: Performed By: #### C MIL CMP, #### [facility] ([id number]) [address] [place] [address] 82950 MCHC (RBC) [Mass/Vol] 34.4 g/dL Normal 32-36 [facility] Comment on above: Performed By: #### Manish JAEGER CMP, #### [facility] ([id number]) [address] [place] [address] 47074 MCV (RBC) [Entitic vol] 90 fL Normal 80-100 [facility] Comment on above: Performed By: #### Manish JAEGER CMP, #### [facility] ([id number]) [address] [place] [address] 92533 Monocytes (Bld) [#/Vol] 0.7 10*3/uL Normal 0-0.9 [facility] Comment on above: Performed By: #### C NIKA JAEGER, #### [facility] ([id number]) [address] [place] [address] 35588 Monocytes/100 WBC (Bld) 7.8 % Normal [facility] Comment on above: Performed By: #### Manish JAEGER CMP, #### [facility] ([id number]) [address] [place] [address] 56694 Neutrophils/100 WBC (Bld) 75.2 % Normal [facility] Comment on above: Performed By: #### Manish JAEGER CMP, #### [facility] ([id number]) [address] [place] [address] 62707 Platelet mean volume (Bld) [Entitic vol] 8.5 fL Normal 7-12 [facility] Comment on above: Performed By: #### Manish JAEGER [facility], #### [facility] ([id number]) [address] [place] [address] 87647 Platelets (Bld) [#/Vol] 188 10*3/uL Normal 150-450 [facility] Comment on above: Performed By: #### Manish JAEGER CMP, #### [facility] ([id number]) [address] [place] [address] 68231 RBC COUNT 4.83 X10E12/L Normal 3.80-5.20 [facility] Comment on above: Performed By: #### Manish JAEGER CMP, #### [facility] ([id number]) [address] [place] [address] 45851 WBC (Bld) [#/Vol] 8.5 10*3/uL Normal 4.0-11.0 [facility] Comment on above: Performed By: #### C BCA, CMP, #### [facility] ([id number]) [address] [place] [address] 89383 COMPREHENSIVE METABOLIC PANE Thomas 07-30-2023 Albumin [Mass/Vol] 4.7 g/dL Normal 3.2-5.3 [facility] Comment on above: Performed By: #### C BCA, CMP, #### [facility] ([id number]) [address] [place] [address] 78335 ALP [Catalytic activity/Vol] 57 U/L Normal 39-130 [facility] Comment on above: Performed By: #### C BCA CMP, #### [facility] ([id number]) [address] [place] [address] 80269 ALT [Catalytic activity/Vol] 12 U/L Normal 0-31 [facility] Comment on above: Performed By: #### C BCA, CMP, #### [facility] ([id number]) [address] [place] [address] 78765 Anion gap [Moles/Vol] 6 mmol/L Normal 5-15 [facility] Comment on above: Performed By: #### C BCA, CMP, #### [facility] ([id number]) [address] [place] [address] 72104 AST [Catalytic activity/Vol] 18 U/L Normal 0-41 [facility] Comment on above: Performed By: #### C BCA, CMP, #### [facility] ([id number]) [address] [place] [address] 37640 Bilirubin [Mass/Vol] 0.8 mg/dL Normal 0.3-1.2 [facility] Comment on above: Performed By: #### C BCA CMP, #### [facility] ([id number]) [address] [place] [address] 66194 Calcium [Mass/Vol] 9.4 mg/dL Normal 8.5-10.5 [facility] Comment on above: Performed By: #### C NIKA JAEGER, #### [facility] ([id number]) [address] [place] [address] 67811 Chloride [Moles/Vol] 107 mmol/L Normal 98-109 [facility] Comment on above: Performed By: #### C NIKA JAEGER, #### [facility] ([id number]) [address] [place] [address] 97629 CO2 [Moles/Vol] 23 mmol/L Normal 22-32 [facility] Comment on above: Performed By: #### C NIKA JAEGER, #### [facility] ([id number]) [address] [place] [address] 06016 Creatinine [Mass/Vol] 0.63 mg/dL Normal 0.40-1.00 [facility] Comment on above: Result Comment: METH OD TRACEABLE TO IDMS STANDARD Performed By: #### C NIKA JAEGER, #### [facility] ([id number]) [address] [place] [address] 92860 eGFR (CKD-EPI) NON-RACE DEPENDENT >90 Normal >59 [facility] Comment on above: Result Comment: Reported eGFR is based on the CKD-EPI 2020 equation that does not use a race coefficient. Performed By: #### C NIKA JAEGER, #### [facility] ([id number]) [address] [place] [address] 58168 Glucose [Mass/Vol] 92 mg/dL Normal 65-99 [facility] Comment on above: Performed By: #### C NIKA JAEGER, #### [facility] ([id number]) [address] [place] [address] 58506 Potassium [Moles/Vol] 3.5 mmol/L Normal 3.5-5.0 [facility] Comment on above: Performed By: #### C MIL CMP, #### [facility] ([id number]) [address] [place] [address] 54359 Protein [Mass/Vol] 7.8 g/dL Normal 6.0-8.0 [facility] Comment on above: Performed By: #### C MIL [facility], #### [facility] ([id number]) [address] [place] [address] 56586 Sodium [Moles/Vol] 136 mmol/L Normal 134-146 [facility] Comment on above: Performed By: #### C MIL [facility], #### [facility] ([id number]) [address] [place] [address] 27497 Urea nitrogen [Mass/Vol] 12 mg/dL Normal 5-23 [facility] Comment on above: Performed By: #### Manish JAEGER [facility], #### [facility] ([id number]) [address] [place] [address] 41350 HCG.beta subunit IA 3rd IS Q non 07-30-2023 [place] [address] m[IU]/mL Normal P [facility] [...] or nontrophoblastic neoplasms. Performed By: #### C MLI, [facility], 81959-3 #### [facility] ([id number]) [address] [place] [address], [place] [address] US PREG LESS THAN 14 WKS WIT [...] Rodrigues MD on 07/30/2023 2:51 PM Normal [facility] US ABDOMEN LIMITEDon US ABDOMEN LIMITED EXAMINATION: LIMITED ABDOMINAL ULTRASOUND 05/29/2023 9:27 am COMPARISON: None. HISTORY: ORDERING SYSTEM PROVIDED HISTORY: Abdominal mass, right lower quadrant TECHNOLOGIST PROVIDED HISTORY: This procedure can be scheduled via [employer]. Access your [employer] account by visiting [employer]. RUQ lump with straining or sitting up. [...] Zay Boyce MD 05/29/23 Final result Normal [facility] CBC WITH DIFFon 02-24-2023 ABS BASOPHIL 0.04 x10^3ul Normal (0.00 - 0.16) [facility] Comment on above: Order Comment: FACIL ITY: [facility] [id number] Performed By: #### C BC/D, CHEM-C, TSHT34, B12+, MG #### [facility] [address] [facility], [address] ABS EOSINOPHIL 0.08 x10^3ul Normal (0.00 - 0.40) [facility] Comment on above: Order Comment: FACIL ITY: [facility] [id number] Performed By: #### C BC/D, CHEM-C, TSHT34, B12+, MG #### [facility] [address] [facility], [address] ABS IMMATURE GRANS 0.01 x10^3ul Normal (0.00 - 0.11) [facility] Comment on above: Order Comment: FACIL ITY: [facility] [id number] Performed By: #### C BC/D, CHEM-C, TSHT34, B12+, MG #### [facility] [address] [facility], [address] ABS LYMPHOCYTE 2.28 x10^3ul Normal (0.96 - 5.40) [facility] Comment on above: Order Comment: FACIL ITY: [facility] [id number] Performed By: #### C BC/D, CHEM-C, TSHT34, B12+, MG #### [facility] [address] [facility], [address] ABS MONOCYTE 0.70 x10^3ul Normal (0.10 - 1.00) [facility] Comment on above: Order Comment: FACIL ITY: [facility] [id number] Performed By: #### C BC/D, CHEM-C, TSHT34, B12+, MG #### [facility] [address] [place], [address] ABS NEUTROPHIL 3.91 x10^3ul Normal (1.50 - 7.00) [facility] Comment on above: Order Comment: FACIL ITY: [facility] [id number] Performed By: #### C BC/D, CHEM-C, TSHT34, B12+, MG #### [facility] [address] [place], [address] Basophils/100 WBC (Bld) 0.6 % Normal () [facility] Comment on above: Order Comment: FACIL ITY: [facility] [id number] Performed By: #### C BC/D, CHEM-C, TSHT34, B12+, MG #### [facility] [address] [place], [address] Eosinophils/100 WBC (Bld) 1.1 % Normal () [facility] Comment on above: Order Comment: [facility]IL ITY[facility] [id number] Performed By: #### C BC/D, CHEM-C, TSHT34, B12+, MG #### [facility] [address] [place], [address] Hematocrit (Bld) [Volume fraction] 46.1 % Normal (37.0 - 47.0) [facility] Comment on above: Order Comment: [facility]IL ITY[facility] [id number] Performed By: #### C BC/D, CHEM-C, TSHT34, B12+, MG #### [facility] [address] [place], [address] Hemoglobin (Bld) [Mass/Vol] 15.3 g/dL Normal (12.0 - 16.0) [facility] Comment on above: Order Comment: FACIL ITY: [facility] [id number] Performed By: #### C BC/D, CHEM-C, TSHT34, B12+, MG #### [facility] [address] [place], [address] IMMATURE GRANS (IG) 0.1 % Normal () [facility] Comment on above: Order Comment: FACIL ITY: [facility] [id number] Performed By: #### C BC/D, CHEM-C, TSHT34, B12+, MG #### [facility] [address] [place], [address] LYMPS 32.5 % Normal () [facility] Comment on above: Order Comment: FACIL ITY: [facility] [id number] Performed By: #### C BC/D, CHEM-C, TSHT34, B12+, MG #### [facility] [address] [place], [address] MCH (RBC) [Entitic mass] 30.5 pg Normal (27 .0 - 33.0) [facility] Comment on above: Order Comment: FACIL ITY: [facility] [id number] Performed By: #### C BC/D, CHEM-C, TSHT34, B12+, MG #### [facility] [address] [place], [address] MCHC (RBC) [Mass/Vol] 33.2 g/dL Normal (30.0 - 37.0) [facility] Comment on above: Order Comment: FACIL ITY: [facility] [id number] Performed By: #### C BC/D, CHEM-C, TSHT34, B12+, MG #### [facility] [address] [place], [address] MCV (RBC) [Entitic vol] 92.0 fL Normal (81. 0 - 99.0) [facility] Comment on above: Order Comment: FACIL ITY: [facility] [id number] Performed By: #### C BC/D, CHEM-C, TSHT34, B12+, MG #### [facility] [address] [place], [address] MONOS 10.0 % Normal () [facility] Comment on above: Order Comment: FACIL ITY: [facility] [id number] Performed By: #### C BC/D, CHEM-C, TSHT34, B12+, MG #### [facility] [address] [place], [address] PLT 201 x10^3ul Normal (130 - 400) [facility] Comment on above: Order Comment: FACIL ITY: [facility] [id number] Performed By: #### C BC/D, CHEM-C, TSHT34, B12+, MG #### [facility] [address] [place], [address] RBC 5.01 x10^6ul Normal (4.20 - 5.40) [facility] Comment on above: Order Comment: FACIL ITY: [facility] [id number] Performed By: #### C BC/D, CHEM-C, TSHT34, B12+, MG #### [facility] [address] [place], [address] RDW-SD 46.7 fl Normal (37.0 - 49.0) [facility] Comment on above: Order Comment: FACIL ITY: [facility] [id number] Performed By: #### C BC/D, CHEM-C, TSHT34, B12+, MG #### [facility] [address] [place], [address] SEGS 55.7 % Normal () [facility] Comment on above: Order Comment: FACIL ITY: [facility] [id number] Performed By: #### C BC/D, CHEM-C, TSHT34, B12+, MG #### [facility] [address] [place], [address] WBC 7.02 x10^3ul Normal (3.80 - 10.60) [facility] Comment on above: Order Comment: FACIL ITY: [facility] [id number] Performed By: #### C BC/D, CHEM-C, TSHT34, B12+, MG #### [facility] [address] [place], [address] COMP METABOLIC PANEL W/GFRon 02-24-2023 Albumin [Mass/Vol] 4.8 g/dL Normal (3.5 - 5.0) [facility] Comment on above: Performed By: #### C BC/D, CHEM-C, TSHT34, B12+, MG #### [facility] [address] [place], [address] ALK PHOS 63 U/L Normal (38 - 126) [facility] Comment on above: Performed By: #### C BC/D, CHEM-C, TSHT34, B12+, MG #### [facility] [address] [place], [address] ALT [Catalytic activity/Vol] 18 U/L Normal (1 - 35) [facility] Comment on above: Performed By: #### C BC/D, CHEM-C, TSHT34, B12+, MG #### [facility] [address] [place], [address] AST [Catalytic activity/Vol] 22 U/L Normal (15 - 46) [facility] Comment on above: Performed By: #### C BC/D, CHEM-C, TSHT34, B12+, MG #### [facility] [address] [place], [address] Bilirubin [Mass/Vol] 1.0 mg/dL Normal (0.2 - 1.3) [facility] Comment on above: Performed By: #### C BC/D, CHEM-C, TSHT34, B12+, MG #### [facility] [address] [place], [address] Calcium [Mass/Vol] 9.6 mg/dL Normal (8.6 - 10.6) [facility] Comment on above: Performed By: #### C BC/D, CHEM-C, TSHT34, B12+, MG #### [facility] [address] [place], [address] Chloride [Moles/Vol] 105 mmol/L Normal (98 - 107) [facility] Comment on above: Performed By: #### C BC/D, CHEM-C, TSHT34, B12+, MG #### [place] [facility] [address] [place], [address] CO2 [Moles/Vol] 24 mmol/L Normal (22 - 30) [facility] Comment on above: Performed By: #### C BC/D, CHEM-C, TSHT34, B12+, MG #### [facility] [address] [place], [address] Creatinine [Mass/Vol] 0.67 mg/dL Normal (0.52 - 1.04) [facility] Comment on above: Performed By: #### C BC/D, CHEM-C, TSHT34, B12+, MG #### [facility] [address] [place], [address] GFR- AMER 132.0 ML/M1.7 Normal (60.0 - 140.1) [facility] Comment on above: Performed By: #### C BC/D, CHEM-C, TSHT34, B12+, MG #### [facility] [address] [place], [address] GFR-NON AFRIC-AMER 109.1 ML/M1.7 Normal (60.0 - 115.8) [facility] Comment on above: Performed By: #### C BC/D, CHEM-C, TSHT34, B12+, MG #### [facility] [address] [place], [address] Glucose [Mass/Vol] 76 mg/dL Normal (74 - 106) [facility] Comment on above: Performed By: #### C BC/D, CHEM-C, TSHT34, B12+, MG #### [facility] [address] [place], [address] Potassium [Moles/Vol] 4.0 mmol/L Normal (3.5 - 5.1) [facility] Comment on above: Performed By: #### C BC/D, CHEM-C, TSHT34, B12+, MG #### [facility] [address] [place], [address] Protein [Mass/Vol] 7.5 g/dL Normal (6.3 - 8.2) [facility] Comment on above: Performed By: #### C BC/D, CHEM-C, TSHT34, B12+, MG #### [facility] [address] [place], [address] Sodium [Moles/Vol] 143 mmol/L Normal (137 - 145) [facility] Comment on above: Performed By: #### C BC/D, CHEM-C, TSHT34, B12+, MG #### [facility] [address] [place], [address] Urea nitrogen [Mass/Vol] 12 mg/dL Normal (7 - 17) [facility] Comment on above: Performed By: #### C BC/D, CHEM-C, TSHT34, B12+, MG #### [facility] [address] [place], [address] MAGNESIUMon 02-24-2023 Magnesium [Mass/Vol] 1.8 mg/dL Normal (1.6 - 2.3) [facility] Comment on above: Performed By: #### C BC/D, CHEM-C, TSHT34, B12+, MG #### [place] [facility] [address] [place], [address] T3 FREE, T4 FREE AND TSHon 1 Free T3 [Mass/Vol] 5.32 pg/mL Normal (2.32 - 6.09) [facility] Comment on above: Performed By: #### C BC/D, CHEM-C, TSHT34, B12+, MG #### [facility] [address] [place], [address] Free T4 [Mass/Vol] 1.45 ng/dL Normal (0.78 - 2.35) [facility] Comment on above: Performed By: #### C BC/D, CHEM-C, TSHT34, B12+, MG #### [facility] [address] [place], [address] TSH Qn 1.43 m[IU]/L Normal (0.470 - 4.680) [facility] Comment on above: Performed By: #### C BC/D, CHEM-C, TSHT34, B12+, MG #### [facility] [address] [place], [address] VIT B12 AND FOLATEon 023 Cobalamin (Vitamin B12) [Mass/Vol] 653 pg/mL Normal (239 - 931) [facility] Comment on above: Performed By: #### C BC/D, CHEM-C, TSHT34, B12+, MG #### [facility] [address] [place], [address] FOLIC ACID >20.0 High (2.8 - 20.0) [facility] Comment on above: Performed By: #### C BC/D, CHEM-C, TSHT34, B12+, MG #### [facility] [address] [facility] [address] HCG, ,Urineon 11-14 Beta HCG ( test) Ql (U) Negative Normal NEG [facility] Comment on above: Performed By: #### U HCG #### [facility] [address] [place] [address] Hydroelectric Production Technician: Natasha Bragg MD Surgical Pathologyon 023 Surgical Pathology (NOTE) Path Number: [id number] -- Diagnosis -- TERMINAL ILEUM, BIOPSY: -UNREMARKABLE [...] Microscopic Description Microscopic examination performed. Processing Lab: [address] [address] Interpretation Performed at [address] [address] SURGICAL PATHOLOGY CONSULTATION Patient Name: MEGAN COLLADO [facility] Rec: [id number] [facility] [employer] [facility] ANATOMIC PATHOLOG[facility] [address] [place] [address]. [place], [place] [address] Normal [facility] Comment on above: Performed By: #### P PPVS #### [address] [place] [address] Hydroelectric Production Technician: Alex Deleon MD Calprotectin, Fecalon 2022 Calprotectin, Fecal 7 ug/g Normal <=49 [facility] Comment on above: Result Comment: (NOT E) REFERENCE INTERVAL: Calprotectin, Fecal by Immunoassay Less than 50 ug/g.........Normal 50-120 ug/g...............Borderline elevated, test should be re-evaluated in 4-6 weeks. 121 ug/g or greater.......Elevated Performed By: [facility] [address] [place] [address] [employer]: Louie Kidd MD, PhD Performed By: #### A CALPF #### [facility] [address] [place], [place] [id number] Hydroelectric Production Technician: Jesu Farley MD Celiac Disease Panelon 10-24 Gliadin Deam Pep IgA 0.5 U/mL Normal <7.0 [facility] Comment on above: Result Comment: CELIAC INTERPRETATION <7.0 Negative 7.0-10.0 Equivocal >10.0 Positive units: U/mL Performed By: #### C ELP #### [place] [id number] Hydroelectric Production Technician: Alex Deleon MD Gliadin Deam Pep IgG <0.4 Normal <7.0 [facility] Comment on above: Result Comment: CELIAC INTERPRETATION <7.0 Negative 7.0-10.0 Equivocal >10.0 Positive units: U/mL Performed By: #### C ELP #### [address] [id number] Hydroelectric Production Technician: Alex Deleon MD Tiss Transglutam IgA <0.1 Normal <7.0 [facility] Comment on above: Result Comment: CELIAC INTERPRETATION <7.0 Negative 7.0-10.0 Equivocal >10.0 Positive units: U/mL Performed By: #### C ELP #### [address] [id number] Hydroelectric Production Technician: Alex Deleon MD IgA [Mass/Vol] 132 mg/dL Normal 70-400 [facility] Comment on above: Performed By: #### C ELP #### [address] [id number] Hydroelectric Production Technician: Alex Deleon MD AEROBIC CULTURE AND SENSITIV ITYon 10-07-2022 AMPICILLIN N/A Normal () [facility] Comment on above: Order Comment: FACIL ITY: [facility] [id number] Performed By: #### C -M75 #### [facility] [address] [place], [address] CEFOXITIN SCREEN Negative Normal () [facility] Comment on above: Order Comment: FACIL ITY: [facility] [id number] Performed By: #### C -M75 #### [facility] [address] [place], [address] CIPROFLOXACIN S Normal () [facility] Comment on above: Order Comment: FACIL ITY: [facility] [id number] Performed By: #### C -M75 #### [facility] [address] [place], [address] CLINDAMYCIN S Normal () [facility] Comment on above: Order Comment: FACIL ITY: [facility] [id number] Performed By: #### C -M75 #### [facility] [address] [place], [address] CULTURE, AEROBIC SENS Normal (SEE - REPOR) [facility] Comment on above: Order Comment: FACIL ITY: [facility] [id number] Performed By: #### C -M75 #### [facility] [address] [place], [address] DAPTOMYCIN S Normal () [facility] Comment on above: Order Comment: FACIL ITY: [facility] [id number] Performed By: #### C -M75 #### [facility] [address] [place], [address] DOXYCYCLINE I Normal () [facility] Comment on above: Order Comment: FACIL ITY: [facility] [id number] Performed By: #### C -M75 #### [facility] [address] [place], [address] ERYTHROMYCIN R High () [facility] Comment on above: Order Comment: FACIL ITY: [facility] [id number] Performed By: #### C -M75 #### [facility] [address] [place], [address] GENTAMICIN S Normal () [facility] Comment on above: Order Comment: FACIL ITY: [facility] [id number] Performed By: #### C -M75 #### [facility] [address] [place], [address] GENTAMICIN HIGH LEVEL N/A Normal () [facility] Comment on above: Order Comment: FACIL ITY: [facility] [id number] Performed By: #### C -M75 #### [facility] [address] [place], [address] INDUCIBLE CLINDAMYCIN RESISTANCE Negative Normal () [facility] Comment on above: Order Comment: [facility]IL ITY[facility] [id number] Performed By: #### C -M75 #### [facility] [address] [place], [address] LEVOFLOXACIN S Normal () [facility] Comment on above: Order Comment: FACIL ITY: [facility] [id number] Performed By: #### C -M75 #### [facility] [address] [place], [address] LINEZOLID S Normal () [facility] Comment on above: Order Comment: FACIL ITY: [facility] [id number] Performed By: #### C -M75 #### [facility] [address] [place], [address] MOXIFLOXACIN S Normal () [facility] Comment on above: Order Comment: [facility]ACIL ITY[facility] [id number] Performed By: #### C -M75 #### [facility] [address] [place], [address] NITROFURANTOIN S Normal () [facility] Comment on above: Order Comment: FACIL ITY[facility] [id number] Performed By: #### C -M75 #### [facility] [address] [facility], [address] OXACILLIN S Normal () [facility] Comment on above: Order Comment: FACIL ITY: [facility] [id number] Performed By: #### C -M75 #### [facility] [address] [facility], [address] REPORT STATUS FINAL Normal () [facility] Comment on above: Order Comment: FACIL ITY: [facility] [id number] Result Comment: SOUR CE: NO SOURCE INDICATED GROWTH: FEW ISOLATE: STAPHYLOCOCCUS EPIDERMIDIS SENSITIVITY INTERPRETATION S = SUSCEPTIBLE R = RESISTANT I = INTERMEDIATE N/A = NOT APPLICABLE Performed By: #### C -M75 #### [facility] [address] [facility], [address] RIFAMPICIN S Normal () [facility] Comment on above: Order Comment: FACIL ITY: [facility] [id number] Performed By: #### C -M75 #### [facility] [address] [facility], [address] STREPTOMYCIN HIGH LEVEL N/A Normal () [facility] Comment on above: Order Comment: FACIL ITY: [facility] [id number] Performed By: #### C -M75 #### [facility] [address] [place], [address] TETRACYCLINE R High () [facility] Comment on above: Order Comment: FACIL ITY: [facility] [id number] Performed By: #### C -M75 #### [facility] [address] [place], [address] TIGECYCLINE S Normal () [facility] Comment on above: Order Comment: FACIL ITY: [facility] [id number] Performed By: #### C -M75 #### [facility] [address] [place], [address] TRIMETH/SULFA S Normal () [facility] Comment on above: Order Comment: FACIL ITY: [facility] [id number] Performed By: #### C -M75 #### [facility] [address] [place], [address] VANCOMYCIN S Normal () [facility] Comment on above: Order Comment: FACIL ITY: [facility] [id number] Performed By: #### C -M75 #### [facility] [address] [facility], [address] BNPon 08-07-2022 Natriuretic peptide B (Bld) [Mass/Vol] 23.0 pg/mL Normal <=450.0 [facility] Comment on above: Performed By: #### H STROPN, BNP, BMP #### [facility] [address] [place] [address] Dr. Anette Siddiqui CBC AUTO DIFFon 08-07-2022 BASO # 0.0 103/ul Normal 0.0-0.1 [facility] Comment on above: Performed By: #### C BC #### [facility] [address] [place] [address] Dr. Anette Siddiqui Basophils/100 WBC (Bld) 0.4 % Normal 0.2-2.0 [facility] Comment on above: Performed By: #### C BC #### [facility] [address] [place] [address] Dr. Anette Siddiqui EO # 0.1 103/ul Normal 0.0-0.7 [facility] Comment on above: Performed By: #### C BC #### [facility] [address] [place] [address] Dr. Anette Siddiqui Eosinophils/100 WBC (Bld) 1.0 % Normal 0.9-7.0 [facility] Comment on above: Performed By: #### C BC #### [facility] [address] [place] [address] Dr. Anette Siddiqui Erythrocyte distribution width (RBC) [Ratio] 13.3 % Normal 11.0-15.0 [facility] Comment on above: Performed By: #### C BC #### [facility] [address] [place] [address] Dr. Anette Siddiqui Hematocrit (Bld) [Volume fraction] 42.2 % Normal 36.0-48.0 [facility] Comment on above: Performed By: #### C BC #### [facility] [address] [place] [address] Dr. Anette Siddiqui Hemoglobin (Bld) [Mass/Vol] 14.2 g/dL Normal 12.0-16.0 [facility] Comment on above: Performed By: #### C BC #### [facility] [address] [place] [address] Dr. Anette Siddiqui IG # 0.02 10e3/ul Normal 0.00-0.03 [facility] Comment on above: Performed By: #### C BC #### [facility] [address] [place] [address] Dr. Anette Siddiqui IG % 0.3 % Normal 0.0-0.5 [facility] Comment on above: Performed By: #### C BC #### [facility] [address] [place] [address] Dr. Anette Siddiqui LYMPH # 1.9 103/ul Normal 1.2-3.8 [facility] Comment on above: Performed By: #### C BC #### [facility] [address] [place] [address] Dr. Anette Siddiqui Lymphocytes/100 WBC (Bld) 24.8 % Normal 20.5-60.0 [facility] Comment on above: Performed By: #### C BC #### [facility] [address] [place] [address] Dr. Anette Siddiqui MANUAL DIFF REQ NO Normal [facility] Comment on above: Performed By: #### C BC #### [facility] [address] [place] [address] Dr. Anette Siddiqui MCH (RBC) [Entitic mass] 30.5 pg Normal 26.7-34.0 [facility] Comment on above: Performed By: #### C BC #### [facility] [address] [place] [address] Dr. Anette Siddiqui MCHC (RBC) [Mass/Vol] 33.6 g/dL Normal 29.9-35.2 [facility] Comment on above: Performed By: #### C BC #### [facility] [address] [place] [address] Dr. Anette Siddiqui MCV (RBC) [Entitic vol] 90.8 fL Normal 81.0-99.0 [facility] Comment on above: Performed By: #### C BC #### [facility] [address] [place] [address] Dr. Anette Siddiqui MONO # 0.6 103/ul Normal 0.3-0.8 [facility] Comment on above: Performed By: #### C BC #### [facility] [address] [place] [address] Dr. Anette Siddiqui Monocytes/100 WBC (Bld) 7.7 % Normal 1.7-12.0 [facility] Comment on above: Performed By: #### C BC #### [facility] [address] [place] [address] Dr. Anette Siddiqui NEUT # 5.0 103/ul Normal 1.4-6.5 [facility] Comment on above: Performed By: #### C BC #### [facility] [address] [place] [address] Dr. Anette Siddiqui Neutrophils/100 WBC (Bld) 65.8 % Normal 43.0-75.0 [facility] Comment on above: Performed By: #### C BC #### [facility] [address] [address] [address] Anette Siddiqui Platelet mean volume (Bld) [Entitic vol] 10.3 fL Normal 9.5-13.5 [facility] Comment on above: Performed By: #### C BC #### [facility] [address] [address] [address] Anette Siddiqui PLT 186 103/ul Normal 150-450 [facility] Comment on above: Performed By: #### C BC #### [facility] [address] [address] [address] Anette Siddiqui RBC 4.65 106/ul Normal 4.20-5.40 [facility] Comment on above: Performed By: #### C BC #### [facility] [address] [place] [address] Dr. Anette Siddiqui WBC 7.6 103/ul Normal 4.0-11.0 [facility] Comment on above: Performed By: #### C BC #### [facility] [address] [place] [address] Dr. Anette Siddiqui PREG HCG QUALon 08-07-2022 , QUAL Negative Normal NEGATIVE [facility] Comment on above: Performed By: #### P TT, PT #### [facility] [address] [place] [address] Dr. Anette Siddiqui PROF CHEM 8 (BAS METB)on Anion gap [Moles/Vol] 14.8 mmol/L Normal [facility] Comment on above: Performed By: #### H STROPN, BNP, BMP #### [facility] [address] [address] [address] Anette Siddiqui Calcium [Mass/Vol] 8.8 mg/dL Normal 8.5-10.1 [facility] Comment on above: Performed By: #### H STROPN, BNP, BMP #### [facility] [address] [place] [address] Dr. Anette Siddiqui Chloride [Moles/Vol] 105 mmol/L Normal 98-107 [facility] Comment on above: Performed By: #### H STROPN, BNP, BMP #### [facility] [address] [address] [address] Anette Siddiqui CO2 [Moles/Vol] 24.0 mmol/L Normal 21.0-32.0 [facility] Comment on above: Performed By: #### H STROPN, BNP, BMP #### [facility] [address] [address] [address] Anette Siddiqui Creatinine [Mass/Vol] 0.71 mg/dL Normal 0.55-1.02 [facility] Comment on above: Performed By: #### H STROPN, BNP, BMP #### [facility] [address] [address] [address] Anette Siddiqui EGFR-AF ARMENIAN >60 Normal >=60 [facility] Comment on above: Performed By: #### H STROPN, BNP, BMP #### [facility] [address] [place] [address] Dr. Anette Siddiqui EGFR-NON AF ARMENIAN >60 Normal >=60 [facility] Comment on above: Performed By: #### H STROPN, BNP, BMP #### [facility] [address] [place] [address] Dr. Anette Siddiqui Glucose [Mass/Vol] 99 mg/dL Normal 74-106 [facility] Comment on above: Performed By: #### H STROPN, BNP, BMP #### [facility] [address] [address] [address] Anette Siddiqui Potassium [Moles/Vol] 3.8 mmol/L Normal 3.5-5.1 [facility] Comment on above: Performed By: #### H STROPN, BNP, BMP #### [facility] [address] [place] [address] Dr. Anette Siddiqui Sodium [Moles/Vol] 140 mmol/L Normal 136-[address] [facility] Comment on above: Performed By: #### H STROPN, BNP, BMP #### [facility] [address] [address] [address] Anette Siddiqui Urea nitrogen [Mass/Vol] 15.0 mg/dL Normal 7.0-18.0 [facility] Comment on above: Performed By: #### H ALEXA, BNP, BMP #### [facility] [address] [place] [address] Dr. Anette Siddiqui Urea nitrogen/Creatinine [Mass ratio] 21.1 mg/mg Normal [facility] Comment on above: Performed By: #### H ALEXA, BNP, BMP #### [facility] [address] [place] [address] Dr. Anette Siddiqui TROPONIN, HIGH SENSITIVITYon 08-07-2022 HSTROP <4.0 Normal 4.0-51.3 [facility] Comment on above: Result Comment: CUT- OFF POINTS HAVE BEEN ESTABLISHED BASED ON THE FOURTH UNIVERSAL DEFINITIONS OF MYOCARDIAL INFARCTION. THE UPPER REFERENCE LIMIT (URL) OF TROPONIN, DEFINED THE 99TH PERCENTILE OF cTnI DISTRIBUTION IN A REFERENCE POPULATION, HAS BEEN CONFIRMED THE DECISION THRESHOLD FOR AR DIAGNOSIS. Performed By: #### H ALEXA, BNP, BMP #### [facility] [address] [place] [address] Dr. Anette Siddiqui XR CHEST 1 Von [...] by: HUGO OWENS Date: 2022-08-07 15:54 Normal [facility] CBC AUTO DIFFon 02-14-2022 BASO # 0.0 103/ul Normal 0.0-0.1 [facility] Comment on above: Performed By: #### C BC #### [facility] [address] [place] [address] Dr. Anette Siddiqui Basophils/100 WBC (Bld) 0.5 % Normal 0.2-2.0 T [facility] Comment on above: Performed By: #### C BC #### [facility] [address] [place] [address] Dr. Anette Siddiqui EO # 0.1 103/ul Normal 0.0-0.7 [facility] Comment on above: Performed By: #### C BC #### [facility] [address] [place] [address] Dr. Anette Siddiqui Eosinophils/100 WBC (Bld) 1.0 % Normal 0.9-7.0 [facility] Comment on above: Performed By: #### C BC #### [facility] [address] [place] [address] Dr. Anette Siddiqui Erythrocyte distribution width (RBC) [Ratio] 12.9 % Normal 11.0-15.0 [facility] Comment on above: Performed By: #### C BC #### [facility] [address] [place] [address] Dr. Anette Siddiqui Hematocrit (Bld) [Volume fraction] 43.2 % Normal 36.0-48.0 [facility] Comment on above: Performed By: #### C BC #### [facility] [address] [place] [address] Dr. Anette Siddiqui Hemoglobin (Bld) [Mass/Vol] 14.4 g/dL Normal 12.0-16.0 [facility] Comment on above: Performed By: #### C BC #### [facility] [address] [place] [address] Dr. Anette Siddiqui IG # 0.01 10e3/ul Normal 0.00-0.03 [facility] Comment on above: Performed By: #### C BC #### [facility] [address] [place] [address] Dr. Anette Siddiqui IG % 0.2 % Normal 0.0-0.5 [facility] Comment on above: Performed By: #### C BC #### [facility] [address] [place] [address] Dr. Anette Siddiqui LYMPH # 1.7 103/ul Normal 1.2-3.8 [facility] Comment on above: Performed By: #### C BC #### [facility] [address] [place] [address] Dr. Anette Siddiqui Lymphocytes/100 WBC (Bld) 29.8 % Normal 20.5-60.0 [facility] Comment on above: Performed By: #### C BC #### [facility] [address] [place] [address] Dr. Anette Siddiqui MANUAL DIFF REQ NO Normal [facility] Comment on above: Performed By: #### C BC #### [facility] [address] [place] [address] Dr. Anette Siddiqui MCH (RBC) [Entitic mass] 30.4 pg Normal 26.7-34.0 [facility] Comment on above: Performed By: #### C BC #### [facility] [address] [place] [address] Dr. Anette Siddiqui MCHC (RBC) [Mass/Vol] 33.3 g/dL Normal 29.9-35.2 [facility] Comment on above: Performed By: #### C BC #### [facility] [address] [place] [address] Dr. Anette Siddiqui MCV (RBC) [Entitic vol] 91.1 fL Normal 81.0-99.0 [facility] Comment on above: Performed By: #### C BC #### [facility] [address] [place] [address] Dr. Anette Siddiqui MONO # 0.5 103/ul Normal 0.3-0.8 [facility] Comment on above: Performed By: #### C BC #### [facility] [address] [place] [address] Dr. Anette Siddiqui Monocytes/100 WBC (Bld) 9.1 % Normal 1.7-12.0 [facility] Comment on above: Performed By: #### C BC #### [facility] [address] [place] [address] Dr. Anette Siddiqui NEUT # 3.5 103/ul Normal 1.4-6.5 [facility] Comment on above: Performed By: #### C BC #### [facility] [address] [place] [address] Dr. Anette Siddiqui Neutrophils/100 WBC (Bld) 59.4 % Normal 43.0-75.0 [facility] Comment on above: Performed By: #### C BC #### [facility] [address] [address] [address] Anette Siddiqui Platelet mean volume (Bld) [Entitic vol] 10.1 fL Normal 9.5-13.5 [facility] Comment on above: Performed By: #### C BC #### [facility] [address] [address] [address] Anette Siddiqui PLT 198 103/ul Normal 150-450 [facility] Comment on above: Performed By: #### C BC #### [facility] [address] [address] [address] Anette Siddiqui RBC 4.74 106/ul Normal 4.20-5.40 [facility] Comment on above: Performed By: #### C BC #### [facility] [address] [place] [address] Dr. Anette Siddiqui WBC 5.8 103/ul Normal 4.0-11.0 [facility] Comment on above: Performed By: #### C BC #### [facility] [address] [place] [address] ABD/PELVIS WO CONon [...] AGUSTIN SWANN Date: 2022-02-14 13:11 Normal [facility] ER URINE PROFILEon 2 Bilirubin Ql (U) Negative Normal NEGATIVE [facility] Comment on above: Performed By: #### P TT, PT #### [facility] [address] [place] [address] Dr. Anette Siddiqui Clarity (U) CLEAR Normal CLEAR [facility] Comment on above: Performed By: #### P TT, PT #### [facility] [address] [place] [address] Dr. Anette Siddiqui Color (U) LT. YELLOW Normal YELLOW [facility] Comment on above: Performed By: #### P TT, PT #### [facility] [address] [place] [address] Dr. Anette Siddiqui ERUAHD A micrscopic examination will be performed if indicated. Normal [facility] Comment on above: Performed By: #### P TT, PT #### [facility] [address] [place] [address] Dr. Anette Siddiqui Glucose Ql (U) Negative Normal NEGATIVE [facility] Comment on above: Performed By: #### P TT, PT #### [facility] [address] [address] [address] Anette Siddiqui Hemoglobin Ql (U) Negative Normal NEGATIVE [facility] Comment on above: Performed By: #### P TT, PT #### [facility] [address] [place] [address] Dr. Anette Siddiqui Ketones Ql (U) Negative Normal NEGATIVE [facility] Comment on above: Performed By: #### P TT, PT #### [facility] [address] [place] [address] Dr. Anette Siddiqui LEUKOCYTES Negative Normal NEGATIVE [facility] Comment on above: Performed By: #### P TT, PT #### [facility] [address] [place] [address] Dr. Anette Siddiqui Nitrite Ql (U) Negative Normal NEGATIVE [facility] Comment on above: Performed By: #### P TT, PT #### [facility] [address] [place] [address] Dr. Anette Siddiqui pH (U) 6.0 [pH] Normal 5-9 [facility] Comment on above: Performed By: #### P TT, PT #### [facility] [address] [place] [address] Dr. Anette Siddiqui SPEC GRAVITY 1.015 Normal 1.005-<=1.02 5 [facility] Comment on above: Performed By: #### P TT, PT #### [facility] [address] [place] [address] Dr. Anette Siddiqui UA PROTEIN Negative Normal NEGATIVE/ TRACE [facility] Comment on above: Performed By: #### P TT, PT #### [facility] [address] [place] [address] Dr. Anette Siddiqui UR MICRO IND NOT INDICATED Normal [facility] Comment on above: Performed By: #### P TT, PT #### [facility] [address] [place] [address] Dr. Anette Siddiqui Urobilinogen Qn (U) 0.2 {Shaniqua'U}/dL Normal 0.2 - 1. 0 [facility] Comment on above: Performed By: #### P TT, PT #### [facility] [address] [place] [address] Dr. Anette Siddiqui URon 02-14-2022 , QUAL Negative Normal NEGATIVE [facility] Comment on above: Performed By: #### P TT, PT #### [facility] [address] [place] [address] Dr. Anette Siddiqui PROF 14(COMP METB)on 022 Albumin [Mass/Vol] 4.2 g/dL Normal 3.4-5.0 [facility] Comment on above: Performed By: #### C MP #### [facility] [address] [address] [address] Anette Siddiqui Albumin/Globulin [Mass ratio] 1.4 {ratio} Normal [facility] Comment on above: Performed By: #### C MP #### [facility] [address] [address] [address] Anette Siddiqui ALP [Catalytic activity/Vol] 105 U/L Normal 46-116 [facility] Comment on above: Performed By: #### C MP #### [facility] [address] [address] [address] Anette Siddiqui ALT [Catalytic activity/Vol] 31 U/L Normal 14-59 [facility] Comment on above: Performed By: #### C MP #### [facility] [address] [place] [address] Dr. Anette Siddiqui Anion gap [Moles/Vol] 11.9 mmol/L Normal [facility] Comment on above: Performed By: #### C MP #### [facility] [address] [place] [address] Dr. Anette Siddiqui AST [Catalytic activity/Vol] 17 U/L Normal 15-37 [facility] Comment on above: Performed By: #### C MP #### [facility] [address] [place] [address] Dr. Anette Siddiqui Bilirubin [Mass/Vol] 0.6 mg/dL Normal 0.2-1.0 [facility] Comment on above: Performed By: #### C MP #### [facility] [address] [place] [address] Dr. Anette Siddiqui Calcium [Mass/Vol] 9.2 mg/dL Normal 8.5-10.1 [facility] Comment on above: Performed By: #### C MP #### [facility] [address] [place] [address] Dr. Anette Siddiqui Chloride [Moles/Vol] 105 mmol/L Normal 98-107 [facility] Comment on above: Performed By: #### C MP #### [facility] [address] [place] [address] Dr. Anette Siddiqui CO2 [Moles/Vol] 27.8 mmol/L Normal 21.0-32.0 [facility] Comment on above: Performed By: #### C MP #### [facility] [address] [address] [address] Anette Siddiqui Creatinine [Mass/Vol] 0.74 mg/dL Normal 0.55-1.02 [facility] Comment on above: Performed By: #### C MP #### [facility] [address] [address] [address] Anette Siddiqui EGFR-AF ARMENIAN >60 Normal >=60 [facility] Comment on above: Performed By: #### C MP #### [facility] [address] [address] [address] Anette Siddiqui EGFR-NON AF ARMENIAN >60 Normal >=60 [facility] Comment on above: Performed By: #### C MP #### [facility] [address] [address] [address] Anette Siddiqui Globulin (S) [Mass/Vol] 3.0 g/dL Normal [facility] Comment on above: Performed By: #### C MP #### [facility] [address] [place] [address] Dr. Anette Siddiqui Glucose [Mass/Vol] 79 mg/dL Normal 74-[address] [facility] Comment on above: Performed By: #### C MP #### [facility] [address] [place] [address] Dr. Anette Siddiqui Potassium [Moles/Vol] 3.7 mmol/L Normal 3.5-5.1 [facility] Comment on above: Performed By: #### C MP #### [facility] [address] [address] [address] Anette Siddiqui Protein [Mass/Vol] 7.2 g/dL Normal 6.4-8.[address] [facility] Comment on above: Performed By: #### C MP #### [facility] [address] [address] [address] Anette Siddiqui Sodium [Moles/Vol] 141 mmol/L Normal 136-145 [facility] Comment on above: Performed By: #### C MP #### [facility] [address] [place] [address] Dr. Anette Siddiqui Urea nitrogen [Mass/Vol] 13.0 mg/dL Normal 7.0-18.0 [facility] Comment on above: Performed By: #### C MP #### [facility] [address] [place] [address] Dr. Anette Siddiqui Urea nitrogen/Creatinine [Mass ratio] 17.6 mg/mg Normal [facility] Comment on above: Performed By: #### C MP #### [facility] [address] [place] [address] Dr. Anette Siddiqui PROTIMEon 02-14-2022 INR Coag (PPP) [Relative time] 1.01 {INR} Normal [facility] Comment on above: Performed By: #### P TT, PT #### [facility] [address] [place] [address] Dr. Anette Siddiqui INR GUIDELINES SEE BELOW Normal [facility] Comment on above: Result Comment: HERB RED INR: 2.0 - 3.0 CONDITIONS NOT LISTED BELOW 2.5 - 3.5 FOR PROSTHETIC HEART VALVE REPLACEMENT 2.5 - 3.5 RECURRENT THROMBOSIS Performed By: #### P TT, PT #### [facility] [address] [place] [address] Dr. Anette Siddiqui PT Coag (PPP) [Time] 10.9 s Normal 9.0-11.6 [facility] Comment on above: Performed By: #### P TT, PT #### [facility] [address] [place] [address] Dr. Anette Siddiqui PTTon 02-14-2022 aPTT Coag (Bld) [Time] 26.9 s Normal 22.3-36.2 [facility] Comment on above: Performed By: #### P TT, PT #### [facility] [address] [place] [address] Dr. Anette Siddiqui Vital Signs Date Time Vital Sign Value Performing Clinician Facility 04-06-2024 14:14-0500 Body mass index (BMI) [Ratio] 21.95 kg/m2 Dasha Powers PA Work Phone: [facility] 04-06-2024 14:14-0500 Body weight 62.14 kg Dasha Powers PA Work Phone: [facility] 04-06-2024 14:14-0500 Diastolic blood pressure 62 mm[Hg] Dasha Powers PA Work Phone: [facility] 04-06-2024 14:14-0500 Systolic blood pressure 102 mm[Hg] Dasha Powers PA Work Phone: [facility] 03-09-2024 13:40-0400 Body mass index (BMI) [Ratio] 21.21 kg/m2 Pradip Lionel DO Work Phone: [facility] 03-09-2024 13:40-0400 Body weight 60.06 kg Pradip Lionel DO Work Phone: [facility] 03-09-2024 13:40-0400 Diastolic blood pressure 60 mm[Hg] Pradip Lionel DO Work Phone: [facility] 03-09-2024 13:40-0400 Systolic blood pressure 106 mm[Hg] Pradip Lionel DO Work Phone: [facility] 02-19-2024 14:28-0400 Body mass index (BMI) [Ratio] 21.21 kg/m2 [facility] 02-19-2024 14:28-0400 Body weight 60.[address] [facility] 11-25-2023 11:50-0400 Body temperature 98.5 [degF] MD Brian Elizabeth Work Phone: [facility] 11-25-2023 11:50-0400 Diastolic blood pressure 77 mm[Hg] MD Brian Elizabeth Work Phone: [facility] 11-25-2023 11:50-0400 Heart rate 104 /min MD Brian Elizabeth Work Phone: [facility] 11-25-2023 11:50-0400 SaO2% (BldA) [Mass fraction] 97 % MD Brian Elizabeth Work Phone: [facility] 11-25-2023 11:50-0400 Systolic blood pressure 108 mm[Hg] MD Brian Elizabeth Work Phone: [facility] 11-24-2023 20:13-0400 Respiratory rate 18 /min MD Brian Elizabeth Work Phone: [facility] 11-24-2023 14:55-0400 Body height 167.64 cm MD Brian Elizabeth Work Phone: [facility] 11-24-2023 09:00-0400 Body weight 60.32 kg MD Brian Elizabeth Work Phone: [facility] 07-23-2023 09:12-0500 Body height 167.6 cm Harris Montague MD Work Phone: [facility] 07-23-2023 09:12-0500 Body mass index (BMI) [Ratio] 23.25 kg/m2 Harris Montague MD Work Phone: [facility] 07-23-2023 09:12-0500 Body temperature 98.49 [degF] Harris Montague MD Work Phone: [facility] 07-23-2023 09:12-0500 Body weight 65.32 kg Harris Montague MD Work Phone: [facility] 07-23-2023 09:12-0500 Diastolic blood pressure 74 mm[Hg] Harris Montague MD Work Phone: [facility] 07-23-2023 09:12-0500 Heart rate 56 /min Harris Montague MD Work Phone: [facility] 07-23-2023 09:12-0500 SaO2% (BldA) [Mass fraction] 97 % Harris Montague MD Work Phone: [facility] 07-23-2023 09:12-0500 Systolic blood pressure 124 mm[Hg] Harris Montague MD Work Phone: [facility] Encounters Encounter Date Encounter Type Care Provider Facility Start: 04-06-2024 End: 04-06-2024 Bamboo flowsheet Dasha WANGER Work Phone: [facility] Start: 04-06-2024 End: 04-19-2024 Bamboo flowsheet Dasha WAGNER Work Phone: [facility] Start: 04-06-2024 End: 04-19-2024 Clinisync Result Encounter Dasha WAGNER Work Phone: [facility] External Department Unsolicited Start: 04-06-2024 End: 04-06-2024 Patient encounter procedure Dasha WAGNER Work Phone: [facility] Healthcare Start: 04-06-2024 End: 04-06-2024 Periodic preventive med est patient 18-39 yrs Dasha WAGNER Work Phone: [facility] Comment on above: Well woman exam with routine gynecological exam; Exposure to STD; Encounter for anatomic survey; Second trimester ; 15 weeks gestation of ; Need for maternal serum alpha-protein (MSAFP) screening; Screening, , for anatomic survey Start: 04-06-2024 End: 04-06-2024 ambulatory DASHA POWERS Not Available Start: 03-09-2024 End: 03-09-2024 Bamboo flowsheet Pradip Lionel DO Work Phone: [facility] Start: 03-09-2024 End: 03-09-2024 Bamboo flowsheet Pradip Lionel DO Work Phone: [facility] Start: 03-09-2024 End: 03-09-2024 Office outpatient visit 15 minutes Pradip Lionel DO Work Phone: [facility] Comment on above: 11 weeks gestation o f ; First trimester Start: 03-09-2024 End: 03-09-2024 ambulatory PRADIP LIONEL Not Available Start: 03-01-2024 End: 03-01-2024 Emergency department patient visit KASEY Crandall [facility] Start: 02-19-2024 End: 02-19-2024 ambulatory PRADIP R [facility] Start: 02-19-2024 End: 02-19-2024 Office outpatient visit 5 minutes [facility] Lionel Nurse [facility] Start: 02-19-2024 End: 02-19-2024 ambulatory PRADIP LIONEL Not Available Start: 02-05-2024 End: 02-05-2024 ambulatory [facility] Start: 02-05-2024 End: 02-05-2024 ambulatory [facility] Karley [facility] Start: 02-03-2024 ambulatory Krzysztof Finney acility:[facility] Start: 11-23-2023 Non-patient / Non-visit MD Treasure Elizabeth Work Phone: [facility] Work Phone: Start: 11-22-2023 End: 11-25-2023 Evaluation and management of inpatient MD Brian Elizabeth Work Phone: [address] Work Phone: Start: 11-22-2023 End: 11-22-2023 Emergency department patient visit GLORIAMN Karley [facility] Start: 08-29-2023 End: 08-29-2023 ambulatory PRADIP R [facility] Start: 08-22-2023 End: 08-22-2023 ambulatory PRADIP R [facility] Start: 08-14-2023 Telephone encounter Malia Hammond MA [facility] Start: 08-14-2023 End: 08-14-2023 ambulatory PRADIP LIONEL Not Available Start: 08-13-2023 End: 08-13-2023 ambulatory PRADIP R [facility] Start: 08-06-2023 End: 08-06-2023 ambulatory PRADIP R LIONEL [facility] Start: 07-30-2023 End: 07-31-2023 Emergency department patient visit HAROLDO SOTO [facility] Start: 07-23-2023 End: 07-23-2023 Office outpatient new 45 minutes Harris Montague MD Work Phone: [facility] Comment on above: Irritable bowel synd sarah with both constipation and diarrhea (Primary Dx); 9 weeks gestation of Start: 07-23-2023 End: 07-23-2023 ambulatory HARRIS MONTAGUE [facility] Start: 05-29-2023 End: 06-01-2023 ambulatory [facility] Start: 11-14-2022 End: 11-14-2022 ambulatory [facility] Start: 10-23-2022 End: 10-24-2022 ambulatory [facility] Start: 10-23-2022 End: 10-23-2022 Subsequent hospital visit by physician [facility] Laboratory Comment on above: Rectal bleeding; Abnormal CT of the abdomen Start: 08-07-2022 End: 08-07-[address] SHARMILA KING Facility:[facility] Start: 02-14-2022 End: 02-14-[address] SHARMILA KING Facility:[facility] Procedures Date Procedure Procedure Detail Performing Clinician Start: 04-06-2024 Urnls dip stick/tabl et rgnt non-auto w/o micrscp Dasha WAGNER Work Phone: Start: 04-06-2024 IGP,APTIMA HPV,AGE GDLN Dasha WAGNER Work Phone: Start: 03-09-2024 Urnls dip stick/tabl et rgnt non-auto w/o micrscp Pradip Lionel DO Work Phone: Start: 02-19-2024 Urnls dip stick/tabl et rgnt non-auto w/o micrscp Pradip Lionel DO Work Phone: Start: 07-23-2023 Adult depression scr eening assessment Harris Montague MD Work Phone: Start: 10-23-2022 Assay of gammaglobul in iga igd igg igm each 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: Plan of Treatment Date Care Activity Detail Author Start: 08-02-2031 DTaP,Tdap and Td Vaccines (7 - Td or Tdap) DTaP,Tdap and Td Vaccines (7 - Td or Tdap) [facility] Start: 08-02-2031 DTaP/Tdap/Td vaccine (7 - Td or Tdap) DTaP/Tdap/Td vaccine (7 - Td or Tdap) [facility] Start: 07-29-2024 Adult BMI Screening Adult BMI Screen ing [facility] Start: 07-29-2024 Tobacco Screening Tobacco Screening [facility] Start: 07-22-2024 Adult BMI Screening Adult BMI Screen ing [facility] Start: 07-22-2024 Depression Screening Depression Scre ening [facility] Start: 07-22-2024 Tobacco Screening Tobacco Screening [facility] Start: 05-06-2024 End: 05-06-2024 Alpha fetoprotein, maternal Alpha fetoprotein, maternal Lab Routine Need for maternal serum alpha-protein (MSAFP) screening Expected: 05/06/2024 (Approximate), Expires: 05/06/2024 [facility] Healthcare Comment on above: Expected: 05/06/2024 (Approximate), Expires: 05/06/2024 Start: 05-06-2024 End: 05-06-2024 Patient encounter procedure 05/06/2024 10:40 AM EST Routine [facility] [address] [place] [id number] Pradip Flowers, DO [address] [place] [address] [facility] Start: 04-06-2024 End: 04-06-2025 US for US OB ANATOMY SINGLE W US OB CERVICAL LENGTH Imaging Routine Screening, , for anatomic survey Expected: 04/06/2024 (Approximate), Expires: 04/06/2025 [facility] Comment on above: Expected: 04/06/2024 (Approximate), Expires: 04/06/2025 Start: 04-06-2024 End: 04-06-2024 Patient encounter procedure [facility] Comment on above: Arrived Start: 03-09-2024 End: 03-09-2024 Patient encounter procedure [facility] Comment on above: Arrived Start: 02-19-2024 End: 02-18-2025 ABO/Rh ABO/Rh Lab Routine Missed menses , unspecified gestational age Expected: 02/19/2024 (Approximate), Expires: 02/18/2025 [facility] Healthcare Comment on above: Expected: 02/19/2024 (Approximate), Expires: 02/18/2025 Start: 02-19-2024 End: 02-18-2025 Blood type and Indirect antibody screen panel - Blood Type and screen Lab Routine Missed menses , unspecified gestational age Expected: 02/19/2024 (Approximate), Expires: 02/18/2025 [facility] Work Phone: Comment on above: Expected: 02/19/2024 (Approximate), Expires: 02/18/2025 Start: 02-19-2024 End: 02-18-2025 Drugs of abuse panel - Urine by Screen method Rapid drug screen, urine Lab Routine , unspecified gestational age Encounter for supervision of normal first in first trimester Expected: 02/19/2024 (Approximate), Expires: 02/18/2025 [facility] Healthcare Comment on above: Expected: 02/19/2024 (Approximate), Expires: 02/18/2025 Start: 02-19-2024 End: 02-18-2025 US Pelvis transvaginal US OB transvaginal Imaging Routine Missed menses Expected: 02/19/2024 (Approximate), Expires: 02/18/2025 [facility] Healthcare Comment on above: Expected: 02/19/2024 (Approximate), Expires: 02/18/2025 Start: 11-25-2023 [facility] Start: 11-22-2023 Hospital admission [facility] Start: 11-22-2023 [facility] Start: 01-17-2023 Influenza vaccination Influenza Vacc ine [facility] Start: 12-17-2022 Influenza vaccination Flu vacc ine (Season Ended) [facility] Start: 04-03-2022 Screening for Chlamy altagracia trachomatis Chlamydia Screening [facility] Start: 09-23-2020 Screening for malign ant neoplasm of cervix Pap smear [facility] Start: 09-23-2017 Hepatitis C screening Hepatitis C sc reen [facility] Start: 2015 Screening for Chlamy altagracia trachomatis Chlamydia/GC screen [facility] Start: 09-23-2014 HIV screening HIV screen [facility] Start: 2011 Depression Screen Depression Screen [facility] Start: 03-26-2000 COVID-19 Vaccine (#1) COVID-19 Vacci ne (#1) [facility] Bacteria identified in Urine by Culture Urine culture Microbiology Routine Missed menses Ordered: 02/19/2024 [facility] Healthcare Comment on above: Ordered: 02/19/2024 End: 10-23-2022 Calprotectin Stool [facility] Work Phone: Comment on above: 1 Occurrences starti ng 10/23/2022 until 10/23/2022 CBC W Auto Different ial panel - Blood CBC and differential Lab Routine Missed menses , unspecified gestational age Ordered: 02/19/2024 [facility] Healthcare Comment on above: Ordered: 02/19/2024 Celiac Disease Panel Celiac Dise ase Panel Lab Routine Rectal bleeding Abnormal CT of the abdomen 10/23/2022 4:23 PM EDT [facility] [employer] Phone: CHLAMYDIA TRACHOMATI S (GENITO/STI) CHLAMYDIA TRACHOMATIS (GENITO/STI) Lab Routine Exposure to STD Ordered: 04/06/2024 [facility] Comment on above: Ordered: 04/06/2024 Cytology Cervical or vaginal smear or scraping study Pap Smear Pathology and Cytology Routine Well woman exam with routine gynecological exam Ordered: 04/06/2024 [facility] Healthcare Comment on above: Ordered: 04/06/2024 Hemoglobin A1c/Hemoglobin.total in Blood Hemoglobin A1c Lab Routine Missed menses , unspecified gestational age Ordered: 02/19/2024 [facility] Healthcare Comment on above: Ordered: 02/19/2024 Hepatitis B virus surface Ag [Presence] in Serum or Plasma by Immunoassay Hepatitis B surface antigen Lab Routine Missed menses , unspecified gestational age Ordered: 02/19/2024 [facility] Comment on above: Ordered: 02/19/2024 Hepatitis C virus Ab [Presence] in Serum or Plasma by Immunoassay Hepatitis C antibody Lab Routine Missed menses , unspecified gestational age Ordered: 02/19/2024 [facility] Comment on above: Ordered: 02/19/2024 HIV-1/HIV-2 antigen/antibody combination immunoassay HIV-1 and HIV-2 antibodies Lab Routine Missed menses , unspecified gestational age Ordered: 02/19/2024 [facility] Comment on above: Ordered: 02/19/2024 Neisseria gonorrhoea e DNA [Presence] in Unspecified specimen by TRACY with probe detection Neisseria gonorrhea DNA probe, direct Lab Routine Exposure to STD Ordered: 04/06/2024 [facility] Comment on above: Ordered: 04/06/2024 Patient Education Depression, Ad ult (DC) [facility] Behavioral Health [place] Instructions Know your Meds [facility] Work Phone: Patient referral [facility] Work Phone: Reagin Ab [Presence] in Serum by RPR RPR Lab Routine Missed menses , unspecified gestational age Ordered: 02/19/2024 [facility] Comment on above: Ordered: 02/19/2024 Rubella antibody, IgG Rubella an tibody, IgG Lab Routine Missed menses , unspecified gestational age Ordered: 02/19/2024 [facility] Comment on above: Ordered: 02/19/2024 SURESWAB(R) ADVANCED VAGINITIS PLUS, TMA SURESWAB(R) ADVANCED VAGINITIS PLUS, TMA Pathology and Cytology Routine Exposure to STD Ordered: 04/06/2024 [facility] Work Phone: Comment on above: Ordered: 04/06/2024 Payers Date Payer Category Payer Self-pay 2021 Medicaid (Managed Care) [employer] [id number] 2021 Medicaid [id number] 2019 Unknown VIRI ROSIE ACCE SS (PPO) [id number] 2019-Present [phone] [address] [place] [address] [id number]. [id number] 1999 Unknown [id number] 2.16840.1.567251.3.579.2. 593 1999 Unknown [id number] 2.16840.1.923510.3.579.2. 593 1999 Unknown [id number] 2.16840.1.633943.3.579.2. 174 1999 Unknown [id number] 2.16840.1.206779.3.579.2. 174 1999 Unknown [id number] 2.16840.1.987667.3.579.2. 173 1999 Unknown [id number] 2.16840.1.505188.3.579.2. 1286 1999 Unknown [id number] 2.16.840.1.706005.3.579.2. 1285 1999 Unknown [id number] 2.16840.1.350220.3.579.2. 128 1999 Unknown [id number] 2.16840.1.782114.3.579.2. 128 1999 Unknown [id number] 2.16.840.1.742472.3.579.2. 1285 1999 Unknown [id number] 2.16.840.1.983722.3.579.2. 1285 1999 Unknown [id number] 2.16.840.1.894592.3.579.2. 1285 1999 Unknown [id number] 2.16.840.1.080503.3.579.2. 1285 1999 Unknown [id number] 2.16.840.1.337757.3.579.2. 1285 1999 Unknown [id number] 2.16.840.1.794125.3.579.2. 1285 1999 Unknown [id number] 2.16.840.1.154195.3.579.2. 1285 1999 Unknown [id number] 2.16.840.1.311791.3.579.2. 1285 1999 Unknown [id number] 2.16.840.1.190507.3.579.2. 1258 1999 Unknown [id number] 2.16.840.1.188964.3.579.2. 1258 1999 Unknown [id number] 2.16.840.1.766247.3.579.2. 1258 1999 Unknown [id number] 2.16.840.1.524669.3.579.2. 9 1959 Unknown [id number] 1959 Unknown [id number] Unknown [id number] 2.16.840.1.965171.3.579.2. 531 Unknown [id number] 2.16.840.1.843272.3.579.2. 531 Social History Date Type Detail Facility Start: 10-23-2022 End: 08-13-2023 Tobacco smoking status [facility] Never smoked tobacco [facility] [employer] Phone: Start: 10-23-2022 End: 07-23-2023 Tobacco use and exposure Smokeless tobacco non-user [facility] Work Phone: Start: 2000 Sex Assigned At Not on file [employer] Phone: Start: 07-23-2023 End: 04-06-2024 Alcohol intake Lifetime non-drinker (finding) [facility] Start: 03-11-2020 End: 08-13-2023 History of Social function [facility] Start: 03-11-2020 End: 08-13-2023 Alcohol Use Disorder Identification Test - Consumption [AUDIT-C] [facility] How often to you hav e a drink containing alcohol? Never [facility] Average Number of Drinks Not on file [facility] How hard is it for y ou to pay for the very basics like food, housing, medical care, and heating Somewhat hard [facility] The thought of kelli flynn myself has occurred to me Hardly ever [facility] Start: 05-27-2023 [facility] Start: 2000 Sex Assigned At Female [facility] Start: 07-24-2023 Sexual orientation Heterosexual (finding) [facility] Goals Date Patient Goal Desired Activity /State Functional Status Date Assessment Result Facility 11-25-2023 Functional status Patient at Baseline [facility] Work Phone: Mental Status Date Assessment Result Facility 11-25-2023 Cognitive function Cognitive Sta tus Patient at Baseline [facility] Work Phone: Clinical Notes 07-23-2023 to 04-06-2024 KRISTY Alfaro - 04/06/2024 1:50 PM Uriah Gale LPN - 03/09/2024 1:30 PM Ximena Stone LPN - 02/19/2024 2:00 PM EDT Note Date & Type Note Facility 04-06-2024 History of Presen t illness Narrative Reason for Appointment: Patient ID: Megan Collado is a 23 y.o. female who presents for Routine Visit Patient presents today for Annual Exam., STD Check., and Return OB appointment. MEDICATIONS Current Outpatient Medications Medication Instructions ondansetron ODT (ZOFRAN-ODT) 4 mg, Oral, Every 6 hours PRN MV & Min w/FA-DHA ( Gummies) 0.18-25 MG chewable tablet 1 each, Oral, Daily Vit-Fe Fumarate-FA ( Vitamins) 28-0.8 MG tablet [...] Objective: Physical Exam Constitutional: Appearance: Normal appearance. Genitourinary: Right Adnexa: not tender and no mass present. Left Adnexa: not tender and no mass present. No cervical discharge. Breasts: Breasts are soft. Right: Normal. Left: Normal. HENT: Head: Normocephalic. Nose: Nose normal. Mouth/Throat: Mouth: Mucous membranes are moist. Cardiovascular: Rate and Rhythm: Normal rate. Pulmonary: Effort: Pulmonary effort is normal. Abdominal: General: Bowel sounds are normal. Palpations: Abdomen is soft. Musculoskeletal: General: Normal range of motion. Cervical back: Normal range of motion. Neurological: General: No focal deficit present. Mental Status: She is alert. Skin: General: Skin is warm and dry. Psychiatric: Mood and Affect: Mood normal. Vitals and nursing note reviewed. Exam conducted with a drawing kiln supervisor present. Vitals: Estimated body mass index is 21.95 kg/m as calculated from the following: Height as of 18: 5' 6.25 . Weight as of this encounter: 137 lb. BP: 102/62 Patient's last menstrual period was 12/19/2023. ASSESSMENT & PLAN ICD-10-CM 1. Well woman exam with routine gynecological exam Z01.419 Pap Smear 2. Exposure to STD Z20.2 SURESWAB(R) ADVANCED VAGINITIS PLUS, TMA CHLAMYDIA TRACHOMATIS (GENITO/STI) Neisseria gonorrhea DNA probe, direct 3. Encounter for anatomic survey Z36.89 4. Second trimester Z34.92 5. 15 weeks gestation of Z3A.15 POCT urinalysis dipstick manually resulted 6. Need for maternal serum alpha-protein (MSAFP) screening Z36.1 Alpha fetoprotein, maternal Alpha fetoprotein, maternal 7. Screening, , for anatomic survey Z36.89 US OB ANATOMY SINGLE W US OB CERVICAL LENGTH Return OB/Annual Exam: Patient presents today for an annual exam/routine obstetrics appointment. Patient is currently 15w4d . Patient is doing well and states she has been having a lot of pressure in the vagina any time she stands for any period of time. Pap/cultures was obtained without difficulty and patient was given msAFP/Anatomy US order to have obtained. Orders Placed This Encounter Procedures US OB ANATOMY SINGLE W US OB CERVICAL LENGTH CHLAMYDIA TRACHOMATIS (GENITO/STI) Neisseria gonorrhea DNA probe, direct Alpha fetoprotein, maternal POCT urinalysis dipstick manually resulted Follow Up: Patient is to return to our office in 4 weeks for routine OB appointment Documented by Jacklyn Gr MA on behalf of: KRISTY Alfaro documented in this encounter [facility] 03-09-2024 History of Presen t illness Narrative Reason for Appointment: Patient ID: Megan Collado is a 23 y.o. female who [...] nursing note reviewed. Exam conducted with a drawing kiln supervisor present. Vitals: Estimated body mass index is [...] or undercooked meat, and stay away from [facility]. Patient has been consulted regarding any further do's and don'ts of . Patient voiced understanding and all questions and concerns were answered. Orders Placed This Encounter Procedures POCT urinalysis dipstick manually resulted Follow Up: Patient is to return in 4 weeks for routine OB appointment. Documented by Iris Gale LPN on behalf of: Pradip Flowers DO documented in this encounter [facility] 02-19-2024 History of Presen t illness Narrative Reason for Appointment: Patient ID: Megan Collado is a 23 y.o. female who [...] or undercooked meat, and stay away from [facility]. Patient has also been advised to not [...] Sridevi Stone LPN documented in this encounter [facility] 11-24-2023 Progress note Note Date/Time November 24, 2023 1:21p [place] [address] Psychiatry Progress Note Signed Patient: Megan Collado MR#: [id number] : 2000 Acct:[id number] Age/Sex: 23 / F Adm Date: 4 Loc: 1S Room: [address] [place] [address] Type : ADM IN Attending Dr: Krzysztof [...] By: <Electronically signed by Demetrius Kelley MD> 11/24/231321 [facility] Work Phone: 1(991) 871-190107-07-2024 History and physical note Author Krzysztof vargas [facility] November 23, 2023 9:45am Note Date/Time November 23, 2023 7:42a m [facility] [address] [place] [address] Psychiatry H&P Signed Patient: Megan Collado MR#: [id number] : 2000 Acct:[id number] Age/Sex: 23 / F Adm Date: 4 Loc: 1S Room: 6Y8220-0 Type: ADM IN Attending Dr: Krzysztof Motnesinos MD Copies to: MD Brian Grant MD~ [...] them for any support. 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[employer], pt is worried about falling behind in [...] and positive suicidality Insight: Fair Judgment: [facility] Social History Smoking Status: Never smoker Substance [...] staff) Documented By: Krzysztof Montesinos MD [id number] Signed By: <Electronically signed by Krzysztof Montesinos MD> 11/23/23 0949 [facility] Work Phone: 1(828) 994-970403-28-2024 Miscellaneous Notes* Telephone Encounter - Malia Sanchez [...] set up an [facility] Note* Telephone Encounter - Malia Sanchez CMA - 08/14/2023 1:54 PM EDT ----- Message from Harris Montague MD sent at 08/14/2023 12:44 PM EDT ----- Abnormal result. Concerning for miscarriage/ termination Please call patient to see if she would like appointment with provider to discuss or if OB providerhas already reviewed? [facility]03-28-2024 Telephone encounter Note* Telephone Encounter - Malia Sanchez CMA - 08/14/2023 1:54 PM EDT Called patient she stated that she did not need to set up an appointment [facility]03-06-2024 History of Present illness Narrative* Harris Montague MD - 07/23/2023 9:00 AM EST Images from the original note were not included. [address] [place] [id number] Patient: Megan Collado Date of : 2000 Encounter Date: 07/23/2023 SUBJECTIVE: Chief Complaint: Chief Complaint Patient presents with [facility] Care Patient ID: Megan Collado is a [...] needed. HARRIS MONTAGUE MD Family Medicine Physician [facility] Family Medicine / [facility] 07/23/23 This note was completed with voice recognition software. The document was reviewed for errors however some may still be present. Please do not hesitate to contact/[facility] the author to verify any questions/concerns. documented in this encounterMcKitrick Hospital SystemDischarge summary Author Demetrius Kelley [facility] November 25, 2023 12:08pm Note Date/Time November 25, 2023 11:13 am [facility] [address] [place], [place] [id number] Discharge Summary Signed Patient: Megan Collado MR#: [id number] : 2000 Acct:[id number] Age/Sex: 23 / F Adm Date: 4 Loc: 1S Room: [address] [place] [address]: Krzysztof Montesinos MD Copies to: [...] them for any support. 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 If at any time you are feeling an increase inyour psychiatric symptoms, call your physician or behavioral healthcare provider. If any time you have thoughts of harming yourself or others contact one of the following: Call 8 (available 09/12) Crisis Text Line (available 09/12) text 4HOPE to [phone] [facility] Line (available 8 a.m. Midnight) call [phone] ([phone]) Instructions: Depression, Adult (DC), [facility] Behavioral Health DC Instructions, Know your Meds Stand Alone Forms: Work/School Release Form Prescriptions: New nicotine (polacrilex) 2 mg Gum 2 mg buccal Q2H PRN (Reason: Nicotine Cravings) Qty: 20 0RF sertraline 25 mg Tablet 25 mg PO QAM 30 Days Qty: 30 0RF Continued PNV b#95-ferrous fumarate-FA [] 28 mg iron- 800 mcg tablet 1 tab PO DAILY polyethylene glycol 3350 [Miralax] 17 gram/dose powder 17 g PO DAILY PRN (Reason: constipation) Follow Up: [facility] [Outside] - 11/26/23 (This will be [...] signed by Demetrius Kelley MD> 11/25/23 1208 [facility] Work Phone: Evaluation note* Diagnosis Rectal bleeding Hemorrhage of rectum and anus Abnormal CT of the abdomen Nonspecific (abnormal) findings on radiological and other examination of abdominal area, including retroperitoneum documented in this encounter [facility] Work Phone: evaluation note* Diagnosis Irritable bowel syndrome with both constipation and diarrhea- Primary 9 weeks gestation of documented [facility] this [facility]* Diagnosis Onset Date Resolution Status Major depressive disorder, recurrent, moderate acute [facility] Work Phone: Evaluation note* Diagnosis Missed menses , unspecified gestational age Encounter for supervision of normal first in first trimester documented in this encounter [facility]Evaluation [facility]* Diagnosis 11 weeks gestation of First trimester state, incidental documented in this encounter [facility]* Diagnosis Well woman exam with routine gynecological exam Routine gynecological examination Exposure to STD Encounter for anatomic survey Second trimester state, incidental 15 weeks gestation of Need for maternal serum alpha-protein (MSAFP) screening Screening, , for anatomic survey Encounter for anatomic survey documented in this encounter [facility] HealthcareInstructionsNot on filedocumented in this encounterProMediFair[facility] SystemInstructionsNot on filedocumented in this encounterProMar[facility] System Summary Purpose Family History No Family History Records FoundNo Family History Records FoundNo Family History Records FoundNo Family History Records FoundNo Family History Records FoundNo Family History Records FoundNo Family History Records FoundNo Family History Records FoundNo Family History Records Found Advance Directives Latest Code Status on File Code Status Date [...] and content) DATE CREATED AUTHOR 08/10/2022 [facility] DATE CREATED AUTHOR AUTHOR'S ORGANIZ ATION 11/18/2022 [facility] DATE CREATED AUTHOR AUTHOR'S ORGANIZ ATION 02/26/2023 [facility] DATE CREATED AUTHOR AUTHOR'S ORGANIZ ATION 06/01/2023 [facility] DATE CREATED AUTHOR AUTHOR'S ORGANIZ ATION 02/07/2024 [facility] DATE CREATED AUTHOR AUTHOR'S ORGANIZ ATION 02/08/2024 [facility] DATE CREATED AUTHOR AUTHOR'S ORGANIZ ATION 03/03/2024 [facility] DATE CREATED AUTHOR AUTHOR'S ORGANIZ ATION 03/14/2024 [facility] DATE CREATED AUTHOR AUTHOR'S ORGANIZ ATION 04/09/2024 [facility] d[facility] Specialists EPIC Reason for Visit (unrecogniz ed section and content) Reason Comments Establish Care Reason Comments Amenorrhea Reason Comments Routine Visit Care Teams (unrecognized sec tion and content) Production Operations Engineer Relationship Specialty Start Date End Date Harris Montague MD [address] [place] [address] PCP - General Internal Medicine 07/23/23 Production Operations Engineer Relationship Specialty Start Date End Date Harris Montague MD [address] [place] [address] PCP - General Internal Medicine 07/23/23 Team [...] Other Provider Active Start: November 23, 2023 Production Operations Engineer Relationship Specialty Start Date End Date Sharmila King MD [address] [place] [address] PCP - External PCP Family Medicine 10/26/22 Harris Montague MD [address] [place] [address] PCP - General Family Medicine 08/14/23 Production Operations Engineer Relationship Specialty Start Date End Date Sharmila King MD [address] [place] [address] PCP - External PCP Family Medicine 10/26/22 Harris Montague MD [address] [place] [address] PCP - General Family Medicine 08/14/23 Production Operations Engineer Relationship Specialty Start Date End Date Sharmila King MD [address] [place] [address] PCP - External PCP Family Medicine 10/26/22 Harris Montague MD [address] [place] [address] PCP - General Family Medicine 08/14/23 Production Operations Engineer Relationship Specialty Start Date End Date Sharmila King MD [address] [place] [address] PCP - External PCP Family Medicine 10/26/22 Harris Montague MD [address] [place] [address] PCP - General Family Medicine 08/14/23 Production Operations Engineer Relationship Specialty Start Date End Date Sharmila King MD [address] [place] [address] PCP - External PCP Family Medicine 10/26/22 Harris Montague MD [address] [place] [address] PCP - General Family Medicine 08/14/23 FOR [...] BE BASED ON THE PRIMARY CLINICAL RECORDS. [facility] [employer] [facility]. provides no warranty or guarantee of the accuracy or completeness of information in this document.
[2024-05-12 01:06] LABS: AFP Value 43.2 ng/mL (.); Gest. Age on Collection Date 15.6 weeks (.); Insulin Dep Diabetes No (.); OSBR Risk 1 IN 4803 (.); Results Report (.)
== END 2024-05-07 14:42 | disposition home or self-care (01) ==
LOC: US 14:42
PROVIDERS: PCP Family Medicine; Visit Provider Obstetrics & Gynecology
DX: Z34.92 Encounter for supervision of normal pregnancy, unspecified, second trimester (principal); Z36.89 Encounter for other specified antenatal screening; Z36.1 Encounter for antenatal screening for raised alphafetoprotein level; Z3A.20 20 weeks gestation of pregnancy
CPT/HCPCS: 36415; 76805; 76817; 82105

== ENCOUNTER 2024-05-23 18:49 | Emergency (ER) | payer OTHER, SELFPAY ==
[2024-05-23 18:55] VITALS: BP 108/86; PULSE 68; TEMP 36.9; O2SAT 98; BMI 25.0
--- NOTE | 2024-05-23 19:16 | ED.EXTPRO1 ---
HPI - Extremity Problem General Chief complaint: Extremity Problem, Nontraumatic Stated complaint: Lower Pain Time Seen by Provider: 05/23/24 18:54 Source: family Mode of arrival: walk-in Limitations: no limitations History of Present Illness HPI Narrative: 23-year-old female presents here with a chief complaint of lower extremity pain. She is currently 22 weeks and she states her veins in her legs have been popping. She is concerned of pain. Patient is alert and oriented no acute distress superficial varicosities are noted on exam. She has no calf pain or tenderness no shortness of breath. Related Data Home Medications ?Medication ?Instructions ?Recorded ?Confirmed vits no.130-ferrous fum tab 11/14/22 27 mg iron-folic acid 800 mcg tablet ( Vitamin) sertraline 25 mg tablet mg 05/23/24 sertraline 50 mg tablet mg 05/23/24 Allergies Allergy/AdvReac Type Severity Reaction Status Date / Time amoxicillin Allergy Unknown Verified 05/23/24 18:59 Review of Systems ROS Narrative All Systems are negative except as noted/marked.All systems reviewed and otherwise negative PFSH PFSH Social History Smoking status: Never smoker Little interest or pleasure in doing things: not at all Feeling down, depressed, or hopeless: not at all Exam Narrative Exam Narrative: Nurses note and vital signs reviewed and patient is not hypoxic. General: The patient appears well and in no apparent distress. Patient is resting comfortably on cart. Skin: Warm, dry, no pallor noted. There is no rash noted. Head: Normocephalic, atraumatic Eye: Normal conjunctiva, no drainage, EOMI. PERRL Respiratory: Patient is in no distress, no accessory muscle use, lungs are clear to auscultation, no wheezing, rales or rhonchi Back: non-tender, no CVA tenderness bilaterally to percussion. GI: Normal bowel sounds, no tenderness to palpation, no masses appreciated. No rebound, guarding, or rigidity noted. Musculoskeletal: Varicosities noted bilateral lower extremities, no deep vein pain negative Homans' sign, pulses intact bilaterally , the patient has no evidence of calf tenderness, no pitting edema, symmetrical pulses noted bilaterally Neurological: A&O x4, normal speech Psychiatric: Cooperative Constitutional Vital Signs, click to edit/add: Last Vital Signs Temp 98.4 F 05/23/24 18:55 Pulse 68 05/23/24 18:55 Resp 16 05/23/24 18:55 BP 108/86 05/23/24 18:55 Pulse Ox 98 05/23/24 18:55 O2 Del Method Room Air 05/23/24 18:55 Course Vital Signs Vital signs: Vital Signs Temperature 98.4 F 05/23/24 18:55 Pulse Rate 68 05/23/24 18:55 Respiratory Rate 16 05/23/24 18:55 Blood Pressure 108/86 05/23/24 18:55 Pulse Oximetry 98 05/23/24 18:55 Oxygen Delivery Method Room Air 05/23/24 18:55 Temperature 98.4 F 05/23/24 18:55 Pulse Rate 68 05/23/24 18:55 Respiratory Rate 16 05/23/24 18:55 Blood Pressure 108/86 05/23/24 18:55 Pulse Oximetry 98 05/23/24 18:55 Oxygen Delivery Method Room Air 05/23/24 18:55 MDM - Extremity (Nontraumatic) MDM Narrative Medical decision making narrative: 23-year-old female presents here with a chief complaint of lower extremity pain. She is currently 22 weeks and she states her veins in her legs have been popping. She is concerned of pain. Patient is alert and oriented no acute distress superficial varicosities are noted on exam. She has no calf pain or tenderness no shortness of breath. Patient has superficial varicosities are noted. She does show me a picture where the varicosities are increased. There is no deep vein thrombosis expected at this time she has no calf pain or tenderness calfs are both within normal limits of each other. Patient is currently . She is going to follow-up with her VAN DRIVER HELPER on Friday. Patient was told to use compression stockings to help her symptoms. Medical Records Attestation: I reviewed the patient's medical records. Discharge Plan Discharge Chief Complaint: Extremity Problem, Nontraumatic Clinical Impression: Superficial thrombophlebitis Patient Disposition: Home, Self-Care Time of Disposition Decision: 19:14 Condition: Good Prescriptions / Home Meds: No Action sertraline 25 mg tablet sertraline 50 mg tablet Vitamin 27 mg iron- 800 mcg tablet Print Language: [place]ese Instructions: Superficial Thrombophlebitis (ED) Referrals: Pradip Flowers DO [Physician] - 1 week (as scheduled) Devendra Torres ND [Primary Care Provider] - 1 week
--- NOTE | 2024-05-23 19:16 | PC.NURSE ---
Pt presents to ER for left lower extremity pain which she describes as bulging veins on the left calf Pt states she just noticed this today, it is new for her and slightly painful Pt is 22 weeks and concerned for a blood clot
== END 2024-05-23 19:26 | disposition home or self-care (01) ==
PROVIDERS: Emergency Provider Emergency Medicine; PCP Student in an Organized Health Care Education/Training Program
DX: O22.22 Superficial thrombophlebitis in pregnancy, second trimester (principal); I80.03 Phlebitis and thrombophlebitis of superficial vessels of lower extremities, bilateral; Z3A.22 22 weeks gestation of pregnancy
CPT/HCPCS: 99283

== ENCOUNTER 2024-05-29 10:34 | Outpatient (OUT) | payer OTHER, SELFPAY ==
--- OUTSIDE RECORDS SUMMARY | 2024-05-29 10:37 | XMS_ITS | CCD ---
Author Organization [facility] Care Team Providers Care Major Account Manager Name Role Phone DR SHARMILA KING Primary [...] M[place]AG[place] Attending Unavailable SHARMILA KING Referring Unavailable BRIANJOSELINID Karley Primary Care Unavailable BRIANHARRIS Attending Unavailable BRIANHARRIS Referring Unavailable BRIANKALHAMID Karley Primary Care Unavailable BRIANJOSELINID Karley Referring Unavailable BRIANHARRIS Primary Care Unavailable Sharmila King MD Unavailable Harris Montague MD Primary Care Provider [phone] BRIANKALHAMID Karley Primary Care Unavailable NATASHA ELIZABETH [...] PRADIP Attending Unavailable DASHA POWERS Attending Unavailable LIONEL, PRADIP Attending Unavailable Allergies Allergy Classification Reported Allergen(s) Allergy Type Date of Onset Reaction(s) Facility (4 sources) Amoxicillin; Translations: [AMOXICILLIN] Drug Allergy 01-14-[address] [facility] Repository (18 sources) Amoxicillin Drug Allergy 04-07-2021 [facility] Medications Current Medications Medication Drug Class(es) Dates Sig (Normalized) Sig (Original) cephalexin 500 mg oral capsule (3 sources) Cephalosporin Antibacterial Start: 05-06-2024 End: 05-13-2024 take 1 capsule by mouth once in the morning, then take 1 capsule by mouth in the evening, then take 1 capsule by mouth at bedtime cephalexin (Keflex) 500 MG capsule Indications: Second trimester Take 1 capsule (500 mg) by mouth in the morning and 1 capsule (500 mg) in the evening and 1 capsule (500 mg) before bedtime. Do all this for 7 days. 21 capsule 05/06/2024 05/13/2024 Active nicotine 2 mg chewing gum (1 source) Cholinergic Nicotinic Agonist Start: 11-25-2023 Nicotine (Polacrilex) Active 2 MG BUCCAL Q2H November 25, 2023 12:00am ondansetron 4 mg disintegrating oral tablet (14 sources) Serotonin-3 Receptor Antagonist Start: 02-25-2024 End: 04-22-2024 take 1 tablet by mouth every six hours for nausea ondansetron ODT (Zofran-ODT) 4 MG disintegrating tablet Indications: Nausea and vomiting in Take 1 tablet (4 mg) by mouth every 6 (six) hours if needed for nausea or vomiting for up to 30 doses 30 tablet 2 04/21/2024 Active Pnv Cmb#95-Ferrous Fumarate-Fa () 28 mg iron- 800 mcg tablet (1 source) Start: 11-22-2023 take 1 tablet by mouth once daily Pnv Cmb#95-Ferrous Fumarate-Fa () 28 mg iron- 800 mcg tablet Active 1 TAB PO Daily November 22, 2023 12:00am polyethylene glycol 3350 72048 mg powder for oral solution (1 source) Osmotic Laxative Start: 11-22-2023 Polyethylene Glycol 3350 (Miralax) 17 gram/dose powder Active 17 GM PO Daily November 22, 2023 12:00am 25/iron fum/folic/dha (-1 ORAL) (2 sources) take 1 tablet by mouth once daily 25/iron fum/folic/dha (-1 ORAL) Take 1 tablet by mouth daily. 0 Active MV & Min w/FA-DHA ( Gummies) 0.18-25 MG chewable tablet (13 sources) Start: 03-09-2024 MV & Min w/FA-DHA ( Gummies) 0.18-25 MG chewable tablet Indications: First trimester Chew 1 each Daily 30 tablet 11 03/09/2024 Active MV-Min-Fe Fum-FA-DHA ( 1 PO) (1 source) MV-Min- Fe Fum-FA-DHA ( 1 PO) Take 1 tablet by mouth daily 0 Active Vit-Fe Fumarate-FA ( Vitamins) 28-0.8 MG tablet (15 sources) Start: 11-17-2023 take 1 tablet by mouth once daily Vit-Fe Fumarate-FA ( Vitamins) 28-0.8 MG tablet Take 1 tablet by mouth Daily 11/17/2023 Active sertraline 50 mg oral tablet (16 sources) Serotonin Reuptake Inhibitor Start: 01-27-2024 take [...] 3 Episodic Other and delivery including normal (13 sources) Finding of ; Translations: [Encounter for care and examination of lactating mother] Onset: 2 11-07-2021 Episodic Other screening for suspected conditions (not mental disorders or infectious disease) (10 sources) CT of abdomen abnormal; Translations: [Abnormal [...] [15 weeks gestation of ] 04-06-2024 Episodic Residual codes; unclassified (2 sources) Gestation period, 19 weeks; Translations: [19 weeks gestation of ] 05-06-2024 Episodic Residual codes; unclassified (2 sources) Gestation period, 22 weeks; Translations: [22 weeks gestation of ] 05-26-2024 Episodic Unclassified (1 source) Establish Care Onset: [...] Range Facility Urinalysis macro (dipstick) panel (U)on 05-26-2024 Bilirubin, UA Negative Negative - 4(70) +++ mg/dL [facility] Blood, UA Negative Negative - 50 Hosea/mcL [facility] Clarity, UA Clear [facility] Color, UA Yellow [facility] Glucose, UA Negative Negative - 1999(110) ++++ mg/dL [facility] Interpretation and review of laboratory results Abnormal [facility] Ketones, UA Negative Negative - 160(16) ++++ mg/dL [facility] Leukocytes, UA Positive Negative - 500+++ Greg/mcL [facility] Comment on above: small Nitrite, UA Negative Negative - Positive [facility] pH, UA 6.5 5 - 9 [facility] Protein, UA Negative Negative - 1999(20) ++++ mg/dL [facility] Spec Grav, UA 1.015 1 - 1.03 [facility] Urobilinogen, UA 0.2 0.2 - 12 mg/dL [facility] AFP, SERUM, OPEN SPINA BIFID Aon 05-12-2024 AFP MOM 1.30 . [facility] AFP VALUE 43.2 ng/mL . [facility] COMMENT: Comment . [facility] Comment on above: Yola Sellers , Ph.D., [facility] Director References: Available Upon Request. Multiples Of Median Cutoffs For AFP Elevations Montaño 2.5 Black 2.8 IDD 2.0 Twins 4.5 Abbreviation Definitions IDD - Insulin Dep Diabetes OSBR - Open Spina Bifida Risk For further inquiries contact [facility] at [phone]. This test was developed and its performance characteristics determined by [employer]. It has not been cleared or approved by the Food and Drug Administration. Performed at: [facility], [place] [id number] Blood Bank Coordinator: Иван Kearney [facility], Phone: [phone] GEST. AGE ON COLLECTION DATE 15.6 . weeks [facility] GESTAT. AGE BASED ON LMP . [facility] Comment on above: Recalculations are n ot recommended when gestational dating by LMP and ultrasound are within 10 days. INSULIN DEP DIABETES No . [facility] INTERPRETATION Comment . [facility] Comment on above: Interpretation: Scre en Negative This result is screen negative for OSB. The AFP MoM calculated is based on the gestational age provided. MS-AFP can identify up to 80% of open neural tube defects. Closed neural tube defects and some open defects may not be detected by this test. This test does not screen for Down Syndrome or Trisomy 18. If screening for Down Syndrome or Trisomy 18 is desired, contact [facility] to discuss available options. The [employer] recommends amniocentesis be offered to women age 35 and older. MATERNAL AGE AT ARTUR 24.0 [age] [facility] MULTIPLE GESTATION No . [facility] OSBR RISK 1 IN 4803 . [facility] RACE . [facility] RESULTS Report . [facility] TEST RESULTS: Negative . [facility] . [id number] 4 15 N 1 Y 137 N N N N N White/ [facility] Urinalysis macro (dipstick) panel (U)on 05-06-2024 Bilirubin, UA Negative Negative - 4(70) +++ mg/dL [facility] Blood, UA Negative Negative - 50 Hosea/mcL [facility] Clarity, UA Clear [facility] Color, UA Yellow [facility] Glucose, UA Negative Negative - 1999(110) ++++ mg/dL [facility] Interpretation and review of laboratory results Abnormal [facility] Ketones, UA Negative Negative - 160(16) ++++ mg/dL [facility] Leukocytes, UA Positive Negative - 500+++ Greg/mcL [facility] Comment on above: small Nitrite, UA Negative Negative - Positive [facility] pH, UA 7 5 - 9 [facility] Protein, UA Negative Negative - 1999(20) ++++ mg/dL [facility] Spec Grav, UA 1.02 1 - 1.03 [facility] Urobilinogen, UA 0.2 0.2 - 12 mg/dL [facility] IGP,APTIMA HPV,AGE GDLNon AGE GDLN ACOG TESTING Note . [facility] Comment on above: TESTS RESULT FLAG UN ITS REF RANGE LAB Clinician Provided Cytology Information Source.............Cervix No. of containers..01 ThinPrep Vial Age Algo ACOG Krys... 21-29 01 FLAG LEGEND: L-Low Normal,H-High Normal,LL-Alert Low,HH-Alert High <-Panic Low,>-Panic High,A-Abnormal,AA-Critical Abnormal Performed at: 01 =G [address] [address] Eliza Peters MD, IGP, RFX APTIMA HPV ASCU Note . [facility] Comment on above: TESTS RESULT FLAG UN ITS REF RANGE LAB DIAGNOSIS: 02 NEGATIVE FOR INTRAEPITHELIAL LESION OR MALIGNANCY. THIS SPECIMEN WAS RESCREENED PART OF OUR DEATH CLAIM EXAMINER PROGRAM. Specimen adequacy: 02 Satisfactory for evaluation. No endocervical component is identified. Performed by: 02 Alyssia Funez, Inbound Sales Representative (ASC) QC reviewed by: 02 Elena Dumont, Supervisory Inbound Sales Representative (ASCP) . 02 Note: Note 02 The [...] <-Panic Low,>-Panic High,A-Abnormal,AA-Critical Abnormal Performed at: [address] [address] Eliza Peters MD, Performed at: = - [facility] [id number] Blood Bank Coordinator: Eliza Peters MD, Phone: [phone] Performed at: [facility] [address] [id number] Blood Bank Coordinator: Eliza Peters MD, Phone: [phone] SPATULA-ALONE CERVIX [facility] Urinalysis macro (dipstick) panel (U)on 04-06-2024 Bilirubin, UA Negative Negative - 4(70) +++ mg/dL [facility] Blood, UA Negative Negative - 50 Hosea/mcL [facility] Clarity, UA Clear [facility] Color, UA Yellow [facility] Glucose, UA Negative Negative - 1999(110) ++++ mg/dL [facility] Interpretation and review of laboratory results Abnormal [facility] Ketones, UA Positive Negative - 160(16) ++++ mg/dL [facility] Comment on above: trace Leukocytes, UA Negative Negative - 500+++ Greg/mcL [facility] Nitrite, UA Negative Negative - Positive [facility] pH, UA 7 5 - 9 [facility] Protein, UA Negative Negative - 1999(20) ++++ mg/dL [facility] Spec Grav, UA 1.025 1 - 1.03 [facility] Urobilinogen, UA 1.0 0.2 - 12 mg/dL [facility] Urinalysis macro (dipstick) panel (U)on 03-09-2024 Bilirubin, UA Negative Negative - 4(70) +++ mg/dL [facility] Blood, UA Negative Negative - 50 Hosea/mcL [facility] Clarity, UA Clear [facility] Color, UA Yellow [facility] Glucose, UA Negative Negative - 1999(110) ++++ mg/dL [facility] Interpretation and review of laboratory results Abnormal [facility] Ketones, UA Negative Negative - 160(16) ++++ mg/dL [facility] Leukocytes, UA Trace Negative - 500+++ Greg/mcL [facility] Nitrite, UA Negative Negative - Positive [facility] pH, UA 6.5 5 - 9 [facility] Protein, UA Negative Negative - 1999(20) ++++ mg/dL [facility] Spec Grav, UA 1.02 1 - 1.03 [facility] Urobilinogen, UA 0.2 0.2 - 12 mg/dL [facility] CBC AND AUTO DIFFon 02-19-20 ABSOLUTE BASOPHIL 0.0 X10E9/L Normal 0.0-0.2 [facility] Comment on above: Performed By: #### C MIL [facility], #### [facility] ([id number]) [address] [place] [address] ABSOLUTE NEUTROPHIL 6.7 X10E9/L High 1.5-6.6 [facility] Comment on above: Performed By: #### C MIL [facility], #### [facility] ([id number]) [address] [place] [address] Basophils/100 WBC (Bld) 0.3 % Normal P [facility] Comment on above: Performed By: #### C MIL [facility], #### [facility] ([id number]) [address] [place] [address]183 Eosinophils (Bld) [#/Vol] 0.0 10*3/uL Normal 0.0-0.4 [facility] Comment on above: Performed By: #### C NIKA JAEGER, #### [facility] ([id number]) [address] [place] [address] Eosinophils/100 WBC (Bld) 0.4 % Normal [facility] Comment on above: Performed By: #### Manish JAEGER CMP, #### [facility] ([id number]) [address] [place] [address] 23210 Erythrocyte distribution width (RBC) [Ratio] 14.2 % Normal 11.5-15.0 [facility] Comment on above: Performed By: #### Manish JAEGER CMP, #### [facility] ([id number]) [address] [place] [address] 27621 Hematocrit (Bld) [Volume fraction] 40.0 % Normal 35-47 [facility] Comment on above: Performed By: #### Manish JAEGER CMP, #### [facility] ([id number]) [address] [place] [address] 10163 Hemoglobin (Bld) [Mass/Vol] 13.7 g/dL Normal 11.7-15.5 [facility] Comment on above: Performed By: #### Manish JAEGER CMP, #### [facility] ([id number]) [address] [place] [address] 97026 Lymphocytes (Bld) [#/Vol] 1.6 10*3/uL Normal 1.0-3.5 [facility] Comment on above: Performed By: #### Manish JAEGER CMP, #### [facility] ([id number]) [address] [place] [address] 91976 Lymphocytes/100 WBC (Bld) 17.6 % Normal [facility] Comment on above: Performed By: #### Manish JAEGER CMP, #### [facility] ([id number]) [address] [place] [address] 20090 MCH (RBC) [Entitic mass] 31.3 pg Normal 27-34 [facility] Comment on above: Performed By: #### Manish JAEGER CMP, #### [facility] ([id number]) [address] [place] [address] 56417 MCHC (RBC) [Mass/Vol] 34.3 g/dL Normal 32-36 [facility] Comment on above: Performed By: #### Manish JAEGER CMP, #### [facility] ([id number]) [address] [place] [address] 98359 MCV (RBC) [Entitic vol] 91 fL Normal 80-100 [facility] Comment on above: Performed By: #### Manish JAEGER CMP, #### [facility] ([id number]) [address] [place] [address] 13121 Monocytes (Bld) [#/Vol] 0.6 10*3/uL Normal 0-0.9 [facility] Comment on above: Performed By: #### Manish JAEGER CMP, #### [facility] ([id number]) [address] [place] [address] 64498 Monocytes/100 WBC (Bld) 6.6 % Normal [facility] Comment on above: Performed By: #### Manish JAEGER CMP, #### [facility] ([id number]) [address] [place] [address] 15432 Neutrophils/100 WBC (Bld) 75.1 % Normal [facility] Comment on above: Performed By: #### Manish JAEGER CMP, #### [facility] ([id number]) [address] [place] [address] 36287 Platelet mean volume (Bld) [Entitic vol] 9.0 fL Normal 7-12 [facility] Comment on above: Performed By: #### C MIL [facility], #### [facility] ([id number]) [address] [place] [address] 18237 Platelets (Bld) [#/Vol] 173 10*3/uL Normal 150-450 [facility] Comment on above: Performed By: #### Manish JAEGER [facility], #### [facility] ([id number]) [address] [place] [address] 59023 RBC COUNT 4.39 X10E12/L Normal 3.80-5.20 [facility] Comment on above: Performed By: #### Manish JAEGER CMP, #### [facility] ([id number]) [address] [place] [address] 90025 WBC (Bld) [#/Vol] 8.9 10*3/uL Normal 4.0-11.0 [facility] Comment on above: Performed By: #### Manish JAEGER [facility], #### [facility] ([id number]) [address] [place] [address] 36945 DRUG SCREEN, URINEon 024 AMPHETAMINE/METHAMP Negative Normal NEG [facility] Comment on above: Result Comment: AMPH /METH screening cut off = 1000 ng/mL Performed By: #### Manish JAEGER [facility], #### [facility] ([id number]) [address] [place] [address] [place] [address] BARBITURATES Negative Normal NEG [facility] Comment on above: Result Comment: Marcela iturates screening cut off value = 200 ng/mL Performed By: #### Manish JAEGER CMP, #### [facility] ([id number]) [address] [place] [address] [place] [address] BENZODIAZEPINES Negative Normal NEG [facility] Comment on above: Result Comment: Jose odiazepines screening cut off value = 200 ng/mL Performed By: #### C NIKA JAEGER, #### [facility] ([id number]) [address] [place] [address] 35558 CANNABINOIDS Negative Normal NEG [facility] Comment on above: Result Comment: Tre abinoids/THC screening cut off value = 50 ng/mL Performed By: #### C NIKA JAEGER, #### [facility] ([id number]) [address] [place] [address] 026[address] COCAINE METABOLITE Negative Normal NEG [facility] Comment on above: Result Comment: Coca ine screening cut off value = 300 ng/mL Performed By: #### C NIKA JAEGER, #### [facility] ([id number]) [address] [place] [address] 92758 ECSTASY Negative Normal NEG [facility] Comment on above: Result Comment: Ecst asy screening cut off value = 500 ng/mL This report is intended for use in clinical monitoring or management of patients. Performed By: #### C NIKA JAEGER, #### [facility] ([id number]) [address] [place] [address] 98561 METHADONE Negative Normal [facility] Comment on above: Result Comment: Meth adone screening cut off value = 300 ng/mL. Performed By: #### C NIKA JAEGER, #### [facility] ([id number]) [address] [place] [address] 37965 OPIATES Negative Normal NEG [facility] Comment on above: Result Comment: Opia krys screening cut off value = 300 ng/mL NOTE: This test is used for the detection of codeine, hydrocodone (>1000 ng/mL), morphine and hydromorphone (>900 ng/mL) in urine. Performed By: #### C NIKA JAEGER, #### [facility] ([id number]) [address] [place] [address] 16938 OXYCODONE Negative Normal NEG [facility] Comment on above: Result Comment: Oxyc odone screening cut off value = 300 ng/mL NOTE: This test is used for the detection of oxycodone and oxymorphone in urine. Performed By: #### C NIKA JAEGER, #### [facility] ([id number]) [address] [place] [address] 24608 PHENCYCLIDINE Negative Normal NEG [facility] Comment on above: Result Comment: Phen cyclidine screening cut off value = 25 ng/mL Performed By: #### C NIKA JAEGER, #### [facility] ([id number]) [address] [place] [address] 81285 HBV surface Ag IA Qlon 02-18 HEPATITIS B SURF AG Negative Normal NEG [facility] Comment on above: Performed By: #### C NIKA JAEGER, #### [facility] ([id number]) [address] [place] [address] 47444 HCG ( test) Ql (U)o n 02-19-2024 Interpretation and review of laboratory results Abnormal [facility] Preg Test, Ur Positive [facility] HCV Ab IA Qlon 02-19-2024 ANTI HCV W/PCR REFLX Non-Reactive Normal NRCT Pr [facility] Comment on above: Result Comment: If recent infection suspected, recommend repeat testing (>2 months). Ekffed-nb-bxhjri ratio is <0.80. Performed By: #### C NIKA JAEGER, #### [facility] ([id number]) [address] [place] [address] 21306 HGB A1C (GLYCO-HGB)on 2023 Glucose [Mass/Vol] 105 mg/dL Normal [facility] Comment on above: Performed By: #### C NIKA JAEGER, #### [facility] ([id number]) [address] [place] [address] 46042 HbA1c (Bld) [Mass fraction] 5.3 % Normal 4.4-5.6 [facility] Comment on above: Result Comment: NOTE ADA Guidelines Result HgbA1c Normal : less than 5.7 % Prediabetes : 5.7 % to 6.4 % Diabetes : > 6.4 % Use with caution in patients with abnormal hemoglobin variants as the half-life of red blood cells and in vivo glycation rates are affected. Performed By: #### C NIKA JAEGER, 47381-2 #### [facility] ([id number]) [address] [place] [address] 82802 HIV 1+2 Ab+HIV1 p24 Ag IA Ql on 02-19-2024 HIV 1 and 2 Ab/Ag Screen Non-Reactive Normal NRCT [facility] Comment on above: Result Comment: This information [...] results or diagnoses. Performed By: #### C MIL, NIKA, #### [facility] ([id number]) [address] [place] [address] 39845 Rubella virus IgG Qn (S)on RUBELLA IgG 119 IU/mL Normal [facility] Comment on above: Result Comment: Interpretation-------- <8 NEGATIVE-considered Not Immune 8-9 EQUIVOCAL-consider retesting with new specimen >9 POSITIVE-considered Immune Performed By: #### C NIKA JAEGER, #### [facility] ([id number]) [address] [place] [address] 66392 T. pallidum IgG+IgM IA Ql (S )on 02-19-2024 Syphilis Total <0.2 Normal 0.0-0.8 [facility] Comment on above: Result Comment: NON REACTIVE No serologic evidence of infection to Treponema pallidum (syphilis). Repeat testing may be considered in patients with suspected acute or primary syphilis in 2 to 4 weeks. Performed By: #### C NIKA JAEGER, #### [facility] ([id number]) [address] [place] [address] 11581 URINE CULTUREon 02-19-2024 Bacteria identified Cx Nom (U) CULTURE RESULTS 10-50,000 ORGANISMS/mL NORMAL UROGENITAL KACEY Normal [facility] Comment on above: Performed By: #### C NIKA JAEGER, #### [facility] ([id number]) [address] [place] [address] 45575 Urinalysis macro (dipstick) panel (U)on 02-19-2024 Bilirubin, UA Negative Negative - 4(70) +++ mg/dL [facility] Blood, UA Negative Negative - 50 Hosea/mcL [facility] Clarity, UA Clear [facility] Color, UA Yellow [facility] Glucose, UA Negative Negative - 1999(110) ++++ mg/dL [facility] Interpretation and review of laboratory results Normal [facility] Ketones, UA Negative Negative - 160(16) ++++ mg/dL [facility] Leukocytes, UA Negative Negative - 500+++ Greg/mcL [facility] Nitrite, UA Negative Negative - Positive [facility] pH, UA 5.5 5 - 9 [facility] Protein, UA Negative Negative - 2000(20) ++++ mg/dL [facility] Spec Grav, UA 1.015 1 - 1.03 [facility] Urobilinogen, UA 1.0 0.2 - 12 mg/dL [facility] URINE CULTUREon 02-05-2024 Bacteria identified Cx Nom (U) CULTURE RESULTS 10-50,000 ORGANISMS/mL NORMAL UROGENITAL KACEY Normal [facility] Comment on above: Performed By: #### 6 30-4 #### [facility] ([id number]) [address], [address] [place] [address] Alanine aminotransferase [En zymatic activity/volume] in Serum or PlasmaOrdered By: Krzysztof Montesinos on 11-24-2023 ALT [Catalytic activity/Vol] 9 U/L Normal 7-52 [facility] Comment on above: Performed By: #### C MP #### [facility] [address] Albumin [Mass/volume] in Ser um or Plasma by Bromocresol green (BCG) dye binding methoOrdered By: Krzysztof Montesinos on 11-24-2023 Albumin BCG dye [Mass/Vol] 4.3 g/dL 3.5-5.7 [facility] Alkaline phosphatase [Enzyma tic activity/volume] in Serum or PlasmaOrdered By: Krzysztof Montesinos on 11-24-2023 ALP [Catalytic activity/Vol] 39 U/L Normal 34-104 [facility] Comment on above: Performed By: #### C MP #### [facility] [address] [place] [id number] [place] Aspartate aminotransferase [ Enzymatic activity/volume] in Serum or PlasmaOrdered By: Krzysztof Montesinos on 11-24-2023 AST [Catalytic activity/Vol] 14 U/L Normal 13-39 [facility] Comment on above: Performed By: #### C MP #### [facility] [address] [place] [id number] [place] Bilirubin.total [Mass/volume ] in Serum or PlasmaOrdered By: Krzysztof Montesinos on 11-24-2023 Bilirubin [Mass/Vol] 1.0 mg/dL Normal 0.3-1.0 [facility] Comment on above: Performed By: #### C MP #### [address] Calcium [Mass/volume] in Ser um or PlasmaOrdered By: Krzysztof Montesinos on 11-24-2023 Calcium [Mass/Vol] 9.0 mg/dL Normal 8.6-10.3 [facility] Comment on above: Performed By: #### C MP #### [address] Carbon dioxide, total [Moles /volume] in Serum or PlasmaOrdered By: Krzysztof Montesinos on 11-24-2023 CO2 [Moles/Vol] 25.4 mmol/L Normal 21.0-31.0 [facility] Comment on above: Performed By: #### C MP #### [address] Chloride [Moles/volume] in S delgado or PlasmaOrdered By: Krzysztof Montesinos on 11-24-2023 Chloride [Moles/Vol] 111 mmol/L High 98-107 [facility] Comment on above: Performed By: #### C MP #### [address] Comprehensive Metabolic Pane thomas 11-24-2023 Albumin [Mass/Vol] 4.3 g/dL Normal 3.5-5.7 [facility] Comment on above: Performed By: #### C MP #### [address] Creatinine Clr Calc Pharmacy 94.43 Normal [facility] Comment on above: Result Comment: PERF ORMED BY: [place] [address] PATHOLOGIST SLEEVE SETTER MARGARITA CUELLAR M.D. Performed By: #### C MP #### [address] GFR/1.73 sq M.predicted MDRD (S/P/Bld) [Vol rate/Area] mL/min/{1.73_m2} Normal [facility] Comment on above: Performed By: #### C MP #### [facility] [address] Creatinine [Mass/volume] in Serum or PlasmaOrdered By: Krzysztof Montesinos on 11-24-2023 Creatinine [Mass/Vol] 0.86 mg/dL Normal 0.60-1.20 [facility] Comment on above: Performed By: #### C MP #### [facility] [address] Glucose [Mass/volume] in Ser um or PlasmaOrdered By: Krzysztof Montesinos on 11-24-2023 Glucose [Mass/Vol] 94 mg/dL Normal 70-100 [facility] Comment on above: ADA recommended refe rence rangeRandom Glucose Reference Range is dependent on time and content of last meal. Glucose of more than 200 mg/dL in a nonstressed, ambulatory subject supports the diagnosis of Diabetes Mellitus. Result Comment: [place] Glucose Reference Range is dependent on time and content of last meal. Glucose of more than 200 mg/dL in a nonstressed, ambulatory subject supports the diagnosis of Diabetes Mellitus. ADA recommended reference range Performed By: #### C MP #### [address] No Panel InformationOrdered By: Krzysztof Montesinos on 11-24-2023 Estimated GFR (CKD-EPI) > 60.0 mL/Min [facility] Creatinine Clearance (Chem 94.43 [facility] Potassium [Moles/volume] in Serum or PlasmaOrdered By: Krzysztof Montesinos on 11-24-2023 Potassium [Moles/Vol] 4.7 mmol/L Normal 3.5-5.1 [facility] Comment on above: Performed By: #### C MP #### [address] Protein [Mass/volume] in Ser um or PlasmaOrdered By: Krzysztof Montesinos on 11-24-2023 Protein [Mass/Vol] 6.7 g/dL Normal 6.4-8.9 [facility] Comment on above: Performed By: #### C MP #### [address] Serum globulin measurement b y calculation (mass/volume)Ordered By: Krzysztof Montesinos on 11-24-2023 Globulin (S) [Mass/Vol] 2.4 g/dL Normal F [facility] Comment on above: Performed By: #### C MP #### [address] Serum or plasma albumin/glob ulin mass ratioOrdered By: Krzysztof Montesinos on 11-24-2023 Albumin/Globulin [Mass ratio] 1.8 {ratio} Normal [facility] Comment on above: Performed By: #### C MP #### [address] Serum or plasma anion gap de terminationOrdered By: Krzysztof Montesinos on 11-24-2023 Anion gap [Moles/Vol] 9.3 mmol/L Normal 6.0-15.0 [facility] Comment on above: Performed By: #### C MP #### [address] Sodium [Moles/volume] in Ser um or PlasmaOrdered By: Krzysztof Montesinos on 11-24-2023 Sodium [Moles/Vol] 141 mmol/L Normal 136-145 [facility] Comment on above: Performed By: #### C MP #### [address] Urea nitrogen [Mass/volume] in Serum or PlasmaOrdered By: Krzysztof Montesinos on 11-24-2023 Urea nitrogen [Mass/Vol] 12 mg/dL Normal 7-25 [facility] Comment on above: Performed By: #### C MP #### [place] [address] [place] Cholesterol [Mass/volume] in Serum or PlasmaOrdered By: Krzysztof Montesinos on 11-23-2023 Cholesterol [Mass/Vol] 129 mg/dL Low 140-200 [facility] Comment on above: Chol less than 200 m g/dl low riskChol 201-239 mg/dl borderline riskChol 240 mg/dl and greater high risk Result Comment: Chol less than 200 mg/dl low risk Chol 201-239 mg/dl borderline risk Chol 240 mg/dl and greater high risk Performed By: #### L IPID, TSH3 wRFLX, [id number] #### [facility] [address] [place] [address] [place] Cholesterol in LDL Calc [Mas s/Vol]Ordered By: Krzysztof Montesinos on 11-23-2023 Cholesterol in LDL [Mass/Vol] 64 mg/dL 0-100 [facility] Comment on above: LDL ATP III CLASSIFI CATIONLDL less than 100 mg/dL OptimalLDL 100-129 mg/dL Near or above optimalLDL 130-159 mg/dL Borderline highLDL 160-189 mg/dL HighLDL greater than 189 mg/dL Very high Cholesterol in VLDL Calc [Ma ss/Vol]Ordered By: Krzysztof Montesinos on 11-23-2023 Cholesterol in VLDL [Mass/Vol] 7 mg/dL [facility] Lipid Panelon 11-23-2023 LDL Cholesterol,Calculated 64 mg/dL Normal 0-100 [facility] Comment on above: Result Comment: LDL ATP III CLASSIFICATION LDL less than 100 mg/dL Optimal LDL 100-129 mg/dL Near or above optimal LDL 130-159 mg/dL Borderline high LDL 160-189 mg/dL High LDL greater than 189 mg/dL Very high Performed By: #### L IPID, TSH3 wRFLX, [id number] #### [facility] [address] [place] [address] [place] Triglyceride w/Reflex 39 mg/dL Normal 0-149 [facility] Comment on above: Result Comment: TRIG ATP III CLASSIFICATION TRIG less than 150 mg/dL Normal TRIG 150-199 mg/dL Borderline high TRIG 200-500 mg/dL High TRIG greater than 500 mg/dL Very high Standard traceable to the Center for Disease Conrtrol and Prevention (CDC) test method. Performed By: #### L IPID, TSH3 wRFLX, [id number] #### [facility] [address] [place] [address] VLDL CHOLESTEROL 7 mg/dL Normal [facility] Comment on above: Performed By: #### L IPID, TSH3 wRFLX, [id number] #### [address] Serum or plasma high density lipoprotein (HDL) cholesterol measurementOrdered By: Krzysztof Montesinos on 11-23-2023 Cholesterol in HDL [Mass/Vol] 57 mg/dL Normal 23-92 [facility] Comment on above: HDL CHOL ATP-III CLA SSIFICATION Cardiovascular RiskHDL > or equal to 60 mg/dL LOWHDL < 40 mg/dL HIGH Result Comment: HDL CHOL ATP-III CLASSIFICATION Cardiovascular Risk HDL > or equal to 60 mg/dL LOW HDL < 40 mg/dL HIGH Performed By: #### L IPID, TSH3 wRFLX, [id number] #### [address] Serum or plasma total choles terol/high density lipoprotein (HDL) cholesterol mass ratOrdered By: Krzysztof Montesinos on 11-23-2023 Cholesterol.total/Choles terol in HDL [Mass ratio] 2.3 {ratio} Normal <5.0 [facility] Comment on above: Performed By: #### L IPID, TSH3 wRFLX, [id number] #### [facility] [address] [place] [address] Thyroid Stim Hormone w/Rflxo n 11-23-2023 Thyroid Stim Hormone w/Rflx 1.52 u[iU]/mL Normal 0.45-5.33 [facility] Comment on above: Performed By: #### L IPID, TSH3 wRFLX, [id number] #### [address] Thyrotropin [Units/volume] i n Serum or PlasmaOrdered By: Krzysztof Montesinos on 11-23-2023 TSH Qn 1.52 m[IU]/L 0.45-5.33 [facility] Triglyceride [Mass/volume] i n Serum or PlasmaOrdered By: Krzysztof Montesinos on 11-23-2023 Triglyceride [Mass/Vol] 39 mg/dL 0-149 [facility] Comment on above: TRIG ATP III CLASSIF ICATIONTRIG less than 150 mg/dL NormalTRIG 150-199 mg/dL Borderline highTRIG 200-500 mg/dL High TRIG greater than 500 mg/dL Very highStandard traceable to the Center for Disease Conrtrol and Prevention (CDC) test method. Vitamin D 25 Hydroxy Totalon 11-23-2023 Vitamin D 25 Hydroxy Total 23.9 ng/mL Low 30-100 [facility] Comment on above: Result Comment: NATE MIN D STATUS 25(OH)VITAMIN D RANGE (ng/mL) Deficient <20 Insufficient 20 to <30 Sufficient 30 to 100 Reference: Ysabel Robertson, Jia CABRERA, et al. Evaluation,treatment, and prevention of vitamin D deficiency; an Endocrine Society clinical practice guideline. JCEM. 2010; 96(7):1911-30. PERFORMED BY: [place] [address] PATHOLOGIST SLEEVE SETTER MARGARITA CUELLAR M.D. Performed By: #### L IPID, TSH3 wRFLX, [id number] #### [address] Vitamin D+Metabolites [Mass/ volume] in Serum or PlasmaOrdered By: Krzysztof Montesinos on 11-23-2023 Vitamin D+Metabolites [Mass/Vol] 23.9 ng/mL Low 30-100 [facility] Comment on above: VITAMIN D STATUS 25( [place])VITAMIN D RANGE (ng/mL) Deficient <20 Insufficient 20 to <30Sufficient 30 to 100Reference: Ysabel Robertson, Jia CABRERA, et al. Evaluation,treatment, and prevention of vitamin D deficiency; an Endocrine Society clinical practice guideline. JCEM. 2010; 96(7):1911-30. BASIC METABOLIC PANLon 11-21 Anion gap [Moles/Vol] 6 mmol/L Normal 5-15 [facility] Comment on above: Performed By: #### C NIKA JAEGER, #### [facility] ([id number]) [address] [place] [address]92 Calcium [Mass/Vol] 8.6 mg/dL Normal 8.5-10.5 [facility] Comment on above: Performed By: #### C NIKA JAEGER, #### [facility] ([id number]) [address] [place] [address] 48391 Chloride [Moles/Vol] 108 mmol/L Normal 98-109 [facility] Comment on above: Performed By: #### C NIKA JAEGER, #### [facility] ([id number]) [address] [place] [address] 11448 CO2 [Moles/Vol] 22 mmol/L Normal 22-32 [facility] Comment on above: Performed By: #### C NIKA JAEGER, #### [facility] ([id number]) [address] [place] [address] 07675 Creatinine [Mass/Vol] 0.84 mg/dL Normal 0.40-1.00 [facility] Comment on above: Result Comment: METH OD TRACEABLE TO IDMS STANDARD Performed By: #### C NIKA JAEGER, #### [facility] ([id number]) [address] [place] [address] 73313 eGFR (CKD-EPI) NON-RACE DEPENDENT >90 Normal >59 [facility] Comment on above: Result Comment: Reported eGFR is based on the CKD-EPI 2020 equation that does not use a race coefficient. Performed By: #### C NIKA JAEGER, #### [facility] ([id number]) [address] [place] [address] 89485 Glucose [Mass/Vol] 98 mg/dL Normal 65-99 [facility] Comment on above: Performed By: #### C BCA, CMP, #### [facility] ([id number]) [address] [place] [address] 19374 Potassium [Moles/Vol] 3.3 mmol/L Low 3.5-5.0 [facility] Comment on above: Performed By: #### C BCA, CMP, #### [facility] ([id number]) [address] [place] [address] 57253 Sodium [Moles/Vol] 136 mmol/L Normal 134-146 [facility] Comment on above: Performed By: #### C BCA, CMP, #### [facility] ([id number]) [address] [place] [address] 28134 Urea nitrogen [Mass/Vol] 14 mg/dL Normal 5-23 [facility] Comment on above: Performed By: #### C BCA, CMP, #### [facility] ([id number]) [address] [place] [address] 44257 CBC AND AUTO DIFFon 11-22-19 24 ABSOLUTE BASOPHIL 0.0 X10E9/L Normal 0.0-0.2 [facility] Comment on above: Performed By: #### C BCA, CMP, #### [facility] ([id number]) [address] [place] [address] 26337 ABSOLUTE NEUTROPHIL 5.3 X10E9/L Normal 1.5-6.6 [facility] Comment on above: Performed By: #### C BCA, CMP, #### [facility] ([id number]) [address] [place] [address] 27191 Basophils/100 WBC (Bld) 0.5 % Normal [facility] Comment on above: Performed By: #### C BCA, CMP, #### [facility] ([id number]) [address] [place] [address] 51725 Eosinophils (Bld) [#/Vol] 0.1 10*3/uL Normal 0.0-0.4 [facility] Comment on above: Performed By: #### Manish JAEGER CMP, #### [facility] ([id number]) [address] [place] [address] 79273 Eosinophils/100 WBC (Bld) 0.7 % Normal [facility] Comment on above: Performed By: #### Manish JAEGER CMP, #### [facility] ([id number]) [address] [place] [address] 18245 Erythrocyte distribution width (RBC) [Ratio] 14.2 % Normal 11.5-15.0 [facility] Comment on above: Performed By: #### Manish JAEGER CMP, #### [facility] ([id number]) [address] [place] [address] 50047 Hematocrit (Bld) [Volume fraction] 41.6 % Normal 35-47 [facility] Comment on above: Performed By: #### Manish JAEGER CMP, #### [facility] ([id number]) [address] [place] [address] 73744 Hemoglobin (Bld) [Mass/Vol] 14.3 g/dL Normal 11.7-15.5 [facility] Comment on above: Performed By: #### Manish JAEGER CMP, #### [facility] ([id number]) [address] [place] [address] 76457 Lymphocytes (Bld) [#/Vol] 1.8 10*3/uL Normal 1.0-3.5 [facility] Comment on above: Performed By: #### Manish JAEGER CMP, #### [facility] ([id number]) [address] [place] [address] 26024 Lymphocytes/100 WBC (Bld) 23.3 % Normal [facility] Comment on above: Performed By: #### Manish JAEGER CMP, #### [facility] ([id number]) [address] [place] [address] 33172 MCH (RBC) [Entitic mass] 30.6 pg Normal 27-34 [facility] Comment on above: Performed By: #### Manish JAEGER CMP, #### [facility] ([id number]) [address] [place] [address] 63927 MCHC (RBC) [Mass/Vol] 34.5 g/dL Normal 32-36 [facility] Comment on above: Performed By: #### Manish JAEGER CMP, #### [facility] ([id number]) [address] [place] [address] 53438 MCV (RBC) [Entitic vol] 89 fL Normal 80-100 [facility] Comment on above: Performed By: #### Manish JAEGER, CMP, #### [facility] ([id number]) [address] [place] [address] 71644 Monocytes (Bld) [#/Vol] 0.5 10*3/uL Normal 0-0.9 [facility] Comment on above: Performed By: #### Manish JAEGER, CMP, #### [facility] ([id number]) [address] [place] [address] 15924 Monocytes/100 WBC (Bld) 6.6 % Normal [facility] Comment on above: Performed By: #### Manish JAEGER, CMP, #### [facility] ([id number]) [address] [place] [address] 83839 Neutrophils/100 WBC (Bld) 68.9 % Normal [facility] Comment on above: Performed By: #### Manish JAEGER [facility], #### [facility] ([id number]) [address] [place] [address] 29329 Platelet mean volume (Bld) [Entitic vol] 9.0 fL Normal 7-12 [facility] Comment on above: Performed By: #### Manish JAEGER [facility], #### [facility] ([id number]) [address] [place] [address] 26747 Platelets (Bld) [#/Vol] 186 10*3/uL Normal 150-450 [facility] Comment on above: Performed By: #### Manish JAEGER CMP, #### [facility] ([id number]) [address] [place] [address] 09532 RBC COUNT 4.68 X10E12/L Normal 3.80-5.20 [facility] Comment on above: Performed By: #### Manish JAEGER [facility], #### [facility] ([id number]) [address] [place] [address] 46178 WBC (Bld) [#/Vol] 7.7 10*3/uL Normal 4.0-11.0 [facility] Comment on above: Performed By: #### Manish JAEGER [facility], #### [facility] ([id number]) [address] [place] [address] 96518 DRUG SCREEN, URINEon 024 AMPHETAMINE/METHAMP Negative Normal NEG [facility] Comment on above: Result Comment: AMPH /METH screening cut off = 1000 ng/mL Performed By: #### Manish JAEGER CMP, #### [facility] ([id number]) [address] [place] [address] 46904 BARBITURATES Negative Normal NEG [facility] Comment on above: Result Comment: Marcela iturates screening cut off value = 200 ng/mL Performed By: #### C MIL, [facility], #### [facility] ([id number]) [address] [place] [address] 97105 BENZODIAZEPINES Negative Normal NEG [facility] Comment on above: Result Comment: Jose odiazepines screening cut off value = 200 ng/mL Performed By: #### C MIL, [facility], #### [facility] ([id number]) [address] [place] [address] 52119 CANNABINOIDS Negative Normal NEG [facility] Comment on above: Result Comment: Tre abinoids/THC screening cut off value = 50 ng/mL Performed By: #### C MIL, [facility], #### [facility] ([id number]) [address] [place] [address] 98037 COCAINE METABOLITE Negative Normal NEG [facility] Comment on above: Result Comment: Coca ine screening cut off value = 300 ng/mL Performed By: #### C MIL, [facility], #### [facility] ([id number]) [address] [place] [address] 76273 ECSTASY Negative Normal [facility] Comment on above: Result Comment: Ecst asy screening cut off value = 500 ng/mL This report is intended for use in clinical monitoring or management of patients. Performed By: #### C MIL [facility], #### [facility] ([id number]) [address] [place] [address] 26115 METHADONE Negative Normal NEG [facility] Comment on above: Result Comment: Meth adone screening cut off value = 300 ng/mL. Performed By: #### C MIL, [facility], #### [facility] ([id number]) [address] [place] [address] 96300 OPIATES Negative Normal NEG [facility] Comment on above: Result Comment: Opia krys screening cut off value = 300 ng/mL NOTE: This test is used for the detection of codeine, hydrocodone (>1000 ng/mL), morphine and hydromorphone (>900 ng/mL) in urine. Performed By: #### C NIKA JAEGER, 84690-0 #### [facility] ([id number]) [address] [place] [address] 32481 OXYCODONE Negative Normal NEG [facility] Comment on above: Result Comment: Oxyc odone screening cut off value = 300 ng/mL NOTE: This test is used for the detection of oxycodone and oxymorphone in urine. Performed By: #### C NIKA JAEGER, 08149-8 #### [facility] ([id number]) [address] [place] [address] 07174 PHENCYCLIDINE Negative Normal NEG [facility] Comment on above: Result Comment: Phen cyclidine screening cut off value = 25 ng/mL Performed By: #### C MIL [facility], 67147-2 #### [facility] ([id number]) [address] [place] [address] 12555 ECG 12 lead ECGon 11-22-2023 ECG 12 lead ECG [facility] [place] [address] Electrocardiograph Report Signed Patient: Megan Collado MR#: [id number] : 2000 Acct:[id number] Age/Sex: 23 / F ADM Date: 11/22/23 Loc: Room: [address] [place] [address] Type: ADM IN Attending Dr: Krzysztof Montesinos [...] Sinus rhythm with sinus arrhythmia with short KS Otherwise normal ECG No previous ECGs available Confirmed by HODAN ROBERT [facility], GEMA ([id number]) on 11/23/2023 9:57:14 AM Referred By: Electronically Signed By:GEMA SLAUGHTER MD [facility] Transcribed By: MUS Signed By Gema Slaughter MD, [facility] 11/23/23 0957 Normal [facility] ETHANOLon 11-22-2023 Ethanol [Mass/Vol] mg/dL Normal 0.00-0.08 [facility] Comment on above: Result Comment: This report is intended for use in clinical monitoring or management of patients. Performed By: #### C NIKA JAEGER, 52758-8 #### [facility] ([id number]) [address] [place] [address] 99645 HCG ( test) Ql (U)o n 11-22-2023 Beta HCG ( test) Ql (U) Negative Normal NEG [facility] Comment on above: Performed By: #### 2 106-3 #### [facility] ([id number]) [address] [place] [address] 99626 TSH Qnon 11-22-2023 TSH 1.42 uIU/mL Normal 0.49-4.67 [facility] Comment on above: Performed By: #### C NIKA JAEGER, 26236-5 #### [facility] ([id number]) [address] [place] [address] 89040 URN MACROSCOPIC NURon 2023 BILIRUBIN BAO Negative Normal NEG [facility] Comment on above: Performed By: #### N UM #### [facility] ([id number]) [address] [place] [address] 17700 BLOOD/HGB BAO Negative Normal NEG [facility] Comment on above: Performed By: #### N UM #### [facility] ([id number]) [address] [place] [address] 19037 GLUCOSE BAO Negative Normal NEG [facility] Comment on above: Performed By: #### N UM #### [facility] ([id number]) [address] [place] [address] 29944 KETONES BAO Negative Normal NEG [facility] Comment on above: Performed By: #### N UM #### [facility] ([id number]) [address] [place] [address] 36446 LEUKOCYTE ESTERASE BAO Negative Normal NEG [facility] Comment on above: Performed By: #### N UM #### [facility] ([id number]) [address] [place] [address] 97199 NITRITE BAO Negative Normal NEG [facility] Comment on above: Performed By: #### N UM #### [facility] ([id number]) [address] [place] [address] 17238 PH BAO 6.5 Normal 5.0-8.5 [facility] Comment on above: Performed By: #### N UM #### [facility] ([id number]) [address] [place] [address] 21712 PROTEIN BAO Negative Normal NEG [facility] Comment on above: Performed By: #### N UM #### [facility] ([id number]) [address] [place] [address] 27078 SPECIFIC GRAVITY BAO 1.010 Normal 1.003-1.035 [facility] Comment on above: Performed By: #### N UM #### [facility] ([id number]) [address] [place] [address] 61126 UROBILINOGEN BAO 0.2 eu/dL Normal <1.1 [facility] Comment on above: Performed By: #### N UM #### [facility] ([id number]) [address] [place] [address] 95706 HCG.beta subunit IA 3rd IS Q non 08-29-2023 SERUM B HCG,3RD I.S. <5 Normal [facility] Comment on above: Result Comment: [...] neoplasms. Performed By: #### 2 0415-6 #### [facility] ([id number]) [address] [place] [address], [address] [place] [address] HCG.beta subunit IA 3rd IS Q non 08-22-2023 HCG.beta subunit Qn 11 m[IU]/mL Normal [facility] Comment on above: Result Comment: [...] neoplasms. Performed By: #### 2 0415-6 #### [facility] ([id number]) [address] [place] [address], [address] [place] [address] HCG.beta subunit IA 3rd IS Q non 08-13-2023 HCG.beta subunit Qn 60 m[IU]/mL Normal [facility] Comment on above: Result Comment: [...] neoplasms. Performed By: #### 2 0415-6 #### [facility] ([id number]) [address] [place] [address], [address] [place] [address] HCG.beta subunit IA 3rd IS Q non 08-06-2023 HCG.beta subunit Qn 394 m[IU]/mL Normal [facility] Comment on above: Result Comment: NEW REFERENCE [...] neoplasms. Performed By: #### 2 0415-6 #### [facility] ([id number]) [address] [place] [address], [address] [place] [address] CBC AND AUTO DIFFon 07-30-19 ABSOLUTE BASOPHIL 0.0 X10E9/L Normal 0.0-0.2 [facility] Comment on above: Performed By: #### C NIKA JAEGER, #### [facility] ([id number]) [address] [place] [address] 80995 ABSOLUTE NEUTROPHIL 6.4 X10E9/L Normal 1.5-6.6 [facility] Comment on above: Performed By: #### Manish JAEGER CMP, #### [facility] ([id number]) [address] [place] [address] 24611 Basophils/100 WBC (Bld) 0.5 % Normal [facility] Comment on above: Performed By: #### C MIL [facility], #### [facility] ([id number]) [address] [place] [address] 66503 Eosinophils (Bld) [#/Vol] 0.0 10*3/uL Normal 0.0-0.4 [facility] Comment on above: Performed By: #### C NIKA JAEGER, #### [facility] ([id number]) [address] [place] [address] 35044 Eosinophils/100 WBC (Bld) 0.2 % Normal [facility] Comment on above: Performed By: #### Manish JAEGER CMP, #### [facility] ([id number]) [address] [place] [address] 99900 Erythrocyte distribution width (RBC) [Ratio] 14.2 % Normal 11.5-15.0 [facility] Comment on above: Performed By: #### C NIKA JAEGER, #### [facility] ([id number]) [address] [place] [address] 79418 Hematocrit (Bld) [Volume fraction] 43.4 % Normal 35-47 [facility] Comment on above: Performed By: #### Manish JAEGER CMP, #### [facility] ([id number]) [address] [place] [address] 51390 Hemoglobin (Bld) [Mass/Vol] 14.9 g/dL Normal 11.7-15.5 [facility] Comment on above: Performed By: #### Manish JAEGER CMP, #### [facility] ([id number]) [address] [place] [address] 14176 Lymphocytes (Bld) [#/Vol] 1.4 10*3/uL Normal 1.0-3.5 [facility] Comment on above: Performed By: #### Manish JAEGER CMP, #### [facility] ([id number]) [address] [place] [address] 45071 Lymphocytes/100 WBC (Bld) 16.3 % Normal [facility] Comment on above: Performed By: #### Manish JAEGER CMP, #### [facility] ([id number]) [address] [place] [address] 48204 MCH (RBC) [Entitic mass] 30.9 pg Normal 27-34 [facility] Comment on above: Performed By: #### Manish JAEGER CMP, #### [facility] ([id number]) [address] [place] [address] 35601 MCHC (RBC) [Mass/Vol] 34.4 g/dL Normal 32-36 [facility] Comment on above: Performed By: #### Manish JAEGER CMP, #### [facility] ([id number]) [address] [place] [address] 93248 MCV (RBC) [Entitic vol] 90 fL Normal 80-100 [facility] Comment on above: Performed By: #### Manish JAEGER CMP, #### [facility] ([id number]) [address] [place] [address] 66294 Monocytes (Bld) [#/Vol] 0.7 10*3/uL Normal 0-0.9 [facility] Comment on above: Performed By: #### Manish JAEGER CMP, #### [facility] ([id number]) [address] [place] [address] 58025 Monocytes/100 WBC (Bld) 7.8 % Normal [facility] Comment on above: Performed By: #### Manish JAEGER [facility], #### [facility] ([id number]) [address] [place] [address] 54041 Neutrophils/100 WBC (Bld) 75.2 % Normal [facility] Comment on above: Performed By: #### Manish JAEGER CMP, #### [facility] ([id number]) [address] [place] [address] 13220 Platelet mean volume (Bld) [Entitic vol] 8.5 fL Normal 7-12 [facility] Comment on above: Performed By: #### Manish JAEGER CMP, #### [facility] ([id number]) [address] [place] [address] 68887 Platelets (Bld) [#/Vol] 188 10*3/uL Normal 150-450 [facility] Comment on above: Performed By: #### Manish JAEGER CMP, #### [facility] ([id number]) [address] [place] [address] 79866 RBC COUNT 4.83 X10E12/L Normal 3.80-5.20 [facility] Comment on above: Performed By: #### C BCA, CMP, #### [facility] ([id number]) [address] [place] [address] 14936 WBC (Bld) [#/Vol] 8.5 10*3/uL Normal 4.0-11.0 [facility] Comment on above: Performed By: #### C BCA, CMP, #### [facility] ([id number]) [address] [place] [address] 07228 COMPREHENSIVE METABOLIC PANE Thomas 07-30-2023 Albumin [Mass/Vol] 4.7 g/dL Normal 3.2-5.3 [facility] Comment on above: Performed By: #### C MIL, CMP, #### [facility] ([id number]) [address] [place] [address] 80013 ALP [Catalytic activity/Vol] 57 U/L Normal 39-130 [facility] Comment on above: Performed By: #### C BCA, CMP, #### [facility] ([id number]) [address] [place] [address] 96671 ALT [Catalytic activity/Vol] 12 U/L Normal 0-31 [facility] Comment on above: Performed By: #### C BCA, CMP, #### [facility] ([id number]) [address] [place] [address] 41131 Anion gap [Moles/Vol] 6 mmol/L Normal 5-15 [facility] Comment on above: Performed By: #### C BCA, CMP, [id number] #### [facility] ([id number]) [address] [place] [address] 43744 AST [Catalytic activity/Vol] 18 U/L Normal 0-41 [facility] Comment on above: Performed By: #### C NIKA JAEGER, #### [facility] ([id number]) [address] [place] [address] 17035 Bilirubin [Mass/Vol] 0.8 mg/dL Normal 0.3-1.2 [facility] Comment on above: Performed By: #### Manish JAEGER CMP, #### [facility] ([id number]) [address] [place] [address] 49063 Calcium [Mass/Vol] 9.4 mg/dL Normal 8.5-10.5 [facility] Comment on above: Performed By: #### Manish JAEGER CMP, #### [facility] ([id number]) [address] [place] [address] 88285 Chloride [Moles/Vol] 107 mmol/L Normal 98-109 [facility] Comment on above: Performed By: #### Manish JAEGER CMP, #### [facility] ([id number]) [address] [place] [address] 68036 CO2 [Moles/Vol] 23 mmol/L Normal 22-32 [facility] Comment on above: Performed By: #### Manish JAEGER CMP, #### [facility] ([id number]) [address] [place] [address] 56377 Creatinine [Mass/Vol] 0.63 mg/dL Normal 0.40-1.00 [facility] Comment on above: Result Comment: METH OD TRACEABLE TO IDMS STANDARD Performed By: #### Manish JAEGER CMP, #### [facility] ([id number]) [address] [place] [address] 49907 eGFR (CKD-EPI) NON-RACE DEPENDENT >90 Normal >59 [facility] Comment on above: Result Comment: Reported eGFR is based on the CKD-EPI 2020 equation that does not use a race coefficient. Performed By: #### C BCA, CMP, #### [facility] ([id number]) [address] [place] [address] 48509 Glucose [Mass/Vol] 92 mg/dL Normal 65-99 [facility] Comment on above: Performed By: #### C MIL CMP, #### [facility] ([id number]) [address] [place] [address] 12518 Potassium [Moles/Vol] 3.5 mmol/L Normal 3.5-5.0 [facility] Comment on above: Performed By: #### C MIL [facility], #### [facility] ([id number]) [address] [place] [address] 57337 Protein [Mass/Vol] 7.8 g/dL Normal 6.0-8.0 [facility] Comment on above: Performed By: #### C MIL, [facility], #### [facility] ([id number]) [address] [place] [address] 87594 Sodium [Moles/Vol] 136 mmol/L Normal 134-146 [facility] Comment on above: Performed By: #### C BCA, [facility], #### [facility] ([id number]) [address] [place] [address] 40359 Urea nitrogen [Mass/Vol] 12 mg/dL Normal 5-23 [facility] Comment on above: Performed By: #### C BCA, CMP, #### [facility] ([id number]) [address] [place] [address] 92595 HCG.beta subunit IA 3rd IS Q non 07-30-2023 [place] [address] m[IU]/mL Normal P [facility] Comment on above: Result Comment: NEW [...] or nontrophoblastic neoplasms. Performed By: #### C MIL, [facility], 93480-9 #### [facility] ([id number]) [address] [place] [address], [place] [address] US PREG LESS THAN 14 WKS WIT [...] Rodrigues MD on 07/30/2023 2:51 PM Normal [facility] US ABDOMEN LIMITEDon 024 US ABDOMEN LIMITED EXAMINATION: LIMITED ABDOMINAL ULTRASOUND 05/29/2023 9:27 am COMPARISON: None. HISTORY: ORDERING SYSTEM PROVIDED HISTORY: Abdominal mass, right lower quadrant TECHNOLOGIST PROVIDED HISTORY: This procedure can be scheduled via [employer]. Access your [employer] account by visiting [employer]. RUQ lump with straining or sitting up. [...] Zay Boyce MD 05/29/23 Final result Normal [facility] CBC WITH DIFFon 02-24-2023 ABS BASOPHIL 0.04 x10^3ul Normal (0.00 - 0.16) [facility] Comment on above: Order Comment: FACIL ITY: [facility] [id number] Performed By: #### C BC/D, CHEM-C, TSHT34, B12+, MG #### [facility] [address] [facility], [id number] ABS EOSINOPHIL 0.08 x10^3ul Normal (0.00 - 0.40) [facility] Comment on above: Order Comment: FACIL ITY: [facility] [id number] Performed By: #### C BC/D, CHEM-C, TSHT34, B12+, MG #### [facility] [address] [facility], [address] ABS IMMATURE GRANS 0.01 x10^3ul Normal (0.00 - 0.11) [facility] Comment on above: Order Comment: FACIL ITY: [facility] [id number] Performed By: #### C BC/D, CHEM-C, TSHT34, B12+, MG #### [facility] [address] [facility], [address] ABS LYMPHOCYTE 2.28 x10^3ul Normal (0.96 - 5.40) [facility] Comment on above: Order Comment: FACIL ITY: [facility] [id number] Performed By: #### C BC/D, CHEM-C, TSHT34, B12+, MG #### [facility] [address] [place], [address] ABS MONOCYTE 0.70 x10^3ul Normal (0.10 - 1.00) [facility] Comment on above: Order Comment: FACIL ITY: [facility] [id number] Performed By: #### C BC/D, CHEM-C, TSHT34, B12+, MG #### [facility] [address] [place], [address] ABS NEUTROPHIL 3.91 x10^3ul Normal (1.50 - 7.00) [facility] Comment on above: Order Comment: FACIL ITY: [facility] [id number] Performed By: #### C BC/D, CHEM-C, TSHT34, B12+, MG #### [facility] [address] [place], [address] Basophils/100 WBC (Bld) 0.6 % Normal () [facility] Comment on above: Order Comment: FACIL ITY: [facility] [id number] Performed By: #### C BC/D, CHEM-C, TSHT34, B12+, MG #### [facility] [address] [place], [address] Eosinophils/100 WBC (Bld) 1.1 % Normal () [facility] Comment on above: Order Comment: FACIL ITY: [facility] [id number] Performed By: #### C BC/D, CHEM-C, TSHT34, B12+, MG #### [facility] [address] [place], [address] Hematocrit (Bld) [Volume fraction] 46.1 % Normal (37.0 - 47.0) [facility] Comment on above: Order Comment: FACIL ITY: [facility] [id number] Performed By: #### C BC/D, CHEM-C, TSHT34, B12+, MG #### [facility] [address] [place], [address] Hemoglobin (Bld) [Mass/Vol] 15.3 g/dL Normal (12.0 - 16.0) [facility] Comment on above: Order Comment: FACIL ITY: [facility] [id number] Performed By: #### C BC/D, CHEM-C, TSHT34, B12+, MG #### [facility] [address] [place], [address] IMMATURE GRANS (IG) 0.1 % Normal () [facility] Comment on above: Order Comment: FACIL ITY: [facility] [id number] Performed By: #### C BC/D, CHEM-C, TSHT34, B12+, MG #### [facility] [address] [place], [address] LYMPS 32.5 % Normal () [facility] Comment on above: Order Comment: FACIL ITY: [facility] [id number] Performed By: #### C BC/D, CHEM-C, TSHT34, B12+, MG #### [facility] [address] [place], [address] MCH (RBC) [Entitic mass] 30.5 pg Normal (27 .0 - 33.0) [facility] Comment on above: Order Comment: FACIL ITY: [facility] [id number] Performed By: #### C BC/D, CHEM-C, TSHT34, B12+, MG #### [facility] [address] [place], [address] MCHC (RBC) [Mass/Vol] 33.2 g/dL Normal (30.0 - 37.0) [facility] Comment on above: Order Comment: FACIL ITY: [facility] [id number] Performed By: #### C BC/D, CHEM-C, TSHT34, B12+, MG #### [facility] [address] [place], [address] MCV (RBC) [Entitic vol] 92.0 fL Normal (81. 0 - 99.0) [facility] Comment on above: Order Comment: FACIL ITY: [facility] [id number] Performed By: #### C BC/D, CHEM-C, TSHT34, B12+, MG #### [facility] [address] [place], [address] MONOS 10.0 % Normal () [facility] Comment on above: Order Comment: FACIL ITY: [facility] [id number] Performed By: #### C BC/D, CHEM-C, TSHT34, B12+, MG #### [facility] [address] [place], [address] PLT 201 x10^3ul Normal (130 - 400) [facility] Comment on above: Order Comment: FACIL ITY: [facility] [id number] Performed By: #### C BC/D, CHEM-C, TSHT34, B12+, MG #### [facility] [address] [place], [address] RBC 5.01 x10^6ul Normal (4.20 - 5.40) [facility] Comment on above: Order Comment: FACIL ITY: [facility] [id number] Performed By: #### C BC/D, CHEM-C, TSHT34, B12+, MG #### [facility] [address] [place], [address] RDW-SD 46.7 fl Normal (37.0 - 49.0) [facility] Comment on above: Order Comment: FACIL ITY: [facility] [id number] Performed By: #### C BC/D, CHEM-C, TSHT34, B12+, MG #### [facility] [address] [place], [address] SEGS 55.7 % Normal () [facility] Comment on above: Order Comment: FACIL ITY: [facility] [id number] Performed By: #### C BC/D, CHEM-C, TSHT34, B12+, MG #### [facility] [address] [place], [address] WBC 7.02 x10^3ul Normal (3.80 - 10.60) [facility] Comment on above: Order Comment: FACIL ITY: [facility] [id number] Performed By: #### C BC/D, CHEM-C, TSHT34, B12+, MG #### [facility] [address] [place], [address] COMP METABOLIC PANEL W/GFRon 02-24-2023 Albumin [Mass/Vol] 4.8 g/dL Normal (3.5 - 5.0) [facility] Comment on above: Performed By: #### C BC/D, CHEM-C, TSHT34, B12+, MG #### [facility] [address] [place], [address] ALK PHOS 63 U/L Normal (38 - 126) [facility] Comment on above: Performed By: #### C BC/D, CHEM-C, TSHT34, B12+, MG #### [facility] [address] [place], [address] ALT [Catalytic activity/Vol] 18 U/L Normal (1 - 35) [facility] Comment on above: Performed By: #### C BC/D, CHEM-C, TSHT34, B12+, MG #### [facility] [address] [place], [address] AST [Catalytic activity/Vol] 22 U/L Normal (15 - 46) [facility] Comment on above: Performed By: #### C BC/D, CHEM-C, TSHT34, B12+, MG #### [facility] [address] [place], [address] Bilirubin [Mass/Vol] 1.0 mg/dL Normal (0.2 - 1.3) [facility] Comment on above: Performed By: #### C BC/D, CHEM-C, TSHT34, B12+, MG #### [facility] [address] [place], [address] Calcium [Mass/Vol] 9.6 mg/dL Normal (8.6 - 10.6) [facility] Comment on above: Performed By: #### C BC/D, CHEM-C, TSHT34, B12+, MG #### [facility] [address] [place], [address] Chloride [Moles/Vol] 105 mmol/L Normal (98 - 107) [facility] Comment on above: Performed By: #### C BC/D, CHEM-C, TSHT34, B12+, MG #### [facility] [address] [place], [address] CO2 [Moles/Vol] 24 mmol/L Normal (22 - 30) [facility] Comment on above: Performed By: #### C BC/D, CHEM-C, TSHT34, B12+, MG #### [facility] [address] [place], [address] Creatinine [Mass/Vol] 0.67 mg/dL Normal (0.52 - 1.04) [facility] Comment on above: Performed By: #### C BC/D, CHEM-C, TSHT34, B12+, MG #### [facility] [address] [place], [address] GFR- AMER 132.0 ML/M1.7 Normal (60.0 - 140.1) [facility] Comment on above: Performed By: #### C BC/D, CHEM-C, TSHT34, B12+, MG #### [facility] [address] [place], [address] GFR-NON AFRIC-AMER 109.1 ML/M1.7 Normal (60.0 - 115.8) [facility] Comment on above: Performed By: #### C BC/D, CHEM-C, TSHT34, B12+, MG #### [facility] [address] [place], [address] Glucose [Mass/Vol] 76 mg/dL Normal (74 - 106) [facility] Comment on above: Performed By: #### C BC/D, CHEM-C, TSHT34, B12+, MG #### [facility] [address] [place], [address] Potassium [Moles/Vol] 4.0 mmol/L Normal (3.5 - 5.1) [facility] Comment on above: Performed By: #### C BC/D, CHEM-C, TSHT34, B12+, MG #### [facility] [address] [place], [address] Protein [Mass/Vol] 7.5 g/dL Normal (6.3 - 8.2) [facility] Comment on above: Performed By: #### C BC/D, CHEM-C, TSHT34, B12+, MG #### [facility] [address] [place], [address] Sodium [Moles/Vol] 143 mmol/L Normal (137 - 145) [facility] Comment on above: Performed By: #### C BC/D, CHEM-C, TSHT34, B12+, MG #### [facility] [address] [place], [address] Urea nitrogen [Mass/Vol] 12 mg/dL Normal (7 - 17) [facility] Comment on above: Performed By: #### C BC/D, CHEM-C, TSHT34, B12+, MG #### [facility] [address] [place], [address] MAGNESIUMon 02-24-2023 Magnesium [Mass/Vol] 1.8 mg/dL Normal (1.6 - 2.3) [facility] Comment on above: Performed By: #### C BC/D, CHEM-C, TSHT34, B12+, MG #### [facility] [address] [place], [place] [address] [place], [address] T3 FREE, T4 FREE AND TSHon 1 Free T3 [Mass/Vol] 5.32 pg/mL Normal (2.32 - 6.09) [facility] Comment on above: Performed By: #### C BC/D, CHEM-C, TSHT34, B12+, MG #### [facility] [place], [address] Free T4 [Mass/Vol] 1.45 ng/dL Normal (0.78 - 2.35) [facility] Comment on above: Performed By: #### C BC/D, CHEM-C, TSHT34, B12+, MG #### [facility] [place], [address] TSH Qn 1.43 m[IU]/L Normal (0.470 - 4.680) [facility] Comment on above: Performed By: #### C BC/D, CHEM-C, TSHT34, B12+, MG #### [facility] [address] [place], [address] VIT B12 AND FOLATEon 023 Cobalamin (Vitamin B12) [Mass/Vol] 653 pg/mL Normal (239 - 931) [facility] Comment on above: Performed By: #### C BC/D, CHEM-C, TSHT34, B12+, MG #### [facility] [address] [facility], [address] FOLIC ACID >20.0 High (2.8 - 20.0) [facility] Comment on above: Performed By: #### C BC/D, CHEM-C, TSHT34, B12+, MG #### [facility] [address] [facility], [address] HCG, ,Urineon 11-14 Beta HCG ( test) Ql (U) Negative Normal NEG [place] Comment on above: Performed By: #### U HCG #### [facility] [address] [place] [address] Blood Bank Coordinator: Natasha Bragg MD Surgical Pathologyon 023 Surgical Pathology (NOTE) Path Number: [id number] -- Diagnosis -- TERMINAL ILEUM, BIOPSY: -UNREMARKABLE [...] Microscopic Description Microscopic examination performed. [place] [facility] [place] [address] [place] [id number] Interpretation Performed at [place] [id number] [place] [address] SURGICAL PATHOLOGY CONSULTATION Patient Name: MEGAN COLLADO Keri [facility] Rec: [id number] [facility] [employer] [facility] ANATOMIC PATHOLOGY [address] [facility] [place], [place] [address] Normal [place] Comment on above: Performed By: #### P PPVS #### [facility] [address] [place] [address] [id number] Blood Bank Coordinator: Alex Deleon MD Calprotectin, Fecalon 2022 Calprotectin, Fecal 7 ug/g Normal <=49 [place] Comment on above: Result Comment: (NOT E) REFERENCE INTERVAL: Calprotectin, Fecal by Immunoassay Less than 50 ug/g.........Normal 50-120 ug/g...............Borderline elevated, test should be re-evaluated in 4-6 weeks. 121 ug/g or greater.......Elevated Performed By: [employer] [address] [place] [address] Drupal Architect: Louie Kidd MD, PhD Performed By: #### A CALPF #### [address] [id number] Blood Bank Coordinator: Jesu Farley MD Celiac Disease Panelon 10-24 Gliadin Deam Pep IgA 0.5 U/mL Normal <7.0 [facility] Comment on above: Result Comment: CELIAC INTERPRETATION <7.0 Negative 7.0-10.0 Equivocal >10.0 Positive units: U/mL Performed By: #### C ELP #### [facility] [address] [place] [address] [id number] Blood Bank Coordinator: Alex Deleon MD Gliadin Deam Pep IgG <0.4 Normal <7.0 [facility] Comment on above: Result Comment: CELIAC INTERPRETATION <7.0 Negative 7.0-10.0 Equivocal >10.0 Positive units: U/mL Performed By: #### C ELP #### [employer] [address] [place] [address] Blood Bank Coordinator: Alex Deleon MD Tiss Transglutam IgA <0.1 Normal <7.0 [facility] Comment on above: Result Comment: CELIAC INTERPRETATION <7.0 Negative 7.0-10.0 Equivocal >10.0 Positive units: U/mL Performed By: #### C ELP #### [facility] [address] [place] [address] Blood Bank Coordinator: Alex Deleon MD IgA [Mass/Vol] 132 mg/dL Normal 70-400 [facility] Comment on above: Performed By: #### C ELP #### [facility] [address] [place] [address] Blood Bank Coordinator: Alex Deleon MD AEROBIC CULTURE AND SENSITIV ITYon 10-07-2022 AMPICILLIN N/A Normal () [facility] Comment on above: Order Comment: FACIL ITY: [facility] [id number] Performed By: #### C -M75 #### [facility] [address] [place], [address] CEFOXITIN SCREEN Negative Normal () [facility] Comment on above: Order Comment: FACIL ITY: [facility] [id number] Performed By: #### C -M75 #### [facility] [address] [place], [address] CIPROFLOXACIN S Normal () [place] [facility] Comment on above: Order Comment: FACIL ITY: [facility] [id number] Performed By: #### C -[id number] #### [place] [facility] [address] [place], [address] CLINDAMYCIN S Normal () [facility] on [facility]: Order Comment: FACIL ITY: [facility] [id number] Performed By: #### C -[id number] #### [place] [facility] [address] [place], [address] CULTURE, AEROBIC SENS Normal (SEE - REPOR) [facility] Comment on above: Order Comment: FACIL ITY: [facility] [id number] Performed By: #### C -[id number] #### [facility] [address] [place], [address] DAPTOMYCIN S Normal () [facility] Comment on above: Order Comment: FACIL ITY: [facility] [id number] Performed By: #### C -M75 #### [facility] [address] [facility], [address] DOXYCYCLINE I Normal () [facility] Comment on above: Order Comment: FACIL ITY: [facility] [id number] Performed By: #### C -M75 #### [facility] [address] [facility], [address] ERYTHROMYCIN R High () [facility] Comment on above: Order Comment: FACIL ITY: [facility] [id number] Performed By: #### C -M75 #### [facility] [address] [facility], [address] GENTAMICIN S Normal () [facility] Comment on above: Order Comment: FACIL ITY: [facility] [id number] Performed By: #### C -M75 #### [facility] [address] [facility], [address] GENTAMICIN HIGH LEVEL N/A Normal () [facility] Comment on above: Order Comment: FACIL ITY: [facility] [id number] Performed By: #### C -M75 #### [facility] [address] [facility], [address] INDUCIBLE CLINDAMYCIN RESISTANCE Negative Normal () [facility] Comment on above: Order Comment: FACIL ITY: [facility] [id number] Performed By: #### C -M75 #### [facility] [address] [facility], [address] LEVOFLOXACIN S Normal () [facility] Comment on above: Order Comment: FACIL ITY: [facility] [id number] Performed By: #### C -M75 #### [facility] [address] [place], [address] LINEZOLID S Normal () [facility] Comment on above: Order Comment: FACIL ITY: [facility] [id number] Performed By: #### C -M75 #### [facility] [address] [place], [address] MOXIFLOXACIN S Normal () [facility] Comment on above: Order Comment: FACIL ITY: [facility] [id number] Performed By: #### C -M75 #### [facility] [address] [place], [address] NITROFURANTOIN S Normal () [facility] Comment on above: Order Comment: [facility] [id number] Performed By: #### C -M75 #### [facility] [address] [place], [address] OXACILLIN S Normal () [facility] Comment on above: Order Comment: [facility] [id number] Performed By: #### C -M75 #### [facility] [address] [place], [address] REPORT STATUS FINAL Normal () [facility] Comment on above: Order Comment: [facility] [id number] Result Comment: SOUR CE: NO SOURCE INDICATED GROWTH: FEW ISOLATE: STAPHYLOCOCCUS EPIDERMIDIS SENSITIVITY INTERPRETATION S = SUSCEPTIBLE R = RESISTANT I = INTERMEDIATE N/A = NOT APPLICABLE Performed By: #### C -M75 #### [facility] [address] [place], [address] RIFAMPICIN S Normal () [facility] Comment on above: Order Comment: FACIL ITY: [facility] [id number] Performed By: #### C -M75 #### [facility] [address] [place], [address] STREPTOMYCIN HIGH LEVEL N/A Normal () [facility] Comment on above: Order Comment: FACIL ITY: [facility] [id number] Performed By: #### C -M75 #### [facility] [address] [facility], [address] TETRACYCLINE R High () [facility] Comment on above: Order Comment: FACIL ITY: [facility] [id number] Performed By: #### C -M75 #### [facility] [address] [facility], [address] TIGECYCLINE S Normal () [facility] Comment on above: Order Comment: [facility] [id number] Performed By: #### C -M75 #### [facility] [address] [facility], [address] TRIMETH/SULFA S Normal () [facility] Comment on above: Order Comment: [facility] [id number] Performed By: #### C -M75 #### [facility] [address] [facility], [address] VANCOMYCIN S Normal () [facility] Comment on above: Order Comment: [facility] [id number] Performed By: #### C -M75 #### [facility] [address] [facility], [address] BNPon 08-07-2022 Natriuretic peptide B (Bld) [Mass/Vol] 23.0 pg/mL Normal <=450.0 [facility] Comment on above: Performed By: #### H STROPN, BNP, BMP #### [facility] [address] [place] [address] Dr. Anette Siddiqui CBC AUTO DIFFon 08-07-2022 BASO # 0.0 103/ul Normal 0.0-0.1 [facility] Comment on above: Performed By: #### C BC #### [facility] [address] [address] [address] Anette Siddiqui Basophils/100 WBC (Bld) 0.4 % Normal 0.2-2.0 [facility] Comment on above: Performed By: #### C BC #### [facility] [address] [address] [address] Anette Siddiqui EO # 0.1 103/ul Normal 0.0-0.7 [facility] Comment on above: Performed By: #### C BC #### [facility] [address] [place] [address] Dr. Anette Siddiqui Eosinophils/100 WBC (Bld) 1.0 % Normal 0.9-7.0 [facility] Comment on above: Performed By: #### C BC #### [facility] [address] [place] [address] Dr. Anette Siddiqui Erythrocyte distribution width (RBC) [Ratio] 13.3 % Normal 11.0-15.0 [facility] Comment on above: Performed By: #### C BC #### [facility] [address] [place] [address] Dr. Anette Siddiqui Hematocrit (Bld) [Volume fraction] 42.2 % Normal 36.0-48.0 [facility] Comment on above: Performed By: #### C BC #### [facility] [address] [place] [address] Dr. Anette Siddiqui Hemoglobin (Bld) [Mass/Vol] 14.2 g/dL Normal 12.0-16.0 [facility] Comment on above: Performed By: #### C BC #### [facility] [address] [place] [address] Dr. Anette Siddiqui IG # 0.02 10e3/ul Normal 0.00-0.03 [facility] Comment on above: Performed By: #### C BC #### [facility] [address] [place] [address] Dr. Anette Siddiqui IG % 0.3 % Normal 0.0-0.5 [facility] Comment on above: Performed By: #### C BC #### [facility] [address] [place] [address] Dr. Anette Siddiqui LYMPH # 1.9 103/ul Normal 1.2-3.8 [facility] Comment on above: Performed By: #### C BC #### [facility] [address] [place] [address] Dr. Anette Siddiqui Lymphocytes/100 WBC (Bld) 24.8 % Normal 20.5-60.0 [facility] Comment on above: Performed By: #### C BC #### [facility] [address] [place] [address] Dr. Anette Siddiqui MANUAL DIFF REQ NO Normal [facility] Comment on above: Performed By: #### C BC #### [facility] [address] [place] [address] Dr. Anette Siddiqui MCH (RBC) [Entitic mass] 30.5 pg Normal 26.7-34.0 [facility] Comment on above: Performed By: #### C BC #### [facility] [address] [place] [address] Dr. Anette Siddiqui MCHC (RBC) [Mass/Vol] 33.6 g/dL Normal 29.9-35.2 [facility] Comment on above: Performed By: #### C BC #### [facility] [address] [place] [address] Dr. Anette Siddiqui MCV (RBC) [Entitic vol] 90.8 fL Normal 81.0-99.0 [facility] Comment on above: Performed By: #### C BC #### [facility] [address] [place] [address] Dr. Anette Siddiqui MONO # 0.6 103/ul Normal 0.3-0.8 [facility] Comment on above: Performed By: #### C BC #### [facility] [address] [place] [address] Dr. Anette Siddiqui Monocytes/100 WBC (Bld) 7.7 % Normal 1.7-12.0 [facility] Comment on above: Performed By: #### C BC #### [facility] [address] [place] [address] Dr. Anette Siddiqui NEUT # 5.0 103/ul Normal 1.4-6.5 [facility] Comment on above: Performed By: #### C BC #### [facility] [address] [place] [address] Dr. Anette Siddiqui Neutrophils/100 WBC (Bld) 65.8 % Normal 43.0-75.0 [facility] Comment on above: Performed By: #### C BC #### [facility] [address] [place] [address] Dr. Anette Siddiqui Platelet mean volume (Bld) [Entitic vol] 10.3 fL Normal 9.5-13.5 [facility] Comment on above: Performed By: #### C BC #### [facility] [address] [place] [address] Dr. Anette Siddiqui PLT 186 103/ul Normal 150-[address] [facility] Comment on above: Performed By: #### C BC #### [facility] [address] [place] [address] Dr. Anette Siddiqui RBC 4.65 106/ul Normal 4.20-5.40 [facility] Comment on above: Performed By: #### C BC #### [facility] [address] [place] [address] Dr. Anette Siddiqui WBC 7.6 103/ul Normal 4.0-11.0 [facility] Comment on above: Performed By: #### C BC #### [facility] [address] [place] [address] Dr. Anette Siddiqui PREG HCG QUALon 08-07-2022 , QUAL Negative Normal NEGATIVE [facility] Comment on above: Performed By: #### P TT, PT #### [facility] [address] [place] [address] Dr. Anette Siddiqui PROF CHEM 8 (BAS METB)on Anion gap [Moles/Vol] 14.8 mmol/L Normal [facility] Comment on above: Performed By: #### H STROPN, BNP, BMP #### [facility] [address] [address] [address] Anette Siddiqui Calcium [Mass/Vol] 8.8 mg/dL Normal 8.5-10.1 [facility] Comment on above: Performed By: #### H STROPN, BNP, BMP #### [facility] [address] [address] [address] Anette Siddiqui Chloride [Moles/Vol] 105 mmol/L Normal 98-[address] [facility] Comment on above: Performed By: #### H STROPN, BNP, BMP #### [facility] [address] [address] [address] Anette Siddiqui CO2 [Moles/Vol] 24.0 mmol/L Normal 21.0-32.0 [facility] Comment on above: Performed By: #### H STROPN, BNP, BMP #### [facility] [address] [place] [address] Dr. Anette Siddiqui Creatinine [Mass/Vol] 0.71 mg/dL Normal 0.55-1.02 [facility] Comment on above: Performed By: #### H STROPN, BNP, BMP #### [facility] [address] [address] [address] Anette Siddiqui EGFR-AF [place]IZ[place] >60 Normal >=60 [facility] Comment on above: Performed By: #### H STROPN, BNP, BMP #### [facility] [address] [address] [address] Anette Siddiqui EGFR-NON AF CITIZEN [place] >60 Normal >=[address] [facility] Comment on above: Performed By: #### H STROPN, BNP, BMP #### [facility] [address] [address] [address] Anette Siddiqui Glucose [Mass/Vol] 99 mg/dL Normal 74-106 [facility] Comment on above: Performed By: #### H STROPN, BNP, BMP #### [facility] [address] [address] [address] Anette Siddiqui Potassium [Moles/Vol] 3.8 mmol/L Normal 3.5-5.[address] [facility] Comment on above: Performed By: #### H STROPN, BNP, BMP #### [facility] [address] [address] [address] Anette Siddiqui Sodium [Moles/Vol] 140 mmol/L Normal 136-145 [facility] Comment on above: Performed By: #### H STROPN, BNP, BMP #### [facility] [address] [address] [address] Anette Siddiqui Urea nitrogen [Mass/Vol] 15.0 mg/dL Normal 7.0-18.0 [facility] Comment on above: Performed By: #### H STROPN, BNP, BMP #### [facility] [address] [address] [address] Anette Siddiqui Urea nitrogen/Creatinine [Mass ratio] 21.1 mg/mg Normal [facility] Comment on above: Performed By: #### H STROPN, BNP, BMP #### [facility] [address] [address] [address] Anette Siddiqui TROPONIN, HIGH SENSITIVITYon 08-07-2022 HSTROP <4.0 Normal 4.0-51.3 [facility] Comment on above: Result Comment: CUT- OFF POINTS HAVE BEEN ESTABLISHED BASED ON THE FOURTH UNIVERSAL DEFINITIONS OF MYOCARDIAL INFARCTION. THE UPPER REFERENCE LIMIT (URL) OF TROPONIN, DEFINED THE 99TH PERCENTILE OF cTnI DISTRIBUTION IN A REFERENCE POPULATION, HAS BEEN CONFIRMED THE DECISION THRESHOLD FOR [place] DIAGNOSIS. Performed By: #### H STROPN, BNP, BMP #### [facility] [address] [place] [address] Dr. Anette Siddiqui XR CHEST 1 Von [...] by: HUGO OWENS Date: 2022-08-07 15:54 Normal [facility] CBC AUTO DIFFon 02-14-2022 BASO # 0.0 103/ul Normal 0.0-0.1 [facility] Comment on above: Performed By: #### C BC #### [facility] [address] [address] [address] Anette Siddiqui Basophils/100 WBC (Bld) 0.5 % Normal 0.2-2.0 [facility] Comment on above: Performed By: #### C BC #### [facility] [address] [address] [address] Anette Siddiqui EO # 0.1 103/ul Normal 0.0-0.7 [facility] Comment on above: Performed By: #### C BC #### [facility] [address] [place] [address] Dr. Anette Siddiqui Eosinophils/100 WBC (Bld) 1.0 % Normal 0.9-7.0 [facility] Comment on above: Performed By: #### C BC #### [facility] [address] [place] [address] Dr. Anette Siddiqui Erythrocyte distribution width (RBC) [Ratio] 12.9 % Normal 11.0-15.0 [facility] Comment on above: Performed By: #### C BC #### [facility] [address] [place] [address] Dr. Anette Siddiqui Hematocrit (Bld) [Volume fraction] 43.2 % Normal 36.0-48.0 [facility] Comment on above: Performed By: #### C BC #### [facility] [address] [place] [address] Dr. Anette Siddiqui Hemoglobin (Bld) [Mass/Vol] 14.4 g/dL Normal 12.0-16.0 [facility] Comment on above: Performed By: #### C BC #### [facility] [address] [place] [address] Dr. Anette Siddiqui IG # 0.01 10e3/ul Normal 0.00-0.03 [facility] Comment on above: Performed By: #### C BC #### [facility] [address] [place] [address] Dr. Anette Siddiqui IG % 0.2 % Normal 0.0-0.5 [facility] Comment on above: Performed By: #### C BC #### [facility] [address] [address] [address] Anette Siddiqui LYMPH # 1.7 103/ul Normal 1.2-3.8 [facility] Comment on above: Performed By: #### C BC #### [facility] [address] [place] [address] Dr. Anette Siddiqui Lymphocytes/100 WBC (Bld) 29.8 % Normal 20.5-60.0 [facility] Comment on above: Performed By: #### C BC #### [facility] [address] [place] [address] Dr. Anette Siddiqui MANUAL DIFF REQ NO Normal [facility] Comment on above: Performed By: #### C BC #### [facility] [address] [place] [address] Dr. Anette Siddiqui MCH (RBC) [Entitic mass] 30.4 pg Normal 26.7-34.0 [facility] Comment on above: Performed By: #### C BC #### [facility] [address] [place] [address] Dr. Anette Siddiqui MCHC (RBC) [Mass/Vol] 33.3 g/dL Normal 29.9-35.2 [facility] Comment on above: Performed By: #### C BC #### [facility] [address] [place] [address] Dr. Anette Siddiqui MCV (RBC) [Entitic vol] 91.1 fL Normal 81.0-99.0 [facility] Comment on above: Performed By: #### C BC #### [facility] [address] [place] [address] Dr. Anette Siddiqui MONO # 0.5 103/ul Normal 0.3-0.8 [facility] Comment on above: Performed By: #### C BC #### [facility] [address] [place] [address] Dr. Anette Siddiqui Monocytes/100 WBC (Bld) 9.1 % Normal 1.7-12.0 [facility] Comment on above: Performed By: #### C BC #### [facility] [address] [place] [address] Dr. Anette Siddiqui NEUT # 3.5 103/ul Normal 1.4-6.[address] [facility] Comment on above: Performed By: #### C BC #### [facility] [address] [place] [address] Dr. Anette Siddiqui Neutrophils/100 WBC (Bld) 59.4 % Normal 43.0-75.[address] [facility] Comment on above: Performed By: #### C BC #### [facility] [address] [place] [address] Dr. Anette Siddiqui Platelet mean volume (Bld) [Entitic vol] 10.1 fL Normal 9.5-13.5 [facility] Comment on above: Performed By: #### C BC #### [facility] [address] [place] [address] Dr. Anette Siddiqui PLT 198 103/ul Normal 150-[address] [facility] Comment on above: Performed By: #### C BC #### [facility] [address] [place] [address] Dr. Anette Siddiqui RBC 4.74 106/ul Normal 4.20-5.[address] [facility] Comment on above: Performed By: #### C BC #### [facility] [address] [place] [address] Dr. Anette Siddiqui WBC 5.8 103/ul Normal 4.0-11.[address] [facility] Comment on above: Performed By: #### C BC #### [facility] [address] [place] [address] ABD/PELVIS WO CONon [...] AGUSTIN SWANN Date: 2022-02-14 13:11 Normal [facility] ER URINE PROFILEon 2 Bilirubin Ql (U) Negative Normal NEGATIVE [facility] Comment on above: Performed By: #### P TT, PT #### [facility] [address] [place] [address] Dr. Anette Siddiqui Clarity (U) CLEAR Normal CLEAR [facility] Comment on above: Performed By: #### P TT, PT #### [facility] [address] [place] [address] Dr. Anette Siddiqui Color (U) LT. YELLOW Normal YELLOW [facility] Comment on above: Performed By: #### P TT, PT #### [facility] [address] [place] [address] Dr. Anette Siddiqui ERULELE A micrscopic examination will be performed if indicated. Normal [facility] Comment on above: Performed By: #### P TT, PT #### [facility] [address] [place] [address] Dr. Anette Siddiqui Glucose Ql (U) Negative Normal NEGATIVE [facility] Comment on above: Performed By: #### P TT, PT #### [facility] [address] [place] [address] Dr. Anette Siddiqui Hemoglobin Ql (U) Negative Normal NEGATIVE [facility] Comment on above: Performed By: #### P TT, PT #### [facility] [address] [address] [address] Anette Siddiqui Ketones Ql (U) Negative Normal NEGATIVE [facility] Comment on above: Performed By: #### P TT, PT #### [facility] [address] [place] [address] Dr. Anette Siddiqui LEUKOCYTES Negative Normal NEGATIVE [facility] Comment on above: Performed By: #### P TT, PT #### [facility] [address] [address] [address] Anette Siddiqui Nitrite Ql (U) Negative Normal NEGATIVE [facility] Comment on above: Performed By: #### P TT, PT #### [facility] [address] [place] [address] Dr. Anette Siddiqui pH (U) 6.0 [pH] Normal 5-[address] [facility] Comment on above: Performed By: #### P TT, PT #### [facility] [address] [place] [address] Dr. Anette Siddiqui SPEC GRAVITY 1.015 Normal 1.005-<=1.02 5 [facility] Comment on above: Performed By: #### P TT, PT #### [facility] [address] [place] [address] Dr. Anette Siddiqui UA PROTEIN Negative Normal NEGATIVE/ TRACE [facility] Comment on above: Performed By: #### P TT, PT #### [facility] [address] [address] [address] Anette Siddiqui UR MICRO IND NOT INDICATED Normal [facility] Comment on above: Performed By: #### P TT, PT #### [facility] [address] [address] [address] Anette Siddiqui Urobilinogen Qn (U) 0.2 {Shaniqua'U}/dL Normal 0.2 - 1. 0 [facility] Comment on above: Performed By: #### P TT, PT #### [facility] [address] [place] [address] Dr. Anette Siddiqui URon 02-14-2022 , QUAL Negative Normal NEGATIVE [facility] Comment on above: Performed By: #### P TT, PT #### [facility] [address] [place] [address] Dr. Anette Siddiqui PROF 14(COMP METB)on 022 Albumin [Mass/Vol] 4.2 g/dL Normal 3.4-5.0 [facility] Comment on above: Performed By: #### C MP #### [facility] [address] [place] [address] Dr. Anette Siddiqui Albumin/Globulin [Mass ratio] 1.4 {ratio} Normal [facility] Comment on above: Performed By: #### C MP #### [facility] [address] [place] [address] Dr. Anette Siddiqui ALP [Catalytic activity/Vol] 105 U/L Normal 46-116 [facility] Comment on above: Performed By: #### C MP #### [facility] [facility] [address] [place] [address] Dr. Anette Siddiqui ALT [Catalytic activity/Vol] 31 U/L Normal 14-59 [facility] Comment on above: Performed By: #### C MP #### [facility] [address] [place] [address] Dr. Anette Siddiqui Anion gap [Moles/Vol] 11.9 mmol/L Normal [facility] Comment on above: Performed By: #### C MP #### [facility] [address] [place] [address] Dr. Anette Siddiqui AST [Catalytic activity/Vol] 17 U/L Normal 15-37 [facility] Comment on above: Performed By: #### C MP #### [facility] [address] [place] [address] Dr. Anette Siddiqui Bilirubin [Mass/Vol] 0.6 mg/dL Normal 0.2-1.0 [facility] Comment on above: Performed By: #### C MP #### [facility] [address] [place] [address] Dr. Anette Siddiqui Calcium [Mass/Vol] 9.2 mg/dL Normal 8.5-10.1 [facility] Comment on above: Performed By: #### C MP #### [facility] [address] [place] [address] Dr. Anette Siddiqui Chloride [Moles/Vol] 105 mmol/L Normal 98-107 [facility] Comment on above: Performed By: #### C MP #### [facility] [address] [place] [address] Dr. Anette Siddiqui CO2 [Moles/Vol] 27.8 mmol/L Normal 21.0-32.0 [facility] Comment on above: Performed By: #### C MP #### [facility] [address] [place] [address] Dr. Anette Siddiqui Creatinine [Mass/Vol] 0.74 mg/dL Normal 0.55-1.02 [facility] Comment on above: Performed By: #### C MP #### [facility] [address] [place] [address] Dr. Anette Siddiqui EGFR-AF CITIZEN OF [place] >60 Normal >=60 [facility] Comment on above: Performed By: #### C MP #### [facility] [address] [place] [address] Dr. Anette Siddiqui EGFR-NON AF CITIZEN OF [place] >60 Normal >=60 [facility] Comment on above: Performed By: #### C MP #### [facility] [address] [place] [address] Dr. Anette Siddiqui Globulin (S) [Mass/Vol] 3.0 g/dL Normal T [facility] Comment on above: Performed By: #### C MP #### [facility] [address] [place] [address] Dr. Anette Siddiqui Glucose [Mass/Vol] 79 mg/dL Normal 74-106 [facility] Comment on above: Performed By: #### C MP #### [facility] [address] [place] [address] Dr. Anette Siddiqui Potassium [Moles/Vol] 3.7 mmol/L Normal 3.5-5.1 [facility] Comment on above: Performed By: #### C MP #### [facility] [address] [address] [address] Anette Siddiqui Protein [Mass/Vol] 7.2 g/dL Normal 6.4-8.2 [facility] Comment on above: Performed By: #### C MP #### [facility] [address] [address] [address] Anette Siddiqui Sodium [Moles/Vol] 141 mmol/L Normal 136-145 [facility] Comment on above: Performed By: #### C MP #### [facility] [address] [address] [address] Anette Siddiqui Urea nitrogen [Mass/Vol] 13.0 mg/dL Normal 7.0-18.0 [facility] Comment on above: Performed By: #### C MP #### [facility] [address] [place] [address] Dr. Anette Siddiqui Urea nitrogen/Creatinine [Mass ratio] 17.6 mg/mg Normal [facility] Comment on above: Performed By: #### C MP #### [facility] [address] [place] [address] Dr. Anette Siddiqui PROTIMEon 02-14-2022 INR Coag (PPP) [Relative time] 1.01 {INR} Normal [facility] Comment on above: Performed By: #### P TT, PT #### [facility] [address] [place] [address] Dr. Anette Siddiqui INR GUIDELINES SEE BELOW Normal [facility] Comment on above: Result Comment: HERB RED INR: 2.0 - 3.0 CONDITIONS NOT LISTED BELOW 2.5 - 3.5 FOR PROSTHETIC HEART VALVE REPLACEMENT 2.5 - 3.5 RECURRENT THROMBOSIS Performed By: #### P TT, PT #### [facility] [address] [place] [address] Dr. Anette Siddiqui PT Coag (PPP) [Time] 10.9 s Normal 9.0-11.6 [facility] Comment on above: Performed By: #### P TT, PT #### [facility] [address] [place] [address] Dr. Anette Siddiqui PTTon 02-14-2022 aPTT Coag (Bld) [Time] 26.9 s Normal 22.3-36.[address] [facility] Comment on above: Performed By: #### P TT, PT #### [facility] [address] [address] [address] Anette Siddiqui Vital Signs Date Time Vital Sign Value Performing Clinician Facility 05-26-2024 14:47-0500 Body mass index (BMI) [Ratio] 24.19 kg/m2 Dasha WAGNER Work Phone: [facility] 05-26-2024 14:47-0500 Body weight 68.49 kg Dasha Powers PA Work Phone: [facility] 05-26-2024 14:47-0500 Diastolic blood pressure 66 mm[Hg] Dasha Powers PA Work Phone: [facility] 05-26-2024 14:47-0500 Systolic blood pressure 102 mm[Hg] Dasha Powers PA Work Phone: [facility] 05-06-2024 11:27-0500 Body mass index (BMI) [Ratio] 22.75 kg/m2 Pradip Lionel DO Work Phone: [facility] 05-06-2024 11:27-0500 Body weight 64.41 kg Pradip Lionel DO Work Phone: [facility] 05-06-2024 11:27-0500 Diastolic blood pressure 64 mm[Hg] Pradip Lionel DO Work Phone: [facility] 05-06-2024 11:27-0500 Systolic blood pressure 106 mm[Hg] Pradip Lionel DO Work Phone: [facility] 04-06-2024 14:14-0500 Body mass index (BMI) [Ratio] 21.95 kg/m2 Dasha Powers PA Work Phone: [facility] 04-06-2024 14:14-0500 Body weight 62.14 kg Dasha Powers PA Work Phone: [facility] 04-06-2024 14:14-0500 Diastolic blood pressure 62 mm[Hg] Dasha WAGNER Work Phone: [facility] 04-06-2024 14:14-0500 Systolic blood pressure 102 mm[Hg] Dasha WAGNER Work Phone: [facility] 03-09-2024 13:40-0400 Body mass index (BMI) [Ratio] 21.21 kg/m2 Pradip Lionel DO Work Phone: [facility] 03-09-2024 13:40-0400 Body weight 60.06 kg Pradip Lionel DO Work Phone: [facility] 03-09-2024 13:40-0400 Diastolic blood pressure 60 mm[Hg] Pradip Lionel DO Work Phone: [facility] 03-09-2024 13:40-0400 Systolic blood pressure 106 mm[Hg] Pradip Lionel DO Work Phone: [facility] 02-19-2024 14:28-0400 Body mass index (BMI) [Ratio] 21.21 kg/m2 [facility] Nurse [facility] 02-19-2024 14:28-0400 Body weight 60.06 kg [facility] Nurse [facility] 11-25-2023 11:50-0400 Body temperature 98.5 [degF] MD Brian Elizabeth Work Phone: [facility] 11-25-2023 11:50-0400 Diastolic blood pressure 77 mm[Hg] MD Brian Elizabeth Work Phone: [facility] 11-25-2023 11:50-0400 Heart rate 104 /min MD Brian Elizabeth Work Phone: [facility] 11-25-2023 11:50-0400 SaO2% (BldA) [Mass fraction] 97 % MD Brian Elizabeth Work Phone: [facility] 11-25-2023 11:50-0400 Systolic blood pressure 108 mm[Hg] MD Brian Elizabeth Work Phone: [facility] 11-24-2023 20:13-0400 Respiratory rate 18 /min MD Brian Elizabeth Work Phone: [facility] 11-24-2023 14:55-0400 Body height 167.64 cm MD Brian Elizabeth Work Phone: [facility] 11-24-2023 09:00-0400 Body weight 60.32 kg MD Brian Elizabeth Work Phone: [facility] 07-23-2023 09:12-0500 Body height 167.6 cm [facility]ague [facility] 07-23-2023 09:12-0500 Body mass index (BMI) [Ratio] 23.25 kg/m2 Harris Montague [facility] 07-23-2023 09:12-0500 Body temperature 98.49 [degF] Harris Montague [facility] 07-23-2023 09:12-0500 Body weight 65.32 kg Harris Montague [email or web address] 07-23-2023 09:12-0500 Diastolic blood pressure 74 mm[Hg] Harris Montague [facility] 07-23-2023 09:12-0500 Heart rate 56 /min Harris Montague MD [facility] 07-23-2023 09:12-0500 SaO2% (BldA) [Mass fraction] 97 % Harris Montague [facility] 07-23-2023 09:12-0500 Systolic blood pressure 124 mm[Hg] Harris Montague MD [email or web address] Encounters Encounter Date Encounter Type Care Provider Facility Start: 05-26-2024 End: 05-26-2024 Office outpatient visit 15 minutes Dasha WAGNER Work Phone: [facility] Comment on above: Second trimester pre gnancy; 22 weeks gestation of ; Diabetes mellitus screening Start: 05-26-2024 End: 05-26-2024 Bamboo flowsheet Dasha WAGNER Work Phone: [facility] Start: 05-26-2024 End: 05-26-2024 Bamboo flowsheet Dasha WAGNER Work Phone: [facility] Start: 05-07-2024 End: 05-12-2024 Clinisync Result Encounter Pradip Lionel DO Work Phone: [facility] Unsolicited Start: 05-07-2024 End: 05-12-2024 Clinisync Result Encounter Pradip Lionel DO Work Phone: [facility] Unsolicited Start: 05-06-2024 End: 05-06-2024 Bamboo flowsheet Pradip Lionel DO Work Phone: [facility] Start: 05-06-2024 End: 05-06-2024 Bamboo flowsheet Pradip Lionel DO Work Phone: [facility] Start: 05-06-2024 End: 05-06-2024 Office outpatient visit 15 minutes Pradip Lionel DO Work Phone: [facility] Comment on above: Second trimester pre gnancy; 19 weeks gestation of Start: 05-06-2024 End: 05-06-2024 ambulatory PRADIP LIONEL Not Available Start: 04-06-2024 End: 04-06-2024 Bamboo flowsheet Dasha WAGNER Work Phone: [facility] Start: 04-06-2024 End: 04-19-2024 Bamboo flowsheet Dasha WAGNER Work Phone: [facility] Start: 04-06-2024 End: 04-19-2024 Clinisync Result Encounter Dasha WAGNER Work Phone: [facility] Unsolicited Start: 04-06-2024 End: 04-06-2024 Patient encounter procedure Dasha WAGNER Work Phone: [facility] Start: 04-06-2024 End: 04-06-2024 Periodic preventive med est patient 18-39 yrs Dasha WAGNER Work Phone: [facility] Comment on above: Well woman [...] 03-01-2024 End: 03-01-2024 Emergency department patient visit [facility] Start: 02-19-2024 End: 02-19[facility]: 02-19-[facility]24 End: 02-19-2024 Office outpatient visit 5 minutes [facility] Lionel Nurse [facility] Start: 02-19-2024 End: 02-19-2024 ambulatory PRADIP LIONEL Not Available Start: 02-05-2024 End: 02-05-2024 ambulatory [facility] Start: 02-05-2024 End: 02-05-2024 ambulatory [facility] Start: 02-03-2024 ambulatory Krzysztof Finney acility:[facility] Start: 11-23-2023 Non-patient / Non-visit MD Treasure Elizabeth Work Phone: [facility] Work Phone: Start: 11-22-2023 End: 11-25-2023 Evaluation and management of inpatient MD Brian Elizabeth Work Phone: [facility] [place] [address] Work Phone: Start: 11-22-2023 End: 11-22-2023 Emergency department patient visit HARRIS Crandall [facility] Start: 08-29-2023 End: 08-29-2023 ambulatory [facility] Start: 08-22-2023 End: 08-22-2023 ambulatory [facility] Start: 08-14-2023 Telephone encounter Malia Hammond MA [facility] Start: 08-14-2023 End: 08-14-2023 ambulatory [facility] Not Available Start: 08-13-2023 End: 08-13-2023 ambulatory [facility] Start: 08-06-2023 End: 08-06-2023 ambulatory [facility] Start: 07-30-2023 End: 07-31-2023 Emergency department patient visit HAROLDO S[facility] Start: 07-23-2023 End: 07-23-2023 Office outpatient new 45 minutes Harris Montague MD Work Phone: [facility] Comment on above: Irritable bowel synd sarah with both constipation and diarrhea (Primary Dx); 9 weeks gestation of Start: 07-23-2023 End: 07-23-2023 ambulatory HARRIS Crandall [facility] Start: 05-29-2023 End: 06-01-2023 ambulatory [facility] Start: 11-14-2022 End: 11-14-2022 ambulatory VENITA AMBROSIO [place] Start: 10-23-2022 End: 10-24-2022 ambulatory CARLI WILD [place] Start: 10-23-2022 End: 10-23-2022 Subsequent hospital visit by physician [facility] Comment on above: Rectal bleeding; Abnormal CT of the abdomen Start: 08-07-2022 End: 08-07-[address] SHARMILA KING Facility:[facility] Start: 02-14-2022 End: 02-14-[address] SHARMILA KING Facility:[facility] Procedures Date Procedure Procedure Detail Performing Clinician Start: 05-26-2024 Urnls dip stick/tabl et rgnt non-auto w/o micrscp Dasha WAGNER Work Phone: Start: 05-07-2024 AFP, SERUM, OPEN SPI NA BIFIDA Pradip Lionel DO Work Phone: Start: 05-06-2024 Urnls dip stick/tabl et rgnt non-auto w/o micrscp Pradip Lionel DO Work Phone: Start: 04-06-2024 Urnls dip stick/tabl et rgnt [...] iga igd igg igm each Carli Wild [employer] Work Phone: Plan of Treatment Date Care Activity Detail Author Start: 08-02-2031 DTaP,Tdap and Td Vaccines (7 - Td or Tdap) DTaP,Tdap and Td Vaccines (7 - Td or Tdap) [facility] Start: 08-02-2031 DTaP/Tdap/Td vaccine (7 - Td or Tdap) DTaP/Tdap/Td vaccine (7 - Td or Tdap) [facility] Start: 07-29-2024 Adult BMI Screening Adult BMI Screen ing [facility] Start: 07-29-2024 Tobacco Screening Tobacco Screening [facility] Start: 07-22-2024 Adult BMI Screening Adult BMI Screen ing [facility] Start: 07-22-2024 Depression Screening Depression Scre ening [facility] Start: 07-22-2024 Tobacco Screening Tobacco Screening [facility] Start: 06-22-2024 End: 06-22-2024 Patient encounter procedure 06/22/2024 9:50 AM EST Routine [facility] [address] [place] [id number] Pradip Flowers, [address] [place] [address] [facility] Start: 05-26-2024 End: 05-26-2024 Patient encounter procedure [facility] Comment on above: Arrived Start: 05-26-2024 End: 05-26-2025 CBC panel - Blood by Automated count CBC Lab Routine Diabetes mellitus screening Expected: 05/26/2024 (Approximate), Expires: 05/26/2025 [facility] Work Phone: Comment on above: Expected: 05/26/2024 (Approximate), Expires: 05/26/2025 Start: 05-26-2024 End: 05-26-2025 Measurement of glucose 1 hour after glucose challenge for glucose tolerance test Glucose tolerance, 1 hour Lab Routine Diabetes mellitus screening Expected: 05/26/2024 (Approximate), Expires: 05/26/2025 [facility] Comment on above: Expected: 05/26/2024 (Approximate), Expires: 05/26/2025 Start: 05-06-2024 End: 05-06-2024 Alpha fetoprotein, maternal Alpha fetoprotein, maternal Lab Routine Need for maternal serum alpha-protein (MSAFP) screening Expected: 05/06/2024 (Approximate), Expires: 05/06/2024 [facility] Comment on above: Expected: 05/06/2024 (Approximate), Expires: 05/06/2024 Start: 05-06-2024 End: 05-06-2024 Patient encounter procedure [facility] Comment on above: Arrived Start: 04-06-2024 End: 04-06-2025 US for US [...] gestational age Expected: 02/19/2024 (Approximate), Expires: 02/18/2025 [facility] Comment on above: Expected: 02/19/2024 (Approximate), Expires: 02/18/2025 Start: 02-19-2024 End: 02-18-2025 Blood type and Indirect antibody screen panel - Blood Type and screen Lab Routine Missed menses , unspecified gestational age Expected: 02/19/2024 (Approximate), Expires: 02/18/2025 [facility] Work Phone: Comment on above: Expected: 02/19/2024 (Approximate), Expires: 02/18/2025 Start: 02-19-2024 End: 02-18-2025 Drugs of abuse panel - Urine by Screen method Rapid drug screen, urine Lab Routine , unspecified gestational age Encounter for supervision of normal first in first trimester Expected: 02/19/2024 (Approximate), Expires: 02/18/2025 [facility] Comment on above: Expected: 02/19/2024 (Approximate), Expires: 02/18/2025 Start: 02-19-2024 End: 02-18-2025 US Pelvis transvaginal US OB transvaginal Imaging Routine Missed menses Expected: 02/19/2024 (Approximate), Expires: 02/18/2025 [facility] Comment on above: Expected: 02/19/2024 (Approximate), Expires: 02/18/2025 Start: 11-25-2023 [facility] Start: 11-22-2023 Hospital admission [facility] Start: 11-22-2023 [facility] Start: 01-17-2023 Influenza vaccination Influenza Vacc ine [facility] Start: 12-17-2022 Influenza vaccination Flu vacc ine (Season Ended) [facility] Start: 04-03-2022 Screening for Chlamy altagracia trachomatis Chlamydia Screening [facility] Start: 09-23-2020 Screening for malign ant neoplasm of cervix Pap smear [facility] Start: 09-23-2017 Hepatitis C screening Hepatitis C sc reen [facility] Start: 2015 Screening for Chlamy altagracia trachomatis Chlamydia/GC screen [facility] Start: 09-23-2014 HIV screening HIV screen [facility] Start: 2011 Depression Screen Depression Screen [facility] Start: 03-26-2000 COVID-19 Vaccine (#1) COVID-19 Vacci ne (#1) [facility] Bacteria identified in Urine by Culture Urine culture Microbiology Routine Missed menses Ordered: 02/19/2024 [facility] Comment on above: Ordered: 02/19/2024 End: 10-23-2022 Calprotectin Stool [facility] Work Phone: Comment on above: 1 Occurrences starti ng 10/23/2022 until 10/23/2022 CBC W Auto Different ial panel - Blood CBC and differential Lab Routine Missed menses , unspecified gestational age Ordered: 02/19/2024 [facility] Comment on above: Ordered: 02/19/2024 Celiac Disease Panel Celiac Dise ase Panel Lab Routine Rectal bleeding Abnormal CT of the abdomen 10/23/2022 4:23 PM EDT [facility] Work Phone: CHLAMYDIA TRACHOMATI S (GENITO/STI) CHLAMYDIA TRACHOMATIS (GENITO/STI) Lab Routine Exposure to STD Ordered: 04/06/2024 [facility] Comment on above: Ordered: 04/06/2024 Cytology Cervical or vaginal smear or scraping study Pap Smear Pathology and Cytology Routine Well woman exam with routine gynecological exam Ordered: 04/06/2024 [facility] Comment on above: Ordered: 04/06/2024 Hemoglobin A1c/Hemoglobin.total in Blood Hemoglobin A1c Lab Routine Missed menses , unspecified gestational age Ordered: 02/19/2024 [facility] Comment on above: Ordered: 02/19/2024 Hepatitis B virus surface Ag [Presence] in Serum or Plasma by Immunoassay Hepatitis B surface antigen Lab Routine Missed menses , unspecified gestational age Ordered: 02/19/2024 [facility] Comment on above: Ordered: 02/19/2024 Hepatitis C virus Ab [Presence] in Serum or Plasma by Immunoassay Hepatitis C antibody Lab Routine Missed menses , unspecified gestational age Ordered: 02/19/2024 [facility] Comment on above: Ordered: 02/19/2024 HIV-1/HIV-2 antigen/antibody combination immunoassay HIV-1 and HIV-2 antibodies Lab Routine Missed menses , unspecified gestational age Ordered: 02/19/2024 [facility] Comment on above: Ordered: 02/19/2024 Neisseria gonorrhoea e DNA [Presence] in Unspecified specimen by TRACY with probe detection Neisseria gonorrhea DNA probe, direct Lab Routine Exposure to STD Ordered: 04/06/2024 [facility] Comment on above: Ordered: 04/06/2024 Patient Education Depression, Ad ult (DC) [facility] [place] Instructions Know your Meds [facility] Work Phone: Patient referral [facility] Work Phone: Reagin Ab [Presence] in Serum by RPR RPR Lab Routine Missed menses , unspecified gestational age Ordered: 02/19/2024 [facility] Comment on above: Ordered: 02/19/2024 Rubella antibody, IgG Rubella an tibody, IgG Lab Routine Missed menses , unspecified gestational age Ordered: 02/19/2024 [facility] Comment on above: Ordered: 02/19/2024 SURESWAB(R) ADVANCED VAGINITIS PLUS, TMA SURESWAB(R) ADVANCED VAGINITIS PLUS, TMA Pathology and Cytology Routine Exposure to STD Ordered: 04/06/2024 [facility] Work Phone: Comment on above: Ordered: 04/06/2024 Payers Date Payer Category Payer Self-pay 2021 Medicaid (Managed Care) [employer] [id number] 2021 Medicaid [id number] 2019 Unknown VIRI REYNA (PPO) [id number] 2019-Present [phone] [address] [place] [address] [id number] 1999 Unknown [id number] 2.16.840.1.108092.3.579.2. 593 1999 Unknown [id number] 2.16.840.1.447679.3.579.2. 593 1999 Unknown [id number] 2.16.840.1.335179.3.579.2. 174 1999 Unknown [id number] 2.16.840.1.917268.3.579.2. 174 1999 Unknown [id number] 2.16.840.1.181479.3.579.2. 173 1999 Unknown [id number] 2.16.840.1.166193.3.579.2. 1285 1999 Unknown [id number] 2.16.840.1.653486.3.579.2. 1285 1999 Unknown [id number] 2.16.840.1.717016.3.579.2. 1285 1999 Unknown [id number] 2.16.840.1.538626.3.579.2. 1285 1999 Unknown [id number] 2.16.840.1.075985.3.579.2. 1285 1999 Unknown [id number] 2.16.840.1.795007.3.579.2. 1285 1999 Unknown [id number] 2.16.840.1.939462.3.579.2. 1285 1999 Unknown [id number] 2.16.840.1.205054.3.579.2. 1285 1999 Unknown [id number] 2.16.840.1.634045.3.579.2. 1285 1999 Unknown [id number] 2.16.840.1.870588.3.579.2. 1285 1999 Unknown [id number] 2.16.840.1.706838.3.579.2. 1285 1999 Unknown [id number] 2.16.840.1.575440.3.579.2. 1285 1999 Unknown [id number] 2.16.840.1.556379.3.579.2. 1258 1999 Unknown [id number] 2.16.840.1.116039.3.579.2. 1258 1999 Unknown [id number] 2.16.840.1.483474.3.579.2. 1259 1999 Unknown [id number] 2.16.840.1.651736.3.579.2. 1259 1999 Unknown [id number] 2.16.840.1.899106.3.579.2. 1259 1959 Unknown [id number] 1959 Unknown [id number] Unknown [id number] 2.16.840.1.807056.3.579.2. 531 Unknown [id number] 2.16.840.1.219492.3.579.2. 531 Social History Date Type Detail Facility Start: 10-23-2022 End: 08-13-2023 Tobacco smoking status NHIS Never smoked tobacco [facility] Phone: Start: 10-23-2022 End: 07-23-2023 Tobacco use and exposure Smokeless tobacco non-user [facility]: Start: 1999 Sex Assigned At Not on file [facility] Phone: Start: 07-23-2023 End: 04-06-2024 Alcohol intake Lifetime non-drinker (finding) [facility] Start: 03-11-2020 End: 08-13-2023 History of Social function [facility] Start: 03-11-2020 End: 08-13-2023 Alcohol Use Disorder Identification Test - Consumption [AUDIT-C] [facility] How often to you hav e a drink containing alcohol? Never [facility] Average Number of Drinks Not on file [facility] How hard is it for y ou to pay for the very basics like food, housing, medical care, and heating Somewhat hard [facility] The thought of kelli flynn myself has occurred to me Hardly ever [facility] Start: 05-27-2023 [facility] Start: 1999 Sex Assigned At Female [facility] Start: 07-24-2023 Sexual orientation Heterosexual (finding) [facility] Goals Date Patient Goal Desired Activity /State Functional Status Date Assessment Result Facility 11-25-2023 Functional status Patient at Baseline [facility] Work Phone: Mental Status Date Assessment Result Facility 11-25-2023 Cognitive function Cognitive Sta tus Patient at Baseline [facility] Work Phone: Clinical Notes 07-23-2023 to 05-26-2024 KRISTY Alfaro - 05/26/2024 2:20 PM Marvel Pinon, STEVEN - 05/06/2024 10:40 AM KRISTY Aviles - 04/06/2024 1:50 PM MADDIEIris Gale, STEVEN - 03/09/2024 1:30 PM EDT Note Date & Type Note Facility 05-26-2024 History of Presen t illness Narrative Reason [...] Reactions Amoxicillin Other Reaction(s): stomach upset, Vomiting Other Reaction(s): Vomiting PROBLEMS Active Ambulatory Problems Diagnosis Date [...] Exam Constitutional: Appearance: Normal appearance. She is normal weight. HENT: Head: Normocephalic. Cardiovascular: Rate and Rhythm: Normal rate. Pulses: Normal pulses. Pulmonary: Effort: Pulmonary effort is normal. Breath sounds: Normal breath sounds. Abdominal: Palpations: Abdomen is soft. Musculoskeletal: General: Normal range of motion. Neurological: General: No focal deficit present. Mental Status: She is alert and oriented to person, place, and time. Psychiatric: Mood and Affect: Mood normal. Behavior: Behavior normal. Thought Content: Thought content normal. Judgment: Judgment normal. Vitals and nursing note reviewed. Vitals: Estimated body mass index is 22.75 kg/m as calculated from the following: Height as of 04/13/18: 5' 6.25 . Weight as of 05/06/24: 142 lb. BP: Patient's last menstrual period was 12/19/2023. ASSESSMENT & PLAN ICD-10-CM 1. Second trimester Z34.92 POCT urinalysis dipstick manually resulted 2. 22 weeks gestation of Z3A.22 3. Diabetes mellitus screening Z13.1 CBC Glucose tolerance, 1 hour CBC Glucose tolerance, 1 hour Return OB: Patient presents today for a routine obstetrics appointment. Patient is currently 22w5d . Patient states she is doing well but has complaints of being tired due to current . Patient has verbalizes frequent movement. labor precautions was discussed/given and patient was instructed to perform kick counts three times a day. Orders Placed This Encounter Procedures CBC Glucose tolerance, 1 hour POCT urinalysis dipstick manually resulted Follow Up: Patient is to return to office in 2 week for routine OB appointment. Documented by Jacklyn Gr MA on behalf of: KRISTY Alfaro documented in this encounter [facility] 05-06-2024 History of Presen t illness Narrative Reason [...] SYSTEMS Review of Systems: Review of Systems All other systems reviewed and are negative. OBJECTIVE Objective: Physical Exam Constitutional: Appearance: Normal [...] nursing note reviewed. Exam conducted with a manager of clinical present. Vitals: Estimated body mass index is 22.75 kg/m as calculated from the following: Height as of 18: 5' 6.25 . Weight as of this encounter: 142 lb. BP: 106/64 Patient's last menstrual period was 12/19/2023. ASSESSMENT & PLAN ICD-10-CM 1. Second trimester Z34.92 POCT urinalysis dipstick manually resulted 2. 19 weeks gestation of Z3A.19 Patient presents today for a routine obstetrics appointment. Patient is currently 19w6d with a Estimated Date of Delivery: 09/24/24. Patient voiced that she is having some signs of mastitis and if symptoms worsen then patient will reach out and Keflex can be prescribed for symptoms due to patients allergies. Patient to apply warm compresses to help. Patient is scheduled for anatomy scan. Patient voiced that she feels as though she may have a hernia. Informed patient to monitor symptoms as it currently feels like bone verses a hernia. After delivery this could be assessed and referred for surgery if needed. Provider sent medication to have on hand so patient will not have to call back over the holiday's Documented by Albertina Pinon LPN on behalf of: Pradip Flowers DO documented in this encounter [facility] 04-06-2024 History of Presen t illness Narrative [...] nursing note reviewed. Exam conducted with a manager of clinical present. Vitals: Estimated body mass index is [...] of: KRISTY Alfaro documented in this encounter [facility] 03-09-2024 History of Presen t illness Narrative [...] nursing note reviewed. Exam conducted with a manager of clinical present. Vitals: Estimated body mass index is [...] or undercooked meat, and stay away from [facility]. Patient has been consulted regarding any further do's and don'ts of . Patient voiced understanding and all questions and concerns were answered. Orders Placed This Encounter Procedures POCT urinalysis dipstick manually resulted Follow Up: Patient is to return in 4 weeks for routine OB appointment. Documented by Iris Gale LPN on behalf of: Pradip Flowers DO documented in this encounter [facility] 02-19-2024 History of Presen t illness [...] or undercooked meat, and stay away from [facility]. Patient has also been advised to not [...] Sridevi Stone LPN documented in this encounter [facility] 11-24-2023 Progress note Note Date/Time November 24, 2023 1:21p [facility] EN[facility] [address] [place] [address] Psychiatry Progress Note Signed Patient: Megan Collado MR#: [id number] : 2000 Acct:[id number] Age/Sex: 23 / F Adm Date: 4 Loc: Room: [address] [place] [address] Type : ADM IN Attending Dr: Krzysztof [...] signed by Demetrius Kelley MD> 11/24/23 1322 [facility] Work Phone: 1(955) 715-967707-07-2024 History and physical note Author Krzysztof vargas [facility] November 23, 2023 9:45am Note Date/Time November 23, 2023 7:42a m [facility] [address] [place] [address] Psychiatry H&P Signed Patient: Megan Collado MR#: [id number] : 2000 Acct:[id number] Age/Sex: 23 / F Adm Date: 4 Loc: Room: [address] [place] [address] Type: ADM IN Attending Dr: Krzysztof Montesinos [...] for any support. 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 Concerning for miscarriage/ termination Please call patient to see if she would like appointment with provider to discuss or if OB providerhas already reviewed? [facility] Telephone encounter Note* Telephone Encounter - Malia Sanchez CMA - 08/14/2023 1:54 PM EDT Called patient she stated that she did not need to set up an appointment T [facility] History of Present illness Narrative* Harris Montague MD - 07/23/2023 9:00 AM EST Images from the original note were not included. [address] [place] [address] D [facility] [id number] Patient: Megan Collado Date of : 2000 Encounter Date: 07/23/2023 SUBJECTIVE: Chief Complaint: Chief Complaint Patient presents with [facility] Care Patient ID: Megan Collado is [...] of probiotics regularly Follow-up as needed. HARRIS MONTAGEU MD Family Medicine Physician [facility] / [facility] 07/23/23 This note was completed with voice recognition software. The document was reviewed for errors however some may still be present. Please do not hesitate to contact/[facility] the author to verify any questions/concerns. [facility] summary Author Demetrius Kelley [facility] November 25, 2023 12:08pm Note Date/Time November 25, 2023 11:13 am [facility] [address] [place] [address] Discharge Summary Signed Patient: Megan Collado MR#: [id number] : 2000 Acct:[id number] Age/Sex: 23 / F Adm Date: 4 Loc: Room: [address] [place] [address]: Krzysztof Montesinos MD Copies to: [...] for any support. 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 If at any time you are feeling an increase inyour psychiatric symptoms, call your physician or behavioral healthcare provider. If any time you have thoughts of harming yourself or others contact one of the following: Call 98-8 (available 09/12) Crisis Text Line (available 09/12) text 4HOPE to [phone] [facility] Hope Line (available 8 a.m. Midnight) call [phone] ([phone]) Instructions: Depression, Adult (DC), [facility] Behavioral Health DC Instructions, Know your Meds [...] PO DAILY PRN (Reason: constipation) Follow Up: [facility] [Outside] - 11/26/23 (This will [...] signed by Demetrius Kelley MD> 11/25/23 1208 [facility] Work Phone: Evaluation note* Diagnosis Rectal bleeding Hemorrhage of rectum and anus Abnormal CT of the abdomen Nonspecific (abnormal) findings on radiological and other examination of abdominal area, including retroperitoneum documented in this encounter [facility] Work Phone: evaluation note* Diagnosis Irritable bowel syndrome with both constipation and diarrhea- Primary 9 weeks gestation of [facility]* Diagnosis Onset Date Resolution Status Major depressive disorder, recurrent, moderate acute [facility] Work Phone: Evaluation note* Diagnosis Missed menses , unspecified gestational age Encounter for supervision of normal first in first trimester documented in this encounter [facility] Healthcare[facility]* Diagnosis 11 weeks gestation of First trimester state, incidental documented in this encounter [facility]* Diagnosis Well woman exam with routine gynecological exam Routine gynecological examination Exposure to STD Encounter for anatomic survey Second trimester state, incidental 15 weeks gestation of Need for maternal serum alpha-protein (MSAFP) screening Screening, , for anatomic survey Encounter for anatomic survey documented [facility]* Diagnosis Second trimester state, incidental 19 weeks gestation of documented in [facility]* Diagnosis Second trimester state, incidental 22 weeks gestation of Diabetes mellitus screening Screening for diabetes mellitus documented in this encounter [facility] HealthcareInstructionsNot on filedocumented in this encounterProC[facility] SystemInstructionsNot on filedocumented in this encounterProC[facility] Summary Purpose Family History No [...] and content) DATE CREATED AUTHOR 08/10/2022 [facility] DATE CREATED AUTHOR AUTHOR'S ORGANIZ ATION 11/18/2022 [facility] DATE CREATED AUTHOR AUTHOR'S ORGANIZ ATION 02/26/2023 [facility] DATE CREATED AUTHOR AUTHOR'S ORGANIZ ATION 06/01/2023 [facility] DATE CREATED AUTHOR AUTHOR'S ORGANIZ ATION 02/07/2024 [facility] DATE CREATED AUTHOR AUTHOR'S ORGANIZ ATION 02/08/2024 [facility] DATE CREATED AUTHOR AUTHOR'S ORGANIZ ATION 03/03/2024 [facility] DATE CREATED AUTHOR AUTHOR'S ORGANIZ ATION 03/14/2024 [facility] DATE CREATED AUTHOR AUTHOR'S ORGANIZ ATION 05/09/2024 [facility] EPIC Reason for Visit (unrecogniz ed section and content) Reason Comments Establish Care Reason Comments Amenorrhea Reason Comments Routine Visit Care Teams (unrecognized sec tion and content) Major Account Manager Relationship Specialty Start Date End Date Harris Montague MD [address], [place] [address] PCP - General Internal Medicine 07/23/23 Major Account Manager Relationship Specialty Start Date End Date Harris Montague MD [address] [place] [address] PCP - General Internal Medicine 07/23/23 Team [...] Other Provider Active Start: November 23, 2023 Major Account Manager Relationship Specialty Start Date End Date Sharmila King MD [address] [place] [address] PCP - External PCP Family Medicine 10/26/22 Harris Montague MD [address] [facility] [address] PCP - General Family Medicine 08/14/23 Major Account Manager Relationship Specialty Start Date End Date Sharmila King MD [address] [place] [address] PCP - External PCP Family Medicine 10/26/22 Harris Montague MD [address] [facility] [place] [address] PCP - General Family Medicine 08/14/23 Major Account Manager Relationship Specialty Start Date End Date Sharmila King MD [address] [place] [address] PCP - External PCP Family Medicine 10/26/22 Harris Montague MD [address] [place] [address] PCP - General Family Medicine 08/14/23 Major Account Manager Relationship Specialty Start Date End Date Sharmila King MD [address] [place] [address] PCP - External PCP Family Medicine 10/26/22 Harris Montague MD [address] [place] [address] PCP - General Family Medicine 08/14/23 Major Account Manager Relationship Specialty Start Date End Date Sharmila King MD [address] [place] [address] PCP - External PCP Family Medicine 10/26/22 Harris Montague MD [address], [place] [address] PCP - General Family Medicine 08/14/23 Major Account Manager Relationship Specialty Start Date End Date Sharmila King MD [address] [place] [address] PCP - External PCP Family Medicine 10/26/22 Harris Montague MD [address] [place] [address] PCP - General Family Medicine 08/14/23 Major Account Manager Relationship Specialty Start Date End Date Sharmila King MD [address] [place] [address] PCP - External PCP Family [facility] 10/26/22 Harris Montague MD [address] [facility] [place] [address] PCP - General [facility] 08/14/23 Major Account Manager Relationship Specialty Start Date End Date Sharmila King MD [address] [place] [address] PCP - External PCP [facility] 10/26/22 Harris Montague MD [address] [facility] [place] [address] PCP - [facility] 08/14/23 FOR RECORDS PERTAINING TO PATIENTS WHO [...] BE BASED ON THE PRIMARY CLINICAL RECORDS. [facility]. provides no warranty or guarantee of the accuracy or completeness of information in this document.
[2024-05-29 11:36] LABS: Basophils Percent Auto 0.2 % (0.2-2.0); Eosinophils Absolute Auto 0.1 10^3/uL (0.0-0.7); Eosinophils Percent Auto 0.6 % (0.9-7.0); Hematocrit 36.2 % (36.0-48.0); Hemoglobin 12.3 g/dL (12.0-16.0); Immature Granulocytes Abs Auto 0.06 10^3/uL (0.00-0.03); Immature Granulocytes Pct Auto 0.6 % (0.0-0.5); Lymphocytes Absolute Auto 1.4 10^3/uL (1.2-3.8); Lymphocytes Percent Auto 14.6 % (20.5-60.0); Mean Corpuscular Hemoglobin 32.2 pg (26.7-34.0); Mean Corpuscular Volume 94.8 fL (81.0-99.0); Mean Platelet Volume 9.6 fL (9.5-13.5); Monocytes Absolute Auto 0.6 10^3/uL (0.3-0.8); Monocytes Percent Auto 6.3 % (1.7-12.0); Neutrophils Absolute Auto 7.3 10^3/uL (1.4-6.5); Neutrophils Percent Auto 77.7 % (43.0-75.0); Platelet Count 161 10^3/uL (150-450); Red Blood Count 3.82 10^6/uL (4.20-5.40); White Blood Count 9.4 10^3/uL (4.0-11.0)
[2024-05-29 12:07] LABS: Glucose 1 Hour 82 mg/dL (<130)
== END 2024-05-29 10:35 | disposition home or self-care (01) ==
LOC: LAB 10:35
PROVIDERS: PCP Student in an Organized Health Care Education/Training Program; Visit Provider Physician Assistant
DX: Z13.1 Encounter for screening for diabetes mellitus (principal)
CPT/HCPCS: 36415; 82950; 85025

== ENCOUNTER 2024-06-04 18:49 | Outpatient (OUT) | payer OTHER, SELFPAY ==
--- OUTSIDE RECORDS SUMMARY | 2024-06-04 18:51 | XMS_ITS | CCD ---
Author Organization [facility] Care Team Providers Care Ironworker Foreman Name Role Phone DR SHARMILA KING Primary [...] Admit Provider MD Krzysztof Montesinos Attending Provider [phone] HARRIS MONTAGUE Attending Unavailable SHARMILA KING Referring Unavailable BRIANJOSELINID Karley Primary Care Unavailable BRIANHARRIS Attending Unavailable BRIANHARRIS Referring Unavailable BRIANKALHAMID Karley Primary Care Unavailable BRIANJOSELINID Karley Referring Unavailable BRIANHARRIS Primary Care Unavailable Sharmila King MD Unavailable Harris Montague MD Primary Care Provider BRIANKALHAMID [...] POWERS Attending Unavailable LIONEL, PRADIP Attending Unavailable DASHA POWERS Attending Unavailable Allergies Allergy Classification Reported Allergen(s) Allergy Type Date of Onset Reaction(s) Facility (4 sources) Amoxicillin; Translations: [AMOXICILLIN] Drug Allergy 01-14-2021 [facility] Repository (19 sources) Amoxicillin Drug Allergy 04-07-2021 Vomiting [facility] Medications Current Medications Medication Drug [...] 12:00am ondansetron 4 mg disintegrating oral tablet (15 sources) Serotonin-3 Receptor Antagonist Start: 02-25-2024 End: [...] November 22, 2023 12:00am polyethylene glycol 3350 87178 mg powder for oral solution (1 source) Osmotic Laxative Start: 11-22-2023 Polyethylene Glycol 3350 (Miralax) 17 gram/dose powder Active 17 GM PO Daily November 22, 2023 12:00am 25/iron fum/folic/dha (-1 ORAL) (2 sources) take 1 tablet by mouth once daily 25/iron fum/folic/dha (-1 ORAL) Take 1 tablet by mouth daily. 0 Active MV & Min w/FA-DHA ( Gummies) 0.18-25 MG chewable tablet (14 sources) Start: 03-09-2024 MV & Min w/FA-DHA ( Gummies) 0.18-25 MG chewable tablet Indications: First trimester Chew 1 each Daily 30 tablet 11 03/09/2024 Active MV-Min-Fe Fum-FA-DHA ( 1 PO) (1 source) MV-Min- Fe Fum-FA-DHA ( 1 PO) Take 1 tablet by mouth daily 0 Active Vit-Fe Fumarate-FA ( Vitamins) 28-0.8 MG tablet (16 sources) Start: 11-17-2023 take 1 tablet by mouth once daily Vit-Fe Fumarate-FA ( Vitamins) 28-0.8 MG tablet Take 1 tablet by mouth Daily 11/17/2023 Active sertraline 50 mg oral tablet (17 sources) Serotonin Reuptake Inhibitor Start: 01-27-2024 take [...] Test Name Value Interpretation Reference Range Facility ALL CBC WITH AUTO DIFFon BASOPHILS ABSOLUTE AUTO 0 N [facility] Basophils/100 WBC (Bld) 0.2 % 0.2 - 2.0 % [facility] Eosinophils/100 WBC (Bld) 0.6 % Low 0.9 - 7.0 % [facility] Erythrocyte distribution width (RBC) [Ratio] 14 % 11.0 - 15.0 % [facility] Hematocrit (Bld) [Volume fraction] 36.2 % 36.0 - 48.0 % [facility] Hemoglobin (Bld) [Mass/Vol] 12.3 g/dL 12.0 - 16.0 g/dL [facility] IMMATURE GRANULOCYTES ABS AUTO 0.06 High [facility] Immature granulocytes/100 WBC (Bld) 0.6 % High 0.0 - 0.5 % [facility] Interpretation and review of laboratory results Abnormal [facility] LYMPHOCYTES ABSOLUTE AUTO 1.4 [facility] Lymphocytes/100 WBC (Bld) 14.6 % Low 20.5 - 60.0 % [facility] MCH (RBC) [Entitic mass] 32.2 pg 26. 7 - 34.0 pg [facility] MCHC (RBC) [Mass/Vol] 34 g/dL 29.9 - 35.2 g/dL [facility] MCV (RBC) [Entitic vol] 94.8 fL 81.0 - 99.0 fL [facility] MONOCYTES ABSOLUTE AUTO 0.6 N [facility] Monocytes/100 WBC (Bld) 6.3 % 1.7 - 12.0 % [facility] NEUTROPHILS ABSOLUTE AUTO 7.3 High [facility] Neutrophils/100 WBC (Bld) 77.7 % High 43.0 - 75.0 % [facility] Platelet mean volume (Bld) [Entitic vol] 9.6 fL 9.5 - 13.5 fL [facility] TBH EO # 0.1 [facility] PLT [address] [facility] RBC 3.82 Low [facility] WBC 9.4 [facility] Urinalysis macro (dipstick) panel (U)on 05-26-2024 Bilirubin, UA Negative Negative - 4(70) +++ mg/dL [facility] Blood, UA Negative Negative - 50 Hosea/mcL [facility] Clarity, UA Clear [facility] Color, UA Yellow [facility] Glucose, UA Negative Negative - 2000(110) ++++ mg/dL [facility] Interpretation and review of laboratory results Abnormal [facility] Ketones, UA Negative Negative - 160(16) ++++ mg/dL [facility] Leukocytes, UA Positive Negative - 500+++ Greg/mcL [facility] Comment on above: small Nitrite, UA Negative Negative - Positive [facility] pH, UA 6.5 5 - 9 [facility] Protein, UA Negative Negative - 2000(20) ++++ mg/dL [facility] Spec Grav, UA 1.015 1 - 1.03 [facility] Urobilinogen, UA 0.2 0.2 - 12 mg/dL [facility] AFP, SERUM, OPEN SPINA BIFID Aon 05-12-2024 AFP MOM 1.30 . [facility] AFP VALUE 43.2 ng/mL . [facility] COMMENT: Comment . [facility] Comment on above: Yola Sellers , Ph.D., [facility] Director References: Available Upon Request. Multiples Of Median Cutoffs For AFP Elevations Montaño 2.5 Black 2.8 IDD 2.0 Twins 4.5 Abbreviation Definitions IDD - Insulin Dep Diabetes OSBR - Open Spina Bifida Risk For further inquiries contact [facility] at [phone]. This test was developed and its performance characteristics determined by [employer]. It has not been cleared or approved by the Food and Drug Administration. Performed at: [facility] [address] [address] [place], [place] [id number] Carpet Or Rug Layer Helper: Иван Kearney Formerly [facility], Phone: [phone] GEST. AGE ON COLLECTION DATE 15.6 . weeks [facility] GESTAT. AGE BASED ON LMP . [facility] Comment on above: Recalculations are n ot recommended when gestational dating by LMP and ultrasound are within 10 days. INSULIN DEP DIABETES No . [facility] INTERPRETATION Comment . [facility] Comment on above: Interpretation: Scre en [...] Customer Services to discuss available options. The [employer] recommends amniocentesis be offered to women age 35 and older. [age] [facility] MULTIPLE GESTATION No . [facility] OSBR RISK 1 [place] 4803 . [facility] RACE . [facility] RESULTS Report . [facility] TEST RESULTS: Negative . [facility] WEIGHT 137 . lbs [facility] N N LMP [id number] 4 15 N 1 Y 137 N N N N N White/ [facility] Urinalysis macro (dipstick) panel (U)on 05-06-2024 Bilirubin, UA Negative Negative - 4(70) +++ mg/dL [facility] Blood, UA Negative Negative - 50 Hosea/mcL [facility] Clarity, UA Clear [facility] Color, UA Yellow [facility] Glucose, UA Negative Negative - 1999(110) ++++ mg/dL [facility] Interpretation and review of laboratory results Abnormal [facility] Ketones, UA Negative Negative - 160(16) ++++ mg/dL [facility] Leukocytes, UA Positive Negative - 500+++ Greg/mcL [facility] Comment on above: small Nitrite, UA Negative Negative - Positive [facility] pH, UA 7 5 - 9 [facility] Protein, UA Negative Negative - 1999(20) ++++ mg/dL [facility] Spec Grav, UA 1.02 1 - 1.03 [facility] Urobilinogen, UA 0.2 0.2 - 12 mg/dL [facility] IGP,APTIMA HPV,AGE GDLNon AGE GDLN ACOG TESTING Note . [facility] Comment on above: TESTS RESULT FLAG UN ITS REF RANGE LAB Clinician Provided Cytology Information Source.............Cervix No. of containers..01 ThinPrep Vial Age Algo ACOG Krys... FLAG LEGEND: L-Low Normal,H-High Normal,LL-Alert Low,HH-Alert High <-Panic Low,>-Panic High,A-Abnormal,AA-Critical Abnormal Performed at: 01 =G [facility] [place] [address] Eliza Peters MD, IGP, RFX APTIMA HPV ASCU Note . [facility] Comment on above: TESTS RESULT FLAG UN ITS REF RANGE LAB DIAGNOSIS: 02 NEGATIVE FOR INTRAEPITHELIAL LESION OR MALIGNANCY. THIS SPECIMEN WAS RESCREENED PART OF OUR [employer] DISTRIBUTOR OPERATOR PROGRAM. Specimen adequacy: 02 Satisfactory for evaluation. No endocervical component is identified. Performed by: 02 Alyssia Funez, Instrument Repairer [employer] (ASC) QC reviewed by: 02 Elena Dumont, Supervisory Instrument Repairer [employer] (ASC) . 02 Note: Note 02 The Pap [...] <-Panic Low,>-Panic High,A-Abnormal,AA-Critical Abnormal Performed at: [address] [id number] Eliza Peters MD, Performed at: = - [facility] [address] [id number] Carpet Or Rug Layer Helper: Eliza Peters MD, Phone: [phone] Performed at: [facility] [address] [id number] Carpet Or Rug Layer Helper: Eliza Peters MD, Phone: [phone] SPATULA-ALONE CERVIX [facility] Urinalysis macro (dipstick) panel (U)on 04-06-2024 Bilirubin, UA Negative Negative - 4(70) +++ mg/dL [facility] Blood, UA Negative Negative - 50 Hosea/mcL [facility] Clarity, UA Clear [facility] Color, UA Yellow [facility] Glucose, UA Negative Negative - 1999(110) ++++ mg/dL [facility] Interpretation and review of laboratory results Abnormal [facility] Ketones, UA Positive Negative - 160(16) ++++ mg/dL [facility] Comment on above: trace Leukocytes, UA Negative Negative - 500+++ Greg/mcL [facility] Nitrite, UA Negative Negative - Positive [facility] pH, UA 7 5 - 9 [facility] Protein, UA Negative Negative - 1999(20) ++++ mg/dL [facility] Spec Grav, UA 1.025 1 - 1.03 [facility] Urobilinogen, UA 1.0 0.2 - 12 mg/dL [facility] Urinalysis macro (dipstick) panel (U)on 03-09-2024 Bilirubin, UA Negative Negative - 4(70) +++ mg/dL [facility] Blood, UA Negative Negative - 50 Hosea/mcL [facility] Clarity, UA Clear [facility] Color, UA Yellow [facility] Glucose, UA Negative Negative - 1999(110) ++++ mg/dL [facility] Interpretation and review of laboratory results Abnormal [facility] Ketones, UA Negative Negative - 160(16) ++++ mg/dL [facility] Leukocytes, UA Trace Negative - 500+++ Greg/mcL [facility] Nitrite, UA Negative Negative - Positive [facility] pH, UA 6.5 5 - 9 [facility] Protein, UA Negative Negative - 1999(20) ++++ mg/dL [facility] Spec Grav, UA 1.02 1 - 1.03 [facility] Urobilinogen, UA 0.2 0.2 - 12 mg/dL [facility] CBC AND AUTO DIFFon 02-19-20 24 ABSOLUTE BASOPHIL 0.0 X10E9/L Normal 0.0-0.2 [facility] Comment on above: Performed By: #### C NIKA JAEGER, #### [facility] ([id number]) [address] [place] [address] ABSOLUTE NEUTROPHIL 6.7 X10E9/L High 1.5-6.6 [facility] Comment on above: Performed By: #### C MIL [facility], #### [facility] ([id number]) [address] [place] [address] 50870 Basophils/100 WBC (Bld) 0.3 % Normal P [facility] Comment on above: Performed By: #### Manish JAEGER CMP, #### [facility] ([id number]) [address] [place] [address]654 Eosinophils (Bld) [#/Vol] 0.0 10*3/uL Normal 0.0-0.4 [facility] Comment on above: Performed By: #### C NIKA JAEGER, #### [facility] ([id number]) [address] [place] [address]5635 Eosinophils/100 WBC (Bld) 0.4 % Normal [facility] Comment on above: Performed By: #### C NIKA JAEEGR, #### [facility] ([id number]) [address] [place] [address] 87455 Erythrocyte distribution width (RBC) [Ratio] 14.2 % Normal 11.5-15.0 [facility] Comment on above: Performed By: #### Manish JAEGER CMP, #### [facility] ([id number]) [address] [place] [address] 97028 Hematocrit (Bld) [Volume fraction] 40.0 % Normal 35-47 [facility] Comment on above: Performed By: #### Manish JAEGER CMP, #### [facility] ([id number]) [address] [place] [address] 45484 Hemoglobin (Bld) [Mass/Vol] 13.7 g/dL Normal 11.7-15.5 [facility] Comment on above: Performed By: #### Manish JAEGER CMP, #### [facility] ([id number]) [address] [place] [address] 65420 Lymphocytes (Bld) [#/Vol] 1.6 10*3/uL Normal 1.0-3.5 [facility] Comment on above: Performed By: #### Manish JAEGER CMP, #### [facility] ([id number]) [address] [place] [address] 10272 Lymphocytes/100 WBC (Bld) 17.6 % Normal [facility] Comment on above: Performed By: #### Manish JAEGER CMP, #### [facility] ([id number]) [address] [place] [address] 78519 MCH (RBC) [Entitic mass] 31.3 pg Normal 27-34 [facility] Comment on above: Performed By: #### Manish JAEGER CMP, #### [facility] ([id number]) [address] [place] [address] 50678 MCHC (RBC) [Mass/Vol] 34.3 g/dL Normal 32-36 [facility] Comment on above: Performed By: #### C MIL CMP, #### [facility] ([id number]) [address] [place] [address] 63364 MCV (RBC) [Entitic vol] 91 fL Normal 80-100 [facility] Comment on above: Performed By: #### Manish JAEGER, CMP, #### [facility] ([id number]) [address] [place] [address] 61449 Monocytes (Bld) [#/Vol] 0.6 10*3/uL Normal 0-0.9 [facility] Comment on above: Performed By: #### Manish JAEGER CMP, #### [facility] ([id number]) [address] [place] [address] 26129 Monocytes/100 WBC (Bld) 6.6 % Normal [facility] Comment on above: Performed By: #### Manish JAEGER, CMP, #### [facility] ([id number]) [address] [place] [address] 32733 Neutrophils/100 WBC (Bld) 75.1 % Normal [facility] Comment on above: Performed By: #### Manish JAEGER, CMP, #### [facility] ([id number]) [address] [place] [address] 87581 Platelet mean volume (Bld) [Entitic vol] 9.0 fL Normal 7-12 [facility] Comment on above: Performed By: #### Manish JAEGER, CMP, #### [facility] ([id number]) [address] [place] [address] 22372 Platelets (Bld) [#/Vol] 173 10*3/uL Normal 150-450 [facility] Comment on above: Performed By: #### Manish JAEGER CMP, #### [facility] ([id number]) [address] [place] [address] 48645 RBC COUNT 4.39 X10E12/L Normal 3.80-5.20 [facility] Comment on above: Performed By: #### Manish JAEGER CMP, #### [facility] ([id number]) [address] [place] [address] 48777 WBC (Bld) [#/Vol] 8.9 10*3/uL Normal 4.0-11.0 [facility] Comment on above: Performed By: #### Manish JAEGER CMP, #### [facility] ([id number]) [address] [place] [address] 52362 DRUG SCREEN, URINEon 024 AMPHETAMINE/METHAMP Negative Normal NEG [facility] Comment on above: Result Comment: AMPH /METH screening cut off = 1000 ng/mL Performed By: #### Manish JAEGER [facility], #### [facility] ([id number]) [address] [place] [address] 36546 BARBITURATES Negative Normal NEG [facility] Comment on above: Result Comment: Marcela iturates screening cut off value = 200 ng/mL Performed By: #### C NIKA JAEGER, #### [facility] ([id number]) [address] [place] [address] 76406 BENZODIAZEPINES Negative Normal NEG [facility] Comment on above: Result Comment: Jose odiazepines screening cut off value = 200 ng/mL Performed By: #### C MIL [facility], #### [facility] ([id number]) [address] [place] [address] 60021 CANNABINOIDS Negative Normal NEG [facility] Comment on above: Result Comment: Tre abinoids/THC screening cut off value = 50 ng/mL Performed By: #### C MIL [facility], #### [facility] ([id number]) [address] [place] [address] 81563 COCAINE METABOLITE Negative Normal NEG [facility] Comment on above: Result Comment: Coca ine screening cut off value = 300 ng/mL Performed By: #### C MIL [facility], #### [facility] ([id number]) [address] [place] [address] 45180 ECSTASY Negative Normal NEG [facility] Comment on above: Result Comment: Ecst asy screening cut off value = 500 ng/mL This report is intended for use in clinical monitoring or management of patients. Performed By: #### C MIL [facility], #### [facility] ([id number]) [address] [place] [address] 84459 METHADONE Negative Normal [facility] Comment on above: Result Comment: Meth adone screening cut off value = 300 ng/mL. Performed By: #### C MIL [facility], #### [facility] ([id number]) [address] [place] [address] 09269 OPIATES Negative Normal NEG [facility] Comment on above: Result Comment: Opia krys screening cut off value = 300 ng/mL NOTE: This test is used for the detection of codeine, hydrocodone (>1000 ng/mL), morphine and hydromorphone (>900 ng/mL) in urine. Performed By: #### Manish JAEGER [facility], #### [facility] ([id number]) [address] [place] [address] [place] [address] OXYCODONE Negative Normal NEG [facility] Comment on above: Result Comment: Oxyc odone screening cut off value = 300 ng/mL NOTE: This test is used for the detection of oxycodone and oxymorphone in urine. Performed By: #### C NIKA JAEGER, #### [facility] ([id number]) [address] [place] [address] 94319 PHENCYCLIDINE Negative Normal NEG [facility] Comment on above: Result Comment: Phen cyclidine screening cut off value = 25 ng/mL Performed By: #### C NIKA JAEGER, #### [facility] ([id number]) [address] [place] [address] 68877 HBV surface Ag IA Qlon 02-18 HEPATITIS B SURF AG Negative Normal NEG [facility] Comment on above: Performed By: #### C MIL [facility], #### [facility] ([id number]) [address] [place] [address] 70415 HCG ( test) Ql (U)o n 02-19-2024 Interpretation and review of laboratory results Abnormal [facility] Preg Test, Ur Positive [facility] HCV Ab IA Qlon 02-19-2024 ANTI HCV W/PCR REFLX Non-Reactive Normal NRCT Pr [facility] Comment on above: Result Comment: If recent infection suspected, recommend repeat testing (>2 months). Faxxom-xt-voppqp ratio is <0.80. Performed By: #### C NIKA JAEGER, #### [facility] ([id number]) [address] [place] [address] 25734 HGB A1C (GLYCO-HGB)on 2023 Glucose [Mass/Vol] 105 mg/dL Normal [facility] Comment on above: Performed By: #### C NIKA JAEGER, #### [facility] ([id number]) [address] [place] [address] 05409 HbA1c (Bld) [Mass fraction] 5.3 % Normal 4.4-5.6 [facility] Comment on above: Result Comment: NOTE ADA Guidelines Result HgbA1c Normal : less than 5.7 % Prediabetes : 5.7 % to 6.4 % Diabetes : > 6.4 % Use with caution in patients with abnormal hemoglobin variants as the half-life of red blood cells and in vivo glycation rates are affected. Performed By: #### C NIKA JAEGER, #### [facility] ([id number]) [address] [place] [address] 01439 HIV 1+2 Ab+HIV1 p24 Ag IA Ql on 02-19-2024 HIV 1 and 2 Ab/Ag Screen Non-Reactive Normal NRCT [facility] Comment on above: Result Comment: This [...] diagnoses. Performed By: #### Manish JAEGER CMP, [id number] #### [facility] ([id number]) [address] [place] [address] 16187 Rubella virus IgG Qn (S)on RUBELLA IgG 119 IU/mL Normal [facility] Comment on above: Result Comment: Interpretation-------- <8 NEGATIVE-considered Not Immune 8-9 EQUIVOCAL-consider retesting with new specimen >9 POSITIVE-considered Immune Performed By: #### Manish JAEGER, NIKA, #### [facility] ([id number]) [address] [place] [address] 80363 T. pallidum IgG+IgM IA Ql (S )on 02-19-2024 Syphilis Total <0.2 Normal 0.0-0.8 [facility] Comment on above: Result Comment: NON REACTIVE No serologic evidence of infection to Treponema pallidum (syphilis). Repeat testing may be considered in patients with suspected acute or primary syphilis in 2 to 4 weeks. Performed By: #### C BCA, [facility], 77473-0 #### [facility] ([id number]) [address] [place] [address] 97515 URINE CULTUREon 02-19-2024 Bacteria identified Cx Nom (U) CULTURE RESULTS 10-50,000 ORGANISMS/mL NORMAL UROGENITAL KACEY Normal [facility] Comment on above: Performed By: #### C BCA, [facility], 48767-7 #### [facility] ([id number]) [address] [place] [address] 46155 Urinalysis macro (dipstick) panel (U)on 02-19-2024 Bilirubin, UA Negative Negative - 4(70) +++ mg/dL [facility] Blood, UA Negative Negative - 50 Hosea/mcL [facility] Clarity, UA Clear [facility] Color, UA Yellow [facility] Glucose, UA Negative Negative - 2000(110) ++++ mg/dL [facility] Interpretation and review of laboratory results Normal [facility] Ketones, UA Negative Negative - 160(16) ++++ mg/dL [facility] Leukocytes, UA Negative Negative - 500+++ Greg/mcL [facility] Nitrite, UA Negative Negative - Positive [facility] pH, UA 5.5 5 - 9 [facility] Protein, UA Negative Negative - 2000(20) ++++ mg/dL [facility] Spec Grav, UA 1.015 1 - 1.03 [facility] Urobilinogen, UA 1.0 0.2 - 12 mg/dL [facility] URINE CULTUREon 02-05-2024 Bacteria identified Cx Nom (U) CULTURE RESULTS 10-50,000 ORGANISMS/mL NORMAL UROGENITAL KACEY Normal [facility] Comment on above: Performed By: #### 6 30-4 #### [facility] ([id number]) [address], [address] [place] [address] Alanine aminotransferase [En zymatic activity/volume] in Serum or PlasmaOrdered By: Krzysztof Montesinos on 11-24-2023 ALT [Catalytic activity/Vol] 9 U/L Normal 7-52 [facility] Comment on above: Performed By: #### C MP #### [facility] [address] [place] [address] [place] Albumin [Mass/volume] in Ser um or Plasma by Bromocresol green (BCG) dye binding methoOrdered By: Krzysztof Montesinos on 11-24-2023 Albumin BCG dye [Mass/Vol] 4.3 g/dL 3.5-5.7 [facility] Alkaline phosphatase [Enzyma tic activity/volume] in Serum or PlasmaOrdered By: Krzysztof Montesinos on 11-24-2023 ALP [Catalytic activity/Vol] 39 U/L Normal 34-104 [facility] Comment on above: Performed By: #### C MP #### [facility] [address] [place] [address] [place] Aspartate aminotransferase [ Enzymatic activity/volume] in Serum or PlasmaOrdered By: Krzysztof Montesinos on 11-24-2023 AST [Catalytic activity/Vol] 14 U/L Normal 13-39 [facility] Comment on above: Performed By: #### C MP #### [facility] [address] [place] [address] [place] Bilirubin.total [Mass/volume ] in Serum or PlasmaOrdered By: Krzysztof Montesinos on 11-24-2023 Bilirubin [Mass/Vol] 1.0 mg/dL Normal 0.3-1.0 [facility] Comment on above: Performed By: #### C MP #### [place] [address] [place] Calcium [Mass/volume] in Ser um or PlasmaOrdered By: Krzysztof Montesinos on 11-24-2023 Calcium [Mass/Vol] 9.0 mg/dL Normal 8.6-10.3 [facility] Comment on above: Performed By: #### C MP #### [address] Carbon dioxide, total [Moles /volume] in Serum or PlasmaOrdered By: Krzysztof Montesinos on 11-24-2023 CO2 [Moles/Vol] 25.4 mmol/L Normal 21.0-31.0 [facility] Comment on above: Performed By: #### C MP #### [address] Chloride [Moles/volume] in S delgado or PlasmaOrdered By: Krzysztof Montesinos on 11-24-2023 Chloride [Moles/Vol] 111 mmol/L High 98-107 [facility] Comment on above: Performed By: #### C MP #### [address] Comprehensive Metabolic Pane thomas 11-24-2023 Albumin [Mass/Vol] 4.3 g/dL Normal 3.5-5.7 [facility] Comment on above: Performed By: #### C MP #### [address] Creatinine Clr Calc Pharmacy 94.43 Normal [facility] Comment on above: Result Comment: PERF ORMED BY: [place] [address] PATHOLOGIST [employer] WORKER MARGARITA CUELLAR M.D. Performed By: #### C MP #### [place] [address] [place] GFR/1.73 sq M.predicted MDRD (S/P/Bld) [Vol rate/Area] mL/min/{1.73_m2} Normal [facility] Comment on above: Performed By: #### C MP #### [address] Creatinine [Mass/volume] in Serum or PlasmaOrdered By: Krzysztof Montesinos on 11-24-2023 Creatinine [Mass/Vol] 0.86 mg/dL Normal 0.60-1.20 [facility] Comment on above: Performed By: #### C MP #### [facility] [address] [place] [address] [place] Glucose [Mass/volume] in Ser um or PlasmaOrdered By: Krzysztof Montesinos on 11-24-2023 Glucose [Mass/Vol] 94 mg/dL Normal 70-100 [facility] Comment on above: ADA recommended refe rence rangeRandom Glucose Reference Range is dependent on time and content of last meal. Glucose of more than 200 mg/dL in a nonstressed, ambulatory subject supports the diagnosis of Diabetes Mellitus. Result Comment: [place] om Glucose Reference Range is dependent on time and content of last meal. Glucose of more than 200 mg/dL in a nonstressed, ambulatory subject supports the diagnosis of Diabetes Mellitus. ADA recommended reference range Performed By: #### C MP #### [facility] [address] No Panel InformationOrdered By: Krzysztof Montesinos on 11-24-2023 Estimated GFR (CKD-EPI) > 60.0 mL/Min [facility] Creatinine Clearance (Chem 94.43 [facility] Potassium [Moles/volume] in Serum or PlasmaOrdered By: Krzysztof Montesinos on 11-24-2023 Potassium [Moles/Vol] 4.7 mmol/L Normal 3.5-5.1 [facility] Comment on above: Performed By: #### C MP #### [facility] [address] [place] [address] [place] Protein [Mass/volume] in Ser um or PlasmaOrdered By: Krzysztof Montesinos on 11-24-2023 Protein [Mass/Vol] 6.7 g/dL Normal 6.4-8.9 [facility] Comment on above: Performed By: #### C MP #### [address] Serum globulin measurement b y calculation (mass/volume)Ordered By: Krzysztof Montesinos on 11-24-2023 Globulin (S) [Mass/Vol] 2.4 g/dL Normal [facility] Comment on above: Performed By: #### C MP #### [address] Serum or plasma albumin/glob ulin mass ratioOrdered By: Krzysztof Montesinos on 11-24-2023 Albumin/Globulin [Mass ratio] 1.8 {ratio} Normal [facility] Comment on above: Performed By: #### C MP #### [address] Serum or plasma anion gap de terminationOrdered By: Krzysztof Montesinos on 11-24-2023 Anion gap [Moles/Vol] 9.3 mmol/L Normal 6.0-15.0 [facility] Comment on above: Performed By: #### C MP #### [address] Sodium [Moles/volume] in Ser um or PlasmaOrdered By: Krzysztof Montesinos on 11-24-2023 Sodium [Moles/Vol] 141 mmol/L Normal 136-145 [facility] Comment on above: Performed By: #### C MP #### [address] Urea nitrogen [Mass/volume] in Serum or PlasmaOrdered By: Krzysztof Montesinos on 11-24-2023 Urea nitrogen [Mass/Vol] 12 mg/dL Normal 7-25 [facility] Comment on above: Performed By: #### C MP #### [address] Cholesterol [Mass/volume] in Serum or PlasmaOrdered By: Krzysztof Montesinos on 11-23-2023 Cholesterol [Mass/Vol] 129 mg/dL Low 140-200 [facility] Comment on above: Chol less than 200 m g/dl low riskChol 201-239 mg/dl borderline riskChol 240 mg/dl and greater high risk Result Comment: Chol less than 200 mg/dl low risk Chol 201-239 mg/dl borderline risk Chol 240 mg/dl and greater high risk Performed By: #### L IPID, TSH3 wRFLX, [id number] #### [facility] [address] [place] [id number] [place] Cholesterol in LDL Calc [Mas s/Vol]Ordered By: Krzysztof Montesinos on 11-23-2023 Cholesterol in LDL [Mass/Vol] 64 mg/dL 0-100 [facility] Comment on above: LDL ATP III CLASSIFI CATIONLDL less than 100 mg/dL OptimalLDL 100-129 mg/dL Near or above optimalLDL 130-159 mg/dL Borderline highLDL 160-189 mg/dL HighLDL greater than 189 mg/dL Very high Cholesterol in VLDL Calc [Ma ss/Vol]Ordered By: Krzysztof Montesinos on 11-23-2023 Cholesterol in VLDL [Mass/Vol] 7 mg/dL [facility] Lipid Panelon 11-23-2023 LDL Cholesterol,Calculated 64 mg/dL Normal 0-100 [facility] Comment on above: Result Comment: LDL ATP III CLASSIFICATION LDL less than 100 mg/dL Optimal LDL 100-129 mg/dL Near or above optimal LDL 130-159 mg/dL Borderline high LDL 160-189 mg/dL High LDL greater than 189 mg/dL Very high Performed By: #### L IPID, TSH3 wRFLX, [id number] #### [facility] [address] [place] [address] [place] Triglyceride w/Reflex 39 mg/dL Normal 0-149 [facility] Comment on above: Result Comment: TRIG ATP III CLASSIFICATION TRIG less than 150 mg/dL Normal TRIG 150-199 mg/dL Borderline high TRIG 200-500 mg/dL High TRIG greater than 500 mg/dL Very high Standard traceable to the Center for Disease Conrtrol and Prevention (CDC) test method. Performed By: #### L IPID, TSH3 wRFLX, [id number] #### [facility] [address] [place] [id number] [facility] VLDL CHOLESTEROL 7 mg/dL Normal [facility] Comment on above: Performed By: #### L IPID, TSH3 wRFLX, [id number] #### [facility] [address] [place] [address] Serum or plasma high density lipoprotein (HDL) cholesterol measurementOrdered By: Krzysztof Montesinos on 11-23-2023 Cholesterol in HDL [Mass/Vol] 57 mg/dL Normal 23-92 [facility] Comment on above: HDL CHOL ATP-III CLA SSIFICATION Cardiovascular RiskHDL > or equal to 60 mg/dL LOWHDL < 40 mg/dL HIGH Result Comment: HDL CHOL ATP-III CLASSIFICATION Cardiovascular Risk HDL > or equal to 60 mg/dL LOW HDL < 40 mg/dL HIGH Performed By: #### L IPID, TSH3 wRFLX, [id number] #### [facility] [address] [place] [address] Serum or plasma total choles terol/high density lipoprotein (HDL) cholesterol mass ratOrdered By: Krzysztof Montesinos on 11-23-2023 Cholesterol.total/Choles terol in HDL [Mass ratio] 2.3 {ratio} Normal <5.0 [facility] Comment on above: Performed By: #### L IPID, TSH3 wRFLX, [id number] #### [facility] [address] [place] [address] Thyroid Stim Hormone w/Rflxo n 11-23-2023 Thyroid Stim Hormone w/Rflx 1.52 u[iU]/mL Normal 0.45-5.33 [facility] Comment on above: Performed By: #### L IPID, TSH3 wRFLX, [id number] #### [facility] [address] [place] [address] Thyrotropin [Units/volume] i n Serum or PlasmaOrdered By: Krzysztof Montesinos on 11-23-2023 TSH Qn 1.52 m[IU]/L 0.45-5.33 [facility] Triglyceride [Mass/volume] i n Serum or PlasmaOrdered By: Krzysztof Montesinos on 11-23-2023 Triglyceride [Mass/Vol] 39 mg/dL 0-149 [facility] Comment on above: TRIG ATP III CLASSIF ICATIONTRIG less than 150 mg/dL NormalTRIG 150-199 mg/dL Borderline highTRIG 200-500 mg/dL High TRIG greater than 500 mg/dL Very highStandard traceable to the Center for Disease Conrtrol and Prevention (CDC) test method. Vitamin D 25 Hydroxy Totalon 11-23-2023 Vitamin D 25 Hydroxy Total 23.9 ng/mL Low 30-100 [facility] Comment on above: Result Comment: NATE MIN D STATUS 25(OH)VITAMIN D RANGE (ng/mL) Deficient <20 Insufficient 20 to <30 Sufficient 30 to 100 Reference: Ysabel Robertson, Jia CABRERA, et al. Evaluation,treatment, and prevention of vitamin D deficiency; an Endocrine Society clinical practice guideline. JCEM. 2010; 96(7):1911-30. PERFORMED BY: [place] [address] PATHOLOGIST [employer] WORKER MARGARITA CUELLAR M.D. Performed By: #### L IPID, TSH3 wRFLX, [id number] #### [facility] [address] Vitamin D+Metabolites [Mass/ volume] in Serum or PlasmaOrdered By: Krzysztof Montesinos on 11-23-2023 Vitamin D+Metabolites [Mass/Vol] 23.9 ng/mL Low 30-100 [facility] Comment on above: VITAMIN D STATUS 25( [place])VITAMIN D RANGE (ng/mL) Deficient <20 Insufficient 20 to <30Sufficient 30 to 100Reference: Ysabel Robertson, Jia CABRERA, et al. Evaluation,treatment, and prevention of vitamin D deficiency; an Endocrine Society clinical practice guideline. JCEM. 2010; 96(7):1911-30. BASIC METABOLIC PANLon 11-21 Anion gap [Moles/Vol] 6 mmol/L Normal 5-15 [facility] Comment on above: Performed By: #### C BCA, CMP, [id number] #### [facility] ([id number]) [address] [place] [address] Calcium [Mass/Vol] 8.6 mg/dL Normal 8.5-10.5 [facility] Comment on above: Performed By: #### C NIKA JAEGER, #### [facility] ([id number]) [address] [place] [address] Chloride [Moles/Vol] 108 mmol/L Normal 98-109 [facility] Comment on above: Performed By: #### C MIL [facility], #### [facility] ([id number]) [address] [place] [address] 27041 CO2 [Moles/Vol] 22 mmol/L Normal 22-32 [facility] Comment on above: Performed By: #### C NIKA JAEGER, #### [facility] ([id number]) [address] [place] [address] 22638 Creatinine [Mass/Vol] 0.84 mg/dL Normal 0.40-1.00 [facility] Comment on above: Result Comment: METH OD TRACEABLE TO IDMS STANDARD Performed By: #### C NIKA JAEGER, #### [facility] ([id number]) [address] [place] [address] 04198 eGFR (CKD-EPI) NON-RACE DEPENDENT >90 Normal >59 [facility] Comment on above: Result Comment: Reported eGFR is based on the CKD-EPI 2020 equation that does not use a race coefficient. Performed By: #### C NIKA JAEGER, #### [facility] ([id number]) [address] [place] [address] 28778 Glucose [Mass/Vol] 98 mg/dL Normal 65-99 [facility] Comment on above: Performed By: #### C NKIA JAEGER, #### [facility] ([id number]) [address] [place] [address] 11227 Potassium [Moles/Vol] 3.3 mmol/L Low 3.5-5.0 [facility] Comment on above: Performed By: #### C NIKA JAEGER, #### [facility] ([id number]) [address] [place] [address] 19589 Sodium [Moles/Vol] 136 mmol/L Normal 134-146 [facility] Comment on above: Performed By: #### Manish JAEGER CMP, #### [facility] ([id number]) [address] [place] [address] 45175 Urea nitrogen [Mass/Vol] 14 mg/dL Normal 5-23 [facility] Comment on above: Performed By: #### Manish JAEGER CMP, #### [facility] ([id number]) [address] [place] [address] 75367 CBC AND AUTO DIFFon 11-22-19 24 ABSOLUTE BASOPHIL 0.0 X10E9/L Normal 0.0-0.2 [facility] Comment on above: Performed By: #### Manish JAEGER CMP, #### [facility] ([id number]) [address] [place] [address] 27988 ABSOLUTE NEUTROPHIL 5.3 X10E9/L Normal 1.5-6.6 [facility] Comment on above: Performed By: #### Manish JAEGER CMP, #### [facility] ([id number]) [address] [place] [address] 12976 Basophils/100 WBC (Bld) 0.5 % Normal [facility] Comment on above: Performed By: #### Manish JAEGER CMP, #### [facility] ([id number]) [address] [place] [address] 26803 Eosinophils (Bld) [#/Vol] 0.1 10*3/uL Normal 0.0-0.4 [facility] Comment on above: Performed By: #### C NIKA JAEGER, #### [facility] ([id number]) [address] [place] [address] 38142 Eosinophils/100 WBC (Bld) 0.7 % Normal [facility] Comment on above: Performed By: #### Manish JAEGER CMP, #### [facility] ([id number]) [address] [place] [address] 80133 Erythrocyte distribution width (RBC) [Ratio] 14.2 % Normal 11.5-15.0 [facility] Comment on above: Performed By: #### Manish JAEGER CMP, #### [facility] ([id number]) [address] [place] [address] 54523 Hematocrit (Bld) [Volume fraction] 41.6 % Normal 35-47 [facility] Comment on above: Performed By: #### Manish JAEGER CMP, #### [facility] ([id number]) [address] [place] [address] 83348 Hemoglobin (Bld) [Mass/Vol] 14.3 g/dL Normal 11.7-15.5 [facility] Comment on above: Performed By: #### Manish JAEGER CMP, #### [facility] ([id number]) [address] [place] [address] 91848 Lymphocytes (Bld) [#/Vol] 1.8 10*3/uL Normal 1.0-3.5 [facility] Comment on above: Performed By: #### Manish JAEGER CMP, #### [facility] ([id number]) [address] [place] [address] 10758 Lymphocytes/100 WBC (Bld) 23.3 % Normal [facility] Comment on above: Performed By: #### Manish JAEGER CMP, #### [facility] ([id number]) [address] [place] [address] 89629 MCH (RBC) [Entitic mass] 30.6 pg Normal 27-34 [facility] Comment on above: Performed By: #### Manish JAEGER CMP, #### [facility] ([id number]) [address] [place] [address] 51361 MCHC (RBC) [Mass/Vol] 34.5 g/dL Normal 32-36 [facility] Comment on above: Performed By: #### Manish JAEGER CMP, #### [facility] ([id number]) [address] [place] [address] 32755 MCV (RBC) [Entitic vol] 89 fL Normal 80-100 [facility] Comment on above: Performed By: #### Manish JAEGER CMP, #### [facility] ([id number]) [address] [place] [address] 27689 Monocytes (Bld) [#/Vol] 0.5 10*3/uL Normal 0-0.9 [facility] Comment on above: Performed By: #### Manish JAEGER, CMP, #### [facility] ([id number]) [address] [place] [address] 35028 Monocytes/100 WBC (Bld) 6.6 % Normal [facility] Comment on above: Performed By: #### Manish JAEGER, CMP, #### [facility] ([id number]) [address] [place] [address] 30016 Neutrophils/100 WBC (Bld) 68.9 % Normal [facility] Comment on above: Performed By: #### Manish JAEGER, CMP, #### [facility] ([id number]) [address] [place] [address] 29868 Platelet mean volume (Bld) [Entitic vol] 9.0 fL Normal 7-12 [facility] Comment on above: Performed By: #### Manish JAEGER CMP, #### [facility] ([id number]) [address] [place] [address] 10453 Platelets (Bld) [#/Vol] 186 10*3/uL Normal 150-450 [facility] Comment on above: Performed By: #### Manish JAEGER CMP, #### [facility] ([id number]) [address] [place] [address] 91023 RBC COUNT 4.68 X10E12/L Normal 3.80-5.20 [facility] Comment on above: Performed By: #### Manish JAEGER CMP, #### [facility] ([id number]) [address] [place] [address] 33499 WBC (Bld) [#/Vol] 7.7 10*3/uL Normal 4.0-11.0 [facility] Comment on above: Performed By: #### Manish JAEGER [facility], #### [facility] ([id number]) [address] [place] [address] 06101 DRUG SCREEN, URINEon 024 AMPHETAMINE/METHAMP Negative Normal NEG [facility] Comment on above: Result Comment: AMPH /METH screening cut off = 1000 ng/mL Performed By: #### Manish JAEGER CMP, #### [facility] ([id number]) [address] [place] [address] 05571 BARBITURATES Negative Normal NEG [facility] Comment on above: Result Comment: Marcela iturates screening cut off value = 200 ng/mL Performed By: #### Manish JAEGER CMP, #### [facility] ([id number]) [address] [place] [address] 03347 BENZODIAZEPINES Negative Normal NEG [facility] Comment on above: Result Comment: Jose odiazepines screening cut off value = 200 ng/mL Performed By: #### C MIL [facility], #### [facility] ([id number]) [address] [place] [address] 22327 CANNABINOIDS Negative Normal NEG [facility] Comment on above: Result Comment: Tre abinoids/THC screening cut off value = 50 ng/mL Performed By: #### C MIL [facility], #### [facility] ([id number]) [address] [place] [address] 33770 COCAINE METABOLITE Negative Normal NEG [facility] Comment on above: Result Comment: Coca ine screening cut off value = 300 ng/mL Performed By: #### C MIL [facility], #### [facility] ([id number]) [address] [place] [address] 18363 ECSTASY Negative Normal [facility] Comment on above: Result Comment: Ecst asy screening cut off value = 500 ng/mL This report is intended for use in clinical monitoring or management of patients. Performed By: #### C MIL [facility], #### [facility] ([id number]) [address] [place] [address] 55549 METHADONE Negative Normal NEG [facility] Comment on above: Result Comment: Meth adone screening cut off value = 300 ng/mL. Performed By: #### C NIKA JAEGER, #### [facility] ([id number]) [address] [place] [address] 18776 OPIATES Negative Normal NEG [facility] Comment on above: Result Comment: Opia krys screening cut off value = 300 ng/mL NOTE: This test is used for the detection of codeine, hydrocodone (>1000 ng/mL), morphine and hydromorphone (>900 ng/mL) in urine. Performed By: #### C NIKA JAEGER, 86593-4 #### [facility] ([id number]) [address] [place] [address] 57992 OXYCODONE Negative Normal NEG [facility] Comment on above: Result Comment: Oxyc odone screening cut off value = 300 ng/mL NOTE: This test is used for the detection of oxycodone and oxymorphone in urine. Performed By: #### C MIL [facility], 43052-7 #### [facility] ([id number]) [address] [place] [address] 83670 PHENCYCLIDINE Negative Normal NEG [facility] Comment on above: Result Comment: Phen cyclidine screening cut off value = 25 ng/mL Performed By: #### C NIKA JAEGER, 32235-1 #### [facility] ([id number]) [address] [place] [address] 16986 ECG 12 lead ECGon 11-22-2023 ECG 12 lead ECG [facility] [place] [address] Electrocardiograph Report Signed Patient: Megan Collado MR#: [id number] : 2000 Acct:[id number] Age/Sex: 23 / F ADM Date: 11/22/23 Loc: Room: [address] [place] [address] Type: ADM IN Attending Dr: Krzysztof Montesinos [...] Sinus rhythm with sinus arrhythmia with short [place] Otherwise normal ECG No previous ECGs available Confirmed by HODAN ROBERT [facility], GEMA ([id number]) on 11/23/2023 9:57:14 AM Referred By: Electronically Signed By:GEMA SLAUGHTER MD [facility] Transcribed By: MUS Signed By Gema Slaughter MD, [facility] 11/23/23 0957 Normal [facility] ETHANOLon 11-22-2023 Ethanol [Mass/Vol] mg/dL Normal 0.00-0.08 [facility] Comment on above: Result Comment: This report is intended for use in clinical monitoring or management of patients. Performed By: #### C NIKA JAEGER, 86343-0 #### [facility] ([id number]) [address] [place] [address] 04673 HCG ( test) Ql (U)o n 11-22-2023 Beta HCG ( test) Ql (U) Negative Normal NEG [facility] Comment on above: Performed By: #### 2 106-3 #### [facility] ([id number]) [address] [place] [address] 45283 TSH Qnon 11-22-2023 TSH 1.42 uIU/mL Normal 0.49-4.67 [facility] Comment on above: Performed By: #### C MIL [facility], 85987-4 #### [facility] ([id number]) [address] [place] [address] 87728 URN MACROSCOPIC NURon 2023 BILIRUBIN BAO Negative Normal NEG [facility] Comment on above: Performed By: #### N UM #### [facility] ([id number]) [address] [place] [address] 11288 BLOOD/HGB BAO Negative Normal NEG [facility] Comment on above: Performed By: #### N UM #### [facility] ([id number]) [address] [place] [address] 22243 GLUCOSE BAO Negative Normal NEG [facility] Comment on above: Performed By: #### N UM #### [facility] ([id number]) [address] [place] [address] 68414 KETONES BAO Negative Normal NEG [facility] Comment on above: Performed By: #### N UM #### [facility] ([id number]) [address] [place] [address] 68319 LEUKOCYTE ESTERASE BAO Negative Normal NEG [facility] Comment on above: Performed By: #### N UM #### [facility] ([id number]) [address] [place] [address] 82820 NITRITE BAO Negative Normal NEG [facility] Comment on above: Performed By: #### N UM #### [facility] ([id number]) [address] [place] [address] 08527 PH BAO 6.5 Normal 5.0-8.5 [facility] Comment on above: Performed By: #### N UM #### [facility] ([id number]) [address] [place] [address] 06697 PROTEIN BAO Negative Normal NEG [facility] Comment on above: Performed By: #### N UM #### [facility] ([id number]) [address] [place] [address] 44831 SPECIFIC GRAVITY BAO 1.010 Normal 1.003-1.035 [facility] Comment on above: Performed By: #### N UM #### [facility] ([id number]) [address] [place] [address] [place] [address] UROBILINOGEN BAO 0.2 eu/dL Normal <1.1 [facility] Comment on above: Performed By: #### N UM #### [facility] ([id number]) [address] [place] [address] 82632 HCG.beta subunit IA 3rd IS Q non 08-29-2023 SERUM B HCG,3RD I.S. <5 Normal [facility] Comment on above: Result [...] neoplasms. Performed By: #### 2 0415-6 #### [facility] ([id number]) [address] [place] [address], [address] [place] [address] HCG.beta subunit IA 3rd IS Q non 08-22-2023 HCG.beta subunit Qn 11 m[IU]/mL Normal [facility] Comment on above: Result [...] neoplasms. Performed By: #### 2 0415-6 #### [facility] ([id number]) [address] [place] [address], [address] [place] [address] HCG.beta subunit IA 3rd IS Q non 08-13-2023 HCG.beta subunit Qn 60 m[IU]/mL Normal [facility] Comment on above: Result [...] neoplasms. Performed By: #### 2 0415-6 #### [facility] ([id number]) [address] [place] [address] [address] [place] [address] HCG.beta subunit IA 3rd IS Q non 08-06-2023 HCG.beta subunit Qn 394 m[IU]/mL Normal [facility] Comment on above: Result Comment: NEW [...] neoplasms. Performed By: #### 2 0415-6 #### [facility] ([id number]) [address] [place] [address], [address] [place] [address] CBC AND AUTO DIFFon 07-30-19 24 ABSOLUTE BASOPHIL 0.0 X10E9/L Normal 0.0-0.2 [facility] Comment on above: Performed By: #### Manish JAEGER CMP, #### [facility] ([id number]) [address] [place] [address] ABSOLUTE NEUTROPHIL 6.4 X10E9/L Normal 1.5-6.6 [facility] Comment on above: Performed By: #### Manish JAEGER CMP, #### [facility] ([id number]) [address] [place] [address] 32304 Basophils/100 WBC (Bld) 0.5 % Normal [facility] Comment on above: Performed By: #### Manish JAEGER [facility], #### [facility] ([id number]) [address] [place] [address] Eosinophils (Bld) [#/Vol] 0.0 10*3/uL Normal 0.0-0.4 [facility] Comment on above: Performed By: #### Manish JAEGER [facility], #### [facility] ([id number]) [address] [place] [address] 67479 Eosinophils/100 WBC (Bld) 0.2 % Normal [facility] Comment on above: Performed By: #### Manish JAEGER [facility], #### [facility] ([id number]) [address] [place] [address]77[address] Erythrocyte distribution width (RBC) [Ratio] 14.2 % Normal 11.5-15.0 [facility] Comment on above: Performed By: #### Manish JAEGER CMP, #### [facility] ([id number]) [address] [place] [address] Hematocrit (Bld) [Volume fraction] 43.4 % Normal 35-47 [facility] Comment on above: Performed By: #### C NIKA JAEGER, #### [facility] ([id number]) [address] [place] [address] Hemoglobin (Bld) [Mass/Vol] 14.9 g/dL Normal 11.7-15.5 [facility] Comment on above: Performed By: #### Manish JAEGER CMP, #### [facility] ([id number]) [address] [place] [address]276 Lymphocytes (Bld) [#/Vol] 1.4 10*3/uL Normal 1.0-3.5 [facility] Comment on above: Performed By: #### Manish JAEGER CMP, #### [facility] ([id number]) [address] [place] [address] 37661 Lymphocytes/100 WBC (Bld) 16.3 % Normal [facility] Comment on above: Performed By: #### Manish JAEGER CMP, #### [facility] ([id number]) [address] [place] [address] 26237 MCH (RBC) [Entitic mass] 30.9 pg Normal 27-34 [facility] Comment on above: Performed By: #### Manish JAEGER CMP, #### [facility] ([id number]) [address] [place] [address] [place] [address] MCHC (RBC) [Mass/Vol] 34.4 g/dL Normal 32-36 [facility] Comment on above: Performed By: #### Manish JAEGER CMP, #### [facility] ([id number]) [address] [place] [address] 37361 MCV (RBC) [Entitic vol] 90 fL Normal 80-100 [facility] Comment on above: Performed By: #### C MIL, CMP, #### [facility] ([id number]) [address] [place] [address] 36719 Monocytes (Bld) [#/Vol] 0.7 10*3/uL Normal 0-0.9 [facility] Comment on above: Performed By: #### C MIL, CMP, #### [facility] ([id number]) [address] [place] [address] 12600 Monocytes/100 WBC (Bld) 7.8 % Normal [facility] Comment on above: Performed By: #### Manish JAEGER, CMP, #### [facility] ([id number]) [address] [place] [address] 36821 Neutrophils/100 WBC (Bld) 75.2 % Normal [facility] Comment on above: Performed By: #### Manish BCA, CMP, #### [facility] ([id number]) [address] [place] [address] 59872 Platelet mean volume (Bld) [Entitic vol] 8.5 fL Normal 7-12 [facility] Comment on above: Performed By: #### C MIL, CMP, #### [facility] ([id number]) [address] [place] [address] 75603 Platelets (Bld) [#/Vol] 188 10*3/uL Normal 150-450 [facility] Comment on above: Performed By: #### Manish BCA, CMP, #### [facility] ([id number]) [address] [place] [address] 09832 RBC COUNT 4.83 X10E12/L Normal 3.80-5.20 [facility] Comment on above: Performed By: #### Manish BCA, CMP, #### [facility] ([id number]) [address] [place] [address] 54009 WBC (Bld) [#/Vol] 8.5 10*3/uL Normal 4.0-11.0 [facility] Comment on above: Performed By: #### C BCA, CMP, #### [facility] ([id number]) [address] [place] [address]250 COMPREHENSIVE METABOLIC PANE Thomas 07-30-2023 Albumin [Mass/Vol] 4.7 g/dL Normal 3.2-5.3 [facility] Comment on above: Performed By: #### C MIL, CMP, #### [facility] ([id number]) [address] [place] [address] 08123 ALP [Catalytic activity/Vol] 57 U/L Normal 39-130 [facility] Comment on above: Performed By: #### C BCA, CMP, #### [facility] ([id number]) [address] [place] [address] 14487 ALT [Catalytic activity/Vol] 12 U/L Normal 0-31 [facility] Comment on above: Performed By: #### C BCA, CMP, #### [facility] ([id number]) [address] [place] [address] 69687 Anion gap [Moles/Vol] 6 mmol/L Normal 5-15 [facility] Comment on above: Performed By: #### C BCA, CMP, #### [facility] ([id number]) [address] [place] [address] 90520 AST [Catalytic activity/Vol] 18 U/L Normal 0-41 [facility] Comment on above: Performed By: #### C BCA, CMP, #### [facility] ([id number]) [address] [place] [address] Bilirubin [Mass/Vol] 0.8 mg/dL Normal 0.3-1.2 [facility] Comment on above: Performed By: #### C NIKA JAEGER, #### [facility] ([id number]) [address] [place] [address] 25777 Calcium [Mass/Vol] 9.4 mg/dL Normal 8.5-10.5 [facility] Comment on above: Performed By: #### C NIKA JAEGER, #### [facility] ([id number]) [address] [place] [address] 62094 Chloride [Moles/Vol] 107 mmol/L Normal 98-109 [facility] Comment on above: Performed By: #### C NIKA JAEGER, #### [facility] ([id number]) [address] [place] [address] 40822 CO2 [Moles/Vol] 23 mmol/L Normal 22-32 [facility] Comment on above: Performed By: #### C NIKA JAEGER, #### [facility] ([id number]) [address] [place] [address] 71757 Creatinine [Mass/Vol] 0.63 mg/dL Normal 0.40-1.00 [facility] Comment on above: Result Comment: METH OD TRACEABLE TO IDMS STANDARD Performed By: #### C NIKA JAEGER, #### [facility] ([id number]) [address] [place] [address] [place] [address] eGFR (CKD-EPI) NON-RACE DEPENDENT >90 Normal >59 [facility] Comment on above: Result Comment: Reported eGFR is based on the CKD-EPI 2020 equation that does not use a race coefficient. Performed By: #### C NIKA JAEGER, #### [facility] ([id number]) [address] [place] [address] Glucose [Mass/Vol] 92 mg/dL Normal 65-99 [facility] Comment on above: Performed By: #### C MIL [facility], #### [facility] ([id number]) [address] [place] [address] 89345 Potassium [Moles/Vol] 3.5 mmol/L Normal 3.5-5.0 [facility] Comment on above: Performed By: #### Manish JAEGER [facility], #### [facility] ([id number]) [address] [place] [address] 20638 Protein [Mass/Vol] 7.8 g/dL Normal 6.0-8.0 [facility] Comment on above: Performed By: #### Manish JAEGER CMP, #### [facility] ([id number]) [address] [place] [address] 79132 Sodium [Moles/Vol] 136 mmol/L Normal 134-146 [facility] Comment on above: Performed By: #### Manish JAEGER [facility], 57732-9 #### [facility] ([id number]) [address] [place] [address] 25014 Urea nitrogen [Mass/Vol] 12 mg/dL Normal 5-23 [facility] Comment on above: Performed By: #### Manish JAEGER [facility], #### [facility] ([id number]) [address] [place] [address] 78830 HCG.beta subunit IA 3rd IS Q non 07-30-2023 [place] [address] m[IU]/mL Normal [facility] Comment on above: Result Comment: [...] nontrophoblastic neoplasms. Performed By: #### C MIL, [facility], 08245-4 #### [facility] ([id number]) [address] [place] [address], [place] [address] US PREG LESS THAN 14 WKS WIT [...] Rodrigues MD on 07/30/2023 2:51 PM Normal [facility] US ABDOMEN LIMITEDon 024 US ABDOMEN LIMITED EXAMINATION: LIMITED ABDOMINAL ULTRASOUND 05/29/2023 9:27 am COMPARISON: None. HISTORY: ORDERING SYSTEM PROVIDED HISTORY: Abdominal mass, right lower quadrant TECHNOLOGIST PROVIDED HISTORY: This procedure can be scheduled via [employer]. Access your [employer] account by visiting [employer]. RUQ lump with straining or sitting up. [...] Zay Boyce MD 05/29/23 Final result Normal [facility] CBC WITH DIFFon 02-24-2023 ABS BASOPHIL 0.04 x10^3ul Normal (0.00 - 0.16) [facility] Comment on above: Order Comment: FACIL ITY: [facility] [id number] Performed By: #### C BC/D, CHEM-C, TSHT34, B12+, MG #### [facility] [address] [facility], [address] ABS EOSINOPHIL 0.08 x10^3ul Normal (0.00 - 0.40) [facility] Comment on above: Order Comment: FACIL ITY: [facility] [id number] Performed By: #### C BC/D, CHEM-C, TSHT34, B12+, MG #### [facility] [address] [facility], [address] ABS IMMATURE GRANS 0.01 x10^3ul Normal (0.00 - 0.11) [facility] Comment on above: Order Comment: FACIL ITY: [facility] [id number] Performed By: #### C BC/D, CHEM-C, TSHT34, B12+, MG #### [facility] [address] [facility], [address] ABS LYMPHOCYTE 2.28 x10^3ul Normal (0.96 - 5.40) [facility] Comment on above: Order Comment: FACIL ITY: [facility] [id number] Performed By: #### C BC/D, CHEM-C, TSHT34, B12+, MG #### [facility] [address] [place], [address] ABS MONOCYTE 0.70 x10^3ul Normal (0.10 - 1.00) [facility] Comment on above: Order Comment: FACIL ITY: [facility] [id number] Performed By: #### C BC/D, CHEM-C, TSHT34, B12+, MG #### [facility] [address] [place], [address] ABS NEUTROPHIL 3.91 x10^3ul Normal (1.50 - 7.00) [facility] Comment on above: Order Comment: FACIL ITY: [facility] [id number] Performed By: #### C BC/D, CHEM-C, TSHT34, B12+, MG #### [facility] [address] [place], [address] Basophils/100 WBC (Bld) 0.6 % Normal () [facility] Comment on above: Order Comment: FACIL ITY: [facility] [id number] Performed By: #### C BC/D, CHEM-C, TSHT34, B12+, MG #### [facility] [address] [place], [address] Eosinophils/100 WBC (Bld) 1.1 % Normal () [facility] Comment on above: Order Comment: FACIL ITY: [facility] [id number] Performed By: #### C BC/D, CHEM-C, TSHT34, B12+, MG #### [facility] [address] [place], [address] Hematocrit (Bld) [Volume fraction] 46.1 % Normal (37.0 - 47.0) [facility] Comment on above: Order Comment: FACIL ITY: [facility] [id number] Performed By: #### C BC/D, CHEM-C, TSHT34, B12+, MG #### [facility] [address] [place], [address] Hemoglobin (Bld) [Mass/Vol] 15.3 g/dL Normal (12.0 - 16.0) [facility] Comment on above: Order Comment: FACIL ITY: [facility] [id number] Performed By: #### C BC/D, CHEM-C, TSHT34, B12+, MG #### [facility] [address] [place], [address] IMMATURE GRANS (IG) 0.1 % Normal () [facility] Comment on above: Order Comment: FACIL ITY: [facility] [id number] Performed By: #### C BC/D, CHEM-C, TSHT34, B12+, MG #### [facility] [address] [place], [address] LYMPS 32.5 % Normal () [facility] Comment on above: Order Comment: FACIL ITY: [facility] [id number] Performed By: #### C BC/D, CHEM-C, TSHT34, B12+, MG #### [place] [facility] [address] [place], [address] MCH (RBC) [Entitic mass] 30.5 pg Normal (27 .0 - 33.0) [facility] Comment on above: Order Comment: FACIL ITY: [facility] [id number] Performed By: #### C BC/D, CHEM-C, TSHT34, B12+, MG #### [place] [facility] [address] [place], [address] MCHC (RBC) [Mass/Vol] 33.2 g/dL Normal (30.0 - 37.0) [facility] Comment on above: Order Comment: FACIL ITY: [facility] [id number] Performed By: #### C BC/D, CHEM-C, TSHT34, B12+, MG #### [place] [facility] [address] [place], [address] MCV (RBC) [Entitic vol] 92.0 fL Normal (81. 0 - 99.0) [facility] Comment on above: Order Comment: FACIL ITY: [facility] [id number] Performed By: #### C BC/D, CHEM-C, TSHT34, B12+, MG #### [facility] [address] [place], [address] MONOS 10.0 % Normal () [facility] Comment on above: Order Comment: FACIL ITY: [facility] [id number] Performed By: #### C BC/D, CHEM-C, TSHT34, B12+, MG #### [facility] [address] [place], [address] PLT 201 x10^3ul Normal (130 - 400) [facility] Comment on above: Order Comment: FACIL ITY: [facility] [id number] Performed By: #### C BC/D, CHEM-C, TSHT34, B12+, MG #### [place] [facility] [address] [place], [address] RBC 5.01 x10^6ul Normal (4.20 - 5.40) [facility] Comment on above: Order Comment: FACIL ITY: [facility] [id number] Performed By: #### C BC/D, CHEM-C, TSHT34, B12+, MG #### [facility] [address] [place], [address] RDW-SD 46.7 fl Normal (37.0 - 49.0) [facility] Comment on above: Order Comment: FACIL ITY: [facility] [id number] Performed By: #### C BC/D, CHEM-C, TSHT34, B12+, MG #### [place] [facility] [address] [place], [address] SEGS 55.7 % Normal () [facility] Comment on above: Order Comment: FACIL ITY: [facility] [id number] Performed By: #### C BC/D, CHEM-C, TSHT34, B12+, MG #### [facility] [address] [place], [address] WBC 7.02 x10^3ul Normal (3.80 - 10.60) [facility] Comment on above: Order Comment: FACIL ITY: [facility] [id number] Performed By: #### C BC/D, CHEM-C, TSHT34, B12+, MG #### [facility] [address] [place], [address] COMP METABOLIC PANEL W/GFRon 02-24-2023 Albumin [Mass/Vol] 4.8 g/dL Normal (3.5 - 5.0) [facility] Comment on above: Performed By: #### C BC/D, CHEM-C, TSHT34, B12+, MG #### [facility] [address] [place], [address] ALK PHOS 63 U/L Normal (38 - 126) [facility] Comment on above: Performed By: #### C BC/D, CHEM-C, TSHT34, B12+, MG #### [facility] [address] [place], [address] ALT [Catalytic activity/Vol] 18 U/L Normal (1 - 35) [facility] Comment on above: Performed By: #### C BC/D, CHEM-C, TSHT34, B12+, MG #### [facility] [address] [place], [address] AST [Catalytic activity/Vol] 22 U/L Normal (15 - 46) [facility] Comment on above: Performed By: #### C BC/D, CHEM-C, TSHT34, B12+, MG #### [facility] [address] [place], [address] Bilirubin [Mass/Vol] 1.0 mg/dL Normal (0.2 - 1.3) [facility] Comment on above: Performed By: #### C BC/D, CHEM-C, TSHT34, B12+, MG #### [facility] [address] [place], [address] Calcium [Mass/Vol] 9.6 mg/dL Normal (8.6 - 10.6) [facility] Comment on above: Performed By: #### C BC/D, CHEM-C, TSHT34, B12+, MG #### [facility] [address] [place], [address] Chloride [Moles/Vol] 105 mmol/L Normal (98 - 107) [facility] Comment on above: Performed By: #### C BC/D, CHEM-C, TSHT34, B12+, MG #### [facility] [address] [place], [address] CO2 [Moles/Vol] 24 mmol/L Normal (22 - 30) [facility] Comment on above: Performed By: #### C BC/D, CHEM-C, TSHT34, B12+, MG #### [facility] [address] [place], [address] Creatinine [Mass/Vol] 0.67 mg/dL Normal (0.52 - 1.04) [facility] Comment on above: Performed By: #### C BC/D, CHEM-C, TSHT34, B12+, MG #### [facility] [address] [place], [address] GFR- AMER 132.0 ML/M1.7 Normal (60.0 - 140.1) [facility] Comment on above: Performed By: #### C BC/D, CHEM-C, TSHT34, B12+, MG #### [facility] [address] [place], [address] GFR-NON AFRIC-AMER 109.1 ML/M1.7 Normal (60.0 - 115.8) [facility] Comment on above: Performed By: #### C BC/D, CHEM-C, TSHT34, B12+, MG #### [facility] [address] [place], [address] Glucose [Mass/Vol] 76 mg/dL Normal (74 - 106) [facility] Comment on above: Performed By: #### C BC/D, CHEM-C, TSHT34, B12+, MG #### [facility] [address] [place], [address] Potassium [Moles/Vol] 4.0 mmol/L Normal (3.5 - 5.1) [facility] Comment on above: Performed By: #### C BC/D, CHEM-C, TSHT34, B12+, MG #### [facility] [address] [place], [address] Protein [Mass/Vol] 7.5 g/dL Normal (6.3 - 8.2) [facility] Comment on above: Performed By: #### C BC/D, CHEM-C, TSHT34, B12+, MG #### [facility] [address] [place], [address] Sodium [Moles/Vol] 143 mmol/L Normal (137 - 145) [facility] Comment on above: Performed By: #### C BC/D, CHEM-C, TSHT34, B12+, MG #### [facility] [address] [place], [address] Urea nitrogen [Mass/Vol] 12 mg/dL Normal (7 - 17) [facility] Comment on above: Performed By: #### C BC/D, CHEM-C, TSHT34, B12+, MG #### [facility] [address] [place], [address] MAGNESIUMon 02-24-2023 Magnesium [Mass/Vol] 1.8 mg/dL Normal (1.6 - 2.3) [facility] Comment on above: Performed By: #### C BC/D, CHEM-C, TSHT34, B12+, MG #### [facility] [address] [place], [address] T3 FREE, T4 FREE AND TSHon 1 Free T3 [Mass/Vol] 5.32 pg/mL Normal (2.32 - 6.09) [facility] Comment on above: Performed By: #### C BC/D, CHEM-C, TSHT34, B12+, MG #### [facility] [address] [place], [address] Free T4 [Mass/Vol] 1.45 ng/dL Normal (0.78 - 2.35) [facility] Comment on above: Performed By: #### C BC/D, CHEM-C, TSHT34, B12+, MG #### [facility] [address] [place], [address] TSH Qn 1.43 m[IU]/L Normal (0.470 - 4.680) [facility] Comment on above: Performed By: #### C BC/D, CHEM-C, TSHT34, B12+, MG #### [facility] [address] [place], [address] VIT B12 AND FOLATEon 023 Cobalamin (Vitamin B12) [Mass/Vol] 653 pg/mL Normal (239 - 931) [facility] Comment on above: Performed By: #### C BC/D, CHEM-C, TSHT34, B12+, MG #### [facility] [address] [place], [address] FOLIC ACID >20.0 High (2.8 - 20.0) [facility] Comment on above: Performed By: #### C BC/D, CHEM-C, TSHT34, B12+, MG #### [facility] [address] [facility] [place] [address] HCG, ,Urineon 11-14 Beta HCG ( test) Ql (U) Negative Normal NEG [facility] Comment on above: Performed By: #### U HCG #### [facility] [address] [place] [address] Carpet Or Rug Layer Helper: Natasha Bragg MD Surgical Pathologyon 023 Surgical Pathology (NOTE) Path Number: [id number] -- Diagnosis -- TERMINAL ILEUM, BIOPSY: -UNREMARKABLE SMALL INTESTINAL MUCOSA WITH NO SIGNIFICANT INFLAMMATION. Natasha Bragg M.D Electronically Signed Out marisol11/18/2022 Clinical Information Pre-Op Diagnosis: HEMORRHAGE OF RECTUM AND ANUS Operative Findings: TERMINAL ILEUM BIOPSIES Operation Performed: COLONOSCOPY BIOPSY/STOMA cd Source of Specimen A: TERMINAL ILEUM BIOPSY Gross Description JORDAN COLLADO TERMINAL ILEUM BIOPSIES Received in formalin is one soft montano fragment, 0.3 x 0.2 x 0.1 cm. Entirely 1cs. jj cd Microscopic Description Microscopic examination performed. Processing Lab: [address] [address] Interpretation Performed at [address] [address] SURGICAL PATHOLOGY CONSULTATION Patient Name: MEGAN COLLADO Keri [facility] Rec: [id number] [facility] ANATOMIC PATHOLOGY [address] [place], [place] [address] Normal [facility] Comment on above: Performed By: #### P PPVS #### [address] [place] [address] Carpet [employer] Rug Layer Helper: Alex Deleon MD Calprotectin, Fecalon 2022 Calprotectin, Fecal 7 ug/g Normal <=49 [facility] Comment on above: Result Comment: (NOT E) REFERENCE INTERVAL: Calprotectin, Fecal by Immunoassay Less than 50 ug/g.........Normal 50-120 ug/g...............Borderline elevated, test should be re-evaluated in 4-6 weeks. 121 ug/g or greater.......Elevated Performed By: [facility] [address] [place] [address] Lamination Assembler: Louie Kidd MD, PhD Performed By: #### A CALPF #### [facility] [address] [place] [address] Carpet Or Rug Layer Helper: Jesu Farley MD Celiac Disease Panelon 10-24 Gliadin Deam Pep IgA 0.5 U/mL Normal <7.0 [facility] Comment on above: Result Comment: CELIAC INTERPRETATION <7.0 Negative 7.0-10.0 Equivocal >10.0 Positive units: U/mL Performed By: #### C ELP #### [address] [id number] Carpet [employer] Rug Layer Helper: Alex Deleon MD Gliadin Deam Pep IgG <0.4 Normal <7.0 [facility] Comment on above: Result Comment: CELIAC INTERPRETATION <7.0 Negative 7.0-10.0 Equivocal >10.0 Positive units: U/mL Performed By: #### C ELP #### [address] [id number] [employer]: Alex Deleon MD Tiss Transglutam IgA <0.1 Normal <7.0 [facility] Comment on above: Result Comment: CELIAC INTERPRETATION <7.0 Negative 7.0-10.0 Equivocal >10.0 Positive units: U/mL Performed By: #### C ELP #### [address] [id number] [employer]: Alex Deleon MD IgA [Mass/Vol] 132 mg/dL Normal [address] [facility] Comment on above: Performed By: #### C ELP #### [address] [address] [place] [address] Carpet Or Rug Layer Helper: Alex Deleon MD AEROBIC CULTURE AND SENSITIV ITYon 10-07-2022 AMPICILLIN N/A Normal () [facility] Comment on above: Order Comment: FACIL ITY: [facility] [id number] Performed By: #### C -M75 #### [facility] [address] [place], [address] CEFOXITIN SCREEN Negative Normal () [facility] Comment on above: Order Comment: [facility]IL [facility]: [facility] [id number] Performed By: #### C -M75 #### [facility] [address] [place], [address] CIPROFLOXACIN S Normal () [facility] Comment on above: Order Comment: [facility]IL [facility]: [facility] [id number] Performed By: #### C -M75 #### [facility] [address] [place], [address] CLINDAMYCIN S Normal () [facility] Comment on above: Order Comment: [facility]ACIL ITY: [facility] [id number] Performed By: #### C -M75 #### [facility] [address] [place], [address] CULTURE, AEROBIC SENS Normal (SEE - REPOR) [facility] Comment on above: Order Comment: FACIL ITY: [facility] [id number] Performed By: #### C -M75 #### [facility] [address] [place], [address] DAPTOMYCIN S Normal () [facility] Comment on above: Order Comment: FACIL ITY: [facility] [id number] Performed By: #### C -M75 #### [facility] [address] [place], [address] DOXYCYCLINE I Normal () [facility] Comment on above: Order Comment: FACIL ITY: [facility] [id number] Performed By: #### C -M75 #### [facility] [address] [facility], [address] ERYTHROMYCIN R High () [facility] Comment on above: Order Comment: FACIL ITY: [facility] [id number] Performed By: #### C -M75 #### [facility] [address] [facility], [address] GENTAMICIN S Normal () [facility] Comment on above: Order Comment: FACIL ITY: [facility] [id number] Performed By: #### C -M75 #### [facility] [address] [facility], [address] GENTAMICIN HIGH LEVEL N/A Normal () [facility] on above: Order Comment: FACIL ITY: [facility] [id number] Performed By: #### C -M75 #### [facility] [address] [facility], [address] INDUCIBLE CLINDAMYCIN RESISTANCE Negative Normal () [facility] Comment on above: Order Comment: FACIL ITY: [facility] [id number] Performed By: #### C -M75 #### [facility] [address] [facility], [address] LEVOFLOXACIN S Normal () [facility] Comment on above: Order Comment: FACIL ITY: [facility] [id number] Performed By: #### C -M75 #### [facility] [address] [facility], [address] LINEZOLID S Normal () [facility] Comment on above: Order Comment: FACIL ITY: [facility] [id number] Performed By: #### C -M75 #### [facility] [address] [place], [address] MOXIFLOXACIN S Normal () [facility] Comment on above: Order Comment: FACIL ITY: [facility] [id number] Performed By: #### C -M75 #### [facility] [address] [place], [address] NITROFURANTOIN S Normal () [facility] Comment on above: Order Comment: FACIL ITY: [facility] [id number] Performed By: #### C -M75 #### [facility] [address] [place], [address] OXACILLIN S Normal () [facility] Comment on above: Order Comment: FACIL ITY: [facility] [id number] Performed By: #### C -M75 #### [facility] [address] [facility], [address] REPORT STATUS FINAL Normal () [facility] Comment on above: Order Comment: [facility]IL [facility] [id number] Result Comment: SOUR CE: NO SOURCE INDICATED GROWTH: FEW ISOLATE: STAPHYLOCOCCUS EPIDERMIDIS SENSITIVITY INTERPRETATION S = SUSCEPTIBLE R = RESISTANT I = INTERMEDIATE N/A = NOT APPLICABLE Performed By: #### C -M75 #### [facility] [address] [facility], [address] RIFAMPICIN S Normal () [facility] Comment on above: Order Comment: FACIL ITY: [facility] [id number] Performed By: #### C -M75 #### [facility] [address] [place], [address] STREPTOMYCIN HIGH LEVEL N/A Normal () [facility] Comment on above: Order Comment: FACIL ITY: [facility] [id number] Performed By: #### C -M75 #### [facility] [address] [place], [address] TETRACYCLINE R High () [facility] Comment on above: Order Comment: FACIL ITY: [facility] [id number] Performed By: #### C -M75 #### [facility] [address] [place], [address] TIGECYCLINE S Normal () [facility] Comment on above: Order Comment: FACIL ITY: [facility] [id number] Performed By: #### C -M75 #### [facility] [address] [place], [address] TRIMETH/SULFA S Normal () [facility] Comment on above: Order Comment: FACIL ITY: [facility] [id number] Performed By: #### C -M75 #### [facility] [address] [facility], [address] VANCOMYCIN S Normal () [facility] Comment on above: Order Comment: FACIL ITY: [facility] [id number] Performed By: #### C -M75 #### [facility] [address] [facility], [address] BNPon 08-07-2022 Natriuretic peptide B (Bld) [Mass/Vol] 23.0 pg/mL Normal <=450.0 [facility] Comment on above: Performed By: #### H STROPN, BNP, BMP #### [facility] [address] [place] [address] Dr. Anette Siddiqui CBC AUTO DIFFon 08-07-2022 BASO # 0.0 103/ul Normal 0.0-0.1 [facility] Comment on above: Performed By: #### C BC #### [facility] [address] [address] [address] Anette Siddiqui Basophils/100 WBC (Bld) 0.4 % Normal 0.2-2.0 [facility] Comment on above: Performed By: #### C BC #### [facility] [address] [place] [address] Dr. Anette Siddiqui EO # 0.1 103/ul Normal 0.0-0.7 [facility] Comment on above: Performed By: #### C BC #### [facility] [address] [place] [address] Dr. Anette Siddiqui Eosinophils/100 WBC (Bld) 1.0 % Normal 0.9-7.0 [facility] Comment on above: Performed By: #### C BC #### [facility] [address] [place] [address] Dr. Anette Siddiqui Erythrocyte distribution width (RBC) [Ratio] 13.3 % Normal 11.0-15.0 [facility] Comment on above: Performed By: #### C BC #### [facility] [address] [place] [address] Dr. Anette Siddiqui Hematocrit (Bld) [Volume fraction] 42.2 % Normal 36.0-48.0 [facility] Comment on above: Performed By: #### C BC #### [facility] [address] [place] [address] Dr. Anette Siddiqui Hemoglobin (Bld) [Mass/Vol] 14.2 g/dL Normal 12.0-16.0 [facility] Comment on above: Performed By: #### C BC #### [facility] [address] [place] [address] Dr. Anette Siddiqui IG # 0.02 10e3/ul Normal 0.00-0.03 [facility] Comment on above: Performed By: #### C BC #### [facility] [address] [place] [address] Dr. Anette Siddiqui IG % 0.3 % Normal 0.0-0.5 [facility] Comment on above: Performed By: #### C BC #### [facility] [address] [place] [address] Dr. Anette Siddiqui LYMPH # 1.9 103/ul Normal 1.2-3.8 [facility] Comment on above: Performed By: #### C BC #### [facility] [address] [place] [address] Dr. Anette Siddiqui Lymphocytes/100 WBC (Bld) 24.8 % Normal 20.5-60.0 [facility] Comment on above: Performed By: #### C BC #### [facility] [address] [place] [address] Dr. Anette Siddiqui MANUAL DIFF REQ NO Normal [facility] Comment on above: Performed By: #### C BC #### [facility] [address] [place] [address] Dr. Anette Siddiqui MCH (RBC) [Entitic mass] 30.5 pg Normal 26.7-34.0 [facility] Comment on above: Performed By: #### C BC #### [facility] [address] [place] [address] Dr. Anette Siddiqui MCHC (RBC) [Mass/Vol] 33.6 g/dL Normal 29.9-35.2 [facility] Comment on above: Performed By: #### C BC #### [facility] [address] [place] [address] Dr. Anette Siddiqui MCV (RBC) [Entitic vol] 90.8 fL Normal 81.0-99.0 [facility] Comment on above: Performed By: #### C BC #### [facility] [address] [place] [address] Dr. Anette Siddiqui MONO # 0.6 103/ul Normal 0.3-0.8 [facility] Comment on above: Performed By: #### C BC #### [facility] [address] [place] [address] Dr. Anette Siddiqui Monocytes/100 WBC (Bld) 7.7 % Normal 1.7-12.0 [facility] Comment on above: Performed By: #### C BC #### [facility] [address] [place] [address] Dr. Anette Siddiqui NEUT # 5.0 103/ul Normal 1.4-6.5 [facility] Comment on above: Performed By: #### C BC #### [facility] [address] [place] [address] Dr. Anette Siddiqui Neutrophils/100 WBC (Bld) 65.8 % Normal 43.0-75.0 [facility] Comment on above: Performed By: #### C BC #### [facility] [address] [place] [address] Dr. Anette Siddiqui Platelet mean volume (Bld) [Entitic vol] 10.3 fL Normal 9.5-13.5 [facility] Comment on above: Performed By: #### C BC #### [facility] [address] [address] [address] Anette Siddiqui PLT 186 103/ul Normal 150-450 [facility] Comment on above: Performed By: #### C BC #### [facility] [address] [place] [address] Dr. Anette Siddiqui RBC 4.65 106/ul Normal 4.20-5.40 [facility] Comment on above: Performed By: #### C BC #### [facility] [address] [place] [address] Dr. Anette Siddiqui WBC 7.6 103/ul Normal 4.0-11.0 [facility] Comment on above: Performed By: #### C BC #### [facility] [address] [place] [address] Dr. Anette Siddiqui PREG HCG QUALon 08-07-2022 , QUAL Negative Normal NEGATIVE [facility] Comment on above: Performed By: #### P TT, PT #### [facility] [address] [place] [address] Dr. Anette Siddiqui PROF CHEM 8 (BAS METB)on Anion gap [Moles/Vol] 14.8 mmol/L Normal [facility] Comment on above: Performed By: #### H STROPN, BNP, BMP #### [facility] [address] [place] [address] Dr. Anette Siddiqui Calcium [Mass/Vol] 8.8 mg/dL Normal 8.5-10.1 [facility] Comment on above: Performed By: #### H STROPN, BNP, BMP #### [facility] [address] [address] [address] Anette Siddiqui Chloride [Moles/Vol] 105 mmol/L Normal 98-107 [facility] Comment on above: Performed By: #### H STROPN, BNP, BMP #### [facility] [address] [address] [address] Anette Siddiqui CO2 [Moles/Vol] 24.0 mmol/L Normal 21.0-32.0 [facility] Comment on above: Performed By: #### H STROPN, BNP, BMP #### [facility] [address] [address] [address] Anette Siddiqui Creatinine [Mass/Vol] 0.71 mg/dL Normal 0.55-1.02 [facility] Comment on above: Performed By: #### H STROPN, BNP, BMP #### [facility] [address] [address] [address] Anette Siddiqui EGFR-AF SERBIAN >60 Normal >=60 [facility] Comment on above: Performed By: #### H STROPN, BNP, BMP #### [facility] [address] [address] [address] Anette Siddiqui EGFR-NON AF SERBIAN >60 Normal >=60 [facility] Comment on above: Performed By: #### H STROPN, BNP, BMP #### [facility] [address] [address] [address] Anette Siddiqui Glucose [Mass/Vol] 99 mg/dL Normal 74-106 [facility] Comment on above: Performed By: #### H STROPN, BNP, BMP #### [facility] [address] [address] [address] Anette Siddiqui Potassium [Moles/Vol] 3.8 mmol/L Normal 3.5-5.1 [facility] Comment on above: Performed By: #### H STROPN, BNP, BMP #### [facility] [address] [address] [address] Anette Siddiqui Sodium [Moles/Vol] 140 mmol/L Normal 136-145 [facility] Comment on above: Performed By: #### H STROPN, BNP, BMP #### [facility] [address] [address] [address] Anette Siddiqui Urea nitrogen [Mass/Vol] 15.0 mg/dL Normal 7.0-18.0 [facility] Comment on above: Performed By: #### H STROPN, BNP, BMP #### [facility] [address] [address] [address] Anette Siddiqui Urea nitrogen/Creatinine [Mass ratio] 21.1 mg/mg Normal [facility] Comment on above: Performed By: #### H STROPN, BNP, BMP #### [facility] [address] [place] [address] Dr. Anette Siddiqui TROPONIN, HIGH SENSITIVITYon 08-07-2022 HSTROP <4.0 Normal 4.0-51.3 [facility] Comment on above: Result Comment: CUT- OFF POINTS HAVE BEEN ESTABLISHED BASED ON THE FOURTH UNIVERSAL DEFINITIONS OF MYOCARDIAL INFARCTION. THE UPPER REFERENCE LIMIT (URL) OF TROPONIN, DEFINED THE 99TH PERCENTILE OF cTnI DISTRIBUTION IN A REFERENCE POPULATION, HAS BEEN CONFIRMED THE DECISION THRESHOLD FOR AK DIAGNOSIS. Performed By: #### H STROPN, BNP, BMP #### [facility] [address] [place] [address] Dr. Anette Siddiqui XR CHEST 1 Von [...] by: HUGO OWENS Date: 2022-08-07 15:54 Normal [facility] CBC AUTO DIFFon 02-14-2022 BASO # 0.0 103/ul Normal 0.0-0.1 [facility] Comment on above: Performed By: #### C BC #### [facility] [address] [place] [address] Dr. Anette Siddiqui Basophils/100 WBC (Bld) 0.5 % Normal 0.2-2.0 [facility] Comment on above: Performed By: #### C BC #### [facility] [address] [place] [address] Dr. Anette Siddiqui EO # 0.1 103/ul Normal 0.0-0.7 [facility] Comment on above: Performed By: #### C BC #### [facility] [address] [place] [address] Dr. Anette Siddiqui Eosinophils/100 WBC (Bld) 1.0 % Normal 0.9-7.0 [facility] Comment on above: Performed By: #### C BC #### [facility] [address] [place] [address] Dr. Anette Siddiqui Erythrocyte distribution width (RBC) [Ratio] 12.9 % Normal 11.0-15.0 [facility] Comment on above: Performed By: #### C BC #### [facility] [address] [place] [address] Dr. Anette Siddiqui Hematocrit (Bld) [Volume fraction] 43.2 % Normal 36.0-48.0 [facility] Comment on above: Performed By: #### C BC #### [facility] [address] [place] [address] Dr. Anette Siddiqui Hemoglobin (Bld) [Mass/Vol] 14.4 g/dL Normal 12.0-16.0 [facility] Comment on above: Performed By: #### C BC #### [facility] [address] [place] [address] Dr. Anette Siddiqui IG # 0.01 10e3/ul Normal 0.00-0.03 [facility] Comment on above: Performed By: #### C BC #### [facility] [address] [place] [address] Dr. Anette Siddiqui IG % 0.2 % Normal 0.0-0.5 [facility] Comment on above: Performed By: #### C BC #### [facility] [address] [place] [address] Dr. Anette Siddiqui LYMPH # 1.7 103/ul Normal 1.2-3.8 [facility] Comment on above: Performed By: #### C BC #### [facility] [address] [place] [address] Dr. Anette Siddiqui Lymphocytes/100 WBC (Bld) 29.8 % Normal 20.5-60.0 [facility] Comment on above: Performed By: #### C BC #### [facility] [address] [place] [address] Dr. Anette Siddiqui MANUAL DIFF REQ NO Normal [facility] Comment on above: Performed By: #### C BC #### [facility] [address] [place] [address] Dr. Anette Siddiqui MCH (RBC) [Entitic mass] 30.4 pg Normal 26.7-34.0 [facility] Comment on above: Performed By: #### C BC #### [facility] [address] [place] [address] Dr. Anette Siddiqui MCHC (RBC) [Mass/Vol] 33.3 g/dL Normal 29.9-35.2 [facility] Comment on above: Performed By: #### C BC #### [facility] [address] [place] [address] Dr. Anette Siddiqui MCV (RBC) [Entitic vol] 91.1 fL Normal 81.0-99.0 [facility] Comment on above: Performed By: #### C BC #### [facility] [address] [place] [address] Dr. Anette Siddiqui MONO # 0.5 103/ul Normal 0.3-0.8 [facility] Comment on above: Performed By: #### C BC #### [facility] [address] [place] [address] Dr. Anette Siddiqui Monocytes/100 WBC (Bld) 9.1 % Normal 1.7-12.0 [facility] Comment on above: Performed By: #### C BC #### [facility] [address] [place] [address] Dr. Anette Siddiqui NEUT # 3.5 103/ul Normal 1.4-6.5 [facility] Comment on above: Performed By: #### C BC #### [facility] [address] [place] [address] Dr. Anette Siddiqui Neutrophils/100 WBC (Bld) 59.4 % Normal 43.0-75.0 [facility] Comment on above: Performed By: #### C BC #### [facility] [address] [place] [address] Dr. Anette Siddiqui Platelet mean volume (Bld) [Entitic vol] 10.1 fL Normal 9.5-13.5 [facility] Comment on above: Performed By: #### C BC #### [facility] [address] [place] [address] Dr. Anette Siddiqui PLT 198 103/ul Normal 150-450 [facility] Comment on above: Performed By: #### C BC #### [facility] [address] [place] [address] Dr. Anette Siddiqui RBC 4.74 106/ul Normal 4.20-5.40 [facility] Comment on above: Performed By: #### C BC #### [facility] [address] [place] [address] Dr. Anette Siddiqui WBC 5.8 103/ul Normal 4.0-11.0 [facility] Comment on above: Performed By: #### C BC #### [facility] [address] [place] [address] ABD/PELVIS WO CONon [...] AGUSTIN SWANN Date: 2022-02-14 13:11 Normal [facility] ER URINE PROFILEon 2 Bilirubin Ql (U) Negative Normal NEGATIVE [facility] Comment on above: Performed By: #### P TT, PT #### [facility] [address] [place] [address] Dr. Anette Siddiqui Clarity (U) CLEAR Normal CLEAR [facility] Comment on above: Performed By: #### P TT, PT #### [facility] [address] [place] [address] Dr. Anette Siddiqui Color (U) LT. YELLOW Normal YELLOW [facility] Comment on above: Performed By: #### P TT, PT #### [facility] [address] [place] [address] Dr. Anette Siddiqui ERUCARLOSD A micrscopic examination will be performed if indicated. Normal [facility] Comment on above: Performed By: #### P TT, PT #### [facility] [address] [address] [address] Anette Siddiqui Glucose Ql (U) Negative Normal NEGATIVE [facility] Comment on above: Performed By: #### P TT, PT #### [facility] [address] [address] [address] Anette Siddiqui Hemoglobin Ql (U) Negative Normal NEGATIVE [facility] Comment on above: Performed By: #### P TT, PT #### [facility] [address] [place] [address] Dr. Anette Siddiqui Ketones Ql (U) Negative Normal NEGATIVE [facility] Comment on above: Performed By: #### P TT, PT #### [facility] [address] [place] [address] Dr. Anette Siddiqui LEUKOCYTES Negative Normal NEGATIVE [facility] Comment on above: Performed By: #### P TT, PT #### [facility] [address] [place] [address] Dr. Anette Siddiqui Nitrite Ql (U) Negative Normal NEGATIVE [facility] Comment on above: Performed By: #### P TT, PT #### [facility] [address] [place] [address] Dr. Anette Siddiqui pH (U) 6.0 [pH] Normal 5-9 [facility] Comment on above: Performed By: #### P TT, PT #### [facility] [address] [place] [address] Dr. Anette Siddiqui SPEC GRAVITY 1.015 Normal 1.005-<=1.02 5 [facility] Comment on above: Performed By: #### P TT, PT #### [facility] [address] [place] [address] Dr. Anette Siddiqui UA PROTEIN Negative Normal NEGATIVE/ TRACE [facility] Comment on above: Performed By: #### P TT, PT #### [facility] [address] [place] [address] Dr. Anette Siddiqui UR MICRO IND NOT INDICATED Normal [facility] Comment on above: Performed By: #### P TT, PT #### [facility] [address] [place] [address] Dr. Anette Siddiqui Urobilinogen Qn (U) 0.2 {Shaniqua'U}/dL Normal 0.2 - 1. 0 [facility] Comment on above: Performed By: #### P TT, PT #### [facility] [address] [place] [address] Dr. Anette Siddiqui URon 02-14-2022 , QUAL Negative Normal NEGATIVE [facility] Comment on above: Performed By: #### P TT, PT #### [facility] [address] [place] [address] Dr. Anette Siddiqui PROF 14(COMP METB)on 022 Albumin [Mass/Vol] 4.2 g/dL Normal 3.4-5.0 [facility] Comment on above: Performed By: #### C MP #### [facility] [address] [place] [address] Dr. Anette Siddiqui Albumin/Globulin [Mass ratio] 1.4 {ratio} Normal [facility] Comment on above: Performed By: #### C MP #### [facility] [address] [place] [address] Dr. Anette Siddiqui ALP [Catalytic activity/Vol] 105 U/L Normal 46-116 [facility] Comment on above: Performed By: #### C MP #### [facility] [address] [place] [address] Dr. Anette Siddiqui ALT [Catalytic activity/Vol] 31 U/L Normal 14-59 [facility] Comment on above: Performed By: #### C MP #### [facility] [address] [place] [address] Dr. Anette Siddiqui Anion gap [Moles/Vol] 11.9 mmol/L Normal [facility] Comment on above: Performed By: #### C MP #### [facility] [address] [place] [address] Dr. Anette Siddiqui AST [Catalytic activity/Vol] 17 U/L Normal 15-37 [facility] Comment on above: Performed By: #### C MP #### [facility] [address] [place] [address] Dr. Anette Siddiqui Bilirubin [Mass/Vol] 0.6 mg/dL Normal 0.2-1.0 [facility] Comment on above: Performed By: #### C MP #### [facility] [address] [place] [address] Dr. Anette Siddiqui Calcium [Mass/Vol] 9.2 mg/dL Normal 8.5-10.1 [facility] Comment on above: Performed By: #### C MP #### [facility] [address] [place] [address] Dr. Anette Siddiqui Chloride [Moles/Vol] 105 mmol/L Normal 98-107 [facility] Comment on above: Performed By: #### C MP #### [facility] [address] [address] [address] Anette Siddiqui CO2 [Moles/Vol] 27.8 mmol/L Normal 21.0-32.0 [facility] Comment on above: Performed By: #### C MP #### [facility] [address] [address] [address] Anette Siddiqui Creatinine [Mass/Vol] 0.74 mg/dL Normal 0.55-1.02 [facility] Comment on above: Performed By: #### C MP #### [facility] [address] [address] [address] Anette Siddiqui EGFR-AF SERBIAN >60 Normal >=60 [facility] Comment on above: Performed By: #### C MP #### [facility] [address] [address] [address] Anette Siddiqui EGFR-NON AF SERBIAN >60 Normal >=60 [facility] Comment on above: Performed By: #### C MP #### [facility] [address] [address] [address] Anette Siddiqui Globulin (S) [Mass/Vol] 3.0 g/dL Normal T [facility] Comment on above: Performed By: #### C MP #### [facility] [address] [place] [address] Dr. Anette Siddiqui Glucose [Mass/Vol] 79 mg/dL Normal 74-106 [facility] Comment on above: Performed By: #### C MP #### [facility] [address] [address] [address] Anette Siddiqui Potassium [Moles/Vol] 3.7 mmol/L Normal 3.5-5.1 [facility] Comment on above: Performed By: #### C MP #### [facility] [address] [address] [address] Anette Siddiqui Protein [Mass/Vol] 7.2 g/dL Normal 6.4-8.2 [facility] Comment on above: Performed By: #### C MP #### [facility] [address] [place] [address] Dr. Anette Siddiqui Sodium [Moles/Vol] 141 mmol/L Normal 136-145 [facility] Comment on above: Performed By: #### C MP #### [facility] [address] [place] [address] Dr. Anette Siddiqui Urea nitrogen [Mass/Vol] 13.0 mg/dL Normal 7.0-18.0 [facility] Comment on above: Performed By: #### C MP #### [facility] [address] [place] [address] Dr. Anette Siddiqui Urea nitrogen/Creatinine [Mass ratio] 17.6 mg/mg Normal [facility] Comment on above: Performed By: #### C MP #### [facility] [address] [place] [address] Dr. Anette Siddiqui PROTIMEon 02-14-2022 INR Coag (PPP) [Relative time] 1.01 {INR} Normal [facility] Comment on above: Performed By: #### P TT, PT #### [facility] [address] [place] [address] Dr. Anette Siddiqui INR GUIDELINES SEE BELOW Normal [facility] Comment on above: Result Comment: HERB RED INR: 2.0 - 3.0 CONDITIONS NOT LISTED BELOW 2.5 - 3.5 FOR PROSTHETIC HEART VALVE REPLACEMENT 2.5 - 3.5 RECURRENT THROMBOSIS Performed By: #### P TT, PT #### [facility] [address] [place] [address] Dr. Anette Siddiqui PT Coag (PPP) [Time] 10.9 s Normal 9.0-11.6 [facility] Comment on above: Performed By: #### P TT, PT #### [facility] [address] [place] [address] Dr. Anette Siddiqui PTTon 02-14-2022 aPTT Coag (Bld) [Time] 26.9 s Normal 22.3-36.2 Th [facility] Comment on above: Performed By: #### P TT, PT #### [facility] [address] [address] [address] Anette Siddiqui Vital Signs Date Time Vital Sign Value Performing Clinician Facility 05-26-2024 14:47-0500 Body mass index (BMI) [Ratio] 24.19 kg/m2 Dasha WAGNER Work Phone: [facility] 05-26-2024 14:47-0500 Body weight 68.49 kg Dasha WAGNER Work Phone: [facility] 05-26-2024 14:47-0500 Diastolic blood pressure 66 mm[Hg] Dasha WAGNER Work Phone: [facility] 05-26-2024 14:47-0500 Systolic blood pressure 102 mm[Hg] Dasha WAGNER Work Phone: [facility] 05-06-2024 11:27-0500 Body mass index (BMI) [Ratio] 22.75 kg/m2 Pradip Lionel DO Work Phone: [facility] 05-06-2024 11:27-0500 Body weight 64.41 kg Pradip Lionel DO Work Phone: [facility] 05-06-2024 11:27-0500 Diastolic blood pressure 64 mm[Hg] Pradip Lionel DO Work Phone: [facility] 05-06-2024 11:27-0500 Systolic blood pressure 106 mm[Hg] Pradip Lionel DO Work Phone: [facility] 04-06-2024 14:14-0500 Body mass index (BMI) [Ratio] 21.95 kg/m2 Dasha WAGNER Work Phone: [facility] 04-06-2024 14:14-0500 Body weight 62.14 kg Dasha WAGNER Work Phone: [facility] 04-06-2024 14:14-0500 Diastolic blood pressure 62 mm[Hg] Dasha WAGNER Work Phone: [facility] 04-06-2024 14:14-0500 Systolic blood pressure 102 mm[Hg] Dasha WAGNER Work Phone: [facility] 03-09-2024 13:40-0400 Body mass index (BMI) [Ratio] 21.21 kg/m2 Pradip Lionel DO Work Phone: [facility] 03-09-2024 13:40-0400 Body weight 60.06 kg Pradip Lionel DO Work Phone: [facility] 03-09-2024 13:40-0400 Diastolic blood pressure 60 mm[Hg] Pradip Lionel DO Work Phone: [facility] 03-09-2024 13:40-0400 Systolic blood pressure 106 mm[Hg] Pradip Lionel DO Work Phone: [facility] 02-19-2024 14:28-0400 Body mass index (BMI) [Ratio] 21.21 kg/m2 [facility] Nurse [facility] 02-19-2024 14:28-0400 Body weight 60.06 kg [facility] Nurse [facility] 11-25-2023 11:50-0400 Body temperature 98.5 [degF] MD Brian Elizabeth Work Phone: [facility] 11-25-2023 11:50-0400 Diastolic blood pressure 77 mm[Hg] MD Brian Elizabeth Work Phone: [facility] 11-25-2023 11:50-0400 Heart rate 104 /min MD Brian Elizabeth Work Phone: [facility] 11-25-2023 11:50-0400 SaO2% (BldA) [Mass fraction] 97 % MD Brian Elizabeth Work Phone: [facility] 11-25-2023 11:50-0400 Systolic blood pressure 108 mm[Hg] MD Brian Elizabeth Work Phone: [facility] 11-24-2023 20:13-0400 Respiratory rate 18 /min MD Brian Elizabeth Work Phone: [facility] 11-24-2023 14:55-0400 Body height 167.64 cm MD Brian Elizabeth Work Phone: [facility] 11-24-2023 09:00-0400 Body weight 60.32 kg MD Brian Elizabeth Work Phone: [facility] 07-23-2023 09:12-0500 Body height 167.6 cm Harris Montague MD Work Phone: [facility] [employer] 07-23-2023 09:12-0500 Body mass index (BMI) [Ratio] 23.25 kg/m2 Harris Montague MD Work Phone: [facility] [employer] [facility] 07-23-2023 09:12-0500 Body temperature 98.49 [degF] Harris Montague MD Work Phone: [facility] [employer] 07-23-2023 09:12-0500 Body weight 65.32 kg Harris Montague MD Work Phone: [facility] [employer] 07-23-2023 09:12-0500 Diastolic blood pressure 74 mm[Hg] Harris Montague MD Work Phone: [facility] [employer] 07-23-2023 09:12-0500 Heart rate 56 /min [facility] 07-23-2023 09:12-0500 SaO2% (BldA) [Mass fraction] 97 % Harris Montague MD Work Phone: [facility] [employer] 07-23-2023 09:12-0500 Systolic blood pressure 124 mm[Hg] Harris Montague MD Work Phone: [facility] [employer] [facility] Encounters Encounter Date Encounter Type Care Provider Facility Start: 05-29-2024 End: 05-29-2024 Clinisync Result Encounter Dasha WAGNER Work Phone: [facility] Unsolicited Start: 05-29-2024 End: 05-29-2024 Clinisync Result Encounter Dasha WAGNER Work Phone: [facility] Unsolicited Start: 05-26-2024 End: 05-26-2024 Office outpatient visit 15 minutes Dasha WAGNER Work Phone: [facility] Comment on above: Second trimester pre gnancy; 22 weeks gestation of ; Diabetes mellitus screening Start: 05-26-2024 End: 05-26-2024 ambulatory DASHA POWERS Not Available Start: 05-26-2024 End: 05-26-2024 Bamboo flowsheet Dasha WAGNER Work Phone: [facility] Start: 05-26-2024 End: 05-26-2024 Bamboo flowsheet Dasha WAGNER Work Phone: [facility] Start: 05-07-2024 End: 05-12-2024 Clinisync Result Encounter Pradip Lionel DO Work Phone: [facility] Unsolicited Start: 05-07-2024 End: 05-12-2024 Clinisync Result Encounter Pradip Lionel DO Work Phone: [facility] External Department Unsolicited Start: 05-06-2024 End: 05-06-2024 [...] Clinisync Result Encounter Dasha WAGNER Work Phone: [facility] External Department Unsolicited Start: 04-06-2024 End: 04-06-2024 Patient encounter procedure Dasha WAGNER Work Phone: [facility] Healthcare Start: 04-06-2024 End: 04-06-2024 Periodic preventive med est patient 18-39 yrs Dasha WAGNER Work Phone: [facility] Comment on above: Well woman [...] 03-01-2024 End: 03-01-2024 Emergency department patient visit [facility] Start: 02-19-2024 End: 02-19-2024 ambulatory PRADIP R [facility] Start: 02-19-2024 End: 02-19-2024 Office outpatient visit 5 minutes [facility] Lionel Nurse [facility] Start: 02-19-2024 End: 02-19-2024 ambulatory PRADIP LIONEL Not Available Start: 02-05-2024 End: 02-05-[address] [facility] Start: 02-05-2024 End: 02-05-2024 ambulatory [facility] Start: 02-03-2024 ambulatory Krzysztof Finney acility:[facility] Start: 11-23-2023 Non-patient / Non-visit MD Treasure Elizabeth Work Phone: [facility] Work Phone: Start: 11-22-2023 End: 11-25-2023 Evaluation and management of inpatient MD Brian Elizabeth Work Phone: [address] Work Phone: Start: 11-22-2023 End: 11-22-2023 [facility] Start: 08-29-2023 End: 08-29-2023 ambulatory [facility] Start: 08-22-2023 End: 08-22-2023 ambulatory [facility] Start: 08-14-2023 Telephone encounter [facility] Start: 08-14-2023 End: 08-14-2023 ambulatory [facility] Not Available Start: 08-13-2023 End: 08-13-2023 ambulatory [facility] Start: 08-06-2023 End: 08-06-2023 ambulatory [facility] Start: 07-30-2023 End: 07-31-2023 [facility] Start: 07-23-2023 End: 07-23-2023 Office outpatient new 45 minutes Harris Montague MD Work Phone: [facility] Comment on above: Irritable bowel synd sarah with both constipation and diarrhea (Primary Dx); 9 weeks gestation of Start: 07-23-2023 End: 07-23-2023 ambulatory [facility] Start: 05-29-2023 End: 06-01-2023 ambulatory CARLI [facility] De O[facility] Start: 11-14-2022 End: 11-14-2022 ambulatory VENITA AMBROSIO [facility] Start: 10-23-2022 End: 10-24-2022 ambulatory CARLI Montes De Oca [facility] Start: 10-23-2022 End: 10-23-2022 Subsequent hospital visit by physician [facility] Comment on above: Rectal bleeding; Abnormal CT of the abdomen Start: 08-07-2022 End: 08-07-[address] SHARMILA KING Facility:[facility] Start: 02-14-2022 End: 02-14-[address] SHARMILA KING Facility:[facility] Procedures Date Procedure Procedure Detail Performing Clinician Start: 05-29-2024 ALL CBC WITH AUTO DIFF Dasha WAGNER Work Phone: Start: 05-26-2024 Urnls dip stick/tabl et rgnt [...] igd igg igm each Carli R Everton [employer]ER HAND - TAX ASSISTANT Work Phone: Plan of Treatment Date Care Activity Detail Author Start: 08-02-2031 DTaP,Tdap and Td Vaccines (7 - Td or Tdap) DTaP,Tdap and Td Vaccines (7 - Td or Tdap) [facility] Start: 08-02-2031 DTaP/Tdap/Td vaccine (7 - Td or Tdap) DTaP/Tdap/Td vaccine (7 - Td or Tdap) [facility] Start: 07-29-2024 Adult BMI Screening Adult BMI Screen ing [facility] Start: 07-29-2024 Tobacco Screening Tobacco Screening [facility] Start: 07-22-2024 Adult BMI Screening Adult BMI Screen ing [facility] Start: 07-22-2024 Depression Screening Depression Scre ening [facility] Start: 07-22-2024 Tobacco Screening Tobacco Screening [facility] Start: 06-22-2024 End: 06-22-2024 Patient encounter procedure 06/22/2024 9:50 AM EST Routine [facility] [address] [place] [id number] Pradip Flowers, DO [address] [place] [address] [facility] Start: 05-26-2024 End: 05-26-2024 Patient encounter procedure [facility] Comment on above: Arrived Start: 05-26-2024 End: 05-26-2025 CBC panel - Blood by Automated count CBC Lab Routine Diabetes mellitus screening Expected: 05/26/2024 (Approximate), Expires: 05/26/2025 [facility] Work Phone: Comment on above: Expected: 05/26/2024 (Approximate), Expires: 05/26/2025 Start: 05-26-2024 End: 05-26-2025 Measurement of glucose 1 hour after glucose challenge for glucose tolerance test Glucose tolerance, 1 hour Lab Routine Diabetes mellitus screening Expected: 05/26/2024 (Approximate), Expires: 05/26/2025 [facility] Comment on above: Expected: 05/26/2024 (Approximate), Expires: 05/26/2025 Start: 05-06-2024 End: 05-06-2024 Alpha fetoprotein, maternal Alpha fetoprotein, maternal Lab Routine Need for maternal serum alpha-protein (MSAFP) screening Expected: 05/06/2024 (Approximate), Expires: 05/06/2024 [facility] Healthcare Comment on above: Expected: 05/06/2024 (Approximate), Expires: 05/06/2024 Start: 05-06-2024 End: 05-06-2024 Patient encounter procedure [facility] Comment on above: Arrived Start: 04-06-2024 End: 04-06-2025 US for US OB ANATOMY SINGLE W US OB CERVICAL LENGTH Imaging Routine Screening, , for anatomic survey Expected: 04/06/2024 (Approximate), Expires: 04/06/2025 [facility] Healthcare Comment on above: Expected: 04/06/2024 (Approximate), Expires: 04/06/2025 Start: 04-06-2024 End: 04-06-2024 Patient encounter procedure [facility] Comment on above: Arrived Start: 03-09-2024 End: 03-09-2024 Patient encounter procedure [facility] Comment on above: Arrived Start: 02-19-2024 End: 02-18-2025 ABO/Rh ABO/Rh Lab Routine Missed menses , unspecified gestational age Expected: 02/19/2024 (Approximate), Expires: 02/18/2025 [facility] Healthcare Comment on above: Expected: 02/19/2024 (Approximate), Expires: 02/18/2025 Start: 02-19-2024 End: 02-18-2025 Blood type and Indirect antibody screen panel - Blood Type and screen Lab Routine Missed menses , unspecified gestational age Expected: 02/19/2024 (Approximate), Expires: 02/18/2025 [facility] Work Phone: Comment on above: Expected: 02/19/2024 (Approximate), Expires: 02/18/2025 Start: 02-19-2024 End: 02-18-2025 Drugs of abuse panel - Urine by Screen method Rapid drug screen, urine Lab Routine , unspecified gestational age Encounter for supervision of normal first in first trimester Expected: 02/19/2024 (Approximate), Expires: 02/18/2025 [facility] Healthcare Comment on above: Expected: 02/19/2024 (Approximate), Expires: 02/18/2025 Start: 02-19-2024 End: 02-18-2025 US Pelvis transvaginal US OB transvaginal Imaging Routine Missed menses Expected: 02/19/2024 (Approximate), Expires: 02/18/2025 [facility] Healthcare Comment on above: Expected: 02/19/2024 (Approximate), Expires: 02/18/2025 Start: 11-25-2023 [facility] Start: 11-22-2023 Hospital admission [facility] Start: 11-22-2023 [facility] Start: 01-17-2023 Influenza vaccination Influenza Vacc ine [facility] Start: 12-17-2022 Influenza vaccination Flu vacc ine (Season Ended) [facility] Start: 04-03-2022 Screening for Chlamy altagracia trachomatis Chlamydia Screening [facility] Start: 09-23-2020 Screening for malign ant neoplasm of cervix Pap smear [facility] [employer] [facility] Start: 09-23-2017 Hepatitis C screening Hepatitis C sc reen [facility] Start: 2015 Screening for Chlamy altagracia trachomatis Chlamydia/GC screen [facility] [employer] [facility] Start: 09-23-2014 HIV screening HIV screen [facility] [employer] Start: 2011 Depression Screen Depression Screen [facility] Start: 03-26-2000 COVID-19 Vaccine (#1) COVID-19 Vacci ne (#1) [facility] [employer] Bacteria identified in Urine by Culture Urine culture Microbiology Routine Missed menses Ordered: 02/19/2024 [facility] Comment on above: Ordered: 02/19/2024 End: 10-23-2022 Calprotectin Stool [facility] Work Phone: Comment on above: 1 Occurrences starti ng 10/23/2022 until 10/23/2022 CBC W Auto Different ial panel - Blood CBC and differential Lab Routine Missed menses , unspecified gestational age Ordered: 02/19/2024 [facility] Comment on above: Ordered: 02/19/2024 Celiac Disease Panel Celiac Dise ase Panel Lab Routine Rectal bleeding Abnormal CT of the abdomen 10/23/2022 4:23 PM EDT DENISE GUZMAN [employer] [facility] Work Phone: CHLAMYDIA TRACHOMATI S (GENITO/STI) CHLAMYDIA TRACHOMATIS (GENITO/STI) Lab Routine Exposure to STD Ordered: 04/06/2024 [facility] Comment on above: Ordered: 04/06/2024 Cytology Cervical or vaginal smear or scraping study Pap Smear Pathology and Cytology Routine Well woman exam with routine gynecological exam Ordered: 04/06/2024 [facility] Comment on above: Ordered: 04/06/2024 Hemoglobin A1c/Hemoglobin.total in Blood Hemoglobin A1c Lab Routine Missed menses , unspecified gestational age Ordered: 02/19/2024 [facility] Comment on above: Ordered: 02/19/2024 Hepatitis B virus surface Ag [Presence] in Serum or Plasma by Immunoassay Hepatitis B surface antigen Lab Routine Missed menses , unspecified gestational age Ordered: 02/19/2024 [facility] Comment on above: Ordered: 02/19/2024 Hepatitis C virus Ab [Presence] in Serum or Plasma by Immunoassay Hepatitis C antibody Lab Routine Missed menses , unspecified gestational age Ordered: 02/19/2024 [facility] Comment on above: Ordered: 02/19/2024 HIV-1/HIV-2 antigen/antibody combination immunoassay HIV-1 and HIV-2 antibodies Lab Routine Missed menses , unspecified gestational age Ordered: 02/19/2024 [facility] Comment on above: Ordered: 02/19/2024 Neisseria gonorrhoea e DNA [Presence] in Unspecified specimen by TRACY with probe detection Neisseria gonorrhea DNA probe, direct Lab Routine Exposure to STD Ordered: 04/06/2024 [facility] Comment on above: Ordered: 04/06/2024 Patient Education Depression, Ad ult (DC) [facility] DC Instructions Know your Meds [facility] Work Phone: Patient referral [facility] Work Phone: Reagin Ab [Presence] in Serum by RPR RPR Lab Routine Missed menses , unspecified gestational age Ordered: 02/19/2024 [facility] Comment on above: Ordered: 02/19/2024 Rubella antibody, IgG Rubella an tibody, IgG Lab Routine Missed menses , unspecified gestational age Ordered: 02/19/2024 [facility] Comment on above: Ordered: 02/19/2024 SURESWAB(R) ADVANCED VAGINITIS PLUS, TMA SURESWAB(R) ADVANCED VAGINITIS PLUS, TMA Pathology and Cytology Routine Exposure to STD Ordered: 04/06/2024 [facility] Work Phone: Comment on above: Ordered: 04/06/2024 Payers Date Payer Category Payer Self-pay 2021 Medicaid (Managed Care) [employer] [id number] 2021 Medicaid [id number] 2019 Unknown VIRI POLLARD SS (PPO) [id number] 2019-Present [phone] [address] [place] [address] [id number] 1999 Unknown [id number] 2.16.840.1.280132.3.579.2. 593 1999 Unknown [id number] 2.16.840.1.064707.3.579.2. 593 1999 Unknown [id number] 2.16.840.1.043463.3.579.2. 174 1999 Unknown [id number] 2.16.840.1.702054.3.579.2. 174 1999 Unknown [id number] 2.16.840.1.276505.3.579.2. 173 1999 Unknown [id number] 2.16.840.1.979663.3.579.2. 1285 1999 Unknown [id number] 2.16.840.1.807432.3.579.2. 1285 1999 Unknown [id number] 2.16.840.1.833910.3.579.2. 1285 1999 Unknown [id number] 2.16.840.1.813902.3.579.2. 1285 1999 Unknown [id number] 2.16.840.1.501021.3.579.2. 1285 1999 Unknown [id number] 2.16.840.1.549042.3.579.2. 1285 1999 Unknown [id number] 2.16.840.1.415481.3.579.2. 1285 1999 Unknown [id number] 2.16.840.1.711420.3.579.2. 1285 1999 Unknown [id number] 2.16.840.1.333712.3.579.2. 1285 1999 Unknown [id number] 2.16.840.1.456432.3.579.2. 1285 1999 Unknown [id number] 2.16.840.1.167844.3.579.2. 1285 1999 Unknown [id number] 2.16.840.1.516672.3.579.2. 1285 1999 Unknown [id number] 2.16.840.1.375521.3.579.2. 9 1999 Unknown [id number] 2.16.840.1.001116.3.579.2. 9 1999 Unknown [id number] 2.16.840.1.704460.3.579.2. 9 1999 Unknown [id number] 2.16.840.1.693678.3.579.2. 1258 1999 Unknown [id number] 2.16.840.1.581165.3.579.2. 1258 1999 Unknown [id number] 2.16.840.1.695291.3.579.2. 1259 1959 Unknown [id number] 1959 Unknown [id number] Unknown [id number] 2.16.840.1.624444.3.579.2. 531 Unknown [id number] 2.16.840.1.125753.3.579.2. 531 Social History Date Type Detail Facility Start: 10-23-2022 End: 08-13-2023 Tobacco smoking status RIIS Never smoked tobacco [facility] Phone: Start: 10-23-2022 End: 07-23-2023 Tobacco use and exposure Smokeless tobacco non-user [facility] Phone: Start: 1999 Sex Assigned At Not on file [facility] Phone: Start: 07-23-2023 End: 04-06-2024 Alcohol intake Lifetime non-drinker (finding) [facility] Start: 03-11-2020 End: 08-13-2023 History of Social function [facility] Start: 03-11-2020 End: 08-13-2023 Alcohol Use Disorder Identification Test - Consumption [AUDIT-C] [facility] How often to you hav e a drink containing alcohol? Never [facility] Average Number of Drinks Not on file [facility] How hard is it for y ou to pay for the very basics like food, housing, medical care, and heating [facility] hard [facility] The thought of kelli flynn myself has occurred to me Hardly ever [facility] Start: 05-27-2023 [facility] Start: 2000 Sex Assigned At Female [facility] Start: 07-24-2023 Sexual orientation Heterosexual (finding) [facility] Goals Date Patient Goal Desired Activity /State Functional Status Date Assessment Result Facility 11-25-2023 Functional status Patient at Baseline [facility] Work Phone: Mental Status Date Assessment Result Facility 11-25-2023 Cognitive function Cognitive Sta tus Patient at Baseline [facility] Work Phone: Clinical Notes 07-23-2023 to 05-26-2024 KRISTY Alfaro - 05/26/2024 2:20 PM Marvel Pinon LPN - 05/06/2024 10:40 AM KRISTY Aviles - 04/06/2024 1:50 PM Uriah Gale LPN - 03/09/2024 1:30 PM EDT Note Date [...] for routine OB appointment. Documented by Jacklyn rG MA on behalf of: KRISTY Alfaro documented in this encounter [facility] 05-06-2024 History of Presen t illness [...] nursing note reviewed. Exam conducted with a job forwarder present. Vitals: Estimated body mass index is 22.75 kg/m as calculated from the following: Height as of 04/13/18: 5' 6.25 . Weight as of this [...] Pradip Flowers DO documented in this encounter [facility] 04-06-2024 History of Presen t illness [...] nursing note reviewed. Exam conducted with a job forwarder present. Vitals: Estimated body mass index is [...] of: KRISTY Alfaro documented in this encounter [facility] 03-09-2024 History of Presen t illness [...] nursing note reviewed. Exam conducted with a job forwarder present. Vitals: Estimated body mass index is [...] or undercooked meat, [facility] Patient has been consulted regarding any further do's and don'ts of . Patient voiced understanding and all questions and concerns were answered. Orders Placed This Encounter Procedures POCT urinalysis dipstick manually resulted Follow Up: Patient is to return in 4 weeks for routine OB appointment. Documented by Iris Gale LPN on behalf of: Pradip Flowers DO documented in this encounter [facility] 02-19-2024 History of Presen t illness [...] or undercooked meat, [facility]. Patient has also been advised to [...] Sridevi Stone LPN documented in this encounter [facility] 11-24-2023 Progress note Note Date/Time November 24, 2023 1:21p [facility] ENTER [address] [place] [address] Psychiatry Progress Note Signed Patient: Megan Collado MR#: [id number] : 2000 Acct:[id number] Age/Sex: 23 / F Adm Date: 4 Loc: 1S Room: [address] [place] [address] Type : ADM IN Attending Dr: Krzysztof [...] signed by Demetrius Kelley MD> 11/24/23 1322 [facility] Work Phone: 1(102) 581-162907-07-2024 History and physical note Author Krzysztof vargas [facility] November 23, 2023 9:45am Note Date/Time November 23, 2023 7:42a m [facility] ENTER [address] [place] [address] Psychiatry H&P Signed Patient: Megan Collado MR#: [id number] : 2000 Acct:[id number] Age/Sex: 23 / F Adm Date: 4 Loc: Room: [address] [place] [address] Type: ADM IN Attending Dr: Krzysztof Montesinos [...] them for any support. 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 Concerning for miscarriage/ termination Please call patient to see if she would like appointment with provider to discuss or if OB providerhas already reviewed? [facility]03-28[facility]2024 Telephone encounter Note* Telephone Encounter - Malia Sanchez CMA - 08/14/2023 1:54 PM EDT Called patient she stated that she did not need to set up an appointment [facility]03-06-2024 History of Present illness Narrative* Harris Montague MD - 07/23/2023 9:00 AM EST Images from the original note were not included. [address] [place] [id number] Patient: Megan Collado Date of : 2000 Encounter Date: 07/23/2023 SUBJECTIVE: Chief Complaint: Chief Complaint Patient presents with [facility] Care Patient ID: Megan Collado is [...] needed. HARRIS MONTAGUE MD Family Medicine Physician [facility] Family Medicine / [facility] 07/23/23 This note was completed with voice recognition software. The document was reviewed for errors however some may still be present. Please do not hesitate to contact/[facility] the author to verify any questions/concerns. [facility] Author Demetrius Kelley [facility] November 25, 2023 12:08pm Note Date/Time November 25, 2023 11:13 am [facility] EN[facility] [address] [place] [address] Discharge Summary Signed Patient: Megan Collado MR#: [id number] : 2000 Acct:[id number] Age/Sex: 23 / F Adm Date: 4 Loc: Room: [address] [place] [address]: Krzysztof Montesinos MD Copies to: [...] them for any support. 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 If at any time you are feeling an increase inyour psychiatric symptoms, call your physician or behavioral healthcare provider. If any time you have thoughts of harming yourself or others contact one of the following: Call (available 09/12) Crisis Text Line (available 09/12) text 4[facility] to [phone] [facility] Hope Line (available 8 a.m. Midnight) call [phone] ([phone]) Instructions: Depression, Adult (DC), [facility] Behavioral Health DC Instructions, Know your Meds [...] PO DAILY PRN (Reason: constipation) Follow Up: [facility] [Outside] - 11/26/23 (This will be [...] signed by Demetrius Kelley MD> 11/25/23 1208 [facility] Work Phone: Evaluation note* Diagnosis Rectal bleeding Hemorrhage of rectum and anus Abnormal CT of the abdomen Nonspecific (abnormal) findings on radiological and other examination of abdominal area, including retroperitoneum documented in this encounter [facility] Work Phone: evaluation note* Diagnosis Irritable bowel syndrome with both constipation and diarrhea- Primary 9 weeks gestation of [facility] Diagnosis Onset Date Resolution Status Major depressive disorder, recurrent, moderate acute [facility] Work Phone: Evaluation note* Diagnosis Missed menses , unspecified gestational age Encounter for supervision of normal first in first trimester documented in this encounter [facility] HealthcareEvaluation note* Diagnosis 11 weeks gestation of First trimester state, incidental documented in this encounter [facility] HealthcareEvaluation note* Diagnosis Well woman exam with [...] encounter [facility] HealthcareInstructionsNot on filedocumented in this encounterProF[facility] SystemInstructionsNot on filedocumented in this encounterProF[facility] Summary Purpose Family History No [...] AUTHOR AUTHOR'S ORGANIZ ATION 11/18/[address] [facility] DATE CREATED AUTHOR AUTHOR'S ORGANIZ ATION 02/26/2023 [facility] DATE CREATED AUTHOR AUTHOR'S ORGANIZ ATION 06/01/2023 [facility] DATE CREATED AUTHOR AUTHOR'S ORGANIZ ATION 02/07/2024 [facility] DATE CREATED AUTHOR AUTHOR'S ORGANIZ ATION 02/08/2024 [facility] DATE CREATED AUTHOR AUTHOR'S ORGANIZ ATION 03/03/2024 [facility] DATE CREATED AUTHOR AUTHOR'S ORGANIZ ATION 03/14/2024 [facility] DATE CREATED AUTHOR AUTHOR'S ORGANIZ ATION 06/01/2024 [facility] EPIC Reason for Visit (unrecogniz ed section and content) Reason Comments Establish Care Reason Comments Amenorrhea Reason Comments Routine Visit Care Teams (unrecognized sec tion and content) Ironworker Foreman Relationship Specialty Start Date End Date Harris Montague MD [address], [place] [address] PCP - General Internal Medicine 07/23/23 Ironworker Foreman Relationship Specialty Start Date End Date Harris Montague MD [address], [place] [address] PCP - General Internal Medicine 07/23/23 Team [...] Other Provider Active Start: November 23, 2023 Ironworker Foreman Relationship Specialty Start Date End Date Sharmila King MD [address] [place] [address] PCP - External PCP Family Medicine 10/26/22 Harris Montague MD [address] [place] [address] PCP - General Family Medicine 08/14/23 Ironworker Foreman Relationship Specialty Start Date End Date Sharmila King MD [address] [place] [address] PCP - External PCP Family Medicine 10/26/22 Harris Montague MD [address] [place] [address] PCP - General Family Medicine 08/14/23 Ironworker Foreman Relationship Specialty Start Date End Date Sharmila King MD [address] [place] [address] PCP - External PCP Family Medicine 10/26/22 Harris Montague MD [address] [facility] [place] [place] [address] PCP - General Family Medicine 08/14/23 Ironworker Foreman Relationship Specialty Start Date End Date Sharmila King MD [address] [place] [address] PCP - External PCP Family Medicine 10/26/22 Harris Montague [facility] [address] [facility] [facility] [place] [address] PCP - General Family Medicine 08/14/23 Ironworker Foreman Relationship Specialty Start Date End Date Sharmila King MD [address] [place] [address] PCP - External PCP Family Medicine 10/26/22 Harris Montague MD [address] [place] [address] PCP - General Family Medicine 08/14/23 Ironworker Foreman Relationship Specialty Start Date End Date Sharmila King MD [address] [place] [address] PCP - External PCP Family Medicine 10/26/22 Harris Montague MD [address] [place] [address] PCP - General Family Medicine 08/14/23 Ironworker Foreman Relationship Specialty Start Date End Date Sharmila King MD [address] [place] [address] PCP - External [facility] Family Medicine 10/26/22 Harris Montague MD [address] [facility] [place] [address] PCP [facility] 08/14/23 Ironworker Foreman Relationship Specialty Start Date End Date Sharmila King MD [address] [place] [address] PCP - External [facility] Family Medicine 10/26/22 Harris Montague MD [address] [facility] [place] [address] PCP - General Family Medicine 08/14/23 FOR [...] BE BASED ON THE PRIMARY CLINICAL RECORDS. [facility] threadsy [facility]. provides no warranty or guarantee of the accuracy or completeness of information in this document.
--- NOTE | 2024-06-04 19:03 | US_ITS ---
The [address] [address] Patient Name: BASSAM FERGUSON MRN: [id number] date: 2000 Sex: F Assigned Patient Location: US Current Patient Location: Accession/Order Number: [id number] Exam Date: 06/04/2024 19:06 Report Date: 06/05/2024 00:55 At the request of: SHADI VAZQUEZ Procedure: US OB follow up EXAMINATION: US OB follow up HISTORY: ENCOUNTER FOR FOLLLOW UP OF ANATOMY Z36.2 COMPARISON: Ultrasound OB anatomy 05/07/2024 FINDINGS: Heart rate: 143 bpm Anatomy: Stomach appears normal; echogenic structures no longer seen within the stomach. GA: 24 weeks 0 days ARTUR: 09/24/2024 US/US OB follow up IMPRESSION: 1. Single live intrauterine . 2. Normal appearance of stomach on today's study. Electronically authenticated by: AGUSTIN SWANN Date: 06/05/2024 00:55
== END 2024-06-04 18:50 | disposition home or self-care (01) ==
LOC: US 18:49
PROVIDERS: PCP Student in an Organized Health Care Education/Training Program; Visit Provider Obstetrics & Gynecology
DX: Z36.2 Encounter for other antenatal screening follow-up (principal); Z3A.24 24 weeks gestation of pregnancy
CPT/HCPCS: 76816

== ENCOUNTER 2024-08-30 01:25 | Observation (INO) | payer OTHER, SELFPAY ==
--- OUTSIDE RECORDS SUMMARY | 2024-08-30 01:30 | XMS_ITS | CCD ---
Author Organization [facility] Care Team Providers Care Hand Candy Molder Name Role Phone DR SHARMILA KING Primary [...] AMBROSIO Attending Unavailable CARLI WILD Referring Unavailable MD Brian Elizabeth Primary Care Provider MD Krzysztof Montesinos Admit Provider MD Krzysztof Montesinos Attending Provider [phone] HARRIS TORRES Attending Unavailable SHARMILA KING Referring Unavailable BRIANJOSELINID Karley Primary Care Unavailable BRIANHARRIS Attending Unavailable BRIAN MUHAMID M Referring Unavailable BRIAN, MUHAMID M Primary Care Unavailable BRIAN, MUHAMID M Referring Unavailable BRIAN, MUHAMID M Primary Care Unavailable Sharmila King MD Unavailable Harris Torres MD Primary Care Provider BRIAN, MUHAMID M Primary Care Unavailable NATASHA ELIZABETH Attending Unavailable HAROLDO SOTO Attending Unavailable HAROLDO SOTO Referring Unavailable BRIAN, MUHAMID M Primary Care Unavailable PRADIP FLOWERS Referring Unavailable BRIAN, MUHAMID M Primary Care Unavailable LIONEL, PRADIP R Referring Unavailable BRIAN, MUHAMID M Primary Care Unavailable LIONEL, PRADIP R Referring Unavailable BRIAN, MUHAMID M Primary Care Unavailable LIONEL, PRADIP R Referring Unavailable BRIAN, MUHAMID M Primary Care Unavailable BRIAN, MUHAMID M Primary Care Unavailable ALEX CHAVES Attending Unavailable LIONEL, PRADIP R Referring Unavailable BRIAN, MICKHAMID M Primary Care Unavailable BRIAN, MICKHAMID M Primary Care Unavailable Krzysztof Montesinos Admitting Unavailab le Glenn, Brian Primary Care Unavailable Demetrius Kelley Attending Unavailable Jaguar, Krzysztof Attending Unavailab le JaguarJr swanhman Admitting Unavailab le Glenn, Brian Primary Care Unavailable Brian , Harris Karley Primary Care Provider [phone] Briananna ROBERT Mickoliverio Crandall Primary Care Provider BrianHarris finney MD Primary Care Provider [phone] LIONEL, PRADIP Attending Unavailable VERONICA, DASHA Attending Unavailable VERONICA, DASHA Attending Unavailable VERONICA, DASHA Referring Unavailable LIONEL, PRADIP Attending Unavailable LIONEL, PRADIP Attending Unavailable VERONICA, DASHA Attending Unavailable LIONEL, PRADIP Attending Unavailable VERONICA, DASHA Attending Unavailable Allergies Allergy Classification Reported Allergen(s) Allergy Type Date of Onset Reaction(s) Facility (4 sources) Amoxicillin; Translations: [AMOXICILLIN] Drug Allergy 01-14-2021 [facility] Repository (20 sources) Amoxicillin Drug Allergy 04-07-2021 Vomiting [facility] Medications Current Medications Medication Drug Class(es) [...] 7 days. 21 capsule 05/06/2024 05/13/2024 Active mupirocin 0.02 mg/mg topical ointment (2 sources) RNA Synthetase Inhibitor Antibacterial Start: 10-09-2023 mupirocin (BACTROBAN) 2 % ointment Apply 1 Application topically 3 (three) times a day. 22 g 10/09/2023 Active nicotine 2 mg chewing gum (1 source) Cholinergic Nicotinic Agonist Start: 11-25-2023 Nicotine (Polacrilex) Active 2 MG BUCCAL Q2H November 25, 2023 12:00am nitrofurantoin, macrocrystals 25 mg / nitrofurantoin, monohydrate 75 mg oral capsule (1 source) Nitrofuran Antibacterial Start: 02-05-2024 End: 02-10-2024 take 1 capsule by mouth in the morning, then take 1 capsule by mouth at bedtime nitrofurantoin, macrocrystal-monohyd rate, (MACROBID) 100 mg capsule Indications: Dysuria Take 1 capsule (100 mg total) by mouth in the morning and 1 capsule (100 mg total) before bedtime. Do all this for 5 days. 10 capsule 02/05/2024 02/10/2024 Active ondansetron 4 mg disintegrating oral tablet (20 sources) Serotonin-3 Receptor Antagonist Start: 02-25-2024 End: [...] November 22, 2023 12:00am polyethylene glycol 3350 28714 mg powder for oral solution (1 source) Osmotic Laxative Start: 11-22-2023 Polyethylene Glycol 3350 (Miralax) 17 gram/dose powder Active 17 GM PO Daily November 22, 2023 12:00am polysaccharide iron complex 391 mg oral capsule (5 sources) Start: 06-01-2024 End: 07-01-2024 take 1 capsule by mouth once daily iron polysaccharides (ProFe) 391.3 (180 Fe) MG capsule Indications: Low iron Take 1 capsule (391.3 mg) by mouth Daily 30 capsule 6 06/01/2024 07/01/2024 Active 25/iron fum/folic/dha (-1 ORAL) (4 sources) take 1 tablet by mouth once daily 25/iron fum/folic/dha (-1 ORAL) Take 1 tablet by mouth daily. Active take 1 tablet by mouth once lulu y 25/iron fum/folic/dha (-1 ORAL) Take 1 tablet by mouth daily. 0 Active MV & Min w/FA-DHA ( Gummies) 0.18-25 MG chewable tablet (20 sources) Start: 06-17-2024 MV & Min w/FA-DHA ( Gummies) 0.18-25 MG chewable tablet Indications: First trimester Chew 1 each Daily 30 tablet 3 06/17/2024 Active Start: 03-09-2024 MV & Min w/FA-DHA ( Gummies) 0.18-25 MG chewable tablet Indications: First trimester Chew 1 each Daily 30 tablet 11 03/09/2024 Active MV-Min-Fe Fum-FA-DHA ( 1 PO) (1 source) MV-Min- Fe Fum-FA-DHA ( 1 PO) Take 1 tablet by mouth daily 0 Active Vit-Fe Fumarate-FA ( Vitamins) 28-0.8 MG tablet (20 sources) Start: 11-17-2023 End: 08-16-2024 take 1 tablet by mouth once daily Vit-Fe Fumarate-FA ( Vitamins) 28-0.8 MG tablet Take 1 tablet by mouth Daily 11/17/2023 08/16/2024 Discontinued Start: 11-17-2023 take 1 tablet by tiffanie th once daily Vit-Fe Fumarate-FA ( Vitamins) 28-0.8 MG tablet Take 1 tablet by mouth Daily 11/17/2023 Active Vit-Fe Fumarate-FA (Se- 19) 29-1 MG chewable tablet (4 sources) Start: 03-09-2024 End: 08-16-2024 Vit-Fe Fumarate-FA (Se-Tyson 19) 29-1 MG chewable tablet Chew 1 tablet Daily 03/09/2024 08/16/2024 Discontinued Start: 03-09-2024 Vit-F e Fumarate-FA (Se-Tyson 19) 29-1 MG chewable tablet Chew 1 tablet Daily 03/09/2024 Active sertraline 50 mg oral tablet (20 sources) Serotonin Reuptake Inhibitor Start: 01-27-2024 take 1 tablet by mouth once daily sertraline (Zoloft) 50 MG tablet Take 50 mg by mouth Daily 01/27/2024 Active Start: 11-25-2023 take 25 mg by mouth once daily in the morning Sertraline Active 25 MG PO Every morning November 25, 2023 12:00am Problems Active Problems Problem Classification Problem Date Documented Da te Episodic/Chronic Anxiety disorders (7 sources) Anxiety disorder, unspecified; 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] Onset: 2 10-23-2022 Chronic Gastrointestinal hemorrhage (3 sources) Gastrointestinal hemorrhage, unspecified; Translations: [Rectal hemorrhage] Onset: 2 Episodic Genitourinary symptoms and ill-defined conditions (4 sources) Personal history of urinary (tract) infections; Translations: [Dysuria] Onset: 3 02-05-2024 Episodic Immunizations and screening for infectious disease [...] moderate] Onset: 4 11-23-2023 Chronic Mood disorders (5 sources) Mood disorders; Translations: [Depression, unspecified] Onset: 4 07-23-2023 Other complications of (2 sources) size does not accord with dates; Translations: [Uterine size-date discrepancy, unspecified trimester] 07-26-2024 Episodic Other gastrointestinal disorders (1 source) Irritable bowel [...] 3 Episodic Other and delivery including normal (20 sources) ; Translations: [Encounter for supervision of normal , unspecified, unspecified trimester] Onset: 2 02-19-2024 Episodic Other screening for suspected conditions (not mental disorders or infectious disease) (10 sources) CT of abdomen abnormal; Translations: [Abnormal findings on diagnostic imaging of other abdominal regions, including retroperitoneum] Onset: 3 Episodic Residual codes; unclassified (2 sources) Gestation [...] [22 weeks gestation of ] 05-26-2024 Episodic Residual codes; unclassified (2 sources) Gestation period, 26 weeks; Translations: [26 weeks gestation of ] 06-22-2024 Episodic Residual codes; unclassified (2 sources) Gestation period, 28 weeks; Translations: [28 weeks gestation of ] 07-07-2024 Episodic Residual codes; unclassified (2 sources) Gestation period, 31 weeks; Translations: [31 weeks gestation of ] 07-26-2024 Episodic Residual codes; unclassified (2 sources) Gestation period, 34 weeks; Translations: [34 weeks gestation of ] 08-16-2024 Episodic Unclassified (1 source) Establish Care Onset: [...] tags; Translations: [Other hemorrhoids] Onset: 02-15-2022 Episodic Residual codes; unclassified (1 source) Gestation period, 9 weeks; Translations: [9 weeks gestation of ] 07-23-2023 Episodic Spontaneous (1 source) Complete or unspecified spontaneous without complication; Translations: [Complete or unspecified spontaneous without complication] Onset: 08-06-2023 Episodic Results Test Name Value Interpretation Reference Range Facility US OB FOLLOW UP TRANSABDOMIN AL APPROACHon 08-16-2024 US OB FOLLOW UP TRANSABDOMINAL APPROACH EXAM: US OB FOLLOW UP TRANSABDOMINAL APPROACH HISTORY: Inconsistent size. COMPARISON: OB ultrasound 05/07/2024. TECHNIQUE: Two-dimensional transabdominal grayscale ultrasound imaging of the pelvis was performed. FINDINGS: Gestation: Single Presentation: Cephalic Cardiac Activity: 153 beats per minute Placental Location: Anterior/fundal with no sonographic abnormalities identified. Amniotic Fluid Index: 13.5 cm MEASUREMENTS: BPD: 9.0 cm EGA: 36 weeks 2 days HC: 32.6 cm EGA: 36 weeks 6 days AC: 31.3 cm EGA: 35 weeks 2 days FL: 6.6 cm EGA: 34 weeks 0 days HC/AC Ratio: 1.04 The gestational age by today's ultrasound is 35 weeks 4 days (+/- 17 days gestation). Estimated Weight: 2621 grams, +/- 393 grams ( 5 lb 12 oz). Weight Percentile for gestational age: 68 % IMPRESSION: 1. Single, live intrauterine gestation 34 weeks, 3 days by LMP. Today's ultrasound measurements correlate with a gestational age of 35 weeks 4 days. Estimated weight is 2621 grams, +/- 393 grams ( 5 lb 12 oz) which correlates to 68 %. ARTUR is 09/16/2024. Electronically Signed:Electronically signed by BRENT DOSHI II, MD, PHD at 17-Aug-2024 09:56:53 AM [facility] Normal Not Available Comment on above: Order Comment: US OB SCAN FOR GROWTH Estimated Date of Delivery: 09/24/24 Gestational Age as of 07/26/2024: 31w3d Urinalysis macro (dipstick) panel (U)on 08-16-2024 Bilirubin, UA Negative Negative - 4(70) +++ mg/dL [facility] Blood, UA Negative Negative - 50 Hosea/mcL [facility] Clarity, UA Clear [facility] Color, UA Yellow [facility] Glucose, UA Negative Negative - 1999(110) ++++ mg/dL [facility] Interpretation and review of laboratory results Abnormal [facility] Ketones, UA Positive Negative - 160(16) ++++ mg/dL [facility] Comment on above: trace Leukocytes, UA Positive Negative - 500+++ Greg/mcL [facility] Comment on above: small Nitrite, UA Negative Negative - Positive [facility] pH, UA 6.5 5 - 9 [facility] Protein, UA Positive Negative - 1999(20) ++++ mg/dL [facility] Comment on above: 30 Spec Grav, UA 1.03 1 - 1.03 [facility] Urobilinogen, UA 0.2 0.2 - 12 mg/dL [facility] Urinalysis macro (dipstick) panel (U)on 07-26-2024 Bilirubin, UA Negative Negative - 4(70) +++ mg/dL [facility] Blood, UA Negative Negative - 50 Hosea/mcL [facility] Clarity, UA Clear [facility] Color, UA Yellow [facility] Glucose, UA Negative Negative - 1999(110) ++++ mg/dL [facility] Interpretation and review of laboratory results Abnormal [facility] Ketones, UA Negative Negative - 160(16) ++++ mg/dL [facility] Leukocytes, UA Positive Negative - 500+++ Greg/mcL [facility] Comment on above: small Nitrite, UA Negative Negative - Positive [facility] pH, UA 6 5 - 9 [facility] Protein, UA Positive Negative - 1999(20) ++++ mg/dL [facility] Comment on above: 30 mg Spec Grav, UA 1.025 1 - 1.03 [facility] Urobilinogen, UA 0.2 0.2 - 12 mg/dL [facility] Urinalysis macro (dipstick) panel (U)on 07-07-2024 Bilirubin, UA Negative Negative - 4(70) +++ mg/dL [facility] Blood, UA Negative Negative - 50 Hosea/mcL [facility] Clarity, UA Clear [facility] Color, UA Yellow [facility] Glucose, UA Negative Negative - 1999(110) ++++ mg/dL [facility] Interpretation and review of laboratory results Abnormal [facility] Ketones, UA Negative Negative - 160(16) ++++ mg/dL [facility] Leukocytes, UA Positive Negative - 500+++ Greg/mcL [facility] Comment on above: small Nitrite, UA Negative Negative - Positive [facility] pH, UA 7 5 - 9 [facility] Protein, UA Positive Negative - 1999(20) ++++ mg/dL [facility] Comment on above: 30 Spec Grav, UA 1.02 1 - 1.03 [facility] Urobilinogen, UA 0.2 0.2 - 12 mg/dL [facility] Urinalysis macro (dipstick) panel (U)on 06-22-2024 Bilirubin, UA Negative Negative - 4(70) +++ mg/dL [facility] Blood, UA Negative Negative - 50 Hosea/mcL [facility] Clarity, UA Clear [facility] Color, UA Yellow [facility] Glucose, UA Negative Negative - 1999(110) ++++ mg/dL [facility] Interpretation and review of laboratory results Abnormal [facility] Ketones, UA Negative Negative - 160(16) ++++ mg/dL [facility] Leukocytes, UA Positive Negative - 500+++ Greg/mcL [facility] Nitrite, UA Negative Negative - Positive [facility] pH, UA 6.5 5 - 9 [facility] Protein, UA Negative Negative - 1999(20) ++++ mg/dL [facility] Spec Grav, UA 1.02 1 - 1.03 [facility] Urobilinogen, UA 1.0 0.2 - 12 mg/dL [facility] ALL CBC WITH AUTO DIFFon BASOPHILS ABSOLUTE AUTO 0 [facility] Basophils/100 WBC (Bld) 0.2 % 0.2 - 2.0 % [facility] Eosinophils/100 WBC (Bld) 0.6 % Low 0.9 - 7.0 % [facility] Erythrocyte distribution width (RBC) [Ratio] 14 % 11.0 - 15.0 % [facility] Hematocrit (Bld) [Volume fraction] 36.2 % 36.0 - 48.0 % [facility] Hemoglobin (Bld) [Mass/Vol] 12.3 g/dL 12.0 - 16.0 g/dL [facility] IMMATURE GRANULOCYTES ABS AUTO 0.06 High [facility] Immature granulocytes/100 WBC (Bld) 0.6 % High 0.0 - 0.5 % [facility] Interpretation and review of laboratory results Abnormal [facility] LYMPHOCYTES ABSOLUTE AUTO 1.4 [facility] Lymphocytes/100 WBC (Bld) 14.6 % Low 20.5 - 60.0 % [facility] MCH (RBC) [Entitic mass] 32.2 pg 26. 7 - 34.0 pg [facility] MCHC (RBC) [Mass/Vol] 34 g/dL 29.9 - 35.2 g/dL [facility] MCV (RBC) [Entitic vol] 94.8 fL 81.0 - 99.0 fL [facility] MONOCYTES ABSOLUTE AUTO 0.6 N [facility] Monocytes/100 WBC (Bld) 6.3 % 1.7 - 12.0 % [facility] NEUTROPHILS ABSOLUTE AUTO 7.3 High [facility] Neutrophils/100 WBC (Bld) 77.7 % High 43.0 - 75.0 % [facility] Platelet mean volume (Bld) [Entitic vol] 9.6 fL 9.5 - 13.5 fL [facility] TBH EO # 0.1 [facility] TBH PLT 161 [facility] TB RBC 3.82 Low [facility] TB WBC 9.4 [facility] Urinalysis macro (dipstick) panel (U)on 05-26-2024 Bilirubin, UA Negative Negative - 4(70) +++ mg/dL [facility] Blood, UA Negative Negative - 50 Hosea/mcL [facility] Clarity, UA Clear [facility] Color, UA Yellow [facility] Glucose, UA Negative Negative - 1999(110) ++++ mg/dL [facility] Interpretation and review of laboratory results Abnormal [facility] Ketones, UA Negative Negative - 160(16) ++++ mg/dL [facility] Leukocytes, UA Positive Negative - 500+++ Greg/mcL [facility] Comment on above: small Nitrite, UA Negative Negative - Positive [facility] pH, UA 6.5 5 - 9 [facility] Protein, UA Negative Negative - 1999(20) ++++ mg/dL [facility] Spec Grav, UA 1.015 1 - 1.03 [facility] Urobilinogen, UA 0.2 0.2 - 12 mg/dL [facility] AFP, SERUM, OPEN SPINA BIFID Aon 05-12-2024 AFP MOM 1.30 . [facility] AFP VALUE 43.2 ng/mL . [facility] COMMENT: Comment . [facility] Comment on above: Yola Sellers , Ph.D., [facility] Director References: Available Upon Request. Multiples Of Median Cutoffs For AFP Elevations Montaño 2.5 Black 2.8 IDD 2.0 Twins 4.5 Abbreviation Definitions IDD - Insulin Dep Diabetes OSBR - Open Spina Bifida Risk For further inquiries contact [facility] at [phone]. This test was developed and its performance characteristics determined by [employer]. It has not been cleared or approved by the Food and Drug Administration. Performed at: [facility] [place], [place] [id number] Women'S Soccer Coach: Иван Kearney [facility], Phone: [phone] GEST. AGE ON COLLECTION DATE 15.6 . weeks [facility] GESTAT. AGE BASED ON LMP . [facility] Comment on above: Recalculations are n ot recommended when gestational dating by LMP and ultrasound are within 10 days. INSULIN DEP DIABETES No . [facility] INTERPRETATION Comment . [facility] Comment on above: Interpretation: Scre en Negative [...] Customer Services to discuss available options. The [employer] recommends amniocentesis be offered to women age 35 and older. [age]UR [age] [facility] MULTIPLE GESTATION No . [facility] OSBR RISK 1 [place] 4803 . [facility] RACE . [facility] RESULTS Report . [facility] TEST RESULTS: Negative . [facility] WEIGHT 137 . lbs [facility] N N LMP [id number] 4 15 N 1 Y 137 N N N N N White/ [facility] Urinalysis macro (dipstick) panel (U)on 05-06-2024 Bilirubin, UA Negative Negative - 4(70) +++ mg/dL [facility] Blood, UA Negative Negative - 50 Hosea/mcL [facility] Clarity, UA Clear [facility] Color, UA Yellow [facility] Glucose, UA Negative Negative - 2000(110) ++++ mg/dL [facility] Interpretation and review of laboratory results Abnormal [facility] Ketones, UA Negative Negative - 160(16) ++++ mg/dL [facility] Leukocytes, UA Positive Negative - 500+++ Greg/mcL [facility] Comment on above: small Nitrite, UA Negative Negative - Positive [facility] pH, UA 7 5 - 9 [facility] Protein, UA Negative Negative - 2000(20) ++++ mg/dL [facility] Spec Grav, UA 1.02 1 - 1.03 [facility] Urobilinogen, UA 0.2 0.2 - 12 mg/dL [facility] IGP,APTIMA HPV,AGE GDLNon AGE GDLN ACOG TESTING Note . [facility] Comment on above: TESTS RESULT FLAG UN ITS REF RANGE LAB Clinician Provided Cytology Information Source.............Cervix No. of containers..01 ThinPrep Vial Age Algo ACOG Krys... 21-29 01 FLAG LEGEND: L-Low Normal,H-High Normal,LL-Alert Low,HH-Alert High <-Panic Low,>-Panic High,A-Abnormal,AA-Critical Abnormal Performed at: 01 =[facility] [id number] Eliza Peters MD, IGP, RFX APTIMA HPV ASCU Note . [facility] Comment on above: TESTS RESULT FLAG UN ITS REF RANGE LAB DIAGNOSIS: 02 NEGATIVE FOR INTRAEPITHELIAL LESION OR MALIGNANCY. THIS SPECIMEN WAS RESCREENED PART OF OUR LICENSING REGISTRATION EXAMINER PROGRAM. Specimen adequacy: 02 Satisfactory for evaluation. No endocervical component is identified. Performed by: 02 Alyssia Funez, Summer Law Clerk (ASC) QC reviewed by: 02 Elena Dumont, Supervisory Summer Law Clerk (ASC) . 02 Note: Note 02 The [...] <-Panic Low,>-Panic High,A-Abnormal,AA-Critical Abnormal Performed at: [address] [phone] Eliza Peters MD, Performed at: = - [facility] [id number] Women'S Soccer Coach: Eliza Peters MD, Phone: [phone] Performed at: [facility] [id number] Women'S Soccer Coach: Eliza Peters MD, Phone: [phone] SPATULA[facility]ONE [facility] Urinalysis macro (dipstick) panel (U)on 04-06-2024 Bilirubin, UA Negative Negative - 4(70) +++ mg/dL [facility] Blood, UA Negative Negative - 50 Hosea/mcL [facility] Clarity, UA Clear [facility] Color, UA Yellow [facility] Glucose, UA Negative Negative - 1999(110) ++++ mg/dL [facility] Interpretation and review of laboratory results Abnormal [facility] Ketones, UA Positive Negative - 160(16) ++++ mg/dL [facility] Comment on above: trace Leukocytes, UA Negative Negative - 500+++ Greg/mcL [facility] Nitrite, UA Negative Negative - Positive [facility] pH, UA 7 5 - 9 [facility] Protein, UA Negative Negative - 1999(20) ++++ mg/dL [facility] Spec Grav, UA 1.025 1 - 1.03 [facility] Urobilinogen, UA 1.0 0.2 - 12 mg/dL [facility] Urinalysis macro (dipstick) panel (U)on 03-09-2024 Bilirubin, UA Negative Negative - 4(70) +++ mg/dL [facility] Blood, UA Negative Negative - 50 Hosea/mcL [facility] Clarity, UA Clear [facility] Color, UA Yellow [facility] Glucose, UA Negative Negative - 1999(110) ++++ mg/dL [facility] Interpretation and review of laboratory results Abnormal [facility] Ketones, UA Negative Negative - 160(16) ++++ mg/dL [facility] Leukocytes, UA Trace Negative - 500+++ Greg/mcL [facility] Nitrite, UA Negative Negative - Positive [facility] pH, UA 6.5 5 - 9 [facility] Protein, UA Negative Negative - 1999(20) ++++ mg/dL [facility] Spec Grav, UA 1.02 1 - 1.03 [facility] Urobilinogen, UA 0.2 0.2 - 12 mg/dL [facility] CBC AND AUTO DIFFon 02-19-20 ABSOLUTE BASOPHIL 0.0 X10E9/L Normal 0.0-0.2 [facility] Comment on above: Performed By: #### C NIKA JAEGER, #### [facility] ([id number]) [address] [place] [address] ABSOLUTE NEUTROPHIL 6.7 X10E9/L High 1.5-6.6 [facility] Comment on above: Performed By: #### C NIKA JAEGER, #### [facility] ([id number]) [address] [place] [address] Basophils/100 WBC (Bld) 0.3 % Normal P [facility] Comment on above: Performed By: #### C NIKA JAEGER, #### [facility] ([id number]) [address] [place] [address] Eosinophils (Bld) [#/Vol] 0.0 10*3/uL Normal 0.0-0.4 [facility] Comment on above: Performed By: #### C MIL CMP, #### [facility] ([id number]) [address] [place] [address] Eosinophils/100 WBC (Bld) 0.4 % Normal [facility] Comment on above: Performed By: #### Manish JAEGER CMP, #### [facility] ([id number]) [address] [place] [address] Erythrocyte distribution width (RBC) [Ratio] 14.2 % Normal 11.5-15.0 [facility] Comment on above: Performed By: #### Manish JAEGER CMP, #### [facility] ([id number]) [address] [place] [address] Hematocrit (Bld) [Volume fraction] 40.0 % Normal 35-47 [facility] Comment on above: Performed By: #### Manish JAEGER CMP, #### [facility] ([id number]) [address] [place] [address] Hemoglobin (Bld) [Mass/Vol] 13.7 g/dL Normal 11.7-15.5 [facility] Comment on above: Performed By: #### Manish JAEGER [facility], #### [facility] ([id number]) [address] [place] [address] 22289 Lymphocytes (Bld) [#/Vol] 1.6 10*3/uL Normal 1.0-3.5 [facility] Comment on above: Performed By: #### Manish JAEGER CMP, #### [facility] ([id number]) [address] [place] [address] 92159 Lymphocytes/100 WBC (Bld) 17.6 % Normal [facility] Comment on above: Performed By: #### Manish JAEGER CMP, #### [facility] ([id number]) [address] [place] [address] 56866 MCH (RBC) [Entitic mass] 31.3 pg Normal 27-34 [facility] Comment on above: Performed By: #### Manish JAEGER CMP, #### [facility] ([id number]) [address] [place] [address] 14521 MCHC (RBC) [Mass/Vol] 34.3 g/dL Normal 32-36 [facility] Comment on above: Performed By: #### Manish JAEGER CMP, #### [facility] ([id number]) [address] [place] [address] 80185 MCV (RBC) [Entitic vol] 91 fL Normal 80-100 [facility] Comment on above: Performed By: #### Manish JAEGER CMP, #### [facility] ([id number]) [address] [place] [address] 74201 Monocytes (Bld) [#/Vol] 0.6 10*3/uL Normal 0-0.9 [facility] Comment on above: Performed By: #### Manish JAEGER CMP, #### [facility] ([id number]) [address] [place] [address] 19844 Monocytes/100 WBC (Bld) 6.6 % Normal [facility] Comment on above: Performed By: #### Manish JAEGER CMP, #### [facility] ([id number]) [address] [place] [address] 33215 Neutrophils/100 WBC (Bld) 75.1 % Normal [facility] Comment on above: Performed By: #### Manish JAEGER CMP, #### [facility] ([id number]) [address] [place] [address] 82930 Platelet mean volume (Bld) [Entitic vol] 9.0 fL Normal 7-12 [facility] Comment on above: Performed By: #### Manish JAEGER CMP, #### [facility] ([id number]) [address] [place] [address] 54859 Platelets (Bld) [#/Vol] 173 10*3/uL Normal 150-450 [facility] Comment on above: Performed By: #### C MIL, CMP, #### [facility] ([id number]) [address] [place] [address] 63101 RBC COUNT 4.39 X10E12/L Normal 3.80-5.20 [facility] Comment on above: Performed By: #### C MIL, CMP, #### [facility] ([id number]) [address] [place] [address] 71489 WBC (Bld) [#/Vol] 8.9 10*3/uL Normal 4.0-11.0 [facility] Comment on above: Performed By: #### C MIL, CMP, #### [facility] ([id number]) [address] [place] [address] 05840 DRUG SCREEN, URINEon 024 AMPHETAMINE/METHAMP Negative Normal NEG [facility] Comment on above: Result Comment: AMPH /METH screening cut off = 1000 ng/mL Performed By: #### C NIKA JAEGER, #### [facility] ([id number]) [address] [place] [address] 76577 BARBITURATES Negative Normal NEG [facility] Comment on above: Result Comment: Marcela iturates screening cut off value = 200 ng/mL Performed By: #### C MIL, CMP, #### [facility] ([id number]) [address] [place] [address] [place] [address] BENZODIAZEPINES Negative Normal NEG [facility] Comment on above: Result Comment: Jose odiazepines screening cut off value = 200 ng/mL Performed By: #### C MIL, CMP, #### [facility] ([id number]) [address] [place] [address] 96965 CANNABINOIDS Negative Normal NEG [facility] Comment on above: Result Comment: Tre abinoids/THC screening cut off value = 50 ng/mL Performed By: #### C MIL, [facility], #### [facility] ([id number]) [address] [place] [address] 40063 COCAINE METABOLITE Negative Normal NEG [facility] Comment on above: Result Comment: Coca ine screening cut off value = 300 ng/mL Performed By: #### C MIL [facility], #### [facility] ([id number]) [address] [place] [address] 31501 ECSTASY Negative Normal NEG [facility] Comment on above: Result Comment: Ecst asy screening cut off value = 500 ng/mL This report is intended for use in clinical monitoring or management of patients. Performed By: #### C NIKA JAEGER, #### [facility] ([id number]) [address] [place] [address] 39667 METHADONE Negative Normal [facility] Comment on above: Result Comment: Meth adone screening cut off value = 300 ng/mL. Performed By: #### C NIKA JAEGER, #### [facility] ([id number]) [address] [place] [address] 24645 OPIATES Negative Normal NEG [facility] Comment on above: Result Comment: Opia krys screening cut off value = 300 ng/mL NOTE: This test is used for the detection of codeine, hydrocodone (>1000 ng/mL), morphine and hydromorphone (>900 ng/mL) in urine. Performed By: #### C MIL, CMP, #### [facility] ([id number]) [address] [place] [address] 33823 OXYCODONE Negative Normal NEG [facility] Comment on above: Result Comment: Oxyc odone screening cut off value = 300 ng/mL NOTE: This test is used for the detection of oxycodone and oxymorphone in urine. Performed By: #### C NIKA JAEGER, #### [facility] ([id number]) [address] [place] [address] 51356 PHENCYCLIDINE Negative Normal NEG [facility] Comment on above: Result Comment: Phen cyclidine screening cut off value = 25 ng/mL Performed By: #### C NIKA JAEGER, #### [facility] ([id number]) [address] [place] [address] 38253 HBV surface Ag IA Qlon 02-18 HEPATITIS B SURF AG Negative Normal NEG [facility] Comment on above: Performed By: #### C NIKA JAEGER, #### [facility] ([id number]) [address] [place] [address] 78875 HCG ( test) Ql (U)o n 02-19-2024 Interpretation and review of laboratory results Abnormal [facility] Preg Test, Ur Positive [facility] HCV Ab IA Qlon 02-19-2024 ANTI HCV W/PCR REFLX Non-Reactive Normal NRCT Pr [facility] Comment on above: Result Comment: If recent infection suspected, recommend repeat testing (>2 months). Dazbpi-bf-ujripq ratio is <0.80. Performed By: #### C NIKA JAEGER, #### [facility] ([id number]) [address] [place] [address] 21808 HGB A1C (GLYCO-HGB)on 2023 Glucose [Mass/Vol] 105 mg/dL [facility] Comment on above: Performed By: #### C NIKA JAEGER, #### [facility] ([id number]) [address] [place] [address] [place] [address] HbA1c (Bld) [Mass fraction] 5.3 % Normal 4.4-5.6 [facility] Comment on above: Result Comment: NOTE ADA Guidelines Result HgbA1c Normal : less than 5.7 % Prediabetes : 5.7 % to 6.4 % Diabetes : > 6.4 % Use with caution in patients with abnormal hemoglobin variants as the half-life of red blood cells and in vivo glycation rates are affected. Performed By: #### C MIL [facility], #### [facility] ([id number]) [address] [place], [place] [address] HIV 1+2 Ab+HIV1 p24 Ag IA Ql on 02-19-2024 HIV 1 and 2 Ab/Ag Screen Non-Reactive Normal NRCT [facility] Comment on above: Result Comment: This [...] or diagnoses. Performed By: #### C MIL, [facility], #### [facility] ([id number]) [address] [place] [address] 32928 Rubella virus IgG Qn (S)on RUBELLA IgG 119 IU/mL Normal [facility] Comment on above: Result Comment: Interpretation-------- <8 NEGATIVE-considered Not Immune 8-9 EQUIVOCAL-consider retesting with new specimen >9 POSITIVE-considered Immune Performed By: #### C MIL, [facility], #### [facility] ([id number]) [address] [place] [address] 82248 T. pallidum IgG+IgM IA Ql (S )on 02-19-2024 Syphilis Total <0.2 Normal 0.0-0.8 [facility] Comment on above: Result Comment: NON REACTIVE No serologic evidence of infection to Treponema pallidum (syphilis). Repeat testing may be considered in patients with suspected acute or primary syphilis in 2 to 4 weeks. Performed By: #### C MIL, [facility], #### [facility] ([id number]) [address] [place] [address] 71998 URINE CULTUREon 02-19-2024 Bacteria identified Cx Nom (U) CULTURE RESULTS 10-50,000 ORGANISMS/mL NORMAL UROGENITAL KACEY Normal [facility] Comment on above: Performed By: #### C MIL, [facility], #### [facility] ([id number]) [address] [place] [address] 81739 Urinalysis macro (dipstick) panel (U)on 02-19-2024 Bilirubin, UA Negative Negative - 4(70) +++ mg/dL [facility] Blood, UA Negative Negative - 50 Hosea/mcL [facility] Clarity, UA Clear [facility] Color, UA Yellow [facility] Glucose, UA Negative Negative - 1999(110) ++++ mg/dL [facility] Interpretation and review of laboratory results Normal [facility] Ketones, UA Negative Negative - 160(16) ++++ mg/dL [facility] Leukocytes, UA Negative Negative - 500+++ Greg/mcL [facility] Nitrite, UA Negative Negative - Positive [facility] pH, UA 5.5 5 - 9 [facility] Protein, UA Negative Negative - 2000(20) ++++ mg/dL [facility] Spec Grav, UA 1.015 1 - 1.03 [facility] Urobilinogen, UA 1.0 0.2 - 12 mg/dL [facility] POCT urinalysis dipstick onl yon 02-05-2024 External Poct Urine Bilirubin Negative [facility] External Poct Urine Blood Trace [facility] External Poct Urine Character clear [facility] External Poct Urine Color yellow [facility] External Poct Urine Glucose Negative [facility] External Poct Urine Ketones Negative [facility] External Poct Urine Leukocyte Esterase 1+ [facility] External Poct Urine Nitrite Negative [facility] External Poct Urine Ph 6.[address] [facility] External Poct Urine Protein Negative [facility] External Poct Urine Specific Carr[place]le 1.015 [facility] External Poct Urine Urobilinogen 0.2 [facility] URINE CULTUREon 02-05-2024 Bacteria identified Cx Nom (U) CULTURE RESULTS 10-50,000 ORGANISMS/mL NORMAL UROGENITAL KACEY Normal [facility] Comment on above: Performed By: #### 6 30-4 #### [facility] ([id number]) [address] [place] [address], [address] [place] [address] Alanine aminotransferase [En zymatic activity/volume] in Serum or PlasmaOrdered By: Krzysztof Montesinos on 11-24-2023 ALT [Catalytic activity/Vol] 9 U/L Normal 7-52 [facility] Comment on above: Performed By: #### C MP #### [facility] [address] Albumin [Mass/volume] in Ser um or Plasma by Bromocresol green (BCG) dye binding methoOrdered By: Krzysztof Montesinos on 11-24-2023 Albumin BCG dye [Mass/Vol] 4.3 g/dL 3.5-5.7 [facility] Alkaline phosphatase [Enzyma tic activity/volume] in Serum or PlasmaOrdered By: Krzysztof Montesinos on 11-24-2023 ALP [Catalytic activity/Vol] 39 U/L Normal 34-104 [facility] Comment on above: Performed By: #### C MP #### [facility] [address] Aspartate aminotransferase [ Enzymatic activity/volume] in Serum or PlasmaOrdered By: Krzysztof Montesinos on 11-24-2023 AST [Catalytic activity/Vol] 14 U/L Normal 13-39 [facility] Comment on above: Performed By: #### C MP #### [facility] [address] Bilirubin.total [Mass/volume ] in Serum or PlasmaOrdered By: Krzysztof Montesinos on 11-24-2023 Bilirubin [Mass/Vol] 1.0 mg/dL Normal 0.3-1.0 [facility] Comment on above: Performed By: #### C MP #### [facility] [address] Calcium [Mass/volume] in Ser um or PlasmaOrdered By: Krzysztof Montesinos on 11-24-2023 Calcium [Mass/Vol] 9.0 mg/dL Normal 8.6-10.3 [facility] Comment on above: Performed By: #### C MP #### [address] Carbon dioxide, total [Moles /volume] in Serum or PlasmaOrdered By: Krzysztof Montesinos on 11-24-2023 CO2 [Moles/Vol] 25.4 mmol/L Normal 21.0-31.0 [facility] Comment on above: Performed By: #### C MP #### [facility] [address] [place] [address] [place] Chloride [Moles/volume] in S delgado or PlasmaOrdered By: Krzysztof Montesinos on 11-24-2023 Chloride [Moles/Vol] 111 mmol/L High 98-107 [facility] Comment on above: Performed By: #### C MP #### [facility] [address] Comprehensive Metabolic Pane thomas 11-24-2023 Albumin [Mass/Vol] 4.3 g/dL Normal 3.5-5.7 [facility] Comment on above: Performed By: #### C MP #### [address] Creatinine Clr Calc Pharmacy 94.43 Normal [facility] Comment on above: Result Comment: PERF ORMED BY: [place] [address] PATHOLOGIST [employer] MARGARITA CUELLAR M.D. Performed By: #### C MP #### [address] GFR/1.73 sq M.predicted MDRD (S/P/Bld) [Vol rate/Area] mL/min/{1.73_m2} Normal [facility] Comment on above: Performed By: #### C MP #### [address] Creatinine [Mass/volume] in Serum or PlasmaOrdered By: Krzysztof Montesinos on 11-24-2023 Creatinine [Mass/Vol] 0.86 mg/dL Normal 0.60-1.20 [facility] Comment on above: Performed By: #### C MP #### [address] Glucose [Mass/volume] in Ser um or PlasmaOrdered By: Krzysztof Montesinos on 11-24-2023 Glucose [Mass/Vol] 94 mg/dL Normal 70-100 [facility] Comment on above: ADA recommended refe rence rangeRandom Glucose Reference Range is dependent on time and content of last meal. Glucose of more than 200 mg/dL in a nonstressed, ambulatory subject supports the diagnosis of Diabetes Mellitus. Result Comment: [place] om Glucose Reference Range is dependent on time and content of last meal. Glucose of more than 200 mg/dL in a nonstressed, ambulatory subject supports the diagnosis of Diabetes Mellitus. ADA recommended reference range Performed By: #### C MP #### [address] No Panel InformationOrdered By: Krzysztof Montesinos on 11-24-2023 Estimated GFR (CKD-EPI) > 60.0 mL/Min [facility] Creatinine Clearance (Chem 94.43 [facility] Potassium [Moles/volume] in Serum or PlasmaOrdered By: Krzysztof Montesinos on 11-24-2023 Potassium [Moles/Vol] 4.7 mmol/L Normal 3.5-5.1 [facility] Comment on above: Performed By: #### C MP #### [address] Protein [Mass/volume] in Ser um or PlasmaOrdered By: Krzysztof Montesinos on 11-24-2023 Protein [Mass/Vol] 6.7 g/dL Normal 6.4-8.9 [facility] Comment on above: Performed By: #### C MP #### [address] Serum globulin measurement b y calculation (mass/volume)Ordered By: Krzysztof Montesinos on 11-24-2023 Globulin (S) [Mass/Vol] 2.4 g/dL Normal [facility] Comment on above: Performed By: #### C MP #### [address] Serum or plasma albumin/glob ulin mass ratioOrdered By: Krzysztof Montesinos on 11-24-2023 Albumin/Globulin [Mass ratio] 1.8 {ratio} Normal [facility] Comment on above: Performed By: #### C MP #### [address] Serum or plasma anion gap de terminationOrdered By: Krzysztof Montesinos on 11-24-2023 Anion gap [Moles/Vol] 9.3 mmol/L Normal 6.0-15.0 [facility] Comment on above: Performed By: #### C MP #### [address] Sodium [Moles/volume] in Ser um or PlasmaOrdered By: Krzysztof Montesinos on 11-24-2023 Sodium [Moles/Vol] 141 mmol/L Normal 136-145 [facility] Comment on above: Performed By: #### C MP #### [facility] [address] [place] [address] [place] Urea nitrogen [Mass/volume] in Serum or PlasmaOrdered By: Krzysztof Montesinos on 11-24-2023 Urea nitrogen [Mass/Vol] 12 mg/dL Normal 7-25 [facility] Comment on above: Performed By: #### C MP #### [facility] [address] [place] [address] [place] Cholesterol [Mass/volume] in Serum or PlasmaOrdered By: Krzysztof Montesinos on 11-23-2023 Cholesterol [Mass/Vol] 129 mg/dL Low 140-200 [facility] Comment on above: Chol less than 200 m g/dl low riskChol 201-239 mg/dl borderline riskChol 240 mg/dl and greater high risk Result Comment: Chol less than 200 mg/dl low risk Chol 201-239 mg/dl borderline risk Chol 240 mg/dl and greater high risk Performed By: #### L IPID, TSH3 wRFLX, [id number] #### [facility] [address] Cholesterol in LDL Calc [Mas s/Vol]Ordered By: Krzysztof Montesinos on 11-23-2023 Cholesterol in LDL [Mass/Vol] 64 mg/dL 0-100 [facility] Comment on above: LDL ATP III CLASSIFI CATIONLDL less than 100 mg/dL OptimalLDL 100-129 mg/dL Near or above optimalLDL 130-159 mg/dL Borderline highLDL 160-189 mg/dL HighLDL greater than 189 mg/dL Very high Cholesterol in VLDL Calc [Ma ss/Vol]Ordered By: Krzysztof Montesinos on 11-23-2023 Cholesterol in VLDL [Mass/Vol] 7 mg/dL [facility] Lipid Panelon 11-23-2023 LDL Cholesterol,Calculated 64 mg/dL Normal 0-100 [facility] Comment on above: Result Comment: LDL ATP III CLASSIFICATION LDL less than 100 mg/dL Optimal LDL 100-129 mg/dL Near or above optimal LDL 130-159 mg/dL Borderline high LDL 160-189 mg/dL High LDL greater than 189 mg/dL Very high Performed By: #### L IPID, TSH3 wRFLX, [id number] #### [facility] [address] Triglyceride w/Reflex 39 mg/dL Normal 0-149 [facility] Comment on above: Result Comment: TRIG ATP III CLASSIFICATION TRIG less than 150 mg/dL Normal TRIG 150-199 mg/dL Borderline high TRIG 200-500 mg/dL High TRIG greater than 500 mg/dL Very high Standard traceable to the Center for Disease Conrtrol and Prevention (CDC) test method. Performed By: #### L IPID, TSH3 wRFLX, [id number] #### [facility] [address] VLDL CHOLESTEROL 7 mg/dL Normal [facility] Comment on above: Performed By: #### L IPID, TSH3 wRFLX, [id number] #### [facility] [address] Serum or plasma high density lipoprotein (HDL) cholesterol measurementOrdered By: Krzysztof Montesinos on 11-23-2023 Cholesterol in HDL [Mass/Vol] 57 mg/dL Normal 23-92 [facility] Comment on above: HDL CHOL ATP-III CLA SSIFICATION Cardiovascular RiskHDL > or equal to 60 mg/dL LOWHDL < 40 mg/dL HIGH Result Comment: HDL CHOL ATP-III CLASSIFICATION Cardiovascular Risk HDL > or equal to 60 mg/dL LOW HDL < 40 mg/dL HIGH Performed By: #### L IPID, TSH3 wRFLX, [id number] #### [facility] [address] Serum or plasma total choles terol/high density lipoprotein (HDL) cholesterol mass ratOrdered By: Krzysztof Montesinos on 11-23-2023 Cholesterol.total/Choles terol in HDL [Mass ratio] 2.3 {ratio} Normal <5.0 [facility] Comment on above: Performed By: #### L IPID, TSH3 wRFLX, [id number] #### [facility] [address] Thyroid Stim Hormone w/Rflxo n 11-23-2023 Thyroid Stim Hormone w/Rflx 1.52 u[iU]/mL Normal 0.45-5.33 [facility] Comment on above: Performed By: #### L IPID, TSH3 wRFLX, [id number] #### [facility] [address] Thyrotropin [Units/volume] i n Serum or PlasmaOrdered By: Krzysztof Montesinos on 11-23-2023 TSH Qn 1.52 m[IU]/L 0.45-5.33 [facility] Triglyceride [Mass/volume] i n Serum or PlasmaOrdered By: Krzysztof Montesinos on 11-23-2023 Triglyceride [Mass/Vol] 39 mg/dL 0-149 [facility] Comment on above: TRIG ATP III CLASSIF ICATIONTRIG less than 150 mg/dL NormalTRIG 150-199 mg/dL Borderline highTRIG 200-500 mg/dL High TRIG greater than 500 mg/dL Very highStandard traceable to the Center for Disease Conrtrol and Prevention (CDC) test method. Vitamin D 25 Hydroxy Totalon 11-23-2023 Vitamin D 25 Hydroxy Total 23.9 ng/mL Low 30-100 [facility] Comment on above: Result Comment: NATE MIN D STATUS 25(OH)VITAMIN D RANGE (ng/mL) Deficient <20 Insufficient 20 to <30 Sufficient 30 to 100 Reference: Shanthi MF,Ysabel NC, Jia CABRERA, et al. Evaluation,treatment, and prevention of vitamin D deficiency; an Endocrine Society clinical practice guideline. JCEM. 2010; 96(7):1911-30. PERFORMED BY: [place] [address] PATHOLOGIST [employer] MARGARITA CUELLAR M.D. Performed By: #### L IPID, TSH3 wRFLX, [id number] #### [place] [id number] [facility] Vitamin D+Metabolites [Mass/ volume] in Serum or PlasmaOrdered By: Krzysztof Montesinos on 11-23-2023 Vitamin D+Metabolites [Mass/Vol] 23.9 ng/mL Low 30-100 [facility] Comment on above: VITAMIN D STATUS 25( [place])VITAMIN D RANGE (ng/mL) Deficient <20 Insufficient 20 to <30Sufficient 30 to 100Reference: Shanthi MF,Ysabel NC, Jia CABRERA, et al. Evaluation,treatment, and prevention of vitamin D deficiency; an Endocrine Society clinical practice guideline. JCEM. 2010; 96(7):1911-30. BASIC METABOLIC PANLon 11-21 Anion gap [Moles/Vol] 6 mmol/L Normal 5-15 [facility] Comment on above: Performed By: #### C MIL CMP, #### [facility] ([id number]) [address] [place] [address] 53654 Calcium [Mass/Vol] 8.6 mg/dL Normal 8.5-10.5 [facility] Comment on above: Performed By: #### C BCA CMP, #### [facility] ([id number]) [address] [place] [address] 48900 Chloride [Moles/Vol] 108 mmol/L Normal 98-109 [facility] Comment on above: Performed By: #### C BCA CMP, #### [facility] ([id number]) [address] [place] [address] 30202 CO2 [Moles/Vol] 22 mmol/L Normal 22-32 [facility] Comment on above: Performed By: #### C BCA, CMP, #### [facility] ([id number]) [address] [place] [address] 71650 Creatinine [Mass/Vol] 0.84 mg/dL Normal 0.40-1.00 [facility] Comment on above: Result Comment: METH OD TRACEABLE TO IDMS STANDARD Performed By: #### C BCA CMP, #### [facility] ([id number]) [address] [place] [address] 35859 eGFR (CKD-EPI) NON-RACE DEPENDENT >90 Normal >59 [facility] Comment on above: Result Comment: Reported eGFR is based on the CKD-EPI 2020 equation that does not use a race coefficient. Performed By: #### C NIKA JAEGER, #### [facility] ([id number]) [address] [place] [address] 21498 Glucose [Mass/Vol] 98 mg/dL Normal 65-99 [facility] Comment on above: Performed By: #### Manish JAEGER CMP, #### [facility] ([id number]) [address] [place] [address] 05686 Potassium [Moles/Vol] 3.3 mmol/L Low 3.5-5.0 [facility] Comment on above: Performed By: #### Manish JAEGER CMP, #### [facility] ([id number]) [address] [place] [address] 60052 Sodium [Moles/Vol] 136 mmol/L Normal 134-146 [facility] Comment on above: Performed By: #### Manish JAEGER CMP, #### [facility] ([id number]) [address] [place] [address] 57619 Urea nitrogen [Mass/Vol] 14 mg/dL Normal 5-23 [facility] Comment on above: Performed By: #### C NIKA JAEGER, #### [facility] ([id number]) [address] [place] [address] 98737 CBC AND AUTO DIFFon 11-22-19 24 ABSOLUTE BASOPHIL 0.0 X10E9/L Normal 0.0-0.2 [facility] Comment on above: Performed By: #### C MIL CMP, #### [facility] ([id number]) [address] [place] [address] 75707 ABSOLUTE NEUTROPHIL 5.3 X10E9/L Normal 1.5-6.6 [facility] Comment on above: Performed By: #### C NIKA JAEGER, #### [facility] ([id number]) [address] [place] [address] 12510 Basophils/100 WBC (Bld) 0.5 % Normal [facility] Comment on above: Performed By: #### Manish JAEGER CMP, #### [facility] ([id number]) [address] [place] [address] 99022 Eosinophils (Bld) [#/Vol] 0.1 10*3/uL Normal 0.0-0.4 [facility] Comment on above: Performed By: #### Manish JAEGER [facility], #### [facility] ([id number]) [address] [place] [address] 78016 Eosinophils/100 WBC (Bld) 0.7 % Normal [facility] Comment on above: Performed By: #### Manish JAEGER [facility], #### [facility] ([id number]) [address] [place] [address] 29868 Erythrocyte distribution width (RBC) [Ratio] 14.2 % Normal 11.5-15.0 [facility] Comment on above: Performed By: #### C NIKA JAEGER, #### [facility] ([id number]) [address] [place] [address] 90843 Hematocrit (Bld) [Volume fraction] 41.6 % Normal 35-47 [facility] Comment on above: Performed By: #### Manish JAEGER CMP, #### [facility] ([id number]) [address] [place] [address] 78513 Hemoglobin (Bld) [Mass/Vol] 14.3 g/dL Normal 11.7-15.5 [facility] Comment on above: Performed By: #### Manish JAEGER CMP, #### [facility] ([id number]) [address] [place] [address] 02102 Lymphocytes (Bld) [#/Vol] 1.8 10*3/uL Normal 1.0-3.5 [facility] Comment on above: Performed By: #### Manish JAEGER CMP, #### [facility] ([id number]) [address] [place] [address] 66384 Lymphocytes/100 WBC (Bld) 23.3 % Normal [facility] Comment on above: Performed By: #### Manish JAEGER CMP, #### [facility] ([id number]) [address] [place] [address] 55438 MCH (RBC) [Entitic mass] 30.6 pg Normal 27-34 [facility] Comment on above: Performed By: #### Manish JAEGER [facility], #### [facility] ([id number]) [address] [place] [address] 98852 MCHC (RBC) [Mass/Vol] 34.5 g/dL Normal 32-36 [facility] Comment on above: Performed By: #### Manish JAEGER CMP, #### [facility] ([id number]) [address] [place] [address] 98429 MCV (RBC) [Entitic vol] 89 fL Normal 80-100 [facility] Comment on above: Performed By: #### Manish JAEGER CMP, #### [facility] ([id number]) [address] [place] [address] 43201 Monocytes (Bld) [#/Vol] 0.5 10*3/uL Normal 0-0.9 [facility] Comment on above: Performed By: #### C BCA, CMP, #### [facility] ([id number]) [address] [place] [address] 58035 Monocytes/100 WBC (Bld) 6.6 % Normal [facility] Comment on above: Performed By: #### C BCA, CMP, #### [facility] ([id number]) [address] [place] [address] 22161 Neutrophils/100 WBC (Bld) 68.9 % Normal [facility] Comment on above: Performed By: #### C BCA, CMP, #### [facility] ([id number]) [address] [place] [address] 19493 Platelet mean volume (Bld) [Entitic vol] 9.0 fL Normal 7-12 [facility] Comment on above: Performed By: #### C BCA, CMP, #### [facility] ([id number]) [address] [place] [address] 94437 Platelets (Bld) [#/Vol] 186 10*3/uL Normal 150-450 [facility] Comment on above: Performed By: #### C BCA, CMP, #### [facility] ([id number]) [address] [place] [address] [place] [address] RBC COUNT 4.68 X10E12/L Normal 3.80-5.20 [facility] Comment on above: Performed By: #### C BCA, CMP, #### [facility] ([id number]) [address] [place] [address] 44520 WBC (Bld) [#/Vol] 7.7 10*3/uL Normal 4.0-11.0 [facility] Comment on above: Performed By: #### C BCA, CMP, #### [facility] ([id number]) [address] [place] [address] 34112 DRUG SCREEN, URINEon 024 AMPHETAMINE/METHAMP Negative Normal NEG [facility] Comment on above: Result Comment: AMPH /METH screening cut off = 1000 ng/mL Performed By: #### C BCA, [facility], #### [facility] ([id number]) [address] [place] [address] 08828 BARBITURATES Negative Normal NEG [facility] Comment on above: Result Comment: Marcela iturates screening cut off value = 200 ng/mL Performed By: #### C BCA, [facility], #### [facility] ([id number]) [address] [place] [address] 55155 BENZODIAZEPINES Negative Normal NEG [facility] Comment on above: Result Comment: Jose odiazepines screening cut off value = 200 ng/mL Performed By: #### C BCA, [facility], #### [facility] ([id number]) [address] [place] [address] 10538 CANNABINOIDS Negative Normal NEG [facility] Comment on above: Result Comment: Tre abinoids/THC screening cut off value = 50 ng/mL Performed By: #### C BCA, [facility], #### [facility] ([id number]) [address] [place] [address] 77848 COCAINE METABOLITE Negative Normal NEG [facility] Comment on above: Result Comment: Coca ine screening cut off value = 300 ng/mL Performed By: #### C BCA, [facility], #### [facility] ([id number]) [address] [place] [address] 60436 ECSTASY Negative Normal NEG [facility] Comment on above: Result Comment: Ecst asy screening cut off value = 500 ng/mL This report is intended for use in clinical monitoring or management of patients. Performed By: #### C NIKA JAEGER, 04376-9 #### [facility] ([id number]) [address] [place] [address] 84640 METHADONE Negative Normal NEG [facility] Comment on above: Result Comment: Meth adone screening cut off value = 300 ng/mL. Performed By: #### C NIKA JAEGER, #### [facility] ([id number]) [address] [place] [address] 48362 OPIATES Negative Normal NEG [facility] Comment on above: Result Comment: Opia krys screening cut off value = 300 ng/mL NOTE: This test is used for the detection of codeine, hydrocodone (>1000 ng/mL), morphine and hydromorphone (>900 ng/mL) in urine. Performed By: #### C NIKA JAEGER, #### [facility] ([id number]) [address] [place] [address] 07862 OXYCODONE Negative Normal NEG [facility] Comment on above: Result Comment: Oxyc odone screening cut off value = 300 ng/mL NOTE: This test is used for the detection of oxycodone and oxymorphone in urine. Performed By: #### C NIKA JAEGER, #### [facility] ([id number]) [address] [place] [address] 47577 PHENCYCLIDINE Negative Normal NEG [facility] Comment on above: Result Comment: Phen cyclidine screening cut off value = 25 ng/mL Performed By: #### C NIKA JAEGER, 78974-6 #### [facility] ([id number]) [address] [place] [address] 93195 ECG 12 lead ECGon 11-22-2023 ECG 12 lead ECG [facility] Main [address] [address] Electrocardiograph Report Signed Patient: Bassam Collado MR#: [id number] : 2000 Acct:[id number] Age/Sex: 23 / F ADM Date: 11/22/23 Loc: Room: [address] [place] [address] Type: ADM IN Attending Dr: Krzysztof Montesinos [...] Sinus rhythm with sinus arrhythmia with short NV Otherwise normal ECG No previous ECGs available Confirmed by HODAN ROBERT [facility], GEMA ([id number]) on 11/23/2023 9:57:14 AM Referred By: Electronically Signed By:GEMA PETTIT MD [facility] Transcribed By: MUS Signed By Gema Pettit MD, [facility] 11/23/23 0957 Normal [facility] ETHANOLon 11-22-2023 Ethanol [Mass/Vol] mg/dL Normal 0.00-0.08 [facility] Comment on above: Result Comment: This report is intended for use in clinical monitoring or management of patients. Performed By: #### C NIKA JAEGER, 98900-2 #### [facility] ([id number]) [address] [place] [address] 02382 HCG ( test) Ql (U)o n 11-22-2023 Beta HCG ( test) Ql (U) Negative Normal NEG [facility] Comment on above: Performed By: #### 2 106-3 #### [facility] ([id number]) [address] [place] [address] 60216 TSH Qnon 11-22-2023 TSH 1.42 uIU/mL Normal 0.49-4.67 [facility] Comment on above: Performed By: #### C NIKA JAEGER, 86521-0 #### [facility] ([id number]) [address] [place] [address] [place] [address] URN MACROSCOPIC NURon 2023 BILIRUBIN BAO Negative Normal NEG [facility] Comment on above: Performed By: #### N UM #### [facility] ([id number]) [address] [place] [address] [place] [address] BLOOD/HGB BAO Negative Normal NEG [facility] Comment on above: Performed By: #### N UM #### [facility] ([id number]) [address] [place] [address] [place] [address] GLUCOSE BAO Negative Normal NEG [facility] Comment on above: Performed By: #### N UM #### [facility] ([id number]) [address] [place] [address] [place] [address] KETONES BAO Negative Normal NEG [facility] Comment on above: Performed By: #### N UM #### [facility] ([id number]) [address] [place] [address] [place] [address] LEUKOCYTE ESTERASE BAO Negative Normal NEG [facility] Comment on above: Performed By: #### N UM #### [facility] ([id number]) [address] [place] [address] [place] [address] NITRITE BAO Negative Normal NEG [facility] Comment on above: Performed By: #### N UM #### [facility] ([id number]) [address] [place] [address] [place] [address] PH BAO 6.5 Normal 5.0-8.5 [facility] Comment on above: Performed By: #### N UM #### [facility] ([id number]) [address] [place] [address] [place] [address] PROTEIN BAO Negative Normal NEG [facility] Comment on above: Performed By: #### N UM #### [facility] ([id number]) [address] [place], [place] [address], [place] [address] SPECIFIC GRAVITY BAO 1.010 Normal 1.003-1.035 [facility] Comment on above: Performed By: #### N UM #### [facility] ([id number]) [address] [place] [address] UROBILINOGEN BAO 0.2 eu/dL Normal <1.1 [facility] Comment on above: Performed By: #### N UM #### [facility] ([id number]) [address] [place] [address] HCG.beta subunit IA 3rd IS Q non 08-29-2023 SERUM B HCG,3RD I.S. <5 Normal [facility] Comment on above: Result Comment: NEW [...] neoplasms. Performed By: #### 2 0415-6 #### [facility] ([id number]) [address], [address] [place] [address] HCG.beta subunit IA 3rd IS Q non 08-22-2023 HCG.beta subunit Qn 11 m[IU]/mL Normal [facility] Comment on above: Result Comment: NEW [...] neoplasms. Performed By: #### 2 0415-6 #### [facility] ([id number]) [address] [place] [address], [address] [place] [address] HCG.beta subunit IA 3rd IS Q non 08-13-2023 HCG.beta subunit Qn 60 m[IU]/mL Normal [facility] Comment on above: Result Comment: NEW [...] neoplasms. Performed By: #### 2 0415-6 #### [facility] ([id number]) [address] [place] [address], [address] [place] [address] HCG.beta subunit IA 3rd IS Q non 08-06-2023 HCG.beta subunit Qn 394 m[IU]/mL Normal [facility] Comment on above: Result Comment: NEW [...] neoplasms. Performed By: #### 2 0415-6 #### [facility] ([id number]) [address] [place] [address], [address] [place] [address] CBC AND AUTO DIFFon 07-30-19 24 ABSOLUTE BASOPHIL 0.0 X10E9/L Normal 0.0-0.2 [facility] Comment on above: Performed By: #### C MIL [facility], #### [facility] ([id number]) [address] [place] [address] 12591 ABSOLUTE NEUTROPHIL 6.4 X10E9/L Normal 1.5-6.6 [facility] Comment on above: Performed By: #### C NIKA JAEGER, #### [facility] ([id number]) [address] [place] [address] 72601 Basophils/100 WBC (Bld) 0.5 % Normal P [facility] Comment on above: Performed By: #### C NIKA JAEGER, #### [facility] ([id number]) [address] [place] [address] 10686 Eosinophils (Bld) [#/Vol] 0.0 10*3/uL Normal 0.0-0.4 [facility] Comment on above: Performed By: #### C NIKA JAEGER, #### [facility] ([id number]) [address] [place] [address] 09688 Eosinophils/100 WBC (Bld) 0.2 % Normal [facility] Comment on above: Performed By: #### Manish JAEGER CMP, #### [facility] ([id number]) [address] [place] [address] 08723 Erythrocyte distribution width (RBC) [Ratio] 14.2 % Normal 11.5-15.0 [facility] Comment on above: Performed By: #### Manish JAEGER CMP, #### [facility] ([id number]) [address] [place] [address] 53434 Hematocrit (Bld) [Volume fraction] 43.4 % Normal 35-47 [facility] Comment on above: Performed By: #### Manish JAEGER CMP, #### [facility] ([id number]) [address] [place] [address] 02386 Hemoglobin (Bld) [Mass/Vol] 14.9 g/dL Normal 11.7-15.5 [facility] Comment on above: Performed By: #### Manish JAEGER CMP, #### [facility] ([id number]) [address] [place] [address] 71377 Lymphocytes (Bld) [#/Vol] 1.4 10*3/uL Normal 1.0-3.5 [facility] Comment on above: Performed By: #### Manish JAEGER CMP, #### [facility] ([id number]) [address] [place] [address] 45519 Lymphocytes/100 WBC (Bld) 16.3 % Normal [facility] Comment on above: Performed By: #### Manish JAEGER CMP, #### [facility] ([id number]) [address] [place] [address] 09180 MCH (RBC) [Entitic mass] 30.9 pg Normal 27-34 [facility] Comment on above: Performed By: #### Manish JAEGER CMP, #### [facility] ([id number]) [address] [place] [address] 96421 MCHC (RBC) [Mass/Vol] 34.4 g/dL Normal 32-36 [facility] Comment on above: Performed By: #### Manish JAEGER CMP, #### [facility] ([id number]) [address] [place] [address] 45716 MCV (RBC) [Entitic vol] 90 fL Normal 80-100 [facility] Comment on above: Performed By: #### Manish JAEGER CMP, #### [facility] ([id number]) [address] [place] [address] 20125 Monocytes (Bld) [#/Vol] 0.7 10*3/uL Normal 0-0.9 [facility] Comment on above: Performed By: #### Manish JAEGER CMP, #### [facility] ([id number]) [address] [place] [address] 24161 Monocytes/100 WBC (Bld) 7.8 % Normal [facility] Comment on above: Performed By: #### Manish JAEGER CMP, #### [facility] ([id number]) [address] [place] [address] 68235 Neutrophils/100 WBC (Bld) 75.2 % Normal [facility] Comment on above: Performed By: #### Manish JAEGER CMP, #### [facility] ([id number]) [address] [place] [address] 17225 Platelet mean volume (Bld) [Entitic vol] 8.5 fL Normal 7-12 [facility] Comment on above: Performed By: #### C NIKA JAEGER, #### [facility] ([id number]) [address] [place] [address] 94311 Platelets (Bld) [#/Vol] 188 10*3/uL Normal 150-450 [facility] Comment on above: Performed By: #### C MIL CMP, #### [facility] ([id number]) [address] [place] [address] 18421 RBC COUNT 4.83 X10E12/L Normal 3.80-5.20 [facility] Comment on above: Performed By: #### C MIL CMP, #### [facility] ([id number]) [address] [place] [address] 52481 WBC (Bld) [#/Vol] 8.5 10*3/uL Normal 4.0-11.0 [facility] Comment on above: Performed By: #### C MIL CMP, #### [facility] ([id number]) [address] [place] [address] 97192 COMPREHENSIVE METABOLIC PANE Thomas 07-30-2023 Albumin [Mass/Vol] 4.7 g/dL Normal 3.2-5.3 [facility] Comment on above: Performed By: #### C MIL CMP, #### [facility] ([id number]) [address] [place] [address] 34932 ALP [Catalytic activity/Vol] 57 U/L Normal 39-130 [facility] Comment on above: Performed By: #### C BCA, CMP, #### [facility] ([id number]) [address] [place] [address] 52167 ALT [Catalytic activity/Vol] 12 U/L Normal 0-31 [facility] Comment on above: Performed By: #### C BCA, CMP, #### [facility] ([id number]) [address] [place] [address] 45539 Anion gap [Moles/Vol] 6 mmol/L Normal 5-15 [facility] Comment on above: Performed By: #### C BCA, CMP, #### [facility] ([id number]) [address] [place] [address] 45135 AST [Catalytic activity/Vol] 18 U/L Normal 0-41 [facility] Comment on above: Performed By: #### C BCA, CMP, #### [facility] ([id number]) [address] [place] [address] 97808 Bilirubin [Mass/Vol] 0.8 mg/dL Normal 0.3-1.2 [facility] Comment on above: Performed By: #### C BCA, CMP, #### [facility] ([id number]) [address] [place] [address] 93864 Calcium [Mass/Vol] 9.4 mg/dL Normal 8.5-10.5 [facility] Comment on above: Performed By: #### C BCA, CMP, #### [facility] ([id number]) [address] [place] [address] [place] [address] Chloride [Moles/Vol] 107 mmol/L Normal 98-109 [facility] Comment on above: Performed By: #### C BCA, CMP, #### [facility] ([id number]) [address] [place] [address] 40815 CO2 [Moles/Vol] 23 mmol/L Normal 22-32 [facility] Comment on above: Performed By: #### C BCA, CMP, #### [facility] ([id number]) [address] [place] [address] 20280 Creatinine [Mass/Vol] 0.63 mg/dL Normal 0.40-1.00 [facility] Comment on above: Result Comment: METH OD TRACEABLE TO IDMS STANDARD Performed By: #### C NIKA JAEGER, #### [facility] ([id number]) [address] [place] [address] 19197 eGFR (CKD-EPI) NON-RACE DEPENDENT >90 Normal >59 [facility] Comment on above: Result Comment: Reported eGFR is based on the CKD-EPI 2020 equation that does not use a race coefficient. Performed By: #### C NIKA JAEGER, #### [facility] ([id number]) [address] [place] [address] 01232 Glucose [Mass/Vol] 92 mg/dL Normal 65-99 [facility] Comment on above: Performed By: #### C NIKA JAEGER, #### [facility] ([id number]) [address] [place] [address] 14106 Potassium [Moles/Vol] 3.5 mmol/L Normal 3.5-5.0 [facility] Comment on above: Performed By: #### C NIKA JAEGER, #### [facility] ([id number]) [address] [place] [address] 15956 Protein [Mass/Vol] 7.8 g/dL Normal 6.0-8.0 [facility] Comment on above: Performed By: #### C NIKA JAEGER, #### [facility] ([id number]) [address] [place] [address] 34807 Sodium [Moles/Vol] 136 mmol/L Normal 134-146 [facility] Comment on above: Performed By: #### C NIKA JAEGER, #### [facility] ([id number]) [address] [place] [address] 16168 Urea nitrogen [Mass/Vol] 12 mg/dL Normal 5-23 [facility] Comment on above: Performed By: #### Manish JAEGER [facility], 98980-0 #### [facility] ([id number]) [address] [place] [address] 97049 HCG.beta subunit IA 3rd IS Q non 07-30-2023 [place] [address] m[IU]/mL Normal P [facility] Comment on above: Result Comment: NEW [...] or nontrophoblastic neoplasms. Performed By: #### C MIL [facility], 72403-3 #### [facility] ([id number]) [address] [place] [address] 38994 US PREG LESS THAN 14 WKS WIT [...] Rodrigues MD on 07/30/2023 2:51 PM Normal [facility] US ABDOMEN LIMITEDon 024 US ABDOMEN LIMITED EXAMINATION: LIMITED ABDOMINAL ULTRASOUND 05/29/2023 9:27 am COMPARISON: None. HISTORY: ORDERING SYSTEM PROVIDED HISTORY: Abdominal mass, right lower quadrant TECHNOLOGIST PROVIDED HISTORY: This procedure can be scheduled via [employer]. Access your [employer] account by visiting [employer] RUQ lump with straining or sitting up. [...] Zay Boyce MD 05/29/23 Final result Normal [facility] CBC WITH DIFFon 02-24-2023 ABS BASOPHIL 0.04 x10^3ul Normal (0.00 - 0.16) [facility] Comment on above: Order Comment: FACIL ITY: [facility] [id number] Performed By: #### C BC/D, CHEM-C, TSHT34, B12+, MG #### [facility] [address] [place], [address] ABS EOSINOPHIL 0.08 x10^3ul Normal (0.00 - 0.40) [facility] Comment on above: Order Comment: FACIL ITY: [facility] [id number] Performed By: #### C BC/D, CHEM-C, TSHT34, B12+, MG #### [facility] [address] [place], [address] ABS IMMATURE GRANS 0.01 x10^3ul Normal (0.00 - 0.11) [facility] Comment on above: Order Comment: FACIL ITY: [facility] [id number] Performed By: #### C BC/D, CHEM-C, TSHT34, B12+, MG #### [facility] [address] [facility], [address] ABS LYMPHOCYTE 2.28 x10^3ul Normal (0.96 - 5.40) [facility] Comment on above: Order Comment: FACIL ITY: [facility] [id number] Performed By: #### C BC/D, CHEM-C, TSHT34, B12+, MG #### [facility] [address] [facility], [address] ABS MONOCYTE 0.70 x10^3ul Normal (0.10 - 1.00) [facility] Comment on above: Order Comment: FACIL ITY: [facility] [id number] Performed By: #### C BC/D, CHEM-C, TSHT34, B12+, MG #### [facility] [address] [facility], [address] ABS NEUTROPHIL 3.91 x10^3ul Normal (1.50 - 7.00) [facility] Comment on above: Order Comment: FACIL ITY: [facility] [id number] Performed By: #### C BC/D, CHEM-C, TSHT34, B12+, MG #### [facility] [address] [facility], [address] Basophils/100 WBC (Bld) 0.6 % Normal () [facility] Comment on above: Order Comment: FACIL ITY: [facility] [id number] Performed By: #### C BC/D, CHEM-C, TSHT34, B12+, MG #### [facility] [address] [place], [address] Eosinophils/100 WBC (Bld) 1.1 % Normal () [facility] Center Comment on above: Order Comment: FACIL ITY: [facility] [id number] Performed By: #### C BC/D, CHEM-C, TSHT34, B12+, MG #### [facility] [address] [place], [address] Hematocrit (Bld) [Volume fraction] 46.1 % Normal (37.0 - 47.0) [facility] Comment on above: Order Comment: FACIL ITY: [facility] [id number] Performed By: #### C BC/D, CHEM-C, TSHT34, B12+, MG #### [facility] [address] [place], [address] Hemoglobin (Bld) [Mass/Vol] 15.3 g/dL Normal (12.0 - 16.0) [facility] Comment on above: Order Comment: FACIL ITY: [facility] [id number] Performed By: #### C BC/D, CHEM-C, TSHT34, B12+, MG #### [facility] [address] [place], [address] IMMATURE GRANS (IG) 0.1 % Normal () [facility] Comment on above: Order Comment: FACIL ITY: [facility] [id number] Performed By: #### C BC/D, CHEM-C, TSHT34, B12+, MG #### [facility] [address] [place], [address] LYMPS 32.5 % Normal () [facility] Comment on above: Order Comment: FACIL ITY: [facility] [id number] Performed By: #### C BC/D, CHEM-C, TSHT34, B12+, MG #### [facility] [address] [place], [address] MCH (RBC) [Entitic mass] 30.5 pg Normal (27 .0 - 33.0) [facility] Comment on above: Order Comment: FACIL ITY: [facility] [id number] Performed By: #### C BC/D, CHEM-C, TSHT34, B12+, MG #### [facility] [address] [place], [address] MCHC (RBC) [Mass/Vol] 33.2 g/dL Normal (30.0 - 37.0) [facility] Comment on above: Order Comment: FACIL ITY: [facility] [id number] Performed By: #### C BC/D, CHEM-C, TSHT34, B12+, MG #### [facility] [address] [place], [address] MCV (RBC) [Entitic vol] 92.0 fL Normal (81. 0 - 99.0) [facility] Comment on above: Order Comment: FACIL ITY: [facility] [id number] Performed By: #### C BC/D, CHEM-C, TSHT34, B12+, MG #### [facility] [address] [place], [address] MONOS 10.0 % Normal () [facility] Comment on above: Order Comment: FACIL ITY: [facility] [id number] Performed By: #### C BC/D, CHEM-C, TSHT34, B12+, MG #### [facility] [address] [place], [address] PLT 201 x10^3ul Normal (130 - 400) [facility] Comment on above: Order Comment: FACIL ITY: [facility] [id number] Performed By: #### C BC/D, CHEM-C, TSHT34, B12+, MG #### [facility] [address] [place], [address] RBC 5.01 x10^6ul Normal (4.20 - 5.40) [facility] Comment on above: Order Comment: FACIL ITY: [facility] [id number] Performed By: #### C BC/D, CHEM-C, TSHT34, B12+, MG #### [facility] [address] [place], [address] RDW-SD 46.7 fl Normal (37.0 - 49.0) [facility] Comment on above: Order Comment: FACIL ITY: [facility] [id number] Performed By: #### C BC/D, CHEM-C, TSHT34, B12+, MG #### [facility] [address] [place], [address] SEGS 55.7 % Normal () [facility] Comment on above: Order Comment: FACIL ITY: [facility] [id number] Performed By: #### C BC/D, CHEM-C, TSHT34, B12+, MG #### [facility] [address] [place], [address] WBC 7.02 x10^3ul Normal (3.80 - 10.60) [facility] Comment on above: Order Comment: FACIL ITY: [facility] [id number] Performed By: #### C BC/D, CHEM-C, TSHT34, B12+, MG #### [facility] [address] [place], [address] COMP METABOLIC PANEL W/GFRon 02-24-2023 Albumin [Mass/Vol] 4.8 g/dL Normal (3.5 - 5.0) [facility] Comment on above: Performed By: #### C BC/D, CHEM-C, TSHT34, B12+, MG #### [facility] [address] [place], [address] ALK PHOS 63 U/L Normal (38 - 126) [place] [facility] Comment on above: Performed By: #### C BC/D, CHEM-C, TSHT34, B12+, MG #### [place] [facility] [address] [place], [address] ALT [Catalytic activity/Vol] 18 U/L Normal (1 - 35) [place] [facility] Comment on above: Performed By: #### C BC/D, CHEM-C, TSHT34, B12+, MG #### [facility] [address] [place], [address] AST [Catalytic activity/Vol] 22 U/L Normal (15 - 46) [facility] Comment on above: Performed By: #### C BC/D, CHEM-C, TSHT34, B12+, MG #### [place] [facility] [address] [place], [address] Bilirubin [Mass/Vol] 1.0 mg/dL Normal (0.2 - 1.3) Izzy mikey [facility] Comment on above: Performed By: #### C BC/D, CHEM-C, TSHT34, B12+, MG #### [place] [facility] [address] [place], [address] Calcium [Mass/Vol] 9.6 mg/dL Normal (8.6 - 10.6) [facility] do [facility] Comment on above: Performed By: #### C BC/D, CHEM-C, TSHT34, B12+, MG #### [facility] [address] [place], [address] Chloride [Moles/Vol] 105 mmol/L Normal (98 - 107) [facility] Comment on above: Performed By: #### C BC/D, CHEM-C, TSHT34, B12+, MG #### [place] [facility] [address] [place], [address] CO2 [Moles/Vol] 24 mmol/L Normal (22 - 30) [facility] Comment on above: Performed By: #### C BC/D, CHEM-C, TSHT34, B12+, MG #### [facility] [address] [place], [address] Creatinine [Mass/Vol] 0.67 mg/dL Normal (0.52 - 1.04) [facility] Comment on above: Performed By: #### C BC/D, CHEM-C, TSHT34, B12+, MG #### [facility] [address] [place], [address] GFR- AMER 132.0 ML/M1.7 Normal (60.0 - 140.1) [facility] Comment on above: Performed By: #### C BC/D, CHEM-C, TSHT34, B12+, MG #### [facility] [address] [place], [address] GFR-NON AFRIC-AMER 109.1 ML/M1.7 Normal (60.0 - 115.8) [facility] Comment on above: Performed By: #### C BC/D, CHEM-C, TSHT34, B12+, MG #### [facility] [address] [place], [address] Glucose [Mass/Vol] 76 mg/dL Normal (74 - 106) [facility] Comment on above: Performed By: #### C BC/D, CHEM-C, TSHT34, B12+, MG #### [place] [facility] [address] [place], [address] Potassium [Moles/Vol] 4.0 mmol/L Normal (3.5 - 5.1) [facility] Comment on above: Performed By: #### C BC/D, CHEM-C, TSHT34, B12+, MG #### [facility] [address] [place], [address] Protein [Mass/Vol] 7.5 g/dL Normal (6.3 - 8.2) [place] [facility] Comment on above: Performed By: #### C BC/D, CHEM-C, TSHT34, B12+, MG #### [facility] [address] [place], [address] Sodium [Moles/Vol] 143 mmol/L Normal (137 - 145) [place] o [facility] Comment on above: Performed By: #### C BC/D, CHEM-C, TSHT34, B12+, MG #### [place] [facility] [address] [place], [address] Urea nitrogen [Mass/Vol] 12 mg/dL Normal (7 - 17) [place] [facility] Comment on above: Performed By: #### C BC/D, CHEM-C, TSHT34, B12+, MG #### [place] [facility] [address] [place], [address] MAGNESIUMon 02-24-2023 Magnesium [Mass/Vol] 1.8 mg/dL Normal (1.6 - 2.3) Izzy mikey [facility] Comment on above: Performed By: #### C BC/D, CHEM-C, TSHT34, B12+, MG #### [place] [facility] [address] [place], [address] T3 FREE, T4 FREE AND TSHon 1 Free T3 [Mass/Vol] 5.32 pg/mL Normal (2.32 - 6.09) [facility] Comment on above: Performed By: #### C BC/D, CHEM-C, TSHT34, B12+, MG #### [place] [facility] [address] [place], [address] Free T4 [Mass/Vol] 1.45 ng/dL Normal (0.78 - 2.35) [place] [facility] Comment on above: Performed By: #### C BC/D, CHEM-C, TSHT34, B12+, MG #### [place] [facility] [address] [facility], [address] TSH Qn 1.43 m[IU]/L Normal (0.470 - 4.680) [facility] Comment on above: Performed By: #### C BC/D, CHEM-C, TSHT34, B12+, MG #### [facility] [address] [facility], [address] VIT B12 AND FOLATEon 023 Cobalamin (Vitamin B12) [Mass/Vol] 653 pg/mL Normal (239 - 931) [facility] Comment on above: Performed By: #### C BC/D, CHEM-C, TSHT34, B12+, MG #### [facility] [address] [facility], [address] FOLIC ACID >20.0 High (2.8 - 20.0) [facility] Comment on above: Performed By: #### C BC/D, CHEM-C, TSHT34, B12+, MG #### [facility] [address] [facility], [address] HCG, ,Urineon 11-14 Beta HCG ( test) Ql (U) Negative Normal NEG [facility] Comment on above: Performed By: #### U HCG #### [facility] [address] [place] [address] Women'S Soccer Coach: Natasha Bragg MD Surgical Pathologyon 023 Surgical Pathology (NOTE) Path Number: [id number] -- Diagnosis -- TERMINAL ILEUM, BIOPSY: -UNREMARKABLE [...] Microscopic Description Microscopic examination performed. Processing Lab: [facility] [address] [place] [address] Interpretation Performed at [facility] [address] [place] [id number] SURGICAL PATHOLOGY CONSULTATION Patient Name: BASSAM COLLADO [facility] Rec: [id number] [facility] PATHOLOGISTS [facility] EMERGENCY DEPART[facility] ANATOMIC PATHOLOGY [address] [place], [place] [address] Normal [facility] Comment on above: Performed By: #### P PPVS #### [address] [address] Women'S Soccer Coach: Alex Deleon MD Calprotectin, Fecalon 2022 Calprotectin, Fecal 7 ug/g Normal <=49 [facility] Comment on above: Result Comment: (NOT E) REFERENCE INTERVAL: Calprotectin, Fecal by Immunoassay Less than 50 ug/g.........Normal 50-120 ug/g...............Borderline elevated, test should be re-evaluated in 4-6 weeks. 121 ug/g or greater.......Elevated Performed By: [facility] [address] [place] [address] [employer] Supervisor: Louie Kidd MD, PhD Performed By: #### A CALPF #### [facility] [address] [place] [address] Women'S Soccer Coach: Jesu Farley MD Celiac Disease Panelon 10-24 Gliadin Deam Pep IgA 0.5 U/mL Normal <7.0 [facility] Comment on above: Result Comment: CELIAC INTERPRETATION <7.0 Negative 7.0-10.0 Equivocal >10.0 Positive units: U/mL Performed By: #### C ELP #### [address] [address] Women'S Soccer Coach: Alex Deleon MD Gliadin Deam Pep IgG <0.4 Normal <7.0 [facility] Comment on above: Result Comment: CELIAC INTERPRETATION <7.0 Negative 7.0-10.0 Equivocal >10.0 Positive units: U/mL Performed By: #### C ELP #### [facility] [address] [place] [address] Women'S Soccer Coach: Alex Deleon MD Tiss Transglutam IgA <0.1 Normal <7.0 [facility] Comment on above: Result Comment: CELIAC INTERPRETATION <7.0 Negative 7.0-10.0 Equivocal >10.0 Positive units: U/mL Performed By: #### C ELP #### [address] [address] Women'S Soccer Coach: Alex Deleon MD IgA [Mass/Vol] 132 mg/dL Normal 70-400 [facility] Comment on above: Performed By: #### C ELP #### [address] [address] Women'S Soccer Coach: Alex Deleon MD AEROBIC CULTURE AND SENSITIV ITYon 10-07-2022 AMPICILLIN N/A Normal () [facility] Comment on above: Order Comment: FACIL ITY: [facility] [id number] Performed By: #### C -M75 #### [facility] [address] [facility], [address] CEFOXITIN SCREEN Negative Normal () [facility] Comment on above: Order Comment: FACIL ITY: [facility] [id number] Performed By: #### C -M75 #### [facility] [address] [facility], [address] CIPROFLOXACIN S Normal () [facility] Comment on above: Order Comment: FACIL ITY: [facility] [id number] Performed By: #### C -M75 #### [facility] [address] [facility], [address] CLINDAMYCIN S Normal () [facility] Comment on above: Order Comment: FACIL ITY: [facility] [id number] Performed By: #### C -M75 #### [facility] [address] [place], [address] CULTURE, AEROBIC SENS Normal (SEE - REPOR) [place] [facility] Comment on above: Order Comment: FACIL ITY: [facility] [id number] Performed By: #### C -M75 #### [facility] [address] [place], [address] DAPTOMYCIN S Normal () [facility] Comment on above: Order Comment: FACIL ITY: [facility] [id number] Performed By: #### C -M75 #### [facility] [address] [place], [address] DOXYCYCLINE I Normal () [place] [facility] Comment on above: Order Comment: FACIL ITY: [facility] [id number] Performed By: #### C -M75 #### [facility] [address] [place], [address] ERYTHROMYCIN R High () [facility] Comment on above: Order Comment: FACIL ITY: [facility] [id number] Performed By: #### C -M75 #### [facility] [address] [place], [address] GENTAMICIN S Normal () [facility] Comment on above: Order Comment: FACIL ITY: [facility] [id number] Performed By: #### C -M75 #### [facility] [address] [place], [address] GENTAMICIN HIGH LEVEL N/A Normal () [facility] Comment on above: Order Comment: FACIL ITY: [facility] [id number] Performed By: #### C -M75 #### [facility] [address] [place], [address] INDUCIBLE CLINDAMYCIN RESISTANCE Negative Normal () [facility] Comment on above: Order Comment: FACIL ITY: [facility] [id number] Performed By: #### C -M75 #### [facility] [address] [place], [address] LEVOFLOXACIN S Normal () [facility] Comment on above: Order Comment: FACIL ITY: [facility] [id number] Performed By: #### C -M75 #### [facility] [address] [place], [address] LINEZOLID S Normal () [facility] Comment on above: Order Comment: FACIL ITY: [facility] [id number] Performed By: #### C -M75 #### [facility] [address] [place], [address] MOXIFLOXACIN S Normal () [facility] Comment on above: Order Comment: FACIL ITY: [facility] [id number] Performed By: #### C -M75 #### [facility] [address] [place], [address] NITROFURANTOIN S Normal () [facility] Comment on above: Order Comment: FACIL ITY: [facility] [id number] Performed By: #### C -M75 #### [facility] [address] [place], [address] OXACILLIN S Normal () [facility] Comment on above: Order Comment: FACIL ITY: [facility] [id number] Performed By: #### C -M75 #### [facility] [address] [place], [address] REPORT STATUS FINAL Normal () [facility] Comment on above: Order Comment: FACIL ITY: [facility] [id number] Result Comment: SOUR CE: NO SOURCE INDICATED GROWTH: FEW ISOLATE: STAPHYLOCOCCUS EPIDERMIDIS SENSITIVITY INTERPRETATION S = SUSCEPTIBLE R = RESISTANT I = INTERMEDIATE N/A = NOT APPLICABLE Performed By: #### C -M75 #### [facility] [address] [facility], [address] RIFAMPICIN S Normal () [facility] Comment on above: Order Comment: FACIL ITY: [facility] [id number] Performed By: #### C -M75 #### [facility] [address] [facility], [address] STREPTOMYCIN HIGH LEVEL N/A Normal () [facility] Comment on above: Order Comment: FACIL ITY: [facility] [id number] Performed By: #### C -M75 #### [facility] [address] [facility], [address] TETRACYCLINE R High () [facility] Comment on above: Order Comment: FACIL ITY: [facility] [id number] Performed By: #### C -M75 #### [facility] [address] [facility], [address] TIGECYCLINE S Normal () [facility] Comment on above: Order Comment: FACIL ITY: [facility] [id number] Performed By: #### C -M75 #### [facility] [address] [facility], [address] TRIMETH/SULFA S Normal () [facility] Comment on above: Order Comment: FACIL ITY: [facility] [id number] Performed By: #### C -M75 #### [facility] [address] [facility], [address] VANCOMYCIN S Normal () [facility] Comment on above: Order Comment: FACIL ITY: [facility] [id number] Performed By: #### C -M75 #### [facility] [address] [facility], [address] BNPon 08-07-2022 Natriuretic peptide B (Bld) [Mass/Vol] 23.0 pg/mL Normal <=450.0 [facility] Comment on above: Performed By: #### H STROPN, BNP, BMP #### [facility] [address] [place] [address] Dr. Anette Siddiqui CBC AUTO DIFFon 08-07-2022 BASO # 0.0 103/ul Normal 0.0-0.1 [facility] Comment on above: Performed By: #### C BC #### [facility] [address] [place] [address] Dr. Anette Siddiqui Basophils/100 WBC (Bld) 0.4 % Normal 0.2-2.0 [facility] Comment on above: Performed By: #### C BC #### [facility] [address] [place] [address] Dr. Anette Siddiqui EO # 0.1 103/ul Normal 0.0-0.7 [facility] Comment on above: Performed By: #### C BC #### [facility] [address] [place] [address] Dr. Anette Siddiqui Eosinophils/100 WBC (Bld) 1.0 % Normal 0.9-7.0 [facility] Comment on above: Performed By: #### C BC #### [facility] [address] [place] [address] Dr. Anette Siddiqui Erythrocyte distribution width (RBC) [Ratio] 13.3 % Normal 11.0-15.0 [facility] Comment on above: Performed By: #### C BC #### [facility] [address] [place] [address] Dr. Anette Siddiqui Hematocrit (Bld) [Volume fraction] 42.2 % Normal 36.0-48.0 [facility] Comment on above: Performed By: #### C BC #### [facility] [address] [place] [address] Dr. Anette Siddiqui Hemoglobin (Bld) [Mass/Vol] 14.2 g/dL Normal 12.0-16.0 [facility] Comment on above: Performed By: #### C BC #### [facility] [address] [place] [address] Dr. Anette Siddiqui IG # 0.02 10e3/ul Normal 0.00-0.03 [facility] Comment on above: Performed By: #### C BC #### [facility] [address] [place] [address] Dr. Anette Siddiqui IG % 0.3 % Normal 0.0-0.5 [facility] Comment on above: Performed By: #### C BC #### [facility] [address] [place] [address] Dr. Anette Siddiqui LYMPH # 1.9 103/ul Normal 1.2-3.8 [facility] Comment on above: Performed By: #### C BC #### [facility] [address] [place] [address] Dr. Anette Siddiqui Lymphocytes/100 WBC (Bld) 24.8 % Normal 20.5-60.0 [facility] Comment on above: Performed By: #### C BC #### [facility] [address] [place] [address] Dr. Anette Siddiqui MANUAL DIFF REQ NO Normal [facility] Comment on above: Performed By: #### C BC #### [facility] [address] [place] [address] Dr. Anette Siddiqui MCH (RBC) [Entitic mass] 30.5 pg Normal 26.7-34.0 [facility] Comment on above: Performed By: #### C BC #### [facility] [address] [place] [address] Dr. Anette Siddiqui MCHC (RBC) [Mass/Vol] 33.6 g/dL Normal 29.9-35.2 [facility] Comment on above: Performed By: #### C BC #### [facility] [address] [place] [address] Dr. Anette Siddiqui MCV (RBC) [Entitic vol] 90.8 fL Normal 81.0-99.0 [facility] Comment on above: Performed By: #### C BC #### [facility] [address] [place] [address] Dr. Anette Siddiqui MONO # 0.6 103/ul Normal 0.3-0.8 [facility] Comment on above: Performed By: #### C BC #### [facility] [address] [place] [address] Dr. Anette Siddiqui Monocytes/100 WBC (Bld) 7.7 % Normal 1.7-12.0 [facility] Comment on above: Performed By: #### C BC #### [facility] [address] [place] [address] Dr. Anette Siddiqui NEUT # 5.0 103/ul Normal 1.4-6.5 [facility] Comment on above: Performed By: #### C BC #### [facility] [address] [place] [address] Dr. Anette Siddiqui Neutrophils/100 WBC (Bld) 65.8 % Normal 43.0-75.0 [facility] Comment on above: Performed By: #### C BC #### [facility] [address] [place] [address] Dr. Anette Siddiqui Platelet mean volume (Bld) [Entitic vol] 10.3 fL Normal 9.5-13.5 [facility] Comment on above: Performed By: #### C BC #### [facility] [address] [place] [address] Dr. Anette Siddiqui PLT 186 103/ul Normal 150-450 [facility] Comment on above: Performed By: #### C BC #### [facility] [address] [place] [address] Dr. Anette Siddiqui RBC 4.65 106/ul Normal 4.20-5.40 [facility] Comment on above: Performed By: #### C BC #### [facility] [address] [place] [address] Dr. Anette Siddiqui WBC 7.6 103/ul Normal 4.0-11.0 [facility] Comment on above: Performed By: #### C BC #### [facility] [address] [address] [address] Anette Siddiqui PREG HCG QUALon 08-07-2022 , QUAL Negative Normal NEGATIVE [facility] Comment on above: Performed By: #### P TT, PT #### [facility] [address] [address] [address] Anette Siddiqui PROF CHEM 8 (BAS METB)on Anion gap [Moles/Vol] 14.8 mmol/L Normal [facility] Comment on above: Performed By: #### H STROPN, BNP, BMP #### [facility] [address] [address] [address] Anette Siddiqui Calcium [Mass/Vol] 8.8 mg/dL Normal 8.5-10.1 [facility] Comment on above: Performed By: #### H STROPN, BNP, BMP #### [facility] [address] [address] [address] Anette Siddiqui Chloride [Moles/Vol] 105 mmol/L Normal 98-107 [facility] Comment on above: Performed By: #### H STROPN, BNP, BMP #### [facility] [address] [place] [address] Dr. Anette Siddiqui CO2 [Moles/Vol] 24.0 mmol/L Normal 21.0-32.0 [facility] Comment on above: Performed By: #### H STROPN, BNP, BMP #### [facility] [address] [address] [address] Anette Siddiqui Creatinine [Mass/Vol] 0.71 mg/dL Normal 0.55-1.02 [facility] Comment on above: Performed By: #### H STROPN, BNP, BMP #### [facility] [address] [place] [address] Dr. Anette Siddiqui EGFR-AF UGANDAN >60 Normal >=60 [facility] Comment on above: Performed By: #### H STROPN, BNP, BMP #### [facility] [address] [place] [address] Dr. Anette Siddiqui EGFR-NON AF UGANDAN >60 Normal >=60 [facility] Comment on above: Performed By: #### H STROPN, BNP, BMP #### [facility] [address] [address] [address] Anette Siddiqui Glucose [Mass/Vol] 99 mg/dL Normal 74-106 [facility] Comment on above: Performed By: #### H STROPN, BNP, BMP #### [facility] [address] [address] [address] Anette Siddiqui Potassium [Moles/Vol] 3.8 mmol/L Normal 3.5-5.1 [facility] Comment on above: Performed By: #### H STROPN, BNP, BMP #### [facility] [address] [place] [address] Dr. Anette Siddiqui Sodium [Moles/Vol] 140 mmol/L Normal 136-145 [facility] Comment on above: Performed By: #### H STROPN, BNP, BMP #### [facility] [address] [place] [address] Dr. Anette Siddiqui Urea nitrogen [Mass/Vol] 15.0 mg/dL Normal 7.0-18.0 [facility] Comment on above: Performed By: #### H STROPN, BNP, BMP #### [facility] [address] [place] [address] Dr. Anette Siddiqui Urea nitrogen/Creatinine [Mass ratio] 21.1 mg/mg Normal [facility] Comment on above: Performed By: #### H STROPN, BNP, BMP #### [facility] [address] [place] [address] Dr. Anette Siddiqui TROPONIN, HIGH SENSITIVITYon 08-07-2022 HSTROP <4.0 Normal 4.0-51.3 [facility] Comment on above: Result Comment: CUT- OFF POINTS HAVE BEEN ESTABLISHED BASED ON THE FOURTH UNIVERSAL DEFINITIONS OF MYOCARDIAL INFARCTION. THE UPPER REFERENCE LIMIT (URL) OF TROPONIN, DEFINED THE 99TH PERCENTILE OF cTnI DISTRIBUTION IN A REFERENCE POPULATION, HAS BEEN CONFIRMED THE DECISION THRESHOLD FOR MO DIAGNOSIS. Performed By: #### H STROPN, BNP, BMP #### [facility] [address] [place] [address] Dr. Anette Siddiqui XR CHEST 1 Von [...] HUGO OWENS Date: 2022-08-07 15:54 Normal The [facility] CBC AUTO DIFFon 02-14-2022 BASO # 0.0 103/ul Normal 0.0-0.1 [facility] Comment on above: Performed By: #### C BC #### [facility] [address] [place] [address] Dr. Anette Siddiqui Basophils/100 WBC (Bld) 0.5 % Normal 0.2-2.0 [facility] Comment on above: Performed By: #### C BC #### [facility] [address] [place] [address] Dr. Anette Siddiqui EO # 0.1 103/ul Normal 0.0-0.7 [facility] Comment on above: Performed By: #### C BC #### [facility] [address] [place] [address] Dr. Anette Siddiqui Eosinophils/100 WBC (Bld) 1.0 % Normal 0.9-7.0 [facility] Comment on above: Performed By: #### C BC #### [facility] [address] [place] [address] Dr. Anette Siddiqui Erythrocyte distribution width (RBC) [Ratio] 12.9 % Normal 11.0-15.0 [facility] Comment on above: Performed By: #### C BC #### [facility] [address] [place] [address] Dr. Anette Siddiqui Hematocrit (Bld) [Volume fraction] 43.2 % Normal 36.0-48.0 [facility] Comment on above: Performed By: #### C BC #### [facility] [address] [place] [address] Dr. Anette Siddiqui Hemoglobin (Bld) [Mass/Vol] 14.4 g/dL Normal 12.0-16.0 [facility] Comment on above: Performed By: #### C BC #### [facility] [address] [place] [address] Dr. Anette Siddiqui IG # 0.01 10e3/ul Normal 0.00-0.03 [facility] Comment on above: Performed By: #### C BC #### [facility] [address] [place] [address] Dr. Anette Siddiqui IG % 0.2 % Normal 0.0-0.5 [facility] Comment on above: Performed By: #### C BC #### [facility] [address] [place] [address] Dr. Anette Siddiqui LYMPH # 1.7 103/ul Normal 1.2-3.8 [facility] Comment on above: Performed By: #### C BC #### [facility] [address] [place] [address] Dr. Anette Siddiqui Lymphocytes/100 WBC (Bld) 29.8 % Normal 20.5-60.0 [facility] Comment on above: Performed By: #### C BC #### [facility] [address] [place] [address] Dr. Anette Siddiqui MANUAL DIFF REQ NO Normal [facility] Comment on above: Performed By: #### C BC #### [facility] [address] [place] [address] Dr. Anette Siddiqui MCH (RBC) [Entitic mass] 30.4 pg Normal 26.7-34.0 [facility] Comment on above: Performed By: #### C BC #### [facility] [address] [place] [address] Dr. Anette Siddiqui MCHC (RBC) [Mass/Vol] 33.3 g/dL Normal 29.9-35.2 [facility] Comment on above: Performed By: #### C BC #### [facility] [address] [place] [address] Dr. Anette Siddiqui MCV (RBC) [Entitic vol] 91.1 fL Normal 81.0-99.0 [facility] Comment on above: Performed By: #### C BC #### [facility] [address] [place] [address] Dr. Anette Siddiqui MONO # 0.5 103/ul Normal 0.3-0.8 [facility] Comment on above: Performed By: #### C BC #### [facility] [address] [place] [address] Dr. Anette Siddiqui Monocytes/100 WBC (Bld) 9.1 % Normal 1.7-12.0 [facility] Comment on above: Performed By: #### C BC #### [facility] [address] [place] [address] Dr. Anette Siddiqui NEUT # 3.5 103/ul Normal 1.4-6.5 [facility] Comment on above: Performed By: #### C BC #### [facility] [address] [place] [address] Dr. Anette Siddiqui Neutrophils/100 WBC (Bld) 59.4 % Normal 43.0-75.0 [facility] Comment on above: Performed By: #### C BC #### [facility] [address] [place] [address] Dr. Anette Siddiqui Platelet mean volume (Bld) [Entitic vol] 10.1 fL Normal 9.5-13.5 [facility] Comment on above: Performed By: #### C BC #### [facility] [address] [place] [address] Dr. Anette Siddiqui PLT 198 103/ul Normal 150-450 [facility] Comment on above: Performed By: #### C BC #### [facility] [address] [place] [address] Dr. Anette Siddiqui RBC 4.74 106/ul Normal 4.20-5.40 [facility] Comment on above: Performed By: #### C BC #### [facility] [address] [place] [address] Dr. Anette Siddiqui WBC 5.8 103/ul Normal 4.0-11.0 [facility] Comment on above: Performed By: #### C BC #### [facility] [address] [address] [address] ABD/PELVIS WO CONon [...] Date: 2022-02-14 13:11 Normal [facility] ER URINE PROFILEon 2 Bilirubin Ql (U) Negative Normal NEGATIVE The [facility] Comment on above: Performed By: #### P TT, PT #### [facility] [address], [place] [address] Dr. Anette Siddiqui Clarity (U) CLEAR Normal CLEAR [facility] Comment on above: Performed By: #### P TT, PT #### [facility] [address], [place] [address] Dr. Anette Siddiqui Color (U) LT. YELLOW Normal YELLOW [facility] Comment on above: Performed By: #### P TT, PT #### [facility] [address] [address] [address] Anette BOWMAN A micrscopic examination will be performed if indicated. Normal [facility] Comment on above: Performed By: #### P TT, PT #### [facility] [address] [address] [address] Anette Siddiqui Glucose Ql (U) Negative Normal NEGATIVE The [facility] Comment on above: Performed By: #### P TT, PT #### [facility] [address] [address] [address] Anette Siddiqui Hemoglobin Ql (U) Negative Normal NEGATIVE [facility] Comment on above: Performed By: #### P TT, PT #### [facility] [address] [address] [address] Anette Siddiqui Ketones Ql (U) Negative Normal NEGATIVE [facility] Comment on above: Performed By: #### P TT, PT #### [facility] [address] [place] [address] Dr. Anette Siddiqui LEUKOCYTES Negative Normal NEGATIVE [facility] Comment on above: Performed By: #### P TT, PT #### [facility] [address] [address] [address] Anette Siddiqui Nitrite Ql (U) Negative Normal NEGATIVE [facility] Comment on above: Performed By: #### P TT, PT #### [facility] [address] [place] [address] Dr. Anette Siddiqui pH (U) 6.0 [pH] Normal 5-9 [facility] Comment on above: Performed By: #### P TT, PT #### [facility] [address] [address] [address] Anette Siddiqui SPEC GRAVITY 1.015 Normal 1.005-<=1.02 5 [facility] Comment on above: Performed By: #### P TT, PT #### [facility] [address] [address] [address] Anette Siddiqui UA PROTEIN Negative Normal NEGATIVE/ TRACE [facility] Comment on above: Performed By: #### P TT, PT #### [facility] [address] [place] [address] Dr. Anette Siddiqui UR MICRO IND NOT INDICATED Normal [facility] Comment on above: Performed By: #### P TT, PT #### [facility] [address] [address] [address] Anette Siddiqui Urobilinogen Qn (U) 0.2 {Shaniqua'U}/dL Normal 0.2 - 1. 0 [facility] Comment on above: Performed By: #### P TT, PT #### [facility] [address] [place] [address] Dr. Anette Siddiqui URon 02-14-2022 , QUAL Negative Normal NEGATIVE [facility] Comment on above: Performed By: #### P TT, PT #### [facility] [address] [place] [address] Dr. Anette Siddiqui PROF 14(COMP METB)on 022 Albumin [Mass/Vol] 4.2 g/dL Normal 3.4-5.0 [facility] Comment on above: Performed By: #### C MP #### [facility] [address] [place] [address] Dr. Anette Siddiqui Albumin/Globulin [Mass ratio] 1.4 {ratio} Normal [facility] Comment on above: Performed By: #### C MP #### [facility] [address] [place] [address] Dr. Anette Siddiqui ALP [Catalytic activity/Vol] 105 U/L Normal 46-116 [facility] Comment on above: Performed By: #### C MP #### [facility] [address] [place] [address] Dr. Anette Siddiqui ALT [Catalytic activity/Vol] 31 U/L Normal 14-59 [facility] Comment on above: Performed By: #### C MP #### [facility] [address] [place] [address] Dr. Anette Siddiqui Anion gap [Moles/Vol] 11.9 mmol/L Normal [facility] Comment on above: Performed By: #### C MP #### [facility] [address] [address] [address] Anette Siddiqui AST [Catalytic activity/Vol] 17 U/L Normal 15-37 [facility] Comment on above: Performed By: #### C MP #### [facility] [address] [address] [address] Anette Siddiqui Bilirubin [Mass/Vol] 0.6 mg/dL Normal 0.2-1.0 [facility] Comment on above: Performed By: #### C MP #### [facility] [address] [address] [address] Anette Siddiqui Calcium [Mass/Vol] 9.2 mg/dL Normal 8.5-10.1 [facility] Comment on above: Performed By: #### C MP #### [facility] [address] [place] [address] Dr. Anette Siddiqui Chloride [Moles/Vol] 105 mmol/L Normal 98-107 [facility] Comment on above: Performed By: #### C MP #### [facility] [address] [place] [address] Dr. Anette Siddiqui CO2 [Moles/Vol] 27.8 mmol/L Normal 21.0-32.0 [facility] Comment on above: Performed By: #### C MP #### [facility] [address] [place] [address] Dr. Anette Siddiqui Creatinine [Mass/Vol] 0.74 mg/dL Normal 0.55-1.02 [facility] Comment on above: Performed By: #### C MP #### [facility] [address] [place] [address] Dr. Anette Siddiqui EGFR-AF UGANDAN >60 Normal >=60 [facility] Comment on above: Performed By: #### C MP #### [facility] [address] [place] [address] Dr. Anette Siddiqui EGFR-NON AF UGANDAN >60 Normal >=60 [facility] Comment on above: Performed By: #### C MP #### [facility] [address] [place] [address] Dr. Anette Siddiqui Globulin (S) [Mass/Vol] 3.0 g/dL Normal [facility] Comment on above: Performed By: #### C MP #### [facility] [address] [address] [address] Anette Siddiqui Glucose [Mass/Vol] 79 mg/dL Normal 74-106 [facility] Comment on above: Performed By: #### C MP #### [facility] [address] [address] [address] Anette Siddiqui Potassium [Moles/Vol] 3.7 mmol/L Normal 3.5-5.1 [facility] Comment on above: Performed By: #### C MP #### [facility] [address] [address] [address] Anette Siddiqui Protein [Mass/Vol] 7.2 g/dL Normal 6.4-8.2 [facility] Comment on above: Performed By: #### C MP #### [facility] [address] [address] [address] Anette Siddiqui Sodium [Moles/Vol] 141 mmol/L Normal 136-145 [facility] Comment on above: Performed By: #### C MP #### [facility] [address] [address] [address] Anette Siddiqui Urea nitrogen [Mass/Vol] 13.0 mg/dL Normal 7.0-18.0 [facility] Comment on above: Performed By: #### C MP #### [facility] [address] [address] [address] Anette Siddiqui Urea nitrogen/Creatinine [Mass ratio] 17.6 mg/mg Normal [facility] Comment on above: Performed By: #### C MP #### [facility] [address] [address] [address] Anette Siddiqui PROTIMEon 02-14-2022 INR Coag (PPP) [Relative time] 1.01 {INR} Normal [facility] Comment on above: Performed By: #### P TT, PT #### [facility] [address] [place] [address] Dr. Anette Siddiqui INR GUIDELINES SEE BELOW Normal [facility] Comment on above: Result Comment: HERB RED INR: 2.0 - 3.0 CONDITIONS NOT LISTED BELOW 2.5 - 3.5 FOR PROSTHETIC HEART VALVE REPLACEMENT 2.5 - 3.5 RECURRENT THROMBOSIS Performed By: #### P TT, PT #### [facility] [address], [place] [address] Dr. Anette Siddiqui PT Coag (PPP) [Time] 10.9 s Normal 9.0-11.6 [facility] Comment on above: Performed By: #### P TT, PT #### [facility] [address], [place] [address] Dr. Anette Siddiqui PTTon 02-14-2022 aPTT Coag (Bld) [Time] 26.9 s Normal 22.3-36.2 [facility] Comment on above: Performed By: #### P TT, PT #### [facility] [address], [place] [address] Dr. Anette Siddiqui Vital Signs Date Time Vital Sign Value Performing Clinician Facility 08-16-2024 09:06-0400 Body mass index (BMI) [Ratio] 28.16 kg/m2 Manomasa Work Phone: [facility] 08-16-2024 09:06-0400 Body weight 79.74 kg Pradip Lionel DO Work Phone: [facility] 08-16-2024 09:06-0400 Diastolic blood pressure 70 mm[Hg] Pradip Lionel [employer] Work Phone: [facility] 08-16-2024 09:06-0400 Systolic blood pressure 110 mm[Hg] Pradip Lionel DO Work Phone: [facility] 07-26-2024 15:32-0400 Body mass index (BMI) [Ratio] 26.59 kg/m2 Dasha WAGNER Work Phone: [facility] 07-26-2024 15:32-0400 Body weight 75.3 kg Dasha WAGNER Work Phone: [facility] 07-26-2024 15:32-0400 Diastolic blood pressure 70 mm[Hg] Dasha WAGNER Work Phone: [facility] 07-26-2024 15:32-0400 Systolic blood pressure 112 mm[Hg] Dasha Veronica PA Work Phone: [facility] 07-07-2024 10:21-0500 Body mass index (BMI) [Ratio] 26.4 kg/m2 Dasha Veronica PA Work Phone: [facility] 07-07-2024 10:21-0500 Body weight 74.75 kg Dasha Veronica PA Work Phone: [facility] 07-07-2024 10:21-0500 Diastolic blood pressure 70 mm[Hg] Dasha Angwin PA Work Phone: [facility] 07-07-2024 10:21-0500 Systolic blood pressure 116 mm[Hg] Dasha Angwin PA Work Phone: [facility] 06-22-2024 10:10-0500 Body mass index (BMI) [Ratio] 25.65 kg/m2 Pradip Lionel DO Work Phone: [facility] 06-22-2024 10:10-0500 Body weight 72.63 kg Pradip Lionel DO Work Phone: [facility] 06-22-2024 10:10-0500 Diastolic blood pressure 68 mm[Hg] Pradip Lionel DO Work Phone: [facility] 06-22-2024 10:10-0500 Systolic blood pressure 104 mm[Hg] Pradip Lionel DO Work Phone: [facility] 05-26-2024 14:47-0500 Body mass index (BMI) [Ratio] 24.19 kg/m2 Dasha Veronica PA Work Phone: [facility] 05-26-2024 14:47-0500 Body weight 68.49 kg Dasha Angwin PA Work Phone: [facility] 05-26-2024 14:47-0500 Diastolic blood pressure 66 mm[Hg] Dasha Angwin PA Work Phone: [facility] 05-26-2024 14:47-0500 Systolic blood pressure 102 mm[Hg] Dasha WAGNER Work Phone: [facility] 05-06-2024 11:27-0500 Body mass index (BMI) [Ratio] 22.75 kg/m2 Pradip Lionel DO Work Phone: [facility] 05-06-2024 11:27-0500 Body weight 64.41 kg Pradip Lionel DO Work Phone: [facility] 05-06-2024 11:27-0500 Diastolic blood pressure 64 mm[Hg] Pradip Lionel DO Work Phone: [facility] 05-06-2024 11:27-0500 Systolic blood pressure 106 mm[Hg] Pradip Lionel DO Work Phone: [facility] 04-06-2024 14:14-0500 Body mass index (BMI) [Ratio] 21.95 kg/m2 Dasha WAGNER Work Phone: [facility] 04-06-2024 14:14-0500 Body weight 62.14 kg Dasha WAGNER Work Phone: [facility] 04-06-2024 14:14-0500 Diastolic blood pressure 62 mm[Hg] Dasha WAGNER Work Phone: [facility] 04-06-2024 14:14-0500 Systolic blood pressure 102 mm[Hg] Dasha WAGNER Work Phone: [facility] 03-09-2024 13:40-0400 Body mass index (BMI) [Ratio] 21.21 kg/m2 Pradip Lionel DO Work Phone: [facility] 03-09-2024 13:40-0400 Body weight 60.06 kg Pradip Lionel DO Work Phone: [facility] 03-09-2024 13:40-0400 Diastolic blood pressure 60 mm[Hg] Pradip Lionel DO Work Phone: [facility] 03-09-2024 13:40-0400 Systolic blood pressure 106 mm[Hg] Pradip Lionel DO Work Phone: [facility] 02-19-2024 14:28-0400 Body mass index (BMI) [Ratio] 21.21 kg/m2 [facility] Nurse [facility] 02-19-2024 14:28-0400 Body weight 60.06 kg [facility] Nurse [facility] 02-05-2024 10:44-0400 Body height 165.1 cm Harris Torres MD Work Phone: [facility] 02-05-2024 10:44-0400 Body mass index (BMI) [Ratio] 22.53 kg/m2 Harris Torres MD Work Phone: [facility] 02-05-2024 10:44-0400 Body temperature 97.81 [degF] Harris Torres MD Work Phone: [facility] 02-05-2024 10:44-0400 Body weight 61.42 kg Harris Torres MD Work Phone: [facility] 02-05-2024 10:44-0400 Diastolic blood pressure 62 mm[Hg] Harris Torres MD Work Phone: [facility] 02-05-2024 10:44-0400 Heart rate 104 /min Harris Torres MD Work Phone: [facility] 02-05-2024 10:44-0400 SaO2% (BldA) [Mass fraction] 94 % Harris Torres MD Work Phone: [facility] 02-05-2024 10:44-0400 Systolic blood pressure 118 mm[Hg] Harris Torres MD Work Phone: [facility] 11-25-2023 11:50-0400 Body temperature 98.5 [degF] MD Brian Elizabeth Work Phone: [facility] 11-25-2023 11:50-0400 Diastolic blood pressure 77 mm[Hg] MD Brian Elizabeth Work Phone: [facility] 11-25-2023 11:50-0400 Heart rate 104 /min MD Brian Elizabeth Work Phone: [facility] 11-25-2023 11:50-0400 SaO2% (BldA) [Mass fraction] 97 % MD Brian Elizabeth Work Phone: [facility] 11-25-2023 11:50-0400 Systolic blood pressure 108 mm[Hg] MD Brian Elizabeth Work Phone: [facility] 11-24-2023 20:13-0400 Respiratory rate 18 /min MD Brian Elizabeth Work Phone: [facility] 11-24-2023 14:55-0400 Body height 167.64 cm MD Brian Elizabeth Work Phone: [facility] 11-24-2023 09:00-0400 Body weight 60.32 kg MD Brian Elizabeth Work Phone: [facility] 07-23-2023 09:12-0500 Body height 167.6 cm Harris Torres MD Work Phone: [facility] 07-23-2023 09:12-0500 Body mass index (BMI) [Ratio] 23.25 kg/m2 Harris Torres MD Work Phone: [facility] [employer] [facility] 07-23-2023 09:12-0500 Body temperature 98.49 [degF] [facility] 07-23-2023 09:12-0500 Body weight 65.32 kg Harris Torres MD Work Phone: [facility] [employer] 07-23-2023 09:12-0500 Diastolic blood pressure 74 mm[Hg] Harris Torres MD Work Phone: [facility] [employer] [facility] 07-23-2023 09:12-0500 Heart rate 56 /min Harris Torres MD Work Phone: [facility] 07-23-2023 09:12-0500 SaO2% (BldA) [Mass fraction] 97 % Harris Torres MD Work Phone: [facility] 07-23-2023 09:12-0500 Systolic blood pressure 124 mm[Hg] Harris Torres MD Work Phone: [facility] Encounters Encounter Date Encounter Type Care Provider Facility Start: 08-16-2024 End: 08-16-2024 Office outpatient visit 15 minutes Pradip Lionel DO Work Phone: [facility] Comment on above: 34 weeks gestation o f ; Third trimester Start: 08-16-2024 End: 08-16-2024 ambulatory PRADIP FLOWERS Not Available Start: 07-26-2024 End: 07-26-2024 ambulatory DASHA MARTIN Not Available Start: 07-26-2024 End: 07-26-2024 Office outpatient visit 15 minutes Dasha WAGNER Work Phone: [facility] Comment on above: Third trimester preg bev; 31 weeks gestation of ; size inconsistent with dates Start: 07-26-2024 End: 07-26-2024 Bamboo flowsheet Dasha WAGNER Work Phone: [facility] Start: 07-26-2024 End: 07-26-2024 Bamboo flowsheet Dasha WAGNER Work Phone: [facility] Start: 07-07-2024 End: 07-07-2024 Bamboo flowsheet Dasha WAGNER Work Phone: [facility] Start: 07-07-2024 End: 07-07-2024 Bamboo flowsheet Dasha WAGNER Work Phone: [facility] Start: 07-07-2024 End: 07-07-2024 Office outpatient visit 15 minutes Dasha WAGNER Work Phone: [facility] Comment on above: 28 weeks gestation o f ; Third trimester Start: 07-07-2024 End: 07-07-2024 ambulatory DASHA MARTIN Not Available Start: 06-22-2024 End: 06-22-2024 Bamboo flowsheet Pradip Lionel DO Work Phone: [facility] Start: 06-22-2024 End: 06-22-2024 Bamboo flowsheet Pradip Lionel DO Work Phone: [facility] Start: 06-22-2024 End: 06-22-2024 ambulatory PRADIP LIONEL Not Available Start: 06-22-2024 End: 06-22-2024 Office outpatient visit 15 minutes Pradip Lionel DO Work Phone: [facility] Comment on above: Second trimester pre gnancy; 26 weeks gestation of Start: 05-29-2024 End: 05-29-2024 Clinisync Result Encounter [...] screening Start: 05-26-2024 End: 05-26-2024 ambulatory DASHA MARTIN Not Available Start: 05-26-2024 End: 05-26-2024 Bamboo flowsheet Dasha Martin PA Work Phone: [facility] Start: 05-26-2024 End: 05-26-2024 Bamboo flowsheet Dasha Martin PA Work Phone: [facility] Start: 05-07-2024 End: 05-12-2024 Clinisync Result Encounter Pradip Lionel DO Work Phone: [facility] Unsolicited Start: 05-07-2024 End: 05-12-2024 Clinisync Result Encounter Pradip Lionel DO Work Phone: [facility] Unsolicited Start: 05-06-2024 End: 05-06-2024 Bamboo flowsheet Pradip Lionel DO Work Phone: [facility] Start: 05-06-2024 End: 05-06-2024 Bamboo flowsheet Pradip Lionel DO Work Phone: [facility] Start: 05-06-2024 End: 05-06-2024 Office outpatient visit 15 minutes Pradip Lionel DO Work Phone: [facility] Comment on above: Second trimester pre gnancy; 19 weeks gestation of Start: 05-06-2024 End: 05-06-2024 ambulatory PRADIP LIONEL Not Available Start: 04-06-2024 End: 04-06-2024 Bamboo flowsheet Dasha WAGNER Work Phone: [facility] Start: 04-06-2024 End: 04-19-2024 Bamboo flowsheet Dasha WAGNER Work Phone: [facility] Start: 04-06-2024 End: 04-19-2024 Clinisync Result Encounter Dasha WAGNER Work Phone: [facility] External Department Unsolicited Start: 04-06-2024 End: 04-06-2024 Patient encounter procedure Dasha WAGNER Work Phone: [facility] Start: 04-06-2024 End: 04-06-2024 Periodic preventive med est patient 18-39 yrs Dasha WAGNER Work Phone: [facility] Comment on above: Well woman exam with routine gynecological exam; Exposure to STD; Encounter for anatomic survey; Second trimester ; 15 weeks gestation of ; Need for maternal serum alpha-protein (MSAFP) screening; Screening, , for anatomic survey Start: 04-06-2024 End: 04-06-2024 ambulatory DASHA MARTIN Not Available Start: 03-09-2024 End: 03-09-2024 Bamboo flowsheet Pradip Lionel DO Work Phone: [facility] Start: 03-09-2024 End: 03-09-2024 Bamboo flowsheet Pradip Lionel DO Work Phone: [facility] Start: 03-09-2024 End: 03-09-2024 Office outpatient visit 15 minutes Pradip Lionel DO Work Phone: [facility] Comment on above: 11 weeks gestation o f ; First trimester Start: 03-09-2024 End: 03-09-2024 ambulatory PRADIP LIONEL Not Available Start: 03-01-2024 End: 03-01-2024 Emergency department patient visit JOSELINRI Karley [facility] Start: 02-19-2024 End: 02-19-2024 ambulatory PRADIP R [facility] Start: 02-19-2024 End: 02-19-2024 Office outpatient visit 5 minutes [facility] Lionel Nurse [facility] Start: 02-19-2024 End: 02-19-2024 ambulatory PRADIP LIONEL Not Available Start: 02-05-2024 End: 02-05-2024 ambulatory [facility] Start: 02-05-2024 End: 02-05-2024 Office outpatient visit 15 minutes Harris Torres MD Work Phone: [facility] Comment on above: Dysuria (Primary Dx) Start: 02-05-2024 End: 02-05-2024 ambulatory [facility] Start: 02-03-2024 ambulatory Krzysztof Finney acility:[facility] Start: 11-23-2023 Non-patient / Non-visit MD Treasure Elizabeth Work Phone: [facility] Work Phone: Start: 11-22-2023 End: 11-25-2023 Evaluation and management of inpatient MD Brian Elizabeth Work Phone: [facility] [place] [address] Work Phone: Start: 11-22-2023 End: 11-22-2023 Emergency department patient visit HARRIS Crandall BRIAN [facility] Start: 10-09-2023 End: 10-09-2023 Orders Only Jordan Rivera SECOND FLOOR OPERATOR-HOSPICE MUSIC THERAPY Work Phone: [facility] Start: 08-29-2023 End: 08-29-2023 ambulatory [facility] Start: 08-22-2023 End: 08-22-2023 ambulatory [facility] Start: 08-14-2023 Telephone encounter Malia Hammond MA [facility] Start: 08-13-2023 End: 08-13-2023 ambulatory [facility] Start: 08-06-2023 End: 08-06-2023 [facility] Start: 07-30-2023 End: 07-31-2023 Emergency department patient visit HAROLDO SOTO [facility] Start: 07-23-2023 End: 07-23-2023 Office outpatient new 45 minutes Harris Torres MD Work Phone: [facility] Comment on above: Irritable bowel synd sarah with both constipation and diarrhea (Primary Dx); 9 weeks gestation of Start: 07-23-2023 End: 07-23-2023 ambulatory [facility] Start: 05-29-2023 End: 06-01-2023 ambulatory [facility] Start: 11-14-2022 End: 11-14-2022 ambulatory [facility] Start: 10-23-2022 End: 10-24-2022 ambulatory [facility] Start: 10-23-2022 End: 10-23-2022 Subsequent hospital visit by physician [facility] Comment on above: Rectal bleeding; Abnormal CT of the abdomen Start: 08-07-2022 End: 08-07-[address] SHARMILA KING Facility:[facility] Start: 02-14-2022 End: 02-14-[address] SHARMILA KING Facility:[facility] Procedures Date Procedure Procedure Detail Performing Clinician Start: 08-16-2024 Urnls dip stick/tabl et rgnt non-auto w/o micrscp Pradip Lionel DO Work Phone: Start: 07-26-2024 Urnls dip stick/tabl et rgnt non-auto w/o micrscp Dasha WAGNER Work Phone: Start: 07-07-2024 Urnls dip stick/tabl et rgnt non-auto w/o micrscp Dasha WAGNER Work Phone: Start: 06-22-2024 Urnls dip stick/tabl et rgnt non-auto w/o micrscp Pradip Lionel DO Work Phone: Start: 05-29-2024 ALL CBC WITH AUTO DIFF [...] micrscp Pradip Lionel DO Work Phone: Start: 02-05-2024 Urnls dip stick/tabl et rgnt non-auto w/o micrscp Harris Torres MD Work Phone: Start: 07-23-2023 Adult depression scr eening assessment Harris Torres MD Work Phone: Start: 10-23-2022 Assay of gammaglobul in iga igd igg igm each Carli Tavon Wild SECOND FLOOR OPERATOR - HOSPICE MUSIC THERAPY Work Phone: Plan of Treatment Date Care Activity Detail Author Start: 08-02-2031 DTaP,Tdap and Td Vaccines (7 - Td or Tdap) DTaP,Tdap and Td Vaccines (7 - Td or Tdap) [facility] Start: 08-02-2031 DTaP/Tdap/Td vaccine (7 - Td or Tdap) DTaP/Tdap/Td vaccine (7 - Td or Tdap) [facility] Start: 02-04-2025 Tobacco Screening Tobacco Screening [facility] Start: 11-21-2024 Adult BMI Screening Adult BMI Screen ing [facility] Start: 09-01-2024 End: 09-01-2024 Patient encounter procedure 09/01/2024 8:50 AM EDT Routine [facility] [address] [place] [id number] Dasha Martin, PA [address] [place], [place] [id number] [facility] Start: 08-16-2024 End: 08-16-2024 Patient encounter procedure 08/16/2024 9:10 AM EDT Routine [facility] [address] [place] [address] Pradip Flowers DO [address] [place], [place] [id number] [facility] Start: 08-16-2024 End: 08-16-2024 Professional / ancillary services management 08/16/2024 8:30 AM EDT Ancillary Procedure [facility] [address] [place] [phone] [facility] Start: 07-29-2024 Adult BMI Screening Adult BMI Screen ing [facility] Start: 07-29-2024 Tobacco Screening Tobacco Screening [facility] Start: 07-26-2024 End: 07-26-2024 Patient encounter procedure 07/26/2024 3:20 PM EDT Routine [facility] [address] [place] [phone] Dasha Martin PA [address] [place], [place] [id number] [facility] Start: 07-26-2024 End: 07-26-2025 US for US OB follow up transabdominal approach Imaging Routine size inconsistent with dates Expected: 07/26/2024 (Approximate), Expires: 07/26/2025 [facility] Work Phone: Comment on above: Expected: 07/26/2024 (Approximate), Expires: 07/26/2025 Start: 07-22-2024 Adult BMI Screening Adult BMI Screen ing [facility] Start: 07-22-2024 Depression Screening Depression Scre ening [facility] Start: 07-22-2024 Tobacco Screening Tobacco Screening [facility] Start: 07-07-2024 End: 07-07-2024 Patient encounter procedure [facility] Comment on above: Arrived Start: 06-22-2024 End: 06-22-2024 Patient encounter procedure 06/22/2024 9:50 AM EST Routine [facility] [address] [place] [phone] Pradip Flowers DO [address] [place], [place] [id number] [facility] Start: 05-26-2024 End: 05-26-2024 Patient encounter procedure [facility] Comment on above: Arrived Start: 05-26-2024 End: 05-26-2025 CBC panel - Blood by Automated count CBC Lab Routine Diabetes mellitus screening Expected: 05/26/2024 (Approximate), Expires: 05/26/2025 [facility] Work Phone: Comment on above: Expected: 05/26/2024 (Approximate), Expires: 05/26/2025 Start: 05-26-2024 End: 05-26-2025 Measurement of glucose 1 hour after glucose challenge for glucose tolerance test Glucose tolerance, 1 hour Lab Routine Diabetes mellitus screening Expected: 05/26/2024 (Approximate), Expires: 05/26/2025 [facility] Comment on above: Expected: 05/26/2024 (Approximate), Expires: 05/26/2025 Start: 05-06-2024 End: 05-06-2024 Alpha fetoprotein, maternal Alpha fetoprotein, maternal Lab Routine Need for maternal serum alpha-protein (MSAFP) screening Expected: 05/06/2024 (Approximate), Expires: 05/06/2024 [facility] Comment on above: Expected: 05/06/2024 (Approximate), Expires: 05/06/2024 Start: 05-06-2024 End: 05-06-2024 Patient encounter procedure [facility] Comment on above: Arrived Start: 04-06-2024 End: 04-06-2025 US for US OB ANATOMY SINGLE W US OB CERVICAL LENGTH Imaging Routine Screening, , for anatomic survey Expected: 04/06/2024 (Approximate), Expires: 04/06/2025 [facility] Comment on above: Expected: 04/06/2024 (Approximate), Expires: 04/06/2025 Start: 04-06-2024 End: 04-06-2024 Patient encounter procedure [facility] Comment on above: Arrived Start: 03-09-2024 End: 03-09-2024 Patient encounter procedure [facility] Comment on above: Arrived Start: 02-19-2024 End: 02-18-2025 ABO/Rh ABO/Rh Lab Routine Missed menses , unspecified gestational age Expected: 02/19/2024 (Approximate), Expires: 02/18/2025 [facility] Comment on above: Expected: 02/19/2024 (Approximate), Expires: 02/18/2025 Start: 02-19-2024 End: 02-18-2025 Blood type and Indirect antibody screen panel - Blood Type and screen Lab Routine Missed menses , unspecified gestational age Expected: 02/19/2024 (Approximate), Expires: 02/18/2025 [facility] Work Phone: Comment on above: Expected: 02/19/2024 (Approximate), Expires: 02/18/2025 Start: 02-19-2024 End: 02-18-2025 Drugs of abuse panel - Urine by Screen method Rapid drug screen, urine Lab Routine , unspecified gestational age Encounter for supervision of normal first in first trimester Expected: 02/19/2024 (Approximate), Expires: 02/18/2025 [facility] Comment on above: Expected: 02/19/2024 (Approximate), Expires: 02/18/2025 Start: 02-19-2024 End: 02-18-2025 US Pelvis transvaginal US OB transvaginal Imaging Routine Missed menses Expected: 02/19/2024 (Approximate), Expires: 02/18/2025 [facility] Comment on above: Expected: 02/19/2024 (Approximate), Expires: 02/18/2025 Start: 02-05-2024 End: 02-04-2025 Urinalysis Urinalysis Lab Routine Dysuria Expected: 02/05/2024 (Approximate), Expires: 02/04/2025 [facility] Work Phone: Comment on above: Expected: 02/05/2024 (Approximate), Expires: 02/04/2025 Start: 01-18-2024 Influenza vaccination Influenza Vacc ine [facility] Start: 11-25-2023 [facility] Start: 11-22-2023 Hospital admission [facility] Start: 11-22-2023 [facility] Start: 01-17-2023 Influenza vaccination Influenza Vacc ine [facility] Start: 12-17-2022 Influenza vaccination Flu vacc ine (Season Ended) [facility] Start: 04-03-2022 Screening for Chlamy altagracia trachomatis Chlamydia Screening [facility] Start: 09-23-2020 Screening for malign ant neoplasm of cervix Pap smear [facility] Start: 09-23-2017 Hepatitis C screening Hepatitis C sc reen [facility] [employer] Start: 2015 Screening for Chlamy altagracia trachomatis Chlamydia/GC screen [facility] Start: 09-23-2014 HIV screening HIV screen [facility] [place] [employer] Start: 2011 Depression Screen Depression Screen [facility] [employer] Start: 03-26-2000 COVID-19 Vaccine (#1) COVID-19 Vacci ne (#1) [facility] [employer] Start: 1999 Screening for Chlamy altagracia trachomatis Chlamydia Screening [facility] Bacteria identified in Urine by Culture Urine culture Microbiology Routine Missed menses Ordered: 02/19/2024 [facility] Comment on above: Ordered: 02/19/2024 End: 02-04-2025 Bacteria identified in Urine by Culture Urine culture (clean catch) Microbiology Routine Dysuria 1 Occurrences starting 02/05/2024 until 02/04/2025 [facility] Comment on above: 1 Occurrences starti ng 02/05/2024 until 02/04/2025 End: 10-23-2022 Calprotectin Stool [facility] [employer] Phone: Comment on above: 1 Occurrences starti ng 10/23/2022 until 10/23/2022 CBC W Auto Different ial panel - Blood CBC and differential Lab Routine Missed menses , unspecified gestational age Ordered: 02/19/2024 [facility] Comment on above: Ordered: 02/19/2024 Celiac Disease Panel Celiac Dise ase Panel Lab Routine Rectal bleeding Abnormal CT of the abdomen 10/23/2022 4:23 PM EDT [facility] Phone: CHLAMYDIA TRACHOMATI S (GENITO/STI) CHLAMYDIA TRACHOMATIS (GENITO/STI) Lab Routine Exposure to STD Ordered: 04/06/2024 [facility] Comment on above: Ordered: 04/06/2024 Cytology Cervical or vaginal smear or scraping study Pap Smear Pathology and Cytology Routine Well woman exam with routine gynecological exam Ordered: 04/06/2024 [facility] Comment on above: Ordered: 04/06/2024 Hemoglobin A1c/Hemoglobin.total in Blood Hemoglobin A1c Lab Routine Missed menses , unspecified gestational age Ordered: 02/19/2024 [facility] Comment on above: Ordered: 02/19/2024 Hepatitis B virus surface Ag [Presence] in Serum or Plasma by Immunoassay Hepatitis B surface antigen Lab Routine Missed menses , unspecified gestational age Ordered: 02/19/2024 [facility] Comment on above: Ordered: 02/19/2024 Hepatitis C virus Ab [Presence] in Serum or Plasma by Immunoassay Hepatitis C antibody Lab Routine Missed menses , unspecified gestational age Ordered: 02/19/2024 [facility] Comment on above: Ordered: 02/19/2024 HIV-1/HIV-2 antigen/antibody combination immunoassay HIV-1 and HIV-2 antibodies Lab Routine Missed menses , unspecified gestational age Ordered: 02/19/2024 [facility] Comment on above: Ordered: 02/19/2024 Neisseria gonorrhoea e DNA [Presence] in Unspecified specimen by TRACY with probe detection Neisseria gonorrhea DNA probe, direct Lab Routine Exposure to STD Ordered: 04/06/2024 [facility] Comment on above: Ordered: 04/06/2024 Patient Education Depression, Ad ult (DC) [facility] DC Instructions Know your Meds [facility] Work Phone: Patient referral [facility] Work Phone: Reagin Ab [Presence] in Serum by RPR RPR Lab Routine Missed menses , unspecified gestational age Ordered: 02/19/2024 [facility] Comment on above: Ordered: 02/19/2024 Rubella antibody, IgG Rubella an tibody, IgG Lab Routine Missed menses , unspecified gestational age Ordered: 02/19/2024 [facility] Comment on above: Ordered: 02/19/2024 SURESWAB(R) ADVANCED VAGINITIS PLUS, TMA SURESWAB(R) ADVANCED VAGINITIS PLUS, TMA Pathology and Cytology Routine Exposure to STD Ordered: 04/06/2024 [facility] Work Phone: Comment on above: Ordered: 04/06/2024 Payers Date Payer Category Payer Self-pay 2021 Medicaid (Managed Care) [employer] [id number] 2021 Medicaid [id number] 2019 Unknown VIRI REYNA (PPO) [id number] 2019-Present [phone] [address] [place] [address] [id number]. [id number] 1999 Unknown [id number] 2.16.840.1.333416.3.579.2. 593 1999 Unknown [id number] 2.16.840.1.987132.3.579.2. 593 1999 Unknown [id number] 2.16840.1.032622.3.579.2. 174 1999 Unknown [id number] 2.16840.1.862636.3.579.2. 174 1999 Unknown [id number] 2.16.840.1.877001.3.579.2. 173 1999 Unknown [id number] 2.16.840.1.881732.3.579.2. 1286 1999 Unknown [id number] 2.16.840.1.151679.3.579.2. 1286 1999 Unknown [id number] 2.16.840.1.355772.3.579.2. 1286 1999 Unknown [id number] 2.16.840.1.938079.3.579.2. 1285 1999 Unknown [id number] 2.16.840.1.667116.3.579.2. 1285 1999 Unknown [id number] 2.16.840.1.426789.3.579.2. 1285 1999 Unknown [id number] 2.16.840.1.346367.3.579.2. 1285 1999 Unknown [id number] 2.16.840.1.169692.3.579.2. 1285 1999 Unknown [id number] 2.16.840.1.521901.3.579.2. 1285 1999 Unknown [id number] 2.16.840.1.889898.3.579.2. 1285 1999 Unknown [id number] 2.16.840.1.559693.3.579.2. 1285 1999 Unknown [id number] 2.16.840.1.328068.3.579.2. 1285 1999 Unknown [id number] 2.16.840.1.109124.3.579.2. 1258 1999 Unknown [id number] 2.16.840.1.267540.3.579.2. 1258 1999 Unknown [id number] 2.16.840.1.122799.3.579.2. 1258 1999 Unknown [id number] 2.16.840.1.389277.3.579.2. 1258 1999 Unknown [id number] 2.16.840.1.508870.3.579.2. 1258 1999 Unknown [id number] 2.16.840.1.702208.3.579.2. 1258 1999 Unknown [id number] 2.16.840.1.274909.3.579.2. 1258 1999 Unknown [id number] 2.16.840.1.210323.3.579.2. 1259 1999 Unknown [id number] 2.16.840.1.312131.3.579.2. 1259 1999 Unknown [id number] 2.16.840.1.255778.3.579.2. 1259 1959 Unknown [id number] 1959 Unknown [id number] Unknown [id number] 2.16.840.1.345250.3.579.2. 531 Unknown [id number] 2.16.840.1.334667.3.579.2. 531 Social History Date Type Detail Facility Start: 10-23-2022 End: 08-13-2023 Tobacco smoking status NHIS Never smoked tobacco [employer] Phone: Start: 10-23-2022 End: 07-23-2023 Tobacco use and exposure Smokeless tobacco non-user [employer] Phone: Start: 1999 Sex Assigned At Not on file [employer] Phone: Start: 1999 Sex Assigned At Female [facility] Start: 02-19-2024 End: 08-16-2024 Alcoholic beverage intake Lifetime non-drinker (finding) [facility] [employer] [facility] Start: 08-13-2023 End: 02-19-2024 History of Social function [facility] [employer] [facility] Start: 08-13-2023 End: 02-19-2024 Tobacco use panel [facility] [employer] [facility] Start: 07-24-2023 Sexual orientation Heterosexual (finding) [facility] Start: 05-27-[address] [facility] How often to you hav e a drink containing alcohol? Never [facility] [employer] [facility] Average Number of Drinks Not on file [facility] How hard is it for y ou to pay for the very basics like food, housing, medical care, and heating Somewhat hard [facility] The thought of kelli flynn myself has occurred to me Hardly ever [facility] Goals Date Patient Goal Desired Activity /State Functional Status Date Assessment Result Facility 11-25-2023 Functional status Patient at Baseline [facility] Work Phone: Mental Status Date Assessment Result Facility 11-25-2023 Cognitive function Cognitive Sta tus Patient at Baseline [facility] Work Phone: Clinical Notes 07-23-2023 to 08-16-2024 Yanira Verduzco NP - 08/16/2024 9:10 AM KRISTY Mandujano - 07/26/2024 3:20 PM KRISTY Mandujano - 07/07/2024 10:20 AM Uriah Gale LPN - 06/22/2024 9:50 AM KRISTY Aviles - 05/26/2024 2:20 PM EST Note Date & Type Note Facility 08-16-2024 History of Present illness Narrative Reason for Appointment: Patient ID: Bassam Collado is a 23 y.o. female who presents for Routine Visit Patient presents today for Return OB appointment. MEDICATIONS Current Outpatient Medications Medication Instructions iron polysaccharides (PROFE) 391.3 mg, Daily ondansetron ODT (ZOFRAN-ODT) 4 mg, Oral, Every 6 hours PRN MV & Min w/FA-DHA ( Gummies) 0.18-25 MG chewable tablet 1 each, Oral, Daily sertraline (ZOLOFT) 50 mg, Daily ALLERGIES Allergies Allergen Reactions Amoxicillin Other Reaction(s): stomach upset, Vomiting Other Reaction(s): Vomiting Other Reaction(s): Nausea/Vomiting PROBLEMS Active Ambulatory Problems Diagnosis Date Noted [...] Negative. Musculoskeletal: Negative. Skin: Negative. Neurological: Negative. Psychiatric/Behavioral: Negative. Hematological: Negative. Endocrine: Negative. Allergic/Immunologic: Negative. OBJECTIVE [...] nursing note reviewed. Exam conducted with a nut chopper present. Vitals: Estimated body mass index is 28.16 kg/m as calculated from the following: Height as of 18: 5' 6.25 . Weight as of this encounter: 175 lb 12.8 oz. BP: 110/70 Patient's last menstrual period was 12/19/2023. ASSESSMENT & PLAN ICD-10-CM 1. 34 weeks gestation of Z3A.34 POCT urinalysis dipstick manually resulted 2. Third trimester Z34.93 POCT urinalysis dipstick manually resulted Return OB: Patient presents today for a routine obstetrics appointment. Patient is currently 34w3d . Patient states she is doing well but has complaints of being tired due to current . Patient has verbalizes frequent movement. labor precautions was discussed/given and patient was instructed to perform kick counts three times a day. Orders Placed This Encounter Procedures POCT urinalysis dipstick manually resulted Follow Up: Patient is to return to office in 2 week for routine OB appointment. Documented by Yanira Verduzco NP on behalf of: Pradip Flowers DO documented in this encounter [facility] 07-26-2024 History of Present illness Narrative Reason for Appointment: Patient ID: [...] Vitamins) 28-0.8 MG tablet 1 tablet, Daily Vit-Fe Fumarate-FA (Se-Tyson 19) 29-1 MG chewable tablet 1 tablet, Daily sertraline (ZOLOFT) 50 mg, Daily ALLERGIES Allergies Allergen Reactions Amoxicillin Other Reaction(s): stomach upset, Vomiting Other Reaction(s): Vomiting Other Reaction(s): Nausea/Vomiting PROBLEMS Active Ambulatory Problems Diagnosis Date Noted [...] reviewed. Vitals: Estimated body mass index is 26.4 kg/m as calculated from the following: Height as of 04/13/18: 5' 6.25 . Weight as of 07/07/24: 164 lb 12.8 oz. BP: Patient's last menstrual period was 12/19/2023. ASSESSMENT & PLAN ICD-10-CM 1. Third trimester Z34.93 POCT urinalysis dipstick manually resulted 2. 31 weeks gestation of Z3A.31 Return OB: Patient presents today for a routine obstetrics appointment. Patient is currently 31w3d . Patient states she is doing well but has complaints of being tired due to current . Patient has verbalizes frequent movement. labor precautions was discussed/given and patient was instructed to perform kick counts three times a day. Orders Placed This Encounter Procedures POCT urinalysis dipstick manually resulted Follow Up: Patient is to return to office in 2 week for routine OB appointment. Documented by Jacklyn Gr MA on behalf of: KRISTY Alfaro documented in this encounter [facility] 07-07-2024 History of Present illness Narrative Reason for Appointment: Patient ID: [...] Reaction(s): stomach upset, Vomiting Other Reaction(s): Vomiting Other Reaction(s): Nausea/Vomiting PROBLEMS Active Ambulatory Problems Diagnosis Date Noted [...] nursing note reviewed. Exam conducted with a nut chopper present. Vitals: Estimated body mass index is 26.4 kg/m as calculated from the following: Height as of 18: 5' 6.25 . Weight as of this encounter: 164 lb 12.8 oz. BP: 116/70 Patient's last menstrual period was 12/19/2023. ASSESSMENT & PLAN ICD-10-CM 1. 28 weeks gestation of Z3A.28 POCT urinalysis dipstick manually resulted 2. Third trimester Z34.93 POCT urinalysis dipstick manually resulted Return OB: Patient presents today for a routine obstetrics appointment. Patient is currently 28w5d . Patient states she is doing well but has complaints of being tired due to current . Patient has verbalizes frequent movement. labor precautions was discussed/given and patient was instructed to perform kick counts three times a day. Orders Placed This Encounter Procedures POCT urinalysis dipstick manually resulted Patient states lower extremity varicosites are worsening, we will try to order pair of 15-20mmhg for her to get to help with discomfort Follow Up: Patient is to return to office in 2 week for routine OB appointment. Documented by Gisele Mackay LPN on behalf of: KRISTY Alfaro documented in this encounter [facility] 06-22-2024 History of Present illness Narrative Reason for Appointment: Patient ID: Bassam Collado is a 23 y.o. female who presents for Routine Visit Patient presents today for Return OB appointment. MEDICATIONS Current Outpatient Medications Medication Instructions iron polysaccharides (PROFE) 391.3 mg, Oral, Daily ondansetron ODT (ZOFRAN-ODT) 4 mg, Oral, Every 6 hours PRN MV & Min w/FA-DHA ( Gummies) 0.18-25 MG chewable tablet 1 each, Oral, Daily Vit-Fe Fumarate-FA ( Vitamins) 28-0.8 MG tablet 1 tablet, Daily sertraline (ZOLOFT) 50 mg, Daily ALLERGIES Allergies Allergen Reactions Amoxicillin Other Reaction(s): stomach upset, Vomiting Other Reaction(s): Vomiting Other Reaction(s): Nausea/Vomiting PROBLEMS Active Ambulatory Problems Diagnosis Date Noted [...] nursing note reviewed. Exam conducted with a nut chopper present. Vitals: Estimated body mass index is 25.65 kg/m as calculated from the following: Height as of 18: 5' 6.25 . Weight as of this encounter: 160 lb 1.9 oz. BP: 104/68 Patient's last menstrual period was 12/19/2023. ASSESSMENT & PLAN ICD-10-CM 1. Second trimester Z34.92 Urine dip 2. 26 weeks gestation of Z3A.26 Urine dip Return OB: Patient presents today for a routine obstetrics appointment. Patient is currently 26w4d . Patient states she is doing well but has complaints of being tired due to current . Patient has verbalizes frequent movement. labor precautions was discussed/given and patient was instructed to perform kick counts three times a day. Pt has varicose veins that are painful. Pt advise to use thigh high compression stockings. Orders Placed This Encounter Procedures Urine dip Follow Up: Patient is to return to office in 2 week for routine OB appointment. Documented by Iris Gale LPN on behalf of: Pradip Flowers DO documented in this encounter [facility] 05-26-2024 History of Present illness Narrative Reason for Appointment: Patient ID: [...] of: KRISTY Alfaro documented in this encounter [facility] 05-06-2024 History of Present illness Narrative Reason for Appointment: Patient ID: [...] nursing note reviewed. Exam conducted with a nut chopper present. Vitals: Estimated body mass index is [...] Pradip Flowers DO documented in this encounter [facility] 04-06-2024 History of Present illness Narrative Reason for Appointment: Patient ID: [...] nursing note reviewed. Exam conducted with a nut chopper present. Vitals: Estimated body mass index is [...] of: KRISTY Alfaro documented in this encounter [facility] 03-09-2024 History of Present illness Narrative Reason for Appointment: Patient ID: [...] nursing note reviewed. Exam conducted with a nut chopper present. Vitals: Estimated body mass index is [...] or undercooked meat, and stay away from [facility]. Patient has been consulted regarding any further do's and don'ts of . Patient voiced understanding and all questions and concerns were answered. Orders Placed This Encounter Procedures POCT urinalysis dipstick manually resulted Follow Up: Patient is to return in 4 weeks for routine OB appointment. Documented by Iris Gale LPN on behalf of: Pradip Flowers DO documented in this encounter [facility] 02-19-2024 History of Present illness Narrative Reason for Appointment: Patient ID: [...] or undercooked meat, and stay away from [facility]. Patient has also been advised to [...] Sridevi Stone LPN documented in this encounter [facility] 02-05-2024 History of Present illness Narrative Images from the original note were not included. [address] [place] [phone] Patient: Bassam Collado Date of : 2000 Encounter Date: 02/05/2024 SUBJECTIVE: Chief Complaint: Chief Complaint Patient presents with Urinary Tract Infection Started 3 weeks ago. Patient ID: Bassam Collado is a 23 y.o. female. Very pleasant 23-year-old female who is currently 7 weeks periods her 2nd here today with her toddler who is doing well and otherwise healthy She is describing symptoms of dysuria ongoing for approximately 3 weeks Possible uti symptom has been ongoing for over 3 weeks. Pain when urinating. She is also 7 weeks . No other issues and everything up to date. Urine dipstick in clinic negative. The following portions of the patient's history were reviewed and updated as appropriate: allergies, current medications, past family history, past medical history, past social history, past surgical history and problem list. PHYSICAL EXAMINATION: Vitals: 02/05/24 1044 BP: 118/62 Pulse: 104 Temp: 36.6 C (97.8 F) SpO2: 94% Weight: 61.4 kg (135 lb 6.4 oz) Height: 165.1 cm (5' 5 ) Physical Exam Vitals reviewed. Constitutional: General: [...] is no right CVA tenderness, left CVA tenderness or guarding. Comments: No significant supra pubic tenderness Musculoskeletal: Cervical back: Normal range of motion and neck supple. Neurological: Mental Status: She is alert and oriented to person, place, and time. Mental status is at baseline. ASSESSMENT/PLAN: Bassam was seen today for urinary tract infection. Diagnoses and all orders for this visit: Dysuria - Urinalysis; Future - Urine culture (clean catch); Future - POCT urinalysis dipstick only - nitrofurantoin, macrocrystal-monohydrate, (MACROBID) 100 mg capsule; Take 1 capsule (100 mg total) by mouth in the morning and 1 capsule (100 mg total) before bedtime. Do all this for 5 days. UA in the clinic appears negative Will send out for culture given patient's suspicious symptoms Of note she was newly of proximally 7 weeks by last menstrual period. Has established OB Gyne provider Medications reviewed he is overall in good health. HARRIS TORRES MD Family Medicine Physician [facility] Medicine / [facility] 02/05/24 This note was completed with voice recognition software. The document was reviewed for errors however some may still be present. Please do not hesitate to contact/Epic msg the author to verify any questions/concerns. documented in this encounter [facility] 11-24-2023 Progress note Note Date/Time November 24, 2023 1:21p m [facility] [address] [place] [address] Psychiatry Progress Note Signed Patient: Bassam Collado MR#: [id number] : 2000 Acct:[id number] Age/Sex: 23 / F Adm Date: 4 Loc: Room: [address] [place] [address] Type : ADM IN Attending Dr: Krzysztof [...] signed by Demetrius Kelley MD> 11/24/23 132[address] [facility] Work Phone: 1(365) 332-624007-07-2024 History and physical note Author Krzysztof vargas [facility] November 23, 2023 9:45am Note Date/Time November 23, 2023 7:42a m [facility] [address] [place] [address] Psychiatry H&P Signed Patient: Bassam Collado MR#: [id number] : 2000 Acct:[id number] Age/Sex: 23 / F Adm Date: 4 Loc: Room: [address] [place] [address] Type: ADM IN Attending Dr: Krzysztof Montesinos [...] them for any support. 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 Concerning for miscarriage/ termination Please call patient to see if she would like appointment with provider to discuss or if OB providerhas already reviewed? * Telephone Encounter - Malia Sanchez CMA - 08/14/2023 1:54 PM EDT Called patient she stated that she did not need to set up an appointment [facility] Telephone encounter Note* Telephone Encounter - Malia Sanchez CMA - 08/14/2023 1:54 PM EDT ----- Message from Harris Torres MD sent at 08/14/2023 12:44 PM EDT ----- Abnormal result. Concerning for miscarriage/ termination Please call patient to see if she would like appointment with provider to discuss or if OB providerhas already reviewed? [facility]03-28-2024 Telephone encounter Note* Telephone Encounter - Malia Sanchez CMA - 08/14/2023 1:54 PM EDT Called patient she stated that she did not need to set up an appointment [facility]03-06-2024 History of Present illness Narrative* Harris Torres MD - 07/23/2023 9:00 AM EST Images from the original note were not included. [address] [place] [address] [address] [facility] [phone] Patient: Bassam Collado Date of : 2000 Encounter Date: 07/23/2023 SUBJECTIVE: Chief Complaint: Chief Complaint Patient presents with [facility] Care Patient ID: Bassam Collado is a [...] of probiotics regularly Follow-up as needed. HARRIS TORRES MD Family Medicine Physician [facility] Family Medicine / [facility] 07/23/23 This note was completed with voice recognition software. The document was reviewed for errors however some may still be present. Please do not hesitate to contact/Epic msg the author to verify any questions/concerns. documented in this [facility] SystemDis[facility] summary Author Demetrius Kelley [facility] November 25, 2023 12:08pm Note Date/Time November 25, 2023 11:13 am [facility] [address] [place] [address] Discharge Summary Signed Patient: Bassam Collado MR#: [id number] : 2000 Acct:[id number] Age/Sex: 23 / F Adm Date: 4 Loc: Room: [address] [place] [address]: Krzysztof Montesinos MD Copies to: [...] them for any support. 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 If at any time you are feeling an increase inyour psychiatric symptoms, call your physician or behavioral healthcare provider. If any time you have thoughts of harming yourself or others contact one of the following: Call (available 09/12) Crisis Text Line (available 09/12) text 4HOPE to [phone] [facility] Hope Line (available 8 a.m. Midnight) call [phone] ([phone]) Instructions: Depression, Adult (DC), [facility] Behavioral Health [place] [...] PO DAILY PRN (Reason: constipation) Follow Up: [facility] [Outside] - 11/26/23 (This will be [...] signed by Demetrius Kelley MD> 11/25/23 [address] [facility] Work Phone: Evaluation note* Diagnosis Rectal bleeding Hemorrhage of rectum and anus Abnormal CT of the abdomen Nonspecific (abnormal) findings on radiological and other examination of abdominal area, including retroperitoneum documented in this encounter [facility] Work Phone: evaluation note* Diagnosis Onset Date Resolution Status Major depressive disorder, recurrent, moderate acute [facility] Work Phone: evaluation note* Diagnosis Missed menses , unspecified gestational [...] diabetes mellitus [facility] Diagnosis Second trimester state, incidental 26 weeks gestation of [facility]* Diagnosis Irritable bowel syndrome with both constipation and diarrhea- Primary 9 weeks gestation of [facility] Diagnosis Dysuria- Primary [facility] Diagnosis 28 weeks gestation of Third trimester state, incidental [facility]* Diagnosis Third trimester state, incidental 31 weeks gestation of size inconsistent with dates [facility]* Diagnosis 34 weeks gestation of Third trimester state, incidental documented in this encounter [facility] HealthcareInstructionsNot on filedocumented in this encounterProMediWilson [facility] SystemInstructionsNot on filedocumented in this encounterProGuernsey Memorial Hospital SystemInstructionsNot on filedocumented in this encounterProGuernsey [facility] InstructionsNot on filedocumented in this encounterProGuernsey [facility] System Summary Purpose Family History No Family History Records FoundNo Family History Records FoundNo Family History Records FoundNo Family History Records FoundNo Family History Records FoundNo Family History Records FoundNo Family History Records FoundNo Family History Records FoundNo Family History Records Found Advance Directives No Advanced Directives Records Found Advance Directive Response Recorded Date/ Time Advance Directives No November 21 1:28pm Date Activated Date Inactivated Comments 09/25/2021 12:10 PM 09/27/2021 3:39 PM Date Activated Date Inactivated Comments 08/24/2021 12:03 PM 08/24/2021 2:24 PM Latest Code Status on File Code Status Date Activated Date Inactivated Comments Full Code 09/25/2021 12:10 PM 09/27/2021 3:39 PM Code Status History Code Status Date Activated Date Inactivated Comments Full Code 08/24/2021 12:03 PM 08/24/2021 2:24 PM Chief Complaint and Reason for Visit Chief Complaint Major Depression Major Depression Reason for Visit Major depressive dis order, recurrent, moderate Additional Source Comments INFORMATION SOURCE (unrecogn ized section and content) DATE CREATED AUTHOR 08/10/2022 [facility] DATE CREATED AUTHOR AUTHOR'S ORGANIZ ATION 11/18/2022 [facility] DATE CREATED AUTHOR AUTHOR'S ORGANIZ ATION 02/26/2023 [facility] DATE CREATED AUTHOR AUTHOR'S ORGANIZ ATION 06/01/2023 [facility] DATE CREATED AUTHOR AUTHOR'S ORGANIZ ATION 02/07/2024 [facility] DATE CREATED AUTHOR AUTHOR'S ORGANIZ ATION 02/08/2024 [facility] DATE CREATED AUTHOR AUTHOR'S ORGANIZ ATION 03/03/[address] [facility] DATE CREATED AUTHOR AUTHOR'S ORGANIZ ATION 03/14/2024 [facility] DATE CREATED AUTHOR AUTHOR'S ORGANIZ ATION 08/18/2024 [facility] Special[facility] EPIC Care Teams (unrecognized sec tion and content) Team Status: Active Member Role Status Dates [...] Other Provider Active Start: November 23, 2023 Hand Candy Molder Relationship Specialty Start Date End Date Sharmila King MD [address] [place] [phone] PCP - External PCP Family Medicine 10/26/22 Harris Torres MD [address] [facility] [place] [address] PCP - General Family Medicine 08/14/23 Hand Candy Molder Relationship Specialty Start Date End Date Sharmila King MD [address] [place] [phone] PCP - External PCP Family Medicine 10/26/22 Harris Torres MD [address] [facility] [place] [address] PCP - General Family Medicine 08/14/23 Hand Candy Molder Relationship Specialty Start Date End Date Sharmila King MD [address] [place] [phone] PCP - External PCP Family Medicine 10/26/22 Harris Torres MD [address] [place] [address] PCP - General Family Medicine 08/14/23 Hand Candy Molder Relationship Specialty Start Date End Date Sharmila King MD [address] [place] [phone] PCP - External PCP Family Medicine 10/26/22 Harris Torres MD [address] [place] [address] PCP - General Family Medicine 08/14/23 Hand Candy Molder Relationship Specialty Start Date End Date Sharmila King MD [address] [place] [phone] PCP - External PCP Family Medicine 10/26/22 Harris Torres MD [address] [facility] [place] [address] PCP - General Family Medicine 08/14/23 Hand Candy Molder Relationship Specialty Start Date End Date Sharmila King MD [address] [place] [phone] PCP - External PCP Family Medicine 10/26/22 Harris Torres MD [address] [place] [address] PCP - General Family Medicine 08/14/23 Hand Candy Molder Relationship Specialty Start Date End Date Sharmila King MD [address] [place] [address] PCP - External PCP Family Medicine 10/26/22 Harris Torres MD [address] [place] [address] PCP - General Family Medicine 08/14/23 Hand Candy Molder Relationship Specialty Start Date End Date Sharmila King MD [address] [place] [phone] PCP - External PCP Family Medicine 10/26/22 Harris Torres MD [address], [place] [address] PCP - General Family Medicine 08/14/23 Hand Candy Molder Relationship Specialty Start Date End Date Sharmila King MD [address] [place] [address] PCP - External PCP Family Medicine 10/26/22 Harris Torres MD [address], [place] [address] PCP - General Family Medicine 08/14/23 Hand Candy Molder Relationship Specialty Start Date End Date Harris Torres MD [address] [place] [address] PCP - General Internal Medicine 07/23/23 Hand Candy Molder Relationship Specialty Start Date End Date Harris Torres MD [address] [place] [address] PCP - General Internal Medicine 07/23/23 Hand Candy Molder Relationship Specialty Start Date End Date Harris Torres MD [address] [place] [address] PCP - General Internal Medicine 07/23/23 Hand Candy Molder Relationship Specialty Start Date End Date Harris Torres MD [address] [place] [address] PCP - General Internal Medicine 11/22/23 Hand Candy Molder Relationship Specialty Start Date End Date Sharmila King MD [address] [place] [phone] PCP - External PCP Family Medicine 10/26/22 Harris Torres MD [address] [facility] [place] [address] PCP - General Family Medicine 08/14/23 Hand Candy Molder Relationship Specialty Start Date End Date Sharmila King MD [address] [place] [phone] PCP - External PCP Family Medicine 10/26/22 Harris Torres MD [address] [facility] [place] [place] [address] PCP - General Family Medicine 08/14/23 Hand Candy Molder Relationship Specialty Start Date End Date Sharmila King MD [address] [place] [phone] PCP - External PCP Family Medicine 10/26/22 Harris Torres MD [address] [place] [address] PCP - General Family Medicine 08/14/23 Reason for Visit (unrecogniz ed section and content) Reason Comments Amenorrhea Reason Comments Routine Visit Reason Comments Establish Care Reason Comments Urinary Tract Infection Started 3 weeks ago. FOR RECORDS PERTAINING TO PATIENTS WHO ARE [...] BE BASED ON THE PRIMARY CLINICAL RECORDS. [employer] provides no warranty or guarantee of the accuracy or completeness of information in this document.
[2024-08-30 01:55] VITALS: BP 114/68; PULSE 105; TEMP 36.7
[2024-08-30] MEDS: METOCLOPRAMIDE HCL 10 MG/2 ML VIAL IVP (02:57)
[2024-08-30] MEDS: ONDANSETRON PF 4 MG/2 ML VIAL 8 MG IV (02:57)
[2024-08-30] MEDS: LACTATED RINGER'S SOLUTION 1,000 ML 125 ML IV (02:58)
[2024-08-30 03:00] LABS: Basophils Percent Auto 0.2 % (0.2-2.0); Eosinophils Percent Auto 0.1 % (0.9-7.0); Hematocrit 40.7 % (36.0-48.0); Hemoglobin 13.7 g/dL (12.0-16.0); Immature Granulocytes Abs Auto 0.06 10^3/uL (0.00-0.03); Immature Granulocytes Pct Auto 0.4 % (0.0-0.5); Lymphocytes Absolute Auto 0.7 10^3/uL (1.2-3.8); Mean Corpuscular HGB Conc 33.7 g/dL (29.9-35.2); Mean Corpuscular Hemoglobin 30.9 pg (26.7-34.0); Mean Corpuscular Volume 91.9 fL (81.0-99.0); Mean Platelet Volume 10.8 fL (9.5-13.5); Monocytes Absolute Auto 0.9 10^3/uL (0.3-0.8); Monocytes Percent Auto 6.3 % (1.7-12.0); Neutrophils Absolute Auto 11.9 10^3/uL (1.4-6.5); Platelet Count 175 10^3/uL (150-450); Red Blood Count 4.43 10^6/uL (4.20-5.40); Red Cell Distribution Width 13.2 % (11.0-15.0); White Blood Count 13.5 10^3/uL (4.0-11.0)
[2024-08-30 03:01] LABS: Bilirubin Urine SMALL (NEGATIVE); Blood Urine NEGATIVE (NEGATIVE); Clarity Urine CLEAR (CLEAR); Color Urine DK. YELLOW (YELLOW); Glucose Urine UA NEGATIVE (NEGATIVE); Ketones Urine >=80 mg/dL (NEGATIVE); Leukocyte Esterase Urine TRACE (NEGATIVE); Nitrite Urine NEGATIVE (NEGATIVE); Protein Urine 100 mg/dL (NEG/TRACE); Specific Gravity Urine 1.025 (1.005-1.025); Urine Microscopic Indicated YES
[2024-08-30 03:10] LABS: Bacteria Urine SMALL #/HPF (NONE SEEN); Cast Seen? NONE SEEN #/LPF (NONE SEEN); Crystals Seen? None Seen #/HPF (None Seen); Mucus Urine LARGE (NONE SEEN); RBC Urine NONE SEEN #/HPF (0-2); Squamous Epithelial Cell Urine FEW #/LPF (NONE/RARE); Urine Culture Indicated YES-LC
[2024-08-30 03:15] LABS: Alanine Aminotransferase 15 U/L (14-59); Albumin Globulin Ratio 0.7; Albumin Level 2.6 g/dL (3.4-5.0); Alkaline Phosphatase 154 U/L (46-116); Anion Gap 18.4; Aspartate Amino Transferase 17 U/L (15-37); BUN Creatinine Ratio 17.6; Bilirubin Total 0.5 mg/dL (0.2-1.0); Calcium 8.6 mg/dL (8.5-10.1); Carbon Dioxide 21.2 mmol/L (21.0-32.0); Chloride 107 mmol/L (98-107); Estimated GFR (African America >60 (>=60 mL/min/1.73m^2); Estimated GFR (Non-African Ame >60 (>=60 mL/min/1.73m^2); Globulin 3.5 g/dL; Glucose 103 mg/dL (74-106); Potassium 3.6 mmol/L (3.5-5.1); Sodium 143 mmol/L (136-145); Total Protein 6.1 g/dL (6.4-8.2)
[2024-08-30] MEDS: NITROFURANTOIN MONOHYD/MAC-CRST 100 MG CAPSULE PO (04:35)
== END 2024-08-30 04:20 | disposition home or self-care (01) ==
LOC: FBC 01:26
PROVIDERS: Obstetrics & Gynecology; Admitting Provider Obstetrics & Gynecology; PCP Student in an Organized Health Care Education/Training Program; Visit Provider Obstetrics & Gynecology
DX: O26.893 Other specified pregnancy related conditions, third trimester (principal); R10.9 Unspecified abdominal pain; Z3A.36 36 weeks gestation of pregnancy
CPT/HCPCS: 36415; 59025; 80053; 81001; 85025; 87086; 96374; 96375; G0378; G0379; J2405; J2765

== ENCOUNTER 2024-09-06 20:34 | Outpatient (REF) | payer OTHER, SELFPAY | END 2024-09-06 20:35 | disposition home or self-care (01) | LOC: LAB 20:34 | PROVIDERS: PCP Student in an Organized Health Care Education/Training Program; Visit Provider Obstetrics & Gynecology | DX: Z34.93 Encounter for supervision of normal pregnancy, unspecified, third trimester (principal) | CPT/HCPCS: 36415; 87081 ==

== ENCOUNTER 2024-09-13 13:06 | Outpatient (OUT) | payer OTHER, SELFPAY ==
--- NOTE | 2024-09-13 13:10 | US_ITS ---
[place] [address] Patient Name: BASSAM FERGUSON MRN: [id number] date: 2000 Sex: F Assigned Patient Location: [facility] Current Patient Location: Accession/Order Number: [id number] Exam Date: 09/13/2024 15:59 Report Date: 09/13/2024 16:00 At the request of: SHADI VAZQUEZ DO Procedure: US OB BPP w non-stress Biophysical profile. Reason for exam: Decreased movement. COMPARISON: None. TECHNIQUE: Transabdominal imaging of the gravid uterus was obtained. FINDINGS: The architecture professor reports a BPP of 8 out of 8. STUART is 10.3 cm. heart rate 136 bpm. US/US OB BPP w non-stress IMPRESSION: BPP 8 out of 8. Impression dictated by: Bertram Montilla Jr. DDonavanODonavan 09/13/2024 4:00 PM Dictation Location: [place] Electronically authenticated by: [id number] Y Date: 09/13/2024 16:00
[2024-09-13 14:10] VITALS: BP 112/79; PULSE 94
== END 2024-09-13 14:20 | disposition home or self-care (01) ==
LOC: FBC 13:23 → FBCO 09-14 08:13
PROVIDERS: PCP Student in an Organized Health Care Education/Training Program; Visit Provider Obstetrics & Gynecology
DX: O36.8130 Decreased fetal movements, third trimester, not applicable or unspecified (principal); Z3A.38 38 weeks gestation of pregnancy
CPT/HCPCS: 76818

== ENCOUNTER 2024-09-14 06:35 | Inpatient (IN) | payer OTHER, SELFPAY ==
[2024-09-14] VITALS (13 sets, daily range): BP systolic 120; BP diastolic 80; PULSE 66–90; TEMP 36.2–36.7
[2024-09-14 07:22] LABS: Bilirubin Urine NEGATIVE (NEGATIVE); Blood Urine NEGATIVE (NEGATIVE); Clarity Urine SL CLOUDY (CLEAR); Color Urine LT. YELLOW (YELLOW); Glucose Urine UA NEGATIVE (NEGATIVE); Ketones Urine NEGATIVE (NEGATIVE); Leukocyte Esterase Urine MODERATE (NEGATIVE); Nitrite Urine NEGATIVE (NEGATIVE); Protein Urine NEGATIVE (NEG/TRACE); Urobilinogen Urine 0.2 EU/dL (0.2-1.0)
[2024-09-14 07:26] LABS: Urine Microscopic Indicated YES
[2024-09-14 07:34] LABS: Bacteria Urine TRACE #/HPF (NONE SEEN); Cast Seen? NONE SEEN #/LPF (NONE SEEN); Crystals Seen? None Seen #/HPF (None Seen); Mucus Urine TRACE (NONE SEEN); RBC Urine 0-2 #/HPF (0-2); Squamous Epithelial Cell Urine MANY #/LPF (NONE/RARE)
[2024-09-14 07:35] LABS: Urine Culture Indicated YES-LC
[2024-09-14 07:54] LABS: Amphetamine Screen Urine NEGATIVE (NEGATIVE); Barbiturates Screen Urine NEGATIVE (NEGATIVE); Benzodiazepines Screen Urine NEGATIVE (NEGATIVE); Buprenorphine Screen Urine NEGATIVE (NEGATIVE); Cannabinoid Screen Urine NEGATIVE (NEGATIVE); Cocaine Screen Urine NEGATIVE (NEGATIVE); Methadone Screen Urine NEGATIVE (NEGATIVE); Methamphetamines Screen Urine NEGATIVE (NEGATIVE); Opiate Screen Urine NEGATIVE (NEGATIVE); Oxycodone Screen Urine NEGATIVE (NEGATIVE); Phencyclidine Screen Urine NEGATIVE (NEGATIVE); Tricyclic Antidepressant Urine NEGATIVE (NEGATIVE)
[2024-09-14 08:02] LABS: Hematocrit 37.4 % (36.0-48.0); Mean Corpuscular HGB Conc 34.8 g/dL (29.9-35.2); Mean Corpuscular Hemoglobin 30.7 pg (26.7-34.0); Mean Corpuscular Volume 88.4 fL (81.0-99.0); Mean Platelet Volume 11.4 fL (9.5-13.5); Platelet Count 220 10^3/uL (150-450); Red Blood Count 4.23 10^6/uL (4.20-5.40); Red Cell Distribution Width 13.8 % (11.0-15.0); White Blood Count 10.6 10^3/uL (4.0-11.0)
[2024-09-14] MEDS: 0.9 % SODIUM CHLORIDE 1,000 ML 125 ML IV (09:25)
[2024-09-14] MEDS: OXYTOCIN/0.9 % SODIUM CHLORIDE 20 UNITS/1,000 ML PLAST..BAG 999 UNIT IV (12:41)
--- NOTE | 2024-09-14 12:51 | PM.OBPRCVD ---
Procedure Intrapartal events: None Delivery augmentation: rupture of membranes Delivery monitor: external FHT and external uterine Route of delivery: Episiotomy Description: none L&D Laceration Description: none Estimated blood loss (mL): 250 Anesthesia type: None Disposition: floor Delivery date: 09/14/24 Gender: male presentation: vertex Placental delivery description: Spontaneous cord description: 3 Vessels
[2024-09-14] MEDS: KETOROLAC TROMETHAMINE 30 MG/ML VIAL IVP (13:32)
[2024-09-14] MEDS: ACETAMINOPHEN 325 MG TABLET 650 MG PO ×2 (14:48→23:54)
[2024-09-14] MEDS: IBUPROFEN 600 MG TABLET PO (19:29)
[2024-09-15] MEDS: IBUPROFEN 600 MG TABLET PO ×2 (06:46→20:28)
[2024-09-15 06:55] LABS: Basophils Percent Auto 0.2 % (0.2-2.0); Eosinophils Absolute Auto 0.1 10^3/uL (0.0-0.7); Eosinophils Percent Auto 0.9 % (0.9-7.0); Hematocrit 37.3 % (36.0-48.0); Hemoglobin 12.6 g/dL (12.0-16.0); Immature Granulocytes Abs Auto 0.04 10^3/uL (0.00-0.03); Immature Granulocytes Pct Auto 0.3 % (0.0-0.5); Lymphocytes Absolute Auto 2.6 10^3/uL (1.2-3.8); Mean Corpuscular HGB Conc 33.8 g/dL (29.9-35.2); Mean Corpuscular Hemoglobin 30.7 pg (26.7-34.0); Mean Corpuscular Volume 90.8 fL (81.0-99.0); Mean Platelet Volume 10.9 fL (9.5-13.5); Monocytes Absolute Auto 1.1 10^3/uL (0.3-0.8); Neutrophils Absolute Auto 7.9 10^3/uL (1.4-6.5); Neutrophils Percent Auto 67.6 % (43.0-75.0); Platelet Count 204 10^3/uL (150-450); Red Blood Count 4.11 10^6/uL (4.20-5.40); Red Cell Distribution Width 13.9 % (11.0-15.0); White Blood Count 11.7 10^3/uL (4.0-11.0)
[2024-09-15 08:02] VITALS: PULSE 75; TEMP 36.3
--- NOTE | 2024-09-15 09:53 | P.OBPN_ITS ---
OB - PN: Subj Subjective Patient comments: no complaints and pain well controlled [place] status: doing well Exam Constitutional Vital Signs, click to edit/add: Last Vital Signs Temp 97.4 F L 09/15/24 08:02 Pulse 75 09/15/24 08:02 Resp 16 09/15/24 08:00 BP 120/80 09/14/24 23:48 O2 Del Method Room Air 09/15/24 08:00 Documenting provider has reviewed patient's vital signs: yes Common normals: no apparent distress Respiratory Common normals: normal respiratory effort and clear to auscultation bilaterally Cardio Common normals: regular rate and regular rhythm GI Common normals: Normal to inspection, nondistended, normoactive bowel sounds present Extremity Common normals: no clubbing, cyanosis or edema and no calf tenderness Results Labs Labs: Short CBC 09/15/24 Range/Units 06:39 WBC 11.7 H (4.0-11.0) 10^3/uL Hgb 12.6 (12.0-16.0) g/dL Hct 37.3 (36.0-48.0) % Plt Count 204 (150-450) 10^3/uL OB - PN: A/P Plan - Vaginal Delivery day: 1 Plan: routine care Time Spent with Patient Time: Total time spent is greater than 50% in coordination of care (as documented) at patient's floor/unit and/or counseling patient: Total time spent with greater than 50% in coordination of care (as documented) at patient's floor/unit and/or counseling patient: less than 15 minutes
[2024-09-15 16:00] VITALS: BP 125/78; PULSE 79
[2024-09-15] MEDS: DOCUSATE SODIUM 100 MG CAPSULE PO (20:30)
[2024-09-16 00:04] VITALS: BP 124/85; PULSE 96; TEMP 36.9
[2024-09-16] MEDS: SERTRALINE HCL 50 MG TABLET PO (00:26)
[2024-09-16] MEDS: IBUPROFEN 600 MG TABLET PO (03:56)
--- NOTE | 2024-09-16 07:39 | PM.OBPN ---
OB - PN: Subj Subjective Patient comments: no complaints and pain well controlled [place] status: doing well Exam Constitutional Vital Signs, click to edit/add: Last Vital Signs Temp 98.5 F 09/16/24 00:04 Pulse 96 H 09/16/24 00:04 Resp 16 09/16/24 00:05 BP 124/85 09/16/24 00:04 O2 Del Method Room Air 09/16/24 00:05 Documenting provider has reviewed patient's vital signs: yes Common normals: no apparent distress Respiratory Common normals: normal respiratory effort and clear to auscultation bilaterally Cardio Common normals: regular rate and regular rhythm GI Common normals: Normal to inspection, nondistended, normoactive bowel sounds present Extremity Common normals: no clubbing, cyanosis or edema and no calf tenderness OB - PN: A/P Plan - Vaginal Delivery day: 2 Plan: routine care, discharge home and follow up 6 weeks Time Spent with Patient Time: Total time spent is greater than 50% in coordination of care (as documented) at patient's floor/unit and/or counseling patient: Total time spent with greater than 50% in coordination of care (as documented) at patient's floor/unit and/or counseling patient: less than 15 minutes
[2024-09-16 08:39] VITALS: BP 124/81; PULSE 81; TEMP 36.4
[2024-09-16] MEDS: DOCUSATE SODIUM 100 MG CAPSULE PO (08:59)
== END 2024-09-16 11:50 | disposition home or self-care (01) | DRG 560 ==
PROVIDERS: Admitting Provider Obstetrics & Gynecology; PCP Student in an Organized Health Care Education/Training Program; Visit Provider Obstetrics & Gynecology
DX: O80 Encounter for full-term uncomplicated delivery (principal); Z37.0 Single live birth; Z3A.38 38 weeks gestation of pregnancy
CPT/HCPCS: 36415; 59410; 76818; 80307; 81001; 85025; 85027; 86850; 86900; 86901; 87086; J1885

== ENCOUNTER 2025-03-10 12:58 | Emergency (ER) | payer OTHER, SELFPAY ==
[2025-03-10 13:02] VITALS: BP 91/78; PULSE 94; TEMP 36.4; O2SAT 97; BMI 25.0
--- OUTSIDE RECORDS SUMMARY | 2025-03-10 13:06 | XMS_ITS | Clinical Summary ---
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 Crew Supervisor Name Role Phone Sharmila King MD Unavailable [phone] Devendra Torres MD Primary Care Provider [phone] Allergies Active AllergyReactionsCriticalityNoted VujyHcuehyzlEgnbkdkwjbsFxilso49/20/2021 Other Reaction(s): stomach upset, Vomiting Other Reaction(s): Vomiting Other Reaction(s): Nausea/Vomiting Medications MedicationSigDispense QuantityRefillsLast FilledStart DateEnd DateStatus ondansetron ODT (Zofran-ODT) 4 MG disintegrating tablet Indications:Nausea and vomiting in ([facility])Take 1 tablet (4 mg) by mouth every 6 (six) hours if needed for nausea or vomiting for up to 30 doses 30 tablet 4Active MV & Min w/FA-DHA ( Gummies) 0.18-25 MG chewable tablet Indications:First trimester ([facility])Chew 1 each Daily 30 tablet 5Active iron polysaccharides (ProFe) 391.3 (180 Fe) MG capsule Take 391.3 mg by mouth DailyActive sertraline (Zoloft) 50 MG tablet Indications:6 weeks follow-up ([facility]),Anxiety, generalizedTake 1 tablet (50 mg) by mouth Daily 30 tablet 1105Active Family History Medical HistoryRelationNameCommentsNo Known ProblemsBrotherMitral valve prolapse FatherRelationNameStatusCommentsBrotherAliveFatherAliveMotherAlive Social History Tobacco UseTypesPacks/DayYears UsedDateSmoking Tobacco: Never Tobacco Cessation:Counseling Given: Not Answered Alcohol UseStandard Drinks/WeekCommentsNever0 (1 standard drink = 0.6 oz pure alcohol)CommentsNoSex and Gender InformationValueDate RecordedSex Assigned at BirthNot on fileLegal XvtHqxtpg00/15/2023 8:01 PM EDTGender Identity Not on fileSexual SzyawcbytkiPyocrnpw88/07/2024 9:45 AM EST Last Filed Vital Signs Vital SignReadingTime TakenCommentsBlood Swjwijxq629/72010/25/2024 4:13 PM EDT Pulse--Temperature--Respiratory Rate--Oxygen Saturation--Inhaled Oxygen Concentration--Hzhxoe99.9 kg (154 lb)10/25/2024 4:13 PM NMTExefiu708.3 cm (5' 6.25 )04/13/2018 12:00 PM ESTBody Mass Index24.6704/13/2018 12:00 PM EST Plan of Treatment DateTypeDepartmentCare Team (Latest Contact Info)Pwxwikqzkfa60/15/2025 2:30 PM ESTProcedure Visit [facility] [address] [address] Pradip Flowers DO [address] [place] [address] Insurance Care Teams Team MemberRelationshipSpecialtyStart DateEnd Date King, Sahrmila A, MD [address] [place] [address] PCP - External PCPFamily Medicine10/26/22 Devendra Torres MD [address] [place] [address] PCP - GeneralFamily Medicine08/14/23
--- OUTSIDE RECORDS SUMMARY | 2025-03-10 13:06 | XMS_ITS | Clinical Summary ---
Author Organization [facility] Address [address], [address] [place] [address] Care Team Providers Care Air Conditioning Service Technician Name Role Phone Unavailable Primary Care Provider Unavailabl e Allergies Active AllergyReactionsCriticalityNoted UvptTkfwywgxDsmwnduxvsl13/07/2023 Medications MedicationSigDispense QuantityRefillsLast FilledStart DateEnd DateStatus MV-Min-Fe Fum-FA-DHA ( 1 PO) Take 1 tablet by mouth dailyActive fluconazole (DIFLUCAN) 150 MG tablet take 1 tablet by mouth A ONE TIME DOSE11/07/2022ctive Active Problems ProblemNoted DateDiagnosed DateAnxiety and njmkbukxkd95/19/2022 Social History Tobacco UseTypesPacks/DayYears UsedDateSmoking Tobacco: NeverSmokeless Tobacco: Never Tobacco Cessation:Counseling Given: Not Answered Interpersonal Safety Domain Source: IP Abuse ScreeningAnswerDate RecordedHow often does anyone, including family and friends, physically hurt you?Not on file 11/14/2022How often does anyone, including family and friends, scream or curse at you?Not on file11/14/2022How often does anyone, including family and friends, insult or talk down to you?Not on file11/14/2022How often does anyone, including family and friends, threaten you with harm?Not on file11/14/2022Read-Only, Retired: Physical BfopoAtfwkq85/29/2023Read-Only, Retired: Verbal AbuseDenies 11/14/2022Read-Only, Retired: Emotional ldxccHrcndg50/29/2023Read-Only, Retired: Financial PjshzNfemit57/29/2023Read-Only, Retired: Sexual zwexvHvsfit90/29/2023 CommentsUnknownSex and Gender InformationValueDate RecordedSex Assigned at BirthNot on fileLegal VhlIhyeyf29/10/2013 9:41 PM ESTGender IdentityNot on fileSexual OrientationNot on file Last Filed Vital Signs Vital SignReadingTime TakenCommentsBlood Zzttiagi84/64005/20/2023 9:22 AM EST Dqktb658705/20/2023 9:22 AM VNZWtaghxejqfl33.4 ??C (97.6 ??F)11/14/2022 2:00 PM EDTRespiratory Podj278305/20/2023 9:22 AM ESTOxygen Azltgkbzrj42%05/20/2023 9:22 AM ESTInhaled Oxygen Concentration--Nnscxp36.1 kg (143 lb 8 oz)05/20/2023 9:22 AM SNHDlwstd413.6 cm (5' 5.98 )05/20/2023 9:22 AM ESTBody Mass Index23.17 05/20/2023 9:22 AM EST Plan of Treatment Health MaintenanceDue DateLast DoneCommentsHepatitis B vaccine (3 of 3 - 3-dose series), 04/11/2000Depression Epistpbjwe06/08/2012HIV screen 09/23/2014Hepatitis C dgiolr4009/23/2017Pap smear09/23/2020Flu vaccine (#1) 5COVID-19 Vaccine ( season)2025DTaP/Tdap/Td vaccine (7 - Td or Tdap)/, 04/19/2011, 01/18/2004, Additional history existsPolio srboifmWbarjtpud55/01/2004, 04/11/2000, 01/30/2000HPV vaccine Mzoeltqmq00/07/2017, 06/13/2011, 04/19/2011Meningococcal (ACWY) vaccineCompleted 10/23/2016Varicella xmyuguzJjebidszc26/07/2017, 09/26/2000Hepatitis A vaccine Aged OutNo longer eligible based on patient's age to complete this topicHib vaccineAged OutNo longer eligible based on patient's age to complete this topic Meningococcal B vaccineAged OutNo longer eligible based on patient's age to complete this topicPneumococcal 0-49 years VaccineAged OutNo longer eligible based on patient's age to complete this topic Insurance
--- OUTSIDE RECORDS SUMMARY | 2025-03-10 13:06 | XMS_ITS | Clinical Summary ---
Author Organization [facility] tem Address [facility] [id number] [address] [place] [address] Care Team Providers Care Senior Java Ui Developer Name Role Phone Devendra Torres MD Primary Care Provider [phone] Allergies Active AllergyReactionsCriticalityNoted DateCommentsAmoxicillinVomitingMedium 04/07/2021 Medications MedicationSigDispense QuantityRefillsLast FilledStart DateEnd DateStatus 25/iron fum/folic/dha (-1 ORAL) Take 1 tablet by mouth daily.Active mupirocin (BACTROBAN) 2 % ointment Apply 1 Application topically 3 (three) times a day. 22 g 4Active Additional Information Patient not taking.Reported on 02/05/2024 sertraline (ZOLOFT) 50 mg tablet 4Active Active Problems ProblemNoted DateDiagnosed DateLactating jehyin4011/07/2021nxiety and depression 09/04/2021Estimated Date of SfuougemPnaqqfeyPwt31/09/2025 Family History Medical HistoryRelationNameCommentsMitral valve prolapseFatherSleep apneaMother CancerNeg HxClotting disorderNeg HxDiabetesNeg HxHypertensionNeg HxRelationName StatusCommentsFatherAliveMotherAlive Social History Tobacco UseTypesPacks/DayYears UsedDateSmoking Tobacco: NeverSmokeless Tobacco: Never Tobacco Cessation:Counseling Given: Not Answered Alcohol UseStandard Drinks/WeekCommentsNever0 (1 standard drink = 0.6 oz pure alcohol)AUDIT-CAnswerDate RecordedQ1: How often do you have a drink containing alcohol?Never03/11/2020Average Number of DrinksNot on file03/11/2020Frequency of Binge DrinkingNot on file03/11/2020Overall Financial Resource Strain (CARDIA) AnswerDate RecordedHow hard is it for you to pay for the very basics like food, housing, medical care, and heating?Somewhat hard11/07/2021HQ-2AnswerDate RecordedTotal Hfzey836Edinburgh Depression ScaleAnswerDate RecordedEdinburgh Depression Scale Jeygd4941/22/2022The thought of harming myself has occurred to me.Hardly ever11/07/2021hildcareAnswerDate RecordedDo problems getting children's nursery assistant make it difficult for you to work or study?Yes11/07/2021EmploymentAnswerDate TwpnepqjJvnjobugdeJybgpgn41/24/2020 Hunger ScreeningAnswerDate RecordedWithin the past 12 months we worried whether our food would run out before we got money to buy more.Never True03/01/2024 Within the past 12 months the food we bought just didn't last and we didn't have money to get more.Never True4Purpose - LifeAnswerDate RecordedPurpose and direction in etoxAhgcgca71/11/2021Estimated Date of DeliveryComments Yes2024Sex and Gender InformationValueDate RecordedSex Assigned at Not on fileLegal AurTrbiba10/06/2015 11:56 AM EDTGender IdentityNot on file Sexual OrientationNot on file Last Filed Vital Signs Vital SignReadingTime TakenCommentsBlood Qtkoctac925/8303/01/2024 6:49 PM EDT Kjcvw599303/01/2024 6:49 PM QERErchobxqdaj09.6 ??C (97.9 ??F)03/01/2024 6:49 PM EDTRespiratory Pxzl0372 6:49 PM EDTOxygen Ayzccrdmcv51%03/01/2024 6:49 PM EDTInhaled Oxygen Concentration--Iliuaj53.9 kg (132 lb)03/01/2024 6:49 PM EDT Rugdne463.6 cm (5' 6 )03/01/2024 6:49 PM EDTBody Mass Index21.311 6:49 PM EDT Plan of Treatment DateTypeDepartmentCare Team (Latest Contact Info)Vrsdpboiwqg49/17/2025 3:30 PM ESTOffice Visit [facility] [address] [place] [address] [place] [id number] Fabien William, DO [address] [facility] [place], [place] [id number] Health MaintenanceDue DateLast DoneCommentsPap Smear09/23/2020epression Rkrvizisv08/06/081134/10/2023, 11/07/2021Influenza Uybpixt6601/17/2025Tobacco Qbnpceizp06/19/627712/dult BMI Igcpckqvx324DTaP,Tdap and Td Vaccines (7 - Td or Tdap)/, 04/19/2011, 01/18/2004, Additional history exists Medical Devices Not on file Insurance Advance Directives * Full Code (Latest Code Status on File) Date ActivatedDate InactivatedComments09/25/2021 12:10 PM09/27/2021 3:39 PM * Full Code Date ActivatedDate InactivatedComments08/24/2021 12:03 PM08/24/2021 2:24 PM Care Teams Team MemberRelationshipSpecialtyStart DateEnd Date Devendra Torres MD [address] [facility] [place] [address] PCP - GeneralInternal Tntezefj67/14/24
--- NOTE | 2025-03-10 13:11 | ECG_ITS ---
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 Measurements Intervals [place] Rate: 93 P: 44 WY: 138 QRS: 80 QRSD: 78 T: 56 QT: 342 QTc: 393 Interpretive Statements 1100 Sinus rhythm 9110 normal ECG Compared to ECG 08/07/2022 14:20:55 No significant changes Electronically Signed On 03-10-2025 19:19:57 EDT by GEOVANY SNOWDEN M.D.
--- NOTE | 2025-03-10 13:11 | XR_ITS ---
The [address] [address] Patient Name: BASSAM FERGUSON MRN: [id number] date: 2000 Sex: F Assigned Patient Location: ED.MAIN Current Patient Location: ER Accession/Order Number: [id number] Exam Date: 03/10/2025 13:26 Report Date: 03/10/2025 14:04 At the request of: JEREL WYNNE MD Procedure: XR chest 1V XR chest 1V 03/10/2025 1:30 PM SIGNS AND SYMPTOMS: ^CP ^Y PROTOCOL: Frontal radiograph of the chest COMPARISON: 08/07/2022 FINDINGS: The trachea is midline. The heart and mediastinal structures are within normal limits. The lung parenchyma is clear. The bony thorax is intact. XR/XR chest 1V IMPRESSION: No acute cardiopulmonary pathology. Impression dictated by: Patricio Multani M.D. 03/10/2025 2:04 PM Dictation Location: [employer] Electronically authenticated by: [id number] Y Date: 03/10/2025 14:04
[2025-03-10 13:27] LABS: Hematocrit 43.4 % (36.0-48.0); Hemoglobin 14.8 g/dL (12.0-16.0); Immature Granulocytes Abs Auto 0.00 10^3/uL (0.00-0.03); Immature Granulocytes Pct Auto 0.0 % (0.0-0.5); Lymphocytes Absolute Auto 2.4 10^3/uL (1.2-3.8); Mean Corpuscular HGB Conc 34.1 g/dL (29.9-35.2); Mean Corpuscular Hemoglobin 30.3 pg (26.7-34.0); Mean Corpuscular Volume 88.8 fL (81.0-99.0); Platelet Count 185 10^3/uL (150-450); Red Blood Count 4.89 10^6/uL (4.20-5.40); White Blood Count 5.9 10^3/uL (4.0-11.0)
[2025-03-10 13:45] LABS: Anion Gap 14.3; Blood Urea Nitrogen 14.0 mg/dL (7.0-18.0); Calcium 9.9 mg/dL (8.5-10.1); Carbon Dioxide 25.6 mmol/L (21.0-32.0); Chloride 105 mmol/L (98-107); Estimated GFR (African America >60 (>=60 mL/min/1.73m^2); Estimated GFR (Non-African Ame >60 (>=60 mL/min/1.73m^2); Glucose 104 mg/dL (74-106); Potassium 3.9 mmol/L (3.5-5.1); Sodium 141 mmol/L (136-145)
--- NOTE | 2025-03-10 13:49 | CT_ITS ---
The [address] [address] Patient Name: BASSAM FERGUSON MRN: [id number] date: 2000 Sex: F Assigned Patient Location: ER Current Patient Location: ER Accession/Order Number: [id number] Exam Date: 03/10/2025 14:11 Report Date: 03/10/2025 14:36 At the request of: JEREL WYNNE MD Procedure: CT angio chest CTA Chest with PE protocol TECHNIQUE: Axial imaging with 2-D and 3-D reconstruction. The CT exam was performed using one or more the following dose reduction techniques: Automated exposure control, adjustment of the MA and/or Kv according to patient size, or use of the iterative reconstruction technique. History: Chest pain. Elevated d-dimer. COMPARISON: None THYROID: Unremarkable TRACHEA AND BRONCHI: Patent ESOPHAGUS: Unremarkable. HEART: Within normal limits PERICARDIAL EFFUSION: None CORONARY ARTERY CALCIFICATION: None MEDIASTINUM: No adenopathy. No pneumoperitoneum. No mediastinal hematoma. PULMONARY RONAL: No hilar mass or adenopathy is seen. THORACIC AORTA Unremarkable PULMONARY EMBOLUS: None LUNG NODULE None LUNGS: Lungs are clear PLEURAL EFFUSION: None PNEUMOTHORAX: No pneumothorax seen. CHEST WALL: No abnormality AXILLA: Unremarkable BONY STRUCTURES Intact UPPER ABDOMEN: Images of the upper abdomen are noncontributory. CT/CT angio chest IMPRESSION: No acute pulmonary embolus. Impression dictated by: Abhinav Alcantar M.D. 03/10/2025 2:36 PM Dictation Location: [place] [address] Electronically authenticated by: [id number] Y Date: 03/10/2025 14:36
--- NOTE | 2025-03-10 14:17 | ED.GENADUL1 ---
HPI HPI - General Adult General Chief complaint: Chest Pain Stated complaint: chest pain Time Seen by Provider: 03/10/25 13:00 Source: patient Mode of arrival: walk-in History of Present Illness HPI narrative: 24-year-old female presented to the emergency department for chest pain. She is complaining of pain in a localized area on the left side of her chest. There is been no trauma or fever or cough or back pain. It does not radiate. She had a baby 5 months ago and is still breast-feeding. She has not had a period since becoming . No history of DVT or PE. Related Data Home Medications ?Medication ?Instructions ?Recorded ?Confirmed sertraline 50 mg tablet 50 mg PO DAILY 05/23/24 03/10/25 Allergies Allergy/AdvReac Type Severity Reaction Status Date / Time amoxicillin Allergy Unknown Verified 03/10/25 13:02 Opioid HPI Opioid Management Most Recent Opioid Data: Last Pain Scale 3 Today, 13:02 Ur Phencyclidine Scrn, (NEGATIVE) Negative 09/14/24, 06:25 Review of Systems ROS Narrative A ten point review of systems is negative except as noted above. PFSH PFSH Medical History (Updated 03/10/25 @ 14:51 by Dale Ott MD) Scoliosis deformity of spine ?M41.9 - Scoliosis, unspecified (ICD-10) Surgical History (Updated 09/14/24 @ 10:58 by Addis Joy) Hx of tonsillectomy ?Z90.89 - Acquired absence of other organs (ICD-10) Social History Smoking status: Never smoker Little interest or pleasure in doing things: not at all Feeling down, depressed, or hopeless: several days Exam Narrative Exam Narrative: Nurses note and vital signs reviewed General:The patient appears well and in no apparent distress.Patient is resting comfortably on cart. Skin:Warm, dry, no pallor noted.There is no rash noted. Head:Normocephalic, atraumatic Eye: Normal conjunctiva, no drainage Ears, Nose, Mouth, and Throat: oral mucosa is moist. Nares patent. Cardiovascular:Regular Rate and Rhythm. Chest wall has no crepitus bruise rash or abrasion. Palpation seems to partially reproduce her symptoms. Respiratory:Patient is in no distress, no accessory muscle use, lungs are clear to auscultation, no wheezing, rales or rhonchi Back:non-tender GI: Soft and nontender Musculoskeletal: The patient has no evidence of calf tenderness, no pitting edema, symmetrical pulses noted bilaterally Neurological:A&O, normal speech Psychiatric:Cooperative Constitutional Vital Signs, click to edit/add: Last Vital Signs Temp 97.6 F 03/10/25 13:02 Pulse 94 H 03/10/25 13:02 Resp 16 03/10/25 13:02 BP 91/78 03/10/25 13:02 Pulse Ox 97 03/10/25 13:02 O2 Del Method Room Air 03/10/25 13:02 Course Vital Signs Vital signs: Vital Signs Temperature 97.6 F 03/10/25 13:02 Pulse Rate 94 H 03/10/25 13:02 Respiratory Rate 16 03/10/25 13:02 Blood Pressure 91/78 03/10/25 13:02 Pulse Oximetry 97 03/10/25 13:02 Oxygen Delivery Method Room Air 03/10/25 13:02 Temperature 97.6 F 03/10/25 13:02 Pulse Rate 94 H 03/10/25 13:02 Respiratory Rate 16 03/10/25 13:02 Blood Pressure 91/78 03/10/25 13:02 Pulse Oximetry 97 03/10/25 13:02 Oxygen Delivery Method Room Air 03/10/25 13:02 Medical Decision Making MDM Narrative Medical decision making narrative: D-dimer was elevated at 4.34 so a CAT scan of the chest was performed and was found to be negative. The rest of her workup is negative as well and she is able to be discharged home. At this point my clinical impression is that the patient has chest wall pain. Treatment diagnosis and follow-up were discussed with the patient. Differential Diagnosis Differential Diagnosis: Chest wall pain, OK, pneumothorax, PE Lab Data Lab results reviewed: Yes I reviewed the patient's lab results Labs: Lab Results 03/10/25 Range/Units 13:15 WBC 5.9 (4.0-11.0) 10^3/uL RBC 4.89 (4.20-5.40) 10^6/uL Hgb 14.8 (12.0-16.0) g/dL Hct 43.4 (36.0-48.0) % MCV 88.8 (81.0-99.0) fL MCH 30.3 (26.7-34.0) pg MCHC 34.1 (29.9-35.2) g/dL RDW 12.4 (11.0-15.0) % Plt Count 185 (150-450) 10^3/uL MPV 10.0 (9.5-13.5) fL Neut % (Auto) 49.1 (43.0-75.0) % Lymph % (Auto) 41.1 (20.5-60.0) % [place] % (Auto) 7.3 (1.7-12.0) % Eos % (Auto) 2.0 (0.9-7.0) % Baso % (Auto) 0.5 (0.2-2.0) % Neut # (Auto) 2.9 (1.4-6.5) 10^3/uL Lymph # (Auto) 2.4 (1.2-3.8) 10^3/uL Chester # (Auto) 0.4 (0.3-0.8) 10^3/uL Eos # (Auto) 0.1 (0.0-0.7) 10^3/uL Baso # (Auto) 0.0 (0.0-0.1) 10^3/uL Abs Immat Gran (auto) 0.00 (0.00-0.03) 10^3/uL Imm/Tot Granulo (auto) 0.0 (0.0-0.5) % D-Dimer 4.34 H* (<=0.59) mg/L FEU Sodium 141 (136-145) mmol/L Potassium 3.9 (3.5-5.1) mmol/L Chloride 105 (98-107) mmol/L Carbon Dioxide 25.6 (21.0-32.0) mmol/L Anion Gap 14.3 BUN 14.0 (7.0-18.0) mg/dL Creatinine 0.67 (0.55-1.02) mg/dL Est GFR ( Amer) >60 (>=60 mL/min/1.73m^2) Est GFR (Non-Af Amer) >60 (>=60 mL/min/1.73m^2) BUN/Creatinine Ratio 20.9 Glucose 104 (74-106) mg/dL Calcium 9.9 (8.5-10.1) mg/dL Troponin I High Sens <4.0 L (4.0-51.3) pg/mL Serum HCG, Qual Negative (NEGATIVE) Imaging Data Chest x-ray: Radiologist's impression: ITS Impressions Chest X-Ray 03/10/25 13:11 IMPRESSION: No acute cardiopulmonary pathology. Impression dictated by: Patricio Multnai M.D. 03/10/2025 2:04 PM Dictation Location: [place] [address] Electronically authenticated by: [id number] Y Date: 03/10/2025 14:04 Chest CTA 03/10/25 13:49 IMPRESSION: No acute pulmonary embolus. Impression dictated by: Abhinav Alcantar M.D. 03/10/2025 2:36 PM Dictation Location: [place] [address] Electronically authenticated by: [id number] Y Date: 03/10/2025 14:36 ECG Data Attestation: I personally reviewed and interpreted this ECG as follows: (EKG on my interpretation shows normal sinus rhythm with a rate of 93 and no acute change) Discharge Plan Discharge Chief Complaint: Chest Pain Clinical Impression: Chest pain Patient Disposition: Home, Self-Care Time of Disposition Decision: 14:51 Condition: Good Mode of Transportation: Private Vehicle Prescriptions / Home Meds: No Action sertraline 50 mg tablet 50 mg PO DAILY Print Language: Wolof Instructions: Chest Wall Pain (ED) Referrals: Devendra Torres ND [Primary Care Provider] - 1 week
== END 2025-03-10 14:57 | disposition home or self-care (01) ==
PROVIDERS: Emergency Provider Emergency Medicine; PCP Student in an Organized Health Care Education/Training Program
DX: R07.89 Other chest pain (principal)
CPT/HCPCS: 36415; 71045; 71275; 80048; 84484; 84703; 85025; 85378; 93005; 99285; Q9967